=== PATIENT | male | born 1955 | race Caucasian/White ===

== ENCOUNTER → 2022-10-02 | Outpatient (CLI) | payer MEDICARE, OTHER, SELFPAY ==
--- NOTE | 2022-10-02 08:17 | PCM.CR.HP2 ---
CR - History & Physical - General Arrival date:: 10/02/22 Arrival time:: 08:16 Date of Referral:: 09/25/22 Date of CR Evaluation:: 10/02/22 Referring Physician: Dr. Oleksandr Gipson Primary Diagnosis: S/P PCI w/coronary stenting - History of Present Cardiac Event Onset Date: Enter Onset Date of cardiac illnesses in Comment field below PTCA or coronary stenting:: Yes - Z95.5 Type of Symptoms:: Shortness of breath, stress test, EKG and then after the diagnostic tests sent to clinical lab technologist and had stent. Interventions with present event:: Daignostic testing and determined cath was needed, placed stent - Sleep Disorder Evaluation Hx of Sleep Apnea: No Do you snore loudly (louder than talking or can be heard through closed doors)?: No Do you often feel tired/ fatigued/ sleepy during daytime?: No Has anyone observed you stop breathing during sleep?: No History of Hypertension (for STOP score): Yes STOP Results: Negative - Medications Home Medications: Ambulatory Orders Medication Instructions Recorded amlodipine 10 mg tablet (Norvasc) 10 mg PO DAILY 10/02/22 aspirin 81 mg tablet 81 mg PO DAILY 10/02/22 chlorthalidone 25 mg tablet 25 mg PO DAILY 10/02/22 empagliflozin 10 mg tablet 10 mg PO DAILY 10/02/22 (Jardiance) fenofibrate nanocrystallized 145 145 mg PO DAILY 10/02/22 mg tablet (Tricor) insulin glargine 100 unit/mL 44 unit subcut DAILY 10/02/22 subcutaneous solution lisinopril 40 mg tablet 40 mg PO DAILY 10/02/22 metformin 1,000 mg tablet 1,000 mg PO BID 10/02/22 metoprolol tartrate 25 mg tablet 25 mg PO BID 10/02/22 rosuvastatin 10 mg tablet (Crestor) 10 mg PO DAILY 10/02/22 semaglutide 1 mg/dose (2 mg/1.5 1 mg subcut QWEEK 10/02/22 mL) subcutaneous pen injector (Ozempic) sildenafil 100 mg tablet (Viagra) 100 mg PO DAILY PRN Erectile 10/02/22 Dysfunction ticagrelor 90 mg tablet (Brilinta) 90 mg PO Q12H 10/02/22 - Allergies Allergies/Adverse Reactions: Allergies No Known Drug Allergies Allergy (Verified 10/02/22 08:30) Other Advanced Directives - Advanced Directives Power of Commercial Account Manager: Yes Living Will: Yes Advance Directives Information Provided: No Advance Directives on File: No DNR Order?:: No - MOLST See MOLST form: No Past Medical History - Covid-19 Screening Fever: No Unexplained muscle aches: No Current respiratory symptoms: No Upper respiratory infections symptoms: No Gastro-intestinal symptoms: No Prq-Ziix-Vnftnd symptoms: No Has tested positive for COVID-19 in last 30 days: No Date of testin10/02/22 - Fuly vaccinated Had contact w/person w/symptoms or Covid-19 (+) last 14 days: No Has High Risk Exposures ID'd by Health dept/Inf Control team: No 65 years or older:: Yes Lives in Assisted Living facility:: No Has a serious heart condition:: No Immunocompromised:: No Severely obese (Body Mass Index of 40 or higher):: No Diabetic:: Yes Has chronic kidney disease undergoing dialysis:: No Has liver disease:: No - Past Medical Illness Medical History: Past Medical History (Last Updated 10/02/22 @ 08:40 by Samson Colon CRT, BOILER ASSISTANT OPERATOR, BS) Atherosclerotic heart disease of [place] coronary artery without angina pectoris I25.10 Benign prostatic hyperplasia N40.0 Bradycardia R00.1 Erectile dysfunction N52.9 Essential (primary) hypertension I10 History of left heart catheterization Z98.890 Hyperlipidemia, unspecified E78.5 Obesity (BMI 30.0-34.9) E66.9 Type 2 diabetes mellitus without complications E11.9 - Past Surgical History Surgical History: Past Surgical History (Last Updated 10/02/22 @ 08:46 by Samson Colon CRT, BOILER ASSISTANT OPERATOR, BS) History of back surgery Z98.890 Social History - Smoking History Smoking Status: Former smoker - 1997 Hx Tobacco Use: Yes Hx Smoking Exposure: Yes - Alcohol Use Alcohol Usage: No - Substance Abuse Hx Substance Use: No - Occupation 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 Left click = Reports ([place]) Review of Present Symptoms: Reports: Shortness of Breath with Exertion, Fatigue, Appetite - Normal. Denies: Shortness of Breath at Rest, Angina, Dizziness/Lightheadedness, Heart Arrhythmia/Irregularities, Appetite - Special Diet - Low sodium, Low Fat, No added sugar (Diabetic), Sleep - Normal - wake up alot, about half of what it was prior, Sexual Changes - Pain Is Patient Pain Free?: Yes Pain Location: none Pain Level: 0/10 Risk Factor Assessment - Vital Signs Temperature: 97 F - 8 Respiratory Rate: 14 Pulse Ox: 99 Blood Pressure: 136/74 - Pulse Pulse Rate: 72 Pulse Rhythm: Regular - Hypertension Blood Pressure Sitting - Left Arm: 136/74 - Diabetes Diabetic History: Type II, Medication Dependent, Insulin Dependent - Obesity Height: 5 ft 8 in Weight:: 200 lb Weight in Pounds: 200.0 lbs Weight Source: Stated by Patient Body Mass Index (BMI): 30.4 Nutritional Referral for Obesity: Yes - Physical Inactivity Physical Inactivity: Reg Exercise 30 min/day, Physically demanding job, Recreational activity - Risk Stratification Risk Guidelines: Lowest Risk: Risk Factor for Dyslipidemia, Risk Factor for Diabetes, Risk Factor for Obesity, Risk Factor for Hypertension Motivation - Motivation to Participate On a scale of 1 to 10, how prepared are you to commit to attending program?: 9 What do you see as barriers to successfully being able to complete the program?: no What do you see as the benefits of succesfully completing the program? In other words, what do you hope to get out of participating in the program?: More engergy, healthier Are there issues you are dealing with that will interfere with completing the program?: no Do you have a spouse or signficant other, family or friends who will help support you to complete the program?: Yes
--- NOTE | 2022-10-02 08:18 | CR.ITP_ITS ---
Diagnosis - General Information Admitting Diagnosis: S/P PCI w/coronary stenting Secondary Diagnosis: I25.10, DM Type II, HLD, HTN, Obesity Personal Learning Style:: Audio/Visual, Written Barriers to Learning: Vision Impairment Stage of change r/t lifestyle modifications:: Action Gave educational material for:: Treating Heart Disease, Emotions & Heart Disease, Stress Management & Relaxation, Sleep Disorders & Heart Disease, How The Heart Works, What it means to have Heart Disease, How Coronary Artery Disease is Diagnosed, Heart Procedures, What Heart Medications Do, Risk Factors & Modifications, Living an Active Life, Nutrition - Education/Goals Individual Counseling: Initial Assessment: Abnormal Cholesterol Levels, High Blood Pressure, Overweight/Obesity, Diabetes Cardiac Rehabilitation Goals: 1. Maintain the individual as the primary focus of care. 2. To improve the patient's quality of life. 3. Identification of c ardiac risk factors and provide cardiac risk factor management. 4. Enhance the psychosocial status of the patient. 5. Reconditioning enough to allow the patient to resume customary activities. 6. Control symptoms of cardiac disease Personal Goals: Initial Assessment: Quit smoking (participate in smoking cessation, Improve management of stress and emotions, Improve energy level, Improve knowledge of cardiac disease, Improve muscle strength and endurance, Improve diet and eating habits (eat healthier), Control risk factors (learn risk factor modification) Scale for measuring improvement of personal goals: Enter appropriate number in Comments. 2 = Unchanged. 3 = Slightly Better. 4 = Moderate Improvement. 5 = Met my Goal - Diagnosis & Disease Process Outcomes/Goals: Pt IDs own risk factors & lifestyle modifications by Session 10, Verbalizes symptoms of angina & response by session 3., Pt independently manages Plan/Interventions: Assist Pt to ID & engage in lifestyle modification to reduce CVD risk, Instruct on individual risk factors, Review symptoms of angina & laurie gency actions, Review secondary diagnosis & identify educational needs. - Safety Referral to Physical Therapy: No Referral to [facility] Case Management: No Fall Risk Assessed:: Yes Assistive Devices:: None Exercise - Initial Assessment - Visit Date of Eval: 10/02/22 Session #:: 0 - pre-cardiac rehab evaluation Mets: Pre-: >7 METS for 30 minutes by discharge - Physician Prescribed Exercise Modalities: Treadmill, Rower, Airdyne Frequency: 3x/week for 12 weeks [36 sessions] Intensity: 60-80% of age predicted maximum heart rate reserve Duration: 30 - 45 minutes Current METSs:: 3.0 Target Heart Rate:: 100-115 Resting Blood Pressure: 136/74 EKG Type: Sinus Rhythm Current Physical Activity or Exercising minutes: Physically Active Daily - Outcomes & Goals Goals:: Verbalizes understanding of THR, RPE & goal METS by session 6, Documents in home exercise log/reports 30 min aerobic 5 day/wk by DC, Demonstrates accurate pulse taking by DC - Intervention & Plan Exercise Program Goals: Instruct on personal THR & RPE, Instruct on MET level & personal MET goal, Show patient to take own pulse /validate performance until accurate, Instruct on home exercise - Physical Activity Home Exercise Physical Activity - Home Exercise: Safe Exercise, Warm-up, Self-monitoring, Cool-Down, Home Exercise > 30 min Daily, Sitting Time <3 hours/daily - Outcomes & Goals Outcomes/Goals: Demonstrates correct Warm-up/exercise Cool-Down (S3) if = 2.5 METs, Verbalizes symptoms of exercise intolerance by Session 3 (S3), Demonstrate safe equipment use (S3) & follows exercise prescrition (6) - Intervention & Plan Plan/Intervention: Instruct warm-up & cool-down if exercising at > 2 METs, Instruct on symptoms of exercise intolerance & actions to take, Instruct & monitor on saf, Assess intial functional capacity & safety risk Nutrition - Initial Assessment - Program Goals Nutrition Program Goals: LDL <100 optimal. 100 - 129 Near optimal. 130 - 159 Borderline High. 160 - 189 High. Total Cholesterol <200 desirable. 200 - 239 Borderline High. >/= 240 High. HDL < 40 Low >/=60 High. Triglycerides <150 desirable. <199 optimal. VlDL 5 - 40. HgbA1C <7%. BMI <25 Patient has diagnosis of Hyperlipidemia (ICD E78)?: Yes - Visit Date of Assessment:: 10/02/22 Session #:: 0 [facility] - Cholesterol/Lipids (Other Core Measures) Triglycerides (mg/dL): 0 - Current labs unavailable Determine presence & major risk factors that modify LDL goal: Hypertension or hypertensive medication, Family history of premature CHD in Male < 55 years: female <65 yearsFa, Age men > 45 years; women >/= 55 years Outcomes/Goals: Pt IDs own risk factors & lifestyle modifications by Session 10, Verbalizes symptoms of angina & response by session 3., Pt independently manages Intervention/Plan: Instruct on personal lipid levels & lipid goals/NCEP guidelines, Instruct on cholesterol - Diabetes (Other Core Measures) Diabetes Type: Diagnosis Type II ICD-10 E11 Fasting blood glucose:: 0 - Current labs unavailable Outcomes/Goals:: Able to state symptoms of, Able to state, Able to state Intervention/Plan:: Instruct on, Refer to, Instruct on - Weight Mgt (Other Care) Not Applicable: No Height: 5 ft 8 in Weight:: 200 lb BMI: 30.4 Diagnosis Overweight/Obesity BMI> 30% ICD-10 E66: Yes Diagnosis High BMI/Morbid Obesity BMI> 35% ICD-10 Z68: No Outcomes/Goals: Pt sets, maintains & shows weight loss goal & trend during rehab Intervention/Plan: Instruct on ideal BMI & set weight loss goal w/patient, Assist pt to ID & incorporate diet changes for weight loss by S9, Refer to Structured Weight Loss program as appropriate, Encourage goal of using 250- 300dcal per session for weight loss - Healthy Eating Habits Will attend diet classes:: Yes Outcomes/Goals:: Consume diet rich in vegs,fruits,whole grain/high fiber,fish,lean meat, Limit sat/trans fats,cholesterol & added salts & sugars Intervention/Plan:: Assess current eating habits - Education Gave educational materials for:: Signs & symptoms of hypoglycemia, Signs & sympt oms of hyperglycemia, Relate diabetes to coronary artery disease, Healthy eating Nutrition - 30-Day Assessment Nutrition - 60-Day Assessment Nutrition - 90-Day Assessment Nutrition - Final Assessment Core - Initial Assessment - Visit Date of Eval: 10/02/22 Session #:: 0 - Pre-cardaic rehab evaluation - Medication Compliance Preventative Medication(s):: Aspirin, Clopidogrel/P2Y12 inhibit, Statin/lipid, Beta prabha H/O mental health issues: depression, anxiety, or addiction?: No Doesn?t believe in the benefits of treatment?: No Believes medications are unnecessary or harmful?: No Has a concern about medication side effects?: No Expresses concern over the cost of medications?: No Outcomes/Goals: Verbalizes medications,desired effect & common side effects @ DC, Pt self-reports following medication regimen, Keeps card in wallet w/medications listed by DC Interventions/plans: Instruct on medication effects & side effects, Review medication list w/patient every two weeks, Instruct importance of taking meds as ordered & assist problem solving - Tobacco Use Tobacco Use: Non-smoker - Hypertension Hypertension Diagnosis:: Hypertension ICD-10 I10 Resting Blood Pressure:: 136/74 - Stage 1 HTN [place] [employer] Hypertension Guidelines: [place] [employer] Hypertension Guidelines. Normal BP Less than 120/80. Elevated BP 120/80. Hypertension Stage 1: BP 130-139/80-89. Hypertesnion Stage 2: BP 140 or higher/90 or higher. Hypertension Crisis: BP higher than 180/120 Outcomes/Goals: Able to verbalize/achieve optimal blood pressure <130/80, Incorporates diet changes & exercise for blood pressure control by DC Interventions/plan: Instruct on optimal blood pressure, hypertension & medications, Instruct on effects of sodium, alcohol, stress, exercise &hypertension - Tobacco Cessation Referral Smoking Cessation Referral:: No Individual Education/Counseling:: No Education Schedule Given:: Yes Core - 30-Day Assessment Core - 60-Day Assessment Core - 90 Day Assessment Core - Final Assessment Psychosocial - Initial Assess - VIsit Date of Eval: 10/02/22 Session #:: 0 - Pre-cardiac Rehab evaluation Not Applicable: Yes History of previous Mental disease:: No - Psychosocial Test Tool Used:: [employer] QOL Cardiac, PHQ-9 Questionnaire phq-9 Severity: Severity. 1-4 Minimal Depression. 5-9 Mild Depression. 10-14 Moderate Depression. 15-19 Moderately Sever Depression. 20-27 Severe Depression. Rule: - Referral to Behavioral Health PS - Interventions: Yes Attend Stress Management Classes, No Referral to Behavioral Health if PHQ-9 score >9:, No Referral to [facility], No Referral to Physician if PHQ-9 if score is 5-9: - Outcomes/Goals: See list Psychosocial Outcomes/Goals:: ID's personal stressors & 2 strategies to manage stress by discharge - Intervention/Plan: See List Interventions/Plan:: Assess stressors,coping strategies & signs of derpression on admission, Instruct/assist pt to develop coping & personal stress Mgt strategies, Instruct patient to recognize signs & symptoms of depression, Instruct patient to recog Psychosocial - 30-Day Assess Psychosocial - 60-Day Assess Psychosocial - 90-Day Assess Psychosocial - Final Assessmen Patient Health Questionnaire Initial Assessment 1. Little interest or pleasure in doing things: Not at all 2. Feeling down, depressed, or hopeless: Not at all 3. Trouble falling or staying asleep, or sleeping too much: Not at all 4. Feeling tired or having little energy: More than half the days 5. Poor appetite or overeating: Not at all 6. Feeling bad about yourself -- or that you are a failure or have let yourself or your family down: Not at all 7. Trouble concentrating on things, such as reading the newspaper or watching television: Not at all 8. Moving or speaking so slowly that other people could have noticed. Or the opposite - being so fidgety or restless that you have been moving around a lot more than usual: Not at all 9. Thoughts that you would be better off , or of hurting yourself in some way: Not at all How difficult have these problems made it for you to do your work, take care of things at home, or get along with other people?: Not difficult at all Total Score: 2 DANNY-Q SV Test - Statements CAD is a disease of the arteries in the heart: False Examples of risk factors for heart disease: True Angina is chest pain or discomfort: True The benefits of resistance training include: True Eating more meat and dairy products: False Anti-platelet medications such as aspirin are important: True The only effective way to manage stress: False An exercise warm-up slowly increases heart rate: True Prepared, processed foods usually have high sodium: I Don't Know Depression is common after a heart attack: True The statin medications lower cholesterol: True To control blood pressure, lower the amount of sodium: True If someone gets chest discomfort during walking: False Transfats are partially hydrogenated vegetable oils: True Sleep apnea that is not treated increases the risk: False To control cholesterol, one should become a vegetarian: I Don't Know Someone knows if he/she is exercising at the right level: True Diabetes cannot be prevented with exercise & health eating: False Stress is a large risk for heart attack: True A diet that can help lower blood pressure is rich in: True - Total Score Total Correct Responses: 18 Self-Efficacy 30-Day Re-eval Assessment We would like to know how confident you are in doing certain activities. Please select your confidence level for:: Select your confidence level for the following using the scale 1-10 where 1 is not at all confident and 10 is totally confident. Your score is the average of all 6 responses. Fatigue: How confident are you that you can keep the fatigue caused by your disease from interfering with the things you want to do? Select Number: 5 Physical Discomfort or Pain: How confident are you that you can keep the physical discomfort or pain of your disease from interfering with the things you want to do? Select Number: 5 Emotional Distress: How confident are you that you can keep the emotional distress caused by your disease from interfering with the things you want to do? Select Number: 9 Other Symptoms or Health Problems: How confident are you that you can keep other symptoms or health problems from interfering with the things you want to do? Select Number: 5 Different Tasks and Activities: How confident are you that you can do the different tasks and activities needed to manage your health condition so as to reduce your need to see a doctor? Select Number: 9 Medication: How confident are you that you can do things other than just taking medication to reduce how much your illness affects your everyday life? Select Number: 6 Total Score:: 6 We would like to know how confident you are in doing certain activities. Please select your confidence level for:: Select your confidence level for the following using the scale 1-10 where 1 is not at all confident and 10 is totally confident. Your score is the average of all 6 responses. Fatigue: How confident are you that you can keep the fatigue caused by your disease from interfering with the things you want to do? Physical Discomfort or Pain: How confident are you that you can keep the physical discomfort or pain of your disease from interfering with the things you want to do? Emotional Distress: How confident are you that you can keep the emotional distress caused by your disease from interfering with the things you want to do? Other Symptoms or Health Problems: How confident are you that you can keep other symptoms or health problems from interfering with the things you want to do? Different Tasks and Activities: How confident are you that you can do the different tasks and activities needed to manage your health condition so as to reduce your need to see a doctor? Medication: How confident are you that you can do things other than just taking medication to reduce how much your illness affects your everyday life? Nutrition Survey - Nutrition Survey Initial Have you lost >10 lbs over the past 2 months without trying?: No Are you following a special diet at home for diabetes, low fat, or low salt?: Yes Are you interested in meeting with a dietitian for help understanding your diet?: Yes Do you eat less than 3 meals a day?: No Do you eat fatty meats (currie, sausage, ribs, etc), fried foods, desserts, large amounts of salad dressings, margarine, butter, or cheese most days?: Yes Do you have food allergies? [Enter types in comment field]: No Do you eat in restaurants more than 3 times a week?: No Do you season food with salt, seasoning salt, or garlic salt?: Yes Do you used canned, boxed, frozen meals, or soups, seasoning packets?: No Total Score:: 4
[2022-10-02 08:50] VITALS: BP 136/74; PULSE 72; RESP 14; TEMP 36.1; O2SAT 99; BMI 30.4
[2022-10-02 09:19] VITALS: BP 136/74; BMI 30.4
== END | disposition home or self-care (01) ==
DX: Z95.5 Presence of coronary angioplasty implant and graft (principal)

== ENCOUNTER 2022-10-09 09:15 | Outpatient (RCR) | payer MEDICARE, OTHER, SELFPAY ==
[2022-10-02 09:08] VITALS: BMI 30.4
== END 2022-10-20 23:59 ==
LOC: CR 09:15
DX: Z95.5 Presence of coronary angioplasty implant and graft (principal)
CPT/HCPCS: 93798

== ENCOUNTER 2022-11-20 09:15 | Outpatient (RCR) | payer MEDICARE, OTHER, SELFPAY ==
[2022-10-02 09:19] VITALS: BMI 30.4
--- NOTE | 2022-11-01 07:32 | PCM.CR.ITP ---
Exercise - Initial Assessment Visit Session #:: 3 Comments:: Patient has only attnded 3 sessions to date. His last session was on 10/09/2022 and the patient has not returned to CR. Psychosocial - Initial Assess Target Goals Target Goals Nutrition Survey Nutrition Survey Instructions Scoring Instructions Exercise - 30-day Assessment Visit Date of Eval: 11/01/22 Session #:: 3 Comments:: Patient has only attnded 3 sessions to date. His last session was on 10/09/2022 and the patient has not returned to CR. Nutrition - 30-Day Assessment Program Goals Nutrition Program Goals Patient has diagnosis of Hyperlipidemia (ICD E78)?: Yes Visit Date of Eval: 11/01/22 Session #:: 3 Core - 30-Day Assessment Visit Date of Eval: 11/01/22 Session #:: 3 Psychosocial - 30-Day Assess VIsit Date of Eval: 11/01/22 Session #:: 3 Not Applicable: Yes History of previous Mental disease:: No Target Goals Target Goals Psychosocial - 60-Day Assess Target Goals Target Goals Psychosocial - 90-Day Assess Target Goals Target Goals Psychosocial - Final Assessmen Target Goals Target Goals
== END 2022-11-20 23:59 ==
LOC: CR 09:15
DX: I25.10 Atherosclerotic heart disease of native coronary artery without angina pectoris (principal); Z95.5 Presence of coronary angioplasty implant and graft
CPT/HCPCS: 93798

== ENCOUNTER 2022-12-20 08:00 | Outpatient (RCR) | payer MEDICARE, OTHER, SELFPAY ==
[2022-10-02 09:19] VITALS: BMI 30.4
--- NOTE | 2022-11-29 11:33 | CR.ITP_ITS ---
Nutrition - Initial Assessment Weight Mgt (Other Care) Height: 5 ft 8 in Weight:: 200 lb BMI: 30.4 Psychosocial - Initial Assess Target Goals Target Goals Patient Health Questionnaire PHQ-9 Screening 60-Day Re-eval Assessment: 1. Little interest or pleasure in doing things: Not at all 2. Feeling down, depressed, or hopeless: Not at all 3. Trouble falling or staying asleep, or sleeping too much: Not at all 4. Feeling tired or having little energy: More than half the days 5. Poor appetite or overeating: Not at all 6. Feeling bad about yourself -- or that you are a failure or have let yourself or your family down: Not at all 7. Trouble concentrating on things, such as reading the newspaper or watching television: Not at all 8. Moving or speaking so slowly that other people could have noticed. Or the opposite - being so fidgety or restless that you have been moving around a lot more than usual: Not at all How difficult have these problems made it for you to do your work, take care of things at home, or get along with other people?: Not difficult at all Total Score: 2 Self-Efficacy 6-Item Scale 60-Day Re-eval Assessment: We would like to know how confident you are in doing certain activities. Please select your confidence level for: Fatigue Select Number: 5 Physical Discomfort or Pain Select Number: 5 Emotional Distress Select Number: 9 Other Symptoms or Health Problems Select Number: 5 Different Tasks and Activities Select Number: 9 Medication Select Number: 6 Total Score:: 6 Nutrition Survey Nutrition Survey Instructions Scoring Instructions Exercise - 60-day Assessment Visit Date of Eval: 11/29/22 Session #:: 11 Physician Prescribed Exercise Modalities: Treadmill, Airdyne and NuStep Frequency: 3x/week for 12 weeks [36 sessions] Intensity: 60-80% of age predicted maximum heart rate reserve Duration: 30 - 45 minutes Current METSs:: 4 Target Heart Rate:: 100-115 Current RPE:: 12-13 Maximum Excercise HR:: 101 Resting Blood Pressure: 112/60 Maximum Exercise Blood Pressure: 140/70 EKG Type: NSR to ST with rare PAC and PVC Outcomes & Goals Goals:: Verbalizes understanding of THR, RPE & goal METS by session 6, Documents in home exercise log/reports 30 min aerobic 5 day/wk by DC, Demonstrates accurate pulse taking by DC and Other additional outcome/goals: see below Intervention & Plan Exercise Program Goals: Instruct on personal THR & RPE, Instruct on MET level & personal MET goal, Show patient to take own pulse /validate performance until accurate, Instruct on home exercise and Other additional plan/int 30-day Reassessments 30 day Reassessments:: Progressing Reassessment Notes & Comments:: pulse taking demonstrated Physical Activity Home Exercise Physical Activity - Home Exercise: Safe Exercise, Warm-up, Self-monitoring, Cool-Down, Home Exercise > 30 min Daily and Sitting Time <3 hours/daily Outcomes & Goals Outcomes/Goals: Demonstrates correct Warm-up/exercise Cool-Down (S3) if = 2.5 METs, Verbalizes symptoms of exercise intolerance by Session 3 (S3), Demonstrate safe equipment use (S3) & follows exercise prescrition (6) and Other: See below Intervention & Plan Plan/Intervention: Instruct warm-up & cool-down if exercising at > 2 METs, Instruct on symptoms of exercise intolerance & actions to take, Instruct & monitor on saf, Assess intial functional capacity & safety risk and Other See below 30-day Reassessments 30 day Reassessments:: Progressing Reassessment Notes & Comments:: cool down encouraged Nutrition - 30-Day Assessment Weight Mgt (Other Care) Height: 5 ft 8 in Weight:: 200 lb BMI: 30.4 Nutrition - 60-Day Assessment Program Goals Nutrition Program Goals Patient has diagnosis of Hyperlipidemia (ICD E78)?: Yes Visit Date of Eval: 11/29/22 Session #:: 11 Cholesterol/Lipids (Other Core Measures) Determine presence & major risk factors that modify LDL goal: Hypertension or hypertensive medication, Low HDL cholesterol <40 mg/dL*, Family history of premature CHD in Male < 55 years: female <65 yearsFa and Age men > 45 years; women >/= 55 years Outcomes/Goals: Pt IDs own risk factors & lifestyle modifications by Session 10, Verbalizes symptoms of angina & response by session 3., Pt independently manages and Other Additional Outcomes/Goals: Intervention/Plan: Advocate for lipid panel cholesterol medication if applicable, Instruct on personal lipid levels & lipid goals/NCEP guidelines, Instruct on cholesterol and Other additional plan/int 30-day Reassessments:: Progressing Reassessment Notes & Comments:: encouraged to do blood draws Diabetes (Other Core Measures) Diabetes Type: Diagnosis Type II ICD-10 E11 Outcomes/Goals:: Able to state symptoms of, Able to state, Able to state and Other additional Intervention/Plan:: Instruct on, Refer to, Instruct on and Other Weight Mgt (Other Care) Height: 5 ft 8 in Weight:: 200 lb BMI: 30.4 Diagnosis Overweight/Obesity BMI> 30% ICD-10 E66: Yes Diagnosis High BMI/Morbid Obesity BMI> 35% ICD-10 Z68: No Outcomes/Goals: Pt sets, maintains & shows weight loss goal & trend during rehab and Other additional outcomes/goals Intervention/Plan: Instruct on ideal BMI & set weight loss goal w/patient, Assist pt to ID & incorporate diet changes for weight loss by S9, Refer to Structured Weight Loss program as appropriate, Encourage goal of using 250- 300dcal per session for weight loss and Other additional plan/interventions 30 day Reassessments:: Progressing Healthy Eating Habits Reassessment Notes & Comments:: pt to attend nutrition class Education Gave educational materials for:: Signs & symptoms of hypoglycemia, Signs & symptoms of hyperglycemia, Relate diabetes to coronary artery disease and Healthy eating Core - 60-Day Assessment Visit Date of Eval: 11/29/22 Session #:: 11 Medication Compliance Preventative Medication(s):: Aspirin, Clopidogrel/P2Y12 inhibit, Statin/lipid and Beta prabha H/O mental health issues: depression, anxiety, or addiction?: No Doesn?t believe in the benefits of treatment?: No Believes medications are unnecessary or harmful?: No Has a concern about medication side effects?: No Expresses concern over the cost of medications?: No Outcomes/Goals: Verbalizes medications,desired effect & common side effects @ DC, Pt self-reports following medication regimen, Keeps card in wallet w/medications listed by DC and Other additional outcome/goals: Interventions/plans: Instruct on medication effects & side effects, Review medication list w/patient every two weeks, Instruct importance of taking meds as ordered & assist problem solving and Other additional Tobacco Use Tobacco Use: Non-smoker Hypertension Hypertension Diagnosis:: Hypertension ICD-10 I10 Resting Blood Pressure:: 112/60 [place] [employer] Hypertension Guidelines Peak Exercise Blood Pressure:: 140/70 Outcomes/Goals: Able to verbalize/achieve optimal blood pressure <130/80, Incorporates diet changes & exercise for blood pressure control by DC and Other additional outcomes/goals Interventions/plan: Instruct on optimal blood pressure, hypertension & medications, Instruct on effects of sodium, alcohol, stress, exercise &hypertension and Other additional plan/interventions 30 day Reassessments:: Progressing Reassessment Notes & Comments:: bp's are doing well Tobacco Cessation Referral Smoking Cessation Referral:: No Individual Education/Counseling:: No Education Schedule Given:: Yes Psychosocial - 30-Day Assess Target Goals Target Goals Psychosocial - 60-Day Assess VIsit Date of Eval: 11/29/22 Session #:: 11 History of previous Mental disease:: No Target Goals Target Goals Psychosocial - 90-Day Assess Target Goals Target Goals Psychosocial - Final Assessmen Target Goals Target Goals Nutrition - 90-Day Assessment Weight Mgt (Other Care) Height: 5 ft 8 in Weight:: 200 lb BMI: 30.4 Nutrition - Final Assessment Weight Mgt (Other Care) Height: 5 ft 8 in Weight:: 200 lb BMI: 30.4
[2022-11-29 11:42] VITALS: BP 112/60; BMI 30.4
== END 2022-12-21 23:59 ==
LOC: CR 08:00
DX: I25.10 Atherosclerotic heart disease of native coronary artery without angina pectoris (principal); Z95.5 Presence of coronary angioplasty implant and graft
CPT/HCPCS: 93798

== ENCOUNTER 2023-01-19 08:00 | Outpatient (RCR) | payer MEDICARE, OTHER, SELFPAY ==
[2022-11-29 11:42] VITALS: BMI 30.4
[2022-12-22 00:12] VITALS: BP 112/60
--- NOTE | 2022-12-29 08:01 | CR.ITP_ITS ---
Nutrition - Initial Assessment Weight Mgt (Other Care) Height: 5 ft 8 in Weight:: 200 lb BMI: 30.4 Psychosocial - Initial Assess Target Goals Target Goals Patient Health Questionnaire PHQ-9 Screening 90-Day Re-eval Assessment: 1. Little interest or pleasure in doing things: Not at all 2. Feeling down, depressed, or hopeless: Not at all 3. Trouble falling or staying asleep, or sleeping too much: Not at all 4. Feeling tired or having little energy: More than half the days 5. Poor appetite or overeating: Not at all 6. Feeling bad about yourself -- or that you are a failure or have let yourself or your family down: Not at all 7. Trouble concentrating on things, such as reading the newspaper or watching television: Not at all 8. Moving or speaking so slowly that other people could have noticed. Or the opposite - being so fidgety or restless that you have been moving around a lot more than usual: Not at all 9. Thoughts that you would be better off , or of hurting yourself in some way: Not at all How difficult have these problems made it for you to do your work, take care of things at home, or get along with other people?: Not difficult at all Total Score: 2 Self-Efficacy 6-Item Scale 90-Day Re-eval Assessment: We would like to know how confident you are in doing certain activities. Please select your confidence level for: Fatigue Select Number: 5 Physical Discomfort or Pain Select Number: 5 Emotional Distress Select Number: 9 Other Symptoms or Health Problems Select Number: 5 Different Tasks and Activities Select Number: 9 Medication Select Number: 6 Total Score:: 6 Nutrition Survey Nutrition Survey Instructions Scoring Instructions Exercise - 90-day Assessment Visit Date of Eval: 12/29/22 Session #:: 22 Physician Prescribed Exercise Modalities: Treadmill, Airdyne and NuStep Frequency: 3x/week for 12 weeks [36 sessions] Intensity: 60-80% of age predicted maximum heart rate reserve Duration: 30 - 45 minutes Current METSs:: 5 Target Heart Rate:: 100-115 Current RPE:: 12-13 Maximum Excercise HR:: 111 Resting Blood Pressure: 130/70 Maximum Exercise Blood Pressure: 130/70 EKG Type: NSR to ST with rare PVC Outcomes & Goals Goals:: Verbalizes understanding of THR, RPE & goal METS by session 6, Documents in home exercise log/reports 30 min aerobic 5 day/wk by DC, Demonstrates accurate pulse taking by DC and Other additional outcome/goals: see below Intervention & Plan Exercise Program Goals: Instruct on personal THR & RPE, Instruct on MET level & personal MET goal, Show patient to take own pulse /validate performance until accurate, Instruct on home exercise and Other additional plan/int 30-day Reassessments 30 day Reassessments:: Met Physical Activity Home Exercise Physical Activity - Home Exercise: Safe Exercise, Warm-up, Self-monitoring, Cool-Down, Home Exercise > 30 min Daily and Sitting Time <3 hours/daily Outcomes & Goals Outcomes/Goals: Demonstrates correct Warm-up/exercise Cool-Down (S3) if = 2.5 METs, Verbalizes symptoms of exercise intolerance by Session 3 (S3), Demonstrate safe equipment use (S3) & follows exercise prescrition (6) and Other: See below Intervention & Plan Plan/Intervention: Instruct warm-up & cool-down if exercising at > 2 METs, Instruct on symptoms of exercise intolerance & actions to take, Instruct & mon itor on saf, Assess intial functional capacity & safety risk and Other See below 30-day Reassessments 30 day Reassessments:: Met Nutrition - 30-Day Assessment Weight Mgt (Other Care) Height: 5 ft 8 in Weight:: 200 lb BMI: 30.4 Nutrition - 60-Day Assessment Weight Mgt (Other Care) Height: 5 ft 8 in Weight:: 200 lb BMI: 30.4 Core - 90 Day Assessment Visit Date of Eval: 12/29/22 Session #:: 22 Medication Compliance Preventative Medication(s):: Aspirin, Clopidogrel/P2Y12 inhibit, Statin/lipid and Beta prabha H/O mental health issues: depression, anxiety, or addiction?: No Doesn?t believe in the benefits of treatment?: No Believes medications are unnecessary or harmful?: No Has a concern about medication side effects?: No Expresses concern over the cost of medications?: No Outcomes/Goals: Verbalizes medications,desired effect & common side effects @ DC, Pt self-reports following medication regimen, Keeps card in wallet w/medications listed by DC and Other additional outcome/goals: Interventions/plans: Instruct on medication effects & side effects, Review medication list w/patient every two weeks, Instruct importance of taking meds as ordered & assist problem solving and Other additional 30-day Reassessments:: Met Hypertension Hypertension Diagnosis:: Hypertension ICD-10 I10 Resting Blood Pressure:: 130/70 [place] [employer] Hypertension Guidelines Peak Exercise Blood Pressure:: 130/70 Outcomes/Goals: Able to verbalize/achieve optimal blood pressure <130/80, Incorporates diet changes & exercise for blood pressure control by DC and Other additional outcomes/goals Interventions/plan: Instruct on optimal blood pressure, hypertension & medications, Instruct on effects of sodium, alcohol, stress, exercise &hypertension and Other additional plan/interventions 30 day Reassessments:: Met Tobacco Cessation Referral Smoking Cessation Referral:: No Individual Education/Counseling:: No Education Schedule Given:: Yes Psychosocial - 30-Day Assess Target Goals Target Goals Psychosocial - 60-Day Assess Target Goals Target Goals Psychosocial - 90-Day Assess VIsit Date of Eval: 12/29/22 Session #:: 22 Not Applicable: No Target Goals Target Goals Psychosocial - Final Assessmen Target Goals Target Goals Nutrition - 90-Day Assessment Program Goals Nutrition Program Goals Patient has diagnosis of Hyperlipidemia (ICD E78)?: Yes Visit Date of Eval: 12/29/22 Session #:: 22 Cholesterol/Lipids (Other Core Measures) Determine presence & major risk factors that modify LDL goal: Cigarette smoking, Hypertension or hypertensive medication, Low HDL cholesterol <40 mg/dL*, Family history of premature CHD in Male < 55 years: female <65 yearsFa and Age men > 45 years; women >/= 55 years Outcomes/Goals: Pt IDs own risk factors & lifestyle modifications by Session 10, Verbalizes symptoms of angina & response by session 3., Pt independently manages and Other Additional Outcomes/Goals: Intervention/Plan: Advocate for lipid panel cholesterol medication if applicable, Instruct on personal lipid levels & lipid goals/NCEP guidelines, Instruct on cholesterol and Other additional plan/int 30-day Reassessments:: Met Diabetes (Other Core Measures) Diabetes Type: Diagnosis Type II ICD-10 E11 Outcomes/Goals:: Able to state symptoms of, Able to state, Able to state and Other additional Intervention/Plan:: Instruct on, Refer to, Instruct on and Other 30-day Reassessments:: Met Weight Mgt (Other Care) Height: 5 ft 8 in Weight:: 200 lb BMI: 30.4 Diagnosis Overweight/Obesity BMI> 30% ICD-10 E66: Yes Diagnosis High BMI/Morbid Obesity BMI> 35% ICD-10 Z68: No Outcomes/Goals: Pt sets, maintains & shows weight loss goal & trend during rehab and Other additional outcomes/goals Intervention/Plan: Instruct on ideal BMI & set weight loss goal w/patient, Assist pt to ID & incorporate diet changes for weight loss by S9, Refer to Structured Weight Loss program as appropriate, Encourage goal of using 250- 300dcal per session for weight loss and Other additional plan/interventions 30 day Reassessments:: Met Healthy Eating Habits Will attend diet classes:: Yes Outcomes/Goals:: Consume diet rich in vegs,fruits,whole grain/high fiber,fish,lean meat, Limit sat/trans fats,cholesterol & added salts & sugars and Other additional outcome/goals: Intervention/Plan:: Assess current eating habits and Other Additional plan/interventions 30-day Reassessments:: Met Education Gave educational materials for:: Signs & symptoms of hypoglycemia, Signs & symptoms of hyperglycemia, Relate diabetes to coronary artery disease and Healthy eating Nutrition - Final Assessment Weight Mgt (Other Care) Height: 5 ft 8 in Weight:: 200 lb BMI: 30.4
[2022-12-29 08:09] VITALS: BP 130/70; BMI 30.4
== END 2023-01-20 23:59 ==
LOC: CR 08:00
DX: I25.10 Atherosclerotic heart disease of native coronary artery without angina pectoris (principal); Z95.5 Presence of coronary angioplasty implant and graft
CPT/HCPCS: 93798

== ENCOUNTER 2023-02-07 08:00 | Outpatient (RCR) | payer MEDICARE, OTHER, SELFPAY ==
[2022-12-29 08:09] VITALS: BMI 30.4
[2023-01-21 00:13] VITALS: BP 112/60; BP 130/70
--- NOTE | 2023-01-31 10:50 | CR.ITP_ITS ---
Exercise - Initial Assessment Physician Prescribed Exercise Modalities: Treadmill, Airdyne and NuStep Nutrition - Initial Assessment Program Goals Nutrition Program Goals Patient has diagnosis of Hyperlipidemia (ICD E78)?: Yes Weight Mgt (Other Care) Height: 5 ft 8 in Weight:: 199 lb BMI: 30.2 Core - Initial Assessment Hypertension Resting Blood Pressure:: 110/68 [place] [employer] Hypertension Guidelines Psychosocial - Initial Assess Target Goals Target Goals Patient Health Questionnaire PHQ-9 Screening Discharge Assessment: 1. Little interest or pleasure in doing things: Not at all 2. Feeling down, depressed, or hopeless: Not at all 3. Trouble falling or staying asleep, or sleeping too much: Not at all 4. Feeling tired or having little energy: More than half the days 5. Poor appetite or overeating: Not at all 6. Feeling bad about yourself -- or that you are a failure or have let yourself or your family down: Not at all 7. Trouble concentrating on things, such as reading the newspaper or watching television: Not at all 8. Moving or speaking so slowly that other people could have noticed. Or the opposite - being so fidgety or restless that you have been moving around a lot more than usual: Not at all 9. Thoughts that you would be better off , or of hurting yourself in some way: Not at all How difficult have these problems made it for you to do your work, take care of things at home, or get along with other people?: Not difficult at all Total Score: 2 Self-Efficacy 6-Item Scale Discharge Assessment: We would like to know how confident you are in doing certain activities. Please select your confidence level for: Fatigue Select Number: 5 Physical Discomfort or Pain Select Number: 5 Emotional Distress Select Number: 9 Other Symptoms or Health Problems Select Number: 5 Different Tasks and Activities Select Number: 9 Medication Select Number: 6 Total Score:: 6 Nutrition Survey Nutrition Survey Instructions Scoring Instructions Exercise - Final/Discharge Visit Date of Eval: 01/31/23 Session #:: 33 Physician Prescribed Exercise Modalities: Treadmill, Airdyne and NuStep Modalities: Treadmill, Airdyne and NuStep Frequency: 2x/week for 18 weeks [36 sessions] and 3x/week for 12 weeks [36 sessions] Intensity: 60-80% of age predicted maximum heart rate reserve Duration: 30 - 45 minutes Current METSs:: 7 Target Heart Rate:: 115-130 Current RPE:: 12-13 Maximum Heart Rate:: 112 Resting Blood Pressure: 110/68 Maximum Exercise Blood Pressure: 146/82 EKG Type: NSR to ST with rare PAC, PVC, Vent couplet Outcomes & Goals Goals:: Verbalizes understanding of THR, RPE & goal METS by session 6, Documents in home exercise log/reports 30 min aerobic 5 day/wk by DC, Demonstrates accurate pulse taking by DC and Other additional outcome/goals: see below Intervention & Plan Exercise Program Goals: Instruct on personal THR & RPE, Instruct on MET level & personal MET goal, Show patient to take own pulse /validate performance until accurate, Instruct on home exercise and Other additional plan/int 30-day Reassessments 30 day Reassessments:: Met Physical Activity Home Exercise Physical Activity - Home Exercise: Safe Exercise, Warm-up, Self-monitoring, Cool-Down, Home Exercise > 30 min Daily and Sitting Time <3 hours/daily Outcomes & Goals Outcomes/Goals: Demonstrates correct Warm-up/exercise Cool-Down (S3) if = 2.5 METs, Verbalizes symptoms of exercise intolerance by Session 3 (S3), Demonstrate safe equipment use (S3) & follows exercise prescrition (6) and Other: See below Intervention & Plan Plan/Intervention: Instruct warm-up & cool-down if exercising at > 2 METs, I nstruct on symptoms of exercise intolerance & actions to take, Instruct & monitor on saf, Assess intial functional capacity & safety risk and Other See below 30-day Reassessments 30 day Reassessments:: Met Nutrition - 30-Day Assessment Weight Mgt (Other Care) Height: 5 ft 8 in Weight:: 199 lb BMI: 30.2 Nutrition - 60-Day Assessment Weight Mgt (Other Care) Height: 5 ft 8 in Weight:: 199 lb BMI: 30.2 Core - Final Assessment Visit Date of Eval: 01/31/23 Session #:: 9 Medication Compliance Preventative Medication(s):: Aspirin, Clopidogrel/P2Y12 inhibit, Statin/lipid and Beta prabha H/O mental health issues: depression, anxiety, or addiction?: No Doesn?t believe in the benefits of treatment?: No Believes medications are unnecessary or harmful?: No Has a concern about medication side effects?: No Expresses concern over the cost of medications?: No Outcomes/Goals: Verbalizes medications,desired effect & common side effects @ DC, Pt self-reports following medication regimen, Keeps card in wallet w/medicat ions listed by DC and Other additional outcome/goals: Interventions/plans: Instruct on medication effects & side effects, Review medication list w/patient every two weeks, Instruct importance of taking meds as ordered & assist problem solving and Other additional 30-day Reassessments:: Met Tobacco Use Tobacco Use: Non-smoker Hypertension Hypertension Diagnosis:: Hypertension ICD-10 I10 Resting Blood Pressure:: 110/68 [place] [employer] Hypertension Guidelines Peak Exercise Blood Pressure:: 146/82 Outcomes/Goals: Able to verbalize/achieve optimal blood pressure <130/80, Incorporates diet changes & exercise for blood pressure control by DC and Other additional outcomes/goals Interventions/plan: Instruct on optimal blood pressure, hypertension & medications, Instruct on effects of sodium, alcohol, stress, exercise &hypertension and Other additional plan/interventions 30 day Reassessments:: Met Tobacco Cessation Referral Smoking Cessation Referral:: No Individual Education/Counseling:: No Education Schedule Given:: Yes Core - 60-Day Assessment Hypertension Resting Blood Pressure:: 110/68 [place] [employer] Hypertension Guidelines Psychosocial - 30-Day Assess Target Goals Target Goals Psychosocial - 60-Day Assess Target Goals Target Goals Psychosocial - 90-Day Assess Target Goals Target Goals Psychosocial - Final Assessmen VIsit Date of Eval: 01/31/23 Session #:: 33 Target Goals Target Goals Nutrition - 90-Day Assessment Weight Mgt (Other Care) Height: 5 ft 8 in Weight:: 199 lb BMI: 30.2 Nutrition - Final Assessment Program Goals Patient has diagnosis of Hyperlipidemia (ICD E78)?: Yes Visit Date of Assessment:: 01/31/23 Session #:: 33 Cholesterol/Lipids (Other Core Measures) Determine presence & major risk factors that modify LDL goal: Hypertension or hypertensive medication, Low HDL cholesterol <40 mg/dL*, Family history of premature CHD in Male < 55 years: female <65 yearsFa and Age men > 45 years; women >/= 55 years Outcomes/Goals: Pt IDs own risk factors & lifestyle modifications by Session 10, Verbalizes symptoms of angina & response by session 3., Pt independently manages and Other Additional Outcomes/Goals: Intervention/Plan: Advocate for lipid panel cholesterol medication if applicable, Instruct on personal lipid levels & lipid goals/NCEP guidelines, Instruct on cholesterol and Other additional plan/int 30-day Reassessments:: Met Diabetes (Other Core Measures) Diabetes Type: Diagnosis Type II ICD-10 E11 Outcomes/Goals:: Able to state symptoms of, Able to state, Able to state and Other additional Intervention/Plan:: Instruct on, Refer to, Instruct on and Other 30-day Reassessments:: Met Weight Mgt (Other Care) Height: 5 ft 8 in Weight:: 199 lb BMI: 30.2 Outcomes/Goals: Pt sets, maintains & shows weight loss goal & trend during rehab and Other additional outcomes/goals Intervention/Plan: Instruct on ideal BMI & set weight loss goal w/patient, Assist pt to ID & incorporate diet changes for weight loss by S9, Refer to Structured Weight Loss program as appropriate, Encourage goal of using 250- 300dcal per session for weight loss and Other additional plan/interventions 30 day Reassessments:: Met Healthy Eating Habits Will attend diet classes:: Yes Outcomes/Goals:: Consume diet rich in vegs,fruits,whole grain/high fiber,fish,lean meat, Limit sat/trans fats,cholesterol & added salts & sugars and Other additional outcome/goals: Intervention/Plan:: Assess current eating habits and Other Additional plan/interventions 30-day Reassessments:: Met Education Gave educational materials for:: Signs & symptoms of hypoglycemia, Signs & symptoms of hyperglycemia, Relate diabetes to coronary artery disease and Healthy eating
[2023-01-31 10:58] VITALS: BP 110/68; BMI 30.2
== END 2023-02-20 23:59 ==
LOC: CR 08:00
DX: I25.10 Atherosclerotic heart disease of native coronary artery without angina pectoris (principal); Z95.5 Presence of coronary angioplasty implant and graft
CPT/HCPCS: 93798

== ENCOUNTER → 2023-10-12 | Outpatient (CLI) | payer MEDICARE, OTHER, SELFPAY ==
[2023-01-31 10:58] VITALS: BMI 30.2
--- NOTE | 2023-10-12 08:03 | PCM.CR.HP2 ---
CR - History & Physical General Arrival date:: 10/12/23 Arrival time:: 08:03 Date of Referral:: 09/18/23 Date of CR Evaluation:: 10/12/23 Referring Physician: Dr. Robert Ferrer; Dr. Gee Don Primary Diagnosis: S/P AVR History of Present Cardiac Event Onset Date Heart valve replacement or repair:: Yes PTCA or coronary stenting:: Yes (2022 x 1 stent) Heart Failure EF <35%:: No (LVEF 58%) Type of Symptoms:: Shortness of breath; getting worse Interventions with present event:: Transplant of aortic valve Were there any complications?: no Medications Ambulatory Orders ?Medication ?Instructions ?Recorded amlodipine 10 mg tablet (Norvasc) 10 mg PO DAILY 10/02/22 aspirin 81 mg tablet 81 mg PO DAILY 10/02/22 chlorthalidone 25 mg tablet 25 mg PO DAILY 10/02/22 empagliflozin 10 mg tablet 10 mg PO DAILY 10/02/22 (Jardiance) fenofibrate nanocrystallized 145 145 mg PO DAILY 10/02/22 mg tablet (Tricor) insulin glargine 100 unit/mL 44 unit subcut DAILY 10/02/22 subcutaneous solution lisinopril 40 mg tablet 40 mg PO DAILY 10/02/22 metformin 1,000 mg tablet 1,000 mg PO BID 10/02/22 metoprolol tartrate 25 mg tablet 25 mg PO BID 10/02/22 rosuvastatin 10 mg tablet (Crestor) 10 mg PO DAILY 10/02/22 semaglutide 1 mg/dose (2 mg/1.5 1 mg subcut QWEEK 10/02/22 mL) subcutaneous pen injector (Ozempic) sildenafil 100 mg tablet (Viagra) 100 mg PO DAILY PRN Erectile 10/02/22 Dysfunction ticagrelor 90 mg tablet (Brilinta) 90 mg PO Q12H 10/02/22 Allergies Allergies No Known Drug Allergies Allergy (Verified 10/02/22 08:30) Other Sleep Disorder Evaluation Hx of Sleep Apnea: No Do you snore loudly (louder than talking or can be heard through closed doors)?: Yes Do you often feel tired/ fatigued/ sleepy during daytime?: No Has anyone observed you stop breathing during sleep?: No History of Hypertension (for STOP score): Yes STOP Results: Positive Advanced Directives Advanced Directives Power of Shackler: No Living Will: No Advance Directives Information Provided: Yes Advance Directives on File: No DNR Order?:: No Additional Comments:: Patient unclear of advanced Directives, knows if he has them they are not on file here at [facility]. MOLST See MOLST form: No Past Medical History Covid-19 Screening Physicial Symptoms Fever: No Unexplained muscle aches: No Current respiratory symptoms: No Upper respiratory infections symptoms: No Gastro-intestinal symptoms: No Wck-Zhba-Acigzh symptoms: No Other Clinical Concerns Has tested positive for COVID-19 in last 30 days: No Exposure Risk Had contact w/person w/symptoms or Covid-19 (+) last 14 days: No Has High Risk Exposures ID'd by Health dept/Inf Control team: No Pertinent Comorbidities 65 years or older:: Yes Lives in Assisted Living facility:: No Has a chronic lung disease or moderate to severe asthma:: No Has a serious heart condition:: No Immunocompromised:: No Severely obese (Body Mass Index of 40 or higher):: No Diabetic:: Yes Has chronic kidney disease undergoing dialysis:: No Has liver disease:: No Past Medical Illness Past Medical History (Updated 10/02/22 @ 08:40 by Samson Colon CRT, PRE PLANNING ADVISOR, BS) History of left heart catheterization Z98.890 Obesity (BMI 30.0-34.9) E66.9 Erectile dysfunction N52.9 Bradycardia R00.1 Benign prostatic hyperplasia N40.0 Type 2 diabetes mellitus without complications E11.9 Hyperlipidemia, unspecified E78.5 Essential (primary) hypertension I10 Atherosclerotic heart disease of [place] coronary artery without angina pectoris I25.10 Past Surgical History Past Surgical History (Updated 10/12/23 @ 08:14 by Samson Colon CRT, PRE PLANNING ADVISOR, BS) S/P AVR (aortic valve replacement) and aortoplasty (~09/18/23) Z95.2 History of back surgery Z98.890 Social History Smoking History Smoking Status: Former smoker Alcohol Use Alcohol Usage: Yes (Beer once in a great while) Substance Abuse Hx Substance Use: No Occupation 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 I stay active) Recreational Activities: I am able to engage in all my recreational activities Social Environment Status Marital Status: Current Living Arrangements Living Environment:: Spouse Children How many children do you have?: 4 Do any of your children live nearby?: Yes Safety Do you feel safe in your surroundings?: Yes Assistance Do you need any assistance at home?: No Review of Systems Review of Systems Hints Review of Present Symptoms: Reports Shortness of Breath with Exertion, Operative Discomfort (at the site of the incision), Wound Healing, Appetite - Normal and Sleep - Normal; Denies Shortness of Breath at Rest, Angina, Dizziness/Lightheadedness, Fatigue, Heart Arrhythmia/Irregularities, Appetite - Special Diet (Trying to follow a diet for Diabetes and heart healthy, but not doing well.) or Sexual Changes Pain Is Patient Pain Free?: No Pain Location: back (not allowed to lift anything heavy due to degenerative disc disease and lower back injury) Risk Factor Assessment Chief Complaint Chief Complaint: Pt is a 67 yr old male referred from the [facility] with S/P AVR Vital Signs Temperature: 97.7 F Respiratory Rate: 14 Pulse Ox: 96 Blood Pressure: 152/78 Pulse Pulse Rate: 58 Pulse Rhythm: Regular Hypertension How long have you been treated?: Years, can't remember when started taking BP medication. On medication(s)?: Yes Blood Pressure Sitting - Left Arm: 152/78 Stress Stress: - (None) Blood Cholesterol/Lipids Total Cholesterol (mg/dL) Goal = less than 200 mg/dL: 0 (No Lipid profile available from the [facility]) Diabetes Diabetic History: Type II Nutrition Referral for Diabetes: Yes Obesity Height: 5 ft 8 in Weight:: 198 lb Weight in Pounds: 198.0 lbs Weight Source: Stated by Patient Body Mass Index (BMI): 30.1 Nutritional Referral for Obesity: Yes Physical Inactivity Physical Inactivity: Reg Exercise 30 min/day (Walking daily about 30 minutes since his surgery.) and Recreational activity Risk Stratification Risk Guidelines: Lowest Risk: Risk Factor for Smoking, Risk Factor for Dyslipidemia, Risk Factor for Diabetes, Risk Factor for Sedentary Lifestyle and Risk Factor for Depression and Moderate Risk: Risk Factor for Obesity (BMI 30+) and Risk Factor for Hypertension (BP 152/78) For Smoking Smoking Risk Guidelines For Dyslipidemia Dyslipidemia Risk Guidelines For Diabetes Mellitus Diabetes Risk Guidelines For Obesity/Overweight Obesity/Overweight Risk Guidelines For Hypertension Hypertension Risk Guidelines For Sedentary Lifestyle Sedentary Lifestyle Risk Guidelines For Depression Depression Risk Guidelines Motivation Motivation to Participate On a scale of 1 to 10, how prepared are you to commit to attending program?: 10 What do you see as barriers to successfully being able to complete the program?: nope What do you see as the benefits of succesfully completing the program? In other words, what do you hope to get out of participating in the program?: Healthier, stronger, ragina stamina Are there issues you are dealing with that will interfere with completing the program?: Back pain Do you have a spouse or signficant other, family or friends who will help support you to complete the program?: Yes
--- NOTE | 2023-10-12 08:03 | PCM.CR.ITP ---
Diagnosis General Information Admitting Diagnosis: S/P AVR Secondary Diagnosis: DM Type II, HTN, HLD, CAD, Personal Learning Style:: Audio/Visual and Individual Preference Barriers to Learning: Vision Impairment Stage of change r/t lifestyle modifications:: Action Gave educational material for:: Treating Heart Disease, How The Heart Works, What it means to have Heart Disease, How Coronary Artery Disease is Diagnosed, Heart Procedures, What Heart Medications Do, Risk Factors & Modifications, Living an Active Life, Nutrition, Emotions & Heart Disease, Stress Management & Relaxation and Sleep Disorders & Heart Disease Education/Goals Individual Counseling: Initial Assessment: Abnormal Cholesterol Levels, High Blood Pressure, Overweight/Obesity (BMI 30.14) and Diabetes (DM Type II) Cardiac Rehabilitation Goals Scale for measuring improvement of personal goals Diagnosis & Disease Process Outcomes/Goals: Pt IDs own risk factors & lifestyle modifications by Session 10, Verbalizes symptoms of angina & response by session 3. and Pt independently manages Plan/Interventions: Assist Pt to ID & engage in lifestyle modification to reduce CVD risk, Instruct on individual risk factors, Review symptoms of angina & emergency actions and Review secondary diagnosis & identify educational needs. Safety Referral to Physical Therapy: No Referral to [facility] Case Management: No Fall Risk Assessed:: Yes Assistive Devices:: None Exercise - Initial Assessment Visit Date of Eval: 10/12/23 Session #:: 0 (PRE-PROGRAM EVALUATION) Mets: Pre-: >7 METS for 30 minutes by discharge Physician Prescribed Exercise Modalities: Treadmill, Schwinn Airdyne AD-7 and SciFit Stepper Frequency: 3x/week for 12 weeks [36 sessions] Intensity: 60-80% of age predicted maximum heart rate reserve Duration: 30 - 45 minutes Current METSs:: 3.0 Target Heart Rate:: 99-129 Resting Blood Pressure: 152/78 EKG Type: Normal Sinus Rhythm Current Physical Activity or Exercising minutes: Walking daily 30+ minutes Outcomes & Goals Goals:: Verbalizes understanding of THR, RPE & goal METS by session 6, Documents in home exercise log/reports 30 min aerobic 5 day/wk by DC and Demonstrates accurate pulse taking by DC Intervention & Plan Exercise Program Goals: Instruct on personal THR & RPE, Instruct on MET level & personal MET goal, Show patient to take own pulse /validate performance until accurate and Instruct on home exercise Physical Activity Home Exercise Physical Activity - Home Exercise: Safe Exercise, Warm-up, Self-monitoring, Cool-Down, Home Exercise > 30 min Daily and Sitting Time <3 hours/daily Outcomes & Goals Outcomes/Goals: Demonstrates correct Warm-up/exercise Cool-Down (S3) if = 2.5 METs, Verbalizes symptoms of exercise intolerance by Session 3 (S3) and Demonstrate safe equipment use (S3) & follows exercise prescrition (6) Intervention & Plan Plan/Intervention: Instruct warm-up & cool-down if exercising at > 2 METs, Instruct on symptoms of exercise intolerance & actions to take, Instruct & monitor on saf and Assess intial functional capacity & safety risk Nutrition - Initial Assessment Program Goals Nutrition Program Goals Patient has diagnosis of Hyperlipidemia (ICD E78)?: Yes Visit Date of Eval: 10/12/23 Session #:: 0 (Pre-Program Evaluation) Cholesterol/Lipids (Other Core Measures) Triglycerides (mg/dL): 0 (NO lipid profile available for patient) Determine presence & major risk factors that modify LDL goal: Hypertension or hypertensive medication and Age men > 45 years; women >/= 55 years Outcomes/Goals: Pt IDs own risk factors & lifestyle modifications by Session 10, Verbalizes symptoms of angina & response by session 3. and Pt independently manages Intervention/Plan: Instruct on personal lipid levels & lipid goals/NCEP guidelines and Instruct on cholesterol Referral to dietitian:: Yes Diabetes (Other Core Measures) Diabetes Type: Diagnosis Type II ICD-10 E11 Insulin dependent injection/pump?: Yes (Insulin Glargine 38 units, Tirzepatide 7.5mg weekly.) Non-Insulin Dependent?: Yes (Metformin 1,000mg BID, Jardiance 10mg.) Do you monitor your blood sugar at home?: Yes Referral to Diabetic Clinic:: Yes Outcomes/Goals:: Able to state symptoms of, Able to state and Able to state Intervention/Plan:: Instruct on, Refer to and Instruct on Weight Mgt (Other Care) Not Applicable: Yes Height: 5 ft 8 in Weight:: 198 lb BMI: 30.1 Diagnosis Overweight/Obesity BMI> 30% ICD-10 E66: Yes Diagnosis High BMI/Morbid Obesity BMI> 35% ICD-10 Z68: No Outcomes/Goals: Pt sets, maintains & shows weight loss goal & trend during rehab Intervention/Plan: Instruct on ideal BMI & set weight loss goal w/patient, Assist pt to ID & incorporate diet changes for weight loss by S9, Refer to Structured Weight Loss program as appropriate and Encourage goal of using 250-300dcal per session for weight loss Healthy Eating Habits Will attend diet classes:: Yes Outcomes/Goals:: Consume diet rich in vegs,fruits,whole grain/high fiber,fish,lean meat and Limit sat/trans fats,cholesterol & added salts & sugars Intervention/Plan:: Assess current eating habits Education Gave educational materials for:: Signs & symptoms of hypoglycemia, Signs & symptoms of hyperglycemia, Relate diabetes to coronary artery disease and Healthy eating Core - Initial Assessment Visit Date of Eval: 10/12/23 Session #:: 0 (Pre-program evaluation) Medication Compliance Preventative Medication(s):: Aspirin, Ticagrelor/P2Y12 inhibitor, Statin/lipid and Beta prabha H/O mental health issues: depression, anxiety, or addiction?: No Doesn?t believe in the benefits of treatment?: No Believes medications are unnecessary or harmful?: No Has a concern about medication side effects?: No Expresses concern over the cost of medications?: No Outcomes/Goals: Verbalizes medications,desired effect & common side effects @ DC, Pt self-reports following medication regimen and Keeps card in wallet w/medications listed by DC Interventions/plans: Instruct on medication effects & side effects, Review medication list w/patient every two weeks and Instruct importance of taking meds as ordered & assist problem solving Tobacco Use Tobacco Use: Non-smoker Hypertension Hypertension Diagnosis:: Hypertension ICD-10 I10 Resting Blood Pressure:: 152/78 [place] [employer] Hypertension Guidelines Outcomes/Goals: Able to verbalize/achieve optimal blood pressure <130/80 and Incorporates diet changes & exercise for blood pressure control by DC Interventions/plan: Instruct on optimal blood pressure, hypertension & medications and Instruct on effects of sodium, alcohol, stress, exercise &hypertension Tobacco Cessation Referral Smoking Cessation Referral:: No Individual Education/Counseling:: No Education Schedule Given:: Yes Psychosocial - Initial Assess VIsit Date of Eval: 10/12/23 Session #:: 0 (Pre-program evaluation) Not Applicable: Yes History of previous Mental disease:: No Target Goals Target Goals Psychosocial Test Tool Used:: PHQ-9 Questionnaire phq-9 Severity Referral to Behavioral Health PS - Interventions: Yes: Attend Stress Management Classes and No: Referral to Behavioral Health if PHQ-9 score >9:, No: Referral to [facility] and No: Referral to Physician if PHQ-9 if score is 5-9: Outcomes/Goals: See list Psychosocial Outcomes/Goals:: ID's personal stressors & 2 strategies to manage stress by discharge Intervention/Plan: See List Interventions/Plan:: Assess stressors,coping strategies & signs of derpression on admission, Instruct/assist pt to develop coping & personal stress Mgt strategies, Instruct patient to recognize signs & symptoms of depression and Instruct patient to recog Patient Health Questionnaire PHQ-9 Screening Initial Assessment: 1. Little interest or pleasure in doing things: Not at all 2. Feeling down, depressed, or hopeless: Not at all 3. Trouble falling or staying asleep, or sleeping too much: Not at all 4. Feeling tired or having little energy: Not at all 5. Poor appetite or overeating: Not at all 6. Feeling bad about yourself -- or that you are a failure or have let yourself or your family down: Not at all 7. Trouble concentrating on things, such as reading the newspaper or watching television: Not at all 8. Moving or speaking so slowly that other people could have noticed. Or the opposite - being so fidgety or restless that you have been moving around a lot more than usual: Not at all 9. Thoughts that you would be better off , or of hurting yourself in some way: Not at all How difficult have these problems made it for you to do your work, take care of things at home, or get along with other people?: Not difficult at all Total Score: 0 DANNY-Q SV Test Statements CAD is a disease of the arteries in the heart: False Examples of risk factors for heart disease: True Angina is chest pain or discomfort: True The benefits of resistance training include: True Eating more meat and dairy products: False Anti-platelet medications such as aspirin are important: True The only effective way to manage stress: False An exercise warm-up slowly increases heart rate: True Prepared, processed foods usually have high sodium: True Depression is common after a heart attack: True The statin medications lower cholesterol: True To control blood pressure, lower the amount of sodium: True If someone gets chest discomfort during walking: False Transfats are partially hydrogenated vegetable oils: True Sleep apnea that is not treated increases the risk: False To control cholesterol, one should become a vegetarian: False Someone knows if he/she is exercising at the right level: True Diabetes cannot be prevented with exercise & health eating: True Stress is a large risk for heart attack: True A diet that can help lower blood pressure is rich in: True Total Score Total Correct Responses: 19 Self-Efficacy 6-Item Scale Initial Assessment: We would like to know how confident you are in doing certain activities. Please select your confidence level for: Fatigue Select Number: 9 Physical Discomfort or Pain Select Number: 9 Emotional Distress Select Number: 10 Other Symptoms or Health Problems Select Number: 9 Different Tasks and Activities Select Number: 10 Medication Select Number: 10 Total Score:: 9 Nutrition Survey Nutrition Survey Instructions Scoring Instructions Nutrition Survey Initial: Have you lost >10 lbs over the past 2 months without trying?: No Are you following a special diet at home for diabetes, low fat, or low salt?: Yes Are you interested in meeting with a dietitian for help understanding your diet?: Yes Do you eat less than 3 meals a day?: No Do you eat fatty meats (currie, sausage, ribs, etc), fried foods, desserts, large amounts of salad dressings, margarine, butter, or cheese most days?: No Do you have food allergies? [Enter types in comment field]: No Do you eat in restaurants more than 3 times a week?: No Do you season food with salt, seasoning salt, or garlic salt?: Yes Do you used canned, boxed, frozen meals, or soups, seasoning packets?: No Total Score:: 3 Exercise - 30-day Assessment Physician Prescribed Exercise Modalities: Treadmill, Schwinn Airdyne AD-7 and SciFit Stepper Exercise - 60-day Assessment Physician Prescribed Exercise Modalities: Treadmill, Schwinn Airdyne AD-7 and SciFit Stepper Exercise - 90-day Assessment Physician Prescribed Exercise Modalities: Treadmill, Schwinn Airdyne AD-7 and SciFit Stepper Exercise - Final/Discharge Physician Prescribed Exercise Modalities: Treadmill, Schwinn Airdyne AD-7 and SciFit Stepper Frequency: 3x/week for 12 weeks [36 sessions] Intensity: 60-80% of age predicted maximum heart rate reserve Current METSs:: 3.0 Target Heart Rate:: 99-129 Nutrition - 30-Day Assessment Weight Mgt (Other Care) Height: 5 ft 8 in Weight:: 198 lb BMI: 30.1 Nutrition - 60-Day Assessment Weight Mgt (Other Care) Height: 5 ft 8 in Weight:: 198 lb BMI: 30.1 Core - 30-Day Assessment Visit Session #:: 0 (PRE-PROGRAM EVALUATION) Core - Final Assessment Hypertension Resting Blood Pressure:: 152/78 [place] [employer] Hypertension Guidelines Core - 60-Day Assessment Hypertension Resting Blood Pressure:: 152/78 [place] [employer] Hypertension Guidelines Psychosocial - 30-Day Assess Target Goals Target Goals Referral to Behavioral Health PS - Interventions: Yes: Attend Stress Management Classes and No: Referral to Behavioral Health if PHQ-9 score >9:, No: Referral to [facility] and No: Referral to Physician if PHQ-9 if score is 5-9: Psychosocial - 60-Day Assess Target Goals Target Goals Referral to Behavioral Health PS - Interventions: Yes: Attend Stress Management Classes and No: Referral to Behavioral Health if PHQ-9 score >9:, No: Referral to [facility] and No: Referral to Physician if PHQ-9 if score is 5-9: Psychosocial - 90-Day Assess Target Goals Target Goals Referral to Behavioral Health PS - Interventions: Yes: Attend Stress Management Classes and No: Referral to Behavioral Health if PHQ-9 score >9:, No: Referral to [facility] and No: Referral to Physician if PHQ-9 if score is 5-9: Psychosocial - Final Assessmen Target Goals Target Goals Referral to Behavioral Health PS - Interventions: Yes: Attend Stress Management Classes and No: Referral to Behavioral Health if PHQ-9 score >9:, No: Referral to [facility] and No: Referral to Physician if PHQ-9 if score is 5-9: Nutrition - 90-Day Assessment Weight Mgt (Other Care) Height: 5 ft 8 in Weight:: 198 lb BMI: 30.1 Nutrition - Final Assessment Program Goals Patient has diagnosis of Hyperlipidemia (ICD E78)?: Yes Weight Mgt (Other Care) Height: 5 ft 8 in Weight:: 198 lb BMI: 30.1
[2023-10-12 08:24] VITALS: BP 152/78; BMI 30.1
[2023-10-12 08:32] VITALS: BP 152/78; PULSE 58; RESP 14; TEMP 36.5; O2SAT 96; BMI 30.1
== END | disposition home or self-care (01) ==
DX: I10 Essential (primary) hypertension (principal)

== ENCOUNTER 2023-10-19 06:30 | Outpatient (RCR) | payer MEDICARE, OTHER, SELFPAY ==
[2023-10-12 08:24] VITALS: BMI 30.1
== END 2023-10-21 23:59 ==
LOC: CR 06:30
DX: Z95.4 Presence of other heart-valve replacement (principal)
CPT/HCPCS: 93798

== ENCOUNTER 2023-11-21 06:30 | Outpatient (RCR) | payer MEDICARE, OTHER, SELFPAY ==
[2023-10-12 08:24] VITALS: BMI 30.1
--- NOTE | 2023-11-09 09:34 | PCM.CR.ITP ---
Exercise - Initial Assessment Visit Session #:: 12 Physician Prescribed Exercise Modalities: Treadmill, Schwinn Airdyne AD-7 and SciFit Stepper Nutrition - Initial Assessment Weight Mgt (Other Care) Height: 5 ft 8 in Weight:: 198 lb BMI: 30.1 Psychosocial - Initial Assess Target Goals Target Goals Patient Health Questionnaire PHQ-9 Screening 30-Day Re-eval Assessment: 1. Little interest or pleasure in doing things: Not at all 2. Feeling down, depressed, or hopeless: Not at all 3. Trouble falling or staying asleep, or sleeping too much: Not at all 4. Feeling tired or having little energy: Not at all 5. Poor appetite or overeating: Not at all 6. Feeling bad about yourself -- or that you are a failure or have let yourself or your family down: Not at all 7. Trouble concentrating on things, such as reading the newspaper or watching television: Not at all 8. Moving or speaking so slowly that other people could have noticed. Or the opposite - being so fidgety or restless that you have been moving around a lot more than usual: Not at all 9. Thoughts that you would be better off , or of hurting yourself in some way: Not at all How difficult have these problems made it for you to do your work, take care of things at home, or get along with other people?: Not difficult at all Total Score: 0 Self-Efficacy 6-Item Scale 30-Day Re-eval Assessment: We would like to know how confident you are in doing certain activities. Please select your confidence level for: Fatigue Select Number: 9 Physical Discomfort or Pain Select Number: 9 Emotional Distress Select Number: 10 Other Symptoms or Health Problems Select Number: 9 Different Tasks and Activities Select Number: 10 Medication Select Number: 10 Total Score:: 9 Nutrition Survey Nutrition Survey Instructions Scoring Instructions Exercise - 30-day Assessment Visit Date of Eval: 11/09/23 Session #:: 12 Physician Prescribed Exercise Modalities: Treadmill, Schwinn Airdyne AD-7 and SciFit Stepper Frequency: 3x/week for 12 weeks [36 sessions] Intensity: 60-80% of age predicted maximum heart rate reserve Duration: 30 - 45 minutes Current METSs:: 5.5 Target Heart Rate:: 99-129 Current RPE:: 12 Maximum Excercise HR:: 103 Resting Blood Pressure: 150/90 Maximum Exercise Blood Pressure: 168/86 EKG Type: NSR to ST w/BBB, inverted Twave and rare PAC Outcomes & Goals Goals:: Verbalizes understanding of THR, RPE & goal METS by session 6, Documents in home exercise log/reports 30 min aerobic 5 day/wk by DC, Demonstrates accurate pulse taking by DC and Other additional outcome/goals: see below Intervention & Plan Exercise Program Goals: Instruct on personal THR & RPE, Instruct on MET level & personal MET goal, Show patient to take own pulse /validate performance until accurate, Instruct on home exercise and Other additional plan/int 30-day Reassessments 30 day Reassessments:: Progressing Reassessment Notes & Comments:: RPE explained Physical Activity Home Exercise Physical Activity - Home Exercise: Safe Exercise, Warm-up, Self-monitoring, Cool-Down, Home Exercise > 30 min Daily and Sitting Time <3 hours/daily Outcomes & Goals Outcomes/Goals: Demonstrates correct Warm-up/exercise Cool-Down (S3) if = 2.5 METs, Verbalizes symptoms of exercise intolerance by Session 3 (S3), Demonstrate safe equipment use (S3) & follows exercise prescrition (6) and Other: See below Intervention & Plan Plan/Intervention: Instruct warm-up & cool-down if exercising at > 2 METs, Instruct on symptoms of exercise intolerance & actions to take, Instruct & monitor on saf, Assess intial functional capacity & safety risk and Other See below 30-day Reassessments 30 day Reassessments:: Progressing Reassessment Notes & Comments:: warm up encouraged Exercise - 60-day Assessment Physician Prescribed Exercise Modalities: Treadmill, Schwinn Airdyne AD-7 and SciFit Stepper Exercise - 90-day Assessment Physician Prescribed Exercise Modalities: Treadmill, Schwinn Airdyne AD-7 and SciFit Stepper Exercise - Final/Discharge Physician Prescribed Exercise Modalities: Treadmill, Schwinn Airdyne AD-7 and SciFit Stepper Nutrition - 30-Day Assessment Program Goals Nutrition Program Goals Patient has diagnosis of Hyperlipidemia (ICD E78)?: Yes Visit Date of Eval: 11/09/23 Session #:: 12 Cholesterol/Lipids (Other Core Measures) Determine presence & major risk factors that modify LDL goal: Hypertension or hypertensive medication, Low HDL cholesterol <40 mg/dL*, Family history of premature CHD in Male < 55 years: female <65 yearsFa and Age men > 45 years; women >/= 55 years Outcomes/Goals: Pt IDs own risk factors & lifestyle modifications by Session 10, Verbalizes symptoms of angina & response by session 3., Pt independently manages and Other Additional Outcomes/Goals: Intervention/Plan: Advocate for lipid panel cholesterol medication if applicable, Instruct on personal lipid levels & lipid goals/NCEP guidelines, Instruct on cholesterol and Other additional plan/int 30-day Reassessments:: Progressing Reassessment Notes & Comments:: pt to attend nutrition class Diabetes (Other Core Measures) Diabetes Type: Not Applicable Insulin dependent injection/pump?: Yes Non-Insulin Dependent?: Yes Do you monitor your blood sugar at home?: Yes Referral to Diabetic Clinic:: Yes Outcomes/Goals:: Able to state symptoms of, Able to state, Able to state and Other additional Intervention/Plan:: Instruct on, Refer to, Instruct on and Other 30-day Reassessments:: Progressing Reassessment Notes & Comments:: pt is doing well Weight Mgt (Other Care) Height: 5 ft 8 in Weight:: 198 lb BMI: 30.1 Diagnosis Overweight/Obesity BMI> 30% ICD-10 E66: Yes Diagnosis High BMI/Morbid Obesity BMI> 35% ICD-10 Z68: No Outcomes/Goals: Pt sets, maintains & shows weight loss goal & trend during rehab and Other additional outcomes/goals Intervention/Plan: Instruct on ideal BMI & set weight loss goal w/patient, Assist pt to ID & incorporate diet changes for weight loss by S9, Refer to Structured Weight Loss program as appropriate, Encourage goal of using 250-300dcal per session for weight loss and Other additional plan/interventions 30 day Reassessments:: Progressing Reassessment Notes & Comments:: pt to attend nutrition class Healthy Eating Habits Will attend diet classes:: Yes Outcomes/Goals:: Consume diet rich in vegs,fruits,whole grain/high fiber,fish,lean meat, Limit sat/trans fats,cholesterol & added salts & sugars and Other additional outcome/goals: Intervention/Plan:: Assess current eating habits and Other Additional plan/interventions 30-day Reassessments:: Progressing Reassessment Notes & Comments:: pt to attend nutrition class Nutrition - 60-Day Assessment Weight Mgt (Other Care) Height: 5 ft 8 in Weight:: 198 lb BMI: 30.1 Core - 30-Day Assessment Visit Date of Eval: 11/09/23 Session #:: 12 Medication Compliance Preventative Medication(s):: Aspirin, Ticagrelor/P2Y12 inhibitor, Statin/lipid and Beta prabha H/O mental health issues: depression, anxiety, or addiction?: No Doesn?t believe in the benefits of treatment?: No Believes medications are unnecessary or harmful?: No Has a concern about medication side effects?: No Expresses concern over the cost of medications?: No Outcomes/Goals: Verbalizes medications,desired effect & common side effects @ DC, Pt self-reports following medication regimen, Keeps card in wallet w/medications listed by DC and Other additional outcome/goals: Interventions/plans: Instruct on medication effects & side effects, Review medication list w/patient every two weeks, Instruct importance of taking meds as ordered & assist problem solving and Other additional 30-day Reassessments:: Progressing Reassessment Notes & Comments:: 10/30/23 5 mg lisinopril added Tobacco Use Tobacco Use: Non-smoker Hypertension Hypertension Diagnosis:: Hypertension ICD-10 I10 Resting Blood Pressure:: 150/90 [place] [employer] Hypertension Guidelines Peak Exercise Blood Pressure:: 168/86 Outcomes/Goals: Able to verbalize/achieve optimal blood pressure <130/80, Incorporates diet changes & exercise for blood pressure control by DC and Other additional outcomes/goals Interventions/plan: Instruct on optimal blood pressure, hypertension & medications, Instruct on effects of sodium, alcohol, stress, exercise &hypertension and Other additional plan/interventions 30 day Reassessments:: Progressing Reassessment Notes & Comments:: 10/30/23 5 mg lisinopril added Tobacco Cessation Referral Smoking Cessation Referral:: No Individual Education/Counseling:: No Education Schedule Given:: Yes Psychosocial - 30-Day Assess VIsit Date of Eval: 11/09/23 Session #:: 12 History of previous Mental disease:: No Target Goals Target Goals Outcomes/Goals: See list Psychosocial Outcomes/Goals:: ID's personal stressors & 2 strategies to manage stress by discharge and Other Additional outcome/goals: Intervention/Plan: See List Interventions/Plan:: Assess stressors,coping strategies & signs of derpression on admission, Instruct/assist pt to develop coping & personal stress Mgt strategies, Refer to Behavioral Health if appropriate, Refer to Physician if appropriate, Instruct patient to recognize signs & symptoms of depression, Instruct patient to recog and Other additional plan/intervention 30-day Reassessments: 30 day Reassessments:: Met Psychosocial - 60-Day Assess Target Goals Target Goals Outcomes/Goals: See list Psychosocial Outcomes/Goals:: ID's personal stressors & 2 strategies to manage stress by discharge and Other Additional outcome/goals: Psychosocial - 90-Day Assess Target Goals Target Goals Psychosocial - Final Assessmen Target Goals Target Goals Nutrition - 90-Day Assessment Weight Mgt (Other Care) Height: 5 ft 8 in Weight:: 198 lb BMI: 30.1 Nutrition - Final Assessment Weight Mgt (Other Care) Height: 5 ft 8 in Weight:: 198 lb BMI: 30.1
[2023-11-09 09:39] VITALS: BP 150/90
[2023-11-09 09:46] VITALS: BP 150/90; BMI 30.1
--- NOTE | 2023-12-12 08:04 | EKG12_ITS ---
Test Reason : ARRHYTHMIA Blood Pressure : / mmHG Vent. Rate : 069 BPM Atrial Rate : 069 BPM P-R Int : 212 ms QRS Dur : 170 ms QT Int : 462 ms P-R-T Axes : 074 -34 105 degrees QTc Int : 495 ms Sinus rhythm with marked sinus arrhythmia with 1st degree A-V block Left axis deviation Left bundle branch block Abnormal ECG No previous ECGs available Confirmed by RANDY JARRELL, SANA ([id number]), department editor REY LEDESMA ([id number]) on 01/29/2024 2:32:32 PM Referred By: GAYLA VELAZQUEZ Confirmed By:SANA PADILLA MD
--- NOTE | 2023-12-12 08:08 | EKG12_ITS ---
Test Reason : ARRHYTHMIA Blood Pressure : / mmHG Vent. Rate : 063 BPM Atrial Rate : 063 BPM P-R Int : 206 ms QRS Dur : 168 ms QT Int : 452 ms P-R-T Axes : 068 -42 107 degrees QTc Int : 462 ms Sinus rhythm with marked sinus arrhythmia Left axis deviation Left bundle branch block Abnormal ECG When compared with ECG of 12-DEC-2023 08:04, MANUAL COMPARISON REQUIRED, DATA IS UNCONFIRMED Confirmed by RANDY JARRELL, SANA ([id number]), industrial editor REY LEDESMA ([id number]) on 01/29/2024 2:33:01 PM Referred By: GAYLA VELAZQUEZ Confirmed By:SANA PADILLA MD
== END 2023-11-21 23:59 ==
LOC: CR 06:30
DX: Z95.4 Presence of other heart-valve replacement (principal)
CPT/HCPCS: 93798; 97802

== ENCOUNTER 2023-12-21 06:30 | Outpatient (RCR) | payer MEDICARE, OTHER, SELFPAY ==
[2023-11-09 09:46] VITALS: BMI 30.1
[2023-11-22 00:25] VITALS: BP 150/90
--- NOTE | 2023-12-10 11:15 | PCM.CR.ITP ---
Exercise - Initial Assessment Physician Prescribed Exercise Modalities: Treadmill, Schwinn Airdyne AD-7 and SciFit Stepper Nutrition - Initial Assessment Weight Mgt (Other Care) Height: 5 ft 8 in Weight:: 193 lb 8 oz BMI: 29.4 Psychosocial - Initial Assess Target Goals Target Goals Patient Health Questionnaire PHQ-9 Screening 60-Day Re-eval Assessment: 1. Little interest or pleasure in doing things: Not at all 2. Feeling down, depressed, or hopeless: Not at all 3. Trouble falling or staying asleep, or sleeping too much: Not at all 4. Feeling tired or having little energy: Not at all 5. Poor appetite or overeating: Not at all 6. Feeling bad about yourself -- or that you are a failure or have let yourself or your family down: Not at all 7. Trouble concentrating on things, such as reading the newspaper or watching television: Not at all 8. Moving or speaking so slowly that other people could have noticed. Or the opposite - being so fidgety or restless that you have been moving around a lot more than usual: Not at all 9. Thoughts that you would be better off , or of hurting yourself in some way: Not at all How difficult have these problems made it for you to do your work, take care of things at home, or get along with other people?: Not difficult at all Total Score: 0 Self-Efficacy 6-Item Scale 60-Day Re-eval Assessment: We would like to know how confident you are in doing certain activities. Please select your confidence level for: Fatigue Select Number: 9 Physical Discomfort or Pain Select Number: 9 Emotional Distress Select Number: 10 Other Symptoms or Health Problems Select Number: 9 Different Tasks and Activities Select Number: 10 Medication Select Number: 10 Total Score:: 9 Nutrition Survey Nutrition Survey Instructions Scoring Instructions Exercise - 30-day Assessment Physician Prescribed Exercise Modalities: Treadmill, Schwinn Airdyne AD-7 and SciFit Stepper Exercise - 60-day Assessment Visit Date of Eval: 12/10/23 Session #:: 24 Physician Prescribed Exercise Modalities: Treadmill, Schwinn Airdyne AD-7 and SciFit Stepper Frequency: 3x/week for 12 weeks [36 sessions] Intensity: 60-80% of age predicted maximum heart rate reserve Duration: 30 - 45 minutes Current METSs:: 6 Target Heart Rate:: 99-129 Current RPE:: 12 Maximum Excercise HR:: 107 Resting Blood Pressure: 148/78 Maximum Exercise Blood Pressure: 132/80 EKG Type: NSR to ST with BBB, inverted T wave and rare PAC and PVC Outcomes & Goals Goals:: Verbalizes understanding of THR, RPE & goal METS by session 6, Documents in home exercise log/reports 30 min aerobic 5 day/wk by DC, Demonstrates accurate pulse taking by DC and Other additional outcome/goals: see below Intervention & Plan Exercise Program Goals: Instruct on personal THR & RPE, Instruct on MET level & personal MET goal, Show patient to take own pulse /validate performance until accurate, Instruct on home exercise and Other additional plan/int 30-day Reassessments 30 day Reassessments:: Progressing Reassessment Notes & Comments:: THR explained Physical Activity Home Exercise Physical Activity - Home Exercise: Safe Exercise, Warm-up, Self-monitoring, Cool-Down, Home Exercise > 30 min Daily and Sitting Time <3 hours/daily Outcomes & Goals Outcomes/Goals: Demonstrates correct Warm-up/exercise Cool-Down (S3) if = 2.5 METs, Verbalizes symptoms of exercise intolerance by Session 3 (S3), Demonstrate safe equipment use (S3) & follows exercise prescrition (6) and Other: See below Intervention & Plan Plan/Intervention: Instruct warm-up & cool-down if exercising at > 2 METs, Instruct on symptoms of exercise intolerance & actions to take, Instruct & monitor on saf, Assess intial functional capacity & safety risk and Other See below 30-day Reassessments 30 day Reassessments:: Progressing Reassessment Notes & Comments:: cool down explained Exercise - 90-day Assessment Physician Prescribed Exercise Modalities: Treadmill, Schwinn Airdyne AD-7 and SciFit Stepper Exercise - Final/Discharge Physician Prescribed Exercise Modalities: Treadmill, Schwinn Airdyne AD-7 and SciFit Stepper Nutrition - 30-Day Assessment Weight Mgt (Other Care) Height: 5 ft 8 in Weight:: 193 lb 8 oz BMI: 29.4 Nutrition - 60-Day Assessment Program Goals Nutrition Program Goals Patient has diagnosis of Hyperlipidemia (ICD E78)?: Yes Visit Date of Eval: 12/10/23 Session #:: 24 Cholesterol/Lipids (Other Core Measures) Determine presence & major risk factors that modify LDL goal: Hypertension or hypertensive medication, Low HDL cholesterol <40 mg/dL*, Family history of premature CHD in Male < 55 years: female <65 yearsFa and Age men > 45 years; women >/= 55 years Outcomes/Goals: Pt IDs own risk factors & lifestyle modifications by Session 10, Verbalizes symptoms of angina & response by session 3., Pt independently manages and Other Additional Outcomes/Goals: Intervention/Plan: Advocate for lipid panel cholesterol medication if applicable, Instruct on personal lipid levels & lipid goals/NCEP guidelines, Instruct on cholesterol and Other additional plan/int 30-day Reassessments:: Progressing Reassessment Notes & Comments:: pt met with dietitian 11/13 Diabetes (Other Core Measures) Diabetes Type: Diagnosis Type II ICD-10 E11 Insulin dependent injection/pump?: Yes Non-Insulin Dependent?: Yes Do you monitor your blood sugar at home?: Yes Outcomes/Goals:: Able to state symptoms of, Able to state, Able to state and Other additional Intervention/Plan:: Instruct on, Refer to, Instruct on and Other 30-day Reassessments:: Progressing Reassessment Notes & Comments:: pt met with dietitian Weight Mgt (Other Care) Height: 5 ft 8 in Weight:: 193 lb 8 oz BMI: 29.4 Diagnosis Overweight/Obesity BMI> 30% ICD-10 E66: No Diagnosis High BMI/Morbid Obesity BMI> 35% ICD-10 Z68: No Outcomes/Goals: Pt sets, maintains & shows weight loss goal & trend during rehab and Other additional outcomes/goals Intervention/Plan: Instruct on ideal BMI & set weight loss goal w/patient, Assist pt to ID & incorporate diet changes for weight loss by S9, Refer to Structured Weight Loss program as appropriate, Encourage goal of using 250-300dcal per session for weight loss and Other additional plan/interventions 30 day Reassessments:: Progressing Reassessment Notes & Comments:: pt met with dietitian Healthy Eating Habits Will attend diet classes:: Yes Outcomes/Goals:: Consume diet rich in vegs,fruits,whole grain/high fiber,fish,lean meat, Limit sat/trans fats,cholesterol & added salts & sugars and Other additional outcome/goals: Intervention/Plan:: Assess current eating habits and Other Additional plan/interventions 30-day Reassessments:: Progressing Reassessment Notes & Comments:: pt met with dietitian Education Gave educational materials for:: Signs & symptoms of hypoglycemia, Signs & symptoms of hyperglycemia, Relate diabetes to coronary artery disease and Healthy eating Core - 60-Day Assessment Visit Date of Eval: 12/10/23 Session #:: 24 Medication Compliance Preventative Medication(s):: Aspirin, Ticagrelor/P2Y12 inhibitor, Statin/lipid and Beta prabha H/O mental health issues: depression, anxiety, or addiction?: No Doesn?t believe in the benefits of treatment?: No Believes medications are unnecessary or harmful?: No Has a concern about medication side effects?: No Expresses concern over the cost of medications?: No Outcomes/Goals: Verbalizes medications,desired effect & common side effects @ DC, Pt self-reports following medication regimen, Keeps card in wallet w/medications listed by DC and Other additional outcome/goals: Interventions/plans: Instruct on medication effects & side effects, Review medication list w/patient every two weeks, Instruct importance of taking meds as ordered & assist problem solving and Other additional 30-day Reassessments:: Progressing Reassessment Notes & Comments:: 11/14/23 lisinopril increased to 40 mg daily Tobacco Use Tobacco Use: Non-smoker Hypertension Hypertension Diagnosis:: Hypertension ICD-10 I10 Resting Blood Pressure:: 148/78 [place] [employer] Hypertension Guidelines Peak Exercise Blood Pressure:: 132/80 Outcomes/Goals: Able to verbalize/achieve optimal blood pressure <130/80, Incorporates diet changes & exercise for blood pressure control by DC and Other additional outcomes/goals Interventions/plan: Instruct on optimal blood pressure, hypertension & medications, Instruct on effects of sodium, alcohol, stress, exercise &hypertension and Other additional plan/interventions 30 day Reassessments:: Progressing Reassessment Notes & Comments:: 11/14/23 lisinopril increased to 40 mg daily Tobacco Cessation Referral Smoking Cessation Referral:: No Individual Education/Counseling:: No Education Schedule Given:: Yes Psychosocial - 30-Day Assess Target Goals Target Goals Outcomes/Goals: See list Psychosocial Outcomes/Goals:: ID's personal stressors & 2 strategies to manage stress by discharge and Other Additional outcome/goals: Psychosocial - 60-Day Assess VIsit Date of Eval: 12/10/23 Session #:: 24 History of previous Mental disease:: No Target Goals Target Goals Outcomes/Goals: See list Psychosocial Outcomes/Goals:: ID's personal stressors & 2 strategies to manage stress by discharge and Other Additional outcome/goals: Intervention/Plan: See List Interventions/Plan:: Assess stressors,coping strategies & signs of derpression on admission, Instruct/assist pt to develop coping & personal stress Mgt strategies, Refer to Behavioral Health if appropriate, Refer to Physician if appropriate, Instruct patient to recognize signs & symptoms of depression, Instruct patient to recog and Other additional plan/intervention 30-day Reassessments: 30 day Reassessments:: Met Psychosocial - 90-Day Assess Target Goals Target Goals Psychosocial - Final Assessmen Target Goals Target Goals Nutrition - 90-Day Assessment Weight Mgt (Other Care) Height: 5 ft 8 in Weight:: 193 lb 8 oz BMI: 29.4 Nutrition - Final Assessment Weight Mgt (Other Care) Height: 5 ft 8 in Weight:: 193 lb 8 oz BMI: 29.4
[2023-12-10 11:19] VITALS: BP 148/78
[2023-12-10 11:29] VITALS: BP 148/78; BMI 29.4
== END 2023-12-22 23:59 ==
LOC: CR 06:30
DX: Z95.4 Presence of other heart-valve replacement (principal)
CPT/HCPCS: 93798

== ENCOUNTER 2024-01-11 08:00 | Outpatient (RCR) | payer MEDICARE, OTHER, SELFPAY ==
[2023-12-10 11:29] VITALS: BMI 29.4
[2023-12-23 00:43] VITALS: BP 148/78; BP 150/90
--- NOTE | 2024-01-10 07:04 | PCM.CR.ITP ---
Exercise - Initial Assessment Physician Prescribed Exercise Modalities: Treadmill, Schwinn Airdyne AD-7 and SciFit Pro-II Ergometer Nutrition - Initial Assessment Weight Mgt (Other Care) Height: 5 ft 8 in Weight:: 194 lb 8 oz BMI: 29.5 Psychosocial - Initial Assess Target Goals Target Goals Referral to Behavioral Health PS - Interventions: Yes: Referral to Behavioral Health if PHQ-9 score >9:, Yes: Referral to [facility], Yes: Referral to Physician if PHQ-9 if score is 5-9: and Yes: Attend Stress Management Classes Patient Health Questionnaire PHQ-9 Screening 90-Day Re-eval Assessment: 1. Little interest or pleasure in doing things: Not at all 2. Feeling down, depressed, or hopeless: Not at all 3. Trouble falling or staying asleep, or sleeping too much: Not at all 4. Feeling tired or having little energy: Not at all 5. Poor appetite or overeating: Not at all 6. Feeling bad about yourself -- or that you are a failure or have let yourself or your family down: Not at all 7. Trouble concentrating on things, such as reading the newspaper or watching television: Not at all 8. Moving or speaking so slowly that other people could have noticed. Or the opposite - being so fidgety or restless that you have been moving around a lot more than usual: Not at all 9. Thoughts that you would be better off , or of hurting yourself in some way: Not at all How difficult have these problems made it for you to do your work, take care of things at home, or get along with other people?: Not difficult at all Total Score: 0 Self-Efficacy 6-Item Scale 90-Day Re-eval Assessment: We would like to know how confident you are in doing certain activities. Please select your confidence level for: Fatigue Select Number: 9 Physical Discomfort or Pain Select Number: 9 Emotional Distress Select Number: 10 Other Symptoms or Health Problems Select Number: 9 Different Tasks and Activities Select Number: 10 Medication Select Number: 10 Total Score:: 9 Nutrition Survey Nutrition Survey Instructions Scoring Instructions Exercise - 30-day Assessment Physician Prescribed Exercise Modalities: Treadmill, Schwinn Airdyne AD-7 and SciFit Pro-II Ergometer Exercise - 60-day Assessment Physician Prescribed Exercise Modalities: Treadmill, Schwinn Airdyne AD-7 and SciFit Pro-II Ergometer Exercise - 90-day Assessment Visit Date of Eval: 01/10/24 Session #:: 35 Physician Prescribed Exercise Modalities: Treadmill, [employer] Yogiyodyne AD-7 and SciFit Pro-II Ergometer Frequency: 3x/week for 12 weeks [36 sessions] Intensity: 60-80% of age predicted maximum heart rate reserve Duration: 30 - 45 minutes Current METSs:: 7.1 Target Heart Rate:: 99-129 Current RPE:: 12-13 Maximum Excercise HR:: 107 Resting Blood Pressure: 142/80 Maximum Exercise Blood Pressure: 160/82 EKG Type: NSR to ST with BBB, inverted Twave, no ectopy Outcomes & Goals Goals:: Verbalizes understanding of THR, RPE & goal METS by session 6, Documents in home exercise log/reports 30 min aerobic 5 day/wk by DC, Demonstrates accurate pulse taking by DC and Other additional outcome/goals: see below Intervention & Plan Exercise Program Goals: Instruct on personal THR & RPE, Instruct on MET level & personal MET goal, Show patient to take own pulse /validate performance until accurate, Instruct on home exercise and Other additional plan/int 30-day Reassessments 30 day Reassessments:: Met Reassessment Notes & Comments:: Jack has met his exercise goals Physical Activity Home Exercise Physical Activity - Home Exercise: Safe Exercise, Warm-up, Self-monitoring, Cool-Down, Home Exercise > 30 min Daily and Sitting Time <3 hours/daily Outcomes & Goals Outcomes/Goals: Demonstrates correct Warm-up/exercise Cool-Down (S3) if = 2.5 METs, Verbalizes symptoms of exercise intolerance by Session 3 (S3), Demonstrate safe equipment use (S3) & follows exercise prescrition (6) and Other: See below Intervention & Plan Plan/Intervention: Instruct warm-up & cool-down if exercising at > 2 METs, Instruct on symptoms of exercise intolerance & actions to take, Instruct & monitor on saf, Assess intial functional capacity & safety risk and Other See below 30-day Reassessments 30 day Reassessments:: Met Reassessment Notes & Comments:: Jack demonstrates understanding of warm up, cool down, and exercising safely Exercise - Final/Discharge Physician Prescribed Exercise Modalities: Treadmill, Schwinn Yogiyodyne AD-7 and SciFit Pro-II Ergometer Nutrition - 30-Day Assessment Weight Mgt (Other Care) Height: 5 ft 8 in Weight:: 194 lb 8 oz BMI: 29.5 Nutrition - 60-Day Assessment Weight Mgt (Other Care) Height: 5 ft 8 in Weight:: 194 lb 8 oz BMI: 29.5 Core - 30-Day Assessment Hypertension [place] [employer] Hypertension Guidelines Reassessment Notes & Comments:: Jack's resting BP's have greatly decreased while in [place] Core - Final Assessment Hypertension [place] [employer] Hypertension Guidelines Reassessment Notes & Comments:: Yareds resting BP's have greatly decreased while in [place] Core - 90 Day Assessment Visit Date of Eval: 01/10/24 Session #:: 35 Medication Compliance Preventative Medication(s):: Aspirin, Ticagrelor/P2Y12 inhibitor, Statin/lipid and Beta prabha H/O mental health issues: depression, anxiety, or addiction?: No Doesn?t believe in the benefits of treatment?: No Believes medications are unnecessary or harmful?: No Has a concern about medication side effects?: No Expresses concern over the cost of medications?: No Outcomes/Goals: Verbalizes medications,desired effect & common side effects @ DC, Pt self-reports following medication regimen, Keeps card in wallet w/medications listed by DC and Other additional outcome/goals: Interventions/plans: Instruct on medication effects & side effects, Review medication list w/patient every two weeks, Instruct importance of taking meds as ordered & assist problem solving and Other additional 30-day Reassessments:: Met Reassessment Notes & Comments:: 12/13 verapamil d/c due to sinus arrhythmia. Tobacco Use Tobacco Use: Non-smoker 30-day Reassessments:: Met Hypertension Hypertension Diagnosis:: Hypertension ICD-10 I10 Resting Blood Pressure:: 142/80 [place] [employer] Hypertension Guidelines Peak Exercise Blood Pressure:: 160/82 Outcomes/Goals: Able to verbalize/achieve optimal blood pressure <130/80, Incorporates diet changes & exercise for blood pressure control by DC and Other additional outcomes/goals Interventions/plan: Instruct on optimal blood pressure, hypertension & medications, Instruct on effects of sodium, alcohol, stress, exercise &hypertension and Other additional plan/interventions 30 day Reassessments:: Met Reassessment Notes & Comments:: Alanis resting BP's have greatly decreased while in [place] Tobacco Cessation Referral Smoking Cessation Referral:: No Education Schedule Given:: Yes Psychosocial - 30-Day Assess Target Goals Target Goals Referral to Behavioral Health PS - Interventions: Yes: Referral to Behavioral Health if PHQ-9 score >9:, Yes: Referral to [facility], Yes: Referral to Physician if PHQ-9 if score is 5-9: and Yes: Attend Stress Management Classes Psychosocial - 60-Day Assess Target Goals Target Goals Referral to Behavioral Health PS - Interventions: Yes: Referral to Behavioral Health if PHQ-9 score >9:, Yes: Referral to [facility], Yes: Referral to Physician if PHQ-9 if score is 5-9: and Yes: Attend Stress Management Classes Psychosocial - 90-Day Assess VIsit Date of Eval: 01/10/24 Session #:: 35 History of previous Mental disease:: No Target Goals Target Goals Psychosocial Test Tool Used:: [employer] QOL Cardiac and PHQ-9 Questionnaire phq-9 Severity Referral to Behavioral Health PS - Interventions: Yes: Referral to Behavioral Health if PHQ-9 score >9:, Yes: Referral to [facility], Yes: Referral to Physician if PHQ-9 if score is 5-9: and Yes: Attend Stress Management Classes Outcomes/Goals: See list Psychosocial Outcomes/Goals:: ID's personal stressors & 2 strategies to manage stress by discharge and Other Additional outcome/goals: Intervention/Plan: See List Interventions/Plan:: Assess stressors,coping strategies & signs of derpression on admission, Instruct/assist pt to develop coping & personal stress Mgt strategies, Refer to Behavioral Health if appropriate, Refer to Physician if appropriate, Instruct patient to recognize signs & symptoms of depression, Instruct patient to recog and Other additional plan/intervention 30-day Reassessments: 30 day Reassessments:: Met Reassessment Notes & Comments:: Jack denies any psychosocial issues Psychosocial - Final Assessmen Target Goals Target Goals Referral to Behavioral Health PS - Interventions: Yes: Referral to Behavioral Health if PHQ-9 score >9:, Yes: Referral to [facility], Yes: Referral to Physician if PHQ-9 if score is 5-9: and Yes: Attend Stress Management Classes Nutrition - 90-Day Assessment Program Goals Nutrition Program Goals Patient has diagnosis of Hyperlipidemia (ICD E78)?: Yes Visit Date of Eval: 01/10/24 Session #:: 35 Cholesterol/Lipids (Other Core Measures) Determine presence & major risk factors that modify LDL goal: Hypertension or hypertensive medication, Low HDL cholesterol <40 mg/dL*, Family history of premature CHD in Male < 55 years: female <65 yearsFa and Age men > 45 years; women >/= 55 years Outcomes/Goals: Pt IDs own risk factors & lifestyle modifications by Session 10, Verbalizes symptoms of angina & response by session 3., Pt independently manages and Other Additional Outcomes/Goals: Intervention/Plan: Advocate for lipid panel cholesterol medication if applicable, Instruct on personal lipid levels & lipid goals/NCEP guidelines, Instruct on cholesterol and Other additional plan/int 30-day Reassessments:: Met Reassessment Notes & Comments:: Jack has met with a dietitian for counseling and is following guidelines for heart healthy eating Diabetes (Other Core Measures) Diabetes Type: Diagnosis Type II ICD-10 E11 Insulin dependent injection/pump?: Yes Non-Insulin Dependent?: Yes Do you monitor your blood sugar at home?: Yes Outcomes/Goals:: Able to state symptoms of, Able to state, Able to state and Other additional Intervention/Plan:: Instruct on, Refer to, Instruct on and Other 30-day Reassessments:: Met Reassessment Notes & Comments:: Jack has met with a dietitian for counseling and is following guidelines for heart healthy eating Weight Mgt (Other Care) Height: 5 ft 8 in Weight:: 194 lb 8 oz BMI: 29.5 Diagnosis Overweight/Obesity BMI> 30% ICD-10 E66: No Diagnosis High BMI/Morbid Obesity BMI> 35% ICD-10 Z68: No Outcomes/Goals: Pt sets, maintains & shows weight loss goal & trend during rehab and Other additional outcomes/goals Intervention/Plan: Instruct on ideal BMI & set weight loss goal w/patient, Assist pt to ID & incorporate diet changes for weight loss by S9, Refer to Structured Weight Loss program as appropriate, Encourage goal of using 250-300dcal per session for weight loss and Other additional plan/interventions 30 day Reassessments:: Met Reassessment Notes & Comments:: Jack has met with a dietitian for counseling and is following guidelines for heart healthy eating. Jack has lost several lbs while in [place] Healthy Eating Habits Will attend diet classes:: Yes Outcomes/Goals:: Consume diet rich in vegs,fruits,whole grain/high fiber,fish,lean meat, Limit sat/trans fats,cholesterol & added salts & sugars and Other additional outcome/goals: Intervention/Plan:: Assess current eating habits and Other Additional plan/interventions 30-day Reassessments:: Not Met Reassessment Notes & Comments:: Jack has met with a dietitian for counseling and is following guidelines for heart healthy eating Education Gave educational materials for:: Signs & symptoms of hypoglycemia, Signs & symptoms of hyperglycemia, Relate diabetes to coronary artery disease and Healthy eating Nutrition - Final Assessment Weight Mgt (Other Care) Height: 5 ft 8 in Weight:: 194 lb 8 oz BMI: 29.5
[2024-01-10 07:18] VITALS: BP 142/80; BMI 29.5
== END 2024-01-21 23:59 ==
LOC: CR 08:00
DX: Z95.4 Presence of other heart-valve replacement (principal)
CPT/HCPCS: 93798

== ENCOUNTER → 2025-03-27 | Outpatient (CLI) | payer MEDICARE, OTHER, SELFPAY ==
[2024-02-06 06:50] VITALS: BMI 29.5
--- NOTE | 2025-03-27 07:00 | EKG12_ITS ---
Test Reason : PALP Blood Pressure : */* mmHG Vent. Rate : 90 BPM Atrial Rate : 90 BPM P-R Int : 206 ms QRS Dur : 162 ms QT Int : 412 ms P-R-T Axes : 79 29 97 degrees QTcB Int : 504 ms Normal sinus rhythm Left bundle branch block Abnormal ECG Confirmed by RANDY JARRELL, SANA ([id number]), loan expeditor REY LEDESMA ([id number]) on 03/27/2025 10:58:32 AM Referred By: Candis Valdez Confirmed By: SANA PADILLA MD
--- OUTSIDE RECORDS SUMMARY | 2025-03-27 07:00 | XMS RPT_ITS | CCD ---
Author Organization [facility] Team Providers Care Russet Repairer Name Role Phone Vel, Qarab Wali Unavailable Unavailable Vel, Qarab Awli Unavailable Unavailable UNKNOWN, PCP Unavailable Unavailable UNKNOWN, PCP Unavailable Unavailable Nancy Saavedra Unavailable Unavailable UNKNOWN, PCP Unavailable Unavailable UNKNOWN, PCP Unavailable Unavailable Vel, Qarab Wali Unavailable Unavailable UNKNOWN, PCP Unavailable Unavailable eDnis Rivero MD Primary Care Provider Paramjit Peterson MD Unavailable Wero Geller Unavailable Burke Barron DO Unavailable [facility], [place] Unavailable Denis Rivero MD Primary Care Provider Paramjit Peterson MD Unavailable Wero Geller Unavailable Burke Barron DO Unavailable [facility], [place] Unavailable Noe Devlin Unavailable Denis Rivero MD Primary Care Provider Wero Geller Unavailable [facility], [place] Unavailable Noe Devlin Unavailable Denis Rivero MD Primary Care Provider Paramjit Peterson MD Unavailable Wero Geller Unavailable [phone] Burke Barron DO Unavailable [facility], [place] Unavailable ClausNoe Denis Unavailable Burke Barron DO Unavailable [facility], [place] Unavailable [phone] [facility], [place] Unavailable Arian Burke Unavailable Robert Ferrer MD Unavailable [phone] [place] [employer].ROUGHENER, Gisel Quinones Unavailable Mat JARRELL, Denis Primary Care Provider [phone] PROVIDER, UNKNOWN Attending Unavailable KRUPDAVID, DENIS Primary Care Unavailable PROVIDER, UNKNOWN Attending Unavailable KRFABIAN, DENIS Primary Care Unavailable PROVIDER, UNKNOWN Referring Unavailable KRUPITZER, DENIS Primary Care Unavailable PROVIDER, UNKNOWN Referring Unavailable KRUPDAVID, DENIS Primary Care Unavailable KRUPITZER, DENIS Primary Care Unavailable TRANG FRANCO Attending Unavailable MICHAEL, NAREN GIBBS Attending Unavailable MICHAEL, NAREN GIBBS Referring Unavailable MICHAEL, NAREN GIBBS Primary Care Unavailable MICHAEL, NAREN GIBBS Primary Care Unavailable MICHAEL, NAREN GIBBS Attending Unavailable MICHAEL, NAREN GIBBS Referring Unavailable MICHAEL, NAREN GIBBS Attending Unavailable MICHAEL, NAREN GIBBS Referring Unavailable MICHAEL, NAREN GIBBS Primary Care Unavailable Ervin, David Attending Unavailable Ervin, David Referring Unavailable MICHAEL, NAREN GIBBS Primary Care Unavailable MICHAEL, NAREN GIBBS Attending Unavailable MICHAEL, NAREN GIBBS Referring Unavailable MICHAEL, NAREN GIBBS Referring Unavailable MICHAEL, NAREN GIBBS Attending Unavailable MICHAEL, RACHEAL Primary Care Unavailable MICHAEL, NAREN GIBBS Referring Unavailable MICHAEL, NAREN GIBBS Primary Care Unavailable MICHAEL, NAREN GIBBS Attending Unavailable MICHAEL, NAREN GIBBS Referring Unavailable MICHAEL, RACHEAL Primary Care Unavailable MICHAEL, RACHEAL Attending Unavailable Denis HOME PERFORMANCE LABORER.ROUGHENER, Rimma Unavailable Mat JARRELL, Denis Primary Care Provider [phone] Mat JARRELL, Denis Primary Care Provider RYANN MONTIEL Referring Unavailable KRCARLOSITZER, DENIS Primary Care Unavailable KRUPITZER, DENIS Referring Unavailable KRUPITZER, DENIS Primary Care Unavailable KRUPITZER, DENIS Referring Unavailable KRUPITZER, DENIS Primary Care Unavailable ANTOINETTE ALICEA Referring Unavailable KRUPITZER, DENIS Primary Care Unavailable KRUPITZER, DENIS Referring Unavailable KRUPITZER, DENIS Primary Care Unavailable ANTOINETTE ALICEA Referring Unavailable ANTOINETTE ALICEA Attending Unavailable KRUPITZER, DENIS Primary Care Unavailable JUN GONCALVES Attending Unavailabl e KRUPITZER, DENIS Primary Care Unavailable KRUPITZER, DENIS Primary Care Unavailable KRUPITZER, DENIS Referring Unavailable KRUPITZER, DENIS Primary Care Unavailable KRUPITZER, DENIS Attending Unavailable KRUPITZER, DENIS Referring Unavailable KRUPITZER, DENIS Primary Care Unavailable KRUPITZER, DENIS Referring Unavailable KRUPITZER, DENIS Primary Care Unavailable KRUPITZER, DENIS Referring Unavailable KRUPITZER, DENIS Primary Care Unavailable ANTOINETTE ALICEA Attending Unavailable KRUPITZER, DENIS Primary Care Unavailable KRUPITZER, DENIS Referring Unavailable KRUPITZER, DENIS Primary Care Unavailable KRUPITZER, DENIS Referring Unavailable KRUPITZER, DENIS Primary Care Unavailable RYANN MONTIEL Attending Unavailable MARJORIE LEE Attending Unavailable KRUPITZER, DENIS Primary Care Unavailable KRUPITZER, DENIS Referring Unavailable KRUPITZER, DENIS Referring Unavailable KRUPITZER, DENIS Primary Care Unavailable KRUPITZER, DENIS Attending Unavailable KRUPITZER, DENIS Primary Care Unavailable KRUPITZER, DENIS Referring Unavailable KRUPITZER, DENIS Primary Care Unavailable Allergies Allergy Classification Reported Allergen(s) Allergy Type Date of Onset Reaction(s) Facility (20 sources) Verapamil; Translations: [VERAPAMIL] Drug Allergy 02-28-2024 Other: See Comments [facility] Medications Current Medications Medication Drug Class(es) Dates Sig (Normalized) Sig (Original) acetaminophen 325 mg / oxyCODONE hydrochloride 5 mg oral tablet (1 source) Opioid Agonist Start: 09-04-2023 End: 09-07-2023 take 1 tablet by mouth every six hours as needed for pain oxyCODONE-acetami nophen (PERCOCET) 5-325 mg tablet Indications: S/P aortic valve replacement Take 1 tablet by mouth every 6 hours as needed for pain for up to 3 days. 12 tablet 0 09/04/2023 09/07/2023 Active aspirin 81 mg oral tablet (20 sources) Platelet Aggregation Inhibitor, Nonsteroidal Anti-inflammatory Drug Start: 10-02-2022 take 81 mg by mouth once daily Aspirin Active 81 MG PO DAILY October 02, 2022 12:00am Start: 08-27-2018 take 1 tablet by magalie th once daily aspirin, enteric coated (ECOTRIN LOW STRENGTH) 81 mg EC tablet Take 1 tablet by mouth once daily. 08/27/2018 Active Comment on above: Take 1 tablet by magalie th once daily. Blood Pressure Monitor (20 sources) Start: 02-14-2023 Blood Pressure Monitor Indications: Coronary artery disease involving [place] coronary artery of [place] heart without angina pectoris , Primary hypertension Use to monitor blood pressure 1 Each 02/14/2023 Active Start: 02-14-2023 Blood Pressure Monitor Indications: Coronary artery disease involving [place] coronary artery of [place] heart without angina pectoris , Primary hypertension Use to monitor blood pressure 1 Each 0 02/14/2023 Active Start: 01-29-2023 End: 02-14-2023 Blood Pressure Monitor Use t o monitor blood pressure 1 Each 0 01/29/2023 02/14/2023 Discontinued Start: 01-29-2023 Blood Pressure Monitor Use to monitor blood pressure 1 Each 0 01/29/2023 Active Start: 11-21-2019 End: 01-29-2023 Blood Pressure Monitor 1 Eac h one time a week. 1 Kit 0 11/21/2019 01/29/2023 Discontinued Start: 11-21-2019 Blood Pressure Monitor 1 Each one time a week. 1 Kit 0 11/21/2019 Active Comment on above: 1 Each one time a we ek. Use to monitor blood pressure Blood-Glucose Meter (20 sources) Start: 07-22-2024 Blood-Glucose Meter Use to check blood sugar 2 times per day 1 Each 07/22/2024 Active Start: 10-30-2023 End: 07-22-2024 Blood-Glucose Meter Use to c heck blood sugar 2 times per day 1 Each 10/30/2023 07/22/2024 Discontinued Start: 10-30-2023 Blood-Glucose Meter Use to check blood sugar 2 times per day 1 Each 10/30/2023 Active Start: 10-30-2023 Blood-Glucose Meter Use to check blood sugar 2 times per day 1 Each 0 10/30/2023 Active Start: 10-30-2023 End: 10-30-2023 Blood-Glucose Meter Use to c heck blood sugar daily 1 Each 0 10/30/2023 10/30/2023 Discontinued Start: 10-30-2023 Blood-Glucose Meter Use to check blood sugar daily 1 Each 0 10/30/2023 Active Blood-Glucose Meter,Continuo us (DEXCOM G6 GENERATOR ASSEMBLER) misc (8 sources) Start: 08-07-2022 End: 01-04-2023 Blood-Glucose Meter,Continuo us (DEXCOM G6 GENERATOR ASSEMBLER) misc Use to check blood sugar at least four (4) times daily. 1 Each 0 08/07/2022 01/04/2023 Discontinued Start: 08-07-2022 Blood-Glucose Meter,Continuous (DEXCOM G6 GENERATOR ASSEMBLER) misc Use to check blood sugar at least four (4) times daily. 1 Each 0 08/07/2022 Active Comment on above: Use to check blood s ugar at least four (4) times daily. Blood-Glucose Meter,Continuous (DEXCOM G7 GENERATOR ASSEMBLER) misc (20 sources) Start: 01-04-2023 Blood-Glucose Meter,Continuous (DEXCOM G7 GENERATOR ASSEMBLER) misc Indications: Type 2 diabetes mellitus with both eyes affected 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, with long-term current use of insulin (HCC) Use continuously to monitor glucose, IDDM, E 11.3293 01/04/2023 Active Start: 01-04-2023 Blood-Glucose Meter,Continuous (DEXCOM G7 GENERATOR ASSEMBLER) misc Indications: Type 2 diabetes mellitus with both eyes affected 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, with long-term current use of insulin (HCC) Use continuously to monitor glucose, IDDM, E 11.3293 0 01/04/2023 Active Start: 07-21-2022 Blood-Glucose Meter,Continuous (DEXCOM G7 GENERATOR ASSEMBLER) misc Use to check blood sugar at least four (4) times daily. 1 Each 0 07/21/2022 Active Comment on above: Use to check blood s ugar at least four (4) times daily. Use continuously to monitor glucose, IDDM, E 11.3293 Blood-Glucose Sensor (DEXCOM G6 SENSOR) yesenia (8 sources) Start: 08-07-2022 End: 01-04-2023 Blood-Glucose Sensor (DEXCOM G6 SENSOR) yesenia Apply new sensor every ten (10) days to abdomen. 9 Each 3 08/07/2022 01/04/2023 Discontinued Start: 08-07-2022 Blood-Glucose Sensor (DEXCOM G6 SENSOR) yesenia Apply new sensor every ten (10) days to abdomen. 9 Each 3 08/07/2022 Active Comment on above: Apply new sensor quinten ry ten (10) days to abdomen. Blood-Glucose Sensor (DEXCOM G7 SENSOR) yesenia (20 sources) Start: 06-27-2024 Blood-Glucose Sensor (DEXCOM G7 SENSOR) yesenia Indications: Type 2 diabetes mellitus with both eyes affected 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, with long-term current use of insulin (HCC) APPLY NEW SENSOR EVERY 10 DAYS 9 Each 4 06/27/2024 Active Start: 06-17-2024 End: 06-27-2024 Blood-Glucose Sensor (DEXCOM G7 SENSOR) yesenia Indications: Type 2 diabetes mellitus with both eyes affected 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, with long-term current use of insulin (HCC) APPLY NEW SENSOR EVERY 10 DAYS 9 Each 4 06/17/2024 06/27/2024 Discontinued Start: 06-17-2024 Blood-Glucose Sensor (DEXCOM G7 SENSOR) yesenia Indications: Type 2 diabetes mellitus with both eyes affected 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, with long-term current use of insulin (HCC) APPLY NEW SENSOR EVERY 10 DAYS 9 Each 06/17/2024 Active Start: 05-28-2024 End: 06-17-2024 Blood-Glucose Sensor (DEXCOM G7 SENSOR) yesenia Indications: Type 2 diabetes mellitus with both eyes affected 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, with long-term current use of insulin (HCC) APPLY NEW SENSOR EVERY 10 DAYS 9 Each 3 05/28/2024 06/17/2024 Discontinued Start: 05-28-2024 Blood-Glucose Sensor (DEXCOM G7 SENSOR) yesenia Indications: Type 2 diabetes mellitus with both eyes affected 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, with long-term current use of insulin (HCC) APPLY NEW SENSOR EVERY 10 DAYS 9 Each 3 05/28/2024 Active Start: 05-26-2024 End: 05-28-2024 Blood-Glucose Sensor (DEXCOM G7 SENSOR) yesenia Indications: Type 2 diabetes mellitus with both eyes affected 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, with long-term current use of insulin (HCC) APPLY NEW SENSOR EVERY 10 DAYS 9 Each 3 05/26/2024 05/28/2024 Discontinued Start: 05-26-2024 Blood-Glucose Sensor (DEXCOM G7 SENSOR) yesenia Indications: Type 2 diabetes mellitus with both eyes affected 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, with long-term current use of insulin (HCC) APPLY NEW SENSOR EVERY 10 DAYS 9 Each 3 05/26/2024 Active Start: 09-20-2023 End: 05-26-2024 Blood-Glucose Sensor (DEXCOM G7 SENSOR) yesenia Indications: Type 2 diabetes mellitus with both eyes affected 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, with long-term current use of insulin (HCC) APPLY NEW SENSOR EVERY 10 DAYS 9 Each 3 09/20/2023 05/26/2024 Discontinued Start: 09-20-2023 Blood-Glucose Sensor (DEXCOM G7 SENSOR) yesenia Indications: Type 2 diabetes mellitus with both eyes affected 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, with long-term current use of insulin (HCC) APPLY NEW SENSOR EVERY 10 DAYS 9 Each 09/20/2023 Active Start: 09-04-2023 End: 09-20-2023 Blood-Glucose Sensor (DEXCOM G7 SENSOR) yesenia Indications: Type 2 diabetes mellitus with both eyes affected 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, with long-term current use of insulin (HCC) Use one sensor every 10 days, IDDM, E 11.3293 9 Each 3 09/04/2023 09/20/2023 Discontinued Start: 09-04-2023 Blood-Glucose Sensor (DEXCOM G7 SENSOR) yesenia Indications: Type 2 diabetes mellitus with both eyes affected 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, with long-term current use of insulin (HCC) Use one sensor every 10 days, IDDM, E 11.3293 9 Each 09/04/2023 Active Start: 01-04-2023 End: 09-04-2023 Blood-Glucose Sensor (DEXCOM G7 SENSOR) yesenia Indications: Type 2 diabetes mellitus with both eyes affected 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, with long-term current use of insulin (HCC) Use one sensor every 10 days, IDDM, E 11.3293 0 01/04/2023 09/04/2023 Discontinued Start: 01-04-2023 Blood-Glucose Sensor (DEXCOM G7 SENSOR) yesenia Indications: Type 2 diabetes mellitus with both eyes affected 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, with long-term current use of insulin (HCC) Use one sensor every 10 days, IDDM, E 11.3293 0 01/04/2023 Active Start: 07-21-2022 Blood-Glucose Sensor (DEXCOM G7 SENSOR) yesenia Apply new sensor every ten (10) days. 9 Each 3 07/21/2022 Active Comment on above: Apply new sensor quinten ry ten (10) days. Use one sensor every 10 days, IDDM, E 11.3293 Blood-Glucose Transmitter (DEXCOM G6 TRANSMITTER) yesenia (8 sources) Start: 08-07-2022 End: 01-04-2023 Blood-Glucose Transmitter (DEXCOM G6 TRANSMITTER) yesenia Apply new transmitter every 90 days. Clean transmitter with an alcohol swab with each sensor change. 1 Each 3 08/07/2022 01/04/2023 Discontinued Start: 08-07-2022 Blood-Glucose Transmitter (DEXCOM G6 TRANSMITTER) yesenia Apply new transmitter every 90 days. Clean transmitter with an alcohol swab with each sensor change. 1 Each 3 08/07/2022 Active Comment on above: Apply new transmitte r every 90 days. Clean transmitter with an alcohol swab with each sensor change. carvedilol 25 mg oral tablet (20 sources) alpha-Adrenergic Eduardo, beta-Adrenergic Eduardo Start: 05-21-19 End: 05-28-19 25 take 1 tablet by mouth twice daily carvedilol (COREG) 25 mg tablet Indications: Primary hypertension , Nonrheumatic aortic (valve) stenosis , HOCM (hypertrophic obstructive cardiomyopathy) ([facility]) Take 1 tablet by mouth two times a day. 180 tablet 3 05/28/2024 Active Comment on above: Take 1 tablet by magalie th two times a day. chlorthalidone 25 mg oral tablet (20 sources) Thiazide-like Diuretic Start: 10-22-19 25 take 1 tablet by mouth once daily chlorthalidone (HYGROTON) 25 mg tablet Take 1 tablet by mouth once daily. 90 tablet 3 10/21/2024 Active Start: 11-20-2023 End: 10-21-2024 take 0.5 tablet by mouth once daily chlorthalidone (HYGROTON) 25 mg tablet Take 0.5 tablets by mouth once daily. 45 tablet 2 05/28/2024 10/21/2024 Discontinued Start: 06-24-2021 End: 07-05-2023 take 1 tablet by mouth once daily chlorthalidone (HYGROTON) 25 mg tablet Take 1 tablet by mouth once daily. 90 tablet 3 07/05/2023 Active Comment on above: TAKE 1 TABLET BY MAGALIE TH EVERY DAY Take 1 tablet by magalie th once daily. empagliflozin 10 mg oral tablet (20 sources) Sodium-Glucose Cotransporter 2 Inhibitor Start: 021 End: 025 take 1 tablet by mouth once daily at breakfast empagliflozin (JARDIANCE) 10 mg tablet Indications: Type 2 diabetes mellitus with both eyes affected 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, with long-term current use of insulin (HCC) Take 1 tablet by mouth daily with breakfast. 90 tablet 3 05/28/2024 Active Comment on above: Take 1 tablet by magalie th daily with breakfast. TAKE 1 TABLET DAILY WITH BREAKFAST fenofibrate 145 mg oral tablet (20 sources) Peroxisome Proliferator Receptor alpha Agonist Start: 023 take 1 tablet by mouth once daily Fenofibrate Nanocrystallized (Tricor) 145 mg Tablet Active 145 MG PO DAILY October 02, 2022 12:00am Start: 05-11-2021 take 1 tablet by magalie th once daily fenofibrate nanocrystallized (TRICOR) 145 mg tablet Indications: Mixed hyperlipidemia TAKE 1 TABLET BY MOUTH EVERY DAY 90 tablet 3 05/11/2021 Active Comment on above: TAKE 1 TABLET BY MAGALIE TH EVERY DAY finasteride 5 mg oral tablet (7 sources) 5-alpha Reductase Inhibitor Start: 5 End: 6 take 1 tablet by mouth once daily finasteride (PROSCAR) 5 mg tablet Take 1 tablet by mouth once daily. 90 tablet 3 10/08/2024 10/03/2025 Active flash glucose scanning reader (FREESTYLE ANA 2 READER) (20 sources) Start: 1 End: 3 flash glucose scanning reader (FREESTYLE ANA 2 READER) Use to test blood sugar using CGM scanners as directed. 1 Each 0 06/29/2020 07/07/2022 Discontinued Start: 06-29-2020 flash glucose scanning reader (FREESTYLE ANA 2 READER) Use to test blood sugar using CGM scanners as directed. 1 Each 0 06/29/2020 Active Comment on above: Use to test blood [place] [facility] using CGM scanners as directed. flash glucose sensor (FREESTYLE ANA 2 SENSOR) kit (20 sources) Start: 02-17-2021 End: 07-07-2022 flash glucose sensor (FREESTYLE ANA 2 SENSOR) kit Use one sensor every 14 days, IDDM, E11.9 2 Kit 11 02/17/2021 07/07/2022 Discontinued Start: 02-17-2021 flash glucose sensor (FREESTYLE ANA 2 SENSOR) kit Use one sensor every 14 days, IDDM, E11.9 2 Kit 11 02/17/2021 Active Comment on above: Use one sensor every 14 days, IDDM, E11.9 1 ml galcanezumab-gnlm 100 mg/ml prefilled syringe (20 sources) Start: 12-13-2023 End: 06-05-2024 galcanezumab-gnlm (EMGALITY SYRINGE) 300 mg/3 mL (100 mg/mL x 3) syringe Indications: Intractable episodic cluster headache Do not shake. Inject three 100 ml doses for every month as long as headaches persist. 3 mL 5 12/13/2023 06/05/2024 Discontinued 1.5 ml insulin glargine 300 unt/ml pen injector (20 sources) Insulin Analog Start: 07-22-2024 insulin glargine U-300 conc (TOUJEO SOLOSTAR U-300 INSULIN) 300 unit/mL (1.5 mL) Inject 40 Units subcutaneously once daily. 15 mL 3 07/22/2024 Active Start: 01-01-2024 End: 07-22-2024 insulin glargine U-300 conc (TOUJEO SOLOSTAR U-300 INSULIN) 300 unit/mL (1.5 mL) Inject 38 Units subcutaneously once daily. 15 mL 3 05/28/2024 07/22/2024 Discontinued Start: 10-30-2023 End: 01-01-2024 insulin glargine U-300 conc (TOUJEO SOLOSTAR U-300 INSULIN) 300 unit/mL (1.5 mL) Inject 35 Units subcutaneously once daily. 10/30/2023 01/01/2024 Discontinued (Adjust Sig - Block E-Cancel) Start: 09-04-2023 End: 10-30-2023 insulin glargine U-300 conc (TOUJEO SOLOSTAR U-300 INSULIN) 300 unit/mL (1.5 mL) Inject 38 Units subcutaneously once daily. 0 09/04/2023 10/30/2023 Discontinued (Adjust Sig - Block E-Cancel) Start: 08-21-2023 End: 09-04-2023 inject 18 [IU] by subcutaneous injection once daily insulin glargine U-300 conc (TOUJEO SOLOSTAR U-300 INSULIN) 300 unit/mL (1.5 mL) Inject 18 Units subcutaneously once daily. 13.5 mL 4 08/21/2023 09/04/2023 Discontinued (Adjust Sig - Block E-Cancel) Start: 04-30-2023 insulin glargi ne U-300 conc (TOUJEO SOLOSTAR U-300 INSULIN) 300 unit/mL (1.5 mL) Inject 48 Units subcutaneously once daily. 13.5 mL 4 04/30/2023 Active Start: 03-05-2023 insulin glargi ne (BASAGLAR KWIKPEN U-100 INSULIN) 100 unit/mL (3 mL) Indications: Type 2 diabetes mellitus with both eyes affected 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, with long-term current use of insulin (HCC) Inject 48 Units subcutaneously once daily. 0 03/05/2023 Active Start: 03-05-2023 insulin glargi ne (BASAGLAR KWIKPEN U-100 INSULIN) 100 unit/mL (3 mL) Indications: Type 2 diabetes mellitus with both eyes affected 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, with long-term current use of insulin (HCC) Inject 48 Units subcutaneously once daily. 0 03/05/2023 Active Start: 01-29-2023 End: 03-05-2023 insulin glargine (BASAGLAR K ADRIAKPEN U-100 INSULIN) 100 unit/mL (3 mL) Indications: Type 2 diabetes mellitus with both eyes affected 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, with long-term current use of insulin (HCC) Inject 45 Units subcutaneously once daily. 45 mL 3 01/29/2023 03/05/2023 Discontinued (Adjust Sig - Block E-Cancel) Start: 01-04-2023 End: 01-29-2023 insulin glargine (BASAGLAR K WIKPEN U-100 INSULIN) 100 unit/mL (3 mL) Indications: Type 2 diabetes mellitus with both eyes affected 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, with long-term current use of insulin (HCC) Inject 50 Units subcutaneously once daily. 45 mL 3 01/04/2023 01/29/2023 Discontinued Start: 10-02-2022 Insulin Glargi ne Active 44 UNIT SC DAILY October 02, 2022 12:00am Start: 10-28-2021 End: 01-04-2023 insulin glargine (BASAGLAR K WIKPEN U-100 INSULIN) 100 unit/mL (3 mL) Inject 44 Units subcutaneously once daily. 45 mL 3 05/17/2022 01/04/2023 Discontinued Start: 10-28-2021 End: 10-28-2021 insulin glargine (LANTUS MICHAELA OSTAR, BASAGLAR KWIKPEN) 100 unit/mL (3 mL) Inject 44 Units subcutaneously daily at bedtime. 14 Pen 3 10/28/2021 Active Start: 07-26-2021 End: 10-28-2021 insulin glargine (LANTUS MICHAELA OSTAR, BASAGLAR KWIKPEN) 100 unit/mL (3 mL) Inject 36 Units subcutaneously daily at bedtime. 5 Pen 5 07/26/2021 10/28/2021 Discontinued Start: 06-27-2021 End: 07-26-2021 insulin glargine (LANTUS MICHAELA OSTAR, BASAGLAR KWIKPEN) 100 unit/mL (3 mL) Inject 32 Units subcutaneously daily at bedtime. 5 Pen 5 06/27/2021 07/26/2021 Discontinued (Adjust Sig - Block E-Cancel) Comment on above: Inject 32 Units subc utaneously daily at bedtime. Inject 36 Units subc utaneously daily at bedtime. Inject 44 Units subc utaneously daily at bedtime. Inject 44 Units subc utaneously once daily. Inject 44 Units subc utaneously once daily Inject 50 Units subc utaneously once daily. Inject 45 Units subc utaneously once daily. Inject 48 Units subc utaneously once daily. iv contrast (will be provided with radiology test) (20 sources) Start: 11-30-2023 End: 05-28-2024 iv contrast (will be provided with radiology test) MRA Carotid WO/W Inject, intravenously, once for 1 dose. No IV access, insert saline lock prior to the beginning of sedation, infusion, injection of imaging exam. Discontinue saline lock post exam. If Pt. has a central line or IVAD, may access for administration according to line specific nursing protocol. Once exam is complete flush line and de-access according to line specific nursing protocol in the MR contrast administration guidelines link. 1 Each 11/30/2023 05/28/2024 Discontinued Start: 11-30-2023 iv contrast (w ill be provided with radiology test) MRA Carotid WO/W Inject, intravenously, once for 1 dose. No IV access, insert saline lock prior to the beginning of sedation, infusion, injection of imaging exam. Discontinue saline lock post exam. If Pt. has a central line or IVAD, may access for administration according to line specific nursing protocol. Once exam is complete flush line and de-access according to line specific nursing protocol in the MR contrast administration guidelines link. 1 Each 11/30/2023 Active Start: 11-30-2023 iv contrast (w ill be provided with radiology test) MRA Carotid WO/W Inject, intravenously, once for 1 dose. No IV access, insert saline lock prior to the beginning of sedation, infusion, injection of imaging exam. Discontinue saline lock post exam. If Pt. has a central line or IVAD, may access for administration according to line specific nursing protocol. Once exam is complete flush line and de-access according to line specific nursing protocol in the MR contrast administration guidelines link. 1 Each 0 11/30/2023 Active Start: 03-21-2023 inject 1 dose intravenously on ce iv contrast (will be provided with radiology test) CTA ABD/PEL - No IV access, insert saline lock prior to the sedation, infusion, injection for imaging exam. Discontinue saline lock post exam. If Pt. has a central line or IVAD, may access for administration according to line specific nursing protocol. Once exam is complete flush line and de-access according to line specific nursing protocol in the CT contrast administration guidelines link. 1 Each 0 03/21/2023 Active Comment on above: CTA ABD/PEL - No IV access, insert saline lock prior to the sedation, infusion, injection for imaging exam. Discontinue saline lock post exam. If Pt. has a central line or IVAD, may access for administration according to line specific nursing protocol. Once exam is complete flush line and de-access according to line specific nursing protocol in the CT contrast administration guidelines link. lisinopril 40 mg oral tablet (20 sources) Angiotensin Converting Enzyme Inhibitor Start: End: take 1 tablet by mouth once daily lisinopril (ZESTRIL) 40 mg tablet Take 1 tablet by mouth once daily. 90 tablet 3 05/28/2024 Active Start: 2023 End: 11-20-2023 take 1 tablet by mouth twice daily lisinopril (ZESTRIL) 10 mg tablet Take 1 tablet by mouth two times a day. 60 tablet 2 2023 11/20/2023 Discontinued Start: 10-30-2023 End: 2023 take 1 tablet by mouth once daily lisinopril (ZESTRIL) 5 mg tablet Take 1 tablet by mouth once daily. 30 tablet 2 10/30/2023 2023 Discontinued Start: 05-15-2023 take 1 tablet by magalie th once daily lisinopril (ZESTRIL) 5 mg tablet Indications: Nonrheumatic aortic (valve) stenosis , HOCM (hypertrophic obstructive cardiomyopathy) (HCC) , Primary hypertension Take 1 tablet by mouth once daily. 30 tablet 11 05/15/2023 Active Start: 08-28-2022 End: 08-28-2023 take 1 tablet by mouth once daily lisinopril (ZESTRIL) 40 mg tablet Indications: Essential hypertension Take 1 tablet by mouth once daily. 90 tablet 3 08/28/2022 08/28/2023 Active Start: 08-20-2020 End: 08-28-2022 take 1 tablet by mouth twice daily lisinopril (ZESTRIL, PRINIVIL) 40 mg tablet Indications: Essential hypertension TAKE 1 TABLET BY MOUTH TWICE A DAY 180 tablet 3 07/25/2021 08/28/2022 Discontinued Comment on above: TAKE 1 TABLET BY MAGALIE TH TWICE A DAY Take 1 tablet by magalie th once daily. 24 hr metFORMIN hydrochloride 500 mg extended release oral tablet (20 sources) Biguanide Start: 10-02-2022 take 1000 mg by mouth twice daily Metformin Active 1000 MG PO TWICE A DAY October 02, 2022 12:00am Start: 06-23-2021 End: 05-28-2024 take 2 tablets by mouth twice daily at mealtime metFORMIN ER (GLUCOPHAGE XR) 500 mg 24 hr tablet Take 2 tablets by mouth two times a day with meals. 360 tablet 3 05/28/2024 Active Comment on above: TAKE 2 TABLETS 2 DELL ES DAILY WITH MEALS Take 2 tablets by mo uth twice daily with meals. metoprolol tartrate 25 mg oral tablet (20 sources) beta-Adrenergic Eduardo Start: 10-02-2022 take 25 mg by mouth twice daily Metoprolol Tartrate Active 25 MG PO TWICE A DAY October 02, 2022 12:00am Start: 02-08-2022 End: 05-05-2023 take 1 tablet by mouth twice daily metoprolol tartrate 75 mg tab Take 1 tablet by mouth twice daily. 180 tablet 3 05/05/2022 05/05/2023 Active Start: 01-16-2022 End: 02-08-2022 take 1 tablet by mouth twice daily metoprolol tartrate, short acting, (LOPRESSOR) 50 mg tablet Indications: Coronary artery disease involving [place] coronary artery of [place] heart without angina pectoris Take 1 tablet by mouth twice daily. 180 tablet 3 01/16/2022 02/08/2022 Discontinued (Changing Therapy/Dosage Form) Start: 08-01-2021 End: 10-28-2021 take 1 tablet by mouth twice daily metoprolol tartrate, short acting, (LOPRESSOR) 50 mg tablet Take 1 tablet by mouth twice daily. 180 tablet 1 10/28/2021 Active Start: 02-03-2021 take 1 tablet by magalie th twice daily metoprolol tartrate, short acting, (LOPRESSOR) 50 mg tablet Take 1 tablet by mouth twice daily. 180 tablet 1 02/03/2021 Active Comment on above: Take 1 tablet by magalie th twice daily. mupirocin 0.02 mg/mg topical ointment (3 sources) RNA Synthetase Inhibitor Antibacterial Start: 08-15-19 mupirocin (BACTROBAN) 2 % ointment Apply a small amount in each nostril using a cotton swab twice the day before surgery and once the morning of surgery. 22 g 0 08/15/2023 Active oxyCODONE hydrochloride 5 mg oral tablet (3 sources) Opioid Agonist Start: 08-21-19 End: 08-28-19 take 1 tablet by mouth every six hours as needed for pain oxyCODONE IR (ROXICODONE) 5 mg immediate release tablet Indications: Post-op pain Take 1 tablet by mouth every 6 hours as needed for pain for up to 7 days. 28 tablet 0 08/21/2023 08/28/2023 Active perflutren lipid microspheres 1.3 mL in NaCl (PF) 0.9% 10 mL injection (DEFINITY) (20 sources) Start: 01-16-20 End: 01-23-20 perflutren lipid microspheres 1.3 mL in NaCl (PF) 0.9% 10 mL injection (DEFINITY) Start: 06-29-2022 End: 09-28-2023 perflutren lipid microsphere s 1.3 mL in NaCl (PF) 0.9% 10 mL injection (DEFINITY) Start: 06-22-2021 End: 09-21-2022 perflutren lipid microsphere s 1.3 mL in NaCl (PF) 0.9% 10 mL injection (DEFINITY) microencapsulated potassium chloride 20 meq extended release oral tablet (20 sources) Start: 11-15-2023 End: 08-29-2024 take 1 tablet by mouth once daily potassium chloride ER (KLOR-CON) 20 mEq tablet Take 1 tablet by mouth once daily. 5 tablet 11/15/2023 08/29/2024 Discontinued Start: 08-21-2023 End: 09-04-2023 take 1 tablet by mouth once daily potassium chloride ER (KLOR-CON M10) 10 mEq tablet Take 1 tablet by mouth once daily. 5 tablet 0 08/21/2023 09/04/2023 Discontinued (Course of therapy completed) rosuvastatin calcium 10 mg oral tablet (20 sources) HMG-CoA Reductase Inhibitor Start: 01-10-2021 End: 05-28-2024 take 1 tablet by mouth once rosuvastatin (CRESTOR) 10 mg tablet Indications: Mixed hyperlipidemia Take 1 tablet by mouth every afternoon. 90 tablet 3 05/28/2024 Active Comment on above: TAKE 1 TABLET ONCE D AILY 1 mg dose 1.5 ml semaglutide 1.34 mg/ml pen injector (5 sources) Start: 10-02-2022 Semaglutide (Ozempic) 1 mg/dose (2 mg/1.5 mL) Pen Injector Active 1 MG SC EVERY WEEK October 02, 2022 12:00am semaglutide (OZEMPIC) 1 mg/dose (4 mg/3 mL) pen injector (7 sources) Start: 06-23-2021 End: 12-12-2021 inject 1 mg by subcutaneous injection every week semaglutide (OZEMPIC) 1 mg/dose (4 mg/3 mL) pen injector Inject 1 mg subcutaneously one time a week. 3 mL 5 06/23/2021 12/12/2021 Discontinued Start: 06-23-2021 inject 1 mg by subcu taneous injection every week semaglutide (OZEMPIC) 1 mg/dose (4 mg/3 mL) pen injector Inject 1 mg subcutaneously one time a week. 3 mL 5 06/23/2021 Active Comment on above: Inject 1 mg subcutan eously one time a week. semaglutide (OZEMPIC) 2 mg/dose (8 mg/3 mL) pen injector (20 sources) Start: 023 End: 023 inject 2 mg by subcutaneous injection every week semaglutide (OZEMPIC) 2 mg/dose (8 mg/3 mL) pen injector Inject 2 mg subcutaneously one time a week. 9 mL 3 07/03/2022 01/04/2023 Discontinued Start: 07-03-2022 inject 2 mg by subcu taneous injection every week semaglutide (OZEMPIC) 2 mg/dose (8 mg/3 mL) pen injector Inject 2 mg subcutaneously one time a week. 9 mL 3 07/03/2022 Active Start: 12-12-2021 End: 12-19-2021 inject 2 mg by subcutaneous injection every week semaglutide (OZEMPIC) 2 mg/dose (8 mg/3 mL) pen injector Inject 2 mg subcutaneously one time a week. 9.64 mL 5 12/12/2021 12/19/2021 Discontinued Start: 12-12-2021 inject 2 mg by subcu taneous injection every week semaglutide (OZEMPIC) 2 mg/dose (8 mg/3 mL) pen injector Inject 2 mg subcutaneously one time a week. 9.64 mL 5 12/12/2021 Active Comment on above: Inject 2 mg subcutan eously one time a week. sildenafil 100 mg oral tablet (20 sources) Phosphodiesterase 5 Inhibitor Start: 10-02-2022 sildenafil (VIAGRA) 100 mg tablet Indications: Erectile dysfunction, unspecified erectile dysfunction type Take 1 tablet by mouth as needed. 30-60 minutes before sexual intercourse. 10 tablet 1 11/14/2022 Active Start: 10-12-2020 sildenafil ( AGRA) 100 mg tablet Indications: Erectile dysfunction, unspecified erectile dysfunction type Take 1 tablet by mouth as needed. 30-60 minutes before sexual intercourse. 5 tablet 1 10/12/2020 Active Comment on above: Take 1 tablet by magalie th as needed. 30-60 minutes before sexual intercourse. 125 ml sodium chloride 9 mg/ml prefilled syringe (20 sources) Start: 06-23-19 End: 09-28-19 sodium chloride 0.9 % (flush) 10 mL (BD POSIFLUSH) tamsulosin hydrochloride 0.4 mg oral capsule (20 sources) alpha-Adrenergic Eduardo Start: 07-22-19 End: 07-22-19 take 1 capsule by mouth twice daily tamsulosin (FLOMAX) 0.4 mg Indications: Elevated PSA , Benign prostatic hyperplasia with incomplete bladder emptying Take 1 capsule by mouth two times a day. 180 capsule 3 07/21/2024 07/21/2025 Active Start: 08-22-2023 End: 07-21-2024 take 1 capsule by mouth once daily tamsulosin (FLOMAX) 0.4 mg Take 1 capsule by mouth once daily. 90 capsule 3 05/28/2024 07/21/2024 Discontinued ticagrelor 90 mg oral tablet (20 sources) Start: 10-02-2022 take 1 tablet by mouth every twelve hours Ticagrelor (Brilinta) 90 mg Tablet Active 90 MG PO Q12H October 02, 2022 12:00am Start: 07-11-2022 End: 12-10-2024 take 1 tablet by mouth twice daily ticagrelor (BRILINTA) 90 mg tablet Indications: Coronary artery disease involving [place] coronary artery of [place] heart without angina pectoris Take 1 tablet by mouth two times a day. 180 tablet 3 05/28/2024 12/10/2024 Discontinued Comment on above: Take 1 tablet by magalie th twice daily. take 1 tablet twice a day tirzepatide (MOUNJARO) 15 mg/0.5 mL pen injector (6 sources) Start: 10-22-19 inject 15 mg by subcutaneous injection every week tirzepatide (MOUNJARO) 15 mg/0.5 mL pen injector Inject 15 mg subcutaneously one time a week. 6 mL 4 10/21/2024 Active Completed/Discontinued Medications Medication Drug Class(es) Dates Sig (Normalized) Sig (Original) acetaminophen 325 mg / HYDROcodone bitartrate 5 mg oral tablet (5 sources) Opioid Agonist Start: 08-20-2020 End: 11-14-2021 take 1 tablet by mouth once daily as needed for pain HYDROcodone-acetami nophen (NORCO) 5-325 mg per tablet Indications: Lumbar radiculopathy , Degeneration of lumbar or lumbosacral intervertebral disc , Displacement of lumbar intervertebral disc without myelopathy , Lumbar spondylosis , Other chronic pain Take one po qd prn pain 30 tablet 0 08/20/2020 11/14/2021 Discontinued Comment on above: Take one po qd prn p ain amLODIPine 10 mg oral tablet (20 sources) Dihydropyridine Calcium Channel Eduardo Start: 04-25-2021 End: 04-07-2022 amLODIPine (NORVASC) 10 mg tablet TAKE 1 TABLET ONCE DAILY 90 tablet 3 04/07/2022 Active Comment on above: Take 1 tablet by magalie th once daily. TAKE 1 TABLET ONCE D AILY Blood-Glucose Sensor (FREESTYLE ANA 3 SENSOR) yesenia (19 sources) Start: 07-06-2022 End: 07-21-2022 Blood-Glucose Sensor (FREESTYLE ANA 3 SENSOR) yesenia Apply sensor to back of arm to check blood sugars as directed. Change sensor every 2 weeks and rotate arms. 6 Each 3 07/06/2022 07/21/2022 Discontinued Start: 07-06-2022 Blood-Glucose Sensor (FREESTYLE NAA 3 SENSOR) yesenia Apply sensor to back of arm to check blood sugars as directed. Change sensor every 2 weeks and rotate arms. 6 Each 3 07/06/2022 Active Start: 03-13-2022 End: 07-06-2022 Blood-Glucose Sensor (FREEST YLE ANA 3 SENSOR) yesenia Apply sensor to back of arm to check blood sugars as directed. Change sensor every 2 weeks and rotate arms. 6 Each 3 03/13/2022 07/06/2022 Discontinued Start: 03-13-2022 Blood-Glucose Sensor (FREESTYLE ANA 3 SENSOR) yesenia Apply sensor to back of arm to check blood sugars as directed. Change sensor every 2 weeks and rotate arms. 6 Each 3 03/13/2022 Active Comment on above: Apply sensor to back of arm to check blood sugars as directed. Change sensor every 2 weeks and rotate arms. calcium chloride 0.0014 meq/ml / potassium chloride 0.004 meq/ml / sodium chloride 0.103 meq/ml / sodium lactate 0.028 meq/ml injectable solution (1 source) Start: 2024 End: 2024 take 30 mL intravenously every hour 30 mL/hr, INTRAVENOUS, CONTINUOUS, Starting on Sun06/24/24 at 0900, Until Sun06/24/24 at 0936, Preprocedure diphenhydrAMINE (1 source) Histamine-1 Receptor Antagonist Start: 2024 End: 2024 12.5-50 mg, INTRAVENOUS, DIRECTED, Starting on Sun06/24/24 at 0930, Until Sun06/24/24 at 1329, DOSING DIRECTED BY PHYSICIAN FOR PROCEDURAL SEDATION ONLY, Intraprocedure 1 ml fentaNYL 0.05 mg/ml injection (1 source) Opioid Agonist Start: 2024 End: 2024 25-100 mcg, INTRAVENOUS, DIRECTED, Starting on Sun06/24/24 at 0930, Until Sun06/24/24 at 1329, DOSING DIRECTED BY PHYSICIAN FOR PROCEDURAL SEDATION ONLY, Intraprocedure furosemide 20 mg oral tablet (5 sources) Loop Diuretic Start: 2023 End: 2023 take 1 tablet by mouth once daily furosemide (LASIX) 20 mg tablet Take 1 tablet by mouth once daily for 5 days. 5 tablet 0 08/21/2023 09/04/2023 Discontinued (Course of therapy completed) 5 ml midazolam 1 mg/ml injection (1 source) Benzodiazepine Start: 2024 End: 2024 1-5 mg, INTRAVENOUS, DIRECTED, Starting on Sun06/24/24 at 0930, Until Sun06/24/24 at 1329, DOSING DIRECTED BY PHYSICIAN FOR PROCEDURAL SEDATION ONLY, Intraprocedure regadenoson 0.4 mg injection (LEXISCAN) (1 source) Start: 2021 End: 2021 regadenoson 0.4 mg injection (LEXISCAN) semaglutide (OZEMPIC) 1 mg/dose (4 mg/3 mL) pen (19 sources) Start: 2021 End: 2022 semaglutide (OZEMPIC) 1 mg/dose (4 mg/3 mL) pen Inject 2 mg subcutaneously one time a week. Do 2 injections of 1mg at separate injection sites as discussed. 18 mL 3 12/19/2021 07/03/2022 Discontinued Start: 12-19-2021 semaglutide (O ZEMPIC) 1 mg/dose (4 mg/3 mL) pen Inject 2 mg subcutaneously one time a week. Do 2 injections of 1mg at separate injection sites as discussed. 18 mL 3 12/19/2021 Active Comment on above: Inject 2 mg subcutan eously one time a week. Do 2 injections of 1mg at separate injection sites as discussed. tirzepatide (MOUNJARO) 10 mg/0.5 mL pen injector (20 sources) Start: 025 End: 025 inject 10 mg by subcutaneous injection every week tirzepatide (MOUNJARO) 10 mg/0.5 mL pen injector Inject 10 mg subcutaneously one time a week. 6 mL 4 06/09/2024 07/22/2024 Discontinued Start: 06-09-2024 inject 10 mg by subc utaneous injection every week tirzepatide (MOUNJARO) 10 mg/0.5 mL pen injector Inject 10 mg subcutaneously one time a week. 6 mL 4 06/09/2024 Active Start: 05-28-2024 End: 06-09-2024 inject 10 mg by subcutaneous injection every week tirzepatide (MOUNJARO) 10 mg/0.5 mL pen injector Inject 10 mg subcutaneously one time a week. 6 mL 1 05/28/2024 06/09/2024 Discontinued Start: 05-28-2024 inject 10 mg by subc utaneous injection every week tirzepatide (MOUNJARO) 10 mg/0.5 mL pen injector Inject 10 mg subcutaneously one time a week. 6 mL 1 05/28/2024 Active Start: 04-04-2024 End: 05-28-2024 inject 10 mg by subcutaneous injection every week tirzepatide (MOUNJARO) 10 mg/0.5 mL pen injector Inject 10 mg subcutaneously one time a week. 6 mL 1 04/04/2024 05/28/2024 Discontinued Start: 04-04-2024 inject 10 mg by subc utaneous injection every week tirzepatide (MOUNJARO) 10 mg/0.5 mL pen injector Inject 10 mg subcutaneously one time a week. 6 mL 1 04/04/2024 Active Start: 03-04-2024 End: 04-04-2024 inject 10 mg by subcutaneous injection every week tirzepatide (MOUNJARO) 10 mg/0.5 mL pen injector Inject 10 mg subcutaneously one time a week. 6 mL 2 03/04/2024 04/04/2024 Discontinued Start: 03-04-2024 inject 10 mg by subc utaneous injection every week tirzepatide (MOUNJARO) 10 mg/0.5 mL pen injector Inject 10 mg subcutaneously one time a week. 6 mL 2 03/04/2024 Active tirzepatide (MOUNJARO) 12.5 mg/0.5 mL pen injector (11 sources) Start: 07-22-2024 End: 10-21-2024 inject 12.5 mg by subcutaneous injection every week tirzepatide (MOUNJARO) 12.5 mg/0.5 mL pen injector Inject 12.5 mg subcutaneously one time a week. 6 mL 1 07/22/2024 10/21/2024 Discontinued Start: 07-22-2024 inject 12.5 mg by blanchard bcutaneous injection every week tirzepatide (MOUNJARO) 12.5 mg/0.5 mL pen injector Inject 12.5 mg subcutaneously one time a week. 6 mL 1 07/22/2024 Active tirzepatide (MOUNJARO) 5 mg/0.5 mL pen injector (10 sources) Start: 01-04-2023 inject 5 mg by subcutaneous injection every week tirzepatide (MOUNJARO) 5 mg/0.5 mL pen injector Indications: Type 2 diabetes mellitus with both eyes affected 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, with long-term current use of insulin (HCC) Inject 5 mg subcutaneously one time a week. 6 mL 3 01/04/2023 Active Comment on above: Inject 5 mg subcutaneously one time a we ek. tirzepatide (MOUNJARO) 7.5 mg/0.5 mL pen injector (20 sources) Start: 10-08-2023 End: 03-04-2024 inject 7.5 mg by subcutaneous injection every week tirzepatide (MOUNJARO) 7.5 mg/0.5 mL pen injector Inject 7.5 mg subcutaneously one time a week. 6 mL 1 10/08/2023 03/04/2024 Discontinued (Changing Therapy/Dosage Form) Start: 10-08-2023 inject 7.5 mg by sub cutaneous injection every week tirzepatide (MOUNJARO) 7.5 mg/0.5 mL pen injector Inject 7.5 mg subcutaneously one time a week. 6 mL 1 10/08/2023 Active Start: 05-21-2023 End: 10-08-2023 inject 7.5 mg by subcutaneous injection every week tirzepatide (MOUNJARO) 7.5 mg/0.5 mL pen injector Inject 7.5 mg subcutaneously one time a week. 6 mL 1 05/21/2023 10/08/2023 Discontinued Start: 05-21-2023 inject 7.5 mg by sub cutaneous injection every week tirzepatide (MOUNJARO) 7.5 mg/0.5 mL pen injector Inject 7.5 mg subcutaneously one time a week. 6 mL 1 05/21/2023 Active Comment on above: Inject 7.5 mg subcut aneously one time a week. verapamil hydrochloride 80 mg oral tablet (9 sources) Calcium Channel Eduardo Start: 12-05-19 End: 12-27-19 24 take 1 tablet by mouth three times daily verapamil 80 mg tablet Take 1 tablet by mouth three times a day. 90 tablet 2 12/06/2023 12/27/2023 Discontinued vitamin b12 0.5 mg oral tablet (11 sources) Vitamin B12 Start: 03-06-20 End: 06-30-19 take 1 tablet by mouth once daily cyanocobalamin (VITAMIN B-12) 500 mcg tablet Take 1 tablet by mouth once daily. 0 03/06/2022 06/29/2022 Discontinued Comment on above: Take 1 tablet by magalie once daily. Problems Active Problems Problem Classification Problem Date Documented Da te Episodic/Chronic Cardiac dysrhythmias (1 source) Cardiac arrhythmia; Translations: [Cardiac arrhythmia, unspecified] 12-13-2023 Chronic Conduction disorders (2 sources) First degree atrioventricular block; Translations: [Atrioventricular block, first degree] Chronic Coronary atherosclerosis and other heart disease (20 sources) Coronary atherosclerosis; Translations: [Atherosclerotic heart disease of [place] coronary artery without angina pectoris] Onset: 5 Resolved: 1 05-30-2019 Chronic Diabetes mellitus with complications (20 sources) Type II diabetes mellitus uncontrolled; Translations: [Type 2 diabetes mellitus with hyperglycemia] Onset: 2 Chronic Diabetes mellitus without complication (20 sources) Type 2 diabetes mellitus without complication; Translations: [Type 2 diabetes mellitus without complications] Onset: 2 03-08-2016 Chronic Disorders of lipid metabolism (20 sources) Hyperlipidemia; Translations: [Hyperlipidemia, unspecified] Onset: 2 03-05-2015 Chronic E Codes: Natural/environment (1 source) Dog bite - wound; Translations: [Bitten by dog, initial encounter] Episodic Essential hypertension (20 sources) Essential (primary) hypertension; Translations: [Essential hypertension] Onset: 2 Resolved: 5 Chronic Headache; including migraine (4 sources) Intractable episodic cluster headache; Translations: [Episodic cluster headache, intractable] 11-30-2023 Chronic Headache; including migraine (5 sources) Thunderclap headache; Translations: [Primary thunderclap headache] Onset: 4 11-30-2023 Episodic Headache; including migraine (1 source) Headache; including migraine; Translations: [Acute nonintractable headache, unspecified headache type] Onset: 4 Heart valve disorders (20 sources) Aortic stenosis, non-rheumatic ; Translations: [Nonrheumatic aortic (valve) stenosis] Onset: 0 05-30-2019 Chronic Hyperplasia of prostate (20 sources) Benign prostatic hyperplasia; Translations: [Benign prostatic hyperplasia with lower urinary tract symptoms] Onset: 2 08-23-2017 Chronic Nonspecific chest pain (3 sources) Chest pain; Translations: [Chest pain, unspecified] 07-13-2023 Episodic Other aftercare (1 source) Drug therapy finding; 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] 02-07-2023 Episodic Other and ill-defined heart disease (2 sources) Diastolic dysfunction; Translations: [Other ill-defined heart diseases] Chronic Other gastrointestinal disorders (3 sources) Stool DNA-based colorectal cancer screening positive; Translations: [Other fecal abnormalities] 02-07-2023 Episodic Other lower respiratory disease (5 sources) Dyspnea on exertion; Translations: [Other forms of dyspnea] Episodic Other lower respiratory disease (5 sources) Dyspnea; Translations: [Shortness of breath] 07-13-2023 Episodic Other male genital disorders (20 sources) Male erectile dysfunction, unspecified; Translations: [Impotence of organic origin] Onset: 5 08-26-2014 Chronic Other nervous system disorders (20 sources) Chronic pain; Translations: [Other chronic pain] Onset: 8 11-13-2017 Chronic Other nervous system disorders (1 source) H/O: respiratory disease; Translations: [Personal history of other diseases of the nervous system and sense organs] Episodic Other nutritional; endocrine; and metabolic disorders (20 sources) Obese class I; Translations: [Obesity, unspecified] Onset: 1 Chronic Other nutritional; endocrine; and metabolic disorders (17 sources) Obesity; Translations: [Obesity, unspecified] Onset: 1 Chronic Alvina-; endo-; and myocarditis; cardiomyopathy (except that caused by tuberculosis or sexually transmitted disease) (20 sources) Hypertrophic obstructive cardiomyopathy; Translations: [Obstructive hypertrophic cardiomyopathy] Onset: 4 05-15-2023 Chronic Residual codes; unclassified (1 source) Sleep apnea; Translations: [Sleep apnea, unspecified] 01-15-2023 Chronic Residual codes; unclassified (1 source) History of bradycardia; Translations: [Personal history of other specified conditions] Episodic Screening and history of mental health and substance abuse codes (8 sources) Tobacco use and exposure - finding; Translations: [Personal history of nicotine dependence] Onset: 5 Episodic Spondylosis; intervertebral disc disorders; other back problems (20 sources) Prolapsed lumbar intervertebral disc; Translations: [Other intervertebral disc displacement, lumbar region] Onset: 7 01-19-2017 Chronic Substance-related disorders (20 sources) Nicotine dependence; Translations: [Nicotine dependence, chewing tobacco, uncomplicated] Onset: 9 08-27-2018 Chronic Unclassified (20 sources) Interactive Heart Surgery Education Onset: 4 07-13-2023 Past or Other Problems Problem Classification Problem Date Documented Da te Episodic/Chronic Administrative/social admission (20 sources) Discharge status; Translations: [Other problems related to medical facilities and other health care] Onset: 4 Resolved: 5 08-14-2023 Episodic Cardiac dysrhythmias (20 sources) Bradycardia; Translations: [Bradycardia, unspecified] Onset: 9 Resolved: 4 05-01-2019 Episodic Coronary atherosclerosis and other heart disease (2 sources) Presence of coronary angioplasty implant and graft; Translations: [Status post insertion of drug eluting coronary artery stent] Onset: 3 Episodic Coronary atherosclerosis and other heart disease (1 source) Coronary atherosclerosis and other heart disease Onset: 7 Essential hypertension (2 sources) Essential hypertension Onset: 7 Fluid and electrolyte disorders (20 sources) Hypokalemia; Translations: [Hypokalemia] Onset: 4 Resolved: 5 Episodic Genitourinary symptoms and ill-defined conditions (2 sources) Feeling of incomplete bladder emptying; Translations: [Benign prostatic hyperplasia with incomplete bladder emptying] Onset: 4 Episodic Heart valve disorders (20 sources) Heart murmur; Translations: [Cardiac murmur, unspecified] Onset: 9 Resolved: 0 05-30-2019 Episodic Other aftercare (20 sources) Patient encounter status; Translations: [Other half-way (current) drug therapy] Onset: 4 Resolved: 5 01-29-2023 Episodic Other aftercare (4 sources) 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; Translations: [Type 2 diabetes mellitus without complication, with long-term current use of insulin (HCC)] Onset: 4 Episodic Other and unspecified benign neoplasm (20 sources) Polyp of colon; Translations: [Polyp of colon] Onset: 5 07-15-2014 Episodic Other connective tissue disease (20 sources) Left rotator cuff syndrome; Translations: [Unspecified rotator cuff tear or rupture of left shoulder, not specified as traumatic] Onset: 0 01-28-2020 Episodic Other gastrointestinal disorders (1 source) Other fecal abnormalities; Translations: [Positive colorectal cancer screening using Cologuard test] Onset: 5 Episodic Other lower respiratory disease (1 source) Shortness of breath; Translations: [SOB (shortness of breath)] Onset: 4 Episodic Other nervous system disorders (20 sources) Postoperative pain ; Translations: [Other acute postprocedural pain] Onset: 4 Resolved: 5 08-16-2023 Episodic Pleurisy; pneumothorax; pulmonary collapse (20 sources) Atelectasis; Translations: [Atelectasis] Onset: 4 Resolved: 5 08-17-2023 Episodic Residual codes; unclassified (20 sources) Delirium; Translations: [Disorientation, unspecified] Onset: 4 Resolved: 5 08-17-2023 Episodic Residual codes; unclassified (20 sources) H/O: myomectomy; Translations: [Other specified postprocedural states] Onset: 4 09-18-2023 Episodic Residual codes; unclassified (2 sources) Other specified postprocedural states; Translations: [S/P myomectomy] Onset: 4 Episodic Spondylosis; intervertebral disc disorders; other back problems (20 sources) Lumbar radiculopathy; Translations: [Radiculopathy, lumbar region] Onset: 9 08-27-2018 Episodic Unclassified (20 sources) Abnormal electrocardiogram [ECG] [EKG]; Translations: [Patient encounter status] Onset: 7 Resolved: 1 Episodic Unclassified (2 sources) Abnormal electrocardiogram [ECG] [EKG] / R94.31(ICD-10) Onset: 7 Unclassified (1 source) Encounter for other preprocedural examination / Z01.818(ICD-10) Onset: 7 Unclassified (1 source) Tobacco use / Z72.0(ICD-10) Onset: 7 Unclassified (2 sources) Patient encounter status 06-05-2024 Results Test Name Value Interpretation Reference Range Facility [facility] 01-27-2025 [facility] ERIK CLARKE ([id number]) 1955 M Date Time Provider Department 01/27/25 OPHELIA NULL [facility] During your visit today, we recorded the following information about you: Ophelia Null RPh 01/27/2025 11:26 AM Signed Patient called and LMOM for PharmD requestin refill for Mounjaro 15 mg. Sent updated Rx to pharmacy Patient's request for medication is as follows: Requested Prescriptions Signed Prescriptions Disp Refills tirzepatide (MOUNJARO) 15 mg/0.5 mL pen injector 6 mL 4 Sig: Inject 15 mg subcutaneously one time a week. Authorizing Provider: DENIS RIVERO Ordering User: OPHELIA NULL, ChasidyD, BCACP Primary Care Clinical Industrial Hygiene Manager Allergies As of Date: 01/27/2025 Noted Allergy Reaction VERAPAMIL 02/28/2024 14 - Other: See Comments Comments: Severe debilitating cluster headaches Date Reviewed: 12/10/2024 Reviewed by: Abril Child MA - Fully Assessed Reason for Visit: Refill Request [94] Order(s):tirzepatide (MOUNJARO) 15 mg/0.5 mL pen injectorInject 15 mg subcutaneously one time a week.Disp: 6 mLRfl: 4 Prescriptions as of 01/27/2025 - tirzepatide (MOUNJARO) 15 mg/0.5 mL pen injector Inject 15 mg subcutaneously one time a week. - Insulin [place], Disposable, (BD ULTRAFINE III MINI PEN) 31 gauge x 3/16 Use to inject insulin once daily - chlorthalidone (HYGROTON) 25 mg tablet Take 1 tablet by mouth once daily. - finasteride (PROSCAR) 5 mg tablet Take 1 tablet by mouth once daily. - Lancets Use as instructed to check blood sugar twice daily (E11.9, Z79.4) - blood sugar diagnostic (BLOOD GLUCOSE TEST) test strip Use as instructed to check blood sugar twice daily (E11.9, Z79.4) - Blood-Glucose Meter Use to check blood sugar 2 times per day - insulin glargine U-300 conc (TOUJEO SOLOSTAR U-300 INSULIN) 300 unit/mL (1.5 mL) Inject 40 Units subcutaneously once daily. - tamsulosin (FLOMAX) 0.4 mg Take 1 capsule by mouth two times a day. - Blood-Glucose Sensor (DEXCOM G7 SENSOR) yesenia APPLY NEW SENSOR EVERY 10 DAYS - empagliflozin (JARDIANCE) 10 mg tablet Take 1 tablet by mouth daily with breakfast. - metFORMIN ER (GLUCOPHAGE XR) 500 mg 24 hr tablet Take 2 tablets by mouth two times a day with meals. - rosuvastatin (CRESTOR) 10 mg tablet Take 1 tablet by mouth every afternoon. - carvedilol (COREG) 25 mg tablet Take 1 tablet by mouth two times a day. - lisinopril (ZESTRIL) 40 mg tablet Take 1 tablet by mouth once daily. - Blood Pressure Monitor Use to monitor blood pressure - Blood-Glucose Meter,Continuous (DEXCOM G7 GENERATOR ASSEMBLER) [facility] [place] continuously to monitor glucose, IDDM, E 11.3293 - aspirin, enteric coated (ECOTRIN LOW STRENGTH) 81 mg EC tablet Take 1 tablet by mouth once daily. 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*01/22/2012 Essential hypertension [I10] 01/22/2012 Hyperlipidemia [E78.5] 01/22/2012 Benign prostatic hyperplasia with lower urinary*01/22/2012 Colon polyps [K63.5] 07/15/2014 Other and unspecified angina pectoris [I20.9] 07/15/2014 10/12/2020 Erectile dysfunction [N52.9] 08/26/2014 Prolapsed lumbar disc [M51.26] 01/19/2017 Stable angina (HCC) [I20.89] 11/13/2017 Chewing tobacco nicotine dependence without com*08/27/2018 Lumbar spondylosis [M47.816] 08/27/2018 DDD (degenerative disc disease), lumbar [M51.36*08/27/2018 Lumbar radiculopathy [M54.16] 08/27/2018 Abnormal finding on echocardiogram [R93.1] 08/27/2018 10/12/2020 Heart murmur [R01.1] 08/27/2018 05/30/2019 Bradycardia [R00.1] 04/22/2019 08/17/2023 Nicotine use disorder, F17.2 [F17.200] 04/23/2019 Nonrheumatic aortic (valve) stenosis [I35.0] 05/30/2019 Coronary artery disease involving [place]*05/30/2019 Rotator cuff syndrome of left shoulder [M75.102]01/28/2020 Status post insertion of drug eluting coronary *08/28/2022 HOCM (hypertrophic obstructive cardiomyopathy) *05/15/2023 Discharge planning issues [Z75.8] 08/14/2023 12/10/2024 Encounter for support and coordination of trans*08/14/2023 12/10/2024 Post-op pain [G89.18] 08/16/2023 12/10/2024 Hypovolemia [E86.1] 08/16/2023 12/10/2024 Atelectasis [J98.11] 08/17/2023 12/10/2024 Delirium [R41.0] 08/17/2023 12/10/2024 Diabetes mellitus type 1, controlled, without c*08/18/2023 Hypervolemia [E87.70] 08/18/2023 12/10/2024 S/P myomectomy [Z98.890] 09/18/2023 S/P AVR [Z95.2] 09/18/2023 Primary hypertension [I10] 09/18/2023 12/10/2024 Elevated PSA [R97.20] 07/21/2024 Prescriptions ordered this encounter Disp Refills Start End TIRZEPATIDE 15 MG/0.5 ML SUBCUTANEOU* 6 mL 4 01/27/2025 Cmt: Please contact Ophelia Null PharmD at [phone] with any questions regarding this script. Route: SQ Sig: Inject 15 mg subcutaneously one time a week. Medications Discontinued D (more content not included)... Normal [facility] CNOVon 01-06-2025 CNOV Office Visit ([facility] ) ERIK CLARKE ([id number]) 1955 M Date Time Provider Department 01/06/25 9:00 AM OPHELIA NULL [facility] During your visit today, we recorded the following information about you: Ophelia Null margaret 01/06/2025 9:23 AM Signed Primary Care Pharmacy Visit CC (Reason for Consult): (E11.9, Z79.4) Type 2 diabetes mellitus without complication, with long-term current use of insulin (HCC) (primary encounter diagnosis) Goal(s): A1c <7% Last Collaborating Provider Visit: 12/10/[address] Mat Sepulveda Vince is a 69 year old male presenting for follow up visit in person. Patient consents to pharmacy collaborative practice agreement. Last Pharmacy Visit: 10/21/24 - Mounjaro increased to 15 mg weekly Interim Events: - 01/05/25 lab results - A1c 7.7%, BMP and UACR WNL HPI: Reports doing well Confirmed increasing Mounjaro to 15 mg, tolerating well States BGs have been stable lately Admits to late night snacking some nights Current DM Medications: Metformin ER 500 mg #2 twice daily Jardiance 10 mg once daily Mounjaro 15 mg once weekly on Fridays Toujeo 40 units once daily in evening Previously Trialed DM Meds: Glimepiride - changed to insulin Ilalevar Moser - can't remember why he stopped it Jardiance 25 mg - balanitis Diet Denies any recent changes GLYCEMIC CONTROL: Glucometer present at visit: Yes Hypoglycemia: No CGM Data Past medical history reviewed. ALLERGIES Allergen Reactions Verapamil Other: See Comments Severe debilitating cluster headaches Current Outpatient Medications Medication Sig Dispense Refill Insulin [place], Disposable, (BD ULTRAFINE III MINI PEN) 31 gauge x 3/16 Use to inject insulin once daily 100 each 3 chlorthalidone (HYGROTON) 25 mg tablet Take 1 tablet by mouth once daily. 90 tablet 3 tirzepatide (MOUNJARO) 15 mg/0.5 mL pen injector Inject 15 mg subcutaneously one time a week. 6 mL 4 finasteride (PROSCAR) 5 mg tablet Take 1 tablet by mouth once daily. 90 tablet 3 Lancets Use as instructed to check blood sugar twice daily (E11.9, Z79.4) 200 each 3 blood sugar diagnostic (BLOOD GLUCOSE TEST) test strip Use as instructed to check blood sugar twice daily (E11.9, Z79.4) 200 each 3 Blood-Glucose Meter Use to check blood sugar 2 times per day 1 Each 0 insulin glargine U-300 conc (TOUJEO SOLOSTAR U-300 INSULIN) 300 unit/mL (1.5 mL) Inject 40 Units subcutaneously once daily. 15 mL 3 tamsulosin (FLOMAX) 0.4 mg Take 1 capsule by mouth two times a day. 180 capsule 3 Blood-Glucose Sensor (Anne Fogarty G7 SENSOR) yesenia APPLY NEW SENSOR EVERY 10 DAYS 9 Each 4 empagliflozin (JARDIANCE) 10 mg tablet Take 1 tablet by mouth daily with breakfast. 90 tablet 3 metFORMIN ER (GLUCOPHAGE XR) 500 mg 24 hr tablet Take 2 tablets by mouth two times a day with meals. 360 tablet 3 rosuvastatin (CRESTOR) 10 mg tablet Take 1 tablet by mouth every afternoon. 90 tablet 3 carvedilol (COREG) 25 mg tablet Take 1 tablet by mouth two times a day. 180 tablet 3 lisinopril (ZESTRIL) 40 mg tablet Take 1 tablet by mouth once daily. 90 tablet 3 Blood Pressure Monitor Use to monitor blood pressure 1 Each 0 Blood-Glucose Meter,Continuous (DEXCOM G7 GENERATOR ASSEMBLER) misc Use continuously to monitor glucose, IDDM, E 11.4623 aspirin, enteric coated (ECOTRIN LOW STRENGTH) 81 mg EC tablet Take 1 tablet by mouth once daily. No current facility-administered medications for this visit. Pill bottles are not present. Adherence: denies missed doses. Rx coverage: Payor: MEDICARE / Plan: MEDICARE A AND B / Product Type: Medicare / Medications affordable? Yes PHARMACOTHERAPY PREVENTATIVE MEDS: On MARY BETH/ARB: Yes On Statin: Yes On ASA: Yes EXAM: There were no vitals taken for this visit. Last 3 Encounter BP Readings: Date: BP: 12/10/2024 119/69 08/28/2024 126/78 07/21/2024 138/83 Wt: 85 kg (187 lb 6.3 oz) BMI: 28.49 kg/(m2) LABS: Lab Results Component Value Date HBA1C 7.7 01/05/2025 HBA1C 7.2 10/07/2024 HBA1C 7.5 06/16/2024 HBA1C 7.9 12/13/2021 HBA1C 9.1 04/05/2020 HBA1C 9.0 11/03/2019 HBA1C 8.4 03/14/2019 HBA1C 8.0 08/24/2018 Glucose 158 01/05/2025 BUN 14 01/05/2025 Creatinine 0.72 01/05/2025 Sodium 139 01/05/2025 Potassium 3.8 01/05/2025 Chloride 101 01/05/2025 CO2 23 01/05/2025 Protein, Total 7.4 06/16/2024 Albumin 4.5 06/16/2024 Calcium 9.5 01/05/2025 Alkaline Phosphatase 47 06/16/2024 Bilirubin, Total 1.4 06/16/2024 AST 19 06/16/2024 ALT 20 06/16/2024 Lab Results Component Value Date CHOL 109 01/05/2025 CHOL 146 04/05/2020 LDL 51 01/05/2025 LDL 53 04/05/2020 HDL 33 01/05/2025 HDL 31 04/05/2020 TG 144 01/05/2025 TG 310 04/05/2020 Albumin/Creat Ratio (mg/g) Date Value 01/05/2025 23 eGFR-All Other Races Date Value 06/09/2021 >60 04/05/2020 >60 . Estimated Glomerular Filtration Rate (mL/min (more content not included)... Normal [facility] ALBUMIN/CREATININE RATIO, UR INEon 01-05-2025 Albumin Unsp time DL <= 20 mg/L (U) [Mass/Time] 19.6 mg/L Normal [facility] Comment on above: Order Comment: Speci men Type: URINE SPECIMEN Ordering Facility: [facility] Address: [address] [place] [address] Performed By: #### U ACR #### [facility] CLIA [id number] [address] [place] [facility] Albumin/Creatinine (U) [Mass ratio] 23 mg/g Normal <30 [facility] Comment on above: Order Comment: Speci men Type: URINE SPECIMEN Ordering Facility: [facility] Address: [address] [place] [address] Result Comment: Adul t Male and Female Nephrotic Criteria: <30 mg/g is considered normal to mildly increased 30-300 mg/g is considered moderately increased >300 mg/g is considered severely increased KDIGO. (2013). KDIGO 2012 Clinical Practice Guideline for the Evaluation and Management of Chronic Kidney Disease. Official Journal of the International Society of Nephrology, 3(1), 1-150. Performed By: #### U ACR #### [facility] CLIA [id number] [address] [place] [facility] Creatinine (U) [Mass/Vol] 86.2 mg/dL Normal 46.8-314.5 [facility] Comment on above: Order Comment: Speci men Type: URINE SPECIMEN Ordering Facility: [facility] Address: [address] [id number] Performed By: #### U ACR #### [facility] CLIA [id number] [address] [place] [address] [place] Basic metabolic 2000 panelon 01-05-2025 Anion gap [Moles/Vol] 15 mmol/L Normal 8-15 [facility] Comment on above: Order Comment: Speci men Type: BLOOD SPECIMEN Ordering Facility: [facility] Address: [address] [place] [address] Performed By: #### 5 5454-3 #### [facility] CLIA [id number] [address] [place] [address] [place] Calcium [Mass/Vol] 9.5 mg/dL Normal 8.5-10.2 [facility] Comment on above: Order Comment: Speci men Type: BLOOD SPECIMEN Ordering Facility: [facility] Address: [address] [place] [address] Performed By: #### 5 5454-3 #### [facility] CLIA [id number] [address] [place] [address] [place] Chloride [Moles/Vol] 101 mmol/L Normal 98-107 [facility] Comment on above: Order Comment: Speci men Type: BLOOD SPECIMEN Ordering Facility: [facility] Address: [address] [place] [address] Performed By: #### 5 5454-3 #### [facility] CLIA [id number] [address] [place] [address] [place] CO2 [Moles/Vol] 23 mmol/L Normal 22-30 [facility] Comment on above: Order Comment: Speci men Type: BLOOD SPECIMEN Ordering Facility: [facility] Address: [address] [place] [address] Performed By: #### 5 5454-3 #### [facility] CLIA [id number] [address] [place] [address] [place] Creatinine [Mass/Vol] 0.72 mg/dL Low 0.73-1.22 [facility] Comment on above: Order Comment: Speci men Type: BLOOD SPECIMEN Ordering Facility: [facility] Address: [address] [place] [address] Performed By: #### 5 5454-3 #### [facility] CLIA [id number] [address] [place] [address] [place] eGFRcr SerPlBld CKD-EPI 2020 98 mL/min/1.73m??? Normal >=60 [facility] Comment on above: Order Comment: Luda neilsen Type: BLOOD SPECIMEN Ordering Facility: [facility] Address: [address] [place] [address] Result Comment: Yohannes mated Glomerular Filtration Rate (eGFR) is calculated using the 2020 CKD-EPI creatinine equation. This equation utilizes serum creatinine, sex, and age as parameters. The creatinine assay has traceable calibration to isotope dilution-mass spectrometry. Refer to KDIGO guidelines for clinical interpretation. In patients with unstable renal function, e.g. those with acute kidney injury, the eGFR may not accurately reflect actual GFR. Performed By: #### 5 5454-3 #### [facility] CLIA [id number] [address] [place] [address] [place] Glucose [Mass/Vol] 158 mg/dL High 74-99 [facility] Comment on above: Order Comment: Luda nielsen Type: BLOOD SPECIMEN Ordering Facility: [facility] Address: [address] [place] [address] Result Comment: The [place] Diabetes Association (ADA) provides guidance for cutoff values for fasting glucose and random glucose. The ADA defines fasting as no caloric intake for at least 8 hours. Fasting plasma glucose results between 100 to 125 mg/dL indicate increased risk for diabetes (prediabetes). Fasting plasma glucose results greater than or equal to 126 mg/dL meet the criteria for diagnosis of diabetes. In the absence of unequivocal hyperglycemia, results should be confirmed by repeat testing. In a patient with classic symptoms of hyperglycemia or hyperglycemic crisis, random plasma glucose results greater than or equal to 200 mg/dL meet the criteria for diagnosis of diabetes. Reference: Standards of Medical Care in Diabetes 2016, [place] [employer]. Diabetes Care. 2016.39(Suppl 1). Performed By: #### 5 5454-3 #### [facility] CLIA [id number] [address] [place] [address] [place] Potassium [Moles/Vol] 3.8 mmol/L Normal 3.7-5.1 [facility] Comment on above: Order Comment: Speci men Type: BLOOD SPECIMEN Ordering Facility: [facility] Address: [address] [place] [address] Performed By: #### 5 5454-3 #### [facility] CLIA [id number] [address] [place] [address] [place] Sodium [Moles/Vol] 139 mmol/L Normal 136-144 [facility] Comment on above: Order Comment: Speci men Type: BLOOD SPECIMEN Ordering Facility: [facility] Address: [address] [place] [address] Performed By: #### 5 5454-3 #### [facility] CLIA [id number] [address] [place] [address] [place] Urea nitrogen [Mass/Vol] 14 mg/dL Normal 9-24 [facility] Comment on above: Order Comment: Speci men Type: BLOOD SPECIMEN Ordering Facility: [facility] Address: [address] [place] [address] Performed By: #### 5 5454-3 #### [facility] CLIA [id number] [address] [place] [address] [place] CBC panel Auto (Bld)on 01-05 Erythrocyte distribution width (RBC) [Ratio] 12.4 % Normal 11.5-15.0 [facility] Comment on above: Order Comment: Speci men Type: BLOOD SPECIMEN Ordering Facility: [facility] Address: [address] [place] [address] Performed By: #### 5 5454-3 #### [facility] CLIA [id number] [address] [place] [address] [place] Hematocrit (Bld) [Volume fraction] 48.5 % Normal 39.0-51.0 [facility] Comment on above: Order Comment: Speci men Type: BLOOD SPECIMEN Ordering Facility: [facility] Address: [address] [place] [address] Performed By: #### 5 5454-3 #### [facility] CLIA [id number] [address] [place] [address] [place] Hemoglobin (Bld) [Mass/Vol] 16.0 g/dL Normal 13.0-17.0 [facility] Comment on above: Order Comment: Speci men Type: BLOOD SPECIMEN Ordering Facility: [facility] Address: [address] [place] [address] Performed By: #### 5 5454-3 #### [facility] CLIA [id number] [address] [place] [address] [place] MCH (RBC) [Entitic mass] 30.0 pg Normal 26.0-34.0 [facility] Comment on above: Order Comment: Speci men Type: BLOOD SPECIMEN Ordering Facility: [facility] Address: [address] [place] [address] Performed By: #### 5 5454-3 #### [facility] CLIA [id number] [address] [place] [address] [place] MCHC (RBC) [Mass/Vol] 33.0 g/dL Normal 30.5-36.0 [facility] Comment on above: Order Comment: Speci men Type: BLOOD SPECIMEN Ordering Facility: [facility] Address: [address] [place] [address] Performed By: #### 5 5454-3 #### [facility] CLIA [id number] [address] [place] [address] [place] MCV (RBC) [Entitic vol] 91.0 fL Normal 80.0-100.0 [facility] Comment on above: Order Comment: Speci men Type: BLOOD SPECIMEN Ordering Facility: [facility] Address: [address] [place] [address] Performed By: #### 5 5454-3 #### [facility] CLIA [id number] [address] [place] [address] [place] Platelet mean volume (Bld) [Entitic vol] 9.5 fL Normal 9.0-12.7 [facility] Comment on above: Order Comment: Speci men Type: BLOOD SPECIMEN Ordering Facility: [facility] Address: [address] [place] [address] Performed By: #### 5 5454-3 #### [facility] CLIA [id number] [address] [place] [address] [place] Platelets (Bld) [#/Vol] 236 10*3/uL Normal 150-400 [facility] Comment on above: Order Comment: Speci men Type: BLOOD SPECIMEN Ordering Facility: [facility] Address: [address] [place] [address] Performed By: #### 5 5454-3 #### [facility] CLIA [id number] [address] [place] [address] [place] RBC (Bld) [#/Vol] 5.33 10*6/uL Normal 4.20-6.00 [facility] Comment on above: Order Comment: Speci men Type: BLOOD SPECIMEN Ordering Facility: [facility] Address: [address] [place] [address] Performed By: #### 5 5454-3 #### [facility] CLIA [id number] [address] [place] [address] [place] WBC (Bld) [#/Vol] 8.15 10*3/uL Normal 3.70-11.00 [facility] Comment on above: Order Comment: Speci men Type: BLOOD SPECIMEN Ordering Facility: [facility] Address: [address] [place] [address] Performed By: #### 5 5454-3 #### [facility] CLIA [id number] [address] [place] [address] [place] Free PSA [Mass/Vol]on 2024 Free PSA/Total PSA [Mass fraction] 44 % Normal [facility] Comment on above: Order Comment: Speci men Type: BLOOD SPECIMEN Ordering Facility: [facility] Address: [address] [place] [address] Result Comment: Tota l and free PSA test methodology used is the Electrochemiluminescence Immunoassay by [employer]. Total or free PSA values by differing methodologies cannot be interchanged. The below table lists the probability of finding prostate cancer upon needle biopsy, for men 50 years or older and total PSA concentrations from 4.0-10.0 ng/mL. Results should be interpreted within the broader clinical context. Free PSA(%) 50-59 years 60-69 years >69 years <11 49.2% 57.5% 64.5% 11-18 26.9% 33.9% 40.8% 19-25 18.3% 23.9% 29.7% >25 9.1% 12.2% 15.8% Performed By: #### 1 0886-0 #### [facility] CLIA [id number] [address] [place] [address] [place] Prostate specific Ag [Mass/Vol] 2.37 ng/mL Normal <2.60 [facility] Comment on above: Order Comment: Speci men Type: BLOOD SPECIMEN Ordering Facility: [facility] Address: [address] [place] [address] Result Comment: Tota l PSA test methodology used is the Electrochemiluminescence Immunoassay by [employer]. Total PSA values by differing methodologies cannot be interchanged. Performed By: #### 1 0886-0 #### [facility] CLIA [id number] [address] [place] [address] [place] HbA1c (Bld)on 01-05-2025 Average glucose Estimated from glycated hemoglobin (Bld) [Mass/Vol] 174 mg/dL Normal [facility] Comment on above: Order Comment: Speci men Type: BLOOD SPECIMEN Ordering Facility: [facility] Address: [address] [place] [address] Result Comment: eAG: (Estimated average glucose) is a calculated value from HgbA1c and is surgical device sales representative of the average blood glucose level in the last 2-3 month period. Performed By: #### 5 5454-3 #### [facility] CLIA [id number] [address] [place] [address] [place] HbA1c (Bld) [Mass fraction] 7.7 % High 4.3-5.6 [facility] Comment on above: Order Comment: Luda nielsen Type: BLOOD SPECIMEN Ordering Facility: [facility] Address: [address] [place] [address] Result Comment: Amer ican Diabetes Association guidelines indicate that patients with HgbA1c in the range 5.7-6.4% are at increased risk for development of diabetes, and intervention by lifestyle modification may be beneficial. HgbA1c greater or equal to 6.5% is considered diagnostic of diabetes. Performed By: #### 5 5454-3 #### [facility] CLIA [id number] [address] [place] [address] [place] Lipid 1996 panelon 5 Cholesterol [Mass/Vol] 109 mg/dL Normal <200 [facility] Comment on above: Order Comment: Luda nielsen Type: BLOOD SPECIMEN Ordering Facility: [facility] Address: [address] [place] [address] Result Comment: <200 mg/dL, Desirable 200-239 mg/dL, Borderline high >239 mg/dL, High Performed By: #### 5 5454-3 #### [facility] CLIA [id number] [address] [place] [address] [place] Cholesterol in HDL [Mass/Vol] 33 mg/dL Low >39 [facility] Comment on above: Order Comment: Luda gia Type: BLOOD SPECIMEN Ordering Facility: [facility] Address: [address] [place] [address] Result Comment: 40-5 9 mg/dL, Acceptable >59 mg/dL, High: Negative risk factor for coronary heart disease <40 mg/dL, Low: Positive risk factor for coronary heart disease Performed By: #### 5 5454-3 #### [facility] CLIA [id number] [address] [place] [address] [place] Cholesterol in LDL [Mass/Vol] 51 mg/dL Normal <100 [facility] Comment on above: Order Comment: Luda nielsen Type: BLOOD SPECIMEN Ordering Facility: [facility] Address: [address] [place] [address] Result Comment: <100 mg/dL, Optimal 100-129 mg/dL, Near optimal/above optimal 130-159 mg/dL, Borderline high 160-189 mg/dL, High >189 mg/dL, Very high Secondary prevention optimal LDL Cholesterol levels are recommended to be <70 mg/dL LDL cholesterol is calculated using the Shirley-NIH equation. Performed By: #### 5 5454-3 #### [facility] CLIA [id number] [address] [place] [address] [place] Cholesterol in LDL/Cholesterol in HDL [Mass ratio] 1.55 {ratio} Normal <2.54 [facility] Comment on above: Order Comment: Luda nielsen Type: BLOOD SPECIMEN Ordering Facility: [facility] Address: [address] [place] [address] Result Comment: Crissy bill: 1. National Cholesterol Education Program ATP III Guideline At-A-Glance Quick Desk Reference: National Heart, Lung, and Blood [place]. National Institutes of Health. 2001: NIH Publication No. 01-3305. 2. An International Atherosclerosis Society position paper: global recommendations for the management of dyslipidemia: executive summary, Atherosclerosis. 2014: 232(2):410-413. Performed By: #### 5 5454-3 #### [facility] CLIA [id number] [address] [place] [address] [place] Cholesterol in VLDL [Mass/Vol] 20 mg/dL Normal <30 [facility] Comment on above: Order Comment: Luda nielsen Type: BLOOD SPECIMEN Ordering Facility: [facility] Address: [address] [place] [address] Performed By: #### 5 5454-3 #### [facility] CLIA [id number] [address] [place] [address] [place] Cholesterol non HDL [Mass/Vol] 76 mg/dL Normal <130 [facility] Comment on above: Order Comment: Speci men Type: BLOOD SPECIMEN Ordering Facility: [facility] Address: [address] [place] [address] Result Comment: <130 mg/dL, Optimal 130-159 mg/dL, Near optimal/above optimal 160-189 mg/dL, Borderline high 190-219 mg/dL, High >219 mg/dL, Very high Secondary prevention optimal non HDL Cholesterol levels are recommended to be <100 mg/dL Performed By: #### 5 5454-3 #### [facility] CLIA [id number] [address] [place] [address] [place] Cholesterol.total/Cho lesterol in HDL [Mass ratio] 3.30 {ratio} Normal <5.10 [facility] Comment on above: Order Comment: Rukhsanai men Type: BLOOD SPECIMEN Ordering Facility: [facility] Address: [address] [place] [address] Performed By: #### 5 5454-3 #### [facility] CLIA [id number] [address] [place] [address] [place] FASTING TIME 12 hrs Normal [facility] Comment on above: Order Comment: Rukhsanai men Type: BLOOD SPECIMEN Ordering Facility: [facility] Address: [address] [place] [address] Performed By: #### 5 5454-3 #### [facility] CLIA [id number] [address] [place] [address] [place] Triglyceride [Mass/Vol] 144 mg/dL Normal <150 [facility] Comment on above: Order Comment: Rukhsanai men Type: BLOOD SPECIMEN Ordering Facility: [facility] Address: [address] [place] [address] Result Comment: <150 mg/dL, Normal 150-199 mg/dL, Borderline high 200-499 mg/dL, High >499 mg/dL, Very high Performed By: #### 5 5454-3 #### [facility] CLIA [id number] [address] [place] [id number] [place] CNOVon 12-10-2024 CNOV Office Visit ([facility] ) ERIK CLARKE ([id number]) 1955 M Date Time Provider Department 12/10/24 7:00 AM DENIS RIVERO During your visit today, we recorded the following information about you: Temperature Pulse Respiration Blood pressure 97.3 degrees 83/minute 16/minute 119/69 Weight Height 85 kg 1.727 m Abril Child MA 12/10/2024 7:32 AM Signed Shingrix Vaccine(1 of 2) Never done RSV Vaccine(1 - Risk 60-74 years 1-dose series) Never done Medicare Annual Wellness Visit due on 11/15/2023 Urine Albumin:Creatinine Ratio due on 12/03/2024 LDL Cholesterol due on 12/03/2024 Depression Screening due on 12/05/2024 Anxiety Screening due on 12/05/2024 Denis Rivero MD 12/10/2024 7:32 AM Signed Erik Sepulveda Vince is a 69 year old male presenting for Medicare Wellness Exam Annual Wellness Exam: - No recent surgeries. - No known medical problems among siblings. - Denies smoking or alcohol use; uses chewing tobacco. - Denies drug use. - Has one daughter and one grandson. - Recent eye exam approximately six weeks ago; reports occasional blurry vision. - Hearing is reportedly good. - Denies neck pain, back pain, or joint pain. - Denies wheezing, coughing, or dyspnea. - Denies heartburn, belching, or bloating. - Regular bowel movements; occasional diarrhea or constipation. - Denies easy bleeding or bruising since discontinuing Brilinta in July. - Has dentures; reports issues with bottom dentures not fitting properly. Diabetes Mellitus: - Blood glucose levels average around 130 mg/dL postprandially. - Managed with TJO 40 units, Jardiance, metformin, and Mounjaro. - Follows up with [facility] for diabetes management. - Adheres to a healthy diet, monitoring sweets and carbohydrates. - Engages in regular exercise, walking approximately one mile daily. Benign Prostatic Hyperplasia: - Taking finasteride and tamsulosin; reports significant improvement in urinary symptoms. - Reduced nocturia and improved bladder emptying. Coronary Artery Disease: - Reports occasional dizziness; denies chest pain or palpitations. - Discontinued Brilinta in July; currently taking low-dose aspirin. - No recent home blood pressure monitoring. HISTORIES: PAST MEDICAL HISTORY Diagnosis Date BPH (benign prostatic hypertrophy) with urinary retention 01/22/2012 Bradycardia Coronary artery disease involving [place] coronary artery of [place] heart without angina pectoris 05/30/2019 History: s/p CATRACHITA. On Brilinta ED (erectile dysfunction) HOCM (hypertrophic obstructive cardiomyopathy) ([facility]) 05/15/2023 History: HOCM Hyperlipidemia LDL goal < 100 01/22/2012 Hypertension 01/22/2012 Nonrheumatic aortic (valve) stenosis 05/30/2019 History: Severe Obesity S/P AVR 09/18/2023 S/P myomectomy 09/18/2023 Status post insertion of drug eluting coronary artery stent 08/28/2022 Type 2 diabetes mellitus not at goal 01/22/2012 PAST SURGICAL HISTORY Procedure Laterality Date CARDIAC CATHETERIZATION HX 1999, 2004 no blockages, mildly leaky valve LEFT HEART CATH,PERCUTANEOUS 06/2022 stent placed PAST SURGICAL HISTORY OF 12/2015 L3-S1 laminectomy, decompression PAST SURGICAL HISTORY OF 01/16/2017 Lumbar reexploration L3-S1 with laminectomy and decompression FAMILY HISTORY Problem Relation Age of Onset Diabetes Mother Heart Father Diabetes Father Social History: SOCIAL HISTORY[1] Allergies: ALLERGIES Allergen Reactions Verapamil Other: See Comments Severe debilitating cluster headaches Medications: Insulin Verona, Disposable, (BD ULTRAFINE III MINI PEN) 31 gauge x 3/16 Use to inject insulin once daily chlorthalidone (HYGROTON) 25 mg tablet Take 1 tablet by mouth once daily. tirzepatide (MOUNJARO) 15 mg/0.5 mL pen injector Inject 15 mg subcutaneously one time a week. finasteride (PROSCAR) 5 mg tablet Take 1 tablet by mouth once daily. Lancets Use as instructed to check blood sugar twice daily (E11.9, Z79.4) blood sugar diagnostic (BLOOD GLUCOSE TEST) test strip Use as instructed to check blood sugar twice daily (E11.9, Z79.4) Blood-Glucose Meter Use to check blood sugar 2 times per day insulin glargine U-300 conc (TOUJEO SOLOSTAR U-300 INSULIN) 300 unit/mL (1.5 mL) Inject 40 Units subcutaneously once daily. tamsulosin (FLOMAX) 0.4 mg Take 1 capsule by mouth two times a day. Blood-Glucose Sensor (Anne Fogarty G7 SENSOR) yesenia APPLY NEW SENSOR EVERY 10 DAYS empagliflozin (JARDIANCE) 10 mg tablet Take 1 tablet by mouth daily with breakfast. metFORMIN ER (GLUCOPHAGE XR) 500 mg 24 hr tablet Take 2 tablets by mouth two times a day with meals. rosuvastatin (CRESTOR) 10 mg tablet Take 1 tablet by mouth every afternoon. carvedilol (COREG) 25 mg tablet Take 1 tablet by mouth two times a day. lisinopril (ZESTRIL) 40 mg tablet Take 1 tablet by mouth once daily. Blood Pressure Monitor U (more content not included)... [facility] ([id number]) 1955 M Date Time Provider Department 10/29/24 DENIS RIVERO During your visit today, we recorded the following information about you: Moira Okeefe MA 10/29/2024 12:08 PM Signed Received 10-29-24 from ness vail. Placed in provider's inbox for review. 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 - tirzepatide (MOUNJARO) 15 mg/0.5 mL pen injector Inject 15 mg subcutaneously one time a week. - finasteride (PROSCAR) 5 mg tablet Take 1 tablet by mouth once daily. - Lancets Use as instructed to check blood sugar twice daily (E11.9, Z79.4) - blood sugar diagnostic (BLOOD GLUCOSE TEST) test strip Use as instructed to check blood sugar twice daily (E11.9, Z79.4) - Blood-Glucose Meter Use to check blood sugar 2 times per day - insulin glargine U-300 conc (TOUJEO SOLOSTAR U-300 INSULIN) 300 unit/mL (1.5 mL) Inject 40 Units subcutaneously once daily. - tamsulosin (FLOMAX) 0.4 mg Take 1 capsule by mouth two times a day. - Blood-Glucose Sensor (DEXCOM G7 SENSOR) yesenia APPLY NEW SENSOR EVERY 10 DAYS - empagliflozin (JARDIANCE) 10 mg tablet Take 1 tablet by mouth daily with breakfast. - metFORMIN ER (GLUCOPHAGE XR) 500 mg 24 hr tablet Take 2 tablets by mouth two times a day with meals. - rosuvastatin (CRESTOR) 10 mg tablet Take 1 tablet by mouth every afternoon. - carvedilol (COREG) 25 mg tablet Take 1 tablet by mouth two times a day. - lisinopril (ZESTRIL) 40 mg tablet Take 1 tablet by mouth once daily. - ticagrelor (BRILINTA) 90 mg tablet Take 1 tablet by mouth two times a day. - Blood Pressure Monitor Use to monitor blood pressure - Blood-Glucose Meter,Continuous (DEXCOM G7 GENERATOR ASSEMBLER) [facility] Use continuously to monitor glucose, IDDM, E 11.7655 - aspirin, enteric coated (ECOTRIN LOW STRENGTH) 81 mg EC tablet Take 1 tablet by mouth once daily. 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 affecte*01/22/2012 Essential hypertension [I10] 01/22/2012 Hyperlipidemia [E78.5] 01/22/2012 Benign prostatic hyperplasia with lower urinary*01/22/2012 Colon polyps [K63.5] 07/15/2014 Other and unspecified angina pectoris [I20.9] 07/15/2014 10/12/2020 Erectile dysfunction [N52.9] 08/26/2014 Prolapsed lumbar disc [M51.26] 01/19/2017 Stable angina (HCC) [I20.89] 11/13/2017 Chewing tobacco nicotine dependence without com*08/27/2018 Lumbar spondylosis [M47.816] 08/27/2018 DDD (degenerative disc disease), lumbar [M51.36*08/27/2018 Lumbar radiculopathy [M54.16] 08/27/2018 Abnormal finding on echocardiogram [R93.1] 08/27/2018 10/12/2020 Heart murmur [R01.1] 08/27/2018 05/30/2019 Bradycardia [R00.1] 04/22/2019 08/17/2023 Nicotine use disorder, F17.2 [F17.200] 04/23/2019 Nonrheumatic aortic (valve) stenosis [I35.0] 05/30/2019 Coronary artery disease involving [place] martino*05/30/2019 Rotator cuff syndrome of left shoulder [M75.102]01/28/2020 Status post insertion of drug eluting coronary *08/28/2022 HOCM (hypertrophic obstructive cardiomyopathy) *05/15/2023 Discharge planning issues [Z75.8] 08/14/2023 Encounter for support and coordination of trans*08/14/2023 Post-op pain [G89.18] 08/16/2023 Hypovolemia [E86.1] 08/16/2023 Atelectasis [J98.11] 08/17/2023 Delirium [R41.0] 08/17/2023 Diabetes mellitus type 1, controlled, without c*08/18/2023 Hypervolemia [E87.70] 08/18/2023 S/P myomectomy [Z98.890] 09/18/2023 S/P AVR [Z95.2] 09/18/2023 Primary hypertension [I10] 09/18/2023 Elevated PSA [R97.20] 07/21/2024 Encounter Status:Closed by MOIRA OKEEFE on 10/29/[address] ([facility]) VINCEERIK ([id number]) 1955 M Date Time Provider Department 10/23/24 OPHELIA NULL During your visit today, we recorded the following information about you: Ophelia Null RPh 10/23/2024 2:17 PM Signed Patient called and LMOM for PharmD requesting refill for pen needles Patient's request for medication is as follows: Requested Prescriptions Signed Prescriptions Disp Refills Insulin [place], Disposable, (BD ULTRAFINE III MINI PEN) 31 gauge x 3/16 100 each 3 Sig: Use to inject insulin once daily Authorizing Provider: DENIS RIVERO Ordering User: OPHELIA NULL, ChasidyD, [facility] Primary [facility] Clinical Industrial Hygiene Manager Allergies As of Date: 10/23/2024 Noted Allergy Reaction VERAPAMIL 02/28/2024 14 - Other: See Comments Comments: Severe debilitating cluster headaches Date Reviewed: 10/21/2024 Reviewed by: Ophelia Null margaret - Fully Assessed Reason for Visit: Refill Request [94] Order(s):Order #: [id number] Prescriptions as of 10/23/2024 - Insulin [place], Disposable, (BD ULTRAFINE III MINI PEN) 31 gauge x 3/16 Use to inject insulin once daily - chlorthalidone (HYGROTON) 25 mg tablet Take 1 tablet by mouth once daily. - tirzepatide (MOUNJARO) 15 mg/0.5 mL pen injector Inject 15 mg subcutaneously one time a week. - finasteride (PROSCAR) 5 mg tablet Take 1 tablet by mouth once daily. - Lancets Use as instructed to check blood sugar twice daily (E11.9, Z79.4) - blood sugar diagnostic (BLOOD GLUCOSE TEST) test strip Use as instructed to check blood sugar twice daily (E11.9, Z79.4) - Blood-Glucose Meter Use to check blood sugar 2 times per day - insulin glargine U-300 conc (TOUJEO SOLOSTAR U-300 INSULIN) 300 unit/mL (1.5 mL) Inject 40 Units subcutaneously once daily. - tamsulosin (FLOMAX) 0.4 mg Take 1 capsule by mouth two times a day. - Blood-Glucose Sensor (DEXCOM G7 SENSOR) yesenia APPLY NEW SENSOR EVERY 10 DAYS - empagliflozin (JARDIANCE) 10 mg tablet Take 1 tablet by mouth daily with breakfast. - metFORMIN ER (GLUCOPHAGE XR) 500 mg 24 hr tablet Take 2 tablets by mouth two times a day with meals. - rosuvastatin (CRESTOR) 10 mg tablet Take 1 tablet by mouth every afternoon. - carvedilol (COREG) 25 mg tablet Take 1 tablet by mouth two times a day. - lisinopril (ZESTRIL) 40 mg tablet Take 1 tablet by mouth once daily. - ticagrelor (BRILINTA) 90 mg tablet Take 1 tablet by mouth two times a day. - Blood Pressure Monitor Use to monitor blood pressure - Blood-Glucose Meter,Continuous (DEXCOM G7 GENERATOR ASSEMBLER) [facility] [place] continuously to monitor glucose, IDDM, E 11.2551 - aspirin, enteric coated (ECOTRIN LOW STRENGTH) 81 mg EC tablet Take 1 tablet by mouth once daily. 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 affecte*01/22/2012 Essential hypertension [I10] 01/22/2012 Hyperlipidemia [E78.5] 01/22/2012 Benign prostatic hyperplasia with lower urinary*01/22/2012 Colon polyps [K63.5] 07/15/2014 Other and unspecified angina pectoris [I20.9] 07/15/2014 10/12/2020 Erectile dysfunction [N52.9] 08/26/2014 Prolapsed lumbar disc [M51.26] 01/19/2017 Stable angina (HCC) [I20.89] 11/13/2017 Chewing tobacco nicotine dependence without com*08/27/2018 Lumbar spondylosis [M47.816] 08/27/2018 DDD (degenerative disc disease), lumbar [M51.36*08/27/2018 Lumbar radiculopathy [M54.16] 08/27/2018 Abnormal finding on echocardiogram [R93.1] 08/27/2018 10/12/2020 Heart murmur [R01.1] 08/27/2018 05/30/2019 Bradycardia [R00.1] 04/22/2019 08/17/2023 Nicotine use disorder, F17.2 [F17.200] 04/23/2019 Nonrheumatic aortic (valve) stenosis [I35.0] 05/30/2019 Coronary artery disease involving [place] martino*05/30/2019 Rotator cuff syndrome of left shoulder [M75.102]01/28/2020 Status post insertion of drug eluting coronary *08/28/2022 HOCM (hypertrophic obstructive cardiomyopathy) *05/15/2023 Discharge planning issues [Z75.8] 08/14/2023 Encounter for support and coordination of trans*08/14/2023 Post-op pain [G89.18] 08/16/2023 Hypovolemia [E86.1] 08/16/2023 Atelectasis [J98.11] 08/17/2023 Delirium [R41.0] 08/17/2023 Diabetes mellitus type 1, controlled, without c*08/18/2023 Hypervolemia [E87.70] 08/18/2023 S/P myomectomy [Z98.890] 09/18/2023 S/P AVR [Z95.2] 09/18/2023 Primary hypertension [I10] 09/18/2023 Elevated PSA [R97.20] 07/21/2024 Prescriptions ordered this encounter Disp Refills Start End PEN NEEDLE, DIABETIC 31 GAUGE X 3/16 100 * 3 10/23/2024 Cmt: Please contact Ophelia Null PharmD at [phone] with any questions regarding this script. Sig: Use to inject insulin once daily Medications Discontinued During This Encounter Prescriptions - Insulin Verona, Disposable, (BD ULTRAFINE III MINI PEN) 31 gauge x 3/16 (Discontin (more content not included)... Normal [facility] CNOVon 10-21-2024 CNOV [facility] ) ERIK CLARKE ([id number]) 1955 M Date Time Provider Department 10/21/24 9:00 AM OPHELIA NLUL [facility] During your visit today, we recorded the following information about you: Ophelia Null RPh 10/21/2024 9:33 AM Signed Primary Care Pharmacy Visit CC (Reason for Consult): (E11.9, Z79.4) Type 2 diabetes mellitus without complication, with long-term current use of insulin (HCC) (primary encounter diagnosis) Goal(s): A1c <7% Last Collaborating Provider Visit: 06/05/[address] Mat Sepulveda Vince is a 68 year old male presenting for follow up visit in person. Patient consents to pharmacy collaborative practice agreement. Last Pharmacy Visit: 09/16/24 Interim Events: - 10/08/24 A1c results: 7.2% HPI: Reports doing well Tolerating Mounjaro well overall Noticed a change in BGs when he had started the 12.5 mg dose, notices a little higher readings by following Sunday/ when he's about due for the next week's dose Has been snacking in the middle of the night, had eric lagos last night States he has been taking a full tablet of chlorthalidone instead of a half tablet. Reports BP has been good at home. States he thinks he's been doing this for at least 3 months now Current DM Medications: Metformin ER 500 mg #2 twice daily Jardiance 10 mg once daily Mounjaro 12.5 mg once weekly on Fridays Toujeo 40 units once daily in evening Previously Trialed DM Meds: Glimepiride - changed to insulin Ariella Moser - can't remember why he stopped it Jardiance 25 mg - balanitis Diet Denies any recent changes BLOOD PRESSURE CONTROL: Home BPs in 120s/75 GLYCEMIC CONTROL: Glucometer present at visit: Yes Hypoglycemia: No CGM Data Past medical history reviewed. ALLERGIES Allergen Reactions Verapamil Other: See Comments Severe debilitating cluster headaches Current Outpatient Medications Medication Sig Dispense Refill finasteride (PROSCAR) 5 mg tablet Take 1 tablet by mouth once daily. 90 tablet 3 Lancets Use as instructed to check blood sugar twice daily (E11.9, Z79.4) 200 each 3 blood sugar diagnostic (BLOOD GLUCOSE TEST) test strip Use as instructed to check blood sugar twice daily (E11.9, Z79.4) 200 each 3 Blood-Glucose Meter Use to check blood sugar 2 times per day 1 Each 0 tirzepatide (MOUNJARO) 12.5 mg/0.5 mL pen injector Inject 12.5 mg subcutaneously one time a week. 6 mL 1 insulin glargine U-300 conc (TOUJEO SOLOSTAR U-300 INSULIN) 300 unit/mL (1.5 mL) Inject 40 Units subcutaneously once daily. 15 mL 3 tamsulosin (FLOMAX) 0.4 mg Take 1 capsule by mouth two times a day. 180 capsule 3 Blood-Glucose Sensor (DEXCOM G7 SENSOR) yesenia APPLY NEW SENSOR EVERY 10 DAYS 9 Each 4 empagliflozin (JARDIANCE) 10 mg tablet Take 1 tablet by mouth daily with breakfast. 90 tablet 3 Insulin Verona, Disposable, (BD ULTRAFINE III MINI PEN) 31 gauge x 3/16 Use to inject insulin once daily 100 Each 3 metFORMIN ER (GLUCOPHAGE XR) 500 mg 24 hr tablet Take 2 tablets by mouth two times a day with meals. 360 tablet 3 rosuvastatin (CRESTOR) 10 mg tablet Take 1 tablet by mouth every afternoon. 90 tablet 3 carvedilol (COREG) 25 mg tablet Take 1 tablet by mouth two times a day. 180 tablet 3 chlorthalidone (HYGROTON) 25 mg tablet Take 0.5 tablets by mouth once daily. 45 tablet 2 lisinopril (ZESTRIL) 40 mg tablet Take 1 tablet by mouth once daily. 90 tablet 3 ticagrelor (BRILINTA) 90 mg tablet Take 1 tablet by mouth two times a day. (Patient not taking: Reported on 10/08/2024) 180 tablet 3 Blood Pressure Monitor Use to monitor blood pressure 1 Each 0 Blood-Glucose Meter,Continuous (DEXCOM G7 GENERATOR ASSEMBLER) misc Use continuously to monitor glucose, IDDM, E 11.4246 aspirin, enteric coated (ECOTRIN LOW STRENGTH) 81 mg EC tablet Take 1 tablet by mouth once daily. No current facility-administered medications for this visit. Pill bottles are not present. Adherence: denies missed doses. Rx coverage: Payor: MEDICARE / Plan: MEDICARE A AND B / Product Type: Medicare / Medications affordable? Yes PHARMACOTHERAPY PREVENTATIVE MEDS: On MARY BETH/ARB: Yes On Statin: Yes On ASA: Yes EXAM: There were no vitals taken for this visit. Last 3 Encounter BP Readings: Date: BP: 08/28/2024 126/78 07/21/2024 138/83 06/24/2024 91/53 Wt: 86.2 kg (190 lb) BMI: 28.89 kg/(m2) LABS: Lab Results Component Value Date HBA1C 7.2 10/07/2024 HBA1C 7.5 06/16/2024 HBA1C 7.3 01/23/2024 HBA1C 7.9 12/13/2021 HBA1C 9.1 04/05/2020 HBA1C 9.0 11/03/2019 HBA1C 8.4 03/14/2019 HBA1C 8.0 08/24/2018 Glucose 157 06/16/2024 BUN 17 06/16/2024 Creatinine 0.81 06/16/2024 Sodium 143 06/16/2024 Potassium 4.1 06/16/2024 Chloride 104 06/16/2024 CO2 28 06/16/2024 Protein, Total 7.4 06/16/2024 Albumin 4.5 06/16/2024 Calcium 10.2 06/16/2024 Alkaline Phospha (more content not included)... Normal [facility] CNOVon 10-08-2024 CNOV Office Visit (UROLMD ) ERIK CLARKE ([id number]) 1955 M Date Time Provider Department 10/08/24 3:15 PM JUN GONCALVES During your visit today, we recorded the following information about you: Weight Height 86.2 kg 1.727 m Judi Gaffney LPN 11/16/2024 5:53 PM Signed Bladder scan obtained 290 ml of urine Jun Goncalves MD 11/16/2024 5:53 PM Signed going space this past 98 holding someone's face and so after that I last people have reached out to me asking for much of what still you know a lot of times you shinjose luislukasz [facility] UROLOGY ESTABLISHED PATIENT CLINIC NOTE UROL [facility] PATIENT INFO: Erik Clarke AGE: [age] year old PCP: Denis Rivero MD Referring provider: Stevie Montiel APRN.ANNIE.DNP IMPRESSION/PLAN: 1. Elevated PSA - ICD9: 790.93, ICD10: R97.20 (primary diagnosis) -Moderate elevation however patient has not had annual testing over the past 6 years until just recently. Recommend repeating tests in 4 months 2. Benign prostatic hyperplasia with incomplete bladder emptying - ICD9: 600.01, 788.21, ICD10: N40.1, R39.14 - Patient continues to be symptomatic despite being on tamsulosin. Mild degree of urinary retention. Will add finasteride 5 mg daily due to overall enlargement prostate and known symptoms. Hoping size reduction will reduce retention. 3. Screening for genitourinary condition - ICD9: V81.6, ICD10: Z13.89 REASON FOR VISIT: Follow up HPI: Erik Clarke returns for continuing evaluation and management. Previously under the care of urology ROUGHENER was recommended transfer of care to [place]. Elevated PSA: - Recent PSA levels: 4.66 (3 months ago), 4.68 (yesterday). - Previous PSA level 6 years ago was 2.32. - Under the care of urology; previously had hematuria, which resolved without a known cause. - History of a kidney stone in the left ureter, a thickened bladder, and an enlarged prostate. Underwent cystoscopy in April 2020. -Cysto in 2020, Trilobar hypertrophy - Currently taking tamsulosin BID since June, with slight improvement in urinary symptoms. - Denies any previous surgeries, including hernia repairs. INTERNATIONAL PROSTATE SYMPTOM SCORE (I-PSS) 1)INCOMPLETE EMPTYING Over the past month, how often have you had a sensation of not emptying your bladder completely after you finished urinating? SCORE: 3- About half the time 2)FREQUENCY Over the past month, how often have you had to urinate again less than two hours after you finished urinating? SCORE: 2- less than half the time 3)INTERMITTENCY Over the past month, how often have you found you stopped and started again several times when you urinated? SCORE: 2- less than half the time 4)URGENCY Over the past month, how often have you found it difficult to postpone urination? SCORE: 1- Less than 1 time in 5 5)WEAK STREAM Over the past month, how often have you had a weak stream? SCORE: 2- less than half the time 6)STRAINING Over the past month, how often have you had to push or strain to begin urination SCORE: 0- Not at all 7)NOCTURIA Over the past month, how many times did you most typically get up to urinate from the time you went to bed at night until the time you get up in the morning? SCORE:1 TOTAL I-PSS SCORE: 11 QUALITY OF LIFE DUE TO URINARY SYMPTOMS If you were to spend the rest of yur life with your urinary condition just the way it is now, how would you feel about that? 2- Mostly Satisfied UROLOGICAL DATA: Urinalysis: GLUCOSE UA (POCT) 500 10/08/2024 BILIRUBIN UA (POCT) Negative 10/08/2024 KETONE UA (POCT) Negative 10/08/2024 SPECIFIC GRAVITY UA (POCT) 1.015 10/08/2024 HEMOGLOBIN/BLOOD UA (POCT) Negative 10/08/2024 PH UA (POCT) 6.0 10/08/2024 PROTEIN UA (POCT) Negative 10/08/2024 UROBILINOGEN UA (POCT) 0.2 10/08/2024 NITRITE UA (POCT) Negative 10/08/2024 LEUKOCYTES UA (POCT) Negative 10/08/2024 COLOR UA (POCT) Yellow 10/08/2024 CLARITY UA (POCT) Clear 10/08/2024 Post Void Residual, Ultrasound: 290 cc, emptied well, emptying inadequetly OTHER DATA: PSA (ng/mL) Date Value 10/07/2024 4.68 04/21/2020 3.88 PSA Screening Date Value 06/16/2024 4.66 ng/mL 08/24/2017 2.32 ng/mL 01/22/2012 1.50 ng/mL 02/17/2009 1.3 NG/ML PSA, Percent Free (%) Date Value 10/07/2024 46 No results found for: ISOPSA Creatinine Date Value Ref Range Status 06/16/2024 0.81 0.73 - 1.22 mg/dL Final 01/23/2024 0.74 0.73 - 1.22 mg/dL Final 12/04/2023 0.69 (L) 0.73 - 1.22 mg/dL Final 11/18/2023 0.53 (L) 0.73 - 1.22 mg/dL Final Testosterone (ng/dL) Date Value 03/04/2022 277 SH: Current [place], [place] PMHx/PSHx: see above, otherwise unchanged Rx: reviewed and unchanged ROS: see above, otherwise unchanged Labs: None Imaging: None MEDICATIONS: Current Outpatient Medications Medication (more content not included)... Normal [facility] UA DIP, URINE (POC)on 2024 BILIRUBIN UA (POCT) Negative Negative [facility] CLARITY UA (POCT) Clear [facility] COLOR UA (POCT) Yellow [facility] GLUCOSE UA (POCT) 500 mg/dL Abnormal Negative [facility] Hemoglobin Ql (U) Negative Negative [facility] Interpretation and review of laboratory results Abnormal [facility] KETONE UA (POCT) Negative Negative mg/dL [facility] LEUKOCYTES UA (POCT) Negative Negative [facility] NITRITE UA (POCT) Negative [facility] PH UA (POCT) 6 4.5 - 8.0 [facility] Protein Ql (U) Negative Negative mg/dL [facility] SPECIFIC GRAVITY UA (POCT) 1.015 1.005 - 1.030 [facility] UROBILINOGEN UA (POCT) 0.2 Normal E.U./dL [facility] Location:[facility], [address] [place], [address] [facility] POINT OF CARE [facility] Free PSA [Mass/Vol]on 2024 Free PSA/Total PSA [Mass fraction] 46 % Normal [facility] Comment on above: Order Comment: Speci men Type: BLOOD SPECIMEN Ordering Facility: [facility] Address: [address] [place] [address] Result Comment: Tota l and free PSA test methodology used is the Electrochemiluminescence Immunoassay by [employer]. Total or free PSA values by differing methodologies cannot be interchanged. The below table lists the probability of finding prostate cancer upon needle biopsy, for men 50 years or older and total PSA concentrations from 4.0-10.0 ng/mL. Results should be interpreted within the broader clinical context. Free PSA(%) 50-59 years 60-69 years >69 years <11 49.2% 57.5% 64.5% 11-18 26.9% 33.9% 40.8% 19-25 18.3% 23.9% 29.7% >25 9.1% 12.2% 15.8% Performed By: #### 1 0886-0 #### [facility] CLIA [id number] [address] [place] [address] [place] Prostate specific Ag [Mass/Vol] 4.68 ng/mL High <2.60 [facility] Comment on above: Order Comment: Speci men Type: BLOOD SPECIMEN Ordering Facility: [facility] Address: [address] [place] [address] Result Comment: Tota l PSA test methodology used is the Electrochemiluminescence Immunoassay by [employer]. Total PSA values by differing methodologies cannot be interchanged. For an individual patient, the significance of a PSA level should be interpreted in a broad clinical context, including age, race, family history, digital rectal exam, prostate size, results of prior testing (prostate biopsy, free PSA, PCA3), and use of 5-alpha reductase inhibitors. Considering the high incidence of asymptomatic cancer in the general population that may not pose an ultimate risk to a patient, the decision to recommend urological evaluation or prostate biopsy should be individualized after consideration of all these factors. REFERENCE: Erin Sun M.D., M.P.H., Malick Elaine M.D., Ph.D., Pavan Hernández M.D., Miley Courtney M.P.H., Luz Sandoval Sc.D. Effect of Verification Bias on Screening for Prostate Cancer by Measurement of Prostatic Specific Antigen. N Engl J Med 2003,349:335-42. Performed By: #### 1 0886-0 #### [facility] [place] [id number] [address] [place] [address] [facility] HbA1c (Bld)on 10-07-2024 Average glucose Estimated from glycated hemoglobin (Bld) [Mass/Vol] 160 mg/dL Normal [facility] Comment on above: Order Comment: Speci men Type: BLOOD SPECIMEN Ordering Facility: [facility] Address: [address] [place] [address] Result Comment: eAG: (Estimated average glucose) is a calculated value from HgbA1c and is surgical device sales representative of the average blood glucose level in the last 2-3 month period. Performed By: #### 5 5454-3 #### [facility] IA [id number] [address] [place] [address] HbA1c (Bld) [Mass fraction] 7.2 % High 4.3-5.6 [facility] Comment on above: Order Comment: Speci men Type: BLOOD SPECIMEN Ordering Facility: [facility] Address: [address] [place] [address] Result Comment: Amer [place] Diabetes Association guidelines indicate that patients with HgbA1c in the range 5.7-6.4% are at increased risk for development of diabetes, and intervention by lifestyle modification may be beneficial. HgbA1c greater or equal to 6.5% is considered diagnostic of diabetes. Performed By: #### 5 5454-3 #### [facility] IA [id number] [address] [place], [place] [id number] [facility] CNOVon 09-16-2024 CNOV [facility] ERIK CLARKE ([id number]) 1955 M Date Time Provider Department 09/16/24 9:00 AM [facility] During your visit today, we recorded the following information about you: fErain Chun, formerly [facility] 09/16/2024 9:55 AM Signed Primary Care Pharmacy Visit CC (Reason for Consult): (E11.9, Z79.4) Type 2 diabetes mellitus without complication, with long-term current use of insulin ([facility]) (primary encounter diagnosis) Goal(s): A1c <7% Last Collaborating Provider Visit: 06/05/[address] Mat Valencia Coco Clarke is a 68 year old male presenting for follow up visit in person. Patient consents to pharmacy collaborative practice agreement. . Last Pharmacy Visit: 07/22/24 - Increased Mounjaro to 12.5 mg once weekly HPI: -Patient reports that he has received all supplies from [facility] -Patient reports that the increase in Mounjaro has been great and he feels his numbers have improved -Patient reports that things have been going great -Discussed increasing mounjaro at next visit and patient was agreeable but was hesitant this time because he just received all new supplies Current DM Medications: -Metformin ER 500 mg #2 twice daily -Jardiance 10 mg once daily -Mounjaro 12.5 mg once weekly on Fridays -Toujeo 40 units once daily Previously Trialed DM Meds: Glimepiride - changed to insulin Bylevar Moser - can't remember why he stopped it Jardiance 25mg - balanitis Diet -Diet has been good and consistent -Reports some weight loss GLYCEMIC CONTROL: Glucometer present at visit: No Hypoglycemia: No CGM Data Past medical history reviewed. ALLERGIES Allergen Reactions Verapamil Other: See Comments Severe debilitating cluster headaches Current Outpatient Medications Medication Sig Dispense Refill Lancets Use as instructed to check blood sugar twice daily (E11.9, Z79.4) 200 each 3 blood sugar diagnostic (BLOOD GLUCOSE TEST) test strip Use as instructed to check blood sugar twice daily (E11.9, Z79.4) 200 each 3 Blood-Glucose Meter Use to check blood sugar 2 times per day 1 Each 0 tirzepatide (MOUNJARO) 12.5 mg/0.5 mL pen injector Inject 12.5 mg subcutaneously one time a week. 6 mL 1 insulin glargine U-300 conc (TOUJEO SOLOSTAR U-300 INSULIN) 300 unit/mL (1.5 mL) Inject 40 Units subcutaneously once daily. 15 mL 3 tamsulosin (FLOMAX) 0.4 mg Take 1 capsule by mouth two times a day. 180 capsule 3 Blood-Glucose Sensor (DEXCOM G7 SENSOR) yesenia APPLY NEW SENSOR EVERY 10 DAYS 9 Each 4 empagliflozin (JARDIANCE) 10 mg tablet Take 1 tablet by mouth daily with breakfast. 90 tablet 3 Insulin [place], Disposable, (BD ULTRAFINE III MINI PEN) 31 gauge x 3/16 Use to inject insulin once daily 100 Each 3 metFORMIN ER (GLUCOPHAGE XR) 500 mg 24 hr tablet Take 2 tablets by mouth two times a day with meals. 360 tablet 3 rosuvastatin (CRESTOR) 10 mg tablet Take 1 tablet by mouth every afternoon. 90 tablet 3 carvedilol (COREG) 25 mg tablet Take 1 tablet by mouth two times a day. 180 tablet 3 chlorthalidone (HYGROTON) 25 mg tablet Take 0.5 tablets by mouth once daily. 45 tablet 2 lisinopril (ZESTRIL) 40 mg tablet Take 1 tablet by mouth once daily. 90 tablet 3 ticagrelor (BRILINTA) 90 mg tablet Take 1 tablet by mouth two times a day. 180 tablet 3 Blood Pressure Monitor Use to monitor blood pressure 1 Each 0 Blood-Glucose Meter,Continuous (DEXCOM G7 GENERATOR ASSEMBLER) [facility] Use continuously to monitor glucose, IDDM, E 11.3293 aspirin, enteric coated (ECOTRIN LOW STRENGTH) 81 mg EC tablet Take 1 tablet by mouth once daily. No current facility-administered medications for this visit. Pill bottles are not present. Adherence: denies missed doses. Rx coverage: Payor: MEDICARE / Plan: MEDICARE A AND B / Product Type: Medicare / Medications affordable? Yes PHARMACOTHERAPY PREVENTATIVE MEDS: On MARY BETH/ARB: Yes On Statin: Yes On ASA: Yes EXAM: There were no vitals taken for this visit. Last 3 Encounter BP Readings: Date: BP: 08/28/2024 126/78 07/21/2024 138/83 06/24/2024 91/53 Wt: 86 kg (189 lb 9.5 oz) BMI: 29.69 kg/(m2) LABS: Lab Results Component Value Date HBA1C 7.5 06/16/2024 HBA1C 7.3 01/23/2024 HBA1C 7.5 08/15/2023 HBA1C 7.9 12/13/2021 HBA1C 9.1 04/05/2020 HBA1C 9.0 11/03/2019 HBA1C 8.4 03/14/2019 HBA1C 8.0 08/24/2018 Glucose 157 06/16/2024 BUN 17 06/16/2024 Creatinine 0.81 06/16/2024 Sodium 143 06/16/2024 Potassium 4.1 06/16/2024 Chloride 104 06/16/2024 CO2 28 06/16/2024 Protein, Total 7.4 06/16/2024 Albumin 4.5 06/16/2024 Calcium 10.2 06/16/2024 Alkaline Phosphatase 47 06/16/2024 Bilirubin, Total 1.4 06/16/2024 AST 19 06/16/2024 ALT 20 06/16/2024 Lab Results Component Value Date CHOL 92 12/04/2023 CHOL 146 04/05/2020 LDL 8 12/04/2023 LDL 53 04/05/2020 HDL 33 12/04/2023 HDL 31 04/05/2020 TG 256 12/04/2023 TG 310 04/05 (more content not included)... Normal [facility] CNPKimberlyn 09-10-2024 CNPN Telephone (KAYLA) ERIK CLARKE ([id number]) 1955 M Date Time Provider Department 09/10/24 DENIS RIVERO During your visit today, we recorded the following information about you: Moira Okeefe MA 09/10/2024 4:35 PM Signed Type of letter/form/fax request - orders Form received from [facility] Placed on MD desk () for completion. Completed form needs to be faxed to [phone]. Route to [place] when form completed for processing Denis Rivero MD 09/11/2024 12:24 PM Signed Forms were signed and completed and placed in outbox I also included my most recent office note Placed in outbox Please fax back Moira Okeefe MA 09/11/2024 2:21 PM Signed Request completed and -[phone]. . Allergies As of Date: 09/10/2024 Noted Allergy Reaction VERAPAMIL 02/28/2024 14 - Other: See Comments Comments: Severe debilitating cluster headaches Date Reviewed: 08/28/2024 Reviewed by: Morgan Orozco LPN - Fully Assessed Reason for Visit: Orders [681] Prescriptions as of 09/11/2024 - Lancets Use as instructed to check blood sugar twice daily (E11.9, Z79.4) - blood sugar diagnostic (BLOOD GLUCOSE TEST) test strip Use as instructed to check blood sugar twice daily (E11.9, Z79.4) - Blood-Glucose Meter Use to check blood sugar 2 times per day - tirzepatide (MOUNJARO) 12.5 mg/0.5 mL pen injector Inject 12.5 mg subcutaneously one time a week. - insulin glargine U-300 conc (TOUJEO SOLOSTAR U-300 INSULIN) 300 unit/mL (1.5 mL) Inject 40 Units subcutaneously once daily. - tamsulosin (FLOMAX) 0.4 mg Take 1 capsule by mouth two times a day. - Blood-Glucose Sensor ([employer] G7 SENSOR) yesenia APPLY NEW SENSOR EVERY 10 DAYS - empagliflozin (JARDIANCE) 10 mg tablet Take 1 tablet by mouth daily with breakfast. - Insulin [place], Disposable, (BD ULTRAFINE III MINI PEN) 31 gauge x 3/16 Use to inject insulin once daily - metFORMIN ER (GLUCOPHAGE XR) 500 mg 24 hr tablet Take 2 tablets by mouth two times a day with meals. - rosuvastatin (CRESTOR) 10 mg tablet Take 1 tablet by mouth every afternoon. - carvedilol (COREG) 25 mg tablet Take 1 tablet by mouth two times a day. - chlorthalidone (HYGROTON) 25 mg tablet Take 0.5 tablets by mouth once daily. - lisinopril (ZESTRIL) 40 mg tablet Take 1 tablet by mouth once daily. - ticagrelor (BRILINTA) 90 mg tablet Take 1 tablet by mouth two times a day. - Blood Pressure Monitor Use to monitor blood pressure - Blood-Glucose Meter,Continuous (DEXCOM G7 GENERATOR ASSEMBLER) misc Use continuously to monitor glucose, IDDM, E 11.3293 - aspirin, enteric coated (ECOTRIN LOW STRENGTH) 81 mg EC tablet Take 1 tablet by mouth once daily. 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*01/22/2012 Essential hypertension [I10] 01/22/2012 Hyperlipidemia [E78.5] 01/22/2012 Benign prostatic hyperplasia with lower urinary*01/22/2012 Colon polyps [K63.5] 07/15/2014 Other and unspecified angina pectoris [I20.9] 07/15/2014 10/12/2020 Erectile dysfunction [N52.9] 08/26/2014 Prolapsed lumbar disc [M51.26] 01/19/2017 Stable angina (HCC) [I20.89] 11/13/2017 Chewing tobacco nicotine dependence without com*08/27/2018 Lumbar spondylosis [M47.816] 08/27/2018 DDD (degenerative disc disease), lumbar [M51.36*08/27/2018 Lumbar radiculopathy [M54.16] 08/27/2018 Abnormal finding on echocardiogram [R93.1] 08/27/2018 10/12/2020 Heart murmur [R01.1] 08/27/2018 05/30/2019 Bradycardia [R00.1] 04/22/2019 08/17/2023 Nicotine use disorder, F17.2 [F17.200] 04/23/2019 Nonrheumatic aortic (valve) stenosis [I35.0] 05/30/2019 Coronary artery disease involving [place]ino*05/30/2019 Rotator cuff syndrome of left shoulder [M75.102]01/28/2020 Status post insertion of drug eluting coronary *08/28/2022 HOCM (hypertrophic obstructive cardiomyopathy) *05/15/2023 Discharge planning issues [Z75.8] 08/14/2023 Encounter for support and coordination of trans*08/14/2023 Post-op pain [G89.18] 08/16/2023 Hypovolemia [E86.1] 08/16/2023 Atelectasis [J98.11] 08/17/2023 Delirium [R41.0] 08/17/2023 Diabetes mellitus type 1, controlled, without c*08/18/2023 Hypervolemia [E87.70] 08/18/2023 S/P myomectomy [Z98.890] 09/18/2023 S/P AVR [Z95.2] 09/18/2023 Primary hypertension [I10] 09/18/2023 Elevated PSA [R97.20] 07/21/2024 Encounter Status:Closed by MOIRA OKEEFE on 09/10/24 [facility] CNOVon 08-28-2024 CNOV Office Visit (CARDMM ) ERIK CLARKE ([id number]) 1955 M Date Time Provider Department 08/28/24 8:00 AM ANTOINETTE ALICEA During your visit today, we recorded the following information about you: Pulse Blood pressure Weight Height 79/minute 126/78 86 kg 1.702 m Antoinette Alicea APRN.ROUGHENER 08/29/2024 8:03 AM [facility] [place] John Espinoza Department of Cardiovascular Medicine SECTION OF CLINICAL CARDIOLOGY OUTPATIENT VISIT DATE August 28, 2024 OUTPATIENT VISIT TYPE ESTABLISHED PRIMARY CARE PHYSICIAN: Denis Rivero [address] [address] REFERRING PHYSICIAN: No referring provider defined for this encounter. CHIEF COMPLAINT: Follow Up (Follow up/GEORGES 02/28/24 William /ECHO 01/23/24/ZIO 01/08/24 /EKG 11/18/23 /Surgery 08/16/23 Myectomy / Valve Replacement) HISTORY OF PRESENT ILLNESS: Mr. Clarke is a 68 year old male with PMH of DM2, hypertension, hyperlipidemia, BPH, nonrheumatic aortic valve stenosis/status post AVR, CAD, HOCM/status post myomectomy, who presents today for a cardiovascular medicine follow-up visit after I saw him in January. At that time we ordered an echo to be updated. We will review that today.. Bp at home is good. He denies shortness of breath, chest pain, palpitations, dizziness, lightheadedness, lower extremity edema, PND, orthopnea, presyncope, syncope, or claudication symptoms Subjective PAST MEDICAL HISTORY Diagnosis Date BPH (benign prostatic hypertrophy) with urinary retention 01/22/2012 Bradycardia Coronary artery disease involving [place] coronary artery of [place] heart without angina pectoris 05/30/2019 History: s/p CATRACHITA. On Brilinta ED (erectile dysfunction) HOCM (hypertrophic obstructive cardiomyopathy) ([facility]) 05/15/2023 History: HOCM Hyperlipidemia LDL goal < 100 01/22/2012 Hypertension 01/22/2012 Nonrheumatic aortic (valve) stenosis 05/30/2019 History: Severe Obesity S/P AVR 09/18/2023 S/P myomectomy 09/18/2023 Status post insertion of drug eluting coronary artery stent 08/28/2022 Type 2 diabetes mellitus not at goal 01/22/2012 PAST SURGICAL HISTORY Procedure Laterality Date CARDIAC CATHETERIZATION HX 1999, 2004 no blockages, mildly leaky valve LEFT HEART CATH,PERCUTANEOUS 06/2022 stent placed PAST SURGICAL HISTORY OF 12/2015 L3-S1 laminectomy, decompression PAST SURGICAL HISTORY OF 01/16/2017 Lumbar reexploration L3-S1 with laminectomy and decompression Social History Tobacco Use Smoking status: Former Current packs/day: 0.00 Types: Cigarettes Quit date: 01/21/2010 Years since quittin.6 Passive exposure: Never Smokeless tobacco: Current Types: Chew Tobacco comments: Patient states he has been chewing since he was younger - about a half can. Patient states it is the pouch type. Vaping Use Vaping status: Never Used Substance Use Topics Alcohol use: No Drug use: No FAMILY HISTORY Problem Relation Age of Onset Diabetes Mother Heart Father Diabetes Father ALLERGIES: ALLERGIES Allergen Reactions Verapamil Other: See Comments Severe debilitating cluster headaches MEDICATIONS: Lancets Use as instructed to check blood sugar twice daily (E11.9, Z79.4) blood sugar diagnostic (BLOOD GLUCOSE TEST) test strip Use as instructed to check blood sugar twice daily (E11.9, Z79.4) Blood-Glucose Meter Use to check blood sugar 2 times per day tirzepatide (MOUNJARO) 12.5 mg/0.5 mL pen injector Inject 12.5 mg subcutaneously one time a week. insulin glargine U-300 conc (TOUJEO SOLOSTAR U-300 INSULIN) 300 unit/mL (1.5 mL) Inject 40 Units subcutaneously once daily. tamsulosin (FLOMAX) 0.4 mg Take 1 capsule by mouth two times a day. Blood-Glucose Sensor (DEXCOM G7 SENSOR) yesenia APPLY NEW SENSOR EVERY 10 DAYS empagliflozin (JARDIANCE) 10 mg tablet Take 1 tablet by mouth daily with breakfast. Insulin [place], Disposable, (BD ULTRAFINE III MINI PEN) 31 gauge x 3/16 Use to inject insulin once daily metFORMIN ER (GLUCOPHAGE XR) 500 mg 24 hr tablet Take 2 tablets by mouth two times a day with meals. rosuvastatin (CRESTOR) 10 mg tablet Take 1 tablet by mouth every afternoon. carvedilol (COREG) 25 mg tablet Take 1 tablet by mouth two times a day. chlorthalidone (HYGROTON) 25 mg tablet Take 0.5 tablets by mouth once daily. lisinopril (ZESTRIL) 40 mg tablet Take 1 tablet by mouth once daily. ticagrelor (BRILINTA) 90 mg tablet Take 1 tablet by mouth two times a day. potassium chloride ER (KLOR-CON) 20 mEq tablet Take 1 tablet by mouth once daily. Blood Pressure Monitor Use to monitor blood pressure Blood-Glucose Meter,Continuous (DEXCOM G7 GENERATOR ASSEMBLER) [facility] continuously to monitor glucose, IDDM, E 11.3293 aspirin, enteric coated (ECOTRIN LOW STRENGTH) 81 mg EC tablet Take 1 tablet by mouth once daily. (more content not included)... Normal [facility] Jose Miguel 07-24-2024 SHAKILA Telephone ([facility]) VINCEVERONICAS Coco ([id number]) 1955 Date Time Provider Department 07/24/24 OPHELIA NULL During your visit today, we recorded the following information about you: Antoinette Sanchez 07/24/2024 9:42 AM Signed [facility] Pharmacy is calling regarding the scripts for the test strips and lancets. Patient has Medicare B insurance and they require an ICD-10 code on the actual scripts. Please update and resend. Ophelia Null RPh 07/24/2024 12:40 PM Signed Rx resent with diagnosis code attached. Patient's request for medication is as follows: Requested Prescriptions Signed Prescriptions Disp Refills Lancets 200 each 3 Sig: Use as instructed to check blood sugar twice daily (E11.9, Z79.4) Authorizing Provider: DENIS RIVERO Ordering User: OPHELIA NULL blood sugar diagnostic (BLOOD GLUCOSE TEST) test strip 200 each 3 Sig: Use as instructed to check blood sugar twice daily (E11.9, Z79.4) Authorizing Provider: DENIS RIVERO Ordering User: OPHELIA NULL, PharmD, BCACP Primary Care Clinical Industrial Hygiene Manager Allergies As of Date: 07/24/2024 Noted Allergy Reaction VERAPAMIL 02/28/2024 14 - Other: See Comments Comments: Severe debilitating cluster headaches Date Reviewed: 07/22/2024 Reviewed by: Ophelia Null RPh - Fully Assessed Reason for Visit: ICD-10 codes for Rx [Other] Cmt: Test strips/ lancets Order(s):Order #: [id number] Order #: [id number] Prescriptions as of 07/24/2024 - Lancets Use as instructed to check blood sugar twice daily (E11.9, Z79.4) - blood sugar diagnostic (BLOOD GLUCOSE TEST) test strip Use as instructed to check blood sugar twice daily (E11.9, Z79.4) - Blood-Glucose Meter Use to check blood sugar 2 times per day - tirzepatide (MOUNJARO) 12.5 mg/0.5 mL pen injector Inject 12.5 mg subcutaneously one time a week. - insulin glargine U-300 conc (TOUJEO SOLOSTAR U-300 INSULIN) 300 unit/mL (1.5 mL) Inject 40 Units subcutaneously once daily. - tamsulosin (FLOMAX) 0.4 mg Take 1 capsule by mouth two times a day. - Blood-Glucose Sensor (DEXCOM G7 SENSOR) yesenia APPLY NEW SENSOR EVERY 10 DAYS - empagliflozin (JARDIANCE) 10 mg tablet Take 1 tablet by mouth daily with breakfast. - Insulin [place], Disposable, (BD ULTRAFINE III MINI PEN) 31 gauge x 3/16 Use to inject insulin once daily - metFORMIN ER (GLUCOPHAGE XR) 500 mg 24 hr tablet Take 2 tablets by mouth two times a day with meals. - rosuvastatin (CRESTOR) 10 mg tablet Take 1 tablet by mouth every afternoon. - carvedilol (COREG) 25 mg tablet Take 1 tablet by mouth two times a day. - chlorthalidone (HYGROTON) 25 mg tablet Take 0.5 tablets by mouth once daily. - lisinopril (ZESTRIL) 40 mg tablet Take 1 tablet by mouth once daily. - ticagrelor (BRILINTA) 90 mg tablet Take 1 tablet by mouth two times a day. - potassium chloride ER (KLOR-CON) 20 mEq tablet Take 1 tablet by mouth once daily. - Blood Pressure Monitor Use to monitor blood pressure - Blood-Glucose Meter,Continuous (DEXCOM G7 GENERATOR ASSEMBLER) misc Use continuously to monitor glucose, IDDM, E 11.3293 - aspirin, enteric coated (ECOTRIN LOW STRENGTH) 81 mg EC tablet Take 1 tablet by mouth once daily. 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*01/22/2012 Essential hypertension [I10] 01/22/2012 Hyperlipidemia [E78.5] 01/22/2012 Benign prostatic hyperplasia with lower urinary*01/22/2012 Colon polyps [K63.5] 07/15/2014 Other and unspecified angina pectoris [I20.9] 07/15/2014 10/12/2020 Erectile dysfunction [N52.9] 08/26/2014 Prolapsed lumbar disc [M51.26] 01/19/2017 Stable angina (HCC) [I20.89] 11/13/2017 Chewing tobacco nicotine dependence without com*08/27/2018 Lumbar spondylosis [M47.816] 08/27/2018 DDD (degenerative disc disease), lumbar [M51.36*08/27/2018 Lumbar radiculopathy [M54.16] 08/27/2018 Abnormal finding on echocardiogram [R93.1] 08/27/2018 10/12/2020 Heart murmur [R01.1] 08/27/2018 05/30/2019 Bradycardia [R00.1] 04/22/2019 08/17/2023 Nicotine use disorder, F17.2 [F17.200] 04/23/2019 Nonrheumatic aortic (valve) stenosis [I35.0] 05/30/2019 Coronary artery disease involving [place]*05/30/2019 Rotator cuff syndrome of left shoulder [M75.102]01/28/2020 Status post insertion of drug eluting coronary *08/28/2022 HOCM (hypertrophic obstructive cardiomyopathy) *05/15/2023 Discharge planning issues [Z75.8] 08/14/2023 Encounter for support and coordination of trans*08/14/2023 Post-op pain [G89.18] 08/16/2023 Hypovolemia [E86.1] 08/16/2023 Atelectasis [J98.11] 08/17/2023 Delirium [R41.0] 08/17/2023 Diabetes mellitus type 1, controlled, without c*08/18/2023 Hypervolemia [E87.70] 08/18/2023 S/P myomectomy [Z98.890] 09/18/2023 S/P AVR [Z95.2] 09/18/2023 Primary hypertension [ (more content not included)... Normal [facility] CNPN Telephone ([facility]) ERIK CLARKE ([id number]) 1955 M Date Time Provider Department 4/3/25 DENIS RIVERO During your visit today, we recorded the following information about you: Allergies As of Date: 07/24/2024 Noted Allergy Reaction VERAPAMIL 02/28/2024 14 - Other: See Comments Comments: Severe debilitating cluster headaches Date Reviewed: 07/22/2024 Reviewed by: Ophelia Null formerly [facility] - Fully Assessed Prescriptions as of 07/24/2024 - blood sugar diagnostic (BLOOD GLUCOSE TEST) test strip Use as instructed to check blood sugar twice daily - Blood-Glucose Meter Use to check blood sugar 2 times per day - Lancets Use as instructed to check blood sugar twice daily - tirzepatide (MOUNJARO) 12.5 mg/0.5 mL pen injector Inject 12.5 mg subcutaneously one time a week. - insulin glargine U-300 conc (TOUJEO SOLOSTAR U-300 INSULIN) 300 unit/mL (1.5 mL) Inject 40 Units subcutaneously once daily. - tamsulosin (FLOMAX) 0.4 mg Take 1 capsule by mouth two times a day. - Blood-Glucose Sensor (DEXCOM G7 SENSOR) yes[place] APPLY NEW SENSOR EVERY 10 DAYS - empagliflozin (JARDIANCE) 10 mg tablet Take 1 tablet by mouth daily with breakfast. - Insulin [place], Disposable, (BD ULTRAFINE III MINI PEN) 31 gauge x 3/16 Use to inject insulin once daily - metFORMIN ER (GLUCOPHAGE XR) 500 mg 24 hr tablet Take 2 tablets by mouth two times a day with meals. - rosuvastatin (CRESTOR) 10 mg tablet Take 1 tablet by mouth every afternoon. - carvedilol (COREG) 25 mg tablet Take 1 tablet by mouth two times a day. - chlorthalidone (HYGROTON) 25 mg tablet Take 0.5 tablets by mouth once daily. - lisinopril (ZESTRIL) 40 mg tablet Take 1 tablet by mouth once daily. - ticagrelor (BRILINTA) 90 mg tablet Take 1 tablet by mouth two times a day. - potassium chloride ER (KLOR-CON) 20 mEq tablet Take 1 tablet by mouth once daily. - Blood Pressure Monitor Use to monitor blood pressure - Blood-Glucose Meter,Continuous (DEXCOM G7 GENERATOR ASSEMBLER) [facility] [place] to monitor glucose, IDDM, E 11.3293 - aspirin, enteric coated (ECOTRIN LOW STRENGTH) 81 mg EC tablet Take 1 tablet by mouth once daily. 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*01/22/2012 Essential hypertension [I10] 01/22/2012 Hyperlipidemia [E78.5] 01/22/2012 Benign prostatic hyperplasia with lower urinary*01/22/2012 Colon polyps [K63.5] 07/15/2014 Other and unspecified angina pectoris [I20.9] 07/15/2014 10/12/2020 Erectile dysfunction [N52.9] 08/26/2014 Prolapsed lumbar disc [M51.26] 01/19/2017 Stable angina (HCC) [I20.89] 11/13/2017 Chewing tobacco nicotine dependence without com*08/27/2018 Lumbar spondylosis [M47.816] 08/27/2018 DDD (degenerative disc disease), lumbar [M51.36*08/27/2018 Lumbar radiculopathy [M54.16] 08/27/2018 Abnormal finding on echocardiogram [R93.1] 08/27/2018 10/12/2020 Heart murmur [R01.1] 08/27/2018 05/30/2019 Bradycardia [R00.1] 04/22/2019 08/17/2023 Nicotine use disorder, F17.2 [F17.200] 04/23/2019 Nonrheumatic aortic (valve) stenosis [I35.0] 05/30/2019 Coronary artery disease involving [place]*05/30/2019 Rotator cuff syndrome of left shoulder [M75.102]01/28/2020 Status post insertion of drug eluting coronary *08/28/2022 HOCM (hypertrophic obstructive cardiomyopathy) *05/15/2023 Discharge planning issues [Z75.8] 08/14/2023 Encounter for support and coordination of trans*08/14/2023 Post-op pain [G89.18] 08/16/2023 Hypovolemia [E86.1] 08/16/2023 Atelectasis [J98.11] 08/17/2023 Delirium [R41.0] 08/17/2023 Diabetes mellitus type 1, controlled, without c*08/18/2023 Hypervolemia [E87.70] 08/18/2023 S/P myomectomy [Z98.890] 09/18/2023 S/P AVR [Z95.2] 09/18/2023 Primary hypertension [I10] 09/18/2023 Elevated PSA [R97.20] 07/21/2024 Encounter Status:Closed by ANTOINETTE SANCHEZ on 07/24/24 [facility] CNPNon 07-23-2024 CNPN Telephone [facility] ERIK CLARKE ([id number]) 1955 M Date Time Provider Department 07/23/24 OPHELIA NULL [facility] During your visit today, we recorded the following information about you: Ophelia Null RPh 07/23/2024 9:24 AM Signed Contacted rep at [facility] to check status of CGM order given patient reported still not received/needs additional information. Per [facility], order is in final approval step and should be shipped out in the next 24 hours; no additional information needed from office for order. Ophelia Null PharmD, VESTA Primary Care Clinical Industrial Hygiene Manager Ophelia Null RPh 07/25/2024 3:28 PM Signed Update from [facility] Medical rep regarding Dexcom order: Dexcom G7 Sensors shipped and are expected to be delivered on Sunday, 07/28, via [facility] TRACKING #: [id number] Ophelia Null PharmD, [place]STA Primary Care Clinical Industrial Hygiene Manager Allergies As of Date: 07/23/2024 Noted Allergy Reaction VERAPAMIL 02/28/2024 14 - Other: See Comments Comments: Severe debilitating cluster headaches Date Reviewed: 07/22/2024 Reviewed by: Ophelia Null RPh - Fully Assessed Reason for Visit: Medication Update [1676] Cmt: Dexcom G7 - [facility] Medical Prescriptions as of 07/25/2024 - Lancets Use as instructed to check blood sugar twice daily (E11.9, Z79.4) - blood sugar diagnostic (BLOOD GLUCOSE TEST) test strip Use as instructed to check blood sugar twice daily (E11.9, Z79.4) - Blood-Glucose Meter Use to check blood sugar 2 times per day - tirzepatide (MOUNJARO) 12.5 mg/0.5 mL pen injector Inject 12.5 mg subcutaneously one time a week. - insulin glargine U-300 conc (TOUJEO SOLOSTAR U-300 INSULIN) 300 unit/mL (1.5 mL) Inject 40 Units subcutaneously once daily. - tamsulosin (FLOMAX) 0.4 mg Take 1 capsule by mouth two times a day. - Blood-Glucose Sensor (DEXCOM G7 SENSOR) yesenia APPLY NEW SENSOR EVERY 10 DAYS - empagliflozin (JARDIANCE) 10 mg tablet Take 1 tablet by mouth daily with breakfast. - Insulin [place], Disposable, (BD ULTRAFINE III MINI PEN) 31 gauge x 3/16 Use to inject insulin once daily - metFORMIN ER (GLUCOPHAGE XR) 500 mg 24 hr tablet Take 2 tablets by mouth two times a day with meals. - rosuvastatin (CRESTOR) 10 mg tablet Take 1 tablet by mouth every afternoon. - carvedilol (COREG) 25 mg tablet Take 1 tablet by mouth two times a day. - chlorthalidone (HYGROTON) 25 mg tablet Take 0.5 tablets by mouth once daily. - lisinopril (ZESTRIL) 40 mg tablet Take 1 tablet by mouth once daily. - ticagrelor (BRILINTA) 90 mg tablet Take 1 tablet by mouth two times a day. - potassium chloride ER (KLOR-CON) 20 mEq tablet Take 1 tablet by mouth once daily. - Blood Pressure Monitor Use to monitor blood pressure - Blood-Glucose Meter,Continuous (DEXCOM G7 GENERATOR ASSEMBLER) [facility] [place] continuously to monitor glucose, IDDM, E 11.3293 - aspirin, enteric coated (ECOTRIN LOW STRENGTH) 81 mg EC tablet Take 1 tablet by mouth once daily. 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*01/22/2012 Essential hypertension [I10] 01/22/2012 Hyperlipidemia [E78.5] 01/22/2012 Benign prostatic hyperplasia with lower urinary*01/22/2012 Colon polyps [K63.5] 07/15/2014 Other and unspecified angina pectoris [I20.9] 07/15/2014 10/12/2020 Erectile dysfunction [N52.9] 08/26/2014 Prolapsed lumbar disc [M51.26] 01/19/2017 Stable angina (HCC) [I20.89] 11/13/2017 Chewing tobacco nicotine dependence without com*08/27/2018 Lumbar spondylosis [M47.816] 08/27/2018 DDD (degenerative disc disease), lumbar [M51.36*08/27/2018 Lumbar radiculopathy [M54.16] 08/27/2018 Abnormal finding on echocardiogram [R93.1] 08/27/2018 10/12/2020 Heart murmur [R01.1] 08/27/2018 05/30/2019 Bradycardia [R00.1] 04/22/2019 08/17/2023 Nicotine use disorder, F17.2 [F17.200] 04/23/2019 Nonrheumatic aortic (valve) stenosis [I35.0] 05/30/2019 Coronary artery disease involving [place]*05/30/2019 Rotator cuff syndrome of left shoulder [M75.102]01/28/2020 Status post insertion of drug eluting coronary *08/28/2022 HOCM (hypertrophic obstructive cardiomyopathy) *05/15/2023 Discharge planning issues [Z75.8] 08/14/2023 Encounter for support and coordination of trans*08/14/2023 Post-op pain [G89.18] 08/16/2023 Hypovolemia [E86.1] 08/16/2023 Atelectasis [J98.11] 08/17/2023 Delirium [R41.0] 08/17/2023 Diabetes mellitus type 1, controlled, without c*08/18/2023 Hypervolemia [E87.70] 08/18/2023 S/P myomectomy [Z98.890] 09/18/2023 S/P AVR [Z95.2] 09/18/2023 Primary hypertension [I10] 09/18/2023 Elevated PSA [R97.20] 07/21/2024 Encounter Status:Closed by OPHELIA NULL on 07/23/24 [facility] CNOVon 07-22-2024 CNOV Office Visit ([facility] ) SHARMILAWenERIK Sepulveda ([id number]) 1955 M Date Time Provider Department 07/22/24 9:00 AM OPHELIA NULL [facility] During your visit today, we recorded the following information about you: Ophelia Null formerly [facility] 07/22/2024 4:37 PM Signed Primary Care Pharmacy Visit CC (Reason for Consult): (E11.9, Z79.4) Type 2 diabetes mellitus without complication, with long-term current use of insulin ([facility]) (primary encounter diagnosis) Goal(s): A1c <7% Last Collaborating Provider Visit: 06/05/[address] aMt Sepulveda Vince is a 68 year old male presenting for follow up visit in person. Patient consents to pharmacy collaborative practice agreement. Last Pharmacy Visit: 06/17/24 HPI: Reports doing well States BGs have been going up and down Spoke with [facility] Medical yesterday, and was told they needed something completed from the office Still has not gotten new Dexcom sensors yet, will need test strips Has 3 pens of Mounjaro 10 mg left Has not been exercising like before Current DM Medications: Metformin ER 500 mg #2 twice daily Jardiance 10 mg once daily Mounjaro 10 mg once weekly on Fridays Toujeo 38 units once daily - taking 40 units once daily Previously Trialed DM Meds: Glimepiride - changed to insulin Ariella Moser - can't remember why he stopped it Jardiance 25mg - balanitis Diet Denies any recent changes GLYCEMIC CONTROL: Glucometer present at visit: Yes Hypoglycemia: No CGM Data Past medical history reviewed. ALLERGIES Allergen Reactions Verapamil Other: See Comments Severe debilitating cluster headaches Current Outpatient Medications Medication Sig Dispense Refill tamsulosin (FLOMAX) 0.4 mg Take 1 capsule by mouth two times a day. 180 capsule 3 Blood-Glucose Sensor (DEXCOM G7 SENSOR) yesenia APPLY NEW SENSOR EVERY 10 DAYS 9 Each 4 tirzepatide (MOUNJARO) 10 mg/0.5 mL pen injector Inject 10 mg subcutaneously one time a week. 6 mL 4 empagliflozin (JARDIANCE) 10 mg tablet Take 1 tablet by mouth daily with breakfast. 90 tablet 3 insulin glargine U-300 conc (TOUJEO SOLOSTAR U-300 INSULIN) 300 unit/mL (1.5 mL) Inject 38 Units subcutaneously once daily. 15 mL 3 Insulin [place], Disposable, (BD ULTRAFINE III MINI PEN) 31 gauge x 3/16 Use to inject insulin once daily 100 Each 3 metFORMIN ER (GLUCOPHAGE XR) 500 mg 24 hr tablet Take 2 tablets by mouth two times a day with meals. 360 tablet 3 rosuvastatin (CRESTOR) 10 mg tablet Take 1 tablet by mouth every afternoon. 90 tablet 3 carvedilol (COREG) 25 mg tablet Take 1 tablet by mouth two times a day. 180 tablet 3 chlorthalidone (HYGROTON) 25 mg tablet Take 0.5 tablets by mouth once daily. 45 tablet 2 lisinopril (ZESTRIL) 40 mg tablet Take 1 tablet by mouth once daily. 90 tablet 3 ticagrelor (BRILINTA) 90 mg tablet Take 1 tablet by mouth two times a day. 180 tablet 3 potassium chloride ER (KLOR-CON) 20 mEq tablet Take 1 tablet by mouth once daily. 5 tablet 0 Lancets Use as instructed to check blood sugar twice daily 200 Each 3 blood sugar diagnostic (BLOOD GLUCOSE TEST) test strip Use as instructed to check blood sugar twice daily 200 Each 3 Blood-Glucose Meter Use to check blood sugar 2 times per day 1 Each 0 Blood Pressure Monitor Use to monitor blood pressure 1 Each 0 Blood-Glucose Meter,Continuous (DEXCOM G7 GENERATOR ASSEMBLER) [facility] continuously to monitor glucose, IDDM, E 11.3293 aspirin, enteric coated (ECOTRIN LOW STRENGTH) 81 mg EC tablet Take 1 tablet by mouth once daily. No current facility-administered medications for this visit. Pill bottles are not present. Adherence: denies missed doses. Rx coverage: Payor: MEDICARE / Plan: MEDICARE A AND B / Product Type: Medicare / Medications affordable? Yes PHARMACOTHERAPY PREVENTATIVE MEDS: On MARY BETH/ARB: Yes On Statin: Yes On ASA: Yes EXAM: There were no vitals taken for this visit. Last 3 Encounter BP Readings: Date: BP: 07/21/2024 138/83 06/24/2024 91/53 06/05/2024 137/73 Wt: 88 kg (194 lb) BMI: 30.38 kg/(m2) LABS: Lab Results Component Value Date HBA1C 7.5 06/16/2024 HBA1C 7.3 01/23/2024 HBA1C 7.5 08/15/2023 HBA1C 7.9 12/13/2021 HBA1C 9.1 04/05/2020 HBA1C 9.0 11/03/2019 HBA1C 8.4 03/14/2019 HBA1C 8.0 08/24/2018 Glucose 157 06/16/2024 BUN 17 06/16/2024 Creatinine 0.81 06/16/2024 Sodium 143 06/16/2024 Potassium 4.1 06/16/2024 Chloride 104 06/16/2024 CO2 28 06/16/2024 Protein, Total 7.4 06/16/2024 Albumin 4.5 06/16/2024 Calcium 10.2 06/16/2024 Alkaline Phosphatase 47 06/16/2024 Bilirubin, Total 1.4 06/16/2024 AST 19 06/16/2024 ALT 20 06/16/2024 Lab Results Component Value Date CHOL 92 12/04/2023 CHOL 146 04/05/2020 LDL 8 12/04/2023 LDL 53 04/05/2020 HDL 33 12/04/2023 HDL 31 04/05/2020 TG 256 12/04/2023 TG 310 04/05/2020 Albumin/Creat Ratio (mg/g) Date Value 12/04/2023 134 (more content not included)... Normal [facility] CNOVon 07-21-2024 CNOV Office Visit ([facility] ) ERIK CLARKE ([id number]) 1955 M Date Time Provider Department 07/21/24 9:00 AM RYANN MONTIEL During your visit today, we recorded the following information about you: Pulse Respiration Blood pressure Weight 84/minute 16/minute 138/83 88 kg Height 1.702 m Ryann Montiel APRN.CNP, DNP 07/21/2024 9:45 AM Signed [facility] PSA/PROSTATE EVALUATION HISTORY AND PHYSICAL EXAM PATIENT: Erik Clarke (68 year old) PCP: Denis Rivero MD REFERRING Provider: Denis Rivero MD ===== Consultation requested by Dr. Denis Rivero [address] [facility] [id number] for an opinion regarding Elevated PSA and my final recommendations will be communicated back to the requesting physician by way of shared Medical record or letter via US mail. CC: Elevated PSA HPI: The patient is 68 year old and is referred for evaluation of elevated PSA. Past Med Hx: BPH, DM2, HTN, HLD Recent PSA elevation was noted to be 4.66ng/mL. Prior studies include PSA of 2.32 in 2019 No prior Bx or MRI of prostate The patient has a history of BPH and was started on tamsulosin (Flomax) by urology in 2020, which has provided significant symptomatic relief. He was evaluated by urology in 2020 for hematuria, at which time a cystoscopy revealed trilobular occlusive disease and moderate trabeculations consistent with bladder outlet obstruction secondary to an enlarged prostate. He denies current hematuria. Recent lab results indicate an elevated PSA level. He denies a known family history of prostate, bladder, or kidney cancer. He has not undergone any recent urological instrumentation, such as cystoscopy or catheterization. He denies nocturia. PRESENTING HISTORY: Hematuria: none Obstructive voiding symptoms: none. Irritative voiding symptoms: frequency Urinary retention: (HIGHER PVRs) Urinary incontinence: no Urinary tract infection: no Patient Entered Questionnaires: INTERNATIONAL PROSTATE SYMPTOM SCORE (I-PSS) 1)INCOMPLETE EMPTYING Over the past month, how often have you had a sensation of not emptying your bladder completely after you finished urinating? SCORE: 1- Less than 1 time in 5 2)FREQUENCY Over the past month, how often have you had to urinate again less than two hours after you finished urinating? SCORE: 2- less than half the time 3)INTERMITTENCY Over the past month, how often have you found you stopped and started again several times when you urinated? SCORE: 2- less than half the time 4)URGENCY Over the past month, how often have you found it difficult to postpone urination? SCORE: 1- Less than 1 time in 5 5)WEAK STREAM Over the past month, how often have you had a weak stream? SCORE: 1- Less than 1 time in 5 6)STRAINING Over the past month, how often have you had to push or strain to begin urination SCORE: 0- Not at all 7)NOCTURIA Over the past month, how many times did you most typically get up to urinate from the time you went to bed at night until the time you get up in the morning? SCORE:1 TOTAL I-PSS SCORE: 10 QUALITY OF LIFE DUE TO URINARY SYMPTOMS If you were to spend the rest of yur life with your urinary condition just the way it is now, how would you feel about that? 2- Mostly Satisfied PROMIS Global Health 01/05/2020 11/15/2023 02/21/2024 PROMIS Global Health Scale Physical Health Percentile 31 53 31 Mental Health Percentile 26 34 53 Patient-reported Percentiles provide an indication of how the patient's score ranks in relation to the general population. Higher percentile rankings indicate better function/quality of life. 50th percentile is the average of the general population and indicates half of respondents had a worse score. MEDICATIONS: Current Outpatient Medications Medication Sig Blood-Glucose Sensor ([employer] G7 SENSOR) yesenia APPLY NEW SENSOR EVERY 10 DAYS tirzepatide (MOUNJARO) 10 mg/0.5 mL pen injector Inject 10 mg subcutaneously one time a week. empagliflozin (JARDIANCE) 10 mg tablet Take 1 tablet by mouth daily with breakfast. insulin glargine U-300 conc (TOUJEO SOLOSTAR U-300 INSULIN) 300 unit/mL (1.5 mL) Inject 38 Units subcutaneously once daily. Insulin [place], Disposable, (BD ULTRAFINE III MINI PEN) 31 gauge x 3/16 Use to inject insulin once daily metFORMIN ER (GLUCOPHAGE XR) 500 mg 24 hr tablet Take 2 tablets by mouth two times a day with meals. rosuvastatin (CRESTOR) 10 mg tablet Take 1 tablet by mouth every afternoon. carvedilol (COREG) 25 mg tablet Take 1 tablet by mouth two times a day. chlorthalidone (HYGROTON) 25 mg tablet Take 0.5 tablets by mouth once daily. lisinopril (ZESTRIL) 40 mg tablet Take 1 tablet by mouth once daily. ticagrelor (BRILINTA) 90 mg tablet Take 1 tablet by mouth two times a day. Lancets Use as instructed to check (more content not included)... Normal [facility] UA DIP, URINE (POC)on 2024 BILIRUBIN UA (POCT) Negative Negative [facility] CLARITY UA (POCT) Clear [facility] COLOR UA (POCT) Yellow [facility] GLUCOSE UA (POCT) >=1000 Abnormal Negative mg/dL [facility] Hemoglobin Ql (U) Negative Negative [facility] Interpretation and review of laboratory results Abnormal [facility] KETONE UA (POCT) Negative Negative mg/dL [facility] LEUKOCYTES UA (POCT) Negative Negative [facility] NITRITE UA (POCT) Negative Negative [facility] PH UA (POCT) 7 4.5 - 8.0 [facility] Protein Ql (U) Negative Negative mg/dL [facility] SPECIFIC GRAVITY UA (POCT) 1.015 1.005 - 1.030 [facility] UROBILINOGEN UA (POCT) 0.2 Normal E.U./dL [facility] Location:[facility], [address], [place], [id number] [place] [address] POINT OF CARE [facility] Jose Miguel 06-27-2024 CNPN Telephone ([facility] ERIK CLARKE ([id number]) 1955 M Date Time Provider Department 06/27/24 OPHELIA NULL [facility] During your visit today, we recorded the following information about you: Ophelia Null, formerly [facility] 06/27/2024 2:45 PM Signed Called [facility] pharmacy to check on status of Dexcom G7 sensors. certified emergency vehicle technician states Dexcom G7 sensors are backordered at [facility] and unknown when will be able to fill. Of note, also states unsure if covered by insurance at [facility] given do not have insurance on file. To avoid further delays, will send Dexcom G7 order to [facility] to process through DME under Medicare. Sent Rx electronically to [facility]. Will follow up with [facility] rep and send insurance information for processing. Ophelia Null, PharmD, BCACP Primary Care Clinical Industrial Hygiene Manager Allergies As of Date: 06/27/2024 Noted Allergy Reaction VERAPAMIL 02/28/2024 14 - Other: See Comments Comments: Severe debilitating cluster headaches Date Reviewed: 06/24/2024 Reviewed by: Sherrie Reid, RN - Fully Assessed Reason for Visit: Medication Problem [65] Cmt: Dexcom G7 Visit Diagnosis:Type 2 diabetes mellitus with both eyes affected 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, with long-term current use of insulin ([facility]) [E11.3293, Z79.4] Order(s):Order #: [id number] Prescriptions as of 06/27/2024 - Blood-Glucose Sensor (DEXCOM G7 SENSOR) yesenia APPLY NEW SENSOR EVERY 10 DAYS - tirzepatide (MOUNJARO) 10 mg/0.5 mL pen injector Inject 10 mg subcutaneously one time a week. - empagliflozin (JARDIANCE) 10 mg tablet Take 1 tablet by mouth daily with breakfast. - insulin glargine U-300 conc (TOUJEO SOLOSTAR U-300 INSULIN) 300 unit/mL (1.5 mL) Inject 38 Units subcutaneously once daily. - Insulin [place], Disposable, (BD ULTRAFINE III MINI PEN) 31 gauge x 3/16 Use to inject insulin once daily - metFORMIN ER (GLUCOPHAGE XR) 500 mg 24 hr tablet Take 2 tablets by mouth two times a day with meals. - rosuvastatin (CRESTOR) 10 mg tablet Take 1 tablet by mouth every afternoon. - carvedilol (COREG) 25 mg tablet Take 1 tablet by mouth two times a day. - chlorthalidone (HYGROTON) 25 mg tablet Take 0.5 tablets by mouth once daily. - lisinopril (ZESTRIL) 40 mg tablet Take 1 tablet by mouth once daily. - tamsulosin (FLOMAX) 0.4 mg Take 1 capsule by mouth once daily. - ticagrelor (BRILINTA) 90 mg tablet Take 1 tablet by mouth two times a day. - potassium chloride ER (KLOR-CON) 20 mEq tablet Take 1 tablet by mouth once daily. - Lancets Use as instructed to check blood sugar twice daily - blood sugar diagnostic (BLOOD GLUCOSE TEST) test strip Use as instructed to check blood sugar twice daily - Blood-Glucose Meter Use to check blood sugar 2 times per day - Blood Pressure Monitor Use to monitor blood pressure - Blood-Glucose Meter,Continuous (DEXUdorse G7 GENERATOR ASSEMBLER) misc Use continuously to monitor glucose, IDDM, E 11.3293 - aspirin, enteric coated (ECOTRIN LOW STRENGTH) 81 mg EC tablet Take 1 tablet by mouth once daily. 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*01/22/2012 Essential hypertension [I10] 01/22/2012 Hyperlipidemia [E78.5] 01/22/2012 Benign prostatic hyperplasia with lower urinary*01/22/2012 Colon polyps [K63.5] 07/15/2014 Other and unspecified angina pectoris [I20.9] 07/15/2014 10/12/2020 Erectile dysfunction [N52.9] 08/26/2014 Prolapsed lumbar disc [M51.26] 01/19/2017 Stable angina (HCC) [I20.89] 11/13/2017 Chewing tobacco nicotine dependence without com*08/27/2018 Lumbar spondylosis [M47.816] 08/27/2018 DDD (degenerative disc disease), lumbar [M51.36*08/27/2018 Lumbar radiculopathy [M54.16] 08/27/2018 Abnormal finding on echocardiogram [R93.1] 08/27/2018 10/12/2020 Heart murmur [R01.1] 08/27/2018 05/30/2019 Bradycardia [R00.1] 04/22/2019 08/17/2023 Nicotine use disorder, F17.2 [F17.200] 04/23/2019 Nonrheumatic aortic (valve) stenosis [I35.0] 05/30/2019 Coronary artery disease involving [place] martino*05/30/2019 Rotator cuff syndrome of left shoulder [M75.102]01/28/2020 Status post insertion of drug eluting coronary *08/28/2022 HOCM (hypertrophic obstructive cardiomyopathy) *05/15/2023 Discharge planning issues [Z75.8] 08/14/2023 Encounter for support and coordination of trans*08/14/2023 Post-op pain [G89.18] 08/16/2023 Hypovolemia [E86.1] 08/16/2023 Atelectasis [J98.11] 08/17/2023 Delirium [R41.0] 08/17/2023 Diabetes mellitus type 1, controlled, without c*08/18/2023 Hypervolemia [E87.70] 08/18/2023 S/P myomectomy [Z98.890] 09/18/2023 S/P AVR [Z95.2] 09/18/2023 Primary hypertension [I10] 09/18/2023 Prescriptions ordered this encounter Disp Refills Start End DEXCOM G7 SENSOR DEVICE 9 Ea* 4 06/27/2024 Cmt: E11.9 insulin dependent; Please contact Ant (more content not included)... Normal [facility] [id number] 06-24-2024 [id number] HNO ID: [id number] Author: SHERRIE REID RN Service: ? Author Type: Registered Nurse Type: [id number] Filed: 06/24/2024 09:39 Note Text: The patient received a copy of Colonoscopy discharge instructions that contain information for how to contact the physician who performed the procedure and when to seek medical care. Normal [facility] Colonoscopyon 06-24-2024 Colonoscopy [facility] Gastrointestinal Endoscopy Patient Name: Erik Clarke Procedure Date: 06/24/2024 8:47 AM Date of : 1955 Admit Type: Outpatient Age: 68 Gender: Male Note Status: Finalized Procedure: Colonoscopy Indications: Screening for colorectal malignant neoplasm Providers: Marjorie Lee MD Patient Profile: Refer to note in patient chart for documentation of history and physical. Last Colonoscopy: 10 years ago. Referring Physician: Denis Rivero MD (Referring MD) Medicines: Midazolam 3 mg IV, Fentanyl 50 micrograms IV, Diphenhydramine 50 mg IV Complications: No immediate complications. Requesting Provider: Procedure: Pre-Anesthesia Assessment: - Prior to the procedure, a History and Physical was performed, and patient medications and allergies were reviewed. The patient is competent. The risks and benefits of the procedure and the sedation options and risks were discussed with the patient. All questions were answered and informed consent was obtained. Patient identification and proposed procedure were verified by the physician in the pre-procedure area. Mental Status Examination: alert and oriented. Airway Examination: normal oropharyngeal airway and neck mobility. Respiratory Examination: clear to auscultation. CV Examination: normal. Prophylactic Antibiotics: The patient does not require prophylactic antibiotics. Prior Anticoagulants: The patient has taken no anticoagulant or antiplatelet agents. ASA Grade Assessment: III - A patient with severe systemic disease. After reviewing the risks and benefits, the patient was deemed in satisfactory condition to undergo the procedure. The anesthesia plan was to use moderate sedation / analgesia (conscious sedation). Immediately prior to administration of medications, the patient was re-assessed for adequacy to receive sedatives. The heart rate, respiratory rate, oxygen saturations, blood pressure, adequacy of pulmonary ventilation, and response to care were monitored throughout the procedure. The physical status of the patient was re-assessed after the procedure. After I obtained informed consent, the scope was passed under direct vision. Throughout the procedure, the patient's blood pressure, pulse, and oxygen saturations were monitored continuously. The Colonoscope was introduced through the anus and advanced to the cecum, identified by the appendiceal orifice, IC valve and transillumination. The colonoscopy was performed without difficulty. The patient tolerated the procedure well. The quality of the bowel preparation was adequate to identify polyps greater than 5 mm in size. The appendiceal orifice and the rectum were photographed. Moderate Sedation: The administration of moderate sedation was initiated at 08:59. Moderate (conscious) sedation was personally administered by the endoscopist. The following parameters were monitored: oxygen saturation, heart rate, blood pressure, respiratory rate, EKG, adequacy of pulmonary ventilation, and response to care. Total physician intraservice time was 21 minutes. Findings: The perianal and digital rectal examinations were normal. Non-bleeding internal hemorrhoids were found. A 2 to 4 mm polyp was found in the sigmoid colon. The polyp was sessile. The polyp was removed with a cold snare. Resection and retrieval were complete. Verification of patient identification for the specimen was done by the nurse. Estimated blood loss was minimal. Impression: - Non-bleeding internal hemorrhoids. - One 2 to 4 mm polyp in the sigmoid colon, removed with a cold snare. Resected and retrieved. Recommendation: - Repeat colonoscopy date to be determined after pending pathology results are reviewed for surveillance based on pathology results. - - Follow up with referring provider or Miley Fraga NP, may be via televisit for discussion of pathology results and determination of timing of future endoscopies - Patient has a contact number available for emergencies. The signs and symptoms of potential delayed complications were discussed with the patient. Return to normal activities tomorrow. Written discharge instructions were provided to the patient. - Continue present medications. - Resume previous diet. Procedure Code(s): --- Professional --- 53740, Colonoscopy, flexible; with removal of tumor(s), polyp(s), or other lesion(s) by snare technique 28981, 59, Moderate sedation services provided by the same physician or other qualified health manager medicare performing the diagnostic or therapeutic service that the sedation supports, requiring the presence of an independent trained observer to assist in the monitoring of the patient's level of consciousness and physiological status; initial 15 minutes of intraservice time, patient age 5 years or older Diagnosis Code(s): --- Professional --- D12.5, B (more content not included)... Normal [facility] Colonoscopy Study observatio non 06-24-2024 [facility] Gastrointestinal Endoscopy Patient Name: Erik Clarke Procedure Date: 06/24/2024 8:47 AM Date of : 1955 Admit Type: Outpatient Age: 68 Gender: Male Note Status: Finalized Procedure: Colonoscopy Indications: Screening for colorectal malignant neoplasm Providers: Marjorie Lee MD Patient Profile: Refer to note in patient chart for documentation of history and physical. Last Colonoscopy: 10 years ago. Referring Physician: Denis Rivero MD (Referring MD) Medicines: Midazolam 3 mg IV, Fentanyl 50 micrograms IV, Diphenhydramine 50 mg IV Complications: No immediate complications. Requesting Provider: Procedure: Pre-Anesthesia Assessment: - Prior to the procedure, a History and Physical was performed, and patient medications and allergies were reviewed. The patient is competent. The risks and benefits of the procedure and the sedation options and risks were discussed with the patient. All questions were answered and informed consent was obtained. Patient identification and proposed procedure were verified by the physician in the pre-procedure area. Mental Status Examination: alert and oriented. Airway Examination: normal oropharyngeal airway and neck mobility. Respiratory Examination: clear to auscultation. CV Examination: normal. Prophylactic Antibiotics: The patient does not require prophylactic antibiotics. Prior Anticoagulants: The patient has taken no anticoagulant or antiplatelet agents. ASA Grade Assessment: III - A patient with severe systemic disease. After reviewing the risks and benefits, the patient was deemed in satisfactory condition to undergo the procedure. The anesthesia plan was to use moderate sedation / analgesia (conscious sedation). Immediately prior to administration of medications, the patient was re-assessed for adequacy to receive sedatives. The heart rate, respiratory rate, oxygen saturations, blood pressure, adequacy of pulmonary ventilation, and response to care were monitored throughout the procedure. The physical status of the patient was re-assessed after the procedure. After I obtained informed consent, the scope was passed under direct vision. Throughout the procedure, the patient's blood pressure, pulse, and oxygen saturations were monitored continuously. The Colonoscope was introduced through the anus and advanced to the cecum, identified by the appendiceal orifice, IC valve and transillumination. The colonoscopy was performed without difficulty. The patient tolerated the procedure well. The quality of the bowel preparation was adequate to identify polyps greater than 5 mm in size. The appendiceal orifice and the rectum were photographed. Moderate Sedation: The administration of moderate sedation was initiated at 08:59. Moderate (conscious) sedation was personally administered by the endoscopist. The following parameters were monitored: oxygen saturation, heart rate, blood pressure, respiratory rate, EKG, adequacy of pulmonary ventilation, and response to care. Total physician intraservice time was 21 minutes. Findings: The perianal and digital rectal examinations were normal. Non-bleeding internal hemorrhoids were found. A 2 to 4 mm polyp was found in the sigmoid colon. The polyp was sessile. The polyp was removed with a cold snare. Resection and retrieval were complete. Verification of patient identification for the specimen was done by the nurse. Estimated blood loss was minimal. Impression: - Non-bleeding internal hemorrhoids. - One 2 to 4 mm polyp in the sigmoid colon, removed with a cold snare. Resected and retrieved. Recommendation: - Repeat colonoscopy date to be determined after pending pathology (more content not included)... PROVATION [facility] Radiology Study observation (narrative) [facility] HISTORY PHYSICALon HISTORY PHYSICAL HNO ID: [id number] Author: MARJORIE LEE MD Service: General Surgery Author Type: Physician Type: H&P Filed: 06/24/2024 08:51 Note Text: HISTORY AND PHYSICAL Erik Sepulveda Crebwen 1955 REFERRING PHYSICIAN: Denis Rivero MD CHIEF COMPLAINT: No chief complaint on file. HPI: The patient is a 68 year old male here for colonoscopy for screening for colon cancer. Last colonoscopy about 10 years ago PAST MEDICAL HISTORY Diagnosis Date BPH (benign prostatic hypertrophy) with urinary retention 01/22/2012 Bradycardia Coronary artery disease involving [place] coronary artery of [place] heart without angina pectoris 05/30/2019 History: s/p CATRACHITA. On Brilinta ED (erectile dysfunction) HOCM (hypertrophic obstructive cardiomyopathy) (HCC) 05/15/2023 History: HOCM Hyperlipidemia LDL goal < 100 01/22/2012 Hypertension 01/22/2012 Nonrheumatic aortic (valve) stenosis 05/30/2019 History: Severe Obesity S/P AVR 09/18/2023 S/P myomectomy 09/18/2023 Status post insertion of drug eluting coronary artery stent 08/28/2022 Type 2 diabetes mellitus not at goal 01/22/2012 PAST SURGICAL HISTORY Procedure Laterality Date CARDIAC CATHETERIZATION HX 1999, 2004 no blockages, mildly leaky valve LEFT HEART CATH,PERCUTANEOUS 06/2022 stent placed PAST SURGICAL HISTORY OF 12/2015 L3-S1 laminectomy, decompression PAST SURGICAL HISTORY OF 01/16/2017 Lumbar reexploration L3-S1 with laminectomy and decompression Current Outpatient Medications Medication Sig carvedilol (COREG) 25 mg tablet Take 1 tablet by mouth two times a day. chlorthalidone (HYGROTON) 25 mg tablet Take 0.5 tablets by mouth once daily. lisinopril (ZESTRIL) 40 mg tablet Take 1 tablet by mouth once daily. tamsulosin (FLOMAX) 0.4 mg Take 1 capsule by mouth once daily. Blood-Glucose Sensor (Anne Fogarty G7 SENSOR) yesenia APPLY NEW SENSOR EVERY 10 DAYS tirzepatide (MOUNJARO) 10 mg/0.5 mL pen injector Inject 10 mg subcutaneously one time a week. empagliflozin (JARDIANCE) 10 mg tablet Take 1 tablet by mouth daily with breakfast. insulin glargine U-300 conc (TOUJEO SOLOSTAR U-300 INSULIN) 300 unit/mL (1.5 mL) Inject 38 Units subcutaneously once daily. Insulin [place], Disposable, (BD ULTRAFINE III MINI PEN) 31 gauge x 3/16 Use to inject insulin once daily metFORMIN ER (GLUCOPHAGE XR) 500 mg 24 hr tablet Take 2 tablets by mouth two times a day with meals. rosuvastatin (CRESTOR) 10 mg tablet Take 1 tablet by mouth every afternoon. ticagrelor (BRILINTA) 90 mg tablet Take 1 tablet by mouth two times a day. potassium chloride ER (KLOR-CON) 20 mEq tablet Take 1 tablet by mouth once daily. Lancets Use as instructed to check blood sugar twice daily blood sugar diagnostic (BLOOD GLUCOSE TEST) test strip Use as instructed to check blood sugar twice daily Blood-Glucose Meter Use to check blood sugar 2 times per day Blood Pressure Monitor Use to monitor blood pressure Blood-Glucose Meter,Continuous (DEXCOM G7 GENERATOR ASSEMBLER) misc Use continuously to monitor glucose, IDDM, E 11.3293 aspirin, enteric coated (ECOTRIN LOW STRENGTH) 81 mg EC tablet Take 1 tablet by mouth once daily. Current Facility-Administered Medications Medication Dose Route Frequency lactated ringers iv infusion 30 mL/hr INTRAVENOUS CONTINUOUS ALLERGIES: Verapamil PERSONAL HISTORY: Social History Tobacco Use Smoking status: Former Current packs/day: 0.00 Types: Cigarettes Quit date: 01/21/2010 Years since quittin.4 Smokeless tobacco: Current Types: Chew Tobacco comments: Patient states he has been chewing since he was younger - about a half can. Patient states it is the pouch type. Vaping Use Vaping status: Never Used Substance Use Topics Alcohol use: No Drug use: No FAMILY HISTORY Problem Relation Age of Onset Diabetes Mother Heart Father Diabetes Father REVIEW OF SYMPTOMS: Denies chest pain Denies shortness of breath PHYSICAL EXAMINATION: General: The patient is 68 year old male, well nourished, well hydrated in no acute distress. The patient is oriented to time, place, and person. VITALS: Blood pressure 128/65, pulse 86, temperature 36.3 ?C (97.3 ?F), temperature source Temporal Artery, resp. rate 16, SpO2 98%. There is no height or weight on file to calculate BMI. Head - Normocephalic. EOM intact with sclera clear. Mouth with mucus membranes moist. Neck - supple with no jugular venous distention noted. Trachea is midline. Lungs - normal breath sounds, normal respiratory motion, no adventitial sounds noted. Heart - normal heart sounds. Regular rate. Abdomen - soft and benign. Extremities - no pitting edema noted. Skin - Normal skin integrity. Neurological - non focal Psych - calm and appropriate Impression: screening for colon cancer, Discussion/Plan/Recommendat ions: I have discussed the above with the patient. I have offered colonoscopy , possible biopsies I have explained the procedure to (more content not included)... Normal [facility] Pathology biopsy report Felipe (Tiss)on 06-24-2024 AP DISCLAIMER Normal [facility] Comment on above: Order Comment: Speci men Type: TISSUE SPECIMENOrdering Facility: [facility] Address: [address] [place] [address] Result Comment: Norman meneses Developed Test (LDT) Disclaimer: Performance characteristics of immunohistochemical, immunofluorescent, and chromogenic in-situ hybridization tests have been determined by the performing laboratory within [facility] Laboratory Medicine Department ([facility], [facility], [facility], [facility], [facility], [facility], or [facility]) in a manner consistent with CLIA requirements. One or more of these tests may not have been cleared or approved by the FDA. [facility] is regulated under CLIA as qualified to perform high-complexity testing. These tests are used for clinical purposes. These should not be regarded as investigational or for research. Positive and negative controls stain appropriately. Performed By: #### 6 6121-5 ####[facility] LABORATORYCLIA [id number] [address] [facility] LABCLIA [id number] [address] [place] CASE REPORT Normal [facility] Comment on above: Order Comment: Speci men Type: TISSUE SPECIMENOrdering Facility: [facility] Address: [address] [place] [address] Result Comment: [facility] Pathology Report Case: [id number] Authorizing Provider: Marjorie Lee MD Collected: 06/24/2024 09:18 AM Ordering Location: Ambulatory Surgery Received: 06/24/2024 11:39 AM Pathologist: Blaise Finn MD Specimen: Colon, Sigmoid, Polyp Performed By: #### 6 6121-5 ####[facility] LABORATORYCLIA [id number] [address] LABCLIA [id number] [place] [address] [place] FINAL DIAGNOSIS Normal [facility] Comment on above: Order Comment: Speci men Type: TISSUE SPECIMENOrdering Facility: [facility] Address: [address] [place] [address] Result Comment: Sigm oid colon polyp, biopsy: - Hyperplastic polyp. JEL 06/25/2024 at 1353 EST Performed By: #### 6 6121-5 ####[facility] LABORATORYCLIA [id number] [address] LABCLIA [id number] [address] [place] FINAL PERFORMING LAB Normal [facility] Comment on above: Order Comment: Speci men Type: TISSUE SPECIMENOrdering Facility: [facility] Address: [address] [place] [address] Result Comment: Diag nostic interpretation performed at: [facility], [address] [id number] CLIA# [id number] [employer]: Ev Hebert MD Performed By: #### 6 6121-5 ####[facility] LABORATORYCLIA [id number] [address] LABCLIA [id number] [address] [address] [place] GROSS DESCRIPTION Normal [facility] Comment on above: Order Comment: Speci men Type: TISSUE SPECIMENOrdering Facility: [facility] Address: [address] [place] [address] Result Comment: A. Sarah castellanosoksana, Sigmoid, Polyp Received in formalin is one piece of echevarria, soft tissue measuring 0.7 x 0.3 x 0.2 cm. Totally submitted in one cassette. KDK June 24, 2024 6:24 PM Gross examination performed at [facility], [address] [place] [address] Performed By: #### 6 6121-5 ####MARI LABORATORYCLIA [id number] [address] LABCLIA [id number] [address] [facility] CNOVon 06-17-2024 CNOV [facility] Visit [facility] ) ERIK CLARKE ([id number]) 1955 M Date Time Provider Department 06/17/24 9:00 AM OPHELIA NULL [facility] During your visit today, we recorded the following information about you: Ophelia Null margaret 06/18/2024 12:46 PM Signed Primary Care Pharmacy Visit CC (Reason for Consult): (E11.9, Z79.4) Type 2 diabetes mellitus without complication, with long-term current use of insulin (HCC) (primary encounter diagnosis) Goal(s): A1c <7% Last Collaborating Provider Visit: 06/05/[address] Mat Sepulveda Vince is a 68 year old male presenting for follow up visit in person. Patient consents to pharmacy collaborative practice agreement. Last Pharmacy Visit: 04/29/24 HPI: Paid $500 for 3 months supply for CGM Just thuan Rodarte. Paid $141 for 3 months Used to get the CGM through mail Called Medicare yesterday and they told him to call [facility] in [place] to have CGM order sent there Feels like the CGM helps him and would like to use it Eats sweets lately Current DM Medications: Metformin ER 500 mg #2 twice daily Jardiance 10 mg once daily Mounjaro 10 mg once weekly on Fridays Toujeo 38 units once daily Previously Trialed DM Meds: Glimepiride - changed to insulin Ariella Moser - can't remember why he stopped it Jardiance 25mg - balanitis Diet No major changes in diet. Just been eating sweets. GLYCEMIC CONTROL: Glucometer present at visit: Yes Hypoglycemia: No Past medical history reviewed. ALLERGIES Allergen Reactions Verapamil Other: See Comments Severe debilitating cluster headaches Current Outpatient Medications Medication Sig Dispense Refill tirzepatide (MOUNJARO) 10 mg/0.5 mL pen injector Inject 10 mg subcutaneously one time a week. 6 mL 4 Blood-Glucose Sensor (Anne Fogarty G7 SENSOR) yesenia APPLY NEW SENSOR EVERY 10 DAYS 9 Each 3 empagliflozin (JARDIANCE) 10 mg tablet Take 1 tablet by mouth daily with breakfast. 90 tablet 3 insulin glargine U-300 conc (TOUJEO SOLOSTAR U-300 INSULIN) 300 unit/mL (1.5 mL) Inject 38 Units subcutaneously once daily. 15 mL 3 Insulin [place], Disposable, (BD ULTRAFINE III MINI PEN) 31 gauge x 3/16 Use to inject insulin once daily 100 Each 3 metFORMIN ER (GLUCOPHAGE XR) 500 mg 24 hr tablet Take 2 tablets by mouth two times a day with meals. 360 tablet 3 rosuvastatin (CRESTOR) 10 mg tablet Take 1 tablet by mouth every afternoon. 90 tablet 3 carvedilol (COREG) 25 mg tablet Take 1 tablet by mouth two times a day. 180 tablet 3 chlorthalidone (HYGROTON) 25 mg tablet Take 0.5 tablets by mouth once daily. 45 tablet 2 lisinopril (ZESTRIL) 40 mg tablet Take 1 tablet by mouth once daily. 90 tablet 3 tamsulosin (FLOMAX) 0.4 mg Take 1 capsule by mouth once daily. 90 capsule 3 ticagrelor (BRILINTA) 90 mg tablet Take 1 tablet by mouth two times a day. 180 tablet 3 potassium chloride ER (KLOR-CON) 20 mEq tablet Take 1 tablet by mouth once daily. 5 tablet 0 Lancets Use as instructed to check blood sugar twice daily 200 Each 3 blood sugar diagnostic (BLOOD GLUCOSE TEST) test strip Use as instructed to check blood sugar twice daily 200 Each 3 Blood-Glucose Meter Use to check blood sugar 2 times per day 1 Each 0 Blood Pressure Monitor Use to monitor blood pressure 1 Each 0 Blood-Glucose Meter,Continuous (DEXCOM G7 GENERATOR ASSEMBLER) misc Use continuously to monitor glucose, IDDM, E 11.3293 aspirin, enteric coated (ECOTRIN LOW STRENGTH) 81 mg EC tablet Take 1 tablet by mouth once daily. No current facility-administered medications for this visit. Pill bottles are not present. Adherence: denies missed doses. Rx coverage: Payor: MEDICARE / Plan: MEDICARE A AND B / Product Type: Medicare / Medications affordable? Yes PHARMACOTHERAPY PREVENTATIVE MEDS: On MARY BETH/ARB: Yes On Statin: Yes On ASA: Yes EXAM: There were no vitals taken for this visit. Last 3 Encounter BP Readings: Date: BP: 06/05/2024 137/73 02/28/2024 134/80 01/01/2024 153/89 Wt: 88 kg (194 lb 0.1 oz) BMI: 29.51 kg/(m2) LABS: Lab Results Component Value Date HBA1C 7.3 01/23/2024 HBA1C 7.5 08/15/2023 HBA1C 7.7 11/14/2022 HBA1C 7.9 12/13/2021 HBA1C 9.1 04/05/2020 HBA1C 9.0 11/03/2019 HBA1C 8.4 03/14/2019 HBA1C 8.0 08/24/2018 Glucose 157 06/16/2024 BUN 17 06/16/2024 Creatinine 0.81 06/16/2024 Sodium 143 06/16/2024 Potassium 4.1 06/16/2024 Chloride 104 06/16/2024 CO2 28 06/16/2024 Protein, Total 7.4 06/16/2024 Albumin 4.5 06/16/2024 Calcium 10.2 06/16/2024 Alkaline Phosphatase 47 06/16/2024 Bilirubin, Total 1.4 06/16/2024 AST 19 06/16/2024 ALT 20 06/16/2024 Lab Results Component Value Date CHOL 92 12/04/2023 CHOL 146 04/05/2020 LDL 8 12/04/2023 LDL 53 04/05/2020 HDL 33 12/04/2023 HDL 31 04/05/2020 TG 256 12/04/2023 TG 310 04/05/2020 Albumin/Creat Ratio (mg/g) Date Value 12/04/2023 134 (H) eGFR-All (more content not included)... Normal [facility] CNPNon 06-17-2024 CNPN Telephone [facility] ERIK CLARKE ([id number]) 1955 M Date Time Provider Department 06/17/24 OPHELIA NULL [facility] During your visit today, we recorded the following information about you: Ophelia Null RPh 06/17/2024 1:53 PM Signed Patient reports increased cost of Dexcom G7 with new insurance. States he called his insurance the other day and was recommended to have Rx sent to [facility] for potentially lower cost. Sent Rx to [facility] pharmacy per patient request. If still unaffordable, may consider switching to Freestyle Ana to see if lower cost. Ophelia Null, PharmD, BCACP Primary Care Clinical Industrial Hygiene Manager Allergies As of Date: 06/17/2024 Noted Allergy Reaction VERAPAMIL 02/28/2024 14 - Other: See Comments Comments: Severe debilitating cluster headaches Date Reviewed: 06/05/2024 Reviewed by: Karishma Walsh LPN - Fully Assessed Reason for Visit: Medication Update [3206] Cmt: Dexcom G7 Visit Diagnosis:Type 2 diabetes mellitus with both eyes affected 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, with long-term current use of insulin ([facility]) [E11.3293, Z79.4] Order(s):Order #: [id number] Prescriptions as of 06/17/2024 - Blood-Glucose Sensor (DEXCOM G7 SENSOR) yesenia APPLY NEW SENSOR EVERY 10 DAYS - tirzepatide (MOUNJARO) 10 mg/0.5 mL pen injector Inject 10 mg subcutaneously one time a week. - empagliflozin (JARDIANCE) 10 mg tablet Take 1 tablet by mouth daily with breakfast. - insulin glargine U-300 conc (TOUJEO SOLOSTAR U-300 INSULIN) 300 unit/mL (1.5 mL) Inject 38 Units subcutaneously once daily. - Insulin [place], Disposable, (BD ULTRAFINE III MINI PEN) 31 gauge x 3/16 Use to inject insulin once daily - metFORMIN ER (GLUCOPHAGE XR) 500 mg 24 hr tablet Take 2 tablets by mouth two times a day with meals. - rosuvastatin (CRESTOR) 10 mg tablet Take 1 tablet by mouth every afternoon. - carvedilol (COREG) 25 mg tablet Take 1 tablet by mouth two times a day. - chlorthalidone (HYGROTON) 25 mg tablet Take 0.5 tablets by mouth once daily. - lisinopril (ZESTRIL) 40 mg tablet Take 1 tablet by mouth once daily. - tamsulosin (FLOMAX) 0.4 mg Take 1 capsule by mouth once daily. - ticagrelor (BRILINTA) 90 mg tablet Take 1 tablet by mouth two times a day. - potassium chloride ER (KLOR-CON) 20 mEq tablet Take 1 tablet by mouth once daily. - Lancets Use as instructed to check blood sugar twice daily - blood sugar diagnostic (BLOOD GLUCOSE TEST) test strip Use as instructed to check blood sugar twice daily - Blood-Glucose Meter Use to check blood sugar 2 times per day - Blood Pressure Monitor Use to monitor blood pressure - Blood-Glucose Meter,Continuous (DEXCOM G7 GENERATOR ASSEMBLER) [facility] Use continuously to monitor glucose, IDDM, E 11.329 - aspirin, enteric coated (ECOTRIN LOW STRENGTH) 81 mg EC tablet Take 1 tablet by mouth once daily. 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*01/22/2012 Essential hypertension [I10] 01/22/2012 Hyperlipidemia [E78.5] 01/22/2012 Benign prostatic hyperplasia with lower urinary*01/22/2012 Colon polyps [K63.5] 07/15/2014 Other and unspecified angina pectoris [I20.9] 07/15/2014 10/12/2020 Erectile dysfunction [N52.9] 08/26/2014 Prolapsed lumbar disc [M51.26] 01/19/2017 Stable angina (HCC) [I20.89] 11/13/2017 Chewing tobacco nicotine dependence without com*08/27/2018 Lumbar spondylosis [M47.816] 08/27/2018 DDD (degenerative disc disease), lumbar [M51.36*08/27/2018 Lumbar radiculopathy [M54.16] 08/27/2018 Abnormal finding on echocardiogram [R93.1] 08/27/2018 10/12/2020 Heart murmur [R01.1] 08/27/2018 05/30/2019 Bradycardia [R00.1] 04/22/2019 08/17/2023 Nicotine use disorder, F17.2 [F17.200] 04/23/2019 Nonrheumatic aortic (valve) stenosis [I35.0] 05/30/2019 Coronary artery disease involving [place]*05/30/2019 Rotator cuff syndrome of left shoulder [M75.102]01/28/2020 Status post insertion of drug eluting coronary *08/28/2022 HOCM (hypertrophic obstructive cardiomyopathy) *05/15/2023 Discharge planning issues [Z75.8] 08/14/2023 Encounter for support and coordination of trans*08/14/2023 Post-op pain [G89.18] 08/16/2023 Hypovolemia [E86.1] 08/16/2023 Atelectasis [J98.11] 08/17/2023 Delirium [R41.0] 08/17/2023 Diabetes mellitus type 1, controlled, without c*08/18/2023 Hypervolemia [E87.70] 08/18/2023 S/P myomectomy [Z98.890] 09/18/2023 S/P AVR [Z95.2] 09/18/2023 Primary hypertension [I10] 09/18/2023 Prescriptions ordered this encounter Disp Refills Start End DEXCOM G7 SENSOR DEVICE 9 Ea* 4 06/17/2024 Cmt: E11.9 insulin dependent; Please contact Ophelia Null PharmD at [phone] with any questions regarding this script. Sig: APPLY NEW SENSOR EVERY 10 DAYS Medications Discontinued During This Encounter (more content not included)... Normal [facility] CNPN Telephone ([facility]) ERIK CLARKE ([id number]) 1955 M Date Time Provider Department 06/17/24 DENIS RIVERO [facility] During your visit today, we recorded the following information about you: Denis Rivero MD 06/17/2024 11:47 AM Signed Please call and inform patient that I did get the results of his recent blood work Demonstrates elevated blood sugar as well as higher hemoglobin A1c Recommend he keep appointment with Ophelia further recommendations for blood sugar control with his diabetes 2. His PSA is much higher than what it was previous Given this elevation, would like for him to see urology Order for this has been placed Thanks Luisa Donnelly, ABDIAS 06/17/2024 11:58 AM Signed Spoke with pt, reviewed below message. Verbalized understanding, no further questions. Pt not able to schedule right now, will call back to schedule when he can Allergies As of Date: 06/17/2024 Noted Allergy Reaction VERAPAMIL 02/28/2024 14 - Other: See Comments Comments: Severe debilitating cluster headaches Date Reviewed: 06/05/2024 Reviewed by: Karishma Walsh LPN - Fully Assessed Reason for Visit: Results [95] Cmt: Blood work Primary Visit Diagnosis:Benign prostatic hyperplasia with lower urinary tract symptoms, symptom details unspecified [N40.1] Other Visit Diagnosis:Elevated PSA [R97.20] Order(s):CONSULT TO UROLOGY [9085] Order #: [id number]: 1 FUTURE Prescriptions as of 06/17/2024 - tirzepatide (MOUNJARO) 10 mg/0.5 mL pen injector Inject 10 mg subcutaneously one time a week. - Blood-Glucose Sensor (DEXCOM G7 SENSOR) yesenia APPLY NEW SENSOR EVERY 10 DAYS - empagliflozin (JARDIANCE) 10 mg tablet Take 1 tablet by mouth daily with breakfast. - insulin glargine U-300 conc (TOUJEO SOLOSTAR U-300 INSULIN) 300 unit/mL (1.5 mL) Inject 38 Units subcutaneously once daily. - Insulin [place], Disposable, (BD ULTRAFINE III MINI PEN) 31 gauge x 3/16 Use to inject insulin once daily - metFORMIN ER (GLUCOPHAGE XR) 500 mg 24 hr tablet Take 2 tablets by mouth two times a day with meals. - rosuvastatin (CRESTOR) 10 mg tablet Take 1 tablet by mouth every afternoon. - carvedilol (COREG) 25 mg tablet Take 1 tablet by mouth two times a day. - chlorthalidone (HYGROTON) 25 mg tablet Take 0.5 tablets by mouth once daily. - lisinopril (ZESTRIL) 40 mg tablet Take 1 tablet by mouth once daily. - tamsulosin (FLOMAX) 0.4 mg Take 1 capsule by mouth once daily. - ticagrelor (BRILINTA) 90 mg tablet Take 1 tablet by mouth two times a day. - potassium chloride ER (KLOR-CON) 20 mEq tablet Take 1 tablet by mouth once daily. - Lancets Use as instructed to check blood sugar twice daily - blood sugar diagnostic (BLOOD GLUCOSE TEST) test strip Use as instructed to check blood sugar twice daily - Blood-Glucose Meter Use to check blood sugar 2 times per day - Blood Pressure Monitor Use to monitor blood pressure - Blood-Glucose Meter,Continuous (DEXCOM G7 GENERATOR ASSEMBLER) misc Use continuously to monitor glucose, IDDM, E 11.6050 - aspirin, enteric coated (ECOTRIN LOW STRENGTH) 81 mg EC tablet Take 1 tablet by mouth once daily. 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*01/22/2012 Essential hypertension [I10] 01/22/2012 Hyperlipidemia [E78.5] 01/22/2012 Benign prostatic hyperplasia with lower urinary*01/22/2012 Colon polyps [K63.5] 07/15/2014 Other and unspecified angina pectoris [I20.9] 07/15/2014 10/12/2020 Erectile dysfunction [N52.9] 08/26/2014 Prolapsed lumbar disc [M51.26] 01/19/2017 Stable angina (HCC) [I20.89] 11/13/2017 Chewing tobacco nicotine dependence without com*08/27/2018 Lumbar spondylosis [M47.816] 08/27/2018 DDD (degenerative disc disease), lumbar [M51.36*08/27/2018 Lumbar radiculopathy [M54.16] 08/27/2018 Abnormal finding on echocardiogram [R93.1] 08/27/2018 10/12/2020 Heart murmur [R01.1] 08/27/2018 05/30/2019 Bradycardia [R00.1] 04/22/2019 08/17/2023 Nicotine use disorder, F17.2 [F17.200] 04/23/2019 Nonrheumatic aortic (valve) stenosis [I35.0] 05/30/2019 Coronary artery disease involving [place]*05/30/2019 Rotator cuff syndrome of left shoulder [M75.102]01/28/2020 Status post insertion of drug eluting coronary *08/28/2022 HOCM (hypertrophic obstructive cardiomyopathy) *05/15/2023 Discharge planning issues [Z75.8] 08/14/2023 Encounter for support and coordination of trans*08/14/2023 Post-op pain [G89.18] 08/16/2023 Hypovolemia [E86.1] 08/16/2023 Atelectasis [J98.11] 08/17/2023 Delirium [R41.0] 08/17/2023 Diabetes mellitus type 1, controlled, without c*08/18/2023 Hypervolemia [E87.70] 08/18/2023 S/P myomectomy [Z98.890] 09/18/2023 S/P AVR [Z95.2] 09/18/2023 Primary hypertension [I10] 09/18/2023 Encounter Status:Closed by LUISA DONNELLY on 06/17/24 [facility] 06-16-2024 SHAKILA Telephone ([facility]) ERIK CLARKE ([id number]) 1955 M Date Time Provider Department 06/16/24 DENIS RIVERO During your visit today, we recorded the following information about you: Nika Roblero LPN 06/16/2024 12:43 PM Signed Patient calling he has Colonoscopy scheduled for 06/24/2024, asking about his blood thinner Brilinta 90 mg he takes one tablet twice daily. He has gotten instruction about his diabetic medications but not sure what to do with the blood thinner? Please advise Denis Rivero MD 06/16/2024 1:05 PM Signed Recommend holding the Brilinta 3 days prior to procedure. Would be okay to restart 2 to 3 days after the procedure depending on recommendations from the box stapler Nika Roblero LPN 06/16/2024 1:48 PM Signed Phoned patient and went over notes below from PCP, patient wrote down information and read back to nurse with understanding. Allergies As of Date: 06/16/2024 Noted Allergy Reaction VERAPAMIL 02/28/2024 14 - Other: See Comments Comments: Severe debilitating cluster headaches Date Reviewed: 06/05/2024 Reviewed by: Karishma Walsh LPN - Fully Assessed Reason for Visit: Patient Question [0901] Prescriptions as of 06/16/2024 - tirzepatide (MOUNJARO) 10 mg/0.5 mL pen injector Inject 10 mg subcutaneously one time a week. - Blood-Glucose Sensor (Anne Fogarty G7 SENSOR) yesenia APPLY NEW SENSOR EVERY 10 DAYS - empagliflozin (JARDIANCE) 10 mg tablet Take 1 tablet by mouth daily with breakfast. - insulin glargine U-300 conc (TOUJEO SOLOSTAR U-300 INSULIN) 300 unit/mL (1.5 mL) Inject 38 Units subcutaneously once daily. - Insulin [place]ona, Disposable, (BD ULTRAFINE III MINI PEN) 31 gauge x 3/16 Use to inject insulin once daily - metFORMIN ER (GLUCOPHAGE XR) 500 mg 24 hr tablet Take 2 tablets by mouth two times a day with meals. - rosuvastatin (CRESTOR) 10 mg tablet Take 1 tablet by mouth every afternoon. - carvedilol (COREG) 25 mg tablet Take 1 tablet by mouth two times a day. - chlorthalidone (HYGROTON) 25 mg tablet Take 0.5 tablets by mouth once daily. - lisinopril (ZESTRIL) 40 mg tablet Take 1 tablet by mouth once daily. - tamsulosin (FLOMAX) 0.4 mg Take 1 capsule by mouth once daily. - ticagrelor (BRILINTA) 90 mg tablet Take 1 tablet by mouth two times a day. - potassium chloride ER (KLOR-CON) 20 mEq tablet Take 1 tablet by mouth once daily. - Lancets Use as instructed to check blood sugar twice daily - blood sugar diagnostic (BLOOD GLUCOSE TEST) test strip Use as instructed to check blood sugar twice daily - Blood-Glucose Meter Use to check blood sugar 2 times per day - Blood Pressure Monitor Use to monitor blood pressure - Blood-Glucose Meter,Continuous (DEXCOM G7 GENERATOR ASSEMBLER) misc Use continuously to monitor glucose, IDDM, E 11.3293 - aspirin, enteric coated (ECOTRIN LOW STRENGTH) 81 mg EC tablet Take 1 tablet by mouth once daily. 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*01/22/2012 Essential hypertension [I10] 01/22/2012 Hyperlipidemia [E78.5] 01/22/2012 Benign prostatic hyperplasia with lower urinary*01/22/2012 Colon polyps [K63.5] 07/15/2014 Other and unspecified angina pectoris [I20.9] 07/15/2014 10/12/2020 Erectile dysfunction [N52.9] 08/26/2014 Prolapsed lumbar disc [M51.26] 01/19/2017 Stable angina (HCC) [I20.89] 11/13/2017 Chewing tobacco nicotine dependence without com*08/27/2018 Lumbar spondylosis [M47.816] 08/27/2018 DDD (degenerative disc disease), lumbar [M51.36*08/27/2018 Lumbar radiculopathy [M54.16] 08/27/2018 Abnormal finding on echocardiogram [R93.1] 08/27/2018 10/12/2020 Heart murmur [R01.1] 08/27/2018 05/30/2019 Bradycardia [R00.1] 04/22/2019 08/17/2023 Nicotine use disorder, F17.2 [F17.200] 04/23/2019 Nonrheumatic aortic (valve) stenosis [I35.0] 05/30/2019 Coronary artery disease involving [place]*05/30/2019 Rotator cuff syndrome of left shoulder [M75.102]01/28/2020 Status post insertion of drug eluting coronary *08/28/2022 HOCM (hypertrophic obstructive cardiomyopathy) *05/15/2023 Discharge planning issues [Z75.8] 08/14/2023 Encounter for support and coordination of trans*08/14/2023 Post-op pain [G89.18] 08/16/2023 Hypovolemia [E86.1] 08/16/2023 Atelectasis [J98.11] 08/17/2023 Delirium [R41.0] 08/17/2023 Diabetes mellitus type 1, controlled, without c*08/18/2023 Hypervolemia [E87.70] 08/18/2023 S/P myomectomy [Z98.890] 09/18/2023 S/P AVR [Z95.2] 09/18/2023 Primary hypertension [I10] 09/18/2023 Encounter Status:Closed by NIKA ROBLERO on 06/16/24 Normal [facility] Comprehensive metabolic 2000 panelon 06-16-2024 Albumin [Mass/Vol] 4.5 g/dL Normal 3.9-4.9 [facility] Comment on above: Order Comment: Luda men Type: BLOOD SPECIMEN Ordering Facility: [facility] Address: [address] [place] [address] Performed By: #### 2 4323-8 #### [facility] CLIA [id number] [address] [place] [address] [facility] ALP [Catalytic activity/Vol] 47 U/L Normal 38-113 [facility] Comment on above: Order Comment: Rukhsanai men Type: BLOOD SPECIMEN Ordering Facility: [facility] Address: [address] [place] [address] Performed By: #### 2 4323-8 #### [facility] CLIA [id number] [address] [place] [address] [place] ALT With P-5'-P [Catalytic activity/Vol] 20 U/L Normal 10-54 [facility] Comment on above: Order Comment: Speci men Type: BLOOD SPECIMEN Ordering Facility: [facility] Address: [address] [place], [place] [id number] Performed By: #### 2 4323-8 #### [facility] CLIA [id number] [address] [place] [address] [place] Anion gap [Moles/Vol] 11 mmol/L Normal 8-15 [facility] Comment on above: Order Comment: Speci men Type: BLOOD SPECIMEN Ordering Facility: [facility] Address: [address] [place] [address] Performed By: #### 2 4323-8 #### [facility] CLIA [id number] [address] [place] [address] [place] AST With P-5'-P [Catalytic activity/Vol] 19 U/L Normal 14-40 [facility] Comment on above: Order Comment: Speci men Type: BLOOD SPECIMEN Ordering Facility: [facility] Address: [address] [place] [address] Performed By: #### 2 4323-8 #### [facility] CLIA [id number] [address] [place] [address] [place] Bilirubin [Mass/Vol] 1.4 mg/dL High 0.2-1.3 [facility] Comment on above: Order Comment: Speci men Type: BLOOD SPECIMEN Ordering Facility: [facility] Address: [address] [place] [address] Performed By: #### 2 4323-8 #### [facility] CLIA [id number] [address] [place] [address] [place] Calcium [Mass/Vol] 10.2 mg/dL Normal 8.5-10.2 [facility] Comment on above: Order Comment: Speci men Type: BLOOD SPECIMEN Ordering Facility: [facility] Address: [address] [place] [address] Performed By: #### 2 4323-8 #### [facility] CLIA [id number] [address] [place] [address] [place] Chloride [Moles/Vol] 104 mmol/L Normal 98-107 [facility] Comment on above: Order Comment: Speci gia Type: BLOOD SPECIMEN Ordering Facility: [facility] Address: [address] [place] [address] Performed By: #### 2 4323-8 #### [facility] CLIA [id number] [address] [place] [address] [place] CO2 [Moles/Vol] 28 mmol/L Normal 22-30 [facility] Comment on above: Order Comment: Speci men Type: BLOOD SPECIMEN Ordering Facility: [facility] Address: [address] [place] [address] Performed By: #### 2 4323-8 #### [facility] CLIA [id number] [address] [place] [address] [place] [facility] Creatinine [Mass/Vol] 0.81 mg/dL Normal 0.73-1.22 [facility] Comment on above: Order Comment: Speci men Type: BLOOD SPECIMEN Ordering Facility: [facility] Address: [address] [place] [address] Performed By: #### 2 4323-8 #### [facility] CLIA [id number] [address] [place] [address] [facility] Creatinine and Glomerular filtration rate.predicted panel (S/P/Bld) 95 mL/min/1.73m??? Normal >=60 [facility] Comment on above: Order Comment: Speci men Type: BLOOD SPECIMEN Ordering Facility: [facility] Address: [address] [place] [address] Result Comment: Yohannes mated Glomerular Filtration Rate (eGFR) is calculated using the 2020 CKD-EPI creatinine equation. This equation utilizes serum creatinine, sex, and age as parameters. The creatinine assay has traceable calibration to isotope dilution-mass spectrometry. Refer to KDIGO guidelines for clinical interpretation. In patients with unstable renal function, e.g. those with acute kidney injury, the eGFR may not accurately reflect actual GFR. Performed By: #### 2 4323-8 #### [facility] CLIA [id number] [address] [place] [address] [place] Glucose [Mass/Vol] 157 mg/dL High 74-99 [facility] Comment on above: Order Comment: Luda nielsen Type: BLOOD SPECIMEN Ordering Facility: [facility] Address: [address] [place] [address] Result Comment: The [place] Diabetes [employer] (ADA) provides guidance for cutoff values for fasting glucose and random glucose. The ADA defines fasting as no caloric intake for at least 8 hours. Fasting plasma glucose results between 100 to 125 mg/dL indicate increased risk for diabetes (prediabetes). Fasting plasma glucose results greater than or equal to 126 mg/dL meet the criteria for diagnosis of diabetes. In the absence of unequivocal hyperglycemia, results should be confirmed by repeat testing. In a patient with classic symptoms of hyperglycemia or hyperglycemic crisis, random plasma glucose results greater than or equal to 200 mg/dL meet the criteria for diagnosis of diabetes. Reference: Standards of Medical Care in Diabetes 2016, [place] [employer]. Diabetes Care. 2016.39(Suppl 1). Performed By: #### 2 4323-8 #### [facility] CLIA [id number] [address] [place] [address] [place] Potassium [Moles/Vol] 4.1 mmol/L Normal 3.7-5.1 [facility] Comment on above: Order Comment: Luda nielsen Type: BLOOD SPECIMEN Ordering Facility: [facility] Address: [address] [place] [address] Performed By: #### 2 4323-8 #### [facility] CLIA [id number] [address] [place] [address] [place] Protein [Mass/Vol] 7.4 g/dL Normal 6.3-8.0 [facility] Comment on above: Order Comment: Luda nielsen Type: BLOOD SPECIMEN Ordering Facility: [facility] Address: [address] [place], [place] [address] Performed By: #### 2 4323-8 #### [facility] CLIA [id number] [address] [place] [address] [place] Sodium [Moles/Vol] 143 mmol/L Normal 136-144 [facility] Comment on above: Order Comment: Luda nielsen Type: BLOOD SPECIMEN Ordering Facility: [facility] Address: [address] [place] [address] Performed By: #### 2 4323-8 #### [facility] CLIA [id number] [address] [place] [address] [place] Urea nitrogen [Mass/Vol] 17 mg/dL Normal 9-24 [facility] Comment on above: Order Comment: Luda nielsen Type: BLOOD SPECIMEN Ordering Facility: [facility] Address: [address] [place] [address] Performed By: #### 2 4323-8 #### [facility] CLIA [id number] [address] [place] [address] [place] HbA1c (Bld)on 06-16-2024 Average glucose Estimated from glycated hemoglobin (Bld) [Mass/Vol] 169 mg/dL Normal [facility] Comment on above: Order Comment: Luda nielsen Type: BLOOD SPECIMEN Ordering Facility: [facility] Address: [address] [place] [address] Result Comment: eAG: (Estimated average glucose) is a calculated value from HgbA1c and is surgical device sales representative of the average blood glucose level in the last 2-3 month period. Performed By: #### 5 5454-3 #### [facility] CLIA [id number] [address] [place] [address] [place] HbA1c (Bld) [Mass fraction] 7.5 % High 4.3-5.6 [facility] Comment on above: Order Comment: Luda nielsen Type: BLOOD SPECIMEN Ordering Facility: [facility] Address: [address] [place] [address] Result Comment: [place] Diabetes Association guidelines indicate that patients with HgbA1c in the range 5.7-6.4% are at increased risk for development of diabetes, and intervention by lifestyle modification may be beneficial. HgbA1c greater or equal to 6.5% is considered diagnostic of diabetes. Performed By: #### 5 5454-3 #### [facility] CLIA [id number] [address] [facility] [place] [address] [place] PSA/PROSTATE SPECIFIC ANTIGE N SCREENINGon 06-16-2024 Prostate specific Ag [Mass/Vol] 4.66 ng/mL High <2.60 [facility] Comment on above: Order Comment: Speci men Type: BLOOD SPECIMEN Ordering Facility: [facility] Address: [address] [place] [address] Result Comment: Jorgea calixto PSA test methodology used is the Electrochemiluminescence Immunoassay by [employer]. Total PSA values by differing methodologies cannot be interchanged. For an individual patient, the significance of a PSA level should be interpreted in a broad clinical context, including age, race, family history, digital rectal exam, prostate size, results of prior testing (prostate biopsy, free PSA, PCA3), and use of 5-alpha reductase inhibitors. Considering the high incidence of asymptomatic cancer in the general population that may not pose an ultimate risk to a patient, the decision to recommend urological evaluation or prostate biopsy should be individualized after consideration of all these factors. REFERENCE: Erin Sun M.D., M.P.H., Malick Elaine M.D., Ph.D., Pavan Hernández M.D., Miley Coutrney, M.P.H., Luz Sandoval, Sc.D. Effect of Verification Bias on Screening for Prostate Cancer by Measurement of Prostatic Specific Antigen. N Engl J Med 2003,349:335-42. Performed By: #### P SAS1 #### [facility] CLIA [id number] [address] [place] Jose Miguel 06-09-2024 CNPN Telephone ([facility] ERIK CLARKE ([id number]) 1955 M Date Time Provider Department 06/09/24 OPHELIA NULL [facility] During your visit today, we recorded the following information about you: Ophelia Null formerly [facility] 06/09/2024 3:16 PM Signed Patient called and LMOM for PharmD. States mail order pharmacy will not fill Mounjaro; needs to be filled at local pharmacy. Requested Rx be sent to [facility] in [place]. Patient's request for medication is as follows: Requested Prescriptions Signed Prescriptions Disp Refills tirzepatide (MOUNJARO) 10 mg/0.5 mL pen injector 6 mL 4 Sig: Inject 10 mg subcutaneously one time a week. Authorizing Provider: DENIS RIVERO Ordering User: OPHELIA NULL, PharmD, BCACP Primary Care Clinical Industrial Hygiene Manager Allergies As of Date: 06/09/2024 Noted Allergy Reaction VERAPAMIL 02/28/2024 14 - Other: See Comments Comments: Severe debilitating cluster headaches Date Reviewed: 06/05/2024 Reviewed by: Karismha Walsh LPN - Fully Assessed Reason for Visit: Medication Update [5334] Order(s):Order #: [id number] Prescriptions as of 06/27/2024 - Blood-Glucose Sensor (DEXCOM G7 SENSOR) yesenia APPLY NEW SENSOR EVERY 10 DAYS - tirzepatide (MOUNJARO) 10 mg/0.5 mL pen injector Inject 10 mg subcutaneously one time a week. - empagliflozin (JARDIANCE) 10 mg tablet Take 1 tablet by mouth daily with breakfast. - insulin glargine U-300 conc (TOUJEO SOLOSTAR U-300 INSULIN) 300 unit/mL (1.5 mL) Inject 38 Units subcutaneously once daily. - Insulin [place], Disposable, (BD ULTRAFINE III MINI PEN) 31 gauge x 3/16 Use to inject insulin once daily - metFORMIN ER (GLUCOPHAGE XR) 500 mg 24 hr tablet Take 2 tablets by mouth two times a day with meals. - rosuvastatin (CRESTOR) 10 mg tablet Take 1 tablet by mouth every afternoon. - carvedilol (COREG) 25 mg tablet Take 1 tablet by mouth two times a day. - chlorthalidone (HYGROTON) 25 mg tablet Take 0.5 tablets by mouth once daily. - lisinopril (ZESTRIL) 40 mg tablet Take 1 tablet by mouth once daily. - tamsulosin (FLOMAX) 0.4 mg Take 1 capsule by mouth once daily. - ticagrelor (BRILINTA) 90 mg tablet Take 1 tablet by mouth two times a day. - potassium chloride ER (KLOR-CON) 20 mEq tablet Take 1 tablet by mouth once daily. - Lancets Use as instructed to check blood sugar twice daily - blood sugar diagnostic (BLOOD GLUCOSE TEST) test strip Use as instructed to check blood sugar twice daily - Blood-Glucose Meter Use to check blood sugar 2 times per day - Blood Pressure Monitor Use to monitor blood pressure - Blood-Glucose Meter,Continuous (DEXCOM G7 GENERATOR ASSEMBLER) misc Use continuously to monitor glucose, IDDM, E 11.3293 - aspirin, enteric coated (ECOTRIN LOW STRENGTH) 81 mg EC tablet Take 1 tablet by mouth once daily. 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*01/22/2012 Essential hypertension [I10] 01/22/2012 Hyperlipidemia [E78.5] 01/22/2012 Benign prostatic hyperplasia with lower urinary*01/22/2012 Colon polyps [K63.5] 07/15/2014 Other and unspecified angina pectoris [I20.9] 07/15/2014 10/12/2020 Erectile dysfunction [N52.9] 08/26/2014 Prolapsed lumbar disc [M51.26] 01/19/2017 Stable angina (HCC) [I20.89] 11/13/2017 Chewing tobacco nicotine dependence without com*08/27/2018 Lumbar spondylosis [M47.816] 08/27/2018 DDD (degenerative disc disease), lumbar [M51.36*08/27/2018 Lumbar radiculopathy [M54.16] 08/27/2018 Abnormal finding on echocardiogram [R93.1] 08/27/2018 10/12/2020 Heart murmur [R01.1] 08/27/2018 05/30/2019 Bradycardia [R00.1] 04/22/2019 08/17/2023 Nicotine use disorder, F17.2 [F17.200] 04/23/2019 Nonrheumatic aortic (valve) stenosis [I35.0] 05/30/2019 Coronary artery disease involving [place] martino*05/30/2019 Rotator cuff syndrome of left shoulder [M75.102]01/28/2020 Status post insertion of drug eluting coronary *08/28/2022 HOCM (hypertrophic obstructive cardiomyopathy) *05/15/2023 Discharge planning issues [Z75.8] 08/14/2023 Encounter for support and coordination of trans*08/14/2023 Post-op pain [G89.18] 08/16/2023 Hypovolemia [E86.1] 08/16/2023 Atelectasis [J98.11] 08/17/2023 Delirium [R41.0] 08/17/2023 Diabetes mellitus type 1, controlled, without c*08/18/2023 Hypervolemia [E87.70] 08/18/2023 S/P myomectomy [Z98.890] 09/18/2023 S/P AVR [Z95.2] 09/18/2023 Primary hypertension [I10] 09/18/2023 Prescriptions ordered this encounter Disp Refills Start End TIRZEPATIDE 10 MG/0.5 ML SUBCUTANEOU* 6 mL 4 06/09/2024 Cmt: Please contact Ophelia Null, ChasidyD at [phone] with any questions regarding this script. Route: SUBCUTANEOUS Sig: Inject 10 mg subcutaneously one time a week. Medications Discontinued During This Encounter Prescriptions - tirzepatide (MOUNJARO) 10 mg (more content not included)... Normal [facility] CNOVon 06-05-2024 CNOV Office Visit (FAMDNA ) ERIK CLARKE ([id number]) 1955 M Date Time Provider Department 06/05/24 7:00 AM DENIS RIVERO During your visit today, we recorded the following information about you: Temperature Pulse Blood pressure Weight 97.1 degrees 91/minute 137/73 88 kg Height 1.727 m Denis Rivero MD 06/05/2024 7:45 AM Signed Erik Clarke is a 68 year old male presenting for 6 Month Exam DM: Blood sugars are ranging in the 150's or so Patient continues with the Mounjaro Metformin, Jardiance and Toujeo CAD/HTN/HLD/HOCM: Patient does follow with cardiology regularly Headache: Follows with neurology He has not had a MORGAN in some time He feels good He is not taking anything for this now He has O2 at home but has not needed Would usually work HISTORIES: PAST MEDICAL HISTORY Diagnosis Date BPH (benign prostatic hypertrophy) with urinary retention 01/22/2012 Bradycardia Coronary artery disease involving [place] coronary artery of [place] heart without angina pectoris 05/30/2019 History: s/p CATRACHITA. On Brilinta ED (erectile dysfunction) HOCM (hypertrophic obstructive cardiomyopathy) (HCC) 05/15/2023 History: HOCM Hyperlipidemia LDL goal < 100 01/22/2012 Hypertension 01/22/2012 Nonrheumatic aortic (valve) stenosis 05/30/2019 History: Severe Obesity S/P AVR 09/18/2023 S/P myomectomy 09/18/2023 Status post insertion of drug eluting coronary artery stent 08/28/2022 Type 2 diabetes mellitus not at goal 01/22/2012 PAST SURGICAL HISTORY Procedure Laterality Date CARDIAC CATHETERIZATION HX 1999, 2004 no blockages, mildly leaky valve LEFT HEART CATH,PERCUTANEOUS 06/2022 stent placed PAST SURGICAL HISTORY OF 12/2015 L3-S1 laminectomy, decompression PAST SURGICAL HISTORY OF 01/16/2017 Lumbar reexploration L3-S1 with laminectomy and decompression FAMILY HISTORY Problem Relation Age of Onset Diabetes Mother Heart Father Diabetes Father Social History: Social History Tobacco Use Smoking status: Former Current packs/day: 0.00 Types: Cigarettes Quit date: 01/21/2010 Years since quittin.3 Smokeless tobacco: Current Types: Chew Tobacco comments: Patient states he has been chewing since he was younger - about a half can. Patient states it is the pouch type. Vaping Use Vaping status: Never Used Substance Use Topics Alcohol use: No Drug use: No Allergies: ALLERGIES Allergen Reactions Verapamil Other: See Comments Severe debilitating cluster headaches Medications: Blood-Glucose Sensor (DEXCOM G7 SENSOR) yesenia APPLY NEW SENSOR EVERY 10 DAYS empagliflozin (JARDIANCE) 10 mg tablet Take 1 tablet by mouth daily with breakfast. insulin glargine U-300 conc (TOUJEO SOLOSTAR U-300 INSULIN) 300 unit/mL (1.5 mL) Inject 38 Units subcutaneously once daily. Insulin [place], Disposable, (BD ULTRAFINE III MINI PEN) 31 gauge x 3/16 Use to inject insulin once daily metFORMIN ER (GLUCOPHAGE XR) 500 mg 24 hr tablet Take 2 tablets by mouth two times a day with meals. rosuvastatin (CRESTOR) 10 mg tablet Take 1 tablet by mouth every afternoon. tirzepatide (MOUNJARO) 10 mg/0.5 mL pen injector Inject 10 mg subcutaneously one time a week. carvedilol (COREG) 25 mg tablet Take 1 tablet by mouth two times a day. chlorthalidone (HYGROTON) 25 mg tablet Take 0.5 tablets by mouth once daily. lisinopril (ZESTRIL) 40 mg tablet Take 1 tablet by mouth once daily. tamsulosin (FLOMAX) 0.4 mg Take 1 capsule by mouth once daily. ticagrelor (BRILINTA) 90 mg tablet Take 1 tablet by mouth two times a day. potassium chloride ER (KLOR-CON) 20 mEq tablet Take 1 tablet by mouth once daily. Lancets Use as instructed to check blood sugar twice daily blood sugar diagnostic (BLOOD GLUCOSE TEST) test strip Use as instructed to check blood sugar twice daily Blood-Glucose Meter Use to check blood sugar 2 times per day Blood Pressure Monitor Use to monitor blood pressure Blood-Glucose Meter,Continuous (DEXCOM G7 GENERATOR ASSEMBLER) [facility] continuously to monitor glucose, IDDM, E 11.3893 aspirin, enteric coated (ECOTRIN LOW STRENGTH) 81 mg EC tablet Take 1 tablet by mouth once daily. REVIEW OF SYSTEMS See HPI PHYSICAL EXAMINATION: BP 137/73 Pulse 91 Temp 36.2 ?C (97.1 ?F) (Temporal) Ht 172.7 cm (5' 7.99) Wt 88 kg (194 lb 0.1 oz) SpO2 99% BMI 29.51 kg/m? General Appearance: Well appearing, alert, in no acute distress, well-hydrated, well nourished.. Neck: Supple, no adenopathy; thyroid symmetric, normal size, no bruits. Lungs: Lungs clear to auscultation. No wheezing, rhonchi, rales.. Heart: RRR without murmur, gallop, or rubs. No ectopy. Extremities: No deformities, edema, skin discoloration, clubbing or cyanosis. Good capillary refill. . Peripheral Pulses: Normal . ASSESSMENT/PLAN: 1. 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 Normal [facility] CNPNon 05-28-2024 CNPN Telephone ([facility]) ERIK CLARKE ([id number]) 1955 M Date Time Provider Department 05/28/24 OPHELIA NULL [facility] During your visit today, we recorded the following information about you: Ophelia Null formerly [facility] 05/28/2024 9:50 AM Signed Patient called PharmD requesting refills for all meds be sent to his new pharmacy, [facility]. Patient unable to use [facility] [employer] moving forward Patient's request for medication is as follows: Requested Prescriptions Signed Prescriptions Disp Refills Blood-Glucose Sensor (DEXCOM G7 SENSOR) yesenia 9 Each 3 Sig: APPLY NEW SENSOR EVERY 10 DAYS Authorizing Provider: DENIS RIVERO Ordering User: OPHELIA NULL empagliflozin (JARDIANCE) 10 mg tablet 90 tablet 3 Sig: Take 1 tablet by mouth daily with breakfast. Authorizing Provider: DENIS RIVERO Ordering User: OPHELIA NULL insulin glargine U-300 conc (TOUJEO SOLOSTAR U-300 INSULIN) 300 unit/mL (1.5 mL) 15 mL 3 Sig: Inject 38 Units subcutaneously once daily. Authorizing Provider: DENIS RIVERO Ordering User: OPHELIA NULL Insulin [place], Disposable, (BD ULTRAFINE III MINI PEN) 31 gauge x 3/16 100 Each 3 Sig: Use to inject insulin once daily Authorizing Provider: DENIS RIVERO Ordering User: OPHELIA NULL metFORMIN ER (GLUCOPHAGE XR) 500 mg 24 hr tablet 360 tablet 3 Sig: Take 2 tablets by mouth two times a day with meals. Authorizing Provider: DENIS RIVERO Ordering User: OPHELIA NULL rosuvastatin (CRESTOR) 10 mg tablet 90 tablet 3 Sig: Take 1 tablet by mouth every afternoon. Authorizing Provider: DENIS RIVERO Ordering User: OPHELIA NULL tirzepatide (MOUNJARO) 10 mg/0.5 mL pen injector 6 mL 1 Sig: Inject 10 mg subcutaneously one time a week. Authorizing Provider: DENIS RIVERO Ordering User: OPHELIA NULL, PharmD, BCACP Primary Care Clinical Industrial Hygiene Manager Allergies As of Date: 05/28/2024 Noted Allergy Reaction VERAPAMIL 02/28/2024 14 - Other: See Comments Comments: Severe debilitating cluster headaches Date Reviewed: 04/29/2024 Reviewed by: Ophelia Null formerly [facility] - Fully Assessed Reason for Visit: Refill Request [94] Visit Diagnoses:Type 2 diabetes mellitus with both eyes affected 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, with long-term current use of insulin (HCC) [E11.3293, Z79.4] Mixed hyperlipidemia [E78.2] Order(s):Order #: [id number] Order #: [id number] Order #: [id number] Order #: [id number] Order #: [id number] Order #: [id number] Order #: [id number] Prescriptions as of 05/28/2024 - Blood-Glucose Sensor (DEXCOM G7 SENSOR) yesenia APPLY NEW SENSOR EVERY 10 DAYS - empagliflozin (JARDIANCE) 10 mg tablet Take 1 tablet by mouth daily with breakfast. - insulin glargine U-300 conc (TOUJEO SOLOSTAR U-300 INSULIN) 300 unit/mL (1.5 mL) Inject 38 Units subcutaneously once daily. - Insulin [place], Disposable, (BD ULTRAFINE III MINI PEN) 31 gauge x 3/16 Use to inject insulin once daily - metFORMIN ER (GLUCOPHAGE XR) 500 mg 24 hr tablet Take 2 tablets by mouth two times a day with meals. - rosuvastatin (CRESTOR) 10 mg tablet Take 1 tablet by mouth every afternoon. - tirzepatide (MOUNJARO) 10 mg/0.5 mL pen injector Inject 10 mg subcutaneously one time a week. - ticagrelor (BRILINTA) 90 mg tablet Take 1 tablet by mouth two times a day. - tamsulosin (FLOMAX) 0.4 mg Take 1 capsule by mouth once daily. - carvedilol (COREG) 25 mg tablet Take 1 tablet by mouth two times a day. - lisinopril (ZESTRIL) 40 mg tablet Take 1 tablet by mouth once daily. - chlorthalidone (HYGROTON) 25 mg tablet Take 0.5 tablets by mouth once daily. - galcanezumab-gnlm (EMGALITY SYRINGE) 300 mg/3 mL (100 mg/mL x 3) syringe Do not shake. Inject three 100 ml doses for every month as long as headaches persist. - potassium chloride ER (KLOR-CON) 20 mEq tablet Take 1 tablet by mouth once daily. - Lancets Use as instructed to check blood sugar twice daily - blood sugar diagnostic (BLOOD GLUCOSE TEST) test strip Use as instructed to check blood sugar twice daily - Blood-Glucose Meter Use to check blood sugar 2 times per day - Blood Pressure Monitor Use to monitor blood pressure - Blood-Glucose Meter,Continuous (DEXCOM G7 GENERATOR ASSEMBLER) [facility] [place] continuously to monitor glucose, IDDM, E 11.2283 - aspirin, enteric coated (ECOTRIN LOW STRENGTH) 81 mg EC tablet Take 1 tablet by mouth once daily. Problem List As Of Date 05/28/2024 Noted Resolved Type 2 diabetes mellitus with both eyes affecte*01/22/2012 Essential hypertension [I10] 01/22/2012 Hyperlipidemia [E78.5] 01/22/2012 Benign prostatic hyperplasia with lower urinary*01/22/2012 Colon polyps [K63.5] 07/15/2014 Other and unspecified angina pectoris [I20.9] 07/15/2014 10/13/19 (more content not included)... Normal [facility] Jose Miguel 05-16-2024 ANNIEN Telephone ([facility]) SHARMILAERIK Carver ([id number]) 1955 M Date Time Provider Department 05/16/24 OPHELIA NULL [facility] During your visit today, we recorded the following information about you: Ophelia Null RPh 05/16/2024 3:06 PM Signed Patient called and LMOM for PharmD requesting refills for lisinopril and carvedilol to be sent to [facility] Patient's request for medication is as follows: Requested Prescriptions Signed Prescriptions Disp Refills carvedilol (COREG) 25 mg tablet 180 tablet 3 Sig: Take 1 tablet by mouth two times a day. Authorizing Provider: DENIS RIVERO Ordering User: OPHELIA NULL lisinopril (ZESTRIL) 40 mg tablet 90 tablet 3 Sig: Take 1 tablet by mouth once daily. Authorizing Provider: DENIS RIVERO Ordering User: OPHELIA NULL, PharmD, [facility] Primary Care Clinical Industrial Hygiene Manager Allergies As of Date: 05/16/2024 Noted Allergy Reaction VERAPAMIL 02/28/2024 14 - Other: See Comments Comments: Severe debilitating cluster headaches Date Reviewed: 04/29/2024 Reviewed by: Ophelia Null formerly [facility] - Fully Assessed Reason for Visit: Refill Request [94] Visit Diagnoses:Primary hypertension [I10] Nonrheumatic aortic (valve) stenosis [I35.0] HOCM (hypertrophic obstructive cardiomyopathy) ([facility]) [I42.1] Order(s):Order #: [id number] Order #: [id number] Prescriptions as of 05/16/2024 - carvedilol (COREG) 25 mg tablet Take 1 tablet by mouth two times a day. - lisinopril (ZESTRIL) 40 mg tablet Take 1 tablet by mouth once daily. - chlorthalidone (HYGROTON) 25 mg tablet Take 0.5 tablets by mouth once daily. - Insulin [place], Disposable, (BD ULTRAFINE III MINI PEN) 31 gauge x 3/16 USE AND DISCARD 1 PEN NEEDLE ONCE DAILY WITH INSULIN PEN - empagliflozin (JARDIANCE) 10 mg tablet Take 1 tablet by mouth daily with breakfast. - tirzepatide (MOUNJARO) 10 mg/0.5 mL pen injector Inject 10 mg subcutaneously one time a week. - tamsulosin (FLOMAX) 0.4 mg TAKE 1 CAPSULE ONCE DAILY - insulin glargine U-300 conc (TOUJEO SOLOSTAR U-300 INSULIN) 300 unit/mL (1.5 mL) Inject 38 Units subcutaneously once daily. - galcanezumab-gnlm (EMGALITY SYRINGE) 300 mg/3 mL (100 mg/mL x 3) syringe Do not shake. Inject three 100 ml doses for every month as long as headaches persist. - rosuvastatin (CRESTOR) 10 mg tablet take 1 tablet once daily - iv contrast (will be provided with radiology test) MRA Carotid WO/W Inject, intravenously, once for 1 dose. No IV access, insert saline lock prior to the beginning of sedation, infusion, injection of imaging exam. Discontinue saline lock post exam. If Pt. has a central line or IVAD, may access for administration according to line specific nursing protocol. Once exam is complete flush line and de-access according to line specific nursing protocol in the MR contrast administration guidelines link. - potassium chloride ER (KLOR-CON) 20 mEq tablet Take 1 tablet by mouth once daily. - Lancets Use as instructed to check blood sugar twice daily - blood sugar diagnostic (BLOOD GLUCOSE TEST) test strip Use as instructed to check blood sugar twice daily - Blood-Glucose Meter Use to check blood sugar 2 times per day - Blood-Glucose Sensor (DEXCOM G7 SENSOR) yesenia APPLY NEW SENSOR EVERY 10 DAYS - BRILINTA 90 mg tablet take 1 tablet twice a day - metFORMIN ER (GLUCOPHAGE XR) 500 mg 24 hr tablet TAKE 2 TABLETS 2 TIMES DAILY WITH MEALS - Blood Pressure Monitor Use to monitor blood pressure - Blood-Glucose Meter,Continuous (DEXCOM G7 GENERATOR ASSEMBLER) [facility] [place] continuously to monitor glucose, IDDM, E 11.9504 - aspirin, enteric coated (ECOTRIN LOW STRENGTH) 81 mg EC tablet Take 1 tablet by mouth once daily. Problem List As Of Date 05/16/2024 Noted Resolved Type 2 diabetes mellitus with both eyes affecte*01/22/2012 Essential hypertension [I10] 01/22/2012 Hyperlipidemia [E78.5] 01/22/2012 Benign prostatic hyperplasia with lower urinary*01/22/2012 Colon polyps [K63.5] 07/15/2014 Other and unspecified angina pectoris [I20.9] 07/15/2014 10/12/2020 Erectile dysfunction [N52.9] 08/26/2014 Prolapsed lumbar disc [M51.26] 01/19/2017 Stable angina (HCC) [I20.89] 11/13/2017 Chewing tobacco nicotine dependence without com*08/27/2018 Lumbar spondylosis [M47.816] 08/27/2018 DDD (degenerative disc disease), lumbar [M51.36*08/27/2018 Lumbar radiculopathy [M54.16] 08/27/2018 Abnormal finding on echocardiogram [R93.1] 08/27/2018 10/12/2020 Heart murmur [R01.1] 08/27/2018 05/30/2019 Bradycardia [R00.1] 04/22/2019 08/17/2023 Nicotine use disorder, F17.2 [F17.200] 04/23/2019 Nonrheumatic aortic (valve) stenosis [I35.0] 05/30/2019 Coronary artery disease involving [place] martino*05/30/2019 Rotator cuff syndrome of left shoulder [M75.102]01/28/2020 Status post insertion of drug eluting rachell (more content not included)... Normal [facility] CNOVon 04-29-2024 CNOV [facility] ERIK CLARKE ([id number]) 1955 [place] Date Time Provider Department 04/29/24 9:00 AM OPHELIA NULL [facility] During your visit today, we recorded the following information about you: Ophelia Null formerly [facility] 04/29/2024 9:27 AM Signed Primary Care Pharmacy Visit CC (Reason for Consult): (E11.9, Z79.4) Type 2 diabetes mellitus without complication, with long-term current use of insulin ([facility]) (primary encounter diagnosis) Goal(s): A1c <7% Last Collaborating Provider Visit: 12/06/23 Erik Clarke is a 68 year old male presenting for follow up visit in person. Patient consents to pharmacy collaborative practice agreement. Last Pharmacy Visit: 03/04/24 - Mounjaro increased to 10 mg weekly HPI: Reports doing well Confirmed getting Mounjaro 10 mg, tolerating well; has had 2 doses of 10 mg so far, received a 3 month supply States he thinks the Mounjaro has been working better now on the higher dose Also has been walking every day Requesting chlorthalidone refill to [facility] Current DM Medications: Metformin ER 500 mg #2 twice daily Jardiance 10 mg once daily Mounjaro 10 mg once weekly on Fridays Toujeo 38 units once daily Previously Trialed DM Meds: Glimepiride - changed to insulin Ariella Moser - can't remember why he stopped it Jardiance 25mg - balanitis Diet Denies any recent changes GLYCEMIC CONTROL: Glucometer present at visit: Yes; also connected to YUPIQ via smartphone during visit Hypoglycemia: Yes; however, reports one episode but did not have any symptoms CGM Data Past medical history reviewed. ALLERGIES Allergen Reactions Verapamil Other: See Comments Severe debilitating cluster headaches Current Outpatient Medications Medication Sig Dispense Refill chlorthalidone (HYGROTON) 25 mg tablet Take 0.5 tablets by mouth once daily. 45 tablet 2 carvedilol (COREG) 25 mg tablet Take 1 tablet by mouth two times a day. 90 tablet 3 Insulin [place], Disposable, (BD ULTRAFINE III MINI PEN) 31 gauge x 3/16 USE AND DISCARD 1 PEN NEEDLE ONCE DAILY WITH INSULIN PEN 90 Each 3 empagliflozin (JARDIANCE) 10 mg tablet Take 1 tablet by mouth daily with breakfast. 90 tablet 3 tirzepatide (MOUNJARO) 10 mg/0.5 mL pen injector Inject 10 mg subcutaneously one time a week. 6 mL 1 tamsulosin (FLOMAX) 0.4 mg TAKE 1 CAPSULE ONCE DAILY 90 capsule 1 insulin glargine U-300 conc (TOUJEO SOLOSTAR U-300 INSULIN) 300 unit/mL (1.5 mL) Inject 38 Units subcutaneously once daily. galcanezumab-gnlm (EMGALITY SYRINGE) 300 mg/3 mL (100 mg/mL x 3) syringe Do not shake. Inject three 100 ml doses for every month as long as headaches persist. 3 mL 5 rosuvastatin (CRESTOR) 10 mg tablet take 1 tablet once daily 90 tablet 3 iv contrast (will be provided with radiology test) MRA Carotid WO/W Inject, intravenously, once for 1 dose. No IV access, insert saline lock prior to the beginning of sedation, infusion, injection of imaging exam. Discontinue saline lock post exam. If Pt. has a central line or IVAD, may access for administration according to line specific nursing protocol. Once exam is complete flush line and de-access according to line specific nursing protocol in the MR contrast administration guidelines link. 1 Each 0 lisinopril (ZESTRIL) 40 mg tablet Take 1 tablet by mouth once daily. 90 tablet 3 potassium chloride ER (KLOR-CON) 20 mEq tablet Take 1 tablet by mouth once daily. 5 tablet 0 Lancets Use as instructed to check blood sugar twice daily 200 Each 3 blood sugar diagnostic (BLOOD GLUCOSE TEST) test strip Use as instructed to check blood sugar twice daily 200 Each 3 Blood-Glucose Meter Use to check blood sugar 2 times per day 1 Each 0 Blood-Glucose Sensor (DEXCOM G7 SENSOR) yesenia APPLY NEW SENSOR EVERY 10 DAYS 9 Each 3 BRILINTA 90 mg tablet take 1 tablet twice a day 180 tablet 3 metFORMIN ER (GLUCOPHAGE XR) 500 mg 24 hr tablet TAKE 2 TABLETS 2 TIMES DAILY WITH MEALS 360 tablet 3 Blood Pressure Monitor Use to monitor blood pressure 1 Each 0 Blood-Glucose Meter,Continuous (DEXCOM G7 GENERATOR ASSEMBLER) misc Use continuously to monitor glucose, IDDM, E 11.3293 aspirin, enteric coated (ECOTRIN LOW STRENGTH) 81 mg EC tablet Take 1 tablet by mouth once daily. No current facility-administered medications for this visit. Pill bottles are not present. Adherence: denies missed doses. Rx coverage: Payor: MEDICARE / Plan: MEDICARE A AND B / Product Type: Medicare / Medications affordable? Yes PHARMACOTHERAPY PREVENTATIVE MEDS: On MARY BETH/ARB: Yes On Statin: Yes On ASA: Yes EXAM: There were no vitals taken for this visit. Last 3 Encounter BP Readings: Date: BP: 02/28/2024 134/80 01/01/2024 153/89 12/27/2023 127/85 Wt: 89 kg (196 lb 3.4 oz) BMI: 29.84 kg/(m2) LABS: Lab Results Component Value Date HBA1C 7.3 01/23/2024 HBA1C 7.5 08/14/ (more content not included)... [facility] ERIK CLARKE ([id number]) 1955 M Date Time Provider Department 04/04/24 OPHELIA NULL [facility] During your visit today, we recorded the following information about you: Ophelia Null RPh 04/04/2024 2:11 PM Signed Patient called and LMOM for PharmD regarding Mounjaro and Jardiance. Called and spoke with patient. States he never got higher dose of Mounjaro as prescribed at last visit. Also states received a letter stating Jardiance will not be able to be filled at [facility] moving forward. Called and spoke with Malka at [facility]. States Mounjaro must be filled at local pharmacy; however, Jardiance is able to be filled at mailorder pharmacy. Ran test claims to ensure Rx were covered, Mounjaro at local pharmacy and Jardiance through mailorder. Sent Rx to pharmacies, Mounjaro ([facility] in [place]) and Jardiance ([facility]), per patient request. Ophelia Null, PharmD, BCACP Primary Care Clinical Industrial Hygiene Manager Allergies As of Date: 04/04/2024 Noted Allergy Reaction VERAPAMIL 02/28/2024 14 - Other: See Comments Comments: Severe debilitating cluster headaches Date Reviewed: 03/04/2024 Reviewed by: Ophelia Null RPh - Fully Assessed Reason for Visit: Medication Update [1676] Visit Diagnosis:Type 2 diabetes mellitus with both eyes affected 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, with long-term current use of insulin ([facility]) [E11.3293, Z79.4] Order(s):Order #: [id number] Order #: [id number] Prescriptions as of 04/04/2024 - empagliflozin (JARDIANCE) 10 mg tablet Take 1 tablet by mouth daily with breakfast. - tirzepatide (MOUNJARO) 10 mg/0.5 mL pen injector Inject 10 mg subcutaneously one time a week. - tamsulosin (FLOMAX) 0.4 mg TAKE 1 CAPSULE ONCE DAILY - insulin glargine U-300 conc (TOUJEO SOLOSTAR U-300 INSULIN) 300 unit/mL (1.5 mL) Inject 38 Units subcutaneously once daily. - galcanezumab-gnlm (EMGALITY SYRINGE) 300 mg/3 mL (100 mg/mL x 3) syringe Do not shake. Inject three 100 ml doses for every month as long as headaches persist. - rosuvastatin (CRESTOR) 10 mg tablet take 1 tablet once daily - iv contrast (will be provided with radiology test) MRA Carotid WO/W Inject, intravenously, once for 1 dose. No IV access, insert saline lock prior to the beginning of sedation, infusion, injection of imaging exam. Discontinue saline lock post exam. If Pt. has a central line or IVAD, may access for administration according to line specific nursing protocol. Once exam is complete flush line and de-access according to line specific nursing protocol in the MR contrast administration guidelines link. - chlorthalidone (HYGROTON) 25 mg tablet Take 0.5 tablets by mouth once daily. - carvedilol (COREG) 25 mg tablet Take 1 tablet by mouth two times a day. - lisinopril (ZESTRIL) 40 mg tablet Take 1 tablet by mouth once daily. - potassium chloride ER (KLOR-CON) 20 mEq tablet Take 1 tablet by mouth once daily. - Lancets Use as instructed to check blood sugar twice daily - blood sugar diagnostic (BLOOD GLUCOSE TEST) test strip Use as instructed to check blood sugar twice daily - Blood-Glucose Meter Use to check blood sugar 2 times per day - Blood-Glucose Sensor (Anne Fogarty G7 SENSOR) yesenia APPLY NEW SENSOR EVERY 10 DAYS - BRILINTA 90 mg tablet take 1 tablet twice a day - metFORMIN ER (GLUCOPHAGE XR) 500 mg 24 hr tablet TAKE 2 TABLETS 2 TIMES DAILY WITH MEALS - BD ULTRAFINE III MINI PEN 31 gauge x 3/16 USE AND DISCARD 1 PEN NEEDLE ONCE DAILY WITH INSULIN PEN - Blood Pressure Monitor Use to monitor blood pressure - Blood-Glucose Meter,Continuous (DEXCOM G7 GENERATOR ASSEMBLER) misc Use continuously to monitor glucose, IDDM, E 11.3293 - aspirin, enteric coated (ECOTRIN LOW STRENGTH) 81 mg EC tablet Take 1 tablet by mouth once daily. Problem List As Of Date 04/04/2024 Noted Resolved Type 2 diabetes mellitus with both eyes affecte*01/22/2012 Essential hypertension [I10] 01/22/2012 Hyperlipidemia [E78.5] 01/22/2012 Benign prostatic hyperplasia with lower urinary*01/22/2012 Colon polyps [K63.5] 07/15/2014 Other and unspecified angina pectoris [I20.9] 07/15/2014 10/12/2020 Erectile dysfunction [N52.9] 08/26/2014 Prolapsed lumbar disc [M51.26] 01/19/2017 Stable angina (HCC) [I20.89] 11/13/2017 Chewing tobacco nicotine dependence without com*08/27/2018 Lumbar spondylosis [M47.816] 08/27/2018 DDD (degenerative disc disease), lumbar [M51.36*08/27/2018 Lumbar radiculopathy [M54.16] 08/27/2018 Abnormal finding on echocardiogram [R93.1] 08/27/2018 10/12/2020 Heart murmur [R01.1] 08/27/2018 05/30/2019 Bradycardia [R00.1] 04/22/2019 08/17/2023 Nicotine use disorder, F17.2 [F17.200] 04/23/2019 Nonrheumatic aortic (valve) stenosis [I35.0] 05/30/2019 Coronary artery disease involving [place] martino*05/30/2019 Rotat (more content not included)... Normal [facility] CNOVon 03-04-2024 CNOV [facility] ) ERIK CLARKE ([id number]) 1955 M Date Time Provider Department 03/04/24 9:00 AM OPHELIA NULL [facility] During your visit today, we recorded the following information about you: Ophelia Null formerly [facility] 03/04/2024 9:29 AM Signed Primary Care Pharmacy Visit CC (Reason for Consult): (E11.9, Z79.4) Type 2 diabetes mellitus without complication, with long-term current use of insulin ([facility]) (primary encounter diagnosis) Goal(s): A1c <7% Last Collaborating Provider Visit: 12/06/23 Erik Clarke is a 68 year old male presenting for follow up visit in person. Patient consents to pharmacy collaborative practice agreement. Last Pharmacy Visit: 01/01/24 Interim Events: - 01/24/24 labs - BMP WNL; A1c improvement from 7.5% to 7.3% - 02/28/24 cardio visit - no med changes HPI: Reports doing well States he hasn't had any headaches in last 6 weeks Recently ended cardiac rehab States BP has been better lately States BG has been a little high recently, started noticing when he changed last sensor Current DM Medications: Metformin ER 500 mg #2 twice daily Jardiance 10 mg once daily Mounjaro 7.5 mg once weekly on Fridays Toujeo 38 units once daily Previously Trialed DM Meds: Glimepiride - changed to insulin Bylevar Moser - can't remember why he stopped it Jardiance 25mg - yasmine Current HTN Meds: Lisinopril 40 mg once daily Chlorthalidone 12.5 mg once daily Carvedilol 25 mg twice daily Diet Denies any recent changes Had a couple cups of coffee this morning GLYCEMIC CONTROL: Glucometer present at visit: Yes Hypoglycemia: No CGM Data Past medical history reviewed. ALLERGIES Allergen Reactions Verapamil Other: See Comments Severe debilitating cluster headaches Current Outpatient Medications Medication Sig Dispense Refill tamsulosin (FLOMAX) 0.4 mg TAKE 1 CAPSULE ONCE DAILY 90 capsule 1 insulin glargine U-300 conc (TOUJEO SOLOSTAR U-300 INSULIN) 300 unit/mL (1.5 mL) Inject 38 Units subcutaneously once daily. galcanezumab-gnlm (EMGALITY SYRINGE) 300 mg/3 mL (100 mg/mL x 3) syringe Do not shake. Inject three 100 ml doses for every month as long as headaches persist. 3 mL 5 rosuvastatin (CRESTOR) 10 mg tablet take 1 tablet once daily 90 tablet 3 iv contrast (will be provided with radiology test) MRA Carotid WO/W Inject, intravenously, once for 1 dose. No IV access, insert saline lock prior to the beginning of sedation, infusion, injection of imaging exam. Discontinue saline lock post exam. If Pt. has a central line or IVAD, may access for administration according to line specific nursing protocol. Once exam is complete flush line and de-access according to line specific nursing protocol in the MR contrast administration guidelines link. 1 Each 0 chlorthalidone (HYGROTON) 25 mg tablet Take 0.5 tablets by mouth once daily. 45 tablet 1 carvedilol (COREG) 25 mg tablet Take 1 tablet by mouth two times a day. 90 tablet 3 lisinopril (ZESTRIL) 40 mg tablet Take 1 tablet by mouth once daily. 90 tablet 3 potassium chloride ER (KLOR-CON) 20 mEq tablet Take 1 tablet by mouth once daily. 5 tablet 0 Lancets Use as instructed to check blood sugar twice daily 200 Each 3 blood sugar diagnostic (BLOOD GLUCOSE TEST) test strip Use as instructed to check blood sugar twice daily 200 Each 3 Blood-Glucose Meter Use to check blood sugar 2 times per day 1 Each 0 tirzepatide (MOUNJARO) 7.5 mg/0.5 mL pen injector Inject 7.5 mg subcutaneously one time a week. 6 mL 1 Blood-Glucose Sensor (Anne Fogarty G7 SENSOR) yesenia APPLY NEW SENSOR EVERY 10 DAYS 9 Each 3 BRILINTA 90 mg tablet take 1 tablet twice a day 180 tablet 3 metFORMIN ER (GLUCOPHAGE XR) 500 mg 24 hr tablet TAKE 2 TABLETS 2 TIMES DAILY WITH MEALS 360 tablet 3 BD ULTRAFINE III MINI PEN 31 gauge x 3/16 USE AND DISCARD 1 PEN NEEDLE ONCE DAILY WITH INSULIN PEN 90 Each 3 Blood Pressure Monitor Use to monitor blood pressure 1 Each 0 empagliflozin (JARDIANCE) 10 mg tablet Take 1 tablet by mouth daily with breakfast. 90 tablet 3 Blood-Glucose Meter,Continuous (DEXCOM G7 GENERATOR ASSEMBLER) [facility] Use continuously to monitor glucose, IDDM, E 11.6892 aspirin, enteric coated (ECOTRIN LOW STRENGTH) 81 mg EC tablet Take 1 tablet by mouth once daily. No current facility-administered medications for this visit. Pill bottles are not present. Adherence: denies missed doses. Rx coverage: Payor: MEDICARE / Plan: MEDICARE A AND B / Product Type: Medicare / Medications affordable? Yes PHARMACOTHERAPY PREVENTATIVE MEDS: On MARY BETH/ARB: Yes On Statin: Yes On ASA: Yes EXAM: There were no vitals taken for this visit. Last 3 Encounter BP Readings: Date: BP: 02/28/2024 134/80 01/01/2024 153/89 12/27/2023 127/85 Wt: 89 kg (196 lb 3.4 oz) BMI: 29.84 kg/(m2) LABS: Lab Results Component Value Date HBA1C 7.3 (more content not included)... Normal [facility] Jose Miguel 03-04-2024 CNPN Telephone [facility]) ERIK CLARKE ([id number]) 1955 M Date Time Provider Department 03/04/24 OPHELIA NULL [facility] During your visit today, we recorded the following information about you: Ophelia Null RPh 03/04/2024 9:32 AM Signed Patient seen by PharmD today. Would benefit from titration of Mounjaro dose for additional glycemic lowering. Patient requesting sent to [facility] mailorder pharmacy. Mounjaro not yet included in pharmacist CPA; pending for provider signature. Patient's request for medication is as follows: Requested Prescriptions Pending Prescriptions Disp Refills tirzepatide (MOUNJARO) 10 mg/0.5 mL pen injector 6 mL 2 Sig: Inject 10 mg subcutaneously one time a week. Prescription(s) as above. Please process accordingly. Ophelia Null, PharmD, BCACP Primary Care Clinical Industrial Hygiene Manager Allergies As of Date: 03/04/2024 Noted Allergy Reaction VERAPAMIL 02/28/2024 14 - Other: See Comments Comments: Severe debilitating cluster headaches Date Reviewed: 03/04/2024 Reviewed by: Ophelia Null, formerly [facility] - Fully Assessed Reason for Visit: Medication Update [1728] Cmt: Leeroyunjaro Order(s):Order #: [id number] Prescriptions as of 03/04/2024 - tirzepatide (MOUNJARO) 10 mg/0.5 mL pen injector Inject 10 mg subcutaneously one time a week. - tamsulosin (FLOMAX) 0.4 mg TAKE 1 CAPSULE ONCE DAILY - insulin glargine U-300 conc (TOUJEO SOLOSTAR U-300 INSULIN) 300 unit/mL (1.5 mL) Inject 38 Units subcutaneously once daily. - galcanezumab-gnlm (EMGALITY SYRINGE) 300 mg/3 mL (100 mg/mL x 3) syringe Do not shake. Inject three 100 ml doses for every month as long as headaches persist. - rosuvastatin (CRESTOR) 10 mg tablet take 1 tablet once daily - iv contrast (will be provided with radiology test) MRA Carotid WO/W Inject, intravenously, once for 1 dose. No IV access, insert saline lock prior to the beginning of sedation, infusion, injection of imaging exam. Discontinue saline lock post exam. If Pt. has a central line or IVAD, may access for administration according to line specific nursing protocol. Once exam is complete flush line and de-access according to line specific nursing protocol in the MR contrast administration guidelines link. - chlorthalidone (HYGROTON) 25 mg tablet Take 0.5 tablets by mouth once daily. - carvedilol (COREG) 25 mg tablet Take 1 tablet by mouth two times a day. - lisinopril (ZESTRIL) 40 mg tablet Take 1 tablet by mouth once daily. - potassium chloride ER (KLOR-CON) 20 mEq tablet Take 1 tablet by mouth once daily. - Lancets Use as instructed to check blood sugar twice daily - blood sugar diagnostic (BLOOD GLUCOSE TEST) test strip Use as instructed to check blood sugar twice daily - Blood-Glucose Meter Use to check blood sugar 2 times per day - Blood-Glucose Sensor (DEXCOM G7 SENSOR) yesenia APPLY NEW SENSOR EVERY 10 DAYS - BRILINTA 90 mg tablet take 1 tablet twice a day - metFORMIN ER (GLUCOPHAGE XR) 500 mg 24 hr tablet TAKE 2 TABLETS 2 TIMES DAILY WITH MEALS - BD ULTRAFINE III MINI PEN 31 gauge x 3/16 USE AND DISCARD 1 PEN NEEDLE ONCE DAILY WITH INSULIN PEN - Blood Pressure Monitor Use to monitor blood pressure - empagliflozin (JARDIANCE) 10 mg tablet Take 1 tablet by mouth daily with breakfast. - Blood-Glucose Meter,Continuous (DEXCOM G7 GENERATOR ASSEMBLER) misc Use continuously to monitor glucose, IDDM, E 11.3293 - aspirin, enteric coated (ECOTRIN LOW STRENGTH) 81 mg EC tablet Take 1 tablet by mouth once daily. 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 affecte*01/22/2012 Essential hypertension [I10] 01/22/2012 Hyperlipidemia [E78.5] 01/22/2012 Benign prostatic hyperplasia with lower urinary*01/22/2012 Colon polyps [K63.5] 07/15/2014 Other and unspecified angina pectoris [I20.9] 07/15/2014 10/12/2020 Erectile dysfunction [N52.9] 08/26/2014 Prolapsed lumbar disc [M51.26] 01/19/2017 Stable angina (HCC) [I20.89] 11/13/2017 Chewing tobacco nicotine dependence without com*08/27/2018 Lumbar spondylosis [M47.816] 08/27/2018 DDD (degenerative disc disease), lumbar [M51.36*08/27/2018 Lumbar radiculopathy [M54.16] 08/27/2018 Abnormal finding on echocardiogram [R93.1] 08/27/2018 10/12/2020 Heart murmur [R01.1] 08/27/2018 05/30/2019 Bradycardia [R00.1] 04/22/2019 08/17/2023 Nicotine use disorder, F17.2 [F17.200] 04/23/2019 Nonrheumatic aortic (valve) stenosis [I35.0] 05/30/2019 Coronary artery disease involving [place] martino*05/30/2019 Rotator cuff syndrome of left shoulder [M75.102]01/28/2020 Status post insertion of drug eluting coronary *08/28/2022 HOCM (hypertrophic obstructive cardiomyopathy) *05/15/2023 Discharge planning issues [Z75.8] 08/14/2023 Encounter for support and coordination of trans*08/14/2023 Post-op pain [G89.18] 08/16/2023 Hypo (more content not included)... Normal [facility] CNOVon 02-28-2024 CNOV Office Visit ([facility] ) ERIK CLARKE ([id number]) 1955 M Date Time Provider Department 02/28/24 8:00 AM ANTOINETTE ALICEA During your visit today, we recorded the following information about you: Pulse Blood pressure Weight 81/minute 134/80 89 kg Antoinette Alicea APRN.CNP 03/03/2024 4:03 PM Signed [facility] John Espinoza Department of Cardiovascular Medicine SECTION OF CLINICAL CARDIOLOGY OUTPATIENT VISIT DATE February 28, 2024 OUTPATIENT VISIT TYPE ESTABLISHED PRIMARY CARE PHYSICIAN: Denis Rivero [address] [place] [address] REFERRING PHYSICIAN: Antoinette Alicea [address] [place] [address] CHIEF COMPLAINT: Follow Up HISTORY OF PRESENT ILLNESS: Mr. Clarke is a 68 year old male with PMH of hokum status post myomectomy and AVR earlier this year, hyperlipidemia, hypertension, DM 1, who presents today for a cardiovascular medicine follow-up visit after I saw him in December. At that time I ordered an echocardiogram to reevaluate his valve and EF. We reviewed this study today. His EF has improved and his valve is without any regurgitation. He denies shortness of breath, chest pain, palpitations, dizziness, lightheadedness, lower extremity edema, PND, orthopnea, presyncope, syncope, or claudication symptoms Subjective PAST MEDICAL HISTORY Diagnosis Date BPH (benign prostatic hypertrophy) with urinary retention 01/22/2012 Bradycardia Coronary artery disease involving [place] coronary artery of [place] heart without angina pectoris 05/30/2019 History: s/p CATRACHITA. On Brilinta ED (erectile dysfunction) HOCM (hypertrophic obstructive cardiomyopathy) ([facility]) 05/15/2023 History: HOCM Hyperlipidemia LDL goal < 100 01/22/2012 Hypertension 01/22/2012 Nonrheumatic aortic (valve) stenosis 05/30/2019 History: Severe Obesity S/P AVR 09/18/2023 S/P myomectomy 09/18/2023 Status post insertion of drug eluting coronary artery stent 08/28/2022 Type 2 diabetes mellitus not at goal 01/22/2012 PAST SURGICAL HISTORY Procedure Laterality Date CARDIAC CATHETERIZATION HX 1999, 2004 no blockages, mildly leaky valve LEFT HEART CATH,PERCUTANEOUS 06/2022 stent placed PAST SURGICAL HISTORY OF 12/2015 L3-S1 laminectomy, decompression PAST SURGICAL HISTORY OF 01/16/2017 Lumbar reexploration L3-S1 with laminectomy and decompression Social History Tobacco Use Smoking status: Former Current packs/day: 0.00 Types: Cigarettes Quit date: 01/21/2010 Years since quittin.1 Smokeless tobacco: Current Types: Chew Tobacco comments: Patient states he has been chewing since he was younger - about a half can. Patient states it is the pouch type. Vaping Use Vaping status: Never Used Substance Use Topics Alcohol use: No Drug use: No FAMILY HISTORY Problem Relation Age of Onset Diabetes Mother Heart Father Diabetes Father ALLERGIES: ALLERGIES No Known Allergies MEDICATIONS: tamsulosin (FLOMAX) 0.4 mg TAKE 1 CAPSULE ONCE DAILY insulin glargine U-300 conc (TOUJEO SOLOSTAR U-300 INSULIN) 300 unit/mL (1.5 mL) Inject 38 Units subcutaneously once daily. galcanezumab-gnlm (EMGALITY SYRINGE) 300 mg/3 mL (100 mg/mL x 3) syringe Do not shake. Inject three 100 ml doses for every month as long as headaches persist. rosuvastatin (CRESTOR) 10 mg tablet take 1 tablet once daily iv contrast (will be provided with radiology test) MRA Carotid WO/W Inject, intravenously, once for 1 dose. No IV access, insert saline lock prior to the beginning of sedation, infusion, injection of imaging exam. Discontinue saline lock post exam. If Pt. has a central line or IVAD, may access for administration according to line specific nursing protocol. Once exam is complete flush line and de-access according to line specific nursing protocol in the MR contrast administration guidelines link. chlorthalidone (HYGROTON) 25 mg tablet Take 0.5 tablets by mouth once daily. carvedilol (COREG) 25 mg tablet Take 1 tablet by mouth two times a day. lisinopril (ZESTRIL) 40 mg tablet Take 1 tablet by mouth once daily. potassium chloride ER (KLOR-CON) 20 mEq tablet Take 1 tablet by mouth once daily. Lancets Use as instructed to check blood sugar twice daily blood sugar diagnostic (BLOOD GLUCOSE TEST) test strip Use as instructed to check blood sugar twice daily Blood-Glucose Meter Use to check blood sugar 2 times per day tirzepatide (MOUNJARO) 7.5 mg/0.5 mL pen injector Inject 7.5 mg subcutaneously one time a week. Blood-Glucose Sensor (Anne Fogarty G7 SENSOR) yesenia APPLY NEW SENSOR EVERY 10 DAYS BRILINTA 90 mg tablet take 1 tablet twice a day metFORMIN ER (GLUCOPHAGE XR) 500 mg 24 hr tablet TAKE 2 TABLETS 2 TIMES DAILY WITH MEALS BD ULTRAFINE III MINI PEN 31 gauge x 3/16 USE AND DISCARD 1 PEN NEEDLE (more content not included)... Normal [facility] Jose Miguel 02-01-2024 SHAKILA Telephone (MELODY) ERIK CALRKE ([id number]) 1955 M Date Time Provider Department 02/01/24 BURKE BARRON During your visit today, we recorded the following information about you: Valente Medellin RN 02/01/2024 11:29 AM Signed Received two EKG reports from [facility]. Obtained 01/29/24 Placed in scan basket Allergies As of Date: 02/01/2024 (No Known Allergies) Date Reviewed: 01/01/2024 Reviewed by: Ophelia Null formerly [facility] - Fully Assessed Reason for Visit: Received Outside Medical Records [[id number]] Cmt: EKG Prescriptions as of 02/01/2024 - insulin glargine U-300 conc (TOUJEO SOLOSTAR U-300 INSULIN) 300 unit/mL (1.5 mL) Inject 38 Units subcutaneously once daily. - galcanezumab-gnlm (EMGALITY SYRINGE) 300 mg/3 mL (100 mg/mL x 3) syringe Do not shake. Inject three 100 ml doses for every month as long as headaches persist. - rosuvastatin (CRESTOR) 10 mg tablet take 1 tablet once daily - iv contrast (will be provided with radiology test) MRA Carotid WO/W Inject, intravenously, once for 1 dose. No IV access, insert saline lock prior to the beginning of sedation, infusion, injection of imaging exam. Discontinue saline lock post exam. If Pt. has a central line or IVAD, may access for administration according to line specific nursing protocol. Once exam is complete flush line and de-access according to line specific nursing protocol in the MR contrast administration guidelines link. - chlorthalidone (HYGROTON) 25 mg tablet Take 0.5 tablets by mouth once daily. - carvedilol (COREG) 25 mg tablet Take 1 tablet by mouth two times a day. - lisinopril (ZESTRIL) 40 mg tablet Take 1 tablet by mouth once daily. - potassium chloride ER (KLOR-CON) 20 mEq tablet Take 1 tablet by mouth once daily. - Lancets Use as instructed to check blood sugar twice daily - blood sugar diagnostic (BLOOD GLUCOSE TEST) test strip Use as instructed to check blood sugar twice daily - Blood-Glucose Meter Use to check blood sugar 2 times per day - tirzepatide (MOUNJARO) 7.5 mg/0.5 mL pen injector Inject 7.5 mg subcutaneously one time a week. - Blood-Glucose Sensor (Anne Fogarty G7 SENSOR) yesenia APPLY NEW SENSOR EVERY 10 DAYS - tamsulosin (FLOMAX) 0.4 mg Take 1 capsule by mouth once daily. - BRILINTA 90 mg tablet take 1 tablet twice a day - metFORMIN ER (GLUCOPHAGE XR) 500 mg 24 hr tablet TAKE 2 TABLETS 2 TIMES DAILY WITH MEALS - sourceasy ULTRAFINE III MINI PEN 31 gauge x 3/16 USE AND DISCARD 1 PEN NEEDLE ONCE DAILY WITH INSULIN PEN - Blood Pressure Monitor Use to monitor blood pressure - empagliflozin (JARDIANCE) 10 mg tablet Take 1 tablet by mouth daily with breakfast. - Blood-Glucose Meter,Continuous (DEXCOM G7 GENERATOR ASSEMBLER) misc Use continuously to monitor glucose, IDDM, E 11.3293 - aspirin, enteric coated (ECOTRIN LOW STRENGTH) 81 mg EC tablet Take 1 tablet by mouth once daily. 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 affecte*01/22/2012 Essential hypertension [I10] 01/22/2012 Hyperlipidemia [E78.5] 01/22/2012 Benign prostatic hyperplasia with lower urinary*01/22/2012 Colon polyps [K63.5] 07/15/2014 Other and unspecified angina pectoris [I20.9] 07/15/2014 10/12/2020 Erectile dysfunction [N52.9] 08/26/2014 Prolapsed lumbar disc [M51.26] 01/19/2017 Stable angina (HCC) [I20.89] 11/13/2017 Chewing tobacco nicotine dependence without com*08/27/2018 Lumbar spondylosis [M47.816] 08/27/2018 DDD (degenerative disc disease), lumbar [M51.36*08/27/2018 Lumbar radiculopathy [M54.16] 08/27/2018 Abnormal finding on echocardiogram [R93.1] 08/27/2018 10/12/2020 Heart murmur [R01.1] 08/27/2018 05/30/2019 Bradycardia [R00.1] 04/22/2019 08/17/2023 Nicotine use disorder, F17.2 [F17.200] 04/23/2019 Nonrheumatic aortic (valve) stenosis [I35.0] 05/30/2019 Coronary artery disease involving [place]*05/30/2019 Rotator cuff syndrome of left shoulder [M75.102]01/28/2020 Status post insertion of drug eluting coronary *08/28/2022 HOCM (hypertrophic obstructive cardiomyopathy) *05/15/2023 Discharge planning issues [Z75.8] 08/14/2023 Encounter for support and coordination of trans*08/14/2023 Post-op pain [G89.18] 08/16/2023 Hypovolemia [E86.1] 08/16/2023 Atelectasis [J98.11] 08/17/2023 Delirium [R41.0] 08/17/2023 Diabetes mellitus type 1, controlled, without c*08/18/2023 Hypervolemia [E87.70] 08/18/2023 S/P myomectomy [Z98.890] 09/18/2023 S/P AVR [Z95.2] 09/18/2023 Primary hypertension [I10] 09/18/2023 Encounter Status:Closed by VALENTE MEDELLIN on 02/01/24 Normal [facility] Basic metabolic 2000 panelon 01-23-2024 Anion gap [Moles/Vol] 14 mmol/L Normal 8-15 [facility] Comment on above: Order Comment: Speci men Type: BLOOD SPECIMEN Ordering Facility: [facility] Address: [address] [place] [address] Performed By: #### 2 4321-2 #### [facility] CLIA [id number] [address] [place] [address] [place] Calcium [Mass/Vol] 9.9 mg/dL Normal 8.5-10.2 [facility] Comment on above: Order Comment: Speci men Type: BLOOD SPECIMEN Ordering Facility: [facility] Address: [address] [place] [address] Performed By: #### 2 4321-2 #### [facility] CLIA [id number] [address] [place] [address] [place] Chloride [Moles/Vol] 100 mmol/L Normal 98-107 [facility] Comment on above: Order Comment: Speci men Type: BLOOD SPECIMEN Ordering Facility: [facility] Address: [address] [place] [address] Performed By: #### 2 4321-2 #### [facility] CLIA [id number] [address] [place] [address] [place] CO2 [Moles/Vol] 25 mmol/L Normal 22-30 [facility] Comment on above: Order Comment: Luda nielsen Type: BLOOD SPECIMEN Ordering Facility: [facility] Address: [address] [place] [address] Performed By: #### 2 4321-2 #### [facility] CLIA [id number] [address] [place] [address] [place] Creatinine [Mass/Vol] 0.74 mg/dL Normal 0.73-1.22 [facility] Comment on above: Order Comment: Luda nielsen Type: BLOOD SPECIMEN Ordering Facility: [facility] Address: [address] [place] [address] Performed By: #### 2 4321-2 #### [facility] CLIA [id number] [address] [place] [address] [place] Creatinine and Glomerular filtration rate.predicted panel (S/P/Bld) 98 mL/min/1.73m??? Normal >=60 [facility] Comment on above: Order Comment: Luda nielsen Type: BLOOD SPECIMEN Ordering Facility: [facility] Address: [address] [place] [address] Result Comment: Yohannes mated Glomerular Filtration Rate (eGFR) is calculated using the 2020 CKD-EPI creatinine equation. This equation utilizes serum creatinine, sex, and age as parameters. The creatinine assay has traceable calibration to isotope dilution-mass spectrometry. Refer to KDIGO guidelines for clinical interpretation. In patients with unstable renal function, e.g. those with acute kidney injury, the eGFR may not accurately reflect actual GFR. Performed By: #### 2 4321-2 #### [facility] CLIA [id number] [address] [place] [address] [place] Glucose [Mass/Vol] 159 mg/dL High 74-99 [facility] Comment on above: Order Comment: Luda nielsen Type: BLOOD SPECIMEN Ordering Facility: [facility] Address: [address] [place] [address] Result Comment: The [place] Diabetes Association (ADA) provides guidance for cutoff values for fasting glucose and random glucose. The ADA defines fasting as no caloric intake for at least 8 hours. Fasting plasma glucose results between 100 to 125 mg/dL indicate increased risk for diabetes (prediabetes). Fasting plasma glucose results greater than or equal to 126 mg/dL meet the criteria for diagnosis of diabetes. In the absence of unequivocal hyperglycemia, results should be confirmed by repeat testing. In a patient with classic symptoms of hyperglycemia or hyperglycemic crisis, random plasma glucose results greater than or equal to 200 mg/dL meet the criteria for diagnosis of diabetes. Reference: Standards of Medical Care in Diabetes 2016, [place] Diabetes Association. Diabetes Care. 2016.39(Suppl 1). Performed By: #### 2 4321-2 #### [facility] CLIA [id number] [address] [place] [address] [place] Potassium [Moles/Vol] 4.0 mmol/L Normal 3.7-5.1 [facility] Comment on above: Order Comment: Luda nielsen Type: BLOOD SPECIMEN Ordering Facility: [facility] Address: [address] [place] [address] Performed By: #### 2 4321-2 #### [facility] CLIA [id number] [address] [place] [address] [place] Sodium [Moles/Vol] 139 mmol/L Normal 136-144 [facility] Comment on above: Order Comment: Luda nielsen Type: BLOOD SPECIMEN Ordering Facility: [facility] Address: [address] [place] [address] Performed By: #### 2 4321-2 #### [facility] CLIA [id number] [address] [place] [address] [place] Urea nitrogen [Mass/Vol] 20 mg/dL Normal 9-24 [facility] Comment on above: Order Comment: Luda nielsen Type: BLOOD SPECIMEN Ordering Facility: [facility] Address: [address] [place] [address] Performed By: #### 2 4321-2 #### [facility] CLIA [id number] [address] [place] [address] [place] ECHOon 01-23-2024 CONCLUSIONS: - Exam indication: Shortness of Breath - The abnormal regional wall motion pattern in conjunction with normal regional wall thickness is consistent with a LBBB abnormal conduction delay. - The left ventricle is normal in size. There is moderate left ventricular hypertrophy. Left ventricular systolic function is mildly decreased. EF = 50 5% (visual est.) Grade III left ventricular diastolic dysfunction. - The right ventricle is normal in size. Right ventricular systolic function is normal. - Perimount Magna Ease prosthetic aortic valve (size #25). There is no aortic valve regurgitation. The peak gradient is 20 mmHg, the mean gradient is 12 mmHg and the dimensionless valve index is 0.64. Gradients measured at a heart rate of 80 beats per minute. - Exam was compared with the prior echocardiographic exam performed on 08/21/23. Aortic Valve gradients are slightly higher on [facility] exam ( but still within normal limits). Peak/mean gradients 20/12 mmHg on current study ( 9/6 mm on the prior study at similar heart rates). LV function has improved. * * * Final * * * [facility] Echocardiography Report: Transthoracic Echo [facility] Date of service: 01/23/2024 9:22:47 AM Ordering physician: ANTOINETTE ALICEA Indication: Shortness of Breath Technologist: Jonnathan Egan [facility] Interpreting physician: Vicente Moss MD PATIENT: Name: MR. REIK CLARKE : 1955 Age: 68 years Gender: M History of HTN, DM2, Obesity. Previous cardiovascular interventions: Aortic valve replacement (07/2023) Myectomy (07/2023) Primary rhythm: sinus. Height: 173.00 cm BSA: 2.06 m Weight: 88.00 kg BMI: 29.4 kg/m Heart rate 84 bpm Blood pressure 152/88 mmHg Color Doppler was utilized to interrogate the cardiac valves assessed and spectral Doppler was utilized to determine the flow velocities and pressure gradients reported in this exam. MEASUREMENTS: Value Indexed Normal Max aortic dimension 3.4 cm Ao < 3.8 Left atrium diameter 3.2 cm (2D) Left atrial volume 69 ml (biplane A-L) 34 ml/m Ivory <= 34 LV ID (diastole) 4.2 cm (2D) 2.03 cm/m LV ID (systole) 3.1 cm (2D) 1.51 cm/m IVS, leaflet tips 1.4 cm (2D) Posterior wall thickness 1.4 cm (2D) Left ventricular mass 221 g (2D) 107 g/m LV end diastolic volume 34<=EDVi<75 Ejection Fraction 50 % (visual est.) EF > 52 FINDINGS: LEFT VENTRICLE The left ventricle is normal in size. There is moderate left ventricular hypertrophy. Left ventricular systolic function is mildly decreased. Grade III left ventricular diastolic dysfunction. Mitral annular lateral E/e': 20.1. Mitral annular septal E/e': 16.8. Wall Motion: The anterior septum, mid inferoseptal segment, and basal inferoseptal segment are mildly hypokinetic. All remaining scored segments are normal. RIGHT VENTRICLE The right ventricle is normal in size. Right ventricular systolic function is normal. Tricuspid annular displacement is 1.2 cm. Estimated right ventricular systolic pressure is likely underestimated due to a weak or incomplete tricuspid regurgitation signal and is, at least, 23 mmHg consistent with normal pulmonary artery pressures. Estimated right atrial pressure is 3 mmHg based on IVC assessment. LEFT ATRIUM The left atrial cavity is normal in size. RIGHT ATRIUM The right atrial cavity is normal in size. Inferior Vena Cava: The inferior vena cava appears normal measuring 1.1 cm. The vessel decreases greater than 50 percent with inspiration. MITRAL VALVE There is moderate mitral annular calcification observed posterior. There is trace mitral valve regurgitation. The peak mitral E/A ratio is 2.01. The average mitral E/e' ratio is 18.5. TRICUSPID VALVE The tricuspid valve leaflets are structurally normal. There is trace tricuspid valve regurgitation. AORTIC VALVE Perimount Magna Ease prosthetic valve size #25. There is no aortic valve regurgitation. The peak gradient is 20 mmHg (peak velocity = 221.0 cm/s). The mean gradient is 12 mmHg. The aortic VTI is 37.3 cm. The mean velocity in the aortic valve is 150.2 cm/s. The dimensionless valve index is 0.64. PULMONIC VALVE The pulmonic valve cusps are structurally normal. There is trace pulmonic valve regurgitation. AORTA The visualized aorta is normal in size. Measurements - Mid ascending aorta 3.4 cm. [facility] Echocardiography Echocardiography Rep ort: Transthoracic Echo [facility] Date of service: 01/23/2024 9:22:47 AM Ordering physician: ANTOINETTE ALICEA Indication: Shortness of Breath Technologist: Jonnathan Egan [facility] Interpreting physician: Vicente Moss MD PATIENT: Name: MR. ERIK CLARKE : 1955 Age: 68 years Gender: M History of HTN, DM2, Obesity. Previous cardiovascular interventions: Aortic valve replacement (07/2023) Myectomy (07/2023) Primary rhythm: sinus. Height: 173.00 cm BSA: 2.06 m Weight: 88.00 kg BMI: 29.4 kg/m Heart rate 84 bpm Blood pressure 152/88 mmHg Color Doppler was utilized to interrogate the cardiac valves assessed and spectral Doppler was utilized to determine the flow velocities and pressure gradients reported in this exam. MEASUREMENTS: Value Indexed Normal Max aortic dimension 3.4 cm Ao < 3.8 Left atrium diameter 3.2 cm (2D) Left atrial volume 69 ml (biplane A-L) 34 ml/m Ivory <= 34 LV ID (diastole) 4.2 cm (2D) 2.03 cm/m LV ID (systole) 3.1 cm (2D) 1.51 cm/m IVS, leaflet tips 1.4 cm (2D) Posterior wall thickness 1.4 cm (2D) Left ventricular mass 221 g (2D) 107 g/m LV end diastolic volume 34<=EDVi<75 Ejection Fraction 50 % (visual est.) EF > 52 FINDINGS: LEFT VENTRICLE The left ventricle is normal in size. There is moderate left ventricular hypertrophy. Left ventricular systolic function is mildly decreased. Grade III left ventricular diastolic dysfunction. Mitral annular lateral E/e': 20.1. Mitral annular septal E/e': 16.8. Wall Motion: The anterior septum, mid inferoseptal segment, and basal inferoseptal segment are mildly hypokinetic. All remaining scored segments are normal. RIGHT VENTRICLE The right ventricle is normal in size. Right ventricular systolic function is normal. Tricuspid annular displacement is 1.2 cm. Estimated right ventricular systolic pressure is likely underestimated due to a weak or incomplete tricuspid regurgitation signal and is, at least, 23 mmHg consistent with normal pulmonary artery pressures. Estimated right atrial pressure is 3 mmHg based on IVC assessment. LEFT ATRIUM The left atrial cavity is normal in size. RIGHT ATRIUM The right atrial cavity is normal in size. Inferior Vena Cava: The inferior vena cava appears normal measuring 1.1 cm. The vessel decreases greater than 50 percent with inspiration. MITRAL VALVE There is moderate mitral annular calcification observed posterior. There is trace mitral valve regurgitation. The peak mitral E/A ratio is 2.01. The average mitral E/e' ratio is 18.5. TRICUSPID VALVE The tricuspid valve leaflets are structurally normal. There is trace tricuspid valve regurgitation. AORTIC VALVE Perimount Magna Ease prosthetic valve size #25. There is no aortic valve regurgitation. The peak gradient is 20 mmHg (peak velocity = 221.0 cm/s). The mean gradient is 12 mmHg. The aortic VTI is 37.3 cm. The mean velocity in the aortic valve is 150.2 cm/s. The dimensionless valve index is 0.64. PULMONIC VALVE The pulmonic valve cusps are structurally normal. There is trace pulmonic valve regurgitation. AORTA The visualized aorta is normal in size. Measurements - Mid ascending aorta 3.4 cm. CONCLUSIONS: - Exam indication: Shortness of Breath - The abnormal regional wall motion pattern in conjunction with normal regional wall thickness is consistent with a LBBB abnormal conduction delay. - The left ventricle is normal in size. There is moderate left ventricular hypertrophy. Left ventricular systolic function is mildly decreased. EF = 50 5% (visual est.) Grade III left ventricular diastolic dysfunction. - The right ventricle is normal in size. Right ventricular systolic function is normal. - Perimount Magna Ease prosthetic aortic valve (size #25). There is no aortic valve regurgitation. The peak gradient is 20 mmHg, the mean gradient is 12 mmHg and the dimensionless valve index is 0.64. Gradients measured at a heart rate of 80 beats per minute. - Exam was compared with the prior echocardiographic exam performed on 08/21/23. Aortic Valve gradients are [facility] ( but still within normal limits). Peak/mean gradients 20/12 mmHg on current study ( 9/6 mm on the prior study at similar heart rates). LV function has improved. * * * Final * * * [employer] [facility] : [id number] Normal [facility] HbA1c (Bld)on 01-23-2024 Average glucose Estimated from glycated hemoglobin (Bld) [Mass/Vol] 163 mg/dL Normal [facility] Comment on above: Order Comment: Luda nielsen Type: BLOOD SPECIMEN Ordering Facility: [facility] Address: [address] [place] [address] Result Comment: eAG: (Estimated average glucose) is a calculated value from HgbA1c and is surgical device sales representative of the average blood glucose level in the last 2-3 month period. Performed By: #### 5 5454-3 #### [facility] CLIA [id number] [address] [place] [address] [place] HbA1c (Bld) [Mass fraction] 7.3 % High 4.3-5.6 [facility] Comment on above: Order Comment: Luda nielsen Type: BLOOD SPECIMEN Ordering Facility: [facility] Address: [address] [place] [address] Result Comment: [place] Diabetes Association guidelines indicate that patients with HgbA1c in the range 5.7-6.4% are at increased risk for development of diabetes, and intervention by lifestyle modification may be beneficial. HgbA1c greater or equal to 6.5% is considered diagnostic of diabetes. Performed By: #### 5 5454-3 #### [facility] CLIA [id number] [address] [place] [address] [place] MRA BRAIN WO IVCONon 024 MRA BRAIN WO IVCON * * *Final Report* * * DATE OF EXAM: Dec 28 2023 2:12PM [facility] 0272 - MRA BRAIN WO IVCON / PROCEDURE REASON: G44.53-Thunderclap headache * * * * Physician Interpretation * * * * EXAMINATION: MRA BRAIN WO IVCON, MRA CAROTID WO/W IVCON CLINICAL HISTORY: Repetitive headache for about one month, pain localized to right forehead associated with plaque formation. Prior MRI negative. TECHNIQUE: Intracranial 3D [id number] MRA. 3D maximum intensity projection images were created, reviewed and archived . Extracranial 3D [id number]-[id number] and post contrast MRA. Supplemental fat-suppressed axial T1 images of the neck. MQ: [id number]; MQ: MRAB_4 Contrast: IV 16 ml of Dotarem COMPARISON: MRI brain 12/19/2023 RESULT: Intracranial MRA: Anterior Circulation: The intracranial ICAs are patent. Patent imaged portions of the ACAs with codominant A1 segments and patent anterior communicating artery. Patent appearance of the MCAs bilaterally. Incidental note is made that the superior and inferior divisions of the right MCA arise directly from the right ICA terminus, a normal variant. No apparent high grade stenosis, occlusion, or aneurysm in the visualized intracranial vessels. Posterior Circulation: Patent intracranial vertebral arteries, dominant on the left. Visualized proximal PICAs are patent. Patent appearance of the basilar artery and proximal superior cerebellar arteries. Unremarkable appearance of the posterior cerebral arteries. Patent bilateral posterior communicating arteries but each is diminutive in caliber.No apparent high grade stenosis, occlusion, or aneurysm in the visualized intracranial vessels. Localizer: No additional findings. Extracranial MRA: Aortic arch: There is a normal branching pattern from the aortic arch but evaluation is otherwise severely limited due to the timing of the injection. Cervical Carotid Arteries: Right Common: No significant stenosis. Right Internal Carotid: No significant plaque formation. The right cervical ICA is within normal limits of size and configuration for age. Right Internal Carotid Stenosis (% by NASCET Criteria): 0% Left Common: No significant stenosis. Left Internal Carotid: No significant plaque formation. The left cervical ICA is within normal size and configuration for age. Left Internal Carotid Stenosis (% by NASCET Criteria): 0% Cervical Vertebral Arteries: There appears to be focal moderate to severe stenosis of the right vertebral artery origin but this may in part be technical given the timing of the injection. The bilateral vertebral arteries are otherwise normal in caliber and morphology for age. Patency: Bilateral Dominance: Codominant IMPRESSION: No apparent intracranial arterial occlusion, aneurysm, or high-grade stenosis. Patent cervical vertebral arteries with suspicion of moderate to severe stenosis of the right vertebral artery origin but this may in part be technical. No hemodynamically significant extracranial carotid artery stenosis by NASCET criteria. Drying Can Worker: ANDREW Transcribe Date/Time: Dec 28 2023 2:33P Dictated by : KAIA CHRISTIANSON MD This examination was interpreted and the report reviewed and electronically signed by: JANE VALEROI MD on Dec 28 2023 4:01PM EST [id number] [place] [facility] MRA CAROTID WO/W IVCONon MRA CAROTID WO/W IVCON * * *Final Report* * * DATE OF EXAM: Dec 28 2023 2:12PM [facility] 0276 - MRA CAROTID WO/W IVCON / PROCEDURE REASON: G44.53-Thunderclap headache * * * * Physician Interpretation * * * * EXAMINATION: MRA BRAIN WO IVCON, MRA CAROTID WO/W IVCON CLINICAL HISTORY: Repetitive headache for about one month, pain localized to right forehead associated with plaque formation. Prior MRI negative. TECHNIQUE: Intracranial 3D rorm-ll-caeilx MRA. 3D maximum intensity projection images were created, reviewed and archived . Extracranial 3D axix-zl-tzqmet and post contrast MRA. Supplemental fat-suppressed axial T1 images of the neck. MQ: MRBWOW_2; MQ: MRAB_4 Contrast: IV 16 ml of Dotarem COMPARISON: MRI brain 12/19/2023 RESULT: Intracranial MRA: Anterior Circulation: The intracranial ICAs are patent. Patent imaged portions of the ACAs with codominant A1 segments and patent anterior communicating artery. Patent appearance of the MCAs bilaterally. Incidental note is made that the superior and inferior divisions of the right MCA arise directly from the right ICA terminus, a normal variant. No apparent high grade stenosis, occlusion, or aneurysm in the visualized intracranial vessels. Posterior Circulation: Patent intracranial vertebral arteries, dominant on the left. Visualized proximal PICAs are patent. Patent appearance of the basilar artery and proximal superior cerebellar arteries. Unremarkable appearance of the posterior cerebral arteries. Patent bilateral posterior communicating arteries but each is diminutive in caliber.No apparent high grade stenosis, occlusion, or aneurysm in the visualized intracranial vessels. Localizer: No additional findings. Extracranial MRA: Aortic arch: There is a normal branching pattern from the aortic arch but evaluation is otherwise severely limited due to the timing of the injection. Cervical Carotid Arteries: Right Common: No significant stenosis. Right Internal Carotid: No significant plaque formation. The right cervical ICA is within normal limits of size and configuration for age. Right Internal Carotid Stenosis (% by NASCET Criteria): 0% Left Common: No significant stenosis. Left Internal Carotid: No significant plaque formation. The left cervical ICA is within normal size and configuration for age. Left Internal Carotid Stenosis (% by NASCET Criteria): 0% Cervical Vertebral Arteries: There appears to be focal moderate to severe stenosis of the right vertebral artery origin but this may in part be technical given the timing of the injection. The bilateral vertebral arteries are otherwise normal in caliber and morphology for age. Patency: Bilateral Dominance: Codominant IMPRESSION: No apparent intracranial arterial occlusion, aneurysm, or high-grade stenosis. Patent cervical vertebral arteries with suspicion of moderate to severe stenosis of the right vertebral artery origin but this may in part be technical. No hemodynamically significant extracranial carotid artery stenosis by NASCET criteria. Drying Can Worker: ANDREW Transcribe Date/Time: Dec 28 2023 2:33P Dictated by : KAIA CHRISTIANSON MD This examination was interpreted and the report reviewed and electronically signed by: JANE VALERIO MD on Dec 28 2023 4:01PM EST [id number] [facility] MRA Head vessels WO contrast on 12-28-2023 * * *Final Report* * * DATE OF EXAM: Dec 28 2023 2:12PM [facility] 0272 - MRA BRAIN WO IVCON / PROCEDURE REASON: G44.53-Thunderclap headache * * * * Physician Interpretation * * * * EXAMINATION: MRA BRAIN WO IVCON, MRA CAROTID WO/W IVCON CLINICAL HISTORY: Repetitive headache for about one month, pain localized to right forehead associated with plaque formation. Prior MRI negative. TECHNIQUE: Intracranial 3D lvrw-qa-wprbcc MRA. 3D maximum intensity projection images were created, reviewed and archived . Extracranial 3D kahr-rh-zwtsoi and post contrast MRA. Supplemental fat-suppressed axial T1 images of the neck. MQ: MRBWOW_2; MQ: MRAB_4 Contrast: IV 16 ml of Dotarem COMPARISON: MRI brain 12/19/2023 RESULT: Intracranial MRA: Anterior Circulation: The intracranial ICAs are patent. Patent imaged portions of the ACAs with codominant A1 segments and patent anterior communicating artery. Patent appearance of the MCAs bilaterally. Incidental note is made that the superior and inferior divisions of the right MCA arise directly from the right ICA terminus, a normal variant. No apparent high grade stenosis, occlusion, or aneurysm in the visualized intracranial vessels. Posterior Circulation: Patent intracranial vertebral arteries, dominant on the left. Visualized proximal PICAs are patent. Patent appearance of the basilar artery and proximal superior cerebellar arteries. Unremarkable appearance of the posterior cerebral arteries. Patent bilateral posterior communicating arteries but each is diminutive in caliber.No apparent high grade stenosis, occlusion, or aneurysm in the visualized intracranial vessels. Localizer: No additional findings. Extracranial MRA: Aortic arch: There is a normal branching pattern from the aortic arch but evaluation is otherwise severely limited due to the timing of the injection. Cervical Carotid Arteries: Right Common: No significant stenosis. Right Internal Carotid: No significant plaque formation. The right cervical ICA is within normal limits of size and configuration for age. Right Internal Carotid Stenosis (% by NASCET Criteria): 0% Left Common: No significant stenosis. Left Internal Carotid: No significant plaque formation. The left cervical ICA is within normal size and configuration for age. Left Internal Carotid Stenosis (% by NASCET Criteria): 0% Cervical Vertebral Arteries: There appears to be focal moderate to severe stenosis of the right vertebral artery origin but this may in part be technical given the timing of the injection. The bilateral vertebral arteries are otherwise normal in caliber and morphology for age. Patency: Bilateral Dominance: Codominant [facility] Provider, [facility] - 12/28/2023 * * *Final Report* * * DATE OF EXAM: Dec 28 2023 2:12PM [facility] 0272 - MRA BRAIN WO IVCON / PROCEDURE REASON: G44.53-Thunderclap headache * * * * Physician Interpretation * * * * EXAMINATION: MRA BRAIN WO IVCON, MRA CAROTID WO/W IVCON CLINICAL HISTORY: Repetitive headache for about one month, pain localized to right forehead associated with plaque formation. Prior MRI negative. TECHNIQUE: Intracranial 3D spyp-yb-jxpgmx MRA. 3D maximum intensity projection images were created, reviewed and archived . Extracranial 3D pold-lf-shgcdh and post contrast MRA. Supplemental fat-suppressed axial T1 images of the neck. MQ: MRBWOW_2; MQ: MRAB_4 Contrast: IV 16 ml of Dotarem COMPARISON: MRI brain 12/19/2023 RESULT: Intracranial MRA: Anterior Circulation: The intracranial ICAs are patent. Patent imaged portions of the ACAs with codominant A1 segments and patent anterior communicating artery. Patent appearance of the MCAs bilaterally. Incidental note is made that the superior and inferior divisions of the right MCA arise directly from the right ICA terminus, a normal variant. No apparent high grade stenosis, occlusion, or aneurysm in the visualized intracranial vessels. Posterior Circulation: Patent intracranial vertebral arteries, dominant on the left. Visualized proximal PICAs are patent. Patent appearance of the basilar artery and proximal superior cerebellar arteries. Unremarkable appearance of the posterior cerebral arteries. Patent bilateral posterior communicating arteries but each is diminutive in caliber.No apparent high grade stenosis, occlusion, or aneurysm in the visualized intracranial vessels. Localizer: No additional findings. Extracranial MRA: Aortic arch: There is a normal branching pattern from the aortic arch but evaluation is otherwise severely limited due to the timing of the injection. Cervical Carotid Arteries: Right Common: No significant stenosis. Right Internal Carotid: No significant plaque formation. The right cervical ICA is within normal limits of size and configuration for age. Right Internal Carotid Stenosis (% by NASCET Criteria): 0% Left Common: No significant stenosis. Left Internal Carotid: No significant plaque formation. The left cervical ICA is within normal size and configuration for age. Left Internal Carotid Stenosis (% by NASCET Criteria): 0% Cervical Vertebral Arteries: There appears to be focal moderate to severe stenosis of the right vertebral artery origin but this may in part be technical given the timing of the injection. The bilateral vertebral arteries are otherwise normal in caliber and morphology for age. Patency: Bilateral Dominance: Codominant IMPRESSION IMPRESSION: No apparent intracranial arterial occlusion, aneurysm, or high-grade stenosis. Patent cervical vertebral arteries with suspicion of moderate to severe stenosis of the right vertebral artery origin but this may in part be technical. No hemodynamically significant extracranial carotid artery stenosis by NASCET criteria. Drying Can Worker: ANDREW Transcribe Date/Time: Dec 28 2023 2:33P Dictated by : KAIA CHRISTIANSON MD This examination was interpreted and the report reviewed and electronically signed by: JANE VALERIO MD on Dec 28 2023 4:01PM EST [facility] MRA Neck vessels WO and W co ntrast Candy 12-28-2023 * * *Final Report* * * DATE OF EXAM: Dec 28 2023 2:12PM [facility] 0276 - MRA CAROTID WO/W IVCON / PROCEDURE REASON: G44.53-Thunderclap headache * * * * Physician Interpretation * * * * EXAMINATION: MRA BRAIN WO IVCON, MRA CAROTID WO/W IVCON CLINICAL HISTORY: Repetitive headache for about one month, pain localized to right forehead associated with plaque formation. Prior MRI negative. TECHNIQUE: Intracranial 3D mwuh-va-ndkofp MRA. 3D maximum intensity projection images were created, reviewed and archived . Extracranial 3D iuap-ko-ydjlgl and post contrast MRA. Supplemental fat-suppressed axial T1 images of the neck. MQ: MRBWOW_2; MQ: MRAB_4 Contrast: IV 16 ml of Dotarem COMPARISON: MRI brain 12/19/2023 RESULT: Intracranial MRA: Anterior Circulation: The intracranial ICAs are patent. Patent imaged portions of the ACAs with codominant A1 segments and patent anterior communicating artery. Patent appearance of the MCAs bilaterally. Incidental note is made that the superior and inferior divisions of the right MCA arise directly from the right ICA terminus, a normal variant. No apparent high grade stenosis, occlusion, or aneurysm in the visualized intracranial vessels. Posterior Circulation: Patent intracranial vertebral arteries, dominant on the left. Visualized proximal PICAs are patent. Patent appearance of the basilar artery and proximal superior cerebellar arteries. Unremarkable appearance of the posterior cerebral arteries. Patent bilateral posterior communicating arteries but each is diminutive in caliber.No apparent high grade stenosis, occlusion, or aneurysm in the visualized intracranial vessels. Localizer: No additional findings. Extracranial MRA: Aortic arch: There is a normal branching pattern from the aortic arch but evaluation is otherwise severely limited due to the timing of the injection. Cervical Carotid Arteries: Right Common: No significant stenosis. Right Internal Carotid: No significant plaque formation. The right cervical ICA is within normal limits of size and configuration for age. Right Internal Carotid Stenosis (% by NASCET Criteria): 0% Left Common: No significant stenosis. Left Internal Carotid: No significant plaque formation. The left cervical ICA is within normal size and configuration for age. Left Internal Carotid Stenosis (% by NASCET Criteria): 0% Cervical Vertebral Arteries: There appears to be focal moderate to severe stenosis of the right vertebral artery origin but this may in part be technical given the timing of the injection. The bilateral vertebral arteries are otherwise normal in caliber and morphology for age. Patency: Bilateral Dominance: Codominant [facility] Provider, [facility] - 12/28/2023 * * *Final Report* * * DATE OF EXAM: Dec 28 2023 2:12PM [facility] 0276 - MRA CAROTID WO/W IVCON / PROCEDURE REASON: G44.53-Thunderclap headache * * * * Physician Interpretation * * * * EXAMINATION: MRA BRAIN WO IVCON, MRA CAROTID WO/W IVCON CLINICAL HISTORY: Repetitive headache for about one month, pain localized to right forehead associated with plaque formation. Prior MRI negative. TECHNIQUE: Intracranial 3D ruhb-ct-gvhhrc MRA. 3D maximum intensity projection images were created, reviewed and archived . Extracranial 3D koar-ie-lbqzmc and post contrast MRA. Supplemental fat-suppressed axial T1 images of the neck. MQ: MRBWOW_2; MQ: MRAB_4 Contrast: IV 16 ml of Dotarem COMPARISON: MRI brain 12/19/2023 RESULT: Intracranial MRA: Anterior Circulation: The intracranial ICAs are patent. Patent imaged portions of the ACAs with codominant A1 segments and patent anterior communicating artery. Patent appearance of the MCAs bilaterally. Incidental note is made that the superior and inferior divisions of the right MCA arise directly from the right ICA terminus, a normal variant. No apparent high grade stenosis, occlusion, or aneurysm in the visualized intracranial vessels. Posterior Circulation: Patent intracranial vertebral arteries, dominant on the left. Visualized proximal PICAs are patent. Patent appearance of the basilar artery and proximal superior cerebellar arteries. Unremarkable appearance of the posterior cerebral arteries. Patent bilateral posterior communicating arteries but each is diminutive in caliber.No apparent high grade stenosis, occlusion, or aneurysm in the visualized intracranial vessels. Localizer: No additional findings. Extracranial MRA: Aortic arch: There is a normal branching pattern from the aortic arch but evaluation is otherwise severely limited due to the timing of the injection. Cervical Carotid Arteries: Right Common: No significant stenosis. Right Internal Carotid: No significant plaque formation. The right cervical ICA is within normal limits of size and configuration for age. Right Internal Carotid Stenosis (% by NASCET Criteria): 0% Left Common: No significant stenosis. Left Internal Carotid: No significant plaque formation. The left cervical ICA is within normal size and configuration for age. Left Internal Carotid Stenosis (% by NASCET Criteria): 0% Cervical Vertebral Arteries: There appears to be focal moderate to severe stenosis of the right vertebral artery origin but this may in part be technical given the timing of the injection. The bilateral vertebral arteries are otherwise normal in caliber and morphology for age. Patency: Bilateral Dominance: Codominant IMPRESSION IMPRESSION: No apparent intracranial arterial occlusion, aneurysm, or high-grade stenosis. Patent cervical vertebral arteries with suspicion of moderate to severe stenosis of the right vertebral artery origin but this may in part be technical. No hemodynamically significant extracranial carotid artery stenosis by NASCET criteria. Drying Can Worker: ANDREW Transcribe Date/Time: Dec 28 2023 2:33P Dictated by : KAIA CHRISTIANSON MD This examination was interpreted and the report reviewed and electronically signed by: JANE VALERIO MD on Dec 28 2023 4:01PM [facility] No Panel Informationon 12-27 IMPRESSION: No apparent intracranial arterial occlusion, aneurysm, or high-grade stenosis. Patent cervical vertebral arteries with suspicion of moderate to severe stenosis of the right vertebral artery origin but this may in part be technical. No hemodynamically significant extracranial carotid artery stenosis by NASCET criteria. Drying Can Worker: CLAY Transcribe Date/Time: Dec 28 2023 2:33P Dictated by : KAIA CHRISTIANSON MD This examination was interpreted and the report reviewed and electronically signed by: JANE VALERIO MD on Dec 28 2023 4:01PM [facility] RADIOLOGY Radiology Study observation (narrative) [facility] No Panel InformationOrdered By: [facility]cf Provider on 12-28-2023 [facility] MR Brain WO contraston 12-18 IMPRESSION: No acute intracranial abnormality. Probable sequelae of moderate chronic microvascular ischemia and scattered chronic microhemorrhages. Drying Can Worker: ANDREW Transcribe Date/Time: Dec 19 2023 9:26A Dictated by : CECILIA NUNEZ MD This examination was interpreted and the report reviewed and electronically signed by: JONAH MARC MD on Dec 19 2023 11:05AM [facility] RADIOLOGY * * *Final Report* * * DATE OF EXAM: Dec 19 2023 7:41AM [facility] 0294 - MRI BRAIN WO IVCON / PROCEDURE REASON: G44.53-Thunderclap headache * * * * Physician Interpretation * * * * EXAMINATION: MRI BRAIN WO IVCON CLINICAL HISTORY: Thunderclap headache TECHNIQUE: Routine noncontrast MRI protocol including diffusion images. MQ: MRBWO_2 COMPARISON: He had dated 11/10/2023 RESULT: Acute Change: There is no evidence of restricted diffusion to suggest an acute infarct. Hemorrhage: Scattered foci of susceptibility artifact, for example in the right frontal lobe, right occipital lobe, right midbrain, left martino radiata, and occipital horn of the left lateral ventricle. These likely represent chronic microhemorrhages. Mass Lesion/ Mass Effect: No evidence of an intracranial mass or extra-axial fluid collection. No significant mass effect. 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 Scattered patchy and confluent areas of increased T2 and FLAIR signal are present in the supratentorial white matter which is nonspecific but likely represents chronic microvascular ischemia. Parenchyma: There is mild generalized parenchymal volume loss. Ventricles: Ventriculomegaly corresponds to the degree of parenchymal volume loss. Skull Base: Hypothalamic and pituitary region are grossly normal. Craniocervical junction is normal. No significant marrow replacement process. Vasculature: Major intracranial arterial structures, and dural venous sinuses show typical flow void, suggesting patency by spin echo criteria. Other: Bilateral lens replacements. The visualized paranasal sinuses and mastoid air cells are clear. The extracranial soft tissues are unremarkable. [facility] Provider, [facility] - 12/19/2023 * * *Final Report* * * DATE OF EXAM: Dec 19 2023 7:41AM [facility] 0294 - MRI BRAIN WO IVCON / PROCEDURE REASON: G44.53-Thunderclap headache * * * * Physician Interpretation * * * * EXAMINATION: MRI BRAIN WO IVCON CLINICAL HISTORY: Thunderclap headache TECHNIQUE: Routine noncontrast MRI protocol including diffusion images. MQ: MRBWO_2 COMPARISON: He had dated 11/10/2023 RESULT: Acute Change: There is no evidence of restricted diffusion to suggest an acute infarct. Hemorrhage: Scattered foci of susceptibility artifact, for example in the right frontal lobe, right occipital lobe, right midbrain, left martino radiata, and occipital horn of the left lateral ventricle. These likely represent chronic microhemorrhages. Mass Lesion/ Mass Effect: No evidence of an intracranial mass or extra-axial fluid collection. No significant mass effect. 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 Scattered patchy and confluent areas of increased T2 and FLAIR signal are present in the supratentorial white matter which is nonspecific but likely represents chronic microvascular ischemia. Parenchyma: There is mild generalized parenchymal volume loss. Ventricles: Ventriculomegaly corresponds to the degree of parenchymal volume loss. Skull Base: Hypothalamic and pituitary region are grossly normal. Craniocervical junction is normal. No significant marrow replacement process. Vasculature: Major intracranial arterial structures, and dural venous sinuses show typical flow void, suggesting patency by spin echo criteria. Other: Bilateral lens replacements. The visualized paranasal sinuses and mastoid air cells are clear. The extracranial soft tissues are unremarkable. IMPRESSION IMPRESSION: No acute intracranial abnormality. Probable sequelae of moderate chronic microvascular ischemia and scattered chronic microhemorrhages. Drying Can Worker: PSCB Transcribe Date/Time: Dec 19 2023 9:26A Dictated by : CECILIA NUNEZ MD This examination was interpreted and the report reviewed and electronically signed by: JONAH MARC MD on Dec 19 2023 11:05AM EST [facility] Radiology Study observation (narrative) [facility] MR Brain WO contrastOrdered By: [facility]cf Provider on 12-19-2023 [facility] MRI BRAIN WO IVCONon 024 MRI BRAIN WO IVCON * * *Final Report* * * DATE OF EXAM: Dec 19 2023 7:41AM [facility] 0294 - MRI BRAIN WO IVCON / PROCEDURE REASON: G44.53-Thunderclap headache * * * * Physician Interpretation * * * * EXAMINATION: MRI BRAIN WO IVCON CLINICAL HISTORY: Thunderclap headache TECHNIQUE: Routine noncontrast MRI protocol including diffusion images. MQ: MRBWO_2 COMPARISON: He had dated 11/10/2023 RESULT: Acute Change: There is no evidence of restricted diffusion to suggest an acute infarct. Hemorrhage: Scattered foci of susceptibility artifact, for example in the right frontal lobe, right occipital lobe, right midbrain, left martino radiata, and occipital horn of the left lateral ventricle. These likely represent chronic microhemorrhages. Mass Lesion/ Mass Effect: No evidence of an intracranial mass or extra-axial fluid collection. No significant mass effect. 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 Scattered patchy and confluent areas of increased T2 and FLAIR signal are present in the supratentorial white matter which is nonspecific but likely represents chronic microvascular ischemia. Parenchyma: There is mild generalized parenchymal volume loss. Ventricles: Ventriculomegaly corresponds to the degree of parenchymal volume loss. Skull Base: Hypothalamic and pituitary region are grossly normal. Craniocervical junction is normal. No significant marrow replacement process. Vasculature: Major intracranial arterial structures, and dural venous sinuses show typical flow void, suggesting patency by spin echo criteria. Other: Bilateral lens replacements. The visualized paranasal sinuses and mastoid air cells are clear. The extracranial soft tissues are unremarkable. IMPRESSION: No acute intracranial abnormality. Probable sequelae of moderate chronic microvascular ischemia and scattered chronic microhemorrhages. Drying Can Worker: ANDREW Transcribe Date/Time: Dec 19 2023 9:26A Dictated by : CECILIA NUNEZ MD This examination was interpreted and the report reviewed and electronically signed by: JONAH MARC MD on Dec 19 2023 11:05AM EST [id number] [facility] 12 Lead EKGon 12-12-2023 12 Lead EKG [facility] Cardiovascular Services [address] [place] [address] 12 Lead EKG 12/12/23 0808 MR#: [id number] Acct: [id number] Name: ERIK CLARKE Rep #: [id number] : [id number] 68 From: David Mueller MD Attending Dr: ROBERT FERRER Status: DIS RCR Ordering Dr: Abdullahi Martinez o. Date: 12/12/23 Location: CR Sex: M C Admitted: Test Reason : ARRHYTHMIA Blood Pressure : / mmHG Vent. Rate : 063 BPM Atrial Rate : 063 BPM P-R Int : 206 ms QRS Dur : 168 ms QT Int : 452 ms P-R-T Axes : 068 -42 107 degrees QTc Int : 462 ms Sinus rhythm with marked sinus arrhythmia Left axis deviation Left bundle branch block Abnormal ECG When compared with ECG of 12-DEC-2023 08:04, MANUAL COMPARISON REQUIRED, DATA IS UNCONFIRMED Confirmed by ERVIN JARRELL, DAVID ([id number]), online editor REY LEDESMA ([id number]) on 01/29/2024 2:33:01 PM Referred By: ROBERT FERRER Confirmed By:DAVID MUELLER MD 01/29/24 1433 Date David Mueller MD CC: NANCI HERNANDEZ; ROBERT FERRER Signed Normal [facility] 12 Lead EKG [facility] Cardiovascular Services [address] [place] [address] 12 Lead EKG 12/12/23 0804 MR#: [id number] Acct: [id number] Name: ERIK CLARKE Rep #: [id number] : 1955 68 From: David Mueller MD Attending Dr: ROBERT FERRER Status: DIS RCR Ordering Dr: Trista Limon,Out o. Date: 12/12/23 Location: Sex: M C Admitted: Test Reason : ARRHYTHMIA Blood Pressure : / mmHG Vent. Rate : 069 BPM Atrial Rate : 069 BPM P-R Int : 212 ms QRS Dur : 170 ms QT Int : 462 ms P-R-T Axes : 074 -34 105 degrees QTc Int : 495 ms Sinus rhythm with marked sinus arrhythmia with 1st degree A-V block Left axis deviation Left bundle branch block Abnormal ECG No previous ECGs available Confirmed by ERVIN JARRELL, DAVID ([id number]), online editor REY LEDESMA ([id number]) on 01/29/2024 2:32:32 PM Referred By: ROBERT FERRER Confirmed By:DAVID MUELLER MD 01/29/24 1432 Date David Mueller MD CC: NANCI HERNANDEZ; ROBERT FERRER Signed Normal [facility] CBC W Auto Differential pane l (Bld)on 11-18-2023 Basophils (Bld) [#/Vol] 0.05 10*3/uL Normal <0.11 [facility] Comment on above: Order Comment: Speci men Type: BLOOD SPECIMENOrdering Facility: [facility] Address: [address] [place] [address] Performed By: #### 5 7021-8 ####CECIL LABORATORYCLIA [id number] [address] [place] Basophils/100 WBC (Bld) 0.7 % Normal [facility] Comment on above: Order Comment: Speci men Type: BLOOD SPECIMENOrdering Facility: [facility] Address: [address] [place] [address] Performed By: #### 5 7021-8 ####QUINN LABORATORYCLIA [id number] [place] [address] [place] Differential cell count method Nom (Bld) Auto Normal [facility] Comment on above: Order Comment: Speci men Type: BLOOD SPECIMENOrdering Facility: [facility] Address: [address] [place] [address] Performed By: #### 5 7021-8 ####QUINN LABORATORYCLIA [id number] [place] [address] [place] Eosinophils (Bld) [#/Vol] 0.62 10*3/uL High <0.46 [facility] Comment on above: Order Comment: Speci men Type: BLOOD SPECIMENOrdering Facility: [facility] Address: [address] [place] [address] Performed By: #### 5 7021-8 ####QUINN LABORATORYCLIA [id number] [place] [address] [place] Eosinophils/100 WBC (Bld) 8.2 % Normal [facility] Comment on above: Order Comment: Speci men Type: BLOOD SPECIMENOrdering Facility: [facility] Address: [address] [place] [address] Performed By: #### 5 7021-8 ####QUINN LABORATORYCLIA [id number] [place] [address] [place] Erythrocyte distribution width (RBC) [Ratio] 13.3 % Normal 11.5-15.0 [facility] Comment on above: Order Comment: Speci men Type: BLOOD SPECIMENOrdering Facility: [facility] Address: [address] [place] [address] Performed By: #### 5 7021-8 ####QUINN LABORATORYCLIA [id number] [place] [address] [place] Hematocrit (Bld) [Volume fraction] 47.6 % Normal 39.0-51.0 [facility] Comment on above: Order Comment: Speci men Type: BLOOD SPECIMENOrdering Facility: [facility] Address: [address] [place] [address] Performed By: #### 5 7021-8 ####QUINN LABORATORYCLIA [id number] [place] [address] [place] Hemoglobin (Bld) [Mass/Vol] 15.8 g/dL Normal 13.0-17.0 [facility] Comment on above: Order Comment: Speci men Type: BLOOD SPECIMENOrdering Facility: [facility] Address: [address] [place] [address] Performed By: #### 5 7021-8 ####QUINN LABORATORYCLIA [id number] [place] [address] [place] Immature granulocytes (Bld) [#/Vol] 10*3/uL Normal <0.10 [facility] Comment on above: Order Comment: Speci men Type: BLOOD SPECIMENOrdering Facility: [facility] Address: [address] [place] [address] Performed By: #### 5 7021-8 ####QUINN LABORATORYCLIA [id number] [place] [address] [place] Immature granulocytes/100 WBC (Bld) 0.3 % Normal [facility] Comment on above: Order Comment: Speci men Type: BLOOD SPECIMENOrdering Facility: [facility] Address: [address] [place] [address] Performed By: #### 5 7021-8 ####QUINN LABORATORYCLIA [id number] [place] [address] [place] Lymphocytes (Bld) [#/Vol] 1.76 10*3/uL Normal 1.00-4.00 [facility] Comment on above: Order Comment: Speci men Type: BLOOD SPECIMENOrdering Facility: [facility] Address: [address] [place] [address] Performed By: #### 5 7021-8 ####QUINN LABORATORYCLIA [id number] [place] [address] [place] Lymphocytes/100 WBC (Bld) 23.2 % Normal [facility] Comment on above: Order Comment: Speci men Type: BLOOD SPECIMENOrdering Facility: [facility] Address: [address] [place] [address] Performed By: #### 5 7021-8 ####QUINN LABORATORYCLIA [id number] [address] MCH (RBC) [Entitic mass] 28.0 pg Normal 26.0-34.0 [facility] Comment on above: Order Comment: Speci men Type: BLOOD SPECIMENOrdering Facility: [facility] Address: [address] [place] [address] Performed By: #### 5 7021-8 ####QUINN LABORATORYCLIA [id number] [address] MCHC (RBC) [Mass/Vol] 33.2 g/dL Normal 30.5-36.0 [facility] Comment on above: Order Comment: Speci men Type: BLOOD SPECIMENOrdering Facility: [facility] Address: [address] [place] [address] Performed By: #### 5 7021-8 ####QUINN LABORATORYCLIA [id number] [address] MCV (RBC) [Entitic vol] 84.4 fL Normal 80.0-100.0 [facility] Comment on above: Order Comment: Speci men Type: BLOOD SPECIMENOrdering Facility: [facility] Address: [address] [place] [address] Performed By: #### 5 7021-8 ####QUINN LABORATORYCLIA [id number] [address] Monocytes (Bld) [#/Vol] 0.48 10*3/uL Normal <0.87 [facility] Comment on above: Order Comment: Speci men Type: BLOOD SPECIMENOrdering Facility: [facility] Address: [address] [place] [address] Performed By: #### 5 7021-8 ####QUINN LABORATORYCLIA [id number] [address] Monocytes/100 WBC (Bld) 6.3 % Normal [facility] Comment on above: Order Comment: Speci men Type: BLOOD SPECIMENOrdering Facility: [facility] Address: [address] [place] [address] Performed By: #### 5 7021-8 ####QUINN LABORATORYCLIA [id number] [place] [address] [place] Neutrophils (Bld) [#/Vol] 4.64 10*3/uL Normal 1.45-7.50 [facility] Comment on above: Order Comment: Speci men Type: BLOOD SPECIMENOrdering Facility: [facility] Address: [address] [place] [address] Performed By: #### 5 7021-8 ####QUINN LABORATORYCLIA [id number] [address] [place] Neutrophils/100 WBC (Bld) 61.3 % Normal [facility] Comment on above: Order Comment: Speci men Type: BLOOD SPECIMENOrdering Facility: [facility] Address: [address] [place] [address] Performed By: #### 5 7021-8 ####QUINN LABORATORYCLIA [id number] [place] [address] [place] Nucleated RBC (Bld) [#/Vol] 10*3/uL Normal <0.01 [facility] Comment on above: Order Comment: Speci men Type: BLOOD SPECIMENOrdering Facility: [facility] Address: [address] [place] [address] Performed By: #### 5 7021-8 ####QUINN LABORATORYCLIA [id number] [address] [place] Nucleated RBC/100 WBC (Bld) [Ratio] 0.0 /100 WBC Normal [facility] Comment on above: Order Comment: Speci men Type: BLOOD SPECIMENOrdering Facility: [facility] Address: [address] [place] [address] Performed By: #### 5 7021-8 ####QUINN LABORATORYCLIA [id number] [place] [address] [place] Platelet mean volume (Bld) [Entitic vol] 9.0 fL Normal 9.0-12.7 [facility] Comment on above: Order Comment: Speci men Type: BLOOD SPECIMENOrdering Facility: [facility] Address: [address] [place] [address] Performed By: #### 5 7021-8 ####QUINN LABORATORYCLIA [id number] [place] [address] [facility] [place] Platelets (Bld) [#/Vol] 270 10*3/uL Normal 150-400 [facility] Comment on above: Order Comment: Speci men Type: BLOOD SPECIMENOrdering Facility: [facility] Address: [address] [place] [address] Performed By: #### 5 7021-8 ####QUINN LABORATORYCLIA [id number] [place] [address] [facility] [place] RBC (Bld) [#/Vol] 5.64 10*6/uL Normal 4.20-6.00 [facility] Comment on above: Order Comment: Speci men Type: BLOOD SPECIMENOrdering Facility: [facility] Address: [address] [place] [address] Performed By: #### 5 7021-8 ####QUINN LABORATORYCLIA [id number] [place] [address] [place] WBC (Bld) [#/Vol] 7.57 10*3/uL Normal 3.70-11.00 [facility] Comment on above: Order Comment: Speci men Type: BLOOD SPECIMENOrdering Facility: [facility] Address: [address] [place] [address] Performed By: #### 5 7021-8 ####QUINN LABORATORYCLIA [id number] [address] [place] CT BRAIN WO IVCONon 11-18-[address] BRAIN WO IVCON * * *Final Report* * * DATE OF EXAM: Nov 18 2023 2:39PM [facility] [id number] - CT BRAIN WO IVCON / PROCEDURE REASON: Headache, sudden, severe * * * * Physician Interpretation * * * * EXAMINATION: CT BRAIN WO IVCON PATIENT/TECHNOLOGIST PROVIDED HISTORY: Reason for Visit. Headache. Hypertension. CLINICAL HISTORY: 68 years old Male with Headache, sudden, severe TECHNIQUE: Serial axial images without IV contrast were obtained from the vertex to the foramen magnum. MQ: CTBWO_3 CT Radiation dose: Integrated Dose-Length Product (DLP) for this visit = 748 mGy*cm CT Dose Reduction Employed: No dose reduction techniques were required COMPARISON: CT brain 11/15/2023 RESULT: Post-operative change: None. Acute change: No evidence of an acute intracranial process. Hemorrhage: No evidence of acute intracranial hemorrhage. ECASS hemorrhagic transformation score: Not Applicable Mass Lesion / Mass Effect: There is no evidence of an intracranial mass or extraaxial fluid collection. No significant mass effect. Chronic change: Remote appearing small RIGHT frontal subcortical white matter lacunar infarct and tiny lacunar infarct in the LEFT caudate head. Patchy foci of low attenuation coefficient are present within the supratentorial white matter which is a nonspecific finding but likely represents moderate microvascular ischemia. Parenchyma: There is mild generalized volume loss. The brain parenchyma is otherwise within normal limits for age. Ventricles: The ventricles are within normal limits of size and configuration for age. Paranasal sinuses and skull base: Atherosclerotic calcification bilateral juxtasellar carotids. The visualized paranasal sinuses are grossly clear. The skull base and imaged soft tissues are unremarkable. Localizer images: No additional findings. IMPRESSION: No CT evidence of acute intracranial abnormality. Drying Can Worker: ANDREW Transcribe Date/Time: Nov 18 2023 2:43P Dictated by : KAREN HAILE DO This examination was interpreted and the report reviewed and electronically signed by: KAREN HAILE DO on Nov 18 2023 2:49PM EST [id number] Normal [facility] Comprehensive metabolic 2000 panelon 11-18-2023 Albumin [Mass/Vol] 4.5 g/dL Normal 3.9-4.9 [facility] Comment on above: Order Comment: Speci men Type: BLOOD SPECIMENOrdering Facility: [facility] Address: [address] [place] [address] Performed By: #### 3 3762-6, 28920-4, 61377-9, [id number] ####QUINN LABORATORYCLIA [id number] [place] [address] [place] ALP [Catalytic activity/Vol] 52 U/L Normal 38-113 [facility] Comment on above: Order Comment: Speci men Type: BLOOD SPECIMENOrdering Facility: [facility] Address: [facility] [place] [address] Performed By: #### 3 3762-6, 71572-3, 65779-9, [id number] ####QUINN LABORATORYCLIA [id number] [place] [address] [place] ALT [Catalytic activity/Vol] 18 U/L Normal 10-54 [facility] Comment on above: Order Comment: Speci men Type: BLOOD SPECIMENOrdering Facility: [facility] Address: [address] [place] [address] Performed By: #### 3 3762-6, 29932-1, 98637-2, [id number] ####QUINN LABORATORYCLIA [id number] [place] [address] [place] Anion gap [Moles/Vol] 13 mmol/L Normal 8-15 [facility] Comment on above: Order Comment: Speci men Type: BLOOD SPECIMENOrdering Facility: [facility] Address: [facility] [place] [address] Performed By: #### 3 3762-6, 84435-0, , [id number] ####QUINN LABORATORYCLIA [id number] [place] [address] [place] AST [Catalytic activity/Vol] 19 U/L Normal 14-40 [facility] Comment on above: Order Comment: Speci men Type: BLOOD SPECIMENOrdering Facility: [facility] Address: [address] [place] [address] Performed By: #### 3 3762-6, 17197-4, 04708-4, [id number] ####QUINN LABORATORYCLIA [id number] [place] [address] [place] Bilirubin [Mass/Vol] 1.6 mg/dL High 0.2-1.3 [facility] Comment on above: Order Comment: Speci men Type: BLOOD SPECIMENOrdering Facility: [facility] Address: [address] [place] [address] Performed By: #### 3 3762-6, 32306-0, 62689-7, [id number] ####QUINN LABORATORYCLIA [id number] [place] [address] [place] Calcium [Mass/Vol] 9.4 mg/dL Normal 8.5-10.2 [facility] Comment on above: Order Comment: Speci men Type: BLOOD SPECIMENOrdering Facility: [facility] Address: [address] [place] [address] Performed By: #### 3 3762-6, 32455-4, 14295-5, [id number] ####QUINN LABORATORYCLIA [id number] [place] [address] [place] Chloride [Moles/Vol] 103 mmol/L Normal 98-107 [facility] Comment on above: Order Comment: Speci men Type: BLOOD SPECIMENOrdering Facility: [facility] Address: [address] [place] [address] Performed By: #### 3 3762-6, 34565-0, 69106-3, [id number] ####QUINN LABORATORYCLIA [id number] [place] [address] [place] CO2 [Moles/Vol] 23 mmol/L Normal 22-30 [facility] Comment on above: Order Comment: Speci men Type: BLOOD SPECIMENOrdering Facility: [facility] Address: [address] [place] [address] Performed By: #### 3 3762-6, 98234-1, 78699-1, [id number] ####QUINN LABORATORYCLIA [id number] [place] [address] [place] Creatinine [Mass/Vol] 0.53 mg/dL Low 0.73-1.22 [facility] Comment on above: Order Comment: Speci men Type: BLOOD SPECIMENOrdering Facility: [facility] Address: [address] [place] [address] Performed By: #### 3 3762-6, 62893-9, 67346-2, [id number] ####QUINN LABORATORYCLIA [id number] [place] [address] [place] Creatinine and Glomerular filtration rate.predicted panel (S/P/Bld) 108 mL/min/1.73m??? Normal >=60 [facility] Comment on above: Order Comment: Luda nielsen Type: BLOOD SPECIMENOrdering Facility: [facility] Address: [address] [place] [address] Result Comment: Yohannes mated Glomerular Filtration Rate (eGFR) is calculated using the 2020 CKD-EPI creatinine equation. This equation utilizes serum creatinine, sex, and age as parameters. The creatinine assay has traceable calibration to isotope dilution-mass spectrometry. Refer to KDIGO guidelines for clinical interpretation. In patients with unstable renal function, e.g. those with acute kidney injury, the eGFR may not accurately reflect actual GFR. Performed By: #### 3 3762-6, 29136-4, 32434-8, [id number] ####CECIL LABORATORYCLIA [id number] [place] [address] [place] Glucose [Mass/Vol] 131 mg/dL High 74-99 [facility] Comment on above: Order Comment: Luda nielsen Type: BLOOD SPECIMENOrdering Facility: [facility] Address: [address] [place] [address] Result Comment: The [place] [employer] (ADA) provides guidance for cutoff values for fasting glucose and random glucose. The ADA defines fasting as no caloric intake for at least 8 hours. Fasting plasma glucose results between 100 to 125 mg/dL indicate increased risk for diabetes (prediabetes). Fasting plasma glucose results greater than or equal to 126 mg/dL meet the criteria for diagnosis of diabetes. In the absence of unequivocal hyperglycemia, results should be confirmed by repeat testing. In a patient with classic symptoms of hyperglycemia or hyperglycemic crisis, random plasma glucose results greater than or equal to 200 mg/dL meet the criteria for diagnosis of diabetes. Reference: Standards of Medical Care in Diabetes 2016, [place] [employer]. Diabetes Care. 2016.39(Suppl 1). Performed By: #### 3 3762-6, 58793-0, 64946-4, [id number] ####CECIL LABORATORYCLIA [id number] [place] [address] [place] Potassium [Moles/Vol] 3.5 mmol/L Low 3.7-5.1 [facility] Comment on above: Order Comment: Speci men Type: BLOOD SPECIMENOrdering Facility: [facility] Address: [address] [facility] [place] [address] Performed By: #### 3 3762-6, 24062-2, 78624-5, [id number] ####QUINN LABORATORYCLIA [id number] [place] [address] [place] Protein [Mass/Vol] 7.6 g/dL Normal 6.3-8.0 [facility] Comment on above: Order Comment: Speci men Type: BLOOD SPECIMENOrdering Facility: [facility] Address: [address] [place] [address] Performed By: #### 3 3762-6, 76382-9, , [id number] ####QUINN LABORATORYCLIA [id number] [address] Sodium [Moles/Vol] 139 mmol/L Normal 136-144 [facility] Comment on above: Order Comment: Speci men Type: BLOOD SPECIMENOrdering Facility: [facility] Address: [address] [place] [address] [place] [address] Performed By: #### 3 3762-6, 90484-8, , [id number] ####QUINN LABORATORYCLIA [id number] [address] [place] Urea nitrogen [Mass/Vol] 9 mg/dL Normal 9-24 [facility] Comment on above: Order Comment: Speci men Type: BLOOD SPECIMENOrdering Facility: [facility] Address: [address] [place] [address] Performed By: #### 3 3762-6, 24905-1, , [id number] ####QUINN LABORATORYCLIA [id number] [address] [place] ECG COMPLETEon 11-18-2023 ECG COMPLETE Ventricular Rate : 8 9 BPM Atrial Rate : 89 BPM P-R Interval : 202 ms QRS Duration : 164 ms Q-T Interval : 420 ms QTC Calculation(Bazett) : 511 ms Calculated P Garnett : 80 degrees Calculated R Garnett : -72 degrees Calculated T Garnett : 102 degrees NORMAL SINUS RHYTHM LEFT AXIS DEVIATION LEFT BUNDLE BRANCH BLOCK ABNORMAL ECG 1336 NO STEMI Confirmed by TRANG FRANCO MD ([id number]), online editor JAMI WALKER ([id number]) on 11/19/2023 6:55:36 AM NAME : ERIK CLARKE PID : [id number] : 1955 Gender : Male Race : ORD : [id number] Procedure Date : Nov 18 2023 13:33:35 Edit Date : Nov 19 2023 06:55:41 Diagnosis: NORMAL SINUS RHYTHM LEFT AXIS DEVIATION LEFT BUNDLE BRANCH BLOCK ABNORMAL ECG 1336 NO STEMI Confirmed by TRANG FRANCO MD ([id number]), online editor JAMI WALKER ([id number]) on 11/19/2023 6:55:36 AM Test Reason : Chest Pain Location : 1 : ER ED Overread By : TRANG FRANCO MD Edited By : JAMI WALKER Referred By : , Acquired by : , [facility] ED NOTEon 11-18-2023 ED NOTE HNO ID: [id number] Author: HARIS DURAN RN Service: ? Author Type: Registered Nurse Type: ED Notes Filed: 11/18/2023 17:49 Note Text: Discharge instructions and return precautions d/w pt. Stated understanding with no further questions for this nurse. Encouraged f/u with PCP and referring doctors given. Stated understanding. Prescription(S) were given X0. [facility] ED PROV NOTEon 11-18-2023 ED PROV NOTE HNO ID: [id number] Author: TRANG FRANCO MD Service: ? Author Type: Physician Type: ED Provider Notes Filed: 11/18/2023 18:56 Note Text: ED Provider Note Patient Name: Erik Clarke : 1955 SERVICE DATE: 11/18/23 History Patient presents with: Headache Hypertension Patient presents for severe right head sided headache. Patient had headache that started in the center of his head and now has moved right. Patient had a headache similar to this a few days ago and was seen at the emergency department with unremarkable workup other than having hypertension. Patient's symptoms returned today. He is having mild photophobia. No nausea or vomiting. No chest pain or shortness of breath. No numbness or weakness in the arms or legs. No vision changes. He noted his pressure is running high. PAST MEDICAL HISTORY Diagnosis Date BPH (benign prostatic hypertrophy) with urinary retention 01/22/2012 Bradycardia Coronary artery disease involving [place] coronary artery of [place] heart without angina pectoris 05/30/2019 History: s/p CATRACHITA. On Brilinta ED (erectile dysfunction) HOCM (hypertrophic obstructive cardiomyopathy) ([facility]) 05/15/2023 History: HOCM Hyperlipidemia LDL goal < 100 01/22/2012 Hypertension 01/22/2012 Nonrheumatic aortic (valve) stenosis 05/30/2019 History: Severe Obesity S/P AVR 09/18/2023 S/P myomectomy 09/18/2023 Status post insertion of drug eluting coronary artery stent 08/28/2022 Type 2 diabetes mellitus not at goal 01/22/2012 PAST SURGICAL HISTORY Procedure Laterality Date CARDIAC CATHETERIZATION HX 1999, 2004 no blockages, mildly leaky valve LEFT HEART CATH,PERCUTANEOUS 06/2022 stent placed PAST SURGICAL HISTORY OF 12/2015 L3-S1 laminectomy, decompression PAST SURGICAL HISTORY OF 01/16/2017 Lumbar reexploration L3-S1 with laminectomy and decompression FAMILY HISTORY Problem Relation Age of Onset Diabetes Mother Heart Father Diabetes Father Social History Tobacco Use Smoking status: Former Types: Cigarettes Quit date: 01/21/2010 Years since quittin.8 Smokeless tobacco: Current Types: Chew Tobacco comments: Patient states he has been chewing since he was younger - about a half can. Patient states it is the pouch type. Vaping Use Vaping Use: Never used Substance and Sexual Activity Alcohol use: No Drug use: No Sexual activity: Not on file ALLERGIES No Known Allergies Review of Systems Constitutional: Pertinent positives and negatives as per HPI. Physical Exam Vitals [11/18/23 1319] BP Pulse Temp Temp src Resp SpO2 Weight Height 160/101 (!) 93 36.4 ?C (97.5 ?F) Oral 16 (!) 93 % 90.7 kg (200 lb) -- Physical Exam Vitals and nursing note reviewed. Exam conducted with a ob/gyn physician present. Constitutional: General: He is in acute distress. Appearance: Normal appearance. He is not toxic-appearing. HENT: Head: Normocephalic and atraumatic. Jaw: There is normal jaw occlusion. Eyes: Extraocular Movements: Extraocular movements intact. Conjunctiva/sclera: Conjunctivae normal. Pupils: Pupils are equal, round, and reactive to light. Cardiovascular: Rate and Rhythm: Normal rate and regular rhythm. Pulses: Normal pulses. Pulmonary: Effort: Pulmonary effort is normal. Breath sounds: No wheezing, rhonchi or rales. Abdominal: General: Abdomen is flat. Tenderness: There is no abdominal tenderness. Musculoskeletal: General: Normal range of motion. Cervical back: Normal range of motion and neck supple. No tenderness. Right lower leg: No edema. Left lower leg: No edema. Skin: General: Skin is warm and dry. Neurological: General: No focal deficit present. Mental Status: He is alert. Sensory: No sensory deficit. Motor: No weakness. Diagnostic Testing ED Labs Ordered and Reviewed - No data to display Procedures ED Course / Clinical Impression ED Course as of 11/18/23 1854 Trang Franco's Documentation Sun Nov 18, 2023 1336 ECG COMPLETE Heart rate 89, sinus rhythm with first-degree AV block, left bundle branch block. No STEMI per Blandon-modified Sgarbossa criteria. QTc prolongation of 511 ms. No STEMI. Independently interpreted by me. 1441 CT BRAIN WO IVCON Result(s) independently interpreted by me: No acute intracranial hemorrhage or mass noted 1723 Patient's headache has resolved. Blood pressure has improved. He is comfortable with discharge home. Clinical Impressions as of 11/18/23 1854 Acute nonintractable headache, unspecified headache type Uncontrolled hypertension Essential hypertension Coronary artery disease involving [place] coronary artery of [place] heart without angina pectoris MDM / Disposition / Plan Medical Decision Making: Patient presents with severe headache, concerned it is related to his blood pressure. Patient is hypertensive at this time, and will be given dose of labetalol for hypertension. Patient had a wor (more content not included)... Normal [facility] FLUABV+SARS-CoV-2+RSV Pnl Re sp ELIEZER+probeon 11-18-2023 FLUABV+SARS-CoV-2+RSV Pnl Resp ELIEZER+probe COVID 19 RESULT: Not detected The method used is RT-PCR or an equivalent NAAT method. Reference Range(the expected result in uninfected individuals): Not detected INFLUENZA A PCR: Not detected INFLUENZA B PCR: Not detected RSV PCR: Not detected Normal [facility] Comment on above: Performed By: #### 9 [id number] ####QUINN LABORATORYCLIA [id number] [address] [place] TROPONIN T (INITIAL)on 11-18-2023 Troponin T.cardiac High sensitivity method [Mass/Vol] 12 ng/L High <12 [facility] Comment on above: Order Comment: Speci men Type: BLOOD SPECIMENOrdering Facility: [facility] Address: [address] [place] [address] Performed By: #### 3 3762-6, 97246-7, 02996-4, [id number] ####UQINN LABORATORYCLIA [id number] [place] [address] [place] TROPONIN T (SECOND)on 11-18-2023 Troponin T.cardiac High sensitivity method [Mass/Vol] 16 ng/L High <12 [facility] Comment on above: Order Comment: Speci men Type: BLOOD SPECIMENOrdering Facility: [facility] Address: [address] [place] [address] Performed By: #### L [id number] ####QUINN LABORATORYCLIA [id number] [address] [place] TROPONIN T (THIRD) 3 HRS AFTER INITIALon 11-18-2023 Troponin T.cardiac High sensitivity method [Mass/Vol] 17 ng/L High <12 [facility] Comment on above: Order Comment: Speci men Type: BLOOD SPECIMENOrdering Facility: [facility] Address: [address] [place] [address] Performed By: #### L [id number] ####QUINN LABORATORYCLIA [id number] [address] [place] Magnesium SerPl-mCncon 11-17 Magnesium [Mass/Vol] 1.9 mg/dL Normal 1.7-2.3 [facility] Comment on above: Order Comment: Speci men Type: BLOOD SPECIMENOrdering Facility: [facility] Address: [address] [place] [address] Performed By: #### 3 3762-6, 89547-4, 06315-5, [id number] ####QUINN LABORATORYCLIA [id number] [place] [id number] [facility] NT-proBNP [facility] 11-17 Natriuretic peptide.B prohormone N-Terminal [Mass/Vol] 570 pg/mL High <125 [facility] Comment on above: Order Comment: Speci men Type: BLOOD SPECIMENOrdering Facility: [facility] Address: [facility] [place] [address] Performed By: #### 3 3762-6, 42056-6, 92574-3, [id number] ####CECIL LABORATORYCLIA [id number] [place] [address] [facility] CR - History AND Physicalon 10-12-2023 CR - History & Physical [facility] Card[facility] [address] [place] [address] CR - History Physical MR#: [id number] Acct: [id number] Name: ERIK CLARKE Rep #: [id number] : 1955 67 From: David Mueller MD PCP: NANCI HERNANDEZ DOS: 10/12/23 CR - History Physical General Arrival date:: 10/12/23 Arrival time:: 08:03 Date of Referral:: 09/18/23 Date of CR Evaluation:: 10/12/23 Referring Physician: Dr. Robert Ferrer; Dr. Gee Barron Primary Diagnosis: S/P AVR History of Present Cardiac Event Onset Date Heart valve replacement or repair:: Yes PTCA or coronary stenting:: Yes (2022 x 1 stent) Heart Failure EF <35%:: No (LVEF 58%) Type of Symptoms:: Shortness of breath; getting worse Interventions with present event:: Transplant of aortic valve Were there any complications?: no Medications Ambulatory Orders ???Medication ???Instructions ???Recorded amlodipine 10 mg tablet (Norvasc) 10 mg PO DAILY 10/02/22 aspirin 81 mg tablet 81 mg PO DAILY 10/02/22 chlorthalidone 25 mg tablet 25 mg PO DAILY 10/02/22 empagliflozin 10 mg tablet 10 mg PO DAILY 10/02/22 (Jardiance) fenofibrate nanocrystallized 145 145 mg PO DAILY 10/02/22 mg tablet (Tricor) insulin glargine 100 unit/mL 44 unit subcut DAILY 10/02/22 subcutaneous solution lisinopril 40 mg tablet 40 mg PO DAILY 10/02/22 metformin 1,000 mg tablet 1,000 mg PO BID 10/02/22 metoprolol tartrate 25 mg tablet 25 mg PO BID 10/02/22 rosuvastatin 10 mg tablet (Crestor) 10 mg PO DAILY 10/02/22 semaglutide 1 mg/dose (2 mg/1.5 1 mg subcut QWEEK 10/02/22 mL) subcutaneous pen injector (Ozempic) sildenafil 100 mg tablet (Viagra) 100 mg PO DAILY PRN Erectile 10/02/22 Dysfunction ticagrelor 90 mg tablet (Brilinta) 90 mg PO Q12H 10/02/22 Allergies Allergies No Known Drug Allergies Allergy (Verified 10/02/22 08:30) Other Sleep Disorder Evaluation Hx of Sleep Apnea: No Do you snore loudly (louder than talking or can be heard through closed doors)?: Yes Do you often feel tired/ fatigued/ sleepy during daytime?: No Has anyone observed you stop breathing during sleep?: No History of Hypertension (for STOP score): Yes STOP Results: Positive Advanced Directives Advanced Directives Power of Protection Specialist: No Living Will: No Advance Directives Information Provided: Yes Advance Directives on File: No DNR Order?:: No Additional Comments:: Patient unclear of advanced Directives, knows if he has them they are not [facility] at [facility]. MOLST See MOLST form: No Past Medical History Covid-19 Screening Physicial Symptoms Fever: No Unexplained muscle aches: No Current respiratory symptoms: No Upper respiratory infections symptoms: No Gastro-intestinal symptoms: No Wvp-Fcgn-Aqcnbt symptoms: No Other Clinical Concerns Has tested positive for COVID-19 in last 30 days: No Exposure Risk Had contact w/person w/symptoms or Covid-19 (+) last 14 days: No Has High Risk Exposures ID'd by Health dept/Inf Control team: No Pertinent Comorbidities 65 years or older:: Yes Lives in Assisted Living facility:: No Has a chronic lung disease or moderate to severe asthma:: No Has a serious heart condition:: No Immunocompromised:: No Severely obese (Body Mass Index of 40 or higher):: No Diabetic:: Yes Has chronic kidney disease undergoing dialysis:: No Has liver disease:: No Past Medical Illness Past Medical History (Updated 10/02/22 @ 08:40 by Samson Colon CRT, PTA, BS) History of left heart catheterization Z98.890 Obesity (BMI 30.0-34.9) E66.9 Erectile dysfunction N52.9 Bradycardia R00.1 Benign prostatic hyperplasia N40.0 Type 2 diabetes mellitus without complications E11.9 Hyperlipidemia, unspecified E78.5 Essential (primary) hypertension I10 Atherosclerotic heart disease of [place] coronary artery without angina pectoris I25.10 Past Surgical History Past Surgical History (Updated 10/12/23 @ 08:14 by Samson Colon, EBER, PTA, BS) S/P AVR (aortic valve replacement) and aortoplasty ( 09/18/23) Z95.2 History of back surgery Z98.890 Social History Smoking History Smoking Status: Former smoker Alcohol Use Alcohol Usage: Yes (Beer once in a great while) Substance Abuse Hx Substance Use: No Occupation 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 I stay active) Recreational Activities: I am able to engage in all my recreational activities Social Environment Status Marital Status: Current Living Arrangements Living Environment:: Spouse Children How many children do you have?: 4 Do any of your children live nearby?: Yes Safety Do you feel safe in your surroundings?: Yes Assistance Do you need any assistance at home?: No Review of Systems Re (more content not included)... Normal [facility] 09-18-2023 [facility] Office Visit (WIN ) ERIK CLARKE ([id number]) 1955 M Date Time Provider Department 09/18/23 8:40 AM BURKE BARRON During your visit today, we recorded the following information about you: Pulse Blood pressure Weight Height 58/minute 152/78 89.9 kg 1.727 m Burke Barron, 09/18/2023 9:20 AM Signed [facility] CARDIOLOGY [facility] OUTPATIENT VISIT DATE September 18, 2023 PRIMARY CARE PHYSICIAN: [place] [address] HISTORY OF PRESENT ILLNESS: Mr. Clarke is a 67 year old male. The patient returns for follow-up secondary to history of hypertrophic obstructive cardiomyopathy with severe stenosis now status post myomectomy and AVR with previous history of coronary disease status post stenting, hypertension, hyperlipidemia and diabetes. He has incisional discomfort but otherwise is asymptomatic. He denies chest discomfort, dyspnea, orthopnea, paroxysmal nocturnal dyspnea, palpitations, near-syncope, syncope, GI/ bleeding or melena. PLAN AND RECOMMENDATIONS: The patient appears stable without apparent symptoms that would suggest angina or cardiac decompensation. Heart rate, blood pressure and recent cholesterol profile are favorable. We have therefore made no additions or changes. He plans on enrolling in cardiac rehab in the near future. Will look forward to reevaluate him in 3 months time. Dietary and lifestyle modification was reemphasized to facilitate risk factor reduction. Vitals: BP 152/78 Pulse (!) 58 Ht 172.7 cm (5' 8) Wt 89.9 kg (198 lb 3.1 oz) SpO2 98% BMI 30.14 kg/m? Physical Exam Vitals reviewed. Constitutional: General: He is not in acute distress. Appearance: He is well-developed. He is not diaphoretic. HENT: Head: Normocephalic and atraumatic. Right Ear: External ear normal. Left Ear: External ear normal. Nose: Nose normal. Eyes: General: No scleral icterus. Right eye: No discharge. Left eye: No discharge. Pupils: Pupils are equal, round, and reactive to light. Neck: Thyroid: No thyromegaly. Vascular: No JVD. Cardiovascular: Rate and Rhythm: Normal rate and regular rhythm. Heart sounds: Murmur heard. Systolic murmur is present with a grade of 1/6. No friction rub. No gallop. Pulmonary: Effort: Pulmonary effort is normal. No respiratory distress. Breath sounds: Normal breath sounds. No wheezing or rales. Abdominal: General: Bowel sounds are normal. Palpations: Abdomen is soft. Musculoskeletal: General: Normal range of motion. Cervical back: Neck supple. Skin: General: Skin is warm and dry. Coloration: Skin is not pale. Neurological: Mental Status: He is alert and oriented to person, place, and time. Cranial Nerves: No cranial nerve deficit. Psychiatric: Mood and Affect: Mood is not anxious or depressed. Behavior: Behavior normal. Thought Content: Thought content normal. Judgment: Judgment normal. Review of Systems Constitutional: Negative for activity change, appetite change, fatigue and unexpected weight change. HENT: Negative for ear pain and trouble swallowing. Eyes: Negative for pain and visual disturbance. Respiratory: Negative for chest tightness and shortness of breath. Cardiovascular: Positive for chest pain (incisional). Negative for palpitations and leg swelling. Gastrointestinal: Negative for abdominal pain and blood in stool. Endocrine: Negative for cold intolerance and heat intolerance. Genitourinary: Negative for dysuria, hematuria and scrotal swelling. Musculoskeletal: Negative for arthralgias and myalgias. Skin: Negative for pallor and rash. Allergic/Immunologic: Negative for immunocompromised state. Neurological: Negative for dizziness, syncope and light-headedness. Hematological: Negative for adenopathy. Does not bruise/bleed easily. Psychiatric/Behavioral: Negative for sleep disturbance. The patient is not nervous/anxious. PAST MEDICAL HISTORY Diagnosis Date BPH (benign prostatic hypertrophy) with urinary retention 01/22/2012 Bradycardia ED (erectile dysfunction) Hyperlipidemia LDL goal < 100 01/22/2012 Hypertension 01/22/2012 Obesity Type 2 diabetes mellitus not at goal 01/22/2012 PAST SURGICAL HISTORY Procedure Laterality Date CARDIAC CATHETERIZATION HX 1999, 2004 no blockages, mildly leaky valve LEFT HEART CATH,PERCUTANEOUS 06/2022 stent placed PAST SURGICAL HISTORY OF 12/2015 L3-S1 laminectomy, decompression PAST SURGICAL HISTORY OF 01/16/2017 Lumbar reexploration L3-S1 with laminectomy and decompression Social History Tobacco Use Smoking status: Former Types: Cigarettes Quit date: 01/21/2010 Years since quittin.6 Smokeless tobacco: Current Types: Chew Tobacco comments: Patient states he has been chewing (more content not included)... Normal [facility] XR Chest PA and Lateralon IMPRESSION: No acute radiographic abnormality. Drying Can Worker: ANDREW Transcribe Date/Time: Aug 15 2023 7:40P Dictated by : PARTHA BEE MD This examination was interpreted and the report reviewed and electronically signed by: PARTHA BEE MD on Aug 15 2023 7:40PM [facility] DIVISION OF RADIOLOGY * * *Final Report* * * DATE OF EXAM: Aug 15 2023 7:35AM JIX [id number] - XR CHEST 2V FRONTAL/LAT / PROCEDURE REASON: multiple diagnoses * * * * Physician Interpretation * * * * EXAMINATION: CHEST RADIOGRAPH (2 VIEW FRONTAL & LATERAL) CLINICAL HISTORY: HOCM (hypertrophic obstructive cardiomyopathy) (HCC) Aortic valve stenosis, etiology of cardiac valve disease unspecified Hyperlipidemia, unspecified hyperlipidemia type Hypertension, unspecified type MQ: XC2_6 EXAM DATE/TIME: 08/15/2023 7:35 AM COMPARISON: 04/22/2019 RESULT: Lines, tubes, and devices: None. Lungs and pleura: No consolidation. No lung mass. No pleural effusion. No pneumothorax. Cardiomediastinal silhouette: Normal cardiomediastinal silhouette. Mild atherosclerotic changes in the aortic arch. Bones and soft tissues: Unremarkable. DIVISION OF RADIOLOGY Provider, [facility] - 08/15/2023 * * *Final Report* * * DATE OF EXAM: Aug 15 2023 7:35AM JIX [id number] - XR CHEST 2V FRONTAL/LAT / PROCEDURE REASON: multiple diagnoses * * * * Physician Interpretation * * * * EXAMINATION: CHEST RADIOGRAPH (2 VIEW FRONTAL & LATERAL) CLINICAL HISTORY: HOCM (hypertrophic obstructive cardiomyopathy) (HCC) Aortic valve stenosis, etiology of cardiac valve disease unspecified Hyperlipidemia, unspecified hyperlipidemia type Hypertension, unspecified type MQ: XC2_6 EXAM DATE/TIME: 08/15/2023 7:35 AM COMPARISON: 04/22/2019 RESULT: Lines, tubes, and devices: None. Lungs and pleura: No consolidation. No lung mass. No pleural effusion. No pneumothorax. Cardiomediastinal silhouette: Normal cardiomediastinal silhouette. Mild atherosclerotic changes in the aortic arch. Bones and soft tissues: Unremarkable. IMPRESSION IMPRESSION: No acute radiographic abnormality. Drying Can Worker: ANDREW Transcribe Date/Time: Aug 15 2023 7:40P Dictated by : PARTHA BEE MD This examination was interpreted and the report reviewed and electronically signed by: PARTHA BEE MD on Aug 15 2023 7:40PM EST [facility] Radiology Study observation (narrative) [facility] XR Chest PA and LateralOrder ed By: [facility] Provider on 08-15-2023 [facility] CNOVon 07-16-2023 [facility] Office Visit (CARMED ) SHARMILAERIK Carver ([id number]) 1955 M Date Time Provider Department 07/16/23 3:00 PM BURKE BARRON During your visit today, we recorded the following information about you: Pulse Blood pressure Weight Height 76/minute 118/62 90.2 kg 1.727 m Burke Barron DO 07/16/2023 5:11 PM Signed [facility] C[facility] OUTPATIENT VISIT DATE July 16, 2023 PRIMARY CARE PHYSICIAN: [place] [address] HISTORY OF PRESENT ILLNESS: Mr. Clarke is a 67 year old male. The patient returns for follow-up second history of medical disease status post stenting with moderate aortic stenosis and findings of hypertrophic obstructive cardiomyopathy who is pending surgery for myomectomy and aortic valve replacement. Additional history includes hypertension, hyperlipidemia and diabetes. Recent testing demonstrates patency of his valve. He admits to dyspnea with moderate exertion. He denies anginal sounding chest discomfort, orthopnea, paroxysmal nocturnal dyspnea, palpitations, near-syncope or syncope. PLAN AND RECOMMENDATIONS: The patient overall is stable without changes in his symptoms regarding his obstruction. He has no changes in symptoms of suggest angina or cardiac decompensation overall as well. Heart rate, blood pressure recent cholesterol profile are favorable as well. We have therefore made no additions or changes. Dietary and lifestyle modification was reemphasized to facilitate risk factor reduction. Will look forward to reevaluating him following his open heart procedure. Vitals: BP 118/62 Pulse 76 Ht 172.7 cm (5' 8) Wt 90.2 kg (198 lb 13.7 oz) SpO2 98% BMI 30.24 kg/m? Physical Exam Vitals reviewed. Constitutional: General: He is not in acute distress. Appearance: He is well-developed. He is not diaphoretic. HENT: Head: Normocephalic and atraumatic. Right Ear: External ear normal. Left Ear: External ear normal. Nose: Nose normal. Eyes: General: No scleral icterus. Right eye: No discharge. Left eye: No discharge. Pupils: Pupils are equal, round, and reactive to light. Neck: Thyroid: No thyromegaly. Vascular: No JVD. Cardiovascular: Rate and Rhythm: Normal rate and regular rhythm. Heart sounds: Murmur heard. Crescendo decrescendo systolic murmur is present with a grade of 2/6. No friction rub. No gallop. Pulmonary: Effort: Pulmonary effort is normal. No respiratory distress. Breath sounds: Normal breath sounds. No wheezing or rales. Abdominal: General: Bowel sounds are normal. Palpations: Abdomen is soft. Musculoskeletal: General: Normal range of motion. Cervical back: Neck supple. Skin: General: Skin is warm and dry. Coloration: Skin is not pale. Neurological: Mental Status: He is alert and oriented to person, place, and time. Cranial Nerves: No cranial nerve deficit. Psychiatric: Mood and Affect: Mood is not anxious or depressed. Behavior: Behavior normal. Thought Content: Thought content normal. Judgment: Judgment normal. Review of Systems Constitutional: Positive for fatigue. Negative for activity change, appetite change and unexpected weight change. HENT: Negative for ear pain and trouble swallowing. Eyes: Negative for pain and visual disturbance. Respiratory: Positive for shortness of breath. Negative for chest tightness. Cardiovascular: Positive for chest pain (fleeting at rest for 5-6 seconds, atypical). Negative for palpitations and leg swelling. Gastrointestinal: Negative for abdominal pain and blood in stool. Endocrine: Negative for cold intolerance and heat intolerance. Genitourinary: Negative for dysuria, hematuria and scrotal swelling. Musculoskeletal: Negative for arthralgias and myalgias. Skin: Negative for pallor and rash. Allergic/Immunologic: Negative for immunocompromised state. Neurological: Negative for dizziness, syncope and light-headedness. Hematological: Negative for adenopathy. Does not bruise/bleed easily. Psychiatric/Behavioral: Negative for sleep disturbance. The patient is not nervous/anxious. PAST MEDICAL HISTORY Diagnosis Date BPH (benign prostatic hypertrophy) with urinary retention 01/22/2012 Bradycardia ED (erectile dysfunction) Hyperlipidemia LDL goal < 100 01/22/2012 Hypertension 01/22/2012 Obesity Type 2 diabetes mellitus not at goal 01/22/2012 PAST SURGICAL HISTORY Procedure Laterality Date CARDIAC CATHETERIZATION HX 1999, 2004 no blockages, mildly leaky valve LEFT HEART CATH,PERCUTANEOUS 06/2022 stent placed PAST SURGICAL HISTORY OF 12/2015 L3-S1 laminectomy, decompression PAST SURGICAL HISTORY OF 01/16/2017 Lumbar reexploration L3-S1 with laminectomy and decompression Social History Tobacco Use Smo (more content not included)... Normal [facility] No Panel Informationon 06-26 [facility] GLUCOSE, BLOOD (POC)on 03-19 Glucose [Mass/Vol] 131 mg/dL Abnormal 74 - 99 mg/dL [facility] ECHOon 07-06-2022 [facility] NM CARDIAC PERF STRESS/PHARM on 01-02-2022 [facility] HEMOGLOBIN A1C (POC)on 12-13 HbA1c (Bld) [Mass fraction] 7.9 % Abnormal 4.2 - 5.6 % [facility] CT UROGRAM WO/W IVCONon 01-0 CT UROGRAM WO/W IVCON Final Report DATE OF EXAM: Apr 26 2020 8:37AM [facility] [id number] - CT UROGRAM WO/W IVCON / PROCEDURE REASON: Gross hematuria Physician Interpretation EXAMINATION: CT ABDOMEN AND PELVIS WITHOUT AND WITH IV CONTRAST, INCLUDING EXCRETORY PHASE IMAGING (CT UROGRAM) 3D RECONSTRUCTIONS CLINICAL HISTORY: Gross hematuria. TECHNIQUE: CT urogram protocol including unenhanced, renal parenchymal phase and excretory phase renal imaging was obtained following IV contrast. Normal saline was also administered IV. No oral contrast was given. 3D image post-processing was performed and archived at the request of the referring physician, on the CT scanner workstation without concurrent physician supervision. MQ: CTU_2 Contrast: IV: 150 ml of Omnipaque 300 Oral Contrast: None CT Radiation dose: Integrated dose-length product (DLP) for this visit = 2181.[address] Dose Reduction Employed: Automated exposure control (AEC) COMPARISON: Ultrasound dated 04/08/20 RESULT: Kidneys and urinary tract: Right: No renal calculi. Small cysts. The opacified calices, renal pelvis and ureter are normal without dilation, filling defect, or stricture. Left: No renal calculi. Small cysts. There is a 4 mm calculus within the distal left ureter with no associated hydronephrosis. Most of the left ureter appears normal in caliber. There is mild dilatation of the distal aspect of the left ureter as well as mild distal ureteral wall thickening/wall enhancement. Bladder: Mild diffuse urinary bladder wall thickening with no focal mass or urinary bladder calculus. Abdomen and Pelvis: Liver: No mass. Biliary: No bile duct dilation. Gallbladder is unremarkable. Spleen: No mass. No splenomegaly. Pancreas: No mass or duct dilation. Adrenals: No mass. GI tract: No dilation or wall thickening. Normal appendix. Lymph nodes: No abdominal or pelvic lymphadenopathy. Mesentery/Peritoneum: No ascites or mass. Retroperitoneum: No mass. Vasculature: The celiac axis and SMA are patent. The portal vein and branches, splenic vein, SMV, and hepatic veins are patent. Arterial atherosclerotic disease without aneurysm. Pelvis: No mass, ascites or fluid collection. Prominent heterogeneous prostate gland. Bones and Soft Tissues: No significant finding. Lower thorax: Unremarkable. Integrated Specialist (topogram) images: No additional findings. IMPRESSION: Small bilateral renal cysts. 4 mm stone within the distal left ureter, there is minimal dilatation of the distal ureter but no proximal ureteral dilatation and no hydronephrosis. There is some ureteral wall thickening/enhancement as well suggesting focal ureteritis. Mild diffuse urinary bladder wall thickening. Prominent heterogeneous prostate gland. Drying Can Worker: PSCB Transcribe Date/Time: Apr 26 2020 2:25P Dictated by : ROSY PERALTA MD This examination was interpreted and the report reviewed and electronically signed by: ROSY PERALTA MD on Apr 26 2020 2:42PM EST Normal [facility] US KIDNEY/BLADDERon 04-08-20 US KIDNEY/BLADDER Final Report DATE OF EXAM: Apr 08 2020 9:32AM LDU 1055 - US KIDNEY/BLADDER / PROCEDURE REASON: Gross hematuria Physician Interpretation EXAMINATION: RENAL ULTRASOUND CLINICAL HISTORY: Hematuria TECHNIQUE: Sonography of the kidneys and urinary bladder was performed. Images were obtained and stored in a permanent archive. MQ: UR_1 COMPARISON: None RESULT: Right Kidney: -Renal length: 12.5 cm -Parenchyma: Normal parenchymal echogenicity. Normal parenchymal thickness. -Collecting system: No hydronephrosis. -Calculus: No echogenic, shadowing calculus. -Lesion: None. Assessment is mildly limited by sonographic window. Left Kidney: -Renal length: 13.5 cm -Parenchyma: Normal parenchymal echogenicity. Normal parenchymal thickness. -Collecting system: No hydronephrosis. -Calculus: No echogenic, shadowing calculus. -Lesion: None. Bladder: There is possible mild layering debris or mild wall thickening along the posterior aspect of the urinary bladder. No focal mass is seen. Prevoid volume is 276 cc. Postvoid volume was not obtained. Prostate gland is somewhat enlarged and heterogeneous and focally indents the urinary bladder. This measures 3.9 x 5.7 x 5.2 cm IMPRESSION: 1. Possible layering debris or wall thickening of the urinary bladder. Correlate with clinical symptoms. CT urogram May BE useful for further assessment. 2. Kidneys are unremarkable 3. Mildly enlarged heterogeneous prostate Drying Can Worker: PSCB Transcribe Date/Time: Apr 08 2020 3:41P Dictated by : LUNA CARRIZALES MD This examination was interpreted and the report reviewed and electronically signed by: LUNA CARRIZALES MD on Apr 08 2020 3:44PM EST Normal [facility] BUNon 04-27-2017 Urea nitrogen 14 mg/dL Normal 9-24 [facility] Reference Lab Comment on above: Performed By: #### B OJSE DAY ####[facility] [address] [place], [place] [phone] Creatinineon 04-27-2017 Creatinine 0.62 mg/dL Low 0.73-1.22 [facility] Reference [facility] Comment on above: Performed By: #### B JOSE DAY ####[facility] [address] [place], [place] [phone] eGFR (non-black) mL/min/{1.73_m2} Normal [facility] Reference Lab Comment on above: Performed By: #### B UN, CRET1 ####[facility] [address] [place], [place] [phone] CARDIAC STRESS/REST (MYOCARD IAL PERFUSION/MIBI)on 01-11-2017 CARDIAC STRESS/REST (MYOCARDIAL PERFUSION/MIBI) Name: ERIK CLARKE STUDY:PART 2 STRESS OR REST (NO CHARGE); CARDIAC STRESS/REST (MYOCARDIALPERFUSION/MIBI); 01/11/2017 11:49 am INDICATION:Signs/Symptoms: abnormal EKG/pre-op. abnormal EKG preoperative toevaluation with risk factors of smoking in the past, hypertension andhyperlipidemia COMPARISON:None. [id number] ORDERING CLINICIAN:HERNANDEZ BAUTISTA TECHNIQUE:DIVISION OF NUCLEAR MEDICINEPHARMACOLOGIC STRESS MYOCARDIAL PERFUSION SCAN, ONE DAY PROTOCOL The patient received an intravenous dose of 12 mCi of Tc-99m Myoviewand resting emission tomographic (SPECT) images of the myocardiumwere acquired. The patient then received an intravenous infusion of0.4mg regadenoson (Lexiscan) followed by an additional dose of 35.1mCi of Tc-99m Myoview. Stress phase SPECT images of the myocardiumwere then acquired. These included ECG-gated images to assess andquantify ventricular function. FINDINGS:There is normal homogeneous uptake of the isotope in the stress andresting images except for attenuation artifact noted to the inferiorwall with preserved LV systolic function and wall motion ejectionfraction of 60% IMPRESSION:Normal nuclear stress test with normal left ventricular systolicfunction and ejection fraction of 60%Electronically signed by: HERNANDEZ BAUTISTA MD [facility] PART 2 STRESS OR REST (NO CH ARGE)on 01-11-2017 PART 2 STRESS OR REST (NO CHARGE) Name: ERIK CLARKE STUDY:PART 2 STRESS OR REST (NO CHARGE); CARDIAC STRESS/REST (MYOCARDIALPERFUSION/MIBI); 01/11/2017 11:49 am INDICATION:Signs/Symptoms: abnormal EKG/pre-op. abnormal EKG preoperative toevaluation with risk factors of smoking in the past, hypertension andhyperlipidemia COMPARISON:None. [id number] ORDERING CLINICIAN:HERNANDEZ BAUTISTA TECHNIQUE:DIVISION OF NUCLEAR MEDICINEPHARMACOLOGIC STRESS MYOCARDIAL PERFUSION SCAN, ONE DAY PROTOCOL The patient received an intravenous dose of 12 mCi of Tc-99m Myoviewand resting emission tomographic (SPECT) images of the myocardiumwere acquired. The patient then received an intravenous infusion of0.4mg regadenoson (Lexiscan) followed by an additional dose of 35.1mCi of Tc-99m Myoview. Stress phase SPECT images of the myocardiumwere then acquired. These included ECG-gated images to assess andquantify ventricular function. FINDINGS:There is normal homogeneous uptake of the isotope in the stress andresting images except for attenuation artifact noted to the inferiorwall with preserved LV systolic function and wall motion ejectionfraction of 60% IMPRESSION:Normal nuclear stress test with normal left ventricular systolicfunction and ejection fraction of 60%Electronically signed by: HERNANDEZ BAUTISTA MD [facility] Syngo Nuclear Orderon 2016 Actifioo Nuclear Order [facility] , [address] [place] [address], [facility] [address] [address] and Xdzshlv Pharmacologic Stress TestPatient Name: Erik Clarke Ordering Physician: [id number] Hernandez Bautista MDStudy Date: 01/11/2017 Reading Physician: [id number] Hernandez Bautista MDMRN/PID: [id number] Referring Physician: Hernandez Bautista MDAccession/Order#: [id number] PCP: Denis Rivero MDDate of : 1955 Fellow:Gender: M [facility] LabAdmit Date: International Logistics Manager:Admission Status: Outpatient Nurse: Janey Sterling RN, CVRN-BCHeight: 172.72 cm Junior Qa Analyst: n/aWeight: 95.26 kg Technologist: Amira Espinoza CCTBSA: 2.09 m2 Additional Staff:BMI: 31.93 kg/m2 cc report to:Age: 61 years cc report to: [id number] Hernandez Bautista MDStudy Type: Syngo Nuclear OrderDiagnosis/ICD: R94.31 Abnormal electrocardiogram [ECG] [EKG]; I10 Essential (primary) hypertensionIndication: Hypertension, Pre-Op Evaluation and Abnormal EKGProcedure/CPT: [id number] NUCLEAR PHARMACOLOGIC STRESS TEST (98925); [id number] REGADENOSON ([id number]) Study Details: Correct procedure and correct patient verified verbally and with ID Band checked. Patient History: Hypertension and hyperlipidemia.Allergies: None.Smoker: Former.Diabetes: Yes. Medications: The patient's prescribed medication is Crestor, Fenofibrate, Cardizem, HCTZ, Lisinpril, Metoprolol, ASA, Metformin, Januvia. The patient did not take medications as prescribed. Patient Performance: Patient received a total of 0.4 mg of Regadenoson at 10:26:49 AM. Patient received a total of 35.1 mCi of Myoview at 10:27:52 AM. The patient exercised during infusion. The peak heart rate achieved was 88 bpm, which was 56 % of the age predicted target heart rate of 158 bpm. The resting blood pressure was 170/80 mmHg with a heart rate of 68 bpm. The standing blood pressure was 170/80 mmHg with a heart rate of 69 bpm. The patient developed no symptoms during the stress exam. The blood pressure response was normal. The test was terminated due to: completed lab protocol. Patient has met the discharge criteria and is discharged to home. Baseline ECG: Resting ECG showed normal sinus rhythm with left axis deviation, poor R-wave progression and prior anterior infarct. Stress ECG: Stress ECG showed normal sinus rhythm, with no abnormal findings. No ST changes. Stress Stage Data:+--+------+-------+--- +HRSys BPDias BPComments +--+------+-------+-------- -------+67826 80 +--+------+-------+-------- -------+63322 80 +--+------+-------+-------- -------+71 walk, 1 minute +--+------+-------+-------- -------+75 walk, 2 minutes+--+------+-------+- +43267 84 walk, 3 minutes+--+------+-------+- +09079 86 walk, 4 minutes+--+------+-------+- + Recovery ECG: Recovery ECG showed normal sinus rhythm, with no abnormal findings. + +--+------+--- ----+ + HRSys BPDias BPComments + +--+------+--- ----+ +Recovery I [id number] 82 0100 minutes+ +--+--- ---+-------+ +[place] [address] 78 0200 minutes+ +--+--- ---+-------+ +Re covery [id number] 72 0400 minutes+ +--+--- ---+-------+ + Summary: 1. No clinical or electrocardiographic evidence for ischemia at a maximal infusion. 2. No ECG changes from baseline. 3. Nuclear image results are reported separately.[id number] Hernandez Bautista MDElectronically signed on 01/11/2017 at 4:15:25 PM Final Normal [facility] Echocardiogramon 01-08-2017 Echocardiogram [facility] , [address], [address], [place], [place] [address] and HVPEWEIZVOLSB ECHOCARDIOGRAM REPORT Patient Name: ERIK CLARKE Reading Physician: [id number] Shine Mccormick MDStudy Date: 01/08/2017 Referring Physician: Hernandez Bautista MDMRN/PID: [id number] PCP:Accession/Order#: [id number] Department Location:Date of : 1955 Fellow:Gender: M Nurse:Admit Date: Junior Qa Analyst: Trang Del Toro RDCSAdmission Status: Outpatient Additional Staff:Height: 172.72 cm CC Report to:Weight: 95.25 kg Study Type: EchocardiogramBSA: 2.09 [id number] Pressure: 132 /82 mmHgDiagnosis/ICD: R94.31 Abnormal electrocardiogram [ECG] [EKG]Indication: Pre op clearanceProcedure/CPT: Echo Complete w/Full Doppler (17363)Patient History:Diabetes: YesPertinent History: HTN and Hyperlipidemia.Study Detail: The following Echo studies were performed: 2D, M-Mode, Doppler and color flow. Technically challenging study due to body habitus. PHYSICIAN INTERPRETATION:Left Ventricle: The left ventricular systolic function is normal, with an estimated ejection fraction of 60-65%. The left ventricular cavity size is normal. The left ventricular septal wall thickness is moderately increased. There is mildly increased left ventricular posterior wall thickness. Spectral Doppler shows an impaired relaxation pattern of left ventricular diastolic filling. There is a mild left ventricular outflow tract obstruction. The resting gradient is 12 mmHg.Left Atrium: The left atrium is moderately dilated.Right Ventricle: The right ventricle is normal in size. There is normal right ventricular global systolic function.Right Atrium: The right atrium is normal in size.Aortic Valve: The aortic valve is trileaflet. There is evidence of moderate aortic valve stenosis.There is no evidence of aortic valve regurgitation. The peak instantaneous gradient of the aortic valve is 39.3 mmHg. The mean gradient of the aortic valve is 21.4 mmHg.Mitral Valve: The mitral valve is normal in structure. There is mild systolic anterior motion with obstructive septal contact involving the anterior leaflet. There is no evidence of mitral valve regurgitation. There is mild TRELL noted with a resting LVOT gradient of 12mmHg. Provocotive maneuvers were not completed.Tricuspid Valve: The tricuspid valve is structurally normal. There is mild tricuspid regurgitation.Pulmonic Valve: The pulmonic valve is not well visualized. There is no indication of pulmonic valve regurgitation.Pericardium: There is no pericardial effusion noted.Aorta: The aortic root is normal. CONCLUSIONS: 1. The left ventricular systolic function is normal with a 60-65% estimated ejection fraction. 2. Moderately increased left ventricular septal thickness. 3. Spectral Doppler shows an impaired relaxation pattern of left ventricular diastolic filling. 4. The left atrium is moderately dilated. 5. There is mild TRELL noted with a resting LVOT gradient of 12mmHg. Provocotive maneuvers were not completed. 6. Moderate aortic valve stenosis.QUANTITATIVE DATA SUMMARY:2D MEASUREMENTS: Normal Ranges:IVSd: 1.56 cm (0.6-1.1cm)LVPWd: 1.21 cm (0.6-1.1cm)LVIDd: 4.73 cm (3.9-5.9cm)LVIDs: 3.20 cmLV Mass Index: 126.0 g/m2LV % FS 32.4 %LA VOLUME: Normal Ranges:LA Vol A4C: 44.5 ml (22+/-6mL/m2)LA Vol A2C: 40.2 mlLA Vol BP: 44.7 mlLA Vol Index A4C: 21.3 ml/m2LA Vol Index A2C: 19.3 ml/m2LA Vol Index BP: 21.4 ml/m2LA Volume Index: 21.0 ml/m2LA Vol A4C: 40.8 mlLA Vol A2C: 38.1 mlM-MODE MEASUREMENTS: Normal Ranges:LAs: 5.33 cm (2.7-4.0cm)AORTA MEASUREMENTS: Normal Ranges:Asc Ao, d: 3.30 cm (2.1-3.4cm)Ao Arch: 3.00 cm (2.0-3.6cm)LV SYSTOLIC FUNCTION BY 2D PLANIMETRY (MOD): Normal Ranges:EF-A4C View: 65.9 % (>55%)EF-A2C View: 72.8 %EF-Biplane: 67.4 %LV DIASTOLIC FUNCTION: Normal Ranges:MV Peak E: 0.76 m/s (0.7-1.2 m/s)MV Peak A: 1.28 m/s (0.42-0.7 m/s)E/A Ratio: 0.59 (1.0-2.2)MV lateral e' 0.07 m/sMV medial e' 0.06 m/sMV A Dur: 149.94 msecPulmV Sys Mathew: 84.26 cm/sPulmV Larios Mathew: 43.57 cm/sPulmV S/D Mathew: 1.93PulmV A Revs Mathew: 34.44 cm/sPulmV A Revs Dur: 99.19 msecAORTIC VALVE: Normal Ranges:AoV Vmax: 3.13 m/s (<1.7m/s)AoV Peak P.3 mmHg (<20mmHg)AoV Mean P.4 mmHg (1.7-11.5mmHg)LVOT Max Mathew: 1.76 m/s (<1.1m/s)AoV VTI: 62.98 cm (18-25cm)LVOT VTI: 35.78 cmLVOT Diameter: 2.19 cm (1.8-2.4cm)AoV Area, VTI: 2.15 cm2 (2.5-5.5cm2)AoV Area,Vmax: 2.13 cm2 (2.5-4.5cm2)AoV Dimensionless Index: 0.57RIGHT VENTRICLE:RV 1 3.2 cmRV 2 2.4 cmRV 3 6.5 cmTAPSE: 25.0 mmRV s' 0.18 m/sPULMONIC VALVE: Normal Ranges:PV Accel Time: 125 msec (>120ms)PV Max Mathew: 1.3 m/s (0.6-0.9m/s)PV Max P.6 mmHgPV Mean P.7 mmHgPV VTI: 26.19 cmPulmonary Veins:PulmV A Revs Dur: 99.19 msecPulmV A Revs Mathew: 34.44 cm/sPulmV Larios Mathew: 43.57 cm/sPulmV S/D Mathew: 1.93PulmV Sys Mathew: 84.26 cm/s [id number] Shine Mccormick MDElectronically signed on 01/08/2017 at 3:13:38 PM Final (Updated) Normal [facility] Vital Signs Date Time Vital Sign Value Performing Clinician Faci lity 12-10-2024 06:58-0400 Body height 172.7 cm Denis Rivero MD Work Phone: [facility] 12-10-2024 06:58-0400 Body mass index (BMI) [Ratio] 28.49 kg/m2 Denis Rivero MD Work Phone: [facility] 12-10-2024 06:58-0400 Body temperature 97.3 [degF] Denis Rivero MD Work Phone: [facility] 12-10-2024 06:58-0400 Body weight 85 kg Denis Rivero MD Work Phone: [facility] 12-10-2024 06:58-0400 Diastolic blood pressure 69 mm[Hg] Denis Rivero MD Work Phone: [facility] 12-10-2024 06:58-0400 Heart rate 83 /min Denis Rivero MD Work Phone: [facility] 12-10-2024 06:58-0400 Respiratory rate 16 /min Denis Rivero MD Work Phone: [facility] 12-10-2024 06:58-0400 SaO2% (BldA) [Mass fraction] 97 % Denis Rivero MD Work Phone: [facility] 12-10-2024 06:58-0400 Systolic blood pressure 119 mm[Hg] Denis Rivero MD Work Phone: [facility] 10-08-2024 15:21-0400 Body height 172.7 cm Jun Goncalves MD Work Phone: [facility] 10-08-2024 15:21-0400 Body mass index (BMI) [Ratio] 28.89 kg/m2 Jun Goncalves MD Work Phone: [facility] 10-08-2024 15:21-0400 Body weight 86.18 kg Jun Goncalves MD Work Phone: [facility] 08-28-2024 08:05-0400 Body height 170.2 cm Antoinette Alicea APRN.C CARDIOLOGY PHYSICIAN ASSISTANT Work Phone: [facility] 08-28-2024 08:05-0400 Body mass index (BMI) [Ratio] 29.69 kg/m2 Antoinette Alicea APRN.CNP Work Phone: [facility] 08-28-2024 08:05-0400 Body weight 86 kg Antoinette Alicea APRN.C CARDIOLOGY PHYSICIAN ASSISTANT Work Phone: [facility] 08-28-2024 08:05-0400 Diastolic blood pressure 78 mm[Hg] Antoinette Alicea APRN.ROUGHENER Work Phone: [facility] 08-28-2024 08:05-0400 Heart rate 79 /min Antoinette Alicea APRN.C CARDIOLOGY PHYSICIAN ASSISTANT Work Phone: [facility] 08-28-2024 08:05-0400 SaO2% (BldA) [Mass fraction] 98 % Antoinette Alicea APRN.CNP Work Phone: [facility] 08-28-2024 08:05-0400 Systolic blood pressure 126 mm[Hg] Antoinette Alicea APRN.ROUGHENER Work Phone: [facility] 07-21-2024 08:56-0400 Body height 170.2 cm Ryann Montiel APRN.CNP , DNP Work Phone: [facility] 07-21-2024 08:56-0400 Body mass index (BMI) [Ratio] 30.38 kg/m2 Ryann Montiel APRN.CNP, DNP Work Phone: [facility] 07-21-2024 08:56-0400 Body weight 88 kg Ryann Montiel APRN.CNP , DNP Work Phone: [facility] 07-21-2024 08:56-0400 Diastolic blood pressure 83 mm[Hg] Ryann Montiel APRN.CNP, DNP Work Phone: [facility] 07-21-2024 08:56-0400 Heart rate 84 /min Ryann Blaz HOME PERFORMANCE LABORER.ROUGHENER , DNP Work Phone: [facility] 07-21-2024 08:56-0400 Respiratory rate 16 /min Ryann Blaz HOME PERFORMANCE LABORER.ROUGHENER , DNP Work Phone: [facility] 07-21-2024 08:56-0400 SaO2% (BldA) [Mass fraction] 97 % Ryann Montiel HOME PERFORMANCE LABORER.ROUGHENER, DNP Work Phone: [facility] 07-21-2024 08:56-0400 Systolic blood pressure 138 mm[Hg] Ryann Montiel HOME PERFORMANCE LABORER.ROUGHENER, DNP Work Phone: [facility] 06-24-2024 10:07-0500 Respiratory rate 16 /min Marjorie Lee MD Work Phone: [facility] 06-24-2024 09:20-0500 Diastolic blood pressure 53 mm[Hg] Marjorie Lee MD Work Phone: [facility] 06-24-2024 09:20-0500 Heart rate 76 /min Marjorie Lee MD Work Phone: [facility] 06-24-2024 09:20-0500 SaO2% (BldA) [Mass fraction] 98 % Marjorie Lee MD Work Phone: [facility] 06-24-2024 09:20-0500 Systolic blood pressure 91 mm[Hg] Marjorie Lee MD Work Phone: [facility] 06-24-2024 08:39-0500 Body temperature 97.3 [degF] Marjorie Lee MD Work Phone: [facility] 06-05-2024 07:00-0500 Body height 172.7 cm Denis Rivero MD Work Phone: [facility] 06-05-2024 07:00-0500 Body mass index (BMI) [Ratio] 29.51 kg/m2 Denis Rivero MD Work Phone: [facility] 06-05-2024 07:00-0500 Body temperature 97.11 [degF] Denis Rivero MD Work Phone: [facility] 06-05-2024 07:00-0500 Body weight 88 kg Denis Rivero MD Work Phone: [facility] 06-05-2024 07:00-0500 Diastolic blood pressure 73 mm[Hg] Denis Rivero MD Work Phone: [facility] 06-05-2024 07:00-0500 Heart rate 91 /min Denis Rivero MD Work Phone: [facility] 06-05-2024 07:00-0500 SaO2% (BldA) [Mass fraction] 99 % Denis Rivero MD Work Phone: [facility] 06-05-2024 07:00-0500 Systolic blood pressure 137 mm[Hg] Denis Rivero MD Work Phone: [facility] 02-28-2024 08:01-0500 Body mass index (BMI) [Ratio] 29.84 kg/m2 Antoinette Alicea APRN.ROUGHENER Work Phone: [facility] 02-28-2024 08:01-0500 Body weight 89 kg Antoinette Alicea APRN.C CARDIOLOGY PHYSICIAN ASSISTANT Work Phone: [facility] 02-28-2024 08:01-0500 Diastolic blood pressure 80 mm[Hg] Antoinette Alicea APRN.ROUGHENER Work Phone: [facility] 02-28-2024 08:01-0500 Heart rate 81 /min Antoinette Alicea APRN.C CARDIOLOGY PHYSICIAN ASSISTANT Work Phone: [facility] 02-28-2024 08:01-0500 SaO2% (BldA) [Mass fraction] 97 % Antoinette Alicea APRN.ROUGHENER Work Phone: [facility] 02-28-2024 08:01-0500 Systolic blood pressure 134 mm[Hg] Antoinette Alicea APRN.ROUGHENER Work Phone: [facility] 01-01-2024 09:13-0400 Diastolic blood pressure 89 mm[Hg] Ophelia Umanacasio formerly [facility] Work Phone: [facility] 01-01-2024 09:13-0400 Heart rate 85 /min Ophelia Lyndsaycasi o formerly [facility] Work Phone: [facility] 01-01-2024 09:13-0400 Systolic blood pressure 153 mm[Hg] Ophelia Paneccasio formerly [facility] Work Phone: [facility] 12-27-2023 08:07-0400 Body mass index (BMI) [Ratio] 29.34 kg/m2 Antoinette Alicea APRN.ROUGHENER Work Phone: [facility] 12-27-2023 08:07-0400 Body weight 87.5 kg Antoinette Alicea APRN.C CARDIOLOGY PHYSICIAN ASSISTANT Work Phone: [facility] 12-27-2023 08:07-0400 Diastolic blood pressure 85 mm[Hg] Antoinette Alicea APRN.ROUGHENER Work Phone: [facility] 12-27-2023 08:07-0400 Heart rate 68 /min Antoinette Alicea APRN.C CARDIOLOGY PHYSICIAN ASSISTANT Work Phone: [facility] 12-27-2023 08:07-0400 SaO2% (BldA) [Mass fraction] 96 % Antoinette Alicea APRN.ROUGHENER Work Phone: [facility] 12-27-2023 08:07-0400 Systolic blood pressure 127 mm[Hg] Antoinette Alicea APRN.ROUGHENER Work Phone: [facility] 12-06-2023 07:19-0400 Diastolic blood pressure 76 mm[Hg] Denis Rivero MD Work Phone: [facility] 12-06-2023 07:19-0400 Systolic blood pressure 124 mm[Hg] Denis Rivero MD Work Phone: [facility] 12-06-2023 07:04-0400 Body height 172.7 cm Denis Rivero MD Work Phone: [facility] 12-06-2023 07:04-0400 Body mass index (BMI) [Ratio] 29.27 kg/m2 Denis Rivero MD Work Phone: [facility] 12-06-2023 07:04-0400 Body temperature 97.5 [degF] Denis Rivero MD Work Phone: [facility] 12-06-2023 07:04-0400 Body weight 87.3 kg Denis Rivero MD Work Phone: [facility] 12-06-2023 07:04-0400 Heart rate 86 /min Denis Rivero MD Work Phone: [facility] 12-06-2023 07:04-0400 SaO2% (BldA) [Mass fraction] 97 % Denis Rivero MD Work Phone: [facility] 11-30-2023 15:10-0400 Body height 172.7 cm Ca er PA-C Work Phone: [facility] 11-30-2023 15:10-0400 Body mass index (BMI) [Ratio] 28.89 kg/m2 Ca Queener PA-C Work Phone: [facility] 11-30-2023 15:10-0400 Body weight 86.2 kg Ca Queener PA-C Work Phone: [facility] 11-30-2023 15:10-0400 Diastolic blood pressure 82 mm[Hg] Ca Queener PA-C Work Phone: [facility] 11-30-2023 15:10-0400 Heart rate 83 /min Ca Queener PA-C Work Phone: [facility] 11-30-2023 15:10-0400 Systolic blood pressure 144 mm[Hg] Ca Queener PA-C Work Phone: [facility] 11-20-2023 11:11-0400 Diastolic blood pressure 93 mm[Hg] Ophelia Null formerly [facility] Work Phone: [facility] 11-20-2023 11:11-0400 Heart rate 87 /min Ophelia Paneccasi o formerly [facility] Work Phone: [facility] 11-20-2023 11:11-0400 Systolic blood pressure 173 mm[Hg] Ophelia Paneccasio formerly [facility] Work Phone: [facility] 10-30-2023 09:22-0400 Diastolic blood pressure 96 mm[Hg] Ophelia Paneccasio formerly [facility] Work Phone: [facility] 10-30-2023 09:22-0400 Heart rate 84 /min Ophelia Paneccasi o formerly [facility] Work Phone: [facility] 10-30-2023 09:22-0400 Systolic blood pressure 179 mm[Hg] Ophelia Paneccasio formerly [facility] Work Phone: [facility] 09-18-2023 08:37-0400 Body height 172.7 cm Burke Barron DO Work Phone: [facility] 09-18-2023 08:37-0400 Body mass index (BMI) [Ratio] 30.14 kg/m2 Burke Barron DO Work Phone: [facility] 09-18-2023 08:37-0400 Body weight 89.9 kg Burke Barron DO Work Phone: [facility] 09-18-2023 08:37-0400 Diastolic blood pressure 78 mm[Hg] Burke Barron DO Work Phone: [facility] 09-18-2023 08:37-0400 Heart rate 58 /min Burke Barron DO Work Phone: [facility] 09-18-2023 08:37-0400 SaO2% (BldA) [Mass fraction] 98 % Burke Barron DO Work Phone: [facility] 09-18-2023 08:37-0400 Systolic blood pressure 152 mm[Hg] Burkeazeb Barron DO Work Phone: [facility] 09-04-2023 08:25-0400 Diastolic blood pressure 70 mm[Hg] Rimma Varela APRN.ROUGHENER Work Phone: [facility] 09-04-2023 08:25-0400 Systolic blood pressure 140 mm[Hg] Rimma Varela APRN.ROUGHENER Work Phone: [facility] 09-04-2023 08:06-0400 Body height 172.7 cm Rimma Varela APRN.C CARDIOLOGY PHYSICIAN ASSISTANT Work Phone: [facility] 09-04-2023 08:06-0400 Body mass index (BMI) [Ratio] 30.81 kg/m2 Rimma Varela APRN.ROUGHENER Work Phone: [facility] 09-04-2023 08:06-0400 Body temperature 98.01 [degF] Rimma Varela APRN.C CARDIOLOGY PHYSICIAN ASSISTANT Work Phone: [facility] 09-04-2023 08:06-0400 Body weight 91.9 kg Rimma Varela APRN.C CARDIOLOGY PHYSICIAN ASSISTANT Work Phone: [facility] 09-04-2023 08:06-0400 Heart rate 82 /min Rimma Varela APRN.C CARDIOLOGY PHYSICIAN ASSISTANT Work Phone: [facility] 09-04-2023 08:06-0400 SaO2% (BldA) [Mass fraction] 97 % Rimma Varela APRN.ROUGHENER Work Phone: [facility] 08-15-2023 09:03-0400 Body height 172.7 cm [facility] Work Phone: [facility] 08-15-2023 09:03-0400 Body mass index (BMI) [Ratio] 30.41 kg/m2 [facility] Work Phone: [facility] 08-15-2023 09:03-0400 Body temperature 98.01 [degF] [facility] Work Phone: [facility] 08-15-2023 09:03-0400 Body weight 90.72 kg [facility] Work Phone: [facility] 08-15-2023 09:03-0400 Diastolic blood pressure 66 mm[Hg] [facility] Work Phone: [facility] 08-15-2023 09:03-0400 Heart rate 76 /min [facility] Work Phone: [facility] 08-15-2023 09:03-0400 Respiratory rate 20 /min [facility] Work Phone: [facility] 08-15-2023 09:03-0400 SaO2% (BldA) [Mass fraction] 98 % [facility] Work Phone: [facility] 08-15-2023 09:03-0400 Systolic blood pressure 135 mm[Hg] [facility] Work Phone: [facility] 07-16-2023 14:50-0400 Body height 172.7 cm Burke Barron DO Work Phone: [facility] 07-16-2023 14:50-0400 Body weight 90.2 kg Burke Barron DO Work Phone: [facility] 07-16-2023 14:50-0400 Diastolic blood pressure 62 mm[Hg] Burke Barron DO Work Phone: [facility] 07-16-2023 14:50-0400 Heart rate 76 /min Burke Barron DO Work Phone: [facility] 07-16-2023 14:50-0400 SaO2% (BldA) [Mass fraction] 98 % Burke Barron DO Work Phone: [facility] 07-16-2023 14:50-0400 Systolic blood pressure 118 mm[Hg] Burke Barron DO Work Phone: [facility] 03-19-2023 10:22-0500 Body height 172.7 cm Antoinette Alicea APRN.C CARDIOLOGY PHYSICIAN ASSISTANT Work Phone: [facility] 03-19-2023 10:22-0500 Body weight 90.7 kg Antoinette Alicea APRN.C CARDIOLOGY PHYSICIAN ASSISTANT Work Phone: [facility] 03-19-2023 10:22-0500 Diastolic blood pressure 60 mm[Hg] Antoinette Alicea HOME PERFORMANCE LABORER.ROUGHENER Work Phone: [facility] 03-19-2023 10:22-0500 Heart rate 78 /min Antoinette Alicea APRN.C CARDIOLOGY PHYSICIAN ASSISTANT Work Phone: [facility] 03-19-2023 10:22-0500 SaO2% (BldA) [Mass fraction] 98 % Antoinette Alicea HOME PERFORMANCE LABORER.ROUGHENER Work Phone: [facility] 03-19-2023 10:22-0500 Systolic blood pressure 108 mm[Hg] Antoinette Alicea APRN.ROUGHENER Work Phone: [facility] 02-07-2023 10:00-0400 Body height 172.7 cm Rey José Luis PA-C Work Phone: [facility] 02-07-2023 10:00-0400 Body temperature 97.59 [degF] Rey José Luis PA-C Work Phone: [facility] 02-07-2023 10:00-0400 Body weight 91.08 kg Rey José Luis PA-C Work Phone: [facility] 02-07-2023 10:00-0400 Diastolic blood pressure 72 mm[Hg] Rey [place] PA-C Work Phone: [facility] 02-07-2023 10:00-0400 Heart rate 79 /min Rey José Luis PA-C Work Phone: [facility] 02-07-2023 10:00-0400 SaO2% (BldA) [Mass fraction] 97 % Rey [place] PA-C Work Phone: [facility] 02-07-2023 10:00-0400 Systolic blood pressure 128 mm[Hg] Rey [place] PA-C Work Phone: [facility] 01-31-2023 10:58-0400 Body height 172.72 cm [facility] 01-31-2023 10:58-0400 Body weight 90.26 kg [facility] 01-15-2023 15:40-0400 Body height 172.7 cm Fernanda Dimas HOME PERFORMANCE LABORER.ROUGHENER Work Phone: [facility] 01-15-2023 15:40-0400 Body weight 90.27 kg Fernanda Dimas HOME PERFORMANCE LABORER.ROUGHENER Work Phone: [facility] 01-15-2023 15:40-0400 Diastolic blood pressure 60 mm[Hg] Fernanda Dimas HOME PERFORMANCE LABORER.ROUGHENER Work Phone: [facility] 01-15-2023 15:40-0400 Heart rate 78 /min Fernanda Dimas HOME PERFORMANCE LABORER.ROUGHENER Work Phone: [facility] 01-15-2023 15:40-0400 SaO2% (BldA) [Mass fraction] 98 % Fernanda Dimas HOME PERFORMANCE LABORER.ROUGHENER Work Phone: [facility] 01-15-2023 15:40-0400 Systolic blood pressure 100 mm[Hg] Fernanda Dimas HOME PERFORMANCE LABORER.ROUGHENER Work Phone: [facility] 01-04-2023 07:57-0400 Body height 172.7 cm Sunshine Banuelos HOME PERFORMANCE LABORER.ROUGHENER Work Phone: [facility] 01-04-2023 07:57-0400 Body weight 91.35 kg Sunshine Cain HOME PERFORMANCE LABORER.ROUGHENER Work Phone: [facility] 01-04-2023 07:57-0400 Diastolic blood pressure 80 mm[Hg] Sunshine Kupiec HOME PERFORMANCE LABORER.ROUGHENER Work Phone: [facility] 01-04-2023 07:57-0400 Heart rate 75 /min Sunshine Kupiec HOME PERFORMANCE LABORER.ROUGHENER Work Phone: [facility] 01-04-2023 07:57-0400 Respiratory rate 16 /min [facility].ROUGHENER Work Phone: [facility] 01-04-2023 07:57-0400 SaO2% (BldA) [Mass fraction] 98 % Sunshine Banuelos HOME PERFORMANCE LABORER.ROUGHENER Work Phone: [facility] 01-04-2023 07:57-0400 Systolic blood pressure 132 mm[Hg] Sunshine Banuelos HOME PERFORMANCE LABORER.ROUGHENER Work Phone: [facility] 12-29-2022 08:09-0400 Body weight 90.71 kg [facility] 11-29-2022 11:42-0400 Body height 172.72 cm [facility] 11-29-2022 11:42-0400 Body weight 90.71 kg [facility] 10-02-2022 09:19-0400 Body height 172.72 cm [facility] 10-02-2022 09:19-0400 Body weight 90.71 kg [facility] 10-02-2022 08:50-0400 Body mass index (BMI) [Ratio] 30.4 kg/m2 [facility] 10-02-2022 08:50-0400 Body temperature 97 [degF] [facility] 10-02-2022 08:50-0400 Diastolic blood pressure 74 mm[Hg] [facility] 10-02-2022 08:50-0400 Heart rate 72 /min [facility] 10-02-2022 08:50-0400 Respiratory rate 14 /min [facility] 10-02-2022 08:50-0400 SaO2% (BldA) [Mass fraction] 99 % [facility] 10-02-2022 08:50-0400 Systolic blood pressure 136 mm[Hg] [facility] 08-28-2022 08:04-0400 Body height 172.7 cm Nanci Hernandez HOME PERFORMANCE LABORER.ROUGHENER Work Phone: [facility] 08-28-2022 08:04-0400 Body weight 91.13 kg Nanci Hernandez HOME PERFORMANCE LABORER.ROUGHENER Work Phone: [facility] 08-28-2022 08:04-0400 Diastolic blood pressure 72 mm[Hg] Nanci Hernandez HOME PERFORMANCE LABORER.ROUGHENER Work Phone: [facility] 08-28-2022 08:04-0400 Heart rate 80 /min Nanci Hernandez HOME PERFORMANCE LABORER.ROUGHENER Work Phone: [facility] 08-28-2022 08:04-0400 SaO2% (BldA) [Mass fraction] 98 % Nanci Hernandez HOME PERFORMANCE LABORER.ROUGHENER Work Phone: [facility] 08-28-2022 08:04-0400 Systolic blood pressure 128 mm[Hg] Nanci Hernandez HOME PERFORMANCE LABORER.ROUGHENER Work Phone: [facility] 07-07-2022 08:24-0400 Body height 172.7 cm Sunshine Cain HOME PERFORMANCE LABORER.ROUGHENER Work Phone: [facility] 07-07-2022 08:24-0400 Body weight 92.17 kg Sunshine Cainc HOME PERFORMANCE LABORER.ROUGHENER Work Phone: [facility] 07-07-2022 08:24-0400 Diastolic blood pressure 77 mm[Hg] Sunshine Ghoshiec HOME PERFORMANCE LABORER.ROUGHENER Work Phone: [facility] 07-07-2022 08:24-0400 Heart rate 79 /min Sunshine Ghoshiec HOME PERFORMANCE LABORER.ROUGHENER Work Phone: [facility] 07-07-2022 08:24-0400 SaO2% (BldA) [Mass fraction] 98 % Sunshine Ghoshiec HOME PERFORMANCE LABORER.ROUGHENER Work Phone: [facility] 07-07-2022 08:24-0400 Systolic blood pressure 136 mm[Hg] Sunshine Ghoshiec HOME PERFORMANCE LABORER.ROUGHENER Work Phone: [facility] 07-03-2022 14:23-0400 Body temperature 98.01 [degF] Rimma Varela APRN.C CARDIOLOGY PHYSICIAN ASSISTANT Work Phone: [facility] 07-03-2022 14:23-0400 Body weight 91.26 kg Rimma Varela HOME PERFORMANCE LABORER.C CARDIOLOGY PHYSICIAN ASSISTANT Work Phone: [facility] 07-03-2022 14:23-0400 Diastolic blood pressure 76 mm[Hg] Rimma Varela APRN.ROUGHENER Work Phone: [facility] 07-03-2022 14:23-0400 Heart rate 84 /min Rimma Varela APRN.C CARDIOLOGY PHYSICIAN ASSISTANT Work Phone: [facility] 07-03-2022 14:23-0400 Respiratory rate 16 /min Rimma Varela APRN.C CARDIOLOGY PHYSICIAN ASSISTANT Work Phone: [facility] 07-03-2022 14:23-0400 SaO2% (BldA) [Mass fraction] 97 % Rimma Varela APRN.ROUGHENER Work Phone: [facility] 07-03-2022 14:23-0400 Systolic blood pressure 121 mm[Hg] Rimma Varela APRN.ROUGHENER Work Phone: [facility] 06-29-2022 09:05-0500 Body height 172.7 cm Burke Barron DO Work Phone: [facility] 06-29-2022 09:05-0500 Body weight 90.72 kg Burke Barron DO Work Phone: [facility] 06-29-2022 09:05-0500 Diastolic blood pressure 74 mm[Hg] Burke Barron DO Work Phone: [facility] 06-29-2022 09:05-0500 Heart rate 72 /min Burke Barron DO Work Phone: [facility] 06-29-2022 09:05-0500 SaO2% (BldA) [Mass fraction] 99 % Burke Barron DO Work Phone: [facility] 06-29-2022 09:05-0500 Systolic blood pressure 136 mm[Hg] Burke Arian DO Work Phone: [facility] 05-17-2022 07:44-0500 Body temperature 97.9 [degF] Denis Rivero MD Work Phone: [facility] 05-17-2022 07:44-0500 Body weight 95.03 kg Denis Rivero MD Work Phone: [facility] 05-17-2022 07:44-0500 Diastolic blood pressure 75 mm[Hg] Denis Rivero MD Work Phone: [facility] 05-17-2022 07:44-0500 Heart rate 78 /min Denis Rivero MD Work Phone: [facility] 05-17-2022 07:44-0500 Respiratory rate 16 /min Denis Rivero MD Work Phone: [facility] 05-17-2022 07:44-0500 SaO2% (BldA) [Mass fraction] 97 % Denis Rivero MD Work Phone: [facility] 05-17-2022 07:44-0500 Systolic blood pressure 135 mm[Hg] Denis Rivero MD Work Phone: [facility] 03-13-2022 09:35-0500 Diastolic blood pressure 72 mm[Hg] Hany Garcia formerly [facility] Work Phone: [facility] 03-13-2022 09:35-0500 Heart rate 80 /min Hany Garcia formerly [facility] Work Phone: [facility] 03-13-2022 09:35-0500 Systolic blood pressure 132 mm[Hg] Hany Garcia formerly [facility] Work Phone: [facility] 12-16-2021 10:15-0400 Body height 172.7 cm Burkeazeb Barron DO Work Phone: [facility] 12-16-2021 10:15-0400 Body weight 91.17 kg Burke Barron DO Work Phone: [facility] 12-16-2021 10:15-0400 Diastolic blood pressure 70 mm[Hg] Burke Barron DO Work Phone: [facility] 12-16-2021 10:15-0400 Heart rate 68 /min Burke Barron DO Work Phone: [facility] 12-16-2021 10:15-0400 SaO2% (BldA) [Mass fraction] 98 % Burke Barron DO Work Phone: [facility] 12-16-2021 10:15-0400 Systolic blood pressure 106 mm[Hg] Burke Barron DO Work Phone: [facility] 12-13-2021 08:33-0400 Diastolic blood pressure 78 mm[Hg] Sunshine Kupie HOME PERFORMANCE LABORER.ROUGHENER Work Phone: [facility] 12-13-2021 08:33-0400 Systolic blood pressure 120 mm[Hg] [facility] HOME PERFORMANCE LABORER.ROUGHENER Work Phone: [facility] 12-13-2021 08:01-0400 Body height 172.[facility].ROUGHENER Work Phone: [facility] 12-13-2021 08:01-0400 Body weight 92.99 kg [facility] HOME PERFORMANCE LABORER.ROUGHENER Work Phone: [facility] 12-13-2021 08:01-0400 Heart rate 78 /min [facility] HOME PERFORMANCE LABORER.ROUGHENER Work Phone: [facility] 12-13-2021 08:01-0400 SaO2% (BldA) [Mass fraction] 98 % [facility]MANCE [facility].ROUGHENER Work Phone: [facility] 11-14-2021 13:12-0400 Diastolic blood pressure 64 mm[Hg] Denis Rivero MD Work Phone: [facility] 11-14-2021 13:12-0400 Systolic blood pressure 118 mm[Hg] Denis Rivero MD Work Phone: [facility] 11-14-2021 12:50-0400 Body height 172.7 cm Denis Rivero MD Work Phone: [facility] 11-14-2021 12:50-0400 Body temperature 98.71 [degF] Denis Rivero MD Work Phone: [facility] 11-14-2021 12:50-0400 Body weight 91.67 kg Denis Rivero MD Work Phone: [facility] 11-14-2021 12:50-0400 Heart rate 90 /min Denis Rivero MD Work Phone: [facility] 11-14-2021 12:50-0400 Respiratory rate 18 /min Denis Rivero MD Work Phone: [facility] 11-14-2021 12:50-0400 SaO2% (BldA) [Mass fraction] 97 % Denis Rivero MD Work Phone: [facility] 07-26-2021 09:23-0400 Diastolic blood pressure 71 mm[Hg] Hany Garcia formerly [facility] Work Phone: [facility] 07-26-2021 09:23-0400 Heart rate 75 /min Hany Garcia formerly [facility] Work Phone: [facility] 07-26-2021 09:23-0400 Systolic blood pressure 136 mm[Hg] Hany Garcia formerly [facility] Work Phone: [facility] Encounters Encounter Date Encounter Type Care Provider Facility Start: 01-06-2025 End: 01-06-2025 Follow-up encounter Ophelia Null formerly [facility] Work Phone: [facility] Start: 01-06-2025 End: 01-06-2025 Patient encounter procedure Ophelia Sesayo formerly [facility] Work Phone: [facility] Comment on above: Type 2 diabetes leticia itus without complication, with long-term current use of insulin (HCC) (Primary Dx) Start: 01-06-2025 End: 01-06-2025 ambulatory DENIS RIVERO Facility:[facility] Start: 01-05-2025 End: 01-05-2025 ambulatory DENIS RIVERO Facility:[facility] Start: 12-10-2024 End: 12-10-2024 ambulatory DENIS RIVERO Facility:[facility] Start: 12-10-2024 End: 12-10-2024 Patient encounter procedure Denis Rivero MD Work Phone: [facility] Comment on above: Encounter for Medica re annual wellness exam (Primary Dx); Type 2 diabetes mellitus with both eyes affected 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, with long-term current use of insulin (HCC); Essential hypertension; Mixed hyperlipidemia; Coronary artery disease involving [place] coronary artery of [place] heart without angina pectoris; Nonrheumatic aortic (valve) stenosis; S/P AVR; HOCM (hypertrophic obstructive cardiomyopathy) (HCC); S/P myomectomy; Benign prostatic hyperplasia with lower urinary tract symptoms, symptom details unspecified; Elevated PSA; Screening for depression; Encounter for screening examination for other mental health and behavioral disorders Start: 10-29-2024 End: 10-29-2024 Telephone encounter Denis Rivero MD Work Phone: [facility] Comment on above: outside notes (Eye e xam) Start: 10-23-2024 End: 10-23-2024 Telephone encounter Ophelia Null formerly [facility] Work Phone: [facility] Comment on above: Refill Request Start: 10-21-2024 End: 10-21-2024 Patient encounter procedure Ophelia Null formerly [facility] Work Phone: [facility] Comment on above: Type 2 diabetes leticia itus without complication, with long-term current use of insulin (HCC) (Primary Dx); Primary hypertension Start: 10-21-2024 End: 10-21-2024 ambulatory DENIS RIVERO Facility:[facility] Start: 10-08-2024 End: 10-08-2024 Patient encounter procedure Jun Goncalves MD Work Phone: Urology Comment on above: Elevated PSA (Primar y Dx); Benign prostatic hyperplasia with incomplete bladder emptying; Screening for genitourinary condition Start: 10-08-2024 End: 10-08-2024 ambulatory JUN GONCALVES Facility:[facility] Start: 10-08-2024 End: 10-08-2024 Follow-up encounter Ophelia Null formerly [facility] Work Phone: [facility] Start: 10-07-2024 End: 10-07-2024 ambulatory RYANN MONTIEL Facility:[facility] Start: 09-16-2024 End: 09-16-2024 Patient encounter procedure Ophelia Vasquezderrell formerly [facility] Work Phone: [facility] Comment on above: Type 2 diabetes leticia itus without complication, with long-term current use of insulin (HCC) (Primary Dx) Start: 09-16-2024 End: 09-16-2024 ambulatory DENIS RIVERO Facility:[facility] Start: 08-28-2024 End: 08-28-2024 Patient encounter procedure Antoinette Alicea APRN.[facility] Work Phone: Cardiology Comment on above: Essential hypertensi on (Primary Dx); Mixed hyperlipidemia; Nonrheumatic aortic (valve) stenosis; Coronary artery disease involving [place] coronary artery of [place] heart without angina pectoris; HOCM (hypertrophic obstructive cardiomyopathy) (HCC) Start: 08-28-2024 End: 08-28-2024 ambulatory ANTOINETTE ALICEA Facility:[facility] Start: 08-26-2024 End: 08-26-2024 ambulatory Diann Dotson RN [employer] [facility] Start: 08-26-2024 End: 08-26-2024 Patient encounter procedure Diann Dotson RN [facility] Start: 07-24-2024 End: 07-24-2024 Telephone encounter Denis Rivero MD Work Phone: [facility] Comment on above: ICD-10 codes for Rx (Test strips/ lancets) Start: 07-23-2024 End: 07-24-2024 Refill Denis Rivero MD Work Phone: [facility] Comment on above: Med Change Request Start: 07-23-2024 End: 07-23-2024 Telephone encounter Ophelia Null formerly [facility] Work Phone: [facility] Comment on above: Medication Update (D excom G7 - [facility]) Start: 07-22-2024 End: 07-22-2024 ambulatory DENIS RIVERO Facility:[facility] Start: 07-22-2024 End: 07-22-2024 Patient encounter procedure Ophelia Umanajimy formerly [facility] Work Phone: [facility] Comment on above: Type 2 diabetes leticia itus without complication, with long-term current use of insulin (HCC) (Primary Dx) Start: 07-21-2024 End: 07-21-2024 ambulatory DENIS VÍCTORFABIAN Facility:[facility] Start: 07-21-2024 End: 07-21-2024 Patient encounter procedure Ryann Sofia HONEYCUTT.ROUGHENER, DNP Work Phone: Urology Comment on above: Benign prostatic hyp erplasia with incomplete bladder emptying (Primary Dx); Elevated PSA Start: 06-27-2024 End: 06-27-2024 Telephone encounter Ophelia Null formerly [facility] Work Phone: [facility] Comment on above: Medication Problem ( Dexcom G7) Start: 06-24-2024 End: 06-24-2024 ambulatory MARJORIE LEE Facility:[facility] Start: 06-24-2024 End: 06-24-2024 Subsequent hospital visit by physician Marjorie Lee MD Work Phone: Ambulatory Surgery Comment on above: Screening for colon cancer [Z12.11] Start: 06-17-2024 End: 06-17-2024 Telephone encounter Denis Rivero MD Work Phone: [facility] Comment on above: Results (Blood work ) Medication Update (D excom G7) Start: 06-17-2024 End: 06-17-2024 ambulatory DENIS RIVERO Facility:[facility] Start: 06-17-2024 End: 06-17-2024 Patient encounter procedure Opheliacamille Null formerly [facility] Work Phone: [facility] Comment on above: Type 2 diabetes leticia itus without complication, with long-term current use of insulin (HCC) (Primary Dx) Start: 06-16-2024 End: 06-16-2024 Telephone encounter Denis Rivero MD Work Phone: [facility] [place] Comment on above: Patient Question Start: 06-16-2024 End: 06-16-2024 ambulatory DENIS RIVERO Facility:[facility] Start: 06-09-2024 End: 06-09-2024 Telephone encounter Ophelia Null formerly [facility] Work Phone: [facility] Comment on above: Medication Update Start: 06-05-2024 End: 06-05-2024 ambulatory DENIS RIVERO Facility:[facility] Start: 06-05-2024 End: 06-05-2024 Office outpatient visit 25 minutes Denis Rivero MD Work Phone: [facility] Comment on above: 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, with long-term current use of insulin (HCC) (Primary Dx); Screening for colon cancer; Positive colorectal cancer screening using Cologuard test; Essential hypertension; Mixed hyperlipidemia; HOCM (hypertrophic obstructive cardiomyopathy) ([facility]); Coronary artery disease involving [place] coronary artery of [place] heart without angina pectoris; Status post insertion of drug eluting coronary artery stent; S/P myomectomy; S/P AVR; Screening for prostate cancer; Benign prostatic hyperplasia with lower urinary tract symptoms, symptom details unspecified Start: 05-28-2024 End: 05-28-2024 Telephone encounter Ophelia Null formerly [facility] Work Phone: [facility] Comment on above: Refill Request Start: 05-26-2024 End: 05-26-2024 Refill Denis Rivero MD Work Phone: [facility] Comment on above: Refill Request Start: 05-23-2024 End: 05-23-2024 Telephone encounter Denis Rivero MD Work Phone: [facility] Comment on above: Opened In Error Start: 05-16-2024 End: 05-16-2024 Telephone encounter Ophelia Null formerly [facility] Work Phone: [facility] Comment on above: Refill Request Start: 04-29-2024 End: 04-29-2024 ambulatory DENIS RIVERO Facility:[facility] Start: 04-29-2024 End: 04-29-2024 Patient encounter procedure Ophelia Sesayo formerly [facility] Work Phone: [facility] Comment on above: Type 2 diabetes leticia itus without complication, with long-term current use of insulin (HCC) (Primary Dx) Start: 04-08-2024 End: 04-08-2024 Refill Denis Rivero MD Work Phone: [facility] Comment on above: Refill Request Start: 04-06-2024 End: 04-07-2024 Refill Rimma Varela APRN.[employer]ENER Work Phone: [facility] Comment on above: Refill Request Start: 04-04-2024 End: 04-04-2024 Telephone encounter Ophelia Null formerly [facility] Work Phone: [facility] Comment on above: Medication Update Start: 03-04-2024 End: 03-04-2024 Telephone encounter Opheliacamille Null formerly [facility] Work Phone: [facility] Comment on above: Medication Update (M dennis) Start: 03-04-2024 End: 03-04-2024 ambulatory DENIS RIVERO Facility:[facility] Start: 03-04-2024 End: 03-04-2024 Patient encounter procedure Opheliaalexus Null formerly [facility] Work Phone: [facility] Comment on above: Type 2 diabetes leticia itus without complication, with long-term current use of insulin (HCC) (Primary Dx) Start: 02-28-2024 End: 02-28-2024 ambulatory ANTOINETTE ALICEA Facility:[facility] Start: 02-28-2024 End: 02-28-2024 Patient encounter procedure Antoinette Alicea APRN.[employer] Work Phone: Cardiology Comment on above: Essential hypertensi on (Primary Dx); Mixed hyperlipidemia; Status post insertion of drug eluting coronary artery stent; S/P AVR Start: 02-21-2024 End: 02-21-2024 ambulatory Diann Dotson RN CL[facility]ICAL INVEST [facility] T Start: 02-21-2024 End: 02-21-2024 Patient encounter procedure Diann Dotson RN CLINICAL INVEST UNIT Start: 02-04-2024 End: 02-05-2024 Refill Burke Jose Barron DO Work Phone: [facility] Comment on above: Refill Request Start: 02-01-2024 End: 02-01-2024 Telephone encounter Burke Jose Barron DO Work Phone: Cardiology Comment on above: Received Outside Med ical Records (EKG) Start: 02-01-2024 ambulatory [facility] Facility:[facility] Start: 01-24-2024 End: 01-24-2024 Telephone encounter Ophelia Null formerly [facility] Work Phone: [facility] Comment on above: Results (A1c and BMP ) Start: 01-23-2024 End: 01-23-2024 Subsequent hospital visit by physician Card/Pulm Lab [facility] CARDIO PULMONARY TESTING Comment on above: SOB (shortness of br eath) [R06.02] Start: 01-23-2024 End: 01-23-2024 ambulatory DENIS RIVERO Facility:[facility] Start: 01-11-2024 End: 01-21-2024 ambulatory [facility] Facility:[facility] Start: 01-01-2024 End: 01-01-2024 [facility] Comment on above: Hypertension, unspec ified type (Primary Dx); Type 2 diabetes mellitus without complication, with long-term current use of insulin (HCC) Start: 12-28-2023 ambulatory UNKNOWN PROVIDER Facili ty:[facility] Start: 12-28-2023 End: 12-28-2023 Subsequent hospital visit by physician [facility] (1.5t) Radiology Comment on above: Thunderclap headache [G44.53] Start: 12-27-2023 End: 12-27-2023 Patient encounter procedure Antoinette Alicea APRN.ROUGHENER Work Phone: Cardiology Comment on above: Episodic cluster hea dache, not intractable (Primary Dx); SOB (shortness of breath); Essential hypertension; Coronary artery disease involving [place] coronary artery of [place] heart without angina pectoris; HOCM (hypertrophic obstructive cardiomyopathy) (HCC); S/P AVR; Primary hypertension Start: 12-21-2023 End: 12-22-2023 ambulatory NAREN RODRIGUEZ Facility:[facility] Start: 12-19-2023 ambulatory UNKNOWN PROVIDER Facili ty:[facility] Start: 12-19-2023 End: 12-19-2023 Subsequent hospital visit by physician [facility] (1.5t) Radiology Comment on above: Thunderclap headache [G44.53] Start: 12-15-2023 End: 12-15-2023 ambulatory David Mueller Facility:[facility] Start: 12-13-2023 End: 12-14-2023 Telephone encounter Ca Peterson PA-C Work Phone: Neurology Start: 12-12-2023 End: 12-12-2023 Refill Denis Rivero MD Work Phone: [facility] Comment on above: Refill Request Start: 12-12-2023 End: 12-27-2023 Telephone encounter Burke Barron DO Work Phone: Cardiology Comment on above: Patient Update ([facility] Cardiac Rehab) Patient Update Start: 12-06-2023 End: 12-06-2023 Office outpatient visit 25 minutes Denis Rivero MD Work Phone: [facility] Comment on above: 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, with long-term current use of insulin (HCC) (Primary Dx); Essential hypertension; Mixed hyperlipidemia; Coronary artery disease involving [place] coronary artery of [place] heart without angina pectoris; HOCM (hypertrophic obstructive cardiomyopathy) (HCC); S/P AVR; Nonrheumatic aortic (valve) stenosis; Intractable episodic cluster headache; Screening for depression; Encounter for screening examination for other mental health and behavioral disorders Start: 12-05-2023 Telephone encounter Burke Barron DO Work Phone: Cardiology Comment on above: Medication Question (Starting new BP medication) Start: 12-04-2023 Telephone encounter Ophelia Null formerly [facility] Work Phone: [facility] Comment on above: Results Oxygen Start: 11-30-2023 End: 11-30-2023 Patient encounter procedure Ca Peterson DAVID Work Phone: Neurology Comment on above: Thunderclap headache (Primary Dx); Intractable episodic cluster headache Start: 11-30-2023 ambulatory Ca Moses nani HERNANDEZ Work Phone: Neurology Comment on above: Laboratory studies Start: 11-30-2023 E-mail encounter fro m caregiver Ca Guillendixie HERNANDEZ Work Phone: Neurology Start: 11-21-2023 End: 11-21-2023 ambulatory ANREN RODRIGUEZ Facility:[facility] Start: 11-20-2023 ambulatory Denis colin MD Work Phone: Internal Medicine [place] [phone] Start: 11-20-2023 End: 11-20-2023 [facility] Comment on above: Primary hypertension (Primary Dx); Nonrheumatic aortic (valve) stenosis; HOCM (hypertrophic obstructive cardiomyopathy) ([facility]) Start: 11-19-2023 ambulatory Miley Oglesby RN CLINICA L INVEST UNIT Start: 11-19-2023 Patient encounter procedure Miley Oglesby RN CLINICAL INVEST UNIT Start: 11-18-2023 End: 11-18-2023 Emergency department patient visit DENIS RIVERO Facility:[facility] Start: 2023 Telephone encounter Ophelia Pedrosanjuanitadilciathania formerly [facility] Work Phone: [facility] Comment on above: Returning Patient's Call Start: 11-04-2023 Refill Gisel floyd APRN.ROUGHENER Work Phone: [facility] Comment on above: Refill Request Start: 10-30-2023 Refill Denis colin MD Work Phone: [facility] Comment on above: Med Change Request Start: 10-30-2023 End: 10-30-2023 Patient encounter procedure Ophelia Null formerly [facility] Work Phone: [facility] Comment on above: Type 2 diabetes leticia itus without complication, with long-term current use of insulin (HCC) (Primary Dx); Primary hypertension Start: 10-22-2023 Telephone encounter Denis cabrera MD Work Phone: [facility] Comment on above: Orders ([facility] re: Orders (10/22/23)) Start: 10-19-2023 End: 10-21-2023 ambulatory [facility] Facility:[facility] Start: 10-12-2023 End: 10-12-2023 ambulatory [facility] Facility:[facility] Start: 10-08-2023 Telephone encounter Ophelia Null formerly [facility] Work Phone: [facility] Comment on above: Returning Patient's Call Start: 09-25-2023 ambulatory Miley Oglesby RN [facility]ICA L IN[facility]ST [facility] Start: 09-25-2023 Patient encounter procedure Miley Oglesby RN CLINICAL INVEST UNIT Start: 09-20-2023 Refill Denis colin MD Work Phone: [facility] Comment on above: Refill Request Start: 09-20-2023 Telephone encounter Denis cabrera MD Work Phone: [facility] Comment on above: Orders ([facility] re: POC (09/20/23)) Start: 09-18-2023 End: 09-18-2023 Patient encounter procedure Burke Barron Work Phone: Cardiology Comment on above: HOCM (hypertrophic o bstructive cardiomyopathy) (HCC) (Primary Dx); S/P myomectomy; S/P AVR; Nonrheumatic aortic (valve) stenosis; Coronary artery disease involving [place] coronary artery of [place] heart without angina pectoris; Primary hypertension; Mixed hyperlipidemia; Status post insertion of drug eluting coronary artery stent Start: 09-18-2023 End: 09-18-2023 ambulatory UNKNOWN PROVIDER Facility:[facility] Start: 09-11-2023 Telephone encounter Denis cabrera MD Work Phone: [facility] Comment on above: Forms ([facility] re: d/c summary (09/11/23)) Start: 09-04-2023 End: 09-04-2023 Patient encounter procedure Ophelia Null formerly [facility] Work Phone: [facility] Comment on above: Type 2 diabetes leticia itus without complication, with long-term current use of insulin (HCC) (Primary Dx); Type 2 diabetes mellitus with both eyes affected 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, with long-term current use of insulin (HCC) Refill Request Start: 09-04-2023 End: 09-04-2023 Office outpatient visit 25 minutes Rimma Varela APRN.CNP Work Phone: [facility] Comment on above: Nonrheumatic aortic (valve) stenosis (Primary Dx); S/P aortic valve replacement; Coronary artery disease involving [place] coronary artery of [place] heart without angina pectoris; Stable angina (HCC); HOCM (hypertrophic obstructive cardiomyopathy) (HCC); Type 2 diabetes mellitus without complication, with long-term current use of insulin (HCC); Type 2 diabetes mellitus with both eyes affected 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, with long-term current use of insulin (HCC) Start: 09-03-2023 Telephone encounter Ho Conteh [facility] Department Comment on above: PostOp Follow-up Orders Start: 08-31-2023 Telephone encounter Burke Barron DO Work Phone: Cardiology Comment on above: Chest Pain Start: 08-27-2023 Telephone encounter Hany Amos [facility] Comment on above: Post Dc Program Call - Needs Attn (Worsening pain requesting a change in medication) Start: 08-23-2023 Telephone encounter Hany Amos [facility] Comment on above: Follow Up Phone Call ([facility] follow up call all clear. /) Start: 08-22-2023 Telephone encounter Ho Conteh [facility] Department Comment on above: PostOp Follow-up Start: 08-15-2023 ambulatory Robert umana MD Work Phone: Cardiothoracic Comment on above: Patient Education Start: 08-15-2023 End: 08-15-2023 Admission to same day surgery center Anesthesia Clearance Work Phone: [facility] Work Phone: Start: 08-15-2023 End: 08-15-2023 Patient encounter procedure [facility] Work Phone: Cardiothoracic Comment on above: Pre-op testing (Prim renata Dx) Encounter for preope rative anesthesiology assessment for cardiac surgery (Primary Dx); Type 2 diabetes mellitus with both eyes affected 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, with long-term current use of insulin (HCC) Nonrheumatic aortic valve stenosis (Primary Dx); Type 2 diabetes mellitus with both eyes affected 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, with long-term current use of insulin (HCC) HOCM (hypertrophic o bstructive cardiomyopathy) (FORMERLY [facility]); Aortic valve stenosis, etiology of cardiac valve disease unspecified; Hyperlipidemia, unspecified hyperlipidemia type; Hypertension, unspecified type; Controlled type 2 diabetes mellitus without complication, unspecified whether half-way insulin use (HCC); SOB (shortness of breath); Chest pain, unspecified type; Pre-operative cardiovascular examination Start: 08-15-2023 End: 08-15-2023 Patient encounter status Robert Ferrer MD Work Phone: [facility] Start: 08-15-2023 End: 08-15-2023 Subsequent hospital visit by physician Xr Chest [facility] Work Phone: Radiology Comment on above: HOCM (hypertrophic o bstructive cardiomyopathy) (HCC) [I42.1] Start: 08-14-2023 ambulatory Diann Dotson RN [facility] Start: 08-14-2023 Patient encounter status Diann storey RN [facility] Start: 08-06-2023 Refill Nanci Trujillo HOME PERFORMANCE LABORERNadiaROUGHENER Work Phone: Cardiology Comment on above: Refill Request Start: 07-16-2023 End: 07-16-2023 Patient encounter procedure Burke Jose Barron DO Work Phone: Cardiology Comment on above: HOCM (hypertrophic o bstructive cardiomyopathy) (HCC) (Primary Dx); Nonrheumatic aortic (valve) stenosis; Coronary artery disease of [place] artery of [place] heart with stable angina pectoris (HCC); Primary hypertension; Mixed hyperlipidemia Start: 07-16-2023 End: 07-17-2023 ambulatory UNKNOWN PROVIDER Facility:[facility] Start: 07-10-2023 Patient encounter status Prabhjot Ferrer MD Work Phone: [facility] Start: 07-10-2023 Telephone encounter Robert Ferrer MD Work Phone: Cardiothoracic Comment on above: Referral Information ; Schedule Surgery (Pre op checklist ) Insurance Authorizat ion Start: 07-09-2023 Telephone encounter Gisel Wallace APRN.ROUGHENER Work Phone: [facility] Cardiology [place] Comment on above: Guide Changer - O ther Start: 07-05-2023 Refill Oleksandr Boykin MD Work Phone: [facility] Cardiology [place] Comment on above: Refill Request Start: 07-01-2023 Refill Denis colin MD Work Phone: [facility] Comment on above: Refill Request Start: 06-27-2023 End: 06-27-2023 Subsequent hospital visit by physician Mri [facility] (1.5t/Lg Bore 70cm) Work Phone: [facility] Comment on above: Nonrheumatic aortic (valve) stenosis [I35.0] Start: 06-05-2023 Telephone encounter Ender Young RT (R) [facility] Comment on above: Other (Please pr otocol this Cardiac MRI) Start: 03-26-2023 Telephone encounter Gisel Wallace APRN.ROUGHENER Work Phone: [facility] Cardiology [place] Comment on above: Results Start: 03-21-2023 Patient encounter status Prabhjot Espinal APRN.ROUGHENER Work Phone: [facility] Work Phone: Start: 03-21-2023 Telephone encounter Gisel Wallace APRN.ROUGHENER Work Phone: [facility] Comment on above: Appointment Start: 03-19-2023 End: 03-19-2023 Patient encounter procedure Antoinette Alicea APRN.CNP Work Phone: Cardiology Comment on above: Primary hypertension (Primary Dx); Non-rheumatic aortic stenosis; Coronary artery disease involving [place] coronary artery of [place] heart without angina pectoris Start: 03-05-2023 End: 03-05-2023 Patient encounter procedure Ophelia Null formerly [facility] Work Phone: [facility] Comment on above: Type 2 diabetes leticia itus without complication, with long-term current use of insulin (HCC) (Primary Dx); Type 2 diabetes mellitus with both eyes affected 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, with long-term current use of insulin (HCC) Start: 03-03-2023 ambulatory [facility] Facility:[facility] Start: 02-09-2023 Telephone encounter Rey alvarez PA-C Work Phone: General Surgery Comment on above: 04-04-23 Colonoscopy [facility]; Cardiac Clearance Start: 02-07-2023 End: 02-07-2023 Patient encounter procedure Rey Orodnez PA-C Work Phone: General Surgery Comment on above: On continuous oral a nticoagulation (Primary Dx); Aortic valve stenosis, etiology of cardiac valve disease unspecified; Positive colorectal cancer screening using Cologuard test Start: 02-07-2023 End: 02-20-[address] [facility] Work Phone: Start: 02-07-2023 End: 02-20-2023 Discharged Recurring [facility] Work Phone: Start: 01-30-2023 Telephone encounter Durga Kraus MD Work Phone: General Surgery Comment on above: Patient Question Start: 01-29-2023 End: 01-29-2023 Patient encounter procedure Ophelia Null formerly [facility] Work Phone: [facility] Comment on above: Type 2 diabetes leticia itus without complication, with long-term current use of insulin (HCC) (Primary Dx); Type 2 diabetes mellitus with both eyes affected 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, with long-term current use of insulin (HCC); Medication management Start: 01-19-2023 End: 01-20-2023 Discharged Recurring [facility] Work Phone: Start: 01-15-2023 End: 01-15-2023 Office outpatient visit 25 minutes Fernanda Dimas APRN.ROUGHENER Work Phone: Cardiology Comment on above: Coronary artery dise ase involving [place] coronary artery of [place] heart without angina pectoris (Primary Dx); Nonrheumatic aortic valve stenosis; Diastolic dysfunction; Bradycardia; Essential hypertension; Mixed hyperlipidemia; History of tobacco use; Sleep apnea, unspecified type Start: 01-04-2023 End: 01-04-2023 Patient encounter procedure Sunshine Banuelos APRN.ROUGHENER Work Phone: Endocrinology Comment on above: 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 Work Phone: Start: 12-20-2022 End: 12-21-2022 Discharged Recurring [facility] Work Phone: Start: 11-20-2022 Telephone encounter Denis cabrera MD Work Phone: [facility] [place] Comment on above: Forms (Valente denny re: medical clearance (11/18/22)) Start: 11-20-2022 End: 11-20-[address] [facility] Work Phone: Start: 11-20-2022 End: 11-20-2022 Discharged Recurring [facility] Work Phone: Start: 11-17-2022 Telephone encounter Denis cabrera MD Work Phone: [facility] Comment on above: Received Outside Med ical Records ([facility] re: Diabetic Eye Exam (11/17/22)) Start: 10-09-2022 End: 10-20-[address] [facility] Work Phone: Start: 10-09-2022 End: 10-20-2022 Discharged Recurring [facility] Work Phone: Start: 10-06-2022 Registered Recurring [facility] Start: 10-02-2022 End: 10-02-[address] [facility] Work Phone: Start: 10-02-2022 End: 10-02-2022 Patient encounter procedure [facility] Start: 09-04-2022 End: 09-04-2022 Patient encounter procedure Hany Garcia formerly [facility] Work Phone: [facility] Comment on above: Type 2 diabetes leticia itus without complication, with long-term current use of insulin (HCC) (Primary Dx) Start: 09-01-2022 ambulatory Nanci Trujillo APRN.ROUGHENER Work Phone: Cardiology Comment on above: Cardiac Rehab Start: 09-01-2022 E-mail encounter fro m caregiver Nanci Hernandez APRN.ROUGHENER Work Phone: [facility] Start: 08-28-2022 End: 08-28-2022 Patient encounter procedure Nanci Hernandez APRN.ROUGHENER Work Phone: Cardiology Comment on above: Coronary artery dise ase involving [place] coronary artery of [place] heart without angina pectoris (Primary Dx); Essential hypertension; Status post insertion of drug eluting coronary artery stent; History of bradycardia; Mixed hyperlipidemia; Non-rheumatic aortic stenosis; History of tobacco use; Diastolic dysfunction; History of sleep apnea Start: 08-03-2022 Refill Denis colin MD Work Phone: [facility] Comment on above: Refill Request Start: 08-01-2022 ambulatory Hany Garcia [facility] Work Phone: [facility] Comment on above: Fenofibrate Start: 08-01-2022 E-mail encounter eliza hand caregiver Hany Garcia formerly [facility] Work Phone: [facility] Start: 07-31-2022 Telephone encounter Denis cabrera MD Work Phone: [facility] Comment on above: Insurance Authorizat ion Start: 07-21-2022 Telephone encounter Hany carroll formerly [facility] Work Phone: [facility] Comment on above: Patient Question (CG M order issue) Start: 07-11-2022 Telephone encounter Pavan Sanford RN Cardiology Comment on above: Results Start: 07-08-2022 Refill Denis colin MD Work Phone: [facility] Comment on above: Med Change Request Start: 07-07-2022 End: 07-07-2022 Patient encounter procedure Sunshine Banuelos HOME PERFORMANCE LABORER.ROUGHENER Work Phone: Endocrinology Comment on above: 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, with long-term current use of insulin (HCC) (Primary Dx); Essential hypertension; Obesity, Class I, BMI 30-34.9 Start: 07-06-2022 Telephone encounter Hany carroll formerly [facility] Work Phone: [facility] Comment on above: Patient Question Start: 07-06-2022 End: 07-06-2022 Subsequent hospital visit by physician [facility] Work Phone: Cardiology Lab Comment on above: Coronary artery dise ase involving [place] coronary artery of [place] heart without angina pectoris [I25.10] Start: 07-03-2022 End: 07-03-2022 Office outpatient visit 15 minutes Rimma Varela APRN.ROUGHENER Work Phone: [facility] Comment on above: Dog bite, initial en counter (Primary Dx); Type 2 diabetes mellitus with both eyes affected 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, with long-term current use of insulin (HCC) Start: 07-03-2022 End: 07-03-2022 Patient encounter procedure Hany Garcia formerly [facility] Work Phone: [facility] Comment on above: Type 2 diabetes leticia itus without complication, with long-term current use of insulin (HCC) (Primary Dx) Start: 06-29-2022 End: 06-29-2022 Patient encounter procedure Burke Barron DO Work Phone: Cardiology Comment on above: Coronary artery dise ase involving [place] coronary artery of [place] heart without angina pectoris (Primary Dx); HERNANDEZ (dyspnea on exertion); Essential hypertension; Mixed hyperlipidemia; Non-rheumatic aortic stenosis; AV block, 1st degree Start: 05-18-2022 Telephone encounter Hany carroll formerly [facility] Work Phone: [facility] Comment on above: Patient Question Start: 05-17-2022 ambulatory Denis colin MD Work Phone: [facility] Comment on above: Medication Problem Start: 05-17-2022 End: 05-17-2022 Patient encounter procedure Denis Rivero MD Work Phone: [facility] Comment on above: 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, with long-term current use of insulin (HCC) (Primary Dx); Coronary artery disease involving [place] coronary artery of [place] heart without angina pectoris; Primary hypertension; Mixed hyperlipidemia; DDD (degenerative disc disease), lumbar; Lumbar spondylosis; Obesity, Class I, BMI 30-34.9 Start: 05-05-2022 Refill Denis colin MD Work Phone: [facility] Comment on above: Refill Request Start: 05-02-2022 ambulatory Denis colin MD Work Phone: Internal Medicine [facility] [place] Start: 04-07-2022 Refill Denis colin MD Work Phone: [facility] Comment on above: Refill Request Start: 03-15-2022 Refill Sunshine denny APRN.CNP Work Phone: Endocrinology Comment on above: Refill Request Start: 03-13-2022 End: 03-13-2022 Patient encounter procedure Hany [employer] formerly [facility] Work Phone: [facility] Comment on above: Type 2 diabetes leticia itus without complication, with long-term current use of insulin (HCC) (Primary Dx); Essential hypertension Start: 03-06-2022 Telephone encounter Sunshine conrad HOME PERFORMANCE LABORER.ROUGHENER Work Phone: Endocrinology Comment on above: Results Start: 02-08-2022 Telephone encounter Nanci Hernandez HOME PERFORMANCE LABORER.ROUGHENER Work Phone: Cardiology Comment on above: Results ([employer]) Start: 01-14-2022 Refill Denis colin MD Work Phone: [facility] Comment on above: Refill Request Start: 01-03-2022 Telephone encounter Denis cabrera MD Work Phone: [facility] Comment on above: Eye Exam ([facility] (12/30/21)) Start: 01-02-2022 End: 01-02-2022 Subsequent hospital visit by physician [facility] Work Phone: Cardiology Lab Comment on above: Coronary artery dise ase involving [place] coronary artery of [place] heart without angina pectoris [I25.10] Start: 01-02-2022 End: 01-02-2022 Subsequent hospital visit by physician [facility] Work Phone: Molecular Imaging Comment on above: Coronary artery dise ase involving [place] coronary artery of [place] heart without angina pectoris [I25.10] Start: 12-29-2021 Refill Denis colin MD Work Phone: [facility] Comment on above: Refill Request Start: 12-19-2021 Telephone encounter Hany Ginette [facility]roll [facility] Health Work Phone: [facility] Comment on above: Medication Problem Start: 12-16-2021 End: 12-16-2021 Patient encounter procedure Burke Barron DO Work Phone: Cardiology Comment on above: Coronary artery dise ase involving [place] coronary artery of [place] heart without angina pectoris (Primary Dx); HERNANDEZ (dyspnea on exertion); Non-rheumatic aortic stenosis; Essential hypertension; Mixed hyperlipidemia Start: 12-13-2021 End: 12-13-2021 Patient encounter procedure Sunshine Banuelos ROUGHENER Work Phone: Endocrinology Comment on above: Type 2 diabetes leticia itus without complication, with long-term current use of insulin (HCC) (Primary Dx); Essential hypertension; Class 1 obesity with serious comorbidity and body mass index (BMI) of 31.0 to 31.9 in adult, unspecified obesity type Start: 12-12-2021 End: 12-12-2021 Patient encounter procedure Hany Garcia formerly [facility] Work Phone: [facility] Comment on above: Uncontrolled type 2 diabetes mellitus with hyperglycemia (HCC) (Primary Dx) Start: 12-02-2021 Telephone encounter Denis cabrera MD Work Phone: Family [facility] Comment on above: letter out Start: 11-14-2021 End: 11-14-2021 Patient encounter procedure Denis Rivero MD Work Phone: Family [facility] Comment on above: Medicare annual well ness visit, initial (Primary Dx); Type 2 diabetes mellitus without complication, with long-term current use of insulin (HCC); Coronary artery disease involving [place] coronary artery of [place] heart without angina pectoris; Primary hypertension; Mixed hyperlipidemia; Obesity, Class I, BMI 30-34.9; DDD (degenerative disc disease), lumbar; Lumbar radiculopathy; Other chronic pain; Benign prostatic hyperplasia with lower urinary tract symptoms, symptom details unspecified; Screening for colon cancer Start: 10-28-2021 Telephone encounter Hany carroll formerly [facility] Work Phone: [facility] Comment on above: Refill Request Start: 10-14-2021 Telephone encounter Brandee Bolton PA-C Work Phone: Family [facility] Comment on above: Orders Start: 07-26-2021 End: 07-26-2021 Patient encounter procedure Hany Garcia formerly [facility] Work Phone: [facility] Comment on above: Uncontrolled type 2 diabetes mellitus with hyperglycemia (HCC) (Primary Dx); Essential hypertension Start: 07-23-2021 Refill Lyric Harris APRN.ANNIE Work Phone: [employer] Operator Management Comment on above: Refill Request Start: 01-11-2017 Ambulatory Qarab Wali Vel Faci lity:[facility] Start: 01-08-2017 Ambulatory Nancy Saavedra Faci lity:[facility] Start: 01-02-2017 Ambulatory Qarab Wali Vel Faci lity:[facility] Procedures Date Procedure Procedure Detail Performing Clinician Start: 12-10-2024 Adult depression screening assessment Denis Rivero MD Work Phone: Start: 10-08-2024 Urnls dip stick/tablet rgnt auto w/o microscopy Jun Goncalves MD Work Phone: Start: 08-28-2024 Follow-up visit Follow Up ANTOINETTE ALICEA Start: 07-21-2024 Urnls dip stick/tablet rgnt auto w/o microscopy Ryann Montiel APRN.ROUGHENER, DNP Work Phone: Start: 06-24-2024 Colonoscopy flx dx w/collj spec when pfrmd Denis Rivero MD Work Phone: Start: 06-24-2024 Colonoscopy Marjorie Lee MD Work Phone: Start: 01-23-2024 Echo tthrc r-t 2d w/wom-mode compl spec&colr d Antoinette Alicea HOME PERFORMANCE LABORER.ANNIE Work Phone: Start: 12-28-2023 Mra neck w/o &w/contrast material Ca Peterson PA-C Work Phone: Start: 12-19-2023 Mri brain brain stem w/o contrast material Ca Peterson PA-C Work Phone: Start: 12-06-2023 Adult depression screening assessment Denis Rivero MD Work Phone: Start: 08-15-2023 Radiologic exam chest 2 views Robert Ferrer MD Work Phone: Start: 06-27-2023 Cardiac mri w/wo contrast & further seq Gisel Wallace HOME PERFORMANCE LABORER.ROUGHENER Work Phone: Start: 03-19-2023 Gluc bld gluc mntr dev cleared fda spec home use Antoinette Alicea HOME PERFORMANCE LABORER.ROUGHENER Work Phone: Start: 08-28-2022 History of placement of stent for coronary artery disease Status post insertion of drug eluting coronary artery stent Nanci Hernandez HOME PERFORMANCE LABORER.ROUGHENER Work Phone: Start: 08-28-2022 Ecg routine ecg w/least 12 lds i&r only [facility] Start: 07-06-2022 Echo tthrc r-t 2d w/wom-mode compl spec&colr d Burke Barron DO Work Phone: Start: 06-29-2022 Ecg routine ecg w/least 12 lds i&r only [facility] Provider Start: 01-02-2022 Myocardial spect multiple studies Burke Barron DO Work Phone: Start: 12-13-2021 Hemoglobin A1c/Hemoglobin.total in Blood Sunshine Banuelos HOME PERFORMANCE LABORER.ROUGHENER Work Phone: Start: 11-14-2021 Adult depression screening assessment Denis Rivero MD Work Phone: Start: 10-12-2020 Adult depression screening assessment Lyric Harris HOME PERFORMANCE LABORER.ROUGHENER Work Phone: History of placement of stent for coronary artery disease Status post insertion of drug eluting coronary artery stent Nanci Hernandez HOME PERFORMANCE LABORER.ROUGHENER Work Phone: History of placement of stent for coronary artery disease Status post insertion of drug eluting coronary artery stent Burke Barron DO Work Phone: History of placement of stent for coronary artery disease Status post insertion of drug eluting coronary artery stent Antoinette Alicea HOME PERFORMANCE LABORER.ROUGHENER Work Phone: History of placement of stent for coronary artery disease Status post insertion of drug eluting coronary artery stent Denis Rivero MD Work Phone: Plan of Treatment Date Care Activity Detail Author Start: 05-31-2032 Urine microalbumin profile [facility] Start: 06-24-2029 Screening for malignant neoplasm of colon [facility] Start: 08-24-2027 Urine microalbumin profile DTAP,TDAP,TD (2 - Td or Tdap) [facility] Start: 01-16-2026 Cologuard (FIT-DNA) Cologuard (FIT-DNA) [facility] Start: 01-16-2026 Colorectal Cancer Screening Colorectal Cancer Screening [facility] Start: 01-16-2026 Screening for malignant neoplasm of colon [facility] Start: 01-05-2026 Hepatitis B screening Urine Albumin:Creatinine Ratio [facility] Start: 01-05-2026 Hepatitis B surface antibody level LDL Cholesterol [facility] Start: 12-16-2025 End: 12-16-2025 Patient encounter procedure 12/16/2025 7:00 AM EDT Office Visit Family [facility] [place] [address] [address] Denis Rivero MD [address] [address] annual wellness [facility] Comment on above: annual wellness Start: 12-10-2025 Annual PCP Team Chronic Disease Visit Annual PCP Team Chronic Disease Visit [facility] Start: 12-10-2025 Anxiety Screening Anxiety Screening [facility] Start: 12-10-2025 Depression Screening Depression Screening [facility] Start: 12-10-2025 Medicare Annual Wellness Visit Medicare Annual Wellness Visit [facility] Start: 10-29-2025 Glaucoma screening Dilated Retinal Exam [facility] Start: 08-28-2025 BP Controlled (<130/80) BP Controlled (<130/80) [facility] Start: 07-05-2025 Hemoglobin A1c measurement HbA1C [facility] Start: 06-18-2025 End: 06-18-2025 Patient encounter procedure 06/18/2025 7:00 AM EST Office Visit [address] [phone] Denis Rivero MD [address] [address] Return in about 6 months (around 06/12/2025) for for check up . [facility] [place] Comment on above: Return in about 6 months (around 06/12/19 26) for for check up . Start: 06-05-2025 Annual PCP Team Chronic Disease Visit Annual PCP Team Chronic Disease Visit [facility] Start: 06-05-2025 Covid-19 Vaccine () Covid-19 Vaccine () [facility] Comment on above: Postponed from 12/23/2023 (Declined at t his time) Start: 05-28-2025 Diabetic foot examination Diabetic Foot Exam [facility] Start: 04-21-2025 PROSTATE CANCER SCREENING DISCUSSION PROSTATE CANCER SCREENING DISCUSSION [facility] Start: 04-21-2025 Prostate specific antigen measurement Prostate Cancer Screening Discussion [facility] Start: 04-08-2025 Hemoglobin A1c measurement HbA1C [facility] Start: 04-07-2025 End: 04-07-2025 Patient encounter procedure 04/07/2025 9:00 AM EST Office Visit [facility] [address] [phone] Ophelia Null, formerly [facility] [address] [place] [address] Dm f/up; CGM interpretation [facility] Comment on above: Dm f/up; CGM interpretation Start: 04-06-2025 End: 07-06-2025 Hemoglobin A1c in Blood HEMOGLOBIN A1C Lab Routine Type 2 diabetes mellitus without complication, with long-term current use of insulin (HCC) Expected: 04/06/2025, Expires: 07/06/2025 [facility] Work Phone: Comment on above: Expected: 04/06/2025, Expires: Start: 03-02-2025 End: 03-02-2025 Patient encounter procedure 03/02/2025 8:00 AM EST Office Visit Cardiology [address] [address] Antoinette Alicea APRN.ROUGHENER [address] [place] [address] follow up Cardiology Comment on above: follow up Start: 02-04-2025 End: 02-04-2025 Patient encounter procedure Urology Comment on above: follow up Start: 01-21-2025 End: 04-22-2025 Prostate Specific Ag Free [Mass/volume] in Serum or Plasma PROSTATE SPECIFIC ANTIGEN, FREE AND TOTAL Lab Routine Elevated PSA Benign prostatic hyperplasia with incomplete bladder emptying Expected: 01/21/2025, Expires: 04/22/2025 [facility] Comment on above: Expected: 01/21/2025, Expires: Start: 01-07-2025 End: 04-08-2025 Hemoglobin A1c in Blood HEMOGLOBIN A1C Lab Routine Type 2 diabetes mellitus without complication, with long-term current use of insulin (HCC) Expected: 01/07/2025, Expires: 04/08/2025 [facility] Comment on above: Expected: 01/07/2025, Expires: Start: 01-07-2025 End: 01-07-2025 ambulatory 01/07/2025 7:00 AM EDT Results Only [facility] [address] [place] [address] [facility] Start: 01-06-2025 End: 01-06-2025 Patient encounter procedure 01/06/2025 9:00 AM EDT Office Visit [facility] [address] [phone] Ophelia Null, formerly [facility] [address] [place] [address] Dm f/up; CGM interpretation [facility] Comment on above: Dm f/up; CGM interpretation Start: 12-22-2024 Influenza [facility] Start: 12-14-2024 Hemoglobin A1c measurement HbA1C [facility] Start: 12-10-2024 End: 12-10-2024 Patient encounter procedure [facility] [place] Comment on above: Return in about 6 months (around 12/04/19) for medicare wellness exam . Start: 12-05-2024 Annual PCP Team Chronic Disease Visit Annual PCP Team Chronic Disease Visit [facility] Start: 12-05-2024 Anxiety Screening Anxiety Screening [facility] Start: 12-05-2024 BP Controlled (<130/80) BP Controlled (<130/80) [facility] in Start: 12-05-2024 Depression Screening Depression Screening [facility] Start: 12-03-2024 Hepatitis B screening Urine Albumin:Creatinine Ratio [facility] Start: 12-03-2024 Hepatitis B surface antibody level LDL Cholesterol [facility] Start: 11-15-2024 Glaucoma screening Dilated Retinal Exam [facility] Start: 10-21-2024 End: 01-20-2025 Basic metabolic 2000 panel - Serum or Plasma BASIC METABOLIC PANEL Lab Routine Type 2 diabetes mellitus without complication, with long-term current use of insulin (HCC) Expected: 10/21/2024, Expires: 01/20/2025 [facility] Work Phone: Comment on above: Expected: 10/21/2024, Expires: Start: 10-21-2024 End: 10-21-2024 Patient encounter procedure 10/21/2024 9:00 AM EDT Office Visit [facility] [address] [phone] Ophelia Null, formerly [facility] [address] [place] [address] Dm f/up; CGM interpretation [facility] Comment on above: Dm f/up; CGM interpretation Start: 10-08-2024 End: 10-08-2024 Patient encounter procedure 10/08/2024 3:15 PM EDT Office Visit Urology [address] [address] Jun Goncalves MD [address] [place] [address] 4 wk follow up Urology Comment on above: 4 wk follow up Start: 10-05-2024 End: 01-04-2025 Prostate Specific Ag Free [Mass/volume] in Serum or Plasma PROSTATE SPECIFIC ANTIGEN, FREE Lab Routine Elevated PSA Benign prostatic hyperplasia with incomplete bladder emptying Expected: 10/05/2024, Expires: 01/04/2025 [facility] Comment on above: Expected: 10/05/2024, Expires: Start: 09-16-2024 End: 09-16-2024 Patient encounter procedure 09/16/2024 9:00 AM EDT Office Visit [facility] [address] [phone] Ophelia Null formerly [facility] [address] [place], [place] [phone] Dm f/up; CGM interpretation [facility] Comment on above: Dm f/up; CGM interpretation Start: 09-15-2024 End: 12-15-2024 Hemoglobin A1c in Blood HEMOGLOBIN A1C Lab Routine Type 2 diabetes mellitus without complication, with long-term current use of insulin (HCC) Expected: 09/15/2024, Expires: 12/15/2024 [facility] Work Phone: Comment on above: Expected: 09/15/2024, Expires: Start: 09-03-2024 Annual PCP Team Chronic Disease Visit Annual PCP Team Chronic Disease Visit [facility] Start: 08-28-2024 End: 08-28-2024 Patient encounter procedure 08/28/2024 8:00 AM EDT Office Visit Cardiology [address] [phone] Antoinette Alicea APRN.ROUGHENER [address] [place], [place] [phone] 6 month follow up Cardiology Comment on above: 6 month follow up Start: 08-25-2024 End: 08-25-2024 Patient encounter procedure 08/25/2024 3:00 PM EDT Office Visit Urology [address] [phone] Ryann Montiel APRN.ANNIE, DNP [address] [place], [place] [address] 4 wk follow up Urology Comment on above: 4 wk follow up Start: 07-23-2024 Hemoglobin A1c measurement HbA1C [facility] Start: 07-22-2024 End: 07-22-2024 Patient encounter procedure 07/22/2024 9:00 AM EDT Office Visit [facility] [address] [phone] Ophelia Null, formerly [facility] [address] [place], [place] [phone] Dm f/up; CGM interpretation [facility] Comment on above: Dm f/up; CGM interpretation Start: 07-21-2024 End: 07-21-2024 Patient encounter procedure 07/21/2024 9:00 AM EDT Office Visit Urology [address] [phone] Ryann Montiel APRN.ANNIE, DNP [address] [place], [place] [phone] Benign prostatic hyperplasia with lower urinary tract symptoms, symptom details ... Urology Comment on above: Benign prostatic hyperplasia with lower urinary tract symptoms, symptom details ... Start: 07-15-2024 BP Controlled (<130/80) BP Controlled (<130/80) [facility] in Start: 06-24-2024 End: 06-24-2024 Patient encounter procedure Ambulatory Surgery Comment on above: Dx: Screening for colon cancer [Z12.11]; Positive colorectal cancer screening using Cologuard test [R19.5] Start: 06-17-2024 End: 06-17-2024 Patient encounter procedure 06/17/2024 9:00 AM EST Office Visit [facility] [address] [phone] Ophelia Null, formerly [facility] [address] [place] [address] Dm f/up; CGM interpretation [facility] Comment on above: Dm f/up; CGM interpretation Start: 06-05-2024 End: 09-04-2024 Comprehensive metabolic 2000 panel - Serum or Plasma COMPREHENSIVE METABOLIC PANEL Lab Routine Type 2 diabetes mellitus with both eyes affected 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, with long-term current use of insulin (HCC) Expected: 06/05/2024, Expires: 09/04/2024 [facility] Work Phone: Comment on above: Expected: 06/05/2024, Expires: Start: 06-05-2024 End: 09-04-2024 Hemoglobin A1c in Blood HEMOGLOBIN A1C Lab Routine Type 2 diabetes mellitus with both eyes affected 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, with long-term current use of insulin (HCC) Expected: 06/05/2024, Expires: 09/04/2024 [facility] Comment on above: Expected: 06/05/2024, Expires: Start: 06-05-2024 End: 09-04-2024 PSA/PROSTATE SPECIFIC ANTIGEN SCREENING PSA/PROSTATE SPECIFIC ANTIGEN SCREENING Lab Routine Screening for prostate cancer Expected: 06/05/2024, Expires: 09/04/2024 [facility] Comment on above: Expected: 06/05/2024, Expires: Start: 06-05-2024 End: 06-05-2024 Patient encounter procedure [facility] [place] Comment on above: 6 month follow up Start: 04-29-2024 End: 07-29-2024 Hemoglobin A1c in Blood HEMOGLOBIN A1C Lab Routine Expected: 04/29/2024, Expires: 07/29/2024 [facility] Work Phone: Comment on above: Expected: 04/29/2024, Expires: Start: 04-29-2024 End: 04-29-2024 Patient encounter procedure 04/29/2024 9:00 AM EST Office Visit [facility] [address] [phone] [facility] [address] [place] [address] Dm f/up; CGM interpretation [facility] Comment on above: Dm f/up; CGM interpretation Start: 04-25-2024 BP Controlled (<130/80) BP Controlled (<130/80) [facility] Start: 04-23-2024 Advance Directive Discussion Advance Directive Discussion [facility] Start: 03-19-2024 BP Controlled (<130/80) BP Controlled (<130/80) [facility] Start: 03-04-2024 End: 03-04-2024 Patient encounter procedure 03/04/2024 9:00 AM EST Office Visit [facility] [address] [phone] [facility] [address] [place] [address] Dm f/up; CGM interpretation [facility] Comment on above: Dm f/up; CGM interpretation Start: 02-28-2024 End: 02-28-2024 Patient encounter procedure 02/28/2024 8:00 AM EST Office Visit Cardiology [address] [address] Antoinette Alicea APRN.ROUGHENER [address] [place] [address] 2 month follow up Cardiology Comment on above: 2 month follow up Start: 02-15-2024 Annual PCP Team Chronic Disease Visit Annual PCP Team Chronic Disease Visit [facility] Start: 02-15-2024 BP Controlled (<130/80) BP Controlled (<130/80) [facility] Start: 02-14-2024 Hemoglobin A1c measurement HbA1C [facility] Start: 02-08-2024 BP Controlled (<130/80) BP Controlled (<130/80) [facility] Start: 01-24-2024 End: 01-24-2024 Patient encounter procedure 01/24/2024 9:40 AM EDT Office Visit Cardiology [address] [address] SOB (shortness of breath) [R06.02] Cardiology Comment on above: SOB (shortness of breath) [R06.02] Start: 01-23-2024 End: 01-23-2024 Patient encounter procedure 01/23/2024 9:00 AM EDT Appointment [facility] [address] [place] [address] SOB (shortness of breath) [R06.02] [facility] Comment on above: SOB (shortness of breath) [R06.02] Start: 01-16-2024 BP Controlled (<130/80) BP Controlled (<130/80) [facility] in Start: 01-01-2024 End: 04-01-2024 Hemoglobin A1c in Blood HEMOGLOBIN A1C Lab Routine Type 2 diabetes mellitus without complication, with long-term current use of insulin (HCC) Expected: 01/01/2024, Expires: 04/01/2024 [facility] Work Phone: Comment on above: Expected: 01/01/2024, Expires: Start: 01-01-2024 End: 01-01-2024 Patient encounter procedure 01/01/2024 9:00 AM EDT Office Visit [facility] [address] [phone] Ophelia Null, formerly [facility] [address] [place] [address] Dm f/up; CGM interpretation [facility] Comment on above: Dm f/up; CGM interpretation Start: 12-28-2023 End: 12-28-2023 Patient encounter procedure 12/28/2023 1:20 PM EDT Appointment Radiology [address] [place] [address] Thunderclap headache [G44.53] Radiology Comment on above: Thunderclap headache [G44.53] Start: 12-27-2023 End: 12-27-2023 Patient encounter procedure 12/27/2023 8:00 AM EDT Office Visit Cardiology [address] [address] Antoinette Alicea APRN.ROUGHENER [address] [place] [address] 3 mo f/u Antoinette Alicea CNP Cardiology Comment on above: 3 mo f/u Antoinette Alicea CNP Start: 12-23-2023 Covid-19 Vaccine ( season) Covid-19 Vaccine () [facility] Start: 12-23-2023 Covid-19 Vaccine () Covid-19 Vaccine () [facility] Start: 12-23-2023 Influenza vaccination Influenza Vaccine (#1) [facility] Start: 12-20-2023 End: 12-20-2023 Patient encounter procedure 12/20/2023 8:00 AM EDT Office Visit Neurology [address] [place] [address] [place] [phone] Ca Peterson PA-C [address] [place] [address] ED Follow Up - recurrent headaches Neurology Comment on above: ED Follow Up - recurrent headaches Start: 12-19-2023 End: 12-19-2023 Patient encounter procedure 12/19/2023 7:20 AM EDT Appointment Radiology [address] [place] [address] Thunderclap headache [G44.53] Radiology Comment on above: Thunderclap headache [G44.53] Start: 12-11-2023 End: 03-11-2024 Basic metabolic 2000 panel - Serum or Plasma BASIC METABOLIC PANEL Lab Routine Hypertension, unspecified type Expected: 12/11/2023, Expires: 03/11/2024 [facility] Work Phone: Comment on above: Expected: 12/11/2023, Expires: Start: 12-06-2023 End: 12-06-2023 Patient encounter procedure 12/06/2023 7:00 AM EDT Office Visit Family [facility] [address] [address] Denis Rivero MD [address] [place] [address] 3 mo follow up Family [facility] Comment on above: 3 mo follow up Start: 12-04-2023 End: 03-04-2024 Basic metabolic 2000 panel - Serum or Plasma BASIC METABOLIC PANEL Lab Routine Primary hypertension Expected: 12/04/2023, Expires: 03/04/2024 [facility] Work Phone: Comment on above: Expected: 12/04/2023, Expires: Start: 11-30-2023 End: 02-29-2024 C reactive protein [Mass/volume] in Serum or Plasma C-REACTIVE PROTEIN Lab Routine Thunderclap headache Expected: 11/30/2023, Expires: 02/29/2024 [facility] Comment on above: Expected: 11/30/2023, Expires: Start: 11-30-2023 End: 02-29-2024 Erythrocyte sedimentation rate SEDIMENTATION RATE, WESTERGREN Lab Routine Thunderclap headache Expected: 11/30/2023, Expires: 02/29/2024 [facility] Comment on above: Expected: 11/30/2023, Expires: Start: 11-22-2023 End: 11-22-2023 Patient encounter procedure 11/22/2023 11:00 AM EDT Office Visit Neurology [address] [place] [address] [place] [address] [place] [address] ED Follow Up - recurrent headaches Neurology Comment on above: ED Follow Up - recurrent headaches Start: 11-20-2023 End: 02-19-2024 Lipid 1996 panel - Serum or Plasma LIPID PANEL BASIC Lab Routine Hyperlipidemia Expected: 11/20/2023, Expires: 02/19/2024 [facility] Comment on above: Expected: 11/20/2023, Expires: Start: 11-20-2023 End: 02-19-2024 Microalbumin/Creatinine [Mass Ratio] in Urine ALBUMIN/CREATININE RATIO, URINE Lab Routine Diabetes mellitus type 1, controlled, without complications (HCC) Expected: 11/20/2023, Expires: 02/19/2024 [facility] Work Phone: Comment on above: Expected: 11/20/2023, Expires: Start: 11-20-2023 End: 11-20-2023 Patient encounter procedure 11/20/2023 9:30 AM EDT Office Visit [facility] [address] [phone] [facility] [address] [place], [place] [phone] Dm f/up; CGM interpretation [facility] Comment on above: Dm f/up; CGM interpretation Start: 11-17-2023 Glaucoma screening Dilated Retinal Exam [facility] Start: 11-17-2023 Hepatitis C antibody, confirmatory test DILATED RETINAL EXAM [facility] Start: 11-15-2023 3 comp foot exam completed DIABETIC FOOT EXAM [facility] Start: 11-15-2023 ANNUAL PCP TEAM CHRONIC DISEASE VISIT ANNUAL PCP TEAM CHRONIC DISEASE VISIT [facility] Start: 11-15-2023 Diabetic foot examination Diabetic Foot Exam [facility] Start: 11-15-2023 Medicare Annual Wellness Visit Medicare Annual Wellness Visit [facility] Start: 10-30-2023 End: 10-30-2023 Patient encounter procedure 10/30/2023 9:00 AM EDT Office [facility] [address] [phone] [facility] [address] [place], [place] [id number] Dm f/up; CGM interpretation [facility] Comment on above: Dm f/up; CGM interpretation Start: 09-18-2023 End: 09-18-2023 Patient encounter procedure 09/18/2023 8:40 AM EDT Office Visit Cardiology [address] [place] [address] Arian Burkeazbe Garcia, [address] [place] [address] 6 month follow up Cardiology Comment on above: 6 month follow up Start: 09-05-2023 End: 09-05-2023 Patient encounter procedure 09/05/2023 7:00 AM EDT Appointment [facility] [address] [place] [address] S/P aortic valve replacement [Z95.2] [facility] Comment on above: S/P aortic valve replacement [Z95.2] Start: 09-04-2023 End: 12-04-2023 CBC W Auto Differential panel - Blood COMPLETE BLOOD COUNT AND DIFFERENTIAL Lab Routine S/P aortic valve replacement Expected: 09/04/2023, Expires: 12/04/2023 [facility] Work Phone: Comment on above: Expected: 09/04/2023, Expires: 4 Start: 09-04-2023 End: 12-04-2023 Comprehensive metabolic 2000 panel - Serum or Plasma COMPREHENSIVE METABOLIC PANEL Lab Routine S/P aortic valve replacement Expected: 09/04/2023, Expires: 12/04/2023 [facility] Comment on above: Expected: 09/04/2023, Expires: 4 Start: 09-04-2023 End: 09-04-2023 Patient encounter procedure [facility] Comment on above: Dm f/up; CGM interpretation follow up for heart surgery Start: 08-29-2023 BP CONTROLLED (<130/80) BP CONTROLLED (<130/80) [facility] in Start: 08-16-2023 End: 08-16-2023 Admission to same day surgery center 08/16/2023 11:48 AM EDT - 08/16/2023 5:46 PM EDT Surgery Admitting [address] [place] [id number] Robert Ferrer MD [address] [place] [address] Myectomy AVR Admitting Comment on above: Myectomy AVR Start: 08-16-2023 End: 08-16-2023 Anesthesia consultation 08/16/2023 11:48 AM EDT Anesthesia Event Admitting [address] [id number] Antoinette Higgins DO [address] [id number] Admitting Start: 08-16-2023 End: 08-16-2023 Rplcmt prost aortic valve open xcp homogrf/stent AVR W/ CARDIOPULMONARY BYPASS W/ PROSTHETIC OTHER THAN HOMOGRAFT/ STENTLESS TISSUE VALVE HOCM (hypertrophic obstructive cardiomyopathy) (HCC) Aortic valve stenosis, etiology of cardiac valve disease unspecified Hyperlipidemia, unspecified hyperlipidemia type Hypertension, unspecified type Controlled type 2 diabetes mellitus without complication, unspecified whether half-way insulin use (HCC) SOB (shortness of breath) Chest pain, unspecified type Pre-operative cardiovascular examination 08/16/2023 11:48 AM EDT [facility] Start: 08-16-2023 Subsequent hospital visit by physician 08/16/2023 11:48 AM EDT Hospital Encounter Admitting [address] [id number] [place] [address] [place] [id number] HOCM (hypertrophic obstructive cardiomyopathy) (HCC) [I42.1] Admitting Comment on above: HOCM (hypertrophic obstructive cardiomyo deondre) (HCC) [I42.1] Start: 08-16-2023 End: 08-16-2023 Ventriculomyotomy-myecto my VENTRICULOMYOTOMY FOR IDEOPATHIC HYPERTROPHIC SUBAORTIC STENOSIS HOCM (hypertrophic obstructive cardiomyopathy) (HCC) Aortic valve stenosis, etiology of cardiac valve disease unspecified Hyperlipidemia, unspecified hyperlipidemia type Hypertension, unspecified type Controlled type 2 diabetes mellitus without complication, 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) SOB (shortness of breath) Chest pain, unspecified type Pre-operative cardiovascular examination 08/16/2023 11:[address] [facility] Start: 08-16-2023 End: 08-16-2023 Admission to same day surgery center 08/16/2023 6:30 AM EDT - 08/16/2023 12:28 PM EDT Surgery Admitting [address] [id number] [place] [address] [place], [place] [id number] Myectomy AVR Admitting Comment on above: Myectomy AVR Start: 08-16-2023 End: 08-16-2023 Rplcmt prost aortic valve open xcp homogrf/stent AVR W/ CARDIOPULMONARY BYPASS W/ PROSTHETIC OTHER THAN HOMOGRAFT/ STENTLESS TISSUE VALVE HOCM (hypertrophic obstructive cardiomyopathy) (HCC) Aortic valve stenosis, etiology of cardiac valve disease unspecified Hyperlipidemia, unspecified hyperlipidemia type Hypertension, unspecified type Controlled type 2 diabetes mellitus without complication, 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) SOB (shortness of breath) Chest pain, unspecified type Pre-operative cardiovascular examination 08/16/2023 6:30 AM EDT [facility] Start: 08-16-2023 Subsequent hospital visit by physician 08/16/2023 6:30 AM EDT Hospital Encounter Admitting [address] [id number] Robert Ferrer MD [address] [place] [address] HOCM (hypertrophic obstructive cardiomyopathy) (HCC) [I42.1] Admitting Comment on above: HOCM (hypertrophic obstructive cardiomyo deondre) (HCC) [I42.1] Start: 08-16-2023 End: 08-16-2023 Ventriculomyotomy-myecto my VENTRICULOMYOTOMY FOR IDEOPATHIC HYPERTROPHIC SUBAORTIC STENOSIS HOCM (hypertrophic obstructive cardiomyopathy) (HCC) Aortic valve stenosis, etiology of cardiac valve disease unspecified Hyperlipidemia, unspecified hyperlipidemia type Hypertension, unspecified type Controlled type 2 diabetes mellitus without complication, 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) SOB (shortness of breath) Chest pain, unspecified type Pre-operative cardiovascular examination 08/16/2023 6:30 AM EDT [facility] Start: 08-15-2023 End: 08-15-2023 Patient encounter procedure 08/15/2023 9:30 AM EDT Office Visit Cardiothoracic [address] [place] [address] [facility] 08/15 Cardiothoracic Comment on above: [facility] 08/15 Start: 08-15-2023 End: 08-15-2023 Patient encounter procedure Radiology Comment on above: HOCM (hypertrophic obstructive cardiomyo deondre) (HCC) [I42.1] [facility] 08/15 Start: 08-15-2023 End: 08-15-2023 [facility] [id number] Dra carmela Francis Comment on above: HOCM (hypertrophic obstructive cardiomyo deondre) (HCC) [I42.1] Start: 08-13-2023 End: 2023 aPTT in Platelet poor plasma by Coagulation assay ACTIVATED PTT Lab Routine HOCM (hypertrophic obstructive cardiomyopathy) (HCC) Aortic valve stenosis, etiology of cardiac valve disease unspecified Hyperlipidemia, unspecified hyperlipidemia type Hypertension, unspecified type Controlled type 2 diabetes mellitus without complication, unspecified whether half-way insulin use (HCC) SOB (shortness of breath) Chest pain, unspecified type Pre-operative cardiovascular examination Expected: 08/13/2023, Expires: 2023 [facility] Work Phone: Comment on above: Expected: 08/13/2023, Expires: Start: 08-13-2023 End: 2023 CBC W Auto Differential panel - Blood CBC + DIFF Lab Routine HOCM (hypertrophic obstructive cardiomyopathy) (HCC) Aortic valve stenosis, etiology of cardiac valve disease unspecified Hyperlipidemia, unspecified hyperlipidemia type Hypertension, unspecified type Controlled type 2 diabetes mellitus without complication, unspecified whether half-way insulin use (HCC) SOB (shortness of breath) Chest pain, unspecified type Pre-operative cardiovascular examination Expected: 08/13/2023 (Approximate), Expires: 2023 [facility] Work Phone: Comment on above: Expected: 08/13/2023 (Approximate), Expi res: 2023 Start: 08-13-2023 End: 2023 Comprehensive metabolic 2000 panel - Serum or Plasma COMP METABOLIC PANEL Lab Routine HOCM (hypertrophic obstructive cardiomyopathy) (HCC) Aortic valve stenosis, etiology of cardiac valve disease unspecified Hyperlipidemia, unspecified hyperlipidemia type Hypertension, unspecified type Controlled type 2 diabetes mellitus without complication, 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) SOB (shortness of breath) Chest pain, unspecified type Pre-operative cardiovascular examination Expected: 08/13/2023 (Approximate), Expires: 2023 [facility] Work Phone: Comment on above: Expected: 08/13/2023 (Approximate), Expi res: 2023 Start: 08-13-2023 End: 2023 CONFIRM BLOOD TYPE CONFIRM BLOOD TYPE Blood Bank Routine HOCM (hypertrophic obstructive cardiomyopathy) (HCC) Aortic valve stenosis, etiology of cardiac valve disease unspecified Hyperlipidemia, unspecified hyperlipidemia type Hypertension, unspecified type Controlled type 2 diabetes mellitus without complication, 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) SOB (shortness of breath) Chest pain, unspecified type Pre-operative cardiovascular examination Expected: 08/13/2023 (Approximate), Expires: 2023 [facility] Work Phone: Comment on above: Expected: 08/13/2023 (Approximate), Expi res: 2023 Start: 08-13-2023 End: 2023 Hemoglobin A1c in Blood HGB A1C Lab Routine HOCM (hypertrophic obstructive cardiomyopathy) (HCC) Aortic valve stenosis, etiology of cardiac valve disease unspecified Hyperlipidemia, unspecified hyperlipidemia type Hypertension, unspecified type Controlled type 2 diabetes mellitus without complication, unspecified whether half-way insulin use (HCC) SOB (shortness of breath) Chest pain, unspecified type Pre-operative cardiovascular examination Expected: 08/13/2023, Expires: 2023 [facility] Work Phone: Comment on above: Expected: 08/13/2023, Expires: Start: 08-13-2023 End: 2023 Lactate dehydrogenase [Enzymatic activity/volume] in Serum or Plasma LD LACTATE DEHYDRO Lab Routine HOCM (hypertrophic obstructive cardiomyopathy) (HCC) Aortic valve stenosis, etiology of cardiac valve disease unspecified Hyperlipidemia, unspecified hyperlipidemia type Hypertension, unspecified type Controlled type 2 diabetes mellitus without complication, 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) SOB (shortness of breath) Chest pain, unspecified type Pre-operative cardiovascular examination Expected: 08/13/2023 (Approximate), Expires: 2023 [facility] Work Phone: Comment on above: Expected: 08/13/2023 (Approximate), Expi res: 2023 Start: 08-13-2023 End: 2023 PT panel - Platelet poor plasma by Coagulation assay PROTHROMBIN TIME/PT Lab Routine HOCM (hypertrophic obstructive cardiomyopathy) (HCC) Aortic valve stenosis, etiology of cardiac valve disease unspecified Hyperlipidemia, unspecified hyperlipidemia type Hypertension, unspecified type Controlled type 2 diabetes mellitus without complication, unspecified whether half-way insulin use (HCC) SOB (shortness of breath) Chest pain, unspecified type Pre-operative cardiovascular examination Expected: 08/13/2023, Expires: 2023 [facility] Work Phone: Comment on above: Expected: 08/13/2023, Expires: Start: 08-13-2023 End: 2023 TYPE AND SCREEN,30 DAY TYPE AND SCREEN,30 DAY Blood Bank Routine HOCM (hypertrophic obstructive cardiomyopathy) (HCC) Aortic valve stenosis, etiology of cardiac valve disease unspecified Hyperlipidemia, unspecified hyperlipidemia type Hypertension, unspecified type Controlled type 2 diabetes mellitus without complication, unspecified whether half-way insulin use (HCC) SOB (shortness of breath) Chest pain, unspecified type Pre-operative cardiovascular examination Expected: 08/13/2023 (Approximate), Expires: 2023 [facility] Work Phone: Comment on above: Expected: 08/13/2023 (Approximate), Expi res: 2023 Start: 08-13-2023 End: 2023 URINALYSIS, DIPSTICK ONLY URINALYSIS, DIPSTICK ONLY Lab Routine HOCM (hypertrophic obstructive cardiomyopathy) (HCC) Aortic valve stenosis, etiology of cardiac valve disease unspecified Hyperlipidemia, unspecified hyperlipidemia type Hypertension, unspecified type Controlled type 2 diabetes mellitus without complication, 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) SOB (shortness of breath) Chest pain, unspecified type Pre-operative cardiovascular examination Expected: 08/13/2023 (Approximate), Expires: 2023 [facility] Work Phone: Comment on above: Expected: 08/13/2023 (Approximate), Expi res: 2023 Start: 07-04-2023 ANNUAL PCP TEAM CHRONIC DISEASE VISIT ANNUAL PCP TEAM CHRONIC DISEASE VISIT [facility] Start: 07-04-2023 BP CONTROLLED (<130/80) BP CONTROLLED (<130/80) [facility] Start: 05-17-2023 ANNUAL PCP TEAM CHRONIC DISEASE VISIT ANNUAL PCP TEAM CHRONIC DISEASE VISIT [facility] Start: 05-17-2023 Hemoglobin A1c measurement HbA1C [facility] Start: 05-17-2023 Hemoglobin A1c/Hemoglobin.total in Blood HBA1C [facility] Start: 05-12-2023 Hepatitis B screening URINE ALBUMIN:CREATININE RATIO [facility] Start: 05-12-2023 Hepatitis B surface antibody level LDL CHOLESTEROL [facility] Start: 04-23-2023 Advance Directive Discussion Advance Directive Discussion [facility] Start: 04-23-2023 Behavioral Health Screening Behavioral Health Screening [facility] Start: 04-23-2023 Depression Assessment Depression Assessment [facility] Start: 03-21-2023 End: 06-20-2023 Basic metabolic 2000 panel - Serum or Plasma BASIC METABOLIC PNL Lab Routine Dyspnea on exertion Expected: 03/21/2023, Expires: 06/20/2023 [facility] Work Phone: Comment on above: Expected: 03/21/2023, Expires: 4 Start: 03-21-2023 End: 06-20-2023 CBC panel - Blood by Automated count CBC Lab Routine Dyspnea on exertion Expected: 03/21/2023, Expires: 06/20/2023 [facility] Work Phone: Comment on above: Expected: 03/21/2023, Expires: 4 Start: 03-21-2023 End: 06-20-2023 Natriuretic peptide.B prohormone N-Terminal [Mass/volume] in Serum or Plasma NT PRO BNP Lab Routine Dyspnea on exertion Expected: 03/21/2023, Expires: 06/20/2023 [facility] Work Phone: Comment on above: Expected: 03/21/2023, Expires: 4 Start: 01-16-2023 BP CONTROLLED (<130/80) BP CONTROLLED (<130/80) [facility] Start: 01-03-2023 Hemoglobin A1c/Hemoglobin.total in Blood HBA1C [facility] Start: 12-30-2022 Hepatitis C antibody, confirmatory test DILATED RETINAL EXAM [facility] Start: 12-22-2022 Covid-19 Vaccine () Covid-19 Vaccine () [facility] Start: 12-22-2022 Influenza vaccination [facility] Start: 12-16-2022 BP CONTROLLED (<130/80) BP CONTROLLED (<130/80) [facility] Start: 12-13-2022 BP CONTROLLED (<130/80) BP CONTROLLED (<130/80) [facility] Start: 11-30-2022 COLORECTAL CANCER SCREENING COLORECTAL CANCER SCREENING [facility] Start: 11-30-2022 FECAL OCCULT BLOOD FECAL OCCULT BLOOD [facility] Start: 11-30-2022 Screening for malignant neoplasm of colon Fecal Occult Blood [facility] Start: 11-14-2022 3 comp foot exam completed DIABETIC FOOT EXAM [facility] Start: 11-14-2022 Adult depression screening assessment DEPRESSION SCREENING [facility] Start: 11-14-2022 ANNUAL PCP TEAM CHRONIC DISEASE VISIT ANNUAL PCP TEAM CHRONIC DISEASE VISIT [facility] Start: 11-14-2022 BP CONTROLLED (<130/80) BP CONTROLLED (<130/80) [facility] Start: 11-09-2022 Hemoglobin A1c/Hemoglobin.total in Blood HBA1C [facility] Start: 08-10-2022 End: 10-10-2022 Hemoglobin A1c in Blood HGB A1C Lab Routine Type 2 diabetes mellitus without complication, with long-term current use of insulin (HCC) Expected: 08/10/2022, Expires: 10/10/2022 [facility] Work Phone: Comment on above: Expected: 08/10/2022, Expires: 3 Start: 06-29-2022 End: 08-29-2022 Basic metabolic 2000 panel - Serum or Plasma BASIC METABOLIC PNL Lab Routine Coronary artery disease involving [place] coronary artery of [place] heart without angina pectoris HERNANDEZ (dyspnea on exertion) Essential hypertension Mixed hyperlipidemia Non-rheumatic aortic stenosis AV block, 1st degree Expected: 06/29/2022, Expires: 08/29/2022 [facility] Work Phone: Comment on above: Expected: 06/29/2022, Expires: 3 Start: 06-29-2022 End: 08-29-2022 CBC panel - Blood by Automated count CBC Lab Routine Coronary artery disease involving [place] coronary artery of [place] heart without angina pectoris HERNANDEZ (dyspnea on exertion) Essential hypertension Mixed hyperlipidemia Non-rheumatic aortic stenosis AV block, 1st degree Expected: 06/29/2022, Expires: 08/29/2022 [facility] Work Phone: Comment on above: Expected: 06/29/2022, Expires: 3 Start: 06-19-2022 COVID-19 VACCINE (6 - Moderna series) COVID-19 VACCINE (6 - Moderna series) [facility] Start: 06-15-2022 Hemoglobin A1c/Hemoglobin.total in Blood HBA1C [facility] Start: 06-09-2022 ANNUAL PCP TEAM CHRONIC DISEASE VISIT ANNUAL PCP TEAM CHRONIC DISEASE VISIT [facility] Start: 06-09-2022 Hepatitis B screening URINE ALBUMIN:CREATININE RATIO [facility] Start: 06-09-2022 Hepatitis B surface antibody level LDL CHOLESTEROL [facility] Start: 05-02-2022 End: 07-02-2022 ALBUMIN/CREAT RATIO RND UR ALBUMIN/CREAT RATIO RND UR Lab Routine Type 2 diabetes mellitus with both eyes affected 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, with long-term current use of insulin (HCC) Expected: 05/02/2022, Expires: 07/02/2022 [facility] Work Phone: Comment on above: Expected: 05/02/2022, Expires: 3 Start: 05-02-2022 End: 07-02-2022 Hemoglobin A1c in Blood HGB A1C Lab Routine Type 2 diabetes mellitus with both eyes affected 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, with long-term current use of insulin (HCC) Expected: 05/02/2022, Expires: 07/02/2022 [facility] Work Phone: Comment on above: Expected: 05/02/2022, Expires: 3 Start: 05-02-2022 End: 07-02-2022 Lipid 1996 panel - Serum or Plasma LIPID PANEL BASIC Lab Routine Hyperlipidemia Expected: 05/02/2022, Expires: 07/02/2022 [facility] Work Phone: Comment on above: Expected: 05/02/2022, Expires: 3 Start: 05-02-2022 End: 07-02-2022 SCHEDULE LAB TESTING SCHEDULE LAB TESTING Lab Routine Expected: 05/02/2022, Expires: 07/02/2022 [facility] Work Phone: Comment on above: Expected: 05/02/2022, Expires: 3 Start: 04-23-2022 ADVANCE DIRECTIVE DISCUSSION ADVANCE DIRECTIVE DISCUSSION [facility] Start: 04-23-2022 DEPRESSION ASSESSMENT DEPRESSION ASSESSMENT [facility] Start: 03-13-2022 End: 05-13-2022 Basic metabolic 2000 panel - Serum or Plasma BASIC METABOLIC PNL Lab Routine Hypokalemia Expected: 03/13/2022 (Approximate), Expires: 05/13/2022 [facility] Work Phone: Comment on above: Expected: 03/13/2022 (Approximate), Expi res: 05/13/2022 Start: 12-22-2021 Influenza vaccination INFLUENZA (#1) [facility] Start: 12-16-2021 Hepatitis C antibody, confirmatory test DILATED RETINAL EXAM [facility] Start: 12-07-2021 Hemoglobin A1c/Hemoglobin.total in Blood HBA1C [facility] Start: 10-30-2021 COVID-19 VACCINE (5 - Booster for Moderna series) COVID-19 VACCINE (5 - Booster for Moderna series) [facility] Start: 10-28-2021 End: 12-28-2021 Basic metabolic 2000 panel - Serum or Plasma BASIC METABOLIC PNL Lab Routine Uncontrolled type 2 diabetes mellitus with hyperglycemia (HCC) Expected: 10/28/2021, Expires: 12/28/2021 [facility] Work Phone: Comment on above: Expected: 10/28/2021, Expires: 2 Start: 10-28-2021 End: 12-28-2021 Hemoglobin A1c in Blood HGB A1C Lab Routine Uncontrolled type 2 diabetes mellitus with hyperglycemia (HCC) Expected: 10/28/2021, Expires: 12/28/2021 [facility] Work Phone: Comment on above: Expected: 10/28/2021, Expires: 2 Start: 10-12-2021 Adult depression screening assessment DEPRESSION SCREENING [facility] Start: 10-12-2021 PNEUMOCOCCAL: 65+ (2 - PCV) PNEUMOCOCCAL: 65+ (2 - PCV) [facility] Start: 10-10-2021 COLORECTAL CANCER SCREENING COLORECTAL CANCER SCREENING [facility] Start: 10-10-2021 FECAL OCCULT BLOOD FECAL OCCULT BLOOD [facility] Start: 09-28-2021 3 comp foot exam completed DIABETIC FOOT EXAM [facility] Start: 07-19-2021 COVID-19 VACCINE (4 - Booster for Moderna series) COVID-19 VACCINE (4 - Booster for Moderna series) [facility] Start: 04-23-2021 DEPRESSION ASSESSMENT DEPRESSION ASSESSMENT [facility] Start: 2014 Hepatitis B Vaccine (1 of 3 - Risk 3-dose series) Hepatitis B Vaccine (1 of 3 - Risk 3-dose series) [facility] Start: 2014 RSV Vaccine (1 - 1-dose 60+ series) RSV Vaccine (1 - 1-dose 60+ series) [facility] Start: 2014 RSV Vaccine (1 - Risk 60-74 years 1-dose series) RSV Vaccine (1 - Risk 60-74 years 1-dose series) [facility] Start: 2004 SHINGRIX VACCINE (1 of 2) SHINGRIX VACCINE (1 of 2) [facility] Start: 11-13-1999 COLOGUARD (FIT-DNA) COLOGUARD (FIT-DNA) [facility] Start: 11-13-1999 Colonoscopy COLONOSCOPY [facility] Start: 11-13-[address] COLONOGRAPHY [facility] Start: 11-13-1999 Screening for malignant neoplasm of colon [facility] Start: 11-13-1999 SIGMOIDOSCOPY SIGMOIDOSCOPY [facility] Start: 1972 Anxiety Screening Anxiety Screening [facility] Start: 1972 BP CONTROLLED (<130/80) BP CONTROLLED (<130/80) [facility] in Start: 1972 Depression Screening Depression Screening [facility] BLADDER SCAN BLADDER SCAN Pro cedures Routine Elevated PSA Benign prostatic hyperplasia with incomplete bladder emptying Ordered: 07/21/2024 [facility] Work Phone: Comment on above: Ordered: 07/21/2024 BLADDER SCAN BLADDER SCAN Pro cedures Routine Elevated PSA Screening for genitourinary condition Ordered: 10/08/2024 [facility] Work Phone: Comment on above: Ordered: 10/08/2024 CARDIAC REHAB II OUT PT ([place], [place]) CARDIAC REHAB II OUTPT ([place], [place]) BIC Routine Coronary artery disease involving [place] coronary artery of [place] heart without angina pectoris Status post insertion of drug eluting coronary artery stent Ordered: 09/22/2022 [facility] Work Phone: Comment on above: Ordered: 09/22/2022 End: 02-08-2024 COLONOSCOPY DIAGNOSTIC COLONOSCOPY DIAGNOSTIC Endoscopy Routine Positive colorectal cancer screening using Cologuard test 1 Occurrences starting 02/07/2023 until 02/08/2024 [facility] Work Phone: Comment on above: 1 Occurrences starting 02/07/2023 until 02/08/2024 End: 04-19-2024 Ct angio abd&plvis cntrst mtrl w/wo cntrst img CTA ABD/PEL W IVCON Radiology Routine Encounter for preprocedural cardiovascular examination 1 Occurrences starting 03/21/2023 until 04/19/2024 [facility] Work Phone: Comment on above: 1 Occurrences starting 03/21/2023 until 04/19/2024 End: 04-19-2024 Ct angiography chest w/contrast/noncontrast CTA CHEST (GATED) WO/W IVCON Radiology Routine Encounter for preprocedural cardiovascular examination 1 Occurrences starting 03/21/2023 until 04/19/2024 [facility] Work Phone: Comment on above: 1 Occurrences starting 03/21/2023 until 04/19/2024 ECG COMPLETE ECG COMPLETE ECG 06/29/2022 9:03 AM EST [facility] ECG COMPLETE ECG COMPLETE ECG 08/28/2022 8:07 AM EDT [facility] End: 07-12-2024 ECG COMPLETE ECG COMPLETE ECG Routine HOCM (hypertrophic obstructive cardiomyopathy) (HCC) Aortic valve stenosis, etiology of cardiac valve disease unspecified Hyperlipidemia, unspecified hyperlipidemia type Hypertension, unspecified type Controlled type 2 diabetes mellitus without complication, 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 ([facility]) SOB (shortness of breath) Chest pain, unspecified type Pre-operative cardiovascular examination 1 Occurrences starting 07/13/2023 until 07/12/2024 [facility] Work Phone: Comment on above: 1 Occurrences starting 07/13/2023 until 07/12/2024 End: 06-30-2023 Echocardiography ECHO Cardiology Routine Coronary artery disease involving [place] coronary artery of [place] heart without angina pectoris HERNANDEZ (dyspnea on exertion) Essential hypertension Mixed hyperlipidemia Non-rheumatic aortic stenosis AV block, 1st degree 1 Occurrences starting 06/29/2022 until 06/30/2023 [facility] Work Phone: Comment on above: 1 Occurrences starting 06/29/2022 until 06/30/2023 End: 01-16-2024 Echocardiography ECHO Cardiology Routine Nonrheumatic aortic valve stenosis 1 Occurrences starting 01/15/2023 until 01/16/2024 [facility] Work Phone: Comment on above: 1 Occurrences starting 01/15/2023 until 01/16/2024 End: 12-26-2024 Echocardiography ECHO Cardiology Routine SOB (shortness of breath) 1 Occurrences starting 12/27/2023 until 12/26/2024 [facility] Work Phone: Comment on above: 1 Occurrences starting 12/27/2023 until 12/26/2024 Hemoglobin A1c in Blood HGB A1C Lab Routine Type 2 diabetes mellitus without complication, with long-term current use of insulin (HCC) 07/03/2022 10:26 AM EDT [facility] Work Phone: Hemoglobin.gastroint yohannes nal.lower [Presence] in Stool by Immunoassay FECAL OCCULT BLOOD TEST Lab Routine Screening for colon cancer Ordered: 10/14/2021 [facility] Work Phone: Comment on above: Ordered: 10/14/2021 Hemoglobin.gastroint yohannes nal.lower [Presence] in Stool by Immunoassay FECAL OCCULT BLOOD TEST Lab Routine Screening for colon cancer Ordered: 11/14/2021 [facility] Work Phone: Comment on above: Ordered: 11/14/2021 INTERACTIVE HEART SURGERY PROGRAM INTERACTIVE HEART SURGERY PROGRAM Procedures Routine HOCM (hypertrophic obstructive cardiomyopathy) (FORMERLY [facility]) Aortic valve stenosis, etiology of cardiac valve disease unspecified Hyperlipidemia, unspecified hyperlipidemia type Hypertension, unspecified type Controlled type 2 diabetes mellitus without complication, 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) SOB (shortness of breath) Chest pain, unspecified type Pre-operative cardiovascular examination Ordered: 07/13/2023 [facility] Work Phone: Comment on above: Ordered: 07/13/2023 End: 12-29-2024 MR Brain WO contrast MRI BRAIN WO IVCON Radiology Routine Thunderclap headache 1 Occurrences starting 11/30/2023 until 12/29/2024 [facility] Work Phone: Comment on above: 1 Occurrences starting 11/30/2023 until 12/29/2024 End: 12-29-2024 MRA Head vessels WO contrast MRA BRAIN WO IVCON Radiology Routine Thunderclap headache 1 Occurrences starting 11/30/2023 until 12/29/2024 [facility] Comment on above: 1 Occurrences starting 11/30/2023 until 12/29/2024 End: 12-29-2024 MRA Neck vessels WO and W contrast IV MRA CAROTID WO/W IVCON Radiology Routine Thunderclap headache 1 Occurrences starting 11/30/2023 until 12/29/2024 [facility] Comment on above: 1 Occurrences starting 11/30/2023 until 12/29/2024 End: 01-15-2023 NM CARDIAC PERF STRESS/PHARM NM CARDIAC PERF STRESS/PHARM Radiology Routine Coronary artery disease involving [place] coronary artery of [place] heart without angina pectoris Essential hypertension Mixed hyperlipidemia Non-rheumatic aortic stenosis HERNANDEZ (dyspnea on exertion) 1 Occurrences starting 12/16/2021 until 01/15/2023 [facility] Work Phone: Comment on above: 1 Occurrences starting 12/16/2021 until 01/15/2023 End: 06-05-2025 Screening colonoscopy COLONOSCOPY SCREENING Endoscopy Routine Screening for colon cancer Positive colorectal cancer screening using Cologuard test 1 Occurrences starting 06/05/2024 until 06/05/2025 [facility] Comment on above: 1 Occurrences starting 06/05/2024 until 06/05/2025 Tissue Pathology bio psy report [facility] Work Phone: Comment on above: Release Upon Ordering for 1 Occurrences starting 06/24/2024, 1 completed UA DIP, URINE (POC) UA DIP, URIN E (POC) Lab Routine Elevated PSA Benign prostatic hyperplasia with incomplete bladder emptying Ordered: 07/21/2024 [facility] Comment on above: Ordered: 07/21/2024 End: 08-11-2024 XR Chest PA and Lateral XR CHEST 2V FRONTAL/LAT Radiology Routine HOCM (hypertrophic obstructive cardiomyopathy) (HCC) Aortic valve stenosis, etiology of cardiac valve disease unspecified Hyperlipidemia, unspecified hyperlipidemia type Hypertension, unspecified type Controlled type 2 diabetes mellitus without complication, 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) SOB (shortness of breath) Chest pain, unspecified type Pre-operative cardiovascular examination 1 Occurrences starting 07/13/2023 until 08/11/2024 [facility] Work Phone: Comment on above: 1 Occurrences starting 07/13/2023 until 08/11/2024 End: 10-03-2024 XR Chest PA and Lateral XR CHEST 2V FRONTAL/LAT Radiology Routine S/P aortic valve replacement 1 Occurrences starting 09/04/2023 until 10/03/2024 [facility] Comment on above: 1 Occurrences starting 09/04/2023 until 10/03/2024 [facility] Immunizations Immunization Date Immunization Notes Care Provider [facility] 02-15-2024 influenza, high dose seasonal, preservative-free Denis Rivero MD Work Phone: [facility] 02-15-2024 influenza virus vaccine, unspecified formulation [facility] 02-14-2023 influenza (HD-IIV4) vaccine, age 65+ yr, high dose, quadrivalent, PF (FLUZONE HIGH-DOSE) Ophelia [facility] Work Phone: [facility] 02-14-2023 influenza virus vaccine, unspecified formulation Denis Rivero MD Work Phone: [facility] 05-31-2022 tetanus toxoid, redu chon diphtheria toxoid, and acellular pertussis vaccine, adsorbed Burke Arian DO Work Phone: [facility] 02-16-2022 influenza (HD-IIV4) vaccine, age 65+ yr, high dose, quadrivalent, PF (FLUZONE HIGH-DOSE) Rey Ordonez PA-C Work Phone: [facility] Work Phone: 02-16-2022 influenza virus vaccine, unspecified formulation Sunshine Banuelos APRN.ROUGHENER Work Phone: [facility] 11-14-2021 pneumococcal (PCV20) vaccine, 20 valent (PREVNAR 20) Denis Rivero MD Work Phone: [facility] 11-14-2021 pneumococcal Conjuga te, unspecified formulation Denis Rivero MD Work Phone: [facility] Work Phone: 02-03-2021 influenza, high-dose , quadrivalent vaccine (FLUZONE HIGH DOSE QUADRIVALENT) Lyric Harris APRN.ROUGHENER Work Phone: [facility] 10-12-2020 pneumococcal polysaccharide vaccine, 23 valent Lyric Harris HOME PERFORMANCE LABORER.ROUGHENER Work Phone: [facility] 08-12-2020 COVID-19 vaccine, fu ll dose (MODERNA) Lyric Harris HOME PERFORMANCE LABORER.ROUGHENER Work Phone: [facility] 07-06-2020 COVID-19 vaccine, fu ll dose (MODERNA) Lyric Harris HOME PERFORMANCE LABORER.ROUGHENER Work Phone: [facility] 02-06-2020 Influenza, injectabl e, Madin Ruba Canine Kidney, preservative free, quadrivalent Lyric Harris HOME PERFORMANCE LABORER.ROUGHENER Work Phone: [facility] 02-03-2019 Influenza, injectabl e, Madin Ruba Canine Kidney, quadrivalent with preservative Lyric Harris HOME PERFORMANCE LABORER.ROUGHENER Work Phone: [facility] 02-25-2018 influenza, injectabl e, quadrivalent, contains preservative Lyric Harris HOME PERFORMANCE LABORER.ROUGHENER Work Phone: [facility] 08-23-2017 tetanus toxoid, redu chon diphtheria toxoid, and acellular pertussis vaccine, adsorbed Lyric Harris HOME PERFORMANCE LABORER.ROUGHENER Work Phone: [facility] 02-15-2017 influenza, seasonal, injectable Lyric Harris HOME PERFORMANCE LABORER.ROUGHENER Work Phone: [facility] Work Phone: 02-13-2017 influenza, seasonal, injectable Lyric Harris HOME PERFORMANCE LABORER.ROUGHENER Work Phone: [facility] 03-06-2016 influenza, injectabl e, quadrivalent, contains preservative Lyric Harris HOME PERFORMANCE LABORER.ROUGHENER Work Phone: [facility] 02-16-2015 influenza, seasonal, injectable, preservative free Lyric Harris HOME PERFORMANCE LABORER.ROUGHENER Work Phone: [facility] 07-15-2014 pneumococcal polysaccharide vaccine, 23 valent Lyric Harris HOME PERFORMANCE LABORER.ROUGHENER Work Phone: [facility] 01-29-2014 influenza, seasonal, injectable Lyric Harris HOME PERFORMANCE LABORER.ROUGHENER Work Phone: [facility] 05-07-2009 novel [id number], preservative-free, injectable Lyric Harris HOME PERFORMANCE LABORER.ROUGHENER Work Phone: [facility] Payers Date Payer Category Payer Medicare [id number] 2023 Self-pay 2022 Private Health Insurance [id number] 2019 Medicare [id number] 2019 Private Health Insurance [facility] CHOICE PLUS [id number] 2019-Present [phone] [address] [place] [address] [facility] [id number] 2019 Private Health Insurance [id number] 2019 Medicare [id number] Unknown [id number] Unknown [id number] Unknown [id number] Unknown [id number] Unknown [id number] Unknown [id number] Unknown [id number] Unknown [id number] Unknown [id number] Social History Date Type Detail Facility Start: 01-22-2012 End: 07-21-2024 Tobacco smoking status NHIS Ex-smoker [facility] End: 01-21-2010 History of tobacco use Current smoker [facility] End: 01-21-2010 History of tobacco use Cigarette Smoker [facility] Start: 01-22-2012 End: 07-21-2024 Tobacco use and exposure User of smokeless tobacco [facility] History of tobacco use [facility] Start: 06-27-2021 End: 12-10-2024 Alcohol intake Current non-drinker of alcohol (finding) [facility] Start: 1955 Sex Assigned At Not on file [facility] Start: 11-04-2021 End: 03-04-2022 Exposure to SARS-CoV-2 (event) Not sure [facility] Start: 10-02-2022 Tobacco smoking stat us OKIS Unknown if ever smoked [facility] Start: 1955 Sex Assigned At Male W [facility] Start: 09-04-2022 End: 11-14-2022 History of Social function [facility] Work Phone: Start: 09-04-2022 End: 11-14-2022 Tobacco use panel [facility] Work Phone: Start: 03-24-2012 Adult Depression Screening Assessment 0 [facility] Work Phone: Start: 04-25-2023 Tobacco Comment Patient states he has been chewing since he was younger - about a half can. Patient states it is the pouch type. [facility] How often to you hav e a drink containing alcohol? Monthly or less [facility] How many standard drinks containing alcohol do you have on a typical day? 1 or 2 [facility] How often do you hav e 6 or more drinks on 1 occasion? Never [facility] NEGATED: Highlighted rowStart: HA History of tobacco use Passive smoker [facility] Medical Equipment Procedure Code Equipment Code Equipment Origin al Text Equipment Identifier Dates [id number], [id number], [id number], [id number], [id number], [id number], [id number], [id number], [id number], [id number], [id number] Start: 08-17-2017 End: 10-23-2024 Comment on above: USE AND DISCARD 1 PE N NEEDLE ONCE DAILY WITH INSULIN PEN Use as instructed to test glucose 2 times daily. Use to test blood blanchard gars with fingerstick when CGM seems inaccurate. Check up to twice daily. Insulin-dependent DM. E11.9. Use to test blood blanchard gars up to twice daily when CGM reading seems inaccurate. Insulin-dependent diabetes, E11.9 Valve Jeniffer-Arnold Perimount Magna Ease 25mm Low Profile Pericardial - [id number] Start: 08-16-2023 Goals Date Patient Goal Desired Activity /State Personal health goal Personal health goal Functional Status Date Assessment Result Facility 12-10-2024 Total score [AUDIT-C] 1 12/11/19 7:09 AM Denis Reis MD [facility] 08-21-2023 Are you deaf, or do you have serious difficulty hearing No 08/21/2023 2:23 PM Patricia Seals RN No [facility] 08-21-2023 Are you blind, or do you have serious difficulty seeing, even when wearing glasses No 08/21/2023 2:23 PM Patricia Seals RN No [facility] 08-21-2023 Do you have serious difficulty walking or climbing stairs No 08/21/2023 2:23 PM EDT Patricia Stevens, ABDIAS No [facility] 08-21-2023 Do you have difficul ty dressing or bathing No 08/21/2023 2:23 PM EDT Patricia Stevens RN No [facility] 08-21-2023 Because of a physica l, mental, or emotional condition, do you have difficulty doing errands alone such as visiting a physician's office or shopping No 08/21/2023 2:23 PM EDPatricia Lou, ABDIAS No [facility] Mental Status Date Assessment Result Facility 08-21-2023 Because of a physica l, mental, or emotional condition, do you have serious difficulty concentrating, remembering, or making decisions No 08/21/2023 2:23 PM EDT Patricia Stevens RN No [facility] Clinical Notes 08-27-2018 to 01-06-2025 Ophelia Null formerly [facility] - 01/06/2025 9:00 AM EDTPatient InstructionsPatient InstructionsDenis Rivero MD - 12/10/2024 7:01 AM Abril Zuniga MA - 12/10/2024 6:59 AM EDTPatient Instructions Note Date & Type Note Facility 01-06-2025 History of Present illness Narrative Images from the original note were not included. Primary Care Pharmacy Visit CC (Reason for Consult): (E11.9, Z79.4) Type 2 diabetes mellitus without complication, with long-term current use of insulin (HCC) (primary encounter diagnosis) Goal(s): A1c <7% Last Collaborating Provider Visit: 12/10/[address] Rivero Erik Clarke is a 69 year old male presenting for follow up visit in person. Patient consents to pharmacy collaborative practice agreement. Last Pharmacy Visit: 10/21/24 - Mounjaro increased to 15 mg weekly Interim Events: - 01/05/25 lab results - A1c 7.7%, BMP and UACR WNL HPI: Reports doing well Confirmed increasing Mounjaro to 15 mg, tolerating well States BGs have been stable lately Admits to late night snacking some nights Current DM Medications: Metformin ER 500 mg #2 twice daily Jardiance 10 mg once daily Mounjaro 15 mg once weekly on Fridays Toujeo 40 units once daily in evening Previously Trialed DM Meds: Glimepiride - changed to insulin Ilalevar Moser - can't remember why he stopped it Jardiance 25 mg - balanitis Diet Denies any recent changes GLYCEMIC CONTROL: Glucometer present at visit: Yes Hypoglycemia: No CGM Data Past medical history reviewed. ALLERGIES Allergen Reactions Verapamil Other: See Comments Severe debilitating cluster headaches Current Outpatient Medications Medication Sig Dispense Refill Insulin [place], Disposable, (BD ULTRAFINE III MINI PEN) 31 gauge x 3/16 Use to inject insulin once daily 100 each 3 chlorthalidone (HYGROTON) 25 mg tablet Take 1 tablet by mouth once daily. 90 tablet 3 tirzepatide (MOUNJARO) 15 mg/0.5 mL pen injector Inject 15 mg subcutaneously one time a week. 6 mL 4 finasteride (PROSCAR) 5 mg tablet Take 1 tablet by mouth once daily. 90 tablet 3 Lancets Use as instructed to check blood sugar twice daily (E11.9, Z79.4) 200 each 3 blood sugar diagnostic (BLOOD GLUCOSE TEST) test strip Use as instructed to check blood sugar twice daily (E11.9, Z79.4) 200 each 3 Blood-Glucose Meter Use to check blood sugar 2 times per day 1 Each 0 insulin glargine U-300 conc (TOUJEO SOLOSTAR U-300 INSULIN) 300 unit/mL (1.5 mL) Inject 40 Units subcutaneously once daily. 15 mL 3 tamsulosin (FLOMAX) 0.4 mg Take 1 capsule by mouth two times a day. 180 capsule 3 Blood-Glucose Sensor (Anne Fogarty G7 SENSOR) yesenia APPLY NEW SENSOR EVERY 10 DAYS 9 Each 4 empagliflozin (JARDIANCE) 10 mg tablet Take 1 tablet by mouth daily with breakfast. 90 tablet 3 metFORMIN ER (GLUCOPHAGE XR) 500 mg 24 hr tablet Take 2 tablets by mouth two times a day with meals. 360 tablet 3 rosuvastatin (CRESTOR) 10 mg tablet Take 1 tablet by mouth every afternoon. 90 tablet 3 carvedilol (COREG) 25 mg tablet Take 1 tablet by mouth two times a day. 180 tablet 3 lisinopril (ZESTRIL) 40 mg tablet Take 1 tablet by mouth once daily. 90 tablet 3 Blood Pressure Monitor Use to monitor blood pressure 1 Each 0 Blood-Glucose Meter,Continuous (DEXCOM G7 GENERATOR ASSEMBLER) misc Use continuously to monitor glucose, IDDM, E 11.0813 aspirin, enteric coated (ECOTRIN LOW STRENGTH) 81 mg EC tablet Take 1 tablet by mouth once daily. No current facility-administered medications for this visit. Pill bottles are not present. Adherence: denies missed doses. Rx coverage: Payor: MEDICARE / Plan: MEDICARE A AND B / Product Type: Medicare / Medications affordable? Yes PHARMACOTHERAPY PREVENTATIVE MEDS: On MARY BETH/ARB: Yes On Statin: Yes On ASA: Yes EXAM: There were no vitals taken for this visit. Last 3 Encounter BP Readings: Date: BP: 12/10/2024 119/69 08/28/2024 126/78 07/21/2024 138/83 Wt: 85 kg (187 lb 6.3 oz) BMI: 28.49 kg/(m^2) LABS: Lab Results Component Value Date HBA1C 7.7 01/05/2025 HBA1C 7.2 10/07/2024 HBA1C 7.5 06/16/2024 HBA1C 7.9 12/13/2021 HBA1C 9.1 04/05/2020 HBA1C 9.0 11/03/2019 HBA1C 8.4 03/14/2019 HBA1C 8.0 08/24/2018 Glucose 158 01/05/2025 BUN 14 01/05/2025 Creatinine 0.72 01/05/2025 Sodium 139 01/05/2025 Potassium 3.8 01/05/2025 Chloride 101 01/05/2025 CO2 23 01/05/2025 Protein, Total 7.4 06/16/2024 Albumin 4.5 06/16/2024 Calcium 9.5 01/05/2025 Alkaline Phosphatase 47 06/16/2024 Bilirubin, Total 1.4 06/16/2024 AST 19 06/16/2024 ALT 20 06/16/2024 Lab Results Component Value Date CHOL 109 01/05/2025 CHOL 146 04/05/2020 LDL 51 01/05/2025 LDL 53 04/05/2020 HDL 33 01/05/2025 HDL 31 04/05/2020 TG 144 01/05/2025 TG 310 04/05/2020 Albumin/Creat Ratio (mg/g) Date Value 01/05/2025 23 eGFR-All Other Races Date Value 06/09/2021 >60 04/05/2020 >60 . Estimated Glomerular Filtration Rate (mL/min/1.73m ) Date Value 01/05/2025 98 ASSESSMENT/PLAN: 1. Type 2 diabetes mellitus without complication, with long-term current use of insulin ([facility]) - ICD9: 250.00, V58.67, ICD10: E11.9, Z79.4 - Improving control based on CGM report, despite worsening in A1c. Occasional nocturnal hyperglycemia due to late night snacking; discussed diet modifications to improve glycemic control as patient prefers vs additional medication adjustments at this time. - Continue current medications - Statin prescribed - rosuvastatin - Blood glucose monitoring on a continuous glucose monitoring schedule - Counseled on healthy diet and regular exercise - Discussed diabetic education issues of hypoglycemic/hyperglycemic symptoms - Follow up in 3 months, sooner should any other issues arise. - Due for A1c ~04/06/25 Overdue Diabetes Health Maintenance: Up to date on diabetes-related health maintenance Follow Up: Next PCP visit: 06/18/25 Next PharmD visit: 04/07/25 Ophelia Null, PharmD, BCACP Primary Care Clinical Industrial Hygiene Manager I spent a total of 20 minutes on the date of the service which included preparing to see the patient, [id number] patient care, completing clinical documentation, counseling and educating the patient/family/caregiver, and ordering medications, tests, or procedures. documented in this encounter [facility] 01-06-2025 Instructions Ophelia Null RPh - 01/06/2025 9:00 AM EDT Get A1c done in mid March before our next appointment documented in this encounter [facility] 01-06-2025 Note HNO ID: [id number] Author: OPHELIA NULL RPh Service: ? Author Type: Pharmacist Type: Progress Notes Filed: 01/06/2025 09:23 Note Text: Primary Care Pharmacy Visit CC (Reason for Consult): (E11.9, Z79.4) Type 2 diabetes mellitus without complication, with long-term current use of insulin ([facility]) (primary encounter diagnosis) Goal(s): A1c <7% Last Collaborating Provider Visit: 12/10/[address] Mat Valencia Coco Clarke is a 69 year old male presenting for follow up visit in person. Patient consents to pharmacy collaborative practice agreement. Last Pharmacy Visit: 10/21/24 - Mounjaro increased to 15 mg weekly Interim Events: - 01/05/25 lab results - A1c 7.7%, BMP and UACR WNL HPI: Reports doing well Confirmed increasing Mounjaro to 15 mg, tolerating well States BGs have been stable lately Admits to late night snacking some nights Current DM Medications: Metformin ER 500 mg #2 twice daily Jardiance 10 mg once daily Mounjaro 15 mg once weekly on Fridays Toujeo 40 units once daily in evening Previously Trialed DM Meds: Glimepiride - changed to insulin Ariella Moser - can't remember why he stopped it Jardiance 25 mg - balanitis Diet Denies any recent changes GLYCEMIC CONTROL: Glucometer present at visit: Yes Hypoglycemia: No CGM Data Past medical history reviewed. ALLERGIES Allergen Reactions Verapamil Other: See Comments Severe debilitating cluster headaches Current Outpatient Medications Medication Sig Dispense Refill Insulin [place], Disposable, (BD ULTRAFINE III MINI PEN) 31 gauge x 3/16 Use to inject insulin once daily 100 each 3 chlorthalidone (HYGROTON) 25 mg tablet Take 1 tablet by mouth once daily. 90 tablet 3 tirzepatide (MOUNJARO) 15 mg/0.5 mL pen injector Inject 15 mg subcutaneously one time a week. 6 mL 4 finasteride (PROSCAR) 5 mg tablet Take 1 tablet by mouth once daily. 90 tablet 3 Lancets Use as instructed to check blood sugar twice daily (E11.9, Z79.4) 200 each 3 blood sugar diagnostic (BLOOD GLUCOSE TEST) test strip Use as instructed to check blood sugar twice daily (E11.9, Z79.4) 200 each 3 Blood-Glucose Meter Use to check blood sugar 2 times per day 1 Each 0 insulin glargine U-300 conc (TOUJEO SOLOSTAR U-300 INSULIN) 300 unit/mL (1.5 mL) Inject 40 Units subcutaneously once daily. 15 mL 3 tamsulosin (FLOMAX) 0.4 mg Take 1 capsule by mouth two times a day. 180 capsule 3 Blood-Glucose Sensor (DEXCOM G7 SENSOR) yesenia APPLY NEW SENSOR EVERY 10 DAYS 9 Each 4 empagliflozin (JARDIANCE) 10 mg tablet Take 1 tablet by mouth daily with breakfast. 90 tablet 3 metFORMIN ER (GLUCOPHAGE XR) 500 mg 24 hr tablet Take 2 tablets by mouth two times a day with meals. 360 tablet 3 rosuvastatin (CRESTOR) 10 mg tablet Take 1 tablet by mouth every afternoon. 90 tablet 3 carvedilol (COREG) 25 mg tablet Take 1 tablet by mouth two times a day. 180 tablet 3 lisinopril (ZESTRIL) 40 mg tablet Take 1 tablet by mouth once daily. 90 tablet 3 Blood Pressure Monitor Use to monitor blood pressure 1 Each 0 Blood-Glucose Meter,Continuous (DEXCOM G7 GENERATOR ASSEMBLER) misc Use continuously to monitor glucose, IDDM, E 11.3293 aspirin, enteric coated (ECOTRIN LOW STRENGTH) 81 mg EC tablet Take 1 tablet by mouth once daily. No current facility-administered medications for this visit. Pill bottles are not present. Adherence: denies missed doses. Rx coverage: Payor: MEDICARE / Plan: MEDICARE A AND B / Product Type: Medicare / Medications affordable? Yes PHARMACOTHERAPY PREVENTATIVE MEDS: On MARY BETH/ARB: Yes On Statin: Yes On ASA: Yes EXAM: There were no vitals taken for this visit. Last 3 Encounter BP Readings: Date: BP: 12/10/2024 119/69 08/28/2024 126/78 07/21/2024 138/83 Wt: 85 kg (187 lb 6.3 oz) BMI: 28.49 kg/(m2) LABS: Lab Results Component Value Date HBA1C 7.7 01/05/2025 HBA1C 7.2 10/07/2024 HBA1C 7.5 06/16/2024 HBA1C 7.9 12/13/2021 HBA1C 9.1 04/05/2020 HBA1C 9.0 11/03/2019 HBA1C 8.4 03/14/2019 HBA1C 8.0 08/24/2018 Glucose 158 01/05/2025 BUN 14 01/05/2025 Creatinine 0.72 01/05/2025 Sodium 139 01/05/2025 Potassium 3.8 01/05/2025 Chloride 101 01/05/2025 CO2 23 01/05/2025 Protein, Total 7.4 06/16/2024 Albumin 4.5 06/16/2024 Calcium 9.5 01/05/2025 Alkaline Phosphatase 47 06/16/2024 Bilirubin, Total 1.4 06/16/2024 AST 19 06/16/2024 ALT 20 06/16/2024 Lab Results Component Value Date CHOL 109 01/05/2025 CHOL 146 04/05/2020 LDL 51 01/05/2025 LDL 53 04/05/2020 HDL 33 01/05/2025 HDL 31 04/05/2020 TG 144 01/05/2025 TG 310 04/05/2020 Albumin/Creat Ratio (mg/g) Date Value 01/05/2025 23 eGFR-All Other Races Date Value 06/09/2021 >60 04/05/2020 >60 . Estimated Glomerular Filtration Rate (mL/min/1.73m?) Date Value 01/05/2025 98 ASSESSMENT/PLAN: 1. Type 2 diabetes mellitus without complication, with long-term current use of insulin (HCC) - ICD9: 250.00, V58.67, ICD10: E11.9, Z79.4 (more content not included)... [facility] 12-10-2024 Instructions Denis Rivero MD - 12/10/2024 7:02 AM EDT Get the shingles vaccine at the pharmacy Check blood work fasting Continue the current medications Keep follow up with specialists Follow up here in 6 months for check up and 12 months for medicare wellness exam WHAT YOU CAN DO TO PREVENT FALLS Many falls can be prevented. By making some changes, you can lower your chances of falling. Four things YOU can do to prevent falls for you* and your caregiver 1. Begin a regular exercise program Exercise is one of the most important ways to lower your chances of falling. It makes you stronger and helps you feel better. Exercises that improve balance and coordination (like [place]und Chi) are the most helpful. Lack of exercise leads to weakness and increases your chances of falling. Ask your doctor or health care provider about the best type of exercise program for you. 2. Have your health care provider review your medicines Have your doctor or pharmacist review all the medicines you take, even resc-[id number]-[id number] medicines. As you get older, the way medicines work in your body can change. Some medicines, or combinations of medicines, can make you sleepy or dizzy and can cause you to fall. 3. Have your vision checked Have your eyes checked by an eye doctor at least once a year. You may be wearing the wrong glasses or have a condition like glaucoma or cataracts that limits your vision. Poor vision can increase your chances of falling. 4. Make your home safer About half of all falls happen at home. To make your home safer: Remove things you can trip over (like papers, books, clothes, and shoes) from stairs and places where you walk. Remove small throw rugs or use double-sided tape to keep the rugs from slipping. Keep items you use often in cabinets you can reach easily without using a step stool. Have grab bars put in next to your toilet and in the tub or shower. Use non-slip mats in the bathtub and on shower floors. Improve the lighting in your home. As you get older, you need brighter lights to see well. Hang light-weight curtains or shades to reduce glare. Have handrails and lights put in on all staircases. Wear shoes both inside and outside the house. Avoid going barefoot or wearing slippers. For more information, contact: Centers for Disease Control and Prevention www.cdc.gov/injury * This information may not apply if you have certain medical conditions. documented in this encounter [facility] 12-10-2024 Note HNO ID: [id number] Author: DENIS RIVERO MD Service: ? Author Type: Physician Type: Progress Notes Filed: 12/10/2024 07:32 Note Text: Erik Clarke is a 69 year old male presenting for Medicare Wellness Exam Annual Wellness Exam: - No recent surgeries. - No known medical problems among siblings. - Denies smoking or alcohol use; uses chewing tobacco. - Denies drug use. - Has one daughter and one grandson. - Recent eye exam approximately six weeks ago; reports occasional blurry vision. - Hearing is reportedly good. - Denies neck pain, back pain, or joint pain. - Denies wheezing, coughing, or dyspnea. - Denies heartburn, belching, or bloating. - Regular bowel movements; occasional diarrhea or constipation. - Denies easy bleeding or bruising since discontinuing Brilinta in July. - Has dentures; reports issues with bottom dentures not fitting properly. Diabetes Mellitus: - Blood glucose levels average around 130 mg/dL postprandially. - Managed with TJO 40 units, Jardiance, metformin, and Mounjaro. - Follows up with [facility] for diabetes management. - Adheres to a healthy diet, monitoring sweets and carbohydrates. - Engages in regular exercise, walking approximately one mile daily. Benign Prostatic Hyperplasia: - Taking finasteride and tamsulosin; reports significant improvement in urinary symptoms. - Reduced nocturia and improved bladder emptying. Coronary Artery Disease: - Reports occasional dizziness; denies chest pain or palpitations. - Discontinued Brilinta in July; currently taking low-dose aspirin. - No recent home blood pressure monitoring. HISTORIES: PAST MEDICAL HISTORY Diagnosis Date BPH (benign prostatic hypertrophy) with urinary retention 01/22/2012 Bradycardia Coronary artery disease involving [place] coronary artery of [place] heart without angina pectoris 05/30/2019 History: s/p CATRACHITA. On Brilinta ED (erectile dysfunction) HOCM (hypertrophic obstructive cardiomyopathy) ([facility]) 05/15/2023 History: HOCM Hyperlipidemia LDL goal < 100 01/22/2012 Hypertension 01/22/2012 Nonrheumatic aortic (valve) stenosis 05/30/2019 History: Severe Obesity S/P AVR 09/18/2023 S/P myomectomy 09/18/2023 Status post insertion of drug eluting coronary artery stent 08/28/2022 Type 2 diabetes mellitus not at goal 01/22/2012 PAST SURGICAL HISTORY Procedure Laterality Date CARDIAC CATHETERIZATION HX 1999, 2004 no blockages, mildly leaky valve LEFT HEART CATH,PERCUTANEOUS 06/2022 stent placed PAST SURGICAL HISTORY OF 12/2015 L3-S1 laminectomy, decompression PAST SURGICAL HISTORY OF 01/16/2017 Lumbar reexploration L3-S1 with laminectomy and decompression FAMILY HISTORY Problem Relation Age of Onset Diabetes Mother Heart Father Diabetes Father Social History: SOCIAL HISTORY[1] Allergies: ALLERGIES Allergen Reactions Verapamil Other: See Comments Severe debilitating cluster headaches Medications: Insulin [place], Disposable, (BD ULTRAFINE III MINI PEN) 31 gauge x 3/16 Use to inject insulin once daily chlorthalidone (HYGROTON) 25 mg tablet Take 1 tablet by mouth once daily. tirzepatide (MOUNJARO) 15 mg/0.5 mL pen injector Inject 15 mg subcutaneously one time a week. finasteride (PROSCAR) 5 mg tablet Take 1 tablet by mouth once daily. Lancets Use as instructed to check blood sugar twice daily (E11.9, Z79.4) blood sugar diagnostic (BLOOD GLUCOSE TEST) test strip Use as instructed to check blood sugar twice daily (E11.9, Z79.4) Blood-Glucose Meter Use to check blood sugar 2 times per day insulin glargine U-300 conc (TOUJEO SOLOSTAR U-300 INSULIN) 300 unit/mL (1.5 mL) Inject 40 Units subcutaneously once daily. tamsulosin (FLOMAX) 0.4 mg Take 1 capsule by mouth two times a day. Blood-Glucose Sensor (DEXCOM G7 SENSOR) yesenia APPLY NEW SENSOR EVERY 10 DAYS empagliflozin (JARDIANCE) 10 mg tablet Take 1 tablet by mouth daily with breakfast. metFORMIN ER (GLUCOPHAGE XR) 500 mg 24 hr tablet Take 2 tablets by mouth two times a day with meals. rosuvastatin (CRESTOR) 10 mg tablet Take 1 tablet by mouth every afternoon. carvedilol (COREG) 25 mg tablet Take 1 tablet by mouth two times a day. lisinopril (ZESTRIL) 40 mg tablet Take 1 tablet by mouth once daily. Blood Pressure Monitor Use to monitor blood pressure Blood-Glucose Meter,Continuous (DEXCOM G7 GENERATOR ASSEMBLER) [facility] continuously to monitor glucose, IDDM, E 11.8387 aspirin, enteric coated (ECOTRIN LOW STRENGTH) 81 mg EC tablet Take 1 tablet by mouth once daily. REVIEW OF SYSTEMS GENERAL: No weight loss, malaise or fevers HEENT: Negative for frequent or significant headaches, No changes in hearing or vision, no nose bleeds or other nasal problems, does wear glasses, sees ophtho, no hearing issues, wear dentures NECK: Negative for lumps, goiter, pain and significant neck swelling RESPIRATORY: Negative for cough, hemoptysis, wheezing, COPD, dyspnea or shortness of breath (more content not included)... [facility] 12-10-2024 History of Present illness Narrative Images from the original note were not included. Erik Clarke is a 69 year old male presenting for Medicare Wellness Exam Annual Wellness Exam: - No recent surgeries. - No known medical problems among siblings. - Denies smoking or alcohol use; uses chewing tobacco. - Denies drug use. - Has one daughter and one grandson. - Recent eye exam approximately six weeks ago; reports occasional blurry vision. - Hearing is reportedly good. - Denies neck pain, back pain, or joint pain. - Denies wheezing, coughing, or dyspnea. - Denies heartburn, belching, or bloating. - Regular bowel movements; occasional diarrhea or constipation. - Denies easy bleeding or bruising since discontinuing Brilinta in July. - Has dentures; reports issues with bottom dentures not fitting properly. Diabetes Mellitus: - Blood glucose levels average around 130 mg/dL postprandially. - Managed with TJO 40 units, Jardiance, metformin, and Mounjaro. - Follows up with [facility] for diabetes management. - Adheres to a healthy diet, monitoring sweets and carbohydrates. - Engages in regular exercise, walking approximately one mile daily. Benign Prostatic Hyperplasia: - Taking finasteride and tamsulosin; reports significant improvement in urinary symptoms. - Reduced nocturia and improved bladder emptying. Coronary Artery Disease: - Reports occasional dizziness; denies chest pain or palpitations. - Discontinued Brilinta in July; currently taking low-dose aspirin. - No recent home blood pressure monitoring. HISTORIES: PAST MEDICAL HISTORY Diagnosis Date BPH (benign prostatic hypertrophy) with urinary retention 01/22/2012 Bradycardia Coronary artery disease involving [place] coronary artery of [place] heart without angina pectoris 05/30/2019 History: s/p CATRACHITA. On Brilinta ED (erectile dysfunction) HOCM (hypertrophic obstructive cardiomyopathy) (HCC) 05/15/2023 History: HOCM Hyperlipidemia LDL goal < 100 01/22/2012 Hypertension 01/22/2012 Nonrheumatic aortic (valve) stenosis 05/30/2019 History: Severe Obesity S/P AVR 09/18/2023 S/P myomectomy 09/18/2023 Status post insertion of drug eluting coronary artery stent 08/28/2022 Type 2 diabetes mellitus not at goal 01/22/2012 PAST SURGICAL HISTORY Procedure Laterality Date CARDIAC CATHETERIZATION HX 1999, 2004 no blockages, mildly leaky valve LEFT HEART CATH,PERCUTANEOUS 06/2022 stent placed PAST SURGICAL HISTORY OF 12/2015 L3-S1 laminectomy, decompression PAST SURGICAL HISTORY OF 01/16/2017 Lumbar reexploration L3-S1 with laminectomy and decompression FAMILY HISTORY Problem Relation Age of Onset Diabetes Mother Heart Father Diabetes Father Social History: SOCIAL HISTORY[1] Allergies: ALLERGIES Allergen Reactions Verapamil Other: See Comments Severe debilitating cluster headaches Medications: Insulin [place], Disposable, (BD ULTRAFINE III MINI PEN) 31 gauge x 3/16 Use to inject insulin once daily chlorthalidone (HYGROTON) 25 mg tablet Take 1 tablet by mouth once daily. tirzepatide (MOUNJARO) 15 mg/0.5 mL pen injector Inject 15 mg subcutaneously one time a week. finasteride (PROSCAR) 5 mg tablet Take 1 tablet by mouth once daily. Lancets Use as instructed to check blood sugar twice daily (E11.9, Z79.4) blood sugar diagnostic (BLOOD GLUCOSE TEST) test strip Use as instructed to check blood sugar twice daily (E11.9, Z79.4) Blood-Glucose Meter Use to check blood sugar 2 times per day insulin glargine U-300 conc (TOUJEO SOLOSTAR U-300 INSULIN) 300 unit/mL (1.5 mL) Inject 40 Units subcutaneously once daily. tamsulosin (FLOMAX) 0.4 mg Take 1 capsule by mouth two times a day. Blood-Glucose Sensor (DEXCOM G7 SENSOR) yesenia APPLY NEW SENSOR EVERY 10 DAYS empagliflozin (JARDIANCE) 10 mg tablet Take 1 tablet by mouth daily with breakfast. metFORMIN ER (GLUCOPHAGE XR) 500 mg 24 hr tablet Take 2 tablets by mouth two times a day with meals. rosuvastatin (CRESTOR) 10 mg tablet Take 1 tablet by mouth every afternoon. carvedilol (COREG) 25 mg tablet Take 1 tablet by mouth two times a day. lisinopril (ZESTRIL) 40 mg tablet Take 1 tablet by mouth once daily. Blood Pressure Monitor Use to monitor blood pressure Blood-Glucose Meter,Continuous (DEXCOM G7 GENERATOR ASSEMBLER) misc Use continuously to monitor glucose, IDDM, E 11.4723 aspirin, enteric coated (ECOTRIN LOW STRENGTH) 81 mg EC tablet Take 1 tablet by mouth once daily. REVIEW OF SYSTEMS GENERAL: No weight loss, malaise or fevers HEENT: Negative for frequent or significant headaches, No changes in hearing or vision, no nose bleeds or other nasal problems, does wear glasses, sees ophtho, no hearing issues, wear dentures NECK: Negative for lumps, goiter, pain and significant neck swelling RESPIRATORY: Negative for cough, hemoptysis, wheezing, COPD, dyspnea or shortness of breath CARDIOVASCULAR: Negative for chest pain, leg swelling, hypertension, CHF or palpitations GI: No nausea, vomiting, or diarrhea, No heartburn or reflux symptoms, and no diarrhea, constipation, no blood in the stools, bowels are regular : No history of dysuria, frequency or incontinence, occasional nocturia, no urgency or hesitancy, much improved with the Proscar MUSCULOSKELETAL: Negative for joint pain or swelling, back pain or muscle pain and occasional low back pain SKIN: Negative for lesions, rash, and itching PSYCH: Negative for sleep disturbance, mood disorder and recent psychosocial stressors HEMATOLOGY/LYMPHOLOGY: Negative for prolonged bleeding, bruising easily or swollen nodes ENDOCRINE: Negative for cold or heat intolerance, polyuria, polydipsia and goiter NEURO: No history of headaches, syncope, paralysis, seizures or tremors PHYSICAL EXAMINATION: BP 119/69 Pulse 83 Temp 36.3 C (97.3 F) Resp 16 Ht 172.7 cm (5' 8) Wt 85 kg (187 lb 6.3 oz) SpO2 97% BMI 28.49 kg/m GENERAL: NAD, alert and oriented. SKIN: Unremarkable, no rash or skin lesions. HEAD: Normocephalic. EYES: PERRLA, EOMI, conjunctiva clear. EARS: External ears normal, canals clear, TM's normal. NOSE/SINUSES: Nares normal. Septum midline. OROPHARYNX: Lips, mucosa, and tongue normal, good dentition. No oral lesions noted. NECK: Supple, no lymphadenopathy, normal thyroid, no carotid bruits. LUNGS: Clear to auscultation bilaterally, no wheezes/rhonchi/rales. HEART: Regular rate and rhythm, no murmurs. No ectopy. EXTREMITIES: Normal, no deformities, no skin discoloration, no edema. Good pulses, intact sensation. NEURO: Awake, alert and oriented x3, cranial nerves II-XII grossly intact, normal gait, no involuntary motions. General Appearance: Well appearing, alert, in no acute distress, well-hydrated, well nourished.. Head: Normocephalic, no masses, lesions, tenderness or abnormalities. Eyes: Anicteric sclera. Pupils are equally round and reactive to light. Extraocular movements are intact. . Ears: External ears normal, canals clear, TMs clear and normal-appearing bilaterally. Oropharynx: Dentures and Lips, mucosa, and tongue normal, teeth and gums normal, oropharynx normal. Neck: Supple, no adenopathy; thyroid symmetric, normal size, no bruits. Lungs: Lungs clear to auscultation. No wheezing, rhonchi, rales.. Heart: RRR without murmur, gallop, or rubs. No ectopy. Abdomen: Normal abdominal exam, Abdomen soft, non-tender. Bowel sounds normal. No masses, organomegaly. Extremities: No deformities, edema, skin discoloration, clubbing or cyanosis. Good capillary refill. . Musculoskeletal: No joint swelling, deformity, or tenderness. Peripheral Pulses: Normal. Neurologic: Gait normal. Reflexes normal and symmetric. Sensation grossly intact.. Psych: Appropriate mood and affect, maintains good eye contact, answers questions appropriately. ASSESSMENT AND PLAN: ASSESSMENT/PLAN: 1. Encounter for Medicare annual wellness exam - ICD9: V70.0, ICD10: Z00.00 (primary diagnosis) - Counseled on healthy diet and regular exercise - Discussed need for and benefit of weight loss. BMI 28.49 kg/(m^2) - Follow-up in 6 months for checkup in 12 months for Medicare wellness Check fasting blood work Recommend shingles vaccine at the pharmacy 2. Type 2 diabetes mellitus with both eyes affected 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, with long-term current use of insulin (HCC) - ICD9: 250.50, 362.04, V58.67, ICD10: E11.3293, Z79.4 Continue following with the Pharm.D. Blood sugars are doing great Tolerating medication with no issues or side effects No hypoglycemic episodes Check blood work including A1c He is up-to-date on diabetic eye exam 3. Essential hypertension - ICD9: 401.9, ICD10: I10 4. Mixed hyperlipidemia - ICD9: 272.2, ICD10: E78.2 5. Coronary artery disease involving [place] coronary artery of [place] heart without angina pectoris - ICD9: 414.01, ICD10: I25.10 6. Nonrheumatic aortic (valve) stenosis - ICD9: 424.1, ICD10: I35.0 7. S/P AVR - ICD9: V43.3, ICD10: Z95.2 8. HOCM (hypertrophic obstructive cardiomyopathy) (HCC) - ICD9: 425.11, ICD10: I42.1 9. S/P myomectomy - ICD9: V45.89, ICD10: Z98.890 Blood pressures under good control Does report some occasional lightheadedness Recommend he monitor his blood pressure to see and make sure that it is not too low Tolerating medications Reports no chest pain or palpitations Check blood work including lipid panel Continue to work on diet exercise and weight loss Continue following with cardiology 10. Benign prostatic hyperplasia with lower urinary tract symptoms, symptom details unspecified - ICD9: 600.01, ICD10: N40.1 11. Elevated PSA - ICD9: 790.93, ICD10: R97.20 Doing much better with the Proscar Continue with that as well as the Flomax Continue following with urology 12. Screening for depression - ICD9: V79.0, ICD10: Z13.31 - DEPRESSION SCREENING 13. Encounter for screening examination for other mental health and behavioral disorders - ICD9: V79.8, ICD10: Z13.39 - ANXIETY SCREENING MD Denis Kay MD Latest Ref Rng 07/03/2022 11/14/2022 12/04/2023 01/23/2024 06/16/2024 10/07/2024 Protein, Total 6.3 - 8.0 g/dL 7.5 7.4 Albumin 3.9 - 4.9 g/dL 4.7 4.5 Calcium 8.5 - 10.2 mg/dL 10.2 9.7 9.9 10.2 Bilirubin, Total 0.2 - 1.3 mg/dL 0.9 1.4 (H) Alkaline Phosphatase 38 - 113 U/L 54 47 AST 14 - 40 U/L 21 19 ALT 10 - 54 U/L 27 20 Glucose 74 - 99 mg/dL 167 (H) 169 (H) 159 (H) 157 (H) BUN 9 - 24 mg/dL 18 22 20 17 Creatinine 0.73 - 1.22 mg/dL 0.62 (L) 0.69 (L) 0.74 0.81 Sodium 136 - 144 mmol/L 138 139 139 143 Potassium 3.7 - 5.1 mmol/L 3.7 3.4 (L) 4.0 4.1 Chloride 98 - 107 mmol/L 99 99 100 104 CO2 22 - 30 mmol/L 24 26 25 28 Anion Gap 8 - 15 mmol/L 15 14 14 11 eGFR >=60 mL/min/1.73m 104 100 98 95 Cholesterol, Total <200 mg/dL 92 Triglyceride <150 mg/dL 256 (H) HDL Cholesterol >39 mg/dL 33 (L) Non HDL Cholesterol <130 mg/dL 59 Fasting Time hrs 12 VLDL Cholesterol <30 mg/dL 51 (H) TC:HDL Ratio <5.10 2.79 LDL Cholesterol, Calculated <100 mg/dL 8 LDL:HDL Ratio <2.54 0.24 Creatinine, Ur Random (UCRR) 46.8 - 314.5 mg/dL 70.9 Albumin, Urine Random mg/L 95.2 Albumin/Creat Ratio <30 mg/g 134 (H) Hemoglobin A1C 4.3 - 5.6 % 7.8 (H) 7.7 (H) 7.3 (H) 7.5 (H) 7.2 (H) Estimated Average Glucose mg/dL 177 174 163 169 160 PSA <2.60 ng/mL 4.68 (H) PSA, Percent Free % 46 CRP <0.9 mg/dL <0.3 WSR 0 - 15 mm/hr 2 PSA Screening <2.60 ng/mL 4.66 (H) Legend: (H) High (L) Low Recording using [employer] software for draft documentation of the visit was discussed with the patient/authorized surgical device sales representative; all questions welcomed and answered. Patient/authorized surgical device sales representative agreed to proceed Erik Clarke is a 69 year old male here for a Medicare wellness visit. Medicare Health Risk Assessment General Health Good Exercise: Minutes/Day 20 min Exercise: Days/Week 3 days Alcohol: Daily Use Monthly or less Alcohol: Drinks/Day 1 or 2 Alcohol: 6 or more drinks Never Feel off balance No Concerns: Teeth/Dentures No Concerns: Sexual function Yes Troubled by feelings None of the above Frequency: Eating healthy diet Several days ADLs requiring help None of the above Safety precautions in home/vehicle Yes Smoke, vape, chews tobacco No Difficulty hearing No Difficulty seeing No Current Providers Specialists: I have reviewed specialist-related care of the patient in the medical record. Medical/Family history review Reviewed and updated problem list, medical/surgical/family/social history, medications, and allergies. Opioid use review Opioid Medications (last 90 days) No data to display Anxiety/Depression screening PHQ-9 Score: 0. [place]-2 Score: 0 (Lower risk for anxiety) Recommendation: no further intervention at this time Cognitive screening Mini Cog Score: 5 Cognitive screening reviewed and No further action needed (score 3-5). Functional Observation Was the patient's Timed Up & Go test unsteady or >= 12 seconds? No Advance Care Planning Patient did not wish or was not able to name a surrogate decision maker or provide an advance care plan Measurements BP 119/69 Pulse 83 Temp 36.3 C (97.3 F) Resp 16 Ht 172.7 cm (5' 8) Wt 85 kg (187 lb 6.3 oz) SpO2 97% BMI 28.49 kg/m Vision Screening: Follows with optometry/ophthalmology Assessment/Plan Medicare annual wellness visit, subsequent (Z00.00) - Counseled on healthy diet and regular exercise - Fall avoidance information provided - Personalized prevention plan provided [1] Social History Tobacco Use Smoking status: Former Current packs/day: 0.00 Types: Cigarettes Quit date: 01/21/2010 Years since quittin.8 Passive exposure: Never Smokeless tobacco: Current Types: Chew Tobacco comments: Patient states he has been chewing since he was younger - about a half can. Patient states it is the pouch type. Vaping Use Vaping status: Never Used Substance Use Topics Alcohol use: No Drug use: No Shingrix Vaccine(1 of 2) Never done RSV Vaccine(1 - Risk 60-74 years 1-dose series) Never done Medicare Annual Wellness Visit due on 11/15/2023 Urine Albumin:Creatinine Ratio due on 12/03/2024 LDL Cholesterol due on 12/03/2024 Depression Screening due on 12/05/2024 Anxiety Screening due on 12/05/2024 documented in this encounter [facility] 12-10-2024 Note HNO ID: [id number] Author: ABRIL CHILD MA Service: ? Author Type: [employer] Type: Progress Notes Filed: 12/10/2024 07:32 Note Text: Shingrix Vaccine(1 of 2) Never done RSV Vaccine(1 - Risk 60-74 years 1-dose series) Never done Medicare Annual Wellness Visit due on 11/15/2023 Urine Albumin:Creatinine Ratio due on 12/03/2024 LDL Cholesterol due on 12/03/2024 Depression Screening due on 12/05/2024 Anxiety Screening due on 12/05/2024 [facility] 11-25-2024 Note Patient Outreach (IN [facility]) ERIK CLARKE ([id number]) 1955 M Date Time Provider Department 11/25/24 DENIS RIVERO During your visit today, we recorded the following information about you: Allergies As of Date: 11/25/2024 Noted Allergy Reaction VERAPAMIL 02/28/2024 14 - Other: See Comments Comments: Severe debilitating cluster headaches Date Reviewed: 10/21/2024 Reviewed by: Ophelia Null formerly [facility] - Fully Assessed Visit Diagnoses:Diabetes mellitus type 1, controlled, without complications (HCC) [E10.9] Hyperlipidemia [E78.5] Order(s):ALBUMIN/CREATININE RATIO, URINE [SQUACR] Order #: [id number] FUTURE LIPID PANEL, FASTING [SQLIPB] Order #: [id number] FUTURE COMPLETE BLOOD COUNT [SQCBC] Order #: [id number] FUTURE Prescriptions as of 11/28/2024 - Insulin [place], Disposable, (BD ULTRAFINE III MINI PEN) 31 gauge x 3/16 Use to inject insulin once daily - chlorthalidone (HYGROTON) 25 mg tablet Take 1 tablet by mouth once daily. - tirzepatide (MOUNJARO) 15 mg/0.5 mL pen injector Inject 15 mg subcutaneously one time a week. - finasteride (PROSCAR) 5 mg tablet Take 1 tablet by mouth once daily. - Lancets Use as instructed to check blood sugar twice daily (E11.9, Z79.4) - blood sugar diagnostic (BLOOD GLUCOSE TEST) test strip Use as instructed to check blood sugar twice daily (E11.9, Z79.4) - Blood-Glucose Meter Use to check blood sugar 2 times per day - insulin glargine U-300 conc (TOUJEO SOLOSTAR U-300 INSULIN) 300 unit/mL (1.5 mL) Inject 40 Units subcutaneously once daily. - tamsulosin (FLOMAX) 0.4 mg Take 1 capsule by mouth two times a day. - Blood-Glucose Sensor (DEXCOM G7 SENSOR) yesenia APPLY NEW SENSOR EVERY 10 DAYS - empagliflozin (JARDIANCE) 10 mg tablet Take 1 tablet by mouth daily with breakfast. - metFORMIN ER (GLUCOPHAGE XR) 500 mg 24 hr tablet Take 2 tablets by mouth two times a day with meals. - rosuvastatin (CRESTOR) 10 mg tablet Take 1 tablet by mouth every afternoon. - carvedilol (COREG) 25 mg tablet Take 1 tablet by mouth two times a day. - lisinopril (ZESTRIL) 40 mg tablet Take 1 tablet by mouth once daily. - ticagrelor (BRILINTA) 90 mg tablet Take 1 tablet by mouth two times a day. - Blood Pressure Monitor Use to monitor blood pressure - Blood-Glucose Meter,Continuous (DEXCOM G7 GENERATOR ASSEMBLER) [facility] [place] to monitor glucose, IDDM, E 11.3295 - aspirin, enteric coated (ECOTRIN LOW STRENGTH) 81 mg EC tablet Take 1 tablet by mouth once daily. Problem List As Of Date 11/25/2024 Noted Resolved Type 2 diabetes mellitus with both eyes affecte*01/22/2012 Essential hypertension [I10] 01/22/2012 Hyperlipidemia [E78.5] 01/22/2012 Benign prostatic hyperplasia with lower urinary*01/22/2012 Colon polyps [K63.5] 07/15/2014 Other and unspecified angina pectoris [I20.9] 07/15/2014 10/12/2020 Erectile dysfunction [N52.9] 08/26/2014 Prolapsed lumbar disc [M51.26] 01/19/2017 Stable angina (HCC) [I20.89] 11/13/2017 Chewing tobacco nicotine dependence without com*08/27/2018 Lumbar spondylosis [M47.816] 08/27/2018 DDD (degenerative disc disease), lumbar [M51.36*08/27/2018 Lumbar radiculopathy [M54.16] 08/27/2018 Abnormal finding on echocardiogram [R93.1] 08/27/2018 10/12/2020 Heart murmur [R01.1] 08/27/2018 05/30/2019 Bradycardia [R00.1] 04/22/2019 08/17/2023 Nicotine use disorder, F17.2 [F17.200] 04/23/2019 Nonrheumatic aortic (valve) stenosis [I35.0] 05/30/2019 Coronary artery disease involving [place]*05/30/2019 Rotator cuff syndrome of left shoulder [M75.102]01/28/2020 Status post insertion of drug eluting coronary *08/28/2022 HOCM (hypertrophic obstructive cardiomyopathy) *05/15/2023 Discharge planning issues [Z75.8] 08/14/2023 Encounter for support and coordination of trans*08/14/2023 Post-op pain [G89.18] 08/16/2023 Hypovolemia [E86.1] 08/16/2023 Atelectasis [J98.11] 08/17/2023 Delirium [R41.0] 08/17/2023 Diabetes mellitus type 1, controlled, without c*08/18/2023 Hypervolemia [E87.70] 08/18/2023 S/P myomectomy [Z98.890] 09/18/2023 S/P AVR [Z95.2] 09/18/2023 Primary hypertension [I10] 09/18/2023 Elevated PSA [R97.20] 07/21/2024 Encounter Status:Closed by ANGELICA PRODUSER on 11/28/24 [facility] 10-29-2024 Telephone encounter Note Received 10-29-24 from ness vail. Placed in provider's inbox for review. Route to MA scanning [facility] 10-29-2024 Miscellaneous Notes Received 10-29-24 from nessdavid vail. Placed in provider's inbox for review. Route to MA scanning documented in this encounter [facility] 10-23-2024 Telephone encounter Note Patient called and LMOM for PharmD requesting refill for pen needles Patient's request for medication is as follows: Requested Prescriptions Signed Prescriptions Disp Refills Insulin [place], Disposable, (BD ULTRAFINE III MINI PEN) 31 gauge x 3/16 100 each 3 Sig: Use to inject insulin once daily Authorizing Provider: DENIS RIVERO Ordering User: OPHELIA NULL PharmD, VESTA Primary Care Clinical Industrial Hygiene Manager [facility] Work Phone: 10-23-2024 Miscellaneous Notes Patient called and LMOM for PharmD requesting refill for pen needles Patient's request for medication is as follows: Requested Prescriptions Signed Prescriptions Disp Refills Insulin [place], Disposable, (BD ULTRAFINE III MINI PEN) 31 gauge x 3/16 100 each 3 Sig: Use to inject insulin once daily Authorizing Provider: DENIS RIVERO Ordering User: OPHELIA NULL PharmD, VESTA Primary Care Clinical Industrial Hygiene Manager documented in this encounter [facility] 10-21-2024 History of Present illness Narrative Images from the original note were not included. Primary Care Pharmacy Visit CC (Reason for Consult): (E11.9, Z79.4) Type 2 diabetes mellitus without complication, with long-term current use of insulin ([facility]) (primary encounter diagnosis) Goal(s): A1c <7% Last Collaborating Provider Visit: 06/05/[address] Mat Valencia Coco Clarke is a 68 year old male presenting for follow up visit in person. Patient consents to pharmacy collaborative practice agreement. Last Pharmacy Visit: 09/16/24 Interim Events: - 10/08/24 A1c results: 7.2% HPI: Reports doing well Tolerating Mounjaro well overall Noticed a change in BGs when he had started the 12.5 mg dose, notices a little higher readings by following Sunday/ when he's about due for the next week's dose Has been snacking in the middle of the night, had peach cobbler last night States he has been taking a full tablet of chlorthalidone instead of a half tablet. Reports BP has been good at home. States he thinks he's been doing this for at least 3 months now Current DM Medications: Metformin ER 500 mg #2 twice daily Jardiance 10 mg once daily Mounjaro 12.5 mg once weekly on Fridays Toujeo 40 units once daily in evening Previously Trialed DM Meds: Glimepiride - changed to insulin Ariella Moser - can't remember why he stopped it Jardiance 25 mg - balanitis Diet Denies any recent changes BLOOD PRESSURE CONTROL: Home BPs in 120s/75 GLYCEMIC CONTROL: Glucometer present at visit: Yes Hypoglycemia: No CGM Data Past medical history reviewed. ALLERGIES Allergen Reactions Verapamil Other: See Comments Severe debilitating cluster headaches Current Outpatient Medications Medication Sig Dispense Refill finasteride (PROSCAR) 5 mg tablet Take 1 tablet by mouth once daily. 90 tablet 3 Lancets Use as instructed to check blood sugar twice daily (E11.9, Z79.4) 200 each 3 blood sugar diagnostic (BLOOD GLUCOSE TEST) test strip Use as instructed to check blood sugar twice daily (E11.9, Z79.4) 200 each 3 Blood-Glucose Meter Use to check blood sugar 2 times per day 1 Each 0 tirzepatide (MOUNJARO) 12.5 mg/0.5 mL pen injector Inject 12.5 mg subcutaneously one time a week. 6 mL 1 insulin glargine U-300 conc (TOUJEO SOLOSTAR U-300 INSULIN) 300 unit/mL (1.5 mL) Inject 40 Units subcutaneously once daily. 15 mL 3 tamsulosin (FLOMAX) 0.4 mg Take 1 capsule by mouth two times a day. 180 capsule 3 Blood-Glucose Sensor (DEXCOM G7 SENSOR) yesenia APPLY NEW SENSOR EVERY 10 DAYS 9 Each 4 empagliflozin (JARDIANCE) 10 mg tablet Take 1 tablet by mouth daily with breakfast. 90 tablet 3 Insulin [place], Disposable, (BD ULTRAFINE III MINI PEN) 31 gauge x 3/16 Use to inject insulin once daily 100 Each 3 metFORMIN ER (GLUCOPHAGE XR) 500 mg 24 hr tablet Take 2 tablets by mouth two times a day with meals. 360 tablet 3 rosuvastatin (CRESTOR) 10 mg tablet Take 1 tablet by mouth every afternoon. 90 tablet 3 carvedilol (COREG) 25 mg tablet Take 1 tablet by mouth two times a day. 180 tablet 3 chlorthalidone (HYGROTON) 25 mg tablet Take 0.5 tablets by mouth once daily. 45 tablet 2 lisinopril (ZESTRIL) 40 mg tablet Take 1 tablet by mouth once daily. 90 tablet 3 ticagrelor (BRILINTA) 90 mg tablet Take 1 tablet by mouth two times a day. (Patient not taking: Reported on 10/08/2024) 180 tablet 3 Blood Pressure Monitor Use to monitor blood pressure 1 Each 0 Blood-Glucose Meter,Continuous (DEXCOM G7 GENERATOR ASSEMBLER) misc Use continuously to monitor glucose, IDDM, E 11.3293 aspirin, enteric coated (ECOTRIN LOW STRENGTH) 81 mg EC tablet Take 1 tablet by mouth once daily. No current facility-administered medications for this visit. Pill bottles are not present. Adherence: denies missed doses. Rx coverage: Payor: MEDICARE / Plan: MEDICARE A AND B / Product Type: Medicare / Medications affordable? Yes PHARMACOTHERAPY PREVENTATIVE MEDS: On MARY BETH/ARB: Yes On Statin: Yes On ASA: Yes EXAM: There were no vitals taken for this visit. Last 3 Encounter BP Readings: Date: BP: 08/28/2024 126/78 07/21/2024 138/83 06/24/2024 91/53 Wt: 86.2 kg (190 lb) BMI: 28.89 kg/(m^2) LABS: Lab Results Component Value Date HBA1C 7.2 10/07/2024 HBA1C 7.5 06/16/2024 HBA1C 7.3 01/23/2024 HBA1C 7.9 12/13/2021 HBA1C 9.1 04/05/2020 HBA1C 9.0 11/03/2019 HBA1C 8.4 03/14/2019 HBA1C 8.0 08/24/2018 Glucose 157 06/16/2024 BUN 17 06/16/2024 Creatinine 0.81 06/16/2024 Sodium 143 06/16/2024 Potassium 4.1 06/16/2024 Chloride 104 06/16/2024 CO2 28 06/16/2024 Protein, Total 7.4 06/16/2024 Albumin 4.5 06/16/2024 Calcium 10.2 06/16/2024 Alkaline Phosphatase 47 06/16/2024 Bilirubin, Total 1.4 06/16/2024 AST 19 06/16/2024 ALT 20 06/16/2024 Lab Results Component Value Date CHOL 92 12/04/2023 CHOL 146 04/05/2020 LDL 8 12/04/2023 LDL 53 04/05/2020 HDL 33 12/04/2023 HDL 31 04/05/2020 TG 256 12/04/2023 TG 310 04/05/2020 Albumin/Creat Ratio (mg/g) Date Value 12/04/2023 134 (H) eGFR-All Other Races Date Value 06/09/2021 >60 04/05/2020 >60 . Estimated Glomerular Filtration Rate (mL/min/1.73m ) Date Value 06/16/2024 95 ASSESSMENT/PLAN: 1. Type 2 diabetes mellitus without complication, with long-term current use of insulin ([facility]) - ICD9: 250.00, V58.67, ICD10: E11.9, Z79.4 - Improving control - Increase Mounjaro to 15 mg once weekly - Continue all other medications as currently prescribed - Statin prescribed - rosuvastatin - Blood glucose monitoring on a continuous glucose monitoring schedule - Counseled on healthy diet and regular exercise - Discussed diabetic education issues of hypoglycemic/hyperglycemic symptoms and medication-specific side effects and monitoring - Follow up in 2 months, sooner should any other issues arise. - Due for A1c ~01/07/25 2. Primary hypertension - ICD9: 401.9, ICD10: I10 - Home blood pressure readings controlled - Continue current medications (updated chlorthalidone dose to 25 mg once daily, as patient has been taking) - Recommend home blood pressure monitoring, to bring results to next visit - Encouraged sodium restriction, DASH or Mediterranean diet - Recommend regular aerobic exercise - Due for repeat BMP Overdue Diabetes Health Maintenance: Health Maintenance - Diabetes Topic Date Due Dilated Retinal Exam 11/15/2024 Follow Up: Next PCP visit: 12/10/24 Next PharmD visit: 01/06/25 Ophelia Null PharmD, BCACP Primary Care Clinical Industrial Hygiene Manager I spent a total of 30 minutes on the date of the service which included preparing to see the patient, [id number] patient care, completing clinical documentation, counseling and educating the patient/family/caregiver, and ordering medications, tests, or procedures. documented in this encounter [facility] 10-21-2024 Instructions Ophelia Null RPh - 10/21/2024 9:00 AM EDT Increase Mounjaro to 15 mg once weekly Continue chlorthalidone 25 mg once daily Get labwork done documented in this encounter [facility] 10-21-2024 Note HNO ID: [id number] Author: OPHELIA NULL RPh Service: ? Author Type: Pharmacist Type: Progress Notes Filed: 10/21/2024 09:33 Note Text: Primary Care Pharmacy Visit CC (Reason for Consult): (E11.9, Z79.4) Type 2 diabetes mellitus without complication, with long-term current use of insulin (HCC) (primary encounter diagnosis) Goal(s): A1c <7% Last Collaborating Provider Visit: 06/05/[address] Mat Valencia Coco Clarke is a 68 year old male presenting for follow up visit in person. Patient consents to pharmacy collaborative practice agreement. Last Pharmacy Visit: 09/16/24 Interim Events: - 10/08/24 A1c results: 7.2% HPI: Reports doing well Tolerating Mounjaro well overall Noticed a change in BGs when he had started the 12.5 mg dose, notices a little higher readings by following Sunday/ when he's about due for the next week's dose Has been snacking in the middle of the night, had peach cobbler last night States he has been taking a full tablet of chlorthalidone instead of a half tablet. Reports BP has been good at home. States he thinks he's been doing this for at least 3 months now Current DM Medications: Metformin ER 500 mg #2 twice daily Jardiance 10 mg once daily Mounjaro 12.5 mg once weekly on Fridays Toujeo 40 units once daily in evening Previously Trialed DM Meds: Glimepiride - changed to insulin Ariella Moser - can't remember why he stopped it Jardiance 25 mg - balanitis Diet Denies any recent changes BLOOD PRESSURE CONTROL: Home BPs in 120s/75 GLYCEMIC CONTROL: Glucometer present at visit: Yes Hypoglycemia: No CGM Data Past medical history reviewed. ALLERGIES Allergen Reactions Verapamil Other: See Comments Severe debilitating cluster headaches Current Outpatient Medications Medication Sig Dispense Refill finasteride (PROSCAR) 5 mg tablet Take 1 tablet by mouth once daily. 90 tablet 3 Lancets Use as instructed to check blood sugar twice daily (E11.9, Z79.4) 200 each 3 blood sugar diagnostic (BLOOD GLUCOSE TEST) test strip Use as instructed to check blood sugar twice daily (E11.9, Z79.4) 200 each 3 Blood-Glucose Meter Use to check blood sugar 2 times per day 1 Each 0 tirzepatide (MOUNJARO) 12.5 mg/0.5 mL pen injector Inject 12.5 mg subcutaneously one time a week. 6 mL 1 insulin glargine U-300 conc (TOUJEO SOLOSTAR U-300 INSULIN) 300 unit/mL (1.5 mL) Inject 40 Units subcutaneously once daily. 15 mL 3 tamsulosin (FLOMAX) 0.4 mg Take 1 capsule by mouth two times a day. 180 capsule 3 Blood-Glucose Sensor (DEXCOM G7 SENSOR) yesenia APPLY NEW SENSOR EVERY 10 DAYS 9 Each 4 empagliflozin (JARDIANCE) 10 mg tablet Take 1 tablet by mouth daily with breakfast. 90 tablet 3 Insulin [place], Disposable, (BD ULTRAFINE III MINI PEN) 31 gauge x 3/16 Use to inject insulin once daily 100 Each 3 metFORMIN ER (GLUCOPHAGE XR) 500 mg 24 hr tablet Take 2 tablets by mouth two times a day with meals. 360 tablet 3 rosuvastatin (CRESTOR) 10 mg tablet Take 1 tablet by mouth every afternoon. 90 tablet 3 carvedilol (COREG) 25 mg tablet Take 1 tablet by mouth two times a day. 180 tablet 3 chlorthalidone (HYGROTON) 25 mg tablet Take 0.5 tablets by mouth once daily. 45 tablet 2 lisinopril (ZESTRIL) 40 mg tablet Take 1 tablet by mouth once daily. 90 tablet 3 ticagrelor (BRILINTA) 90 mg tablet Take 1 tablet by mouth two times a day. (Patient not taking: Reported on 10/08/2024) 180 tablet 3 Blood Pressure Monitor Use to monitor blood pressure 1 Each 0 Blood-Glucose Meter,Continuous (DEXCOM G7 GENERATOR ASSEMBLER) [facility] [place] continuously to monitor glucose, IDDM, E 11.3293 aspirin, enteric coated (ECOTRIN LOW STRENGTH) 81 mg EC tablet Take 1 tablet by mouth once daily. No current facility-administered medications for this visit. Pill bottles are not present. Adherence: denies missed doses. Rx coverage: Payor: MEDICARE / Plan: MEDICARE A AND B / Product Type: Medicare / Medications affordable? Yes PHARMACOTHERAPY PREVENTATIVE MEDS: On MARY BETH/ARB: Yes On Statin: Yes On ASA: Yes EXAM: There were no vitals taken for this visit. Last 3 Encounter BP Readings: Date: BP: 08/28/2024 126/78 07/21/2024 138/83 06/24/2024 91/53 Wt: 86.2 kg (190 lb) BMI: 28.89 kg/(m2) LABS: Lab Results Component Value Date HBA1C 7.2 10/07/2024 HBA1C 7.5 06/16/2024 HBA1C 7.3 01/23/2024 HBA1C 7.9 12/13/2021 HBA1C 9.1 04/05/2020 HBA1C 9.0 11/03/2019 HBA1C 8.4 03/14/2019 HBA1C 8.0 08/24/2018 Glucose 157 06/16/2024 BUN 17 06/16/2024 Creatinine 0.81 06/16/2024 Sodium 143 06/16/2024 Potassium 4.1 06/16/2024 Chloride 104 06/16/2024 CO2 28 06/16/2024 Protein, Total 7.4 06/16/2024 Albumin 4.5 06/16/2024 Calcium 10.2 06/16/2024 Alkaline Phosphatase 47 06/16/2024 Bilirubin, Total 1.4 06/16/2024 AST 19 06/16/2024 ALT 20 06/16/2024 Lab Results Component Value Date CHOL 92 12/04/2023 CHOL 146 04/05/2020 LDL 8 12/04/2023 LDL 53 1 (more content not included)... [facility] 10-08-2024 Instructions Jun Goncalves MD - 10/08/2024 4:10 PM EDT The drug you're being put on is FINASTERIDE It is used to treat Benign Prostatic Hyperplasia (BPH), otherwise known as an enlarged prostate. It is used to shrink the prostate in about 6 months. It can help to ease the symptoms if you have difficulty urinating. I discussed the implications of an elevated total PSA value. I discussed possible causes of elevated, including BPH, prostatitis and prostate cancer. I also discussed causes of false elevations of PSA values, including sexual activity, bicycle/motorcycle riding, vigorous exercise, and taking vitamins containing biotin 48-72 hours prior to PSA test.We talked about approaches which would include surveillance with PSA rechecks at regular intervals, MRI of prostate followed by biopsy, Transperineal biopsy, or standard TRUS Bx. After discussing the pros and cons of each approach we decided to proceed with Free PSA The below table lists the probability of finding prostate cancer upon needle biopsy, for men 50 years or older and total PSA concentrations from 4.0-10.0 ng/mL. Results should be interpreted within the broader clinical context. Free PSA(%) 50-59 years 60-69 years >69 years <11 49.2% 57.5% 64.5% 11-18 26.9% 33.9% 40.8% 19-25 18.3% 23.9% 29.7% >25 9.1% 12.2% 15.8% The following ED Treatment options were discussed in detail: ED has many causes which may include Diabetes, Heart Disease, Prostate Cancer treatment, and emotional conditions such as Depression/Anxiety. Oral Medications: Most men with ED start with pills, such as Sildenafil (Viagra), tadalafil (Cialis), Levitra, Stendra. These are in the drug class called PDE-5 inhibitors These may improve blood flow to the penis, and with sexual stimulation, can help you achieve an erection. 2.. Vacuum Erection Devices: Mechanical pumps that help to bring blood flow into the penis, used with a ring placed at the base of the penis, can help to maintain an erection. 3. Intraurethral Suppositories: These medications (alprostadil, etc.) are placed into the urethra of the penis and dissolve inside to generate blood flow and cause an erection.may be combined and injected directly into the base or side of the penis. The recommended frequency of injection is no more than three times weekly, and should produce an erection in 5-20 minutes. 4. Penile Injections: These medications (alprostadil, papaverine, etc.) may be injected into the base of the penis to create an erection that usually last 5-20 minutes. 5. Low intensity Shockwave Therapy (LiST): involved painless shockwaves that are applied to sides of the penis once weekly for 6 weeks. This is non-FDA approved at this time and there is an out of pocket cost of $1800. Similar procedures have been used in other medical conditions to treat heart disease and joint disease. 6. Penile Implant: IPP: Intrapenile Prosthesis allows for direct control of both the timing and duration of an erection.The 3-piece system includes a reservoir placed in the abdomen and two fluid filled cylinders completely concealed within the penis. Squeezing the pump in the scrotum is used to achieve an erection. documented in this encounter [facility] 10-08-2024 Note HNO ID: [id number] Author: JUN GONCALVES MD Service: ? Author Type: Physician Type: Progress Notes Filed: 11/16/2024 17:53 Note Text: going space this past 98 holding someone's face and so after that I last people have reached out to me asking for much of what still you know a lot of times you amelialukasz [facility] UROLOGY ESTABLISHED PATIENT CLINIC NOTE UROL [facility] PATIENT INFO: Erik Clarke AGE: [age] year old PCP: Denis Rivero MD Referring provider: Stevie Montiel APRN.CNP.[facility] IMPRESSION/PLAN: 1. Elevated PSA - ICD9: 790.93, ICD10: R97.20 (primary diagnosis) -Moderate elevation however patient has not had annual testing over the past 6 years until just recently. Recommend repeating tests in 4 months 2. Benign prostatic hyperplasia with incomplete bladder emptying - ICD9: 600.01, 788.21, ICD10: N40.1, R39.14 - Patient continues to be symptomatic despite being on tamsulosin. Mild degree of urinary retention. Will add finasteride 5 mg daily due to overall enlargement prostate and known symptoms. Hoping size reduction will reduce retention. 3. Screening for genitourinary condition - ICD9: V81.6, ICD10: Z13.89 REASON FOR VISIT: Follow up HPI: Erik Clarke returns for continuing evaluation and management. Previously under the care of urology ROUGHENER was recommended transfer of care to me. Elevated PSA: - Recent PSA levels: 4.66 (3 months ago), 4.68 (yesterday). - Previous PSA level 6 years ago was 2.32. - Under the care of urology; previously had hematuria, which resolved without a known cause. - History of a kidney stone in the left ureter, a thickened bladder, and an enlarged prostate. Underwent cystoscopy in April 2020. -Cysto in 2020, Trilobar hypertrophy - Currently taking tamsulosin BID since June, with slight improvement in urinary symptoms. - Denies any previous surgeries, including hernia repairs. INTERNATIONAL PROSTATE SYMPTOM SCORE (I-PSS) 1)INCOMPLETE EMPTYING Over the past month, how often have you had a sensation of not emptying your bladder completely after you finished urinating? SCORE: 3- About half the time 2)FREQUENCY Over the past month, how often have you had to urinate again less than two hours after you finished urinating? SCORE: 2- less than half the time 3)INTERMITTENCY Over the past month, how often have you found you stopped and started again several times when you urinated? SCORE: 2- less than half the time 4)URGENCY Over the past month, how often have you found it difficult to postpone urination? SCORE: 1- Less than 1 time in 5 5)WEAK STREAM Over the past month, how often have you had a weak stream? SCORE: 2- less than half the time 6)STRAINING Over the past month, how often have you had to push or strain to begin urination SCORE: 0- Not at all 7)NOCTURIA Over the past month, how many times did you most typically get up to urinate from the time you went to bed at night until the time you get up in the morning? SCORE:1 TOTAL I-PSS SCORE: 11 QUALITY OF LIFE DUE TO URINARY SYMPTOMS If you were to spend the rest of yur life with your urinary condition just the way it is now, how would you feel about that? 2- Mostly Satisfied UROLOGICAL DATA: Urinalysis: GLUCOSE UA (POCT) 500 10/08/2024 BILIRUBIN UA (POCT) Negative 10/08/2024 KETONE UA (POCT) Negative 10/08/2024 SPECIFIC GRAVITY UA (POCT) 1.015 10/08/2024 HEMOGLOBIN/BLOOD UA (POCT) Negative 10/08/2024 PH UA (POCT) 6.0 10/08/2024 PROTEIN UA (POCT) Negative 10/08/2024 UROBILINOGEN UA (POCT) 0.2 10/08/2024 NITRITE UA (POCT) Negative 10/08/2024 LEUKOCYTES UA (POCT) Negative 10/08/2024 COLOR UA (POCT) Yellow 10/08/2024 CLARITY UA (POCT) Clear 10/08/2024 Post Void Residual, Ultrasound: 290 cc, emptied well, emptying inadequetly OTHER DATA: PSA (ng/mL) Date Value 10/07/2024 4.68 04/21/2020 3.88 PSA Screening Date Value 06/16/2024 4.66 ng/mL 08/24/2017 2.32 ng/mL 01/22/2012 1.50 ng/mL 02/17/2009 1.3 NG/ML PSA, Percent Free (%) Date Value 10/07/2024 46 No results found for: ISOPSA Creatinine Date Value Ref Range Status 06/16/2024 0.81 0.73 - 1.22 mg/dL Final 01/23/2024 0.74 0.73 - 1.22 mg/dL Final 12/04/2023 0.69 (L) 0.73 - 1.22 mg/dL Final 11/18/2023 0.53 (L) 0.73 - 1.22 mg/dL Final Testosterone (ng/dL) Date Value 03/04/2022 277 SH: Current [place], [place] PMHx/PSHx: see above, otherwise unchanged Rx: reviewed and unchanged ROS: see above, otherwise unchanged Labs: None Imaging: None MEDICATIONS: Current Outpatient Medications Medication Sig Lancets Use as instructed to check blood sugar twice daily (E11.9, Z79.4) blood sugar diagnostic (BLOOD GLUCOSE TEST) test strip Use as instructed to check blood sugar twice daily (E11.9, Z79.4) Blood-Glucose Meter Use to check blood sugar 2 times per day tirzepatide (MOUNJARO) 12.5 mg/0.5 mL pen injector Injec (more content not included)... [facility] 10-08-2024 History of Present illness Narrative Images from the original note were not included. going space this past 98 holding someone's face and so after that I last people have reached out to me asking for much of what still you know a lot of times you shincassandra [facility] UROLOGY ESTABLISHED PATIENT CLINIC NOTE UROL [facility] PATIENT INFO: Erik Clarke AGE: [age] year old PCP: Denis Rivero MD Referring provider: Stevie Montiel APRN.ROUGHENER.DNP IMPRESSION/PLAN: 1. Elevated PSA - ICD9: 790.93, ICD10: R97.20 (primary diagnosis) -Moderate elevation however patient has not had annual testing over the past 6 years until just recently. Recommend repeating tests in 4 months 2. Benign prostatic hyperplasia with incomplete bladder emptying - ICD9: 600.01, 788.21, ICD10: N40.1, R39.14 - Patient continues to be symptomatic despite being on tamsulosin. Mild degree of urinary retention. Will add finasteride 5 mg daily due to overall enlargement prostate and known symptoms. Hoping size reduction will reduce retention. 3. Screening for genitourinary condition - ICD9: V81.6, ICD10: Z13.89 REASON FOR VISIT: Follow up HPI: Erik Clarke returns for continuing evaluation and management. Previously under the care of urology ROUGHENER was recommended transfer of care to me. Elevated PSA: - Recent PSA levels: 4.66 (3 months ago), 4.68 (yesterday). - Previous PSA level 6 years ago was 2.32. - Under the care of urology; previously had hematuria, which resolved without a known cause. - History of a kidney stone in the left ureter, a thickened bladder, and an enlarged prostate. Underwent cystoscopy in April 2020. -Cysto in 2020, Trilobar hypertrophy - Currently taking tamsulosin BID since June, with slight improvement in urinary symptoms. - Denies any previous surgeries, including hernia repairs. INTERNATIONAL PROSTATE SYMPTOM SCORE (I-PSS) 1)INCOMPLETE EMPTYING Over the past month, how often have you had a sensation of not emptying your bladder completely after you finished urinating? SCORE: 3- About half the time 2)FREQUENCY Over the past month, how often have you had to urinate again less than two hours after you finished urinating? SCORE: 2- less than half the time 3)INTERMITTENCY Over the past month, how often have you found you stopped and started again several times when you urinated? SCORE: 2- less than half the time 4)URGENCY Over the past month, how often have you found it difficult to postpone urination? SCORE: 1- Less than 1 time in 5 5)WEAK STREAM Over the past month, how often have you had a weak stream? SCORE: 2- less than half the time 6)STRAINING Over the past month, how often have you had to push or strain to begin urination SCORE: 0- Not at all 7)NOCTURIA Over the past month, how many times did you most typically get up to urinate from the time you went to bed at night until the time you get up in the morning? SCORE:1 TOTAL I-PSS SCORE: 11 QUALITY OF LIFE DUE TO URINARY SYMPTOMS If you were to spend the rest of yur life with your urinary condition just the way it is now, how would you feel about that? 2- Mostly Satisfied UROLOGICAL DATA: Urinalysis: GLUCOSE UA (POCT) 500 10/08/2024 BILIRUBIN UA (POCT) Negative 10/08/2024 KETONE UA (POCT) Negative 10/08/2024 SPECIFIC GRAVITY UA (POCT) 1.015 10/08/2024 HEMOGLOBIN/BLOOD UA (POCT) Negative 10/08/2024 PH UA (POCT) 6.0 10/08/2024 PROTEIN UA (POCT) Negative 10/08/2024 UROBILINOGEN UA (POCT) 0.2 10/08/2024 NITRITE UA (POCT) Negative 10/08/2024 LEUKOCYTES UA (POCT) Negative 10/08/2024 COLOR UA (POCT) Yellow 10/08/2024 CLARITY UA (POCT) Clear 10/08/2024 Post Void Residual, Ultrasound: 290 cc, emptied well, emptying inadequetly OTHER DATA: PSA (ng/mL) Date Value 10/07/2024 4.68 04/21/2020 3.88 PSA Screening Date Value 06/16/2024 4.66 ng/mL 08/24/2017 2.32 ng/mL 01/22/2012 1.50 ng/mL 02/17/2009 1.3 NG/ML PSA, Percent Free (%) Date Value 10/07/2024 46 No results found for: ISOPSA Creatinine Date Value Ref Range Status 06/16/2024 0.81 0.73 - 1.22 mg/dL Final 01/23/2024 0.74 0.73 - 1.22 mg/dL Final 12/04/2023 0.69 (L) 0.73 - 1.22 mg/dL Final 11/18/2023 0.53 (L) 0.73 - 1.22 mg/dL Final Testosterone (ng/dL) Date Value 03/04/2022 277 SH: Current [place], [place] PMHx/PSHx: see above, otherwise unchanged Rx: reviewed and unchanged ROS: see above, otherwise unchanged Labs: None Imaging: None MEDICATIONS: Current Outpatient Medications Medication Sig Lancets Use as instructed to check blood sugar twice daily (E11.9, Z79.4) blood sugar diagnostic (BLOOD GLUCOSE TEST) test strip Use as instructed to check blood sugar twice daily (E11.9, Z79.4) Blood-Glucose Meter Use to check blood sugar 2 times per day tirzepatide (MOUNJARO) 12.5 mg/0.5 mL pen injector Inject 12.5 mg subcutaneously one time a week. insulin glargine U-300 conc (TOUJEO SOLOSTAR U-300 INSULIN) 300 unit/mL (1.5 mL) Inject 40 Units subcutaneously once daily. tamsulosin (FLOMAX) 0.4 mg Take 1 capsule by mouth two times a day. Blood-Glucose Sensor (DEXCOM G7 SENSOR) yesenia APPLY NEW SENSOR EVERY 10 DAYS empagliflozin (JARDIANCE) 10 mg tablet Take 1 tablet by mouth daily with breakfast. Insulin [place], Disposable, (BD ULTRAFINE III MINI PEN) 31 gauge x 3/16 Use to inject insulin once daily metFORMIN ER (GLUCOPHAGE XR) 500 mg 24 hr tablet Take 2 tablets by mouth two times a day with meals. rosuvastatin (CRESTOR) 10 mg tablet Take 1 tablet by mouth every afternoon. carvedilol (COREG) 25 mg tablet Take 1 tablet by mouth two times a day. chlorthalidone (HYGROTON) 25 mg tablet Take 0.5 tablets by mouth once daily. lisinopril (ZESTRIL) 40 mg tablet Take 1 tablet by mouth once daily. Blood Pressure Monitor Use to monitor blood pressure Blood-Glucose Meter,Continuous (DEXCOM G7 GENERATOR ASSEMBLER) [facility] continuously to monitor glucose, IDDM, E 11.1393 aspirin, enteric coated (ECOTRIN LOW STRENGTH) 81 mg EC tablet Take 1 tablet by mouth once daily. ticagrelor (BRILINTA) 90 mg tablet Take 1 tablet by mouth two times a day. (Patient not taking: Reported on 10/08/2024) No current facility-administered medications for this visit. PHYSICAL EXAM: Ht 172.7 cm (5' 8) Wt 86.2 kg (190 lb) BMI 28.89 kg/m Body mass index is 28.89 kg/m . General: Well masculinized, well nourished male Psych: euthymic, NAD Neuro: A&Ox3 Inguinal: No lesions, adenopathy, or hernias Phallus: normal, circumcised, no lesions Meatus: orthotopic, patent, no discharge Scrotum: no lesions, normal rugae Testes: Descended, nontender, and no masses bilaterally CELESTINO: 40 g prostate without nodularity or tenderness, normal anal sphincter tone. FOLLOW UP: 6 months Jun Goncalves M.D, MS Associate Staff [facility] [place] [facility] Bladder scan obtained 290 ml of urine documented in this encounter [facility] 10-08-2024 Note HNO ID: [id number] Author: JUDI GAFFNEY LPN Service: ? Author Type: LICENSED NURSE Type: Progress Notes Filed: 11/16/2024 17:53 Note Text: Bladder scan obtained 290 ml of urine [facility] 09-16-2024 History of Present illness Narrative Images from the original note were not included. Primary Care Pharmacy Visit CC (Reason for Consult): (E11.9, Z79.4) Type 2 diabetes mellitus without complication, with long-term current use of insulin (HCC) (primary encounter diagnosis) Goal(s): A1c <7% Last Collaborating Provider Visit: 06/05/[address] Rivero Erik Clarke is a 68 year old male presenting for follow up visit in person. Patient consents to pharmacy collaborative practice agreement. . Last Pharmacy Visit: 07/22/24 - Increased Mounjaro to 12.5 mg once weekly HPI: -Patient reports that he has received all supplies from [facility] -Patient reports that the increase in Mounjaro has been great and he feels his numbers have improved -Patient reports that things have been going great -Discussed increasing mounjaro at next visit and patient was agreeable but was hesitant this time because he just received all new supplies Current DM Medications: -Metformin ER 500 mg #2 twice daily -Jardiance 10 mg once daily -Mounjaro 12.5 mg once weekly on Fridays -Toujeo 40 units once daily Previously Trialed DM Meds: Glimepiride - changed to insulin Ariella Moser - can't remember why he stopped it Jardiance 25mg - balanitis Diet -Diet has been good and consistent -Reports some weight loss GLYCEMIC CONTROL: Glucometer present at visit: No Hypoglycemia: No CGM Data Past medical history reviewed. ALLERGIES Allergen Reactions Verapamil Other: See Comments Severe debilitating cluster headaches Current Outpatient Medications Medication Sig Dispense Refill Lancets Use as instructed to check blood sugar twice daily (E11.9, Z79.4) 200 each 3 blood sugar diagnostic (BLOOD GLUCOSE TEST) test strip Use as instructed to check blood sugar twice daily (E11.9, Z79.4) 200 each 3 Blood-Glucose Meter Use to check blood sugar 2 times per day 1 Each 0 tirzepatide (MOUNJARO) 12.5 mg/0.5 mL pen injector Inject 12.5 mg subcutaneously one time a week. 6 mL 1 insulin glargine U-300 conc (TOUJEO SOLOSTAR U-300 INSULIN) 300 unit/mL (1.5 mL) Inject 40 Units subcutaneously once daily. 15 mL 3 tamsulosin (FLOMAX) 0.4 mg Take 1 capsule by mouth two times a day. 180 capsule 3 Blood-Glucose Sensor (DEXCOM G7 SENSOR) yesenia APPLY NEW SENSOR EVERY 10 DAYS 9 Each 4 empagliflozin (JARDIANCE) 10 mg tablet Take 1 tablet by mouth daily with breakfast. 90 tablet 3 Insulin [place], Disposable, (BD ULTRAFINE III MINI PEN) 31 gauge x 3/16 Use to inject insulin once daily 100 Each 3 metFORMIN ER (GLUCOPHAGE XR) 500 mg 24 hr tablet Take 2 tablets by mouth two times a day with meals. 360 tablet 3 rosuvastatin (CRESTOR) 10 mg tablet Take 1 tablet by mouth every afternoon. 90 tablet 3 carvedilol (COREG) 25 mg tablet Take 1 tablet by mouth two times a day. 180 tablet 3 chlorthalidone (HYGROTON) 25 mg tablet Take 0.5 tablets by mouth once daily. 45 tablet 2 lisinopril (ZESTRIL) 40 mg tablet Take 1 tablet by mouth once daily. 90 tablet 3 ticagrelor (BRILINTA) 90 mg tablet Take 1 tablet by mouth two times a day. 180 tablet 3 Blood Pressure Monitor Use to monitor blood pressure 1 Each 0 Blood-Glucose Meter,Continuous (DEXCOM G7 GENERATOR ASSEMBLER) [facility] [place] to monitor glucose, IDDM, E 11.3293 aspirin, enteric coated (ECOTRIN LOW STRENGTH) 81 mg EC tablet Take 1 tablet by mouth once daily. No current facility-administered medications for this visit. Pill bottles are not present. Adherence: denies missed doses. Rx coverage: Payor: MEDICARE / Plan: MEDICARE A AND B / Product Type: Medicare / Medications affordable? Yes PHARMACOTHERAPY PREVENTATIVE MEDS: On MARY BETH/ARB: Yes On Statin: Yes On ASA: Yes EXAM: There were no vitals taken for this visit. Last 3 Encounter BP Readings: Date: BP: 08/28/2024 126/78 07/21/2024 138/83 06/24/2024 91/53 Wt: 86 kg (189 lb 9.5 oz) BMI: 29.69 kg/(m^2) LABS: Lab Results Component Value Date HBA1C 7.5 06/16/2024 HBA1C 7.3 01/23/2024 HBA1C 7.5 08/15/2023 HBA1C 7.9 12/13/2021 HBA1C 9.1 04/05/2020 HBA1C 9.0 11/03/2019 HBA1C 8.4 03/14/2019 HBA1C 8.0 08/24/2018 Glucose 157 06/16/2024 BUN 17 06/16/2024 Creatinine 0.81 06/16/2024 Sodium 143 06/16/2024 Potassium 4.1 06/16/2024 Chloride 104 06/16/2024 CO2 28 06/16/2024 Protein, Total 7.4 06/16/2024 Albumin 4.5 06/16/2024 Calcium 10.2 06/16/2024 Alkaline Phosphatase 47 06/16/2024 Bilirubin, Total 1.4 06/16/2024 AST 19 06/16/2024 ALT 20 06/16/2024 Lab Results Component Value Date CHOL 92 12/04/2023 CHOL 146 04/05/2020 LDL 8 12/04/2023 LDL 53 04/05/2020 HDL 33 12/04/2023 HDL 31 04/05/2020 TG 256 12/04/2023 TG 310 04/05/2020 Albumin/Creat Ratio (mg/g) Date Value 12/04/2023 134 (H) eGFR-All Other Races Date Value 06/09/2021 >60 04/05/2020 >60 . Estimated Glomerular Filtration Rate (mL/min/1.73m ) Date Value 06/16/2024 95 ASSESSMENT/PLAN: 1. Type 2 diabetes mellitus without complication, with long-term current use of insulin (HCC) - ICD9: 250.00, V58.67, ICD10: E11.9, Z79.4 - Improving control - Continue Metformin ER 500 mg #2 twice daily, Jardiance 10 mg once daily, Mounjaro 12.5 mg once weekly on Fridays, and Toujeo 40 units once daily - Statin prescribed - rosuvastatin - Discussed diabetic education issues of medication-specific side effects and monitoring - Follow up in 1 month, sooner should any other issues arise. - A1c already ordered Efrain Chun RPh Overdue Diabetes Health Maintenance: Up to date on diabetes-related health maintenance Follow Up: Next PCP visit: 12/10/24 Next PharmD visit: 10/21/24 @ 9:00AM Efrain Chun RPh I spent a total of 25 minutes on the date of the service which included preparing to see the patient, [id number] patient care, and completing clinical documentation. Patient interviewed independently by the resident. Zazueta elements of history confirmed. Agree with findings and plan as outlined by the resident. My additions to the progress note are underlined. Ophelia Null, ChasidyD, BCACP Primary Care Clinical Industrial Hygiene Manager documented in this encounter [facility] 09-16-2024 Instructions Efrain Chun RPh - 09/16/2024 9:00 AM EDT -Continue current medications -Continue to work on diet and exercise -Go get A1c drawn at [place] Follow up: 10/21/24 @ 9:00AM documented in this encounter [facility] 09-16-2024 Note HNO ID: [id number] Author: EFRAIN CHUN RPh Service: ? Author Type: Pharmacist Type: Progress Notes Filed: 09/16/2024 09:55 Note Text: Primary Care Pharmacy Visit CC (Reason for Consult): (E11.9, Z79.4) Type 2 diabetes mellitus without complication, with long-term current use of insulin ([facility]) (primary encounter diagnosis) Goal(s): A1c <7% Last Collaborating Provider Visit: 06/05/[address] Rivero Erik Clarke is a 68 year old male presenting for follow up visit in person. Patient consents to pharmacy collaborative practice agreement. . Last Pharmacy Visit: 07/22/24 - Increased Mounjaro to 12.5 mg once weekly HPI: -Patient reports that he has received all supplies from [facility] -Patient reports that the increase in Mounjaro has been great and he feels his numbers have improved -Patient reports that things have been going great -Discussed increasing mounjaro at next visit and patient was agreeable but was hesitant this time because he just received all new supplies Current DM Medications: -Metformin ER 500 mg #2 twice daily -Jardiance 10 mg once daily -Mounjaro 12.5 mg once weekly on Fridays -Toujeo 40 units once daily Previously Trialed DM Meds: Glimepiride - changed to insulin Ariella Moser - can't remember why he stopped it Jardiance 25mg - balanitis Diet -Diet has been good and consistent -Reports some weight loss GLYCEMIC CONTROL: Glucometer present at visit: No Hypoglycemia: No CGM Data Past medical history reviewed. ALLERGIES Allergen Reactions Verapamil Other: See Comments Severe debilitating cluster headaches Current Outpatient Medications Medication Sig Dispense Refill Lancets Use as instructed to check blood sugar twice daily (E11.9, Z79.4) 200 each 3 blood sugar diagnostic (BLOOD GLUCOSE TEST) test strip Use as instructed to check blood sugar twice daily (E11.9, Z79.4) 200 each 3 Blood-Glucose Meter Use to check blood sugar 2 times per day 1 Each 0 tirzepatide (MOUNJARO) 12.5 mg/0.5 mL pen injector Inject 12.5 mg subcutaneously one time a week. 6 mL 1 insulin glargine U-300 conc (TOUJEO SOLOSTAR U-300 INSULIN) 300 unit/mL (1.5 mL) Inject 40 Units subcutaneously once daily. 15 mL 3 tamsulosin (FLOMAX) 0.4 mg Take 1 capsule by mouth two times a day. 180 capsule 3 Blood-Glucose Sensor ([employer] G7 SENSOR) yesenia APPLY NEW SENSOR EVERY 10 DAYS 9 Each 4 empagliflozin (JARDIANCE) 10 mg tablet Take 1 tablet by mouth daily with breakfast. 90 tablet 3 Insulin [place], Disposable, (BD ULTRAFINE III MINI PEN) 31 gauge x 3/16 Use to inject insulin once daily 100 Each 3 metFORMIN ER (GLUCOPHAGE XR) 500 mg 24 hr tablet Take 2 tablets by mouth two times a day with meals. 360 tablet 3 rosuvastatin (CRESTOR) 10 mg tablet Take 1 tablet by mouth every afternoon. 90 tablet 3 carvedilol (COREG) 25 mg tablet Take 1 tablet by mouth two times a day. 180 tablet 3 chlorthalidone (HYGROTON) 25 mg tablet Take 0.5 tablets by mouth once daily. 45 tablet 2 lisinopril (ZESTRIL) 40 mg tablet Take 1 tablet by mouth once daily. 90 tablet 3 ticagrelor (BRILINTA) 90 mg tablet Take 1 tablet by mouth two times a day. 180 tablet 3 Blood Pressure Monitor Use to monitor blood pressure 1 Each 0 Blood-Glucose Meter,Continuous (DEXCOM G7 GENERATOR ASSEMBLER) [facility] to monitor glucose, IDDM, E 11.3293 aspirin, enteric coated (ECOTRIN LOW STRENGTH) 81 mg EC tablet Take 1 tablet by mouth once daily. No current facility-administered medications for this visit. Pill bottles are not present. Adherence: denies missed doses. Rx coverage: Payor: MEDICARE / Plan: MEDICARE A AND B / Product Type: Medicare / Medications affordable? Yes PHARMACOTHERAPY PREVENTATIVE MEDS: On MARY BETH/ARB: Yes On Statin: Yes On ASA: Yes EXAM: There were no vitals taken for this visit. Last 3 Encounter BP Readings: Date: BP: 08/28/2024 126/78 07/21/2024 138/83 06/24/2024 91/53 Wt: 86 kg (189 lb 9.5 oz) BMI: 29.69 kg/(m2) LABS: Lab Results Component Value Date HBA1C 7.5 06/16/2024 HBA1C 7.3 01/23/2024 HBA1C 7.5 08/15/2023 HBA1C 7.9 12/13/2021 HBA1C 9.1 04/05/2020 HBA1C 9.0 11/03/2019 HBA1C 8.4 03/14/2019 HBA1C 8.0 08/24/2018 Glucose 157 06/16/2024 BUN 17 06/16/2024 Creatinine 0.81 06/16/2024 Sodium 143 06/16/2024 Potassium 4.1 06/16/2024 Chloride 104 06/16/2024 CO2 28 06/16/2024 Protein, Total 7.4 06/16/2024 Albumin 4.5 06/16/2024 Calcium 10.2 06/16/2024 Alkaline Phosphatase 47 06/16/2024 Bilirubin, Total 1.4 06/16/2024 AST 19 06/16/2024 ALT 20 06/16/2024 Lab Results Component Value Date CHOL 92 12/04/2023 CHOL 146 04/05/2020 LDL 8 12/04/2023 LDL 53 04/05/2020 HDL 33 12/04/2023 HDL 31 04/05/2020 TG 256 12/04/2023 TG 310 04/05/2020 Albumin/Creat Ratio (mg/g) Date Value 12/04/2023 134 (H) eGFR-All Other Races Date Value 06/09/2021 >60 04/05/2020 >60 . Estimated Glomerular Filtration Rate (mL/min/1.73m?) Da (more content not included)... [facility] 09-16-2024 Note HNO ID: [id number] Author: OPHELIA NULL RPh Service: ? Author Type: Pharmacist Type: Progress Notes Filed: 09/16/2024 09:55 Note Text: Patient interviewed independently by the resident. Zazueta elements of history confirmed. Agree with findings and plan as outlined by the resident. My additions to the progress note are underlined. Ophelia Null, PharmD, BCACP Primary Care Clinical Industrial Hygiene Manager [facility] 08-28-2024 Instructions Antoinette Alicea APRN.CNP - 08/28/2024 8:28 AM EDT PLAN AND RECOMMENDATIONS: You may stop the Brilinta Continue same medications Follow up 6 months. CONTACT INFORMATION: Antoinette Alicea APRN.CNP Cardiology Nurse Practitioner Section of Regional Cardiology [facility] Dept of Cardiovascular Medicine [facility] [place] [address] Office Office documented in this encounter [facility] 08-28-2024 Note HNO ID: [id number] Author: ANTOINETTE ALICEA APRN.ANNIE Service: ? Author Type: Nurse Practitioner Type: Progress Notes Filed: 08/29/2024 08:03 Note Text: [facility] [place] [facility]ino[facility] Department of Cardiovascular Medicine SECTION OF CLINICAL CARDIOLOGY OUTPATIENT VISIT DATE August 28, 2024 OUTPATIENT VISIT TYPE ESTABLISHED PRIMARY CARE PHYSICIAN: Denis Rivero [address] [place] [address] REFERRING PHYSICIAN: No referring provider defined for this encounter. CHIEF COMPLAINT: Follow Up (Follow up/GEORGES 02/28/24 William /ECHO 01/23/24/ZIO 01/08/24 /EKG 11/18/23 /Surgery 08/16/23 Myectomy / Valve Replacement) HISTORY OF PRESENT ILLNESS: Mr. Clarke is a 68 year old male with PMH of DM2, hypertension, hyperlipidemia, BPH, nonrheumatic aortic valve stenosis/status post AVR, CAD, HOCM/status post myomectomy, who presents today for a cardiovascular medicine follow-up visit after I saw him in January. At that time we ordered an echo to be updated. We will review that today.. Bp at home is good. He denies shortness of breath, chest pain, palpitations, dizziness, lightheadedness, lower extremity edema, PND, orthopnea, presyncope, syncope, or claudication symptoms Subjective PAST MEDICAL HISTORY Diagnosis Date BPH (benign prostatic hypertrophy) with urinary retention 01/22/2012 Bradycardia Coronary artery disease involving [place] coronary artery of [place] heart without angina pectoris 05/30/2019 History: s/p CATRACHITA. On Brilinta ED (erectile dysfunction) HOCM (hypertrophic obstructive cardiomyopathy) (HCC) 05/15/2023 History: HOCM Hyperlipidemia LDL goal < 100 01/22/2012 Hypertension 01/22/2012 Nonrheumatic aortic (valve) stenosis 05/30/2019 History: Severe Obesity S/P AVR 09/18/2023 S/P myomectomy 09/18/2023 Status post insertion of drug eluting coronary artery stent 08/28/2022 Type 2 diabetes mellitus not at goal 01/22/2012 PAST SURGICAL HISTORY Procedure Laterality Date CARDIAC CATHETERIZATION HX 2000, 2005 no blockages, mildly leaky valve LEFT HEART CATH,PERCUTANEOUS 06/2022 stent placed PAST SURGICAL HISTORY OF 12/2015 L3-S1 laminectomy, decompression PAST SURGICAL HISTORY OF 01/16/2017 Lumbar reexploration L3-S1 with laminectomy and decompression Social History Tobacco Use Smoking status: Former Current packs/day: 0.00 Types: Cigarettes Quit date: 01/21/2010 Years since quittin.6 Passive exposure: Never Smokeless tobacco: Current Types: Chew Tobacco comments: Patient states he has been chewing since he was younger - about a half can. Patient states it is the pouch type. Vaping Use Vaping status: Never Used Substance Use Topics Alcohol use: No Drug use: No FAMILY HISTORY Problem Relation Age of Onset Diabetes Mother Heart Father Diabetes Father ALLERGIES: ALLERGIES Allergen Reactions Verapamil Other: See Comments Severe debilitating cluster headaches MEDICATIONS: Lancets Use as instructed to check blood sugar twice daily (E11.9, Z79.4) blood sugar diagnostic (BLOOD GLUCOSE TEST) test strip Use as instructed to check blood sugar twice daily (E11.9, Z79.4) Blood-Glucose Meter Use to check blood sugar 2 times per day tirzepatide (MOUNJARO) 12.5 mg/0.5 mL pen injector Inject 12.5 mg subcutaneously one time a week. insulin glargine U-300 conc (TOUJEO SOLOSTAR U-300 INSULIN) 300 unit/mL (1.5 mL) Inject 40 Units subcutaneously once daily. tamsulosin (FLOMAX) 0.4 mg Take 1 capsule by mouth two times a day. Blood-Glucose Sensor (Anne Fogarty G7 SENSOR) yesenia APPLY NEW SENSOR EVERY 10 DAYS empagliflozin (JARDIANCE) 10 mg tablet Take 1 tablet by mouth daily with breakfast. Insulin [place], Disposable, (BD ULTRAFINE III MINI PEN) 31 gauge x 3/16 Use to inject insulin once daily metFORMIN ER (GLUCOPHAGE XR) 500 mg 24 hr tablet Take 2 tablets by mouth two times a day with meals. rosuvastatin (CRESTOR) 10 mg tablet Take 1 tablet by mouth every afternoon. carvedilol (COREG) 25 mg tablet Take 1 tablet by mouth two times a day. chlorthalidone (HYGROTON) 25 mg tablet Take 0.5 tablets by mouth once daily. lisinopril (ZESTRIL) 40 mg tablet Take 1 tablet by mouth once daily. ticagrelor (BRILINTA) 90 mg tablet Take 1 tablet by mouth two times a day. potassium chloride ER (KLOR-CON) 20 mEq tablet Take 1 tablet by mouth once daily. Blood Pressure Monitor Use to monitor blood pressure Blood-Glucose Meter,Continuous (DEXCOM G7 GENERATOR ASSEMBLER) misc Use continuously to monitor glucose, IDDM, E 11.3293 aspirin, enteric coated (ECOTRIN LOW STRENGTH) 81 mg EC tablet Take 1 tablet by mouth once daily. REVIEW OF SYSTEMS: CARD: See HPI GENERAL: Negative for: Weight loss or gain, Fever and/or Chills HEENT: Negative for: Headache, Impaired Vision, Glasses, Hearing Impairment, Ringing in Ears, Nosebleeds, Bleeding Gums NECK: Negative for: S (more content not included)... [facility] 08-28-2024 History of Present illness Narrative Images from the original note were not included. [facility] [place] [facility] Department of Cardiovascular Medicine SECTION OF CLINICAL CARDIOLOGY OUTPATIENT VISIT DATE August 28, 2024 OUTPATIENT VISIT TYPE ESTABLISHED PRIMARY CARE PHYSICIAN: Denis Rivero [address] [place] [address] REFERRING PHYSICIAN: No referring provider defined for this encounter. CHIEF COMPLAINT: Follow Up (Follow up/GEORGES 02/28/24 William /ECHO 01/23/24/ZIO 01/08/24 /EKG 11/18/23 /Surgery 08/16/23 Myectomy / Valve Replacement) HISTORY OF PRESENT ILLNESS: Mr. Clarke is a 68 year old male with PMH of DM2, hypertension, hyperlipidemia, BPH, nonrheumatic aortic valve stenosis/status post AVR, CAD, HOCM/status post myomectomy, who presents today for a cardiovascular medicine follow-up visit after I saw him in January. At that time we ordered an echo to be updated. We will review that today.. Bp at home is good. He denies shortness of breath, chest pain, palpitations, dizziness, lightheadedness, lower extremity edema, PND, orthopnea, presyncope, syncope, or claudication symptoms Subjective PAST MEDICAL HISTORY Diagnosis Date BPH (benign prostatic hypertrophy) with urinary retention 01/22/2012 Bradycardia Coronary artery disease involving [place] coronary artery of [place] heart without angina pectoris 05/30/2019 History: s/p CATRACHITA. On Brilinta ED (erectile dysfunction) HOCM (hypertrophic obstructive cardiomyopathy) (FORMERLY [facility]) 05/15/2023 History: HOCM Hyperlipidemia LDL goal < 100 01/22/2012 Hypertension 01/22/2012 Nonrheumatic aortic (valve) stenosis 05/30/2019 History: Severe Obesity S/P AVR 09/18/2023 S/P myomectomy 09/18/2023 Status post insertion of drug eluting coronary artery stent 08/28/2022 Type 2 diabetes mellitus not at goal 01/22/2012 PAST SURGICAL HISTORY Procedure Laterality Date CARDIAC CATHETERIZATION HX 1999, 2004 no blockages, mildly leaky valve LEFT HEART CATH,PERCUTANEOUS 06/2022 stent placed PAST SURGICAL HISTORY OF 12/2015 L3-S1 laminectomy, decompression PAST SURGICAL HISTORY OF 01/16/2017 Lumbar reexploration L3-S1 with laminectomy and decompression Social History Tobacco Use Smoking status: Former Current packs/day: 0.00 Types: Cigarettes Quit date: 01/21/2010 Years since quittin.6 Passive exposure: Never Smokeless tobacco: Current Types: Chew Tobacco comments: Patient states he has been chewing since he was younger - about a half can. Patient states it is the pouch type. Vaping Use Vaping status: Never Used Substance Use Topics Alcohol use: No Drug use: No FAMILY HISTORY Problem Relation Age of Onset Diabetes Mother Heart Father Diabetes Father ALLERGIES: ALLERGIES Allergen Reactions Verapamil Other: See Comments Severe debilitating cluster headaches MEDICATIONS: Lancets Use as instructed to check blood sugar twice daily (E11.9, Z79.4) blood sugar diagnostic (BLOOD GLUCOSE TEST) test strip Use as instructed to check blood sugar twice daily (E11.9, Z79.4) Blood-Glucose Meter Use to check blood sugar 2 times per day tirzepatide (MOUNJARO) 12.5 mg/0.5 mL pen injector Inject 12.5 mg subcutaneously one time a week. insulin glargine U-300 conc (TOUJEO SOLOSTAR U-300 INSULIN) 300 unit/mL (1.5 mL) Inject 40 Units subcutaneously once daily. tamsulosin (FLOMAX) 0.4 mg Take 1 capsule by mouth two times a day. Blood-Glucose Sensor (DEXCOM G7 SENSOR) yesenia APPLY NEW SENSOR EVERY 10 DAYS empagliflozin (JARDIANCE) 10 mg tablet Take 1 tablet by mouth daily with breakfast. Insulin [place], Disposable, (BD ULTRAFINE III MINI PEN) 31 gauge x 3/16 Use to inject insulin once daily metFORMIN ER (GLUCOPHAGE XR) 500 mg 24 hr tablet Take 2 tablets by mouth two times a day with meals. rosuvastatin (CRESTOR) 10 mg tablet Take 1 tablet by mouth every afternoon. carvedilol (COREG) 25 mg tablet Take 1 tablet by mouth two times a day. chlorthalidone (HYGROTON) 25 mg tablet Take 0.5 tablets by mouth once daily. lisinopril (ZESTRIL) 40 mg tablet Take 1 tablet by mouth once daily. ticagrelor (BRILINTA) 90 mg tablet Take 1 tablet by mouth two times a day. potassium chloride ER (KLOR-CON) 20 mEq tablet Take 1 tablet by mouth once daily. Blood Pressure Monitor Use to monitor blood pressure Blood-Glucose Meter,Continuous (DEXCOM G7 GENERATOR ASSEMBLER) misc Use continuously to monitor glucose, IDDM, E 11.3293 aspirin, enteric coated (ECOTRIN LOW STRENGTH) 81 mg EC tablet Take 1 tablet by mouth once daily. REVIEW OF SYSTEMS: CARD: See HPI GENERAL: Negative for: Weight loss or gain, Fever and/or Chills HEENT: Negative for: Headache, Impaired Vision, Glasses, Hearing Impairment, Ringing in Ears, Nosebleeds, Bleeding Gums NECK: Negative for: Swelling, Pain, Stiffness RESPIRATORY: Negative for: Cough, Blood in Sputum, Shortness of breath, Wheezing, Apnea GASTROINTESTINAL: Negative for: Nausea, Vomiting, Diarrhea, Blood in stool, or Dark black stools MUSCULOSKELETAL: Negative for: Muscle or joint pain, Stiffness , Joint swelling HEMATOLOGICAL/LYMPHATIC: Negative for: Easy bruising , Easy bleeding Objective PHYSICAL EXAMINATION: There were no vitals taken for this visit. General: Well appearing, in no acute distress. Skin: No clubbing, no cyanosis. Eyes: Extra ocular movements intact Oropharynx: Teeth in good repair. Neck: No jugular venous distention, no carotid bruits, carotids have a normal upstroke. Lungs: Clear to auscultation bilaterally, no wheezing or rhonchi. Heart: Regular rhythm, S1, S2 normal, no murmur. No peripheral edema . Grade 2/4 distal pulses bilaterally. Neuro: Oriented to person, place and time, alert, cooperative, gait coordinated. CARDIOVASCULAR MEDICINE TESTING: Electrocardiogram: no EKG today Last ECHO Result Conclusion ECHO Collected: 01/23/2024 9:22 AM (Final result) Impression: CONCLUSIONS: - Exam indication: Shortness of Breath - The abnormal regional wall motion pattern in conjunction with normal regional wall thickness is consistent with a LBBB abnormal conduction delay. - The left ventricle is normal in size. There is moderate left ventricular hypertrophy. Left ventricular systolic function is mildly decreased. EF = 50 5% (visual est.) Grade III left ventricular diastolic dysfunction. - The right ventricle is normal in size. Right ventricular systolic function is normal. - [place]imount Magna Ease prosthetic aortic valve (size #25). There is no aortic valve regurgitation. The peak gradient is 20 mmHg, the mean gradient is 12 mmHg and the dimensionless valve index is 0.64. Gradients measured at a heart rate of 80 beats per minute. - Exam was compared with the prior echocardiographic exam performed on 08/21/23. Aortic Valve gradients are slightly higher on [facility] exam ( but still within normal limits). Peak/mean gradients 20/12 mmHg on current study ( 9/6 mm on the prior study at similar heart rates). LV function has improved. * * * Final * * * Last EKG Result Conclusion EKG Collected: 11/18/2023 1:33 PM (Preliminary result) Impression: NORMAL SINUS RHYTHM LEFT AXIS DEVIATION LEFT BUNDLE BRANCH BLOCK ABNORMAL ECG There were no tests performed for review. I personally interviewed, confirmed and edited the above information if obtained by others. Conclusion: (I10) Essential hypertension (primary encounter diagnosis) Comment: Good control of blood pressure Plan: No change in meds (E78.2) Mixed hyperlipidemia Comment: LDL in November 2023 equaled 8 Plan: Consider cut down on statin (I35.0) Nonrheumatic aortic (valve) stenosis Comment: Status post AVR. No symptoms. Plan: Same medications (I25.10) Coronary artery disease involving [place] coronary artery of [place] heart without angina pectoris Comment: No ischemic symptoms Plan: May discontinue Brilinta at this time. Otherwise continue same medicine (I42.1) HOCM (hypertrophic obstructive cardiomyopathy) (FORMERLY [facility]) Comment: No evidence of fluid overload. Plan: Continue same medications PLAN AND RECOMMENDATIONS: You may stop the Brilinta Continue same medications Follow up 6 months. CONTACT INFORMATION: Antoinette Alicea APRN.CNP Cardiology Nurse Practitioner Section of Regional Cardiology [facility] Dept of Cardiovascular Medicine [facility] [place] [address] Office Office This note was partially generated using [employer]errilla [employer] recognition system and may contain errors related to that system including grammar, punctuation, spelling, and words that may be inappropriate documented in this encounter [facility] 08-26-2024 Note HNO ID: [id number] Author: DIANN DOTSON RN Service: ? Author Type: Registered Nurse Type: Progress Notes Filed: 08/26/2024 10:03 Note Text: QOL Call Tracking Documentation Follow-Up Type: Phone Call Call Attempt: 1st Attempt Call Status: Left Message [facility] 08-26-2024 History of Present illness Narrative QOL Call Tracking Documentation Follow-Up Type: Phone Call Call Attempt: 1st Attempt Call Status: Left Message documented in this encounter [facility] 08-26-2024 Note Patient Outreach ([facility]) ERIK CLARKE ([id number]) 1955 M Date Time Provider Department 08/26/24 DIANN DOTSON During your visit today, we recorded the following information about you: Diann Dotson RN 08/26/2024 10:03 AM Signed QOL Call Tracking Documentation Follow-Up Type: Phone Call Call Attempt: 1st Attempt Call Status: Left Message Allergies As of Date: 08/26/2024 Noted Allergy Reaction VERAPAMIL 02/28/2024 14 - Other: See Comments Comments: Severe debilitating cluster headaches Date Reviewed: 07/22/2024 Reviewed by: Ophelia Null RPh - Fully Assessed Prescriptions as of 08/26/2024 - Lancets Use as instructed to check blood sugar twice daily (E11.9, Z79.4) - blood sugar diagnostic (BLOOD GLUCOSE TEST) test strip Use as instructed to check blood sugar twice daily (E11.9, Z79.4) - Blood-Glucose Meter Use to check blood sugar 2 times per day - tirzepatide (MOUNJARO) 12.5 mg/0.5 mL pen injector Inject 12.5 mg subcutaneously one time a week. - insulin glargine U-300 conc (TOUJEO SOLOSTAR U-300 INSULIN) 300 unit/mL (1.5 mL) Inject 40 Units subcutaneously once daily. - tamsulosin (FLOMAX) 0.4 mg Take 1 capsule by mouth two times a day. - Blood-Glucose Sensor (Anne Fogarty G7 SENSOR) yesenia APPLY NEW SENSOR EVERY 10 DAYS - empagliflozin (JARDIANCE) 10 mg tablet Take 1 tablet by mouth daily with breakfast. - Insulin [place], Disposable, (BD ULTRAFINE III MINI PEN) 31 gauge x 3/16 Use to inject insulin once daily - metFORMIN ER (GLUCOPHAGE XR) 500 mg 24 hr tablet Take 2 tablets by mouth two times a day with meals. - rosuvastatin (CRESTOR) 10 mg tablet Take 1 tablet by mouth every afternoon. - carvedilol (COREG) 25 mg tablet Take 1 tablet by mouth two times a day. - chlorthalidone (HYGROTON) 25 mg tablet Take 0.5 tablets by mouth once daily. - lisinopril (ZESTRIL) 40 mg tablet Take 1 tablet by mouth once daily. - ticagrelor (BRILINTA) 90 mg tablet Take 1 tablet by mouth two times a day. - potassium chloride ER (KLOR-CON) 20 mEq tablet Take 1 tablet by mouth once daily. - Blood Pressure Monitor Use to monitor blood pressure - Blood-Glucose Meter,Continuous (DEXCOM G7 GENERATOR ASSEMBLER) misc Use continuously to monitor glucose, IDDM, E 11.5154 - aspirin, enteric coated (ECOTRIN LOW STRENGTH) 81 mg EC tablet Take 1 tablet by mouth once daily. 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*01/22/2012 Essential hypertension [I10] 01/22/2012 Hyperlipidemia [E78.5] 01/22/2012 Benign prostatic hyperplasia with lower urinary*01/22/2012 Colon polyps [K63.5] 07/15/2014 Other and unspecified angina pectoris [I20.9] 07/15/2014 10/12/2020 Erectile dysfunction [N52.9] 08/26/2014 Prolapsed lumbar disc [M51.26] 01/19/2017 Stable angina (HCC) [I20.89] 11/13/2017 Chewing tobacco nicotine dependence without com*08/27/2018 Lumbar spondylosis [M47.816] 08/27/2018 DDD (degenerative disc disease), lumbar [M51.36*08/27/2018 Lumbar radiculopathy [M54.16] 08/27/2018 Abnormal finding on echocardiogram [R93.1] 08/27/2018 10/12/2020 Heart murmur [R01.1] 08/27/2018 05/30/2019 Bradycardia [R00.1] 04/22/2019 08/17/2023 Nicotine use disorder, F17.2 [F17.200] 04/23/2019 Nonrheumatic aortic (valve) stenosis [I35.0] 05/30/2019 Coronary artery disease involving [place] martino*05/30/2019 Rotator cuff syndrome of left shoulder [M75.102]01/28/2020 Status post insertion of drug eluting coronary *08/28/2022 HOCM (hypertrophic obstructive cardiomyopathy) *05/15/2023 Discharge planning issues [Z75.8] 08/14/2023 Encounter for support and coordination of trans*08/14/2023 Post-op pain [G89.18] 08/16/2023 Hypovolemia [E86.1] 08/16/2023 Atelectasis [J98.11] 08/17/2023 Delirium [R41.0] 08/17/2023 Diabetes mellitus type 1, controlled, without c*08/18/2023 Hypervolemia [E87.70] 08/18/2023 S/P myomectomy [Z98.890] 09/18/2023 S/P AVR [Z95.2] 09/18/2023 Primary hypertension [I10] 09/18/2023 Elevated PSA [R97.20] 07/21/2024 Encounter Status:Closed by DIANN DOTSON on 08/26/24 [facility] 07-24-2024 Telephone encounter Note Rx resent with diagnosis code attached. Patient's request for medication is as follows: Requested Prescriptions Signed Prescriptions Disp Refills Lancets 200 each 3 Sig: Use as instructed to check blood sugar twice daily (E11.9, Z79.4) Authorizing Provider: DENIS RIVERO Ordering User: OPHELIA NULL blood sugar diagnostic (BLOOD GLUCOSE TEST) test strip 200 each 3 Sig: Use as instructed to check blood sugar twice daily (E11.9, Z79.4) Authorizing Provider: DENIS RIVERO Ordering User: OPHELIA NULL PharmD, BCACP Primary Care Clinical Industrial Hygiene Manager [facility] Work Phone: 07-24-2024 Miscellaneous Notes Rx resent with diagnosis code attached. Patient's request for medication is as follows: Requested Prescriptions Signed Prescriptions Disp Refills Lancets 200 each 3 Sig: Use as instructed to check blood sugar twice daily (E11.9, Z79.4) Authorizing Provider: DENIS RIVERO Ordering User: OPHELIA NULL blood sugar diagnostic (BLOOD GLUCOSE TEST) test strip 200 each 3 Sig: Use as instructed to check blood sugar twice daily (E11.9, Z79.4) Authorizing Provider: DENIS RIVERO Ordering User: OPHELIA NULL PharmD, BCACP Primary Care Clinical Industrial Hygiene Manager [facility] Pharm[facility] is calling regarding the scripts for the test strips and lancets. Patient has Medicare B insurance and they require an ICD-10 code on the actual scripts. Please update and resend. documented in this encounter [facility] 07-24-2024 Telephone encounter Note [facility] Pharmacy is calling regarding the scripts for the test strips and lancets. Patient has Medicare B insurance and they require an ICD-10 code on the actual scripts. Please update and resend. [facility] Work Phone: 07-23-2024 Telephone encounter Note Contacted rep at [facility] to check status of CGM order given patient reported still not received/needs additional information. Per [facility], order is in final approval step and should be shipped out in the next 24 hours; no additional information needed from office for order. Ophelia Null PharmD, VESTA Primary Care Clinical Industrial Hygiene Manager [facility] Work Phone: 07-23-2024 Miscellaneous Notes Contacted rep at [facility] to check status of CGM order given patient reported still not received/needs additional information. Per [facility], order is in final approval step and should be shipped out in the next 24 hours; no additional information needed from office for order. Ophelia Null PharmD, VESTA Primary Care Clinical Industrial Hygiene Manager documented in this encounter [facility] 07-22-2024 History of Present illness Narrative Images from the original note were not included. Primary Care Pharmacy Visit CC (Reason for Consult): (E11.9, Z79.4) Type 2 diabetes mellitus without complication, with long-term current use of insulin ([facility]) (primary encounter diagnosis) Goal(s): A1c <7% Last Collaborating Provider Visit: 06/05/[address] Mat Santiagowen Clarke is a 68 year old male presenting for follow up visit in person. Patient consents to pharmacy collaborative practice agreement. Last Pharmacy Visit: 06/17/24 HPI: Reports doing well States BGs have been going up and down Spoke with [facility] yesterday, and was told they needed something completed from the office Still has not gotten new Dexcom sensors yet, will need test strips Has 3 pens of Mounjaro 10 mg left Has not been exercising like before Current DM Medications: Metformin ER 500 mg #2 twice daily Jardiance 10 mg once daily Mounjaro 10 mg once weekly on Fridays Toujeo 38 units once daily - taking 40 units once daily Previously Trialed DM Meds: Glimepiride - changed to insulin Ariella Moser - can't remember why he stopped it Jardiance 25mg - balanitis Diet Denies any recent changes GLYCEMIC CONTROL: Glucometer present at visit: Yes Hypoglycemia: No CGM Data Past medical history reviewed. ALLERGIES Allergen Reactions Verapamil Other: See Comments Severe debilitating cluster headaches Current Outpatient Medications Medication Sig Dispense Refill tamsulosin (FLOMAX) 0.4 mg Take 1 capsule by mouth two times a day. 180 capsule 3 Blood-Glucose Sensor (DEXCOM G7 SENSOR) yesenia APPLY NEW SENSOR EVERY 10 DAYS 9 Each 4 tirzepatide (MOUNJARO) 10 mg/0.5 mL pen injector Inject 10 mg subcutaneously one time a week. 6 mL 4 empagliflozin (JARDIANCE) 10 mg tablet Take 1 tablet by mouth daily with breakfast. 90 tablet 3 insulin glargine U-300 conc (TOUJEO SOLOSTAR U-300 INSULIN) 300 unit/mL (1.5 mL) Inject 38 Units subcutaneously once daily. 15 mL 3 Insulin [place], Disposable, (BD ULTRAFINE III MINI PEN) 31 gauge x 3/16 Use to inject insulin once daily 100 Each 3 metFORMIN ER (GLUCOPHAGE XR) 500 mg 24 hr tablet Take 2 tablets by mouth two times a day with meals. 360 tablet 3 rosuvastatin (CRESTOR) 10 mg tablet Take 1 tablet by mouth every afternoon. 90 tablet 3 carvedilol (COREG) 25 mg tablet Take 1 tablet by mouth two times a day. 180 tablet 3 chlorthalidone (HYGROTON) 25 mg tablet Take 0.5 tablets by mouth once daily. 45 tablet 2 lisinopril (ZESTRIL) 40 mg tablet Take 1 tablet by mouth once daily. 90 tablet 3 ticagrelor (BRILINTA) 90 mg tablet Take 1 tablet by mouth two times a day. 180 tablet 3 potassium chloride ER (KLOR-CON) 20 mEq tablet Take 1 tablet by mouth once daily. 5 tablet 0 Lancets Use as instructed to check blood sugar twice daily 200 Each 3 blood sugar diagnostic (BLOOD GLUCOSE TEST) test strip Use as instructed to check blood sugar twice daily 200 Each 3 Blood-Glucose Meter Use to check blood sugar 2 times per day 1 Each 0 Blood Pressure Monitor Use to monitor blood pressure 1 Each 0 Blood-Glucose Meter,Continuous (DEXCOM G7 GENERATOR ASSEMBLER) [facility] continuously to monitor glucose, IDDM, E 11.3293 aspirin, enteric coated (ECOTRIN LOW STRENGTH) 81 mg EC tablet Take 1 tablet by mouth once daily. No current facility-administered medications for this visit. Pill bottles are not present. Adherence: denies missed doses. Rx coverage: Payor: MEDICARE / Plan: MEDICARE A AND B / Product Type: Medicare / Medications affordable? Yes PHARMACOTHERAPY PREVENTATIVE MEDS: On MARY BETH/ARB: Yes On Statin: Yes On ASA: Yes EXAM: There were no vitals taken for this visit. Last 3 Encounter BP Readings: Date: BP: 07/21/2024 138/83 06/24/2024 91/53 06/05/2024 137/73 Wt: 88 kg (194 lb) BMI: 30.38 kg/(m^2) LABS: Lab Results Component Value Date HBA1C 7.5 06/16/2024 HBA1C 7.3 01/23/2024 HBA1C 7.5 08/15/2023 HBA1C 7.9 12/13/2021 HBA1C 9.1 04/05/2020 HBA1C 9.0 11/03/2019 HBA1C 8.4 03/14/2019 HBA1C 8.0 08/24/2018 Glucose 157 06/16/2024 BUN 17 06/16/2024 Creatinine 0.81 06/16/2024 Sodium 143 06/16/2024 Potassium 4.1 06/16/2024 Chloride 104 06/16/2024 CO2 28 06/16/2024 Protein, Total 7.4 06/16/2024 Albumin 4.5 06/16/2024 Calcium 10.2 06/16/2024 Alkaline Phosphatase 47 06/16/2024 Bilirubin, Total 1.4 06/16/2024 AST 19 06/16/2024 ALT 20 06/16/2024 Lab Results Component Value Date CHOL 92 12/04/2023 CHOL 146 04/05/2020 LDL 8 12/04/2023 LDL 53 04/05/2020 HDL 33 12/04/2023 HDL 31 04/05/2020 TG 256 12/04/2023 TG 310 04/05/2020 Albumin/Creat Ratio (mg/g) Date Value 12/04/2023 134 (H) eGFR-All Other Races Date Value 06/09/2021 >60 04/05/2020 >60 . Estimated Glomerular Filtration Rate (mL/min/1.73m ) Date Value 06/16/2024 95 ASSESSMENT/PLAN: 1. Type 2 diabetes mellitus without complication, with long-term current use of insulin ([facility]) - ICD9: 250.00, V58.67, ICD10: E11.9, Z79.4 - Worsening control - Increase Mounjaro to 12.5 mg once weekly - Continue Toujeo 40 units once daily (updated to reflect as patient taking) - Continue all other medications as prescribed - Statin prescribed - rosuvastatin - Blood glucose monitoring on a continuous glucose monitoring schedule. Sent Rx for testing supplies to have on hand to use in meantime until CGM order received - Counseled on healthy diet and regular exercise - Discussed diabetic education issues of hypoglycemic/hyperglycemic symptoms and medication-specific side effects and monitoring - Follow up in 6 weeks, sooner should any other issues arise. - Will follow up with [facility] to check on status of Dexcom CGM order - Due for A1c ~09/14/24 Overdue Diabetes Health Maintenance: Up to date on diabetes-related health maintenance Follow Up: Next PCP visit: 12/10/24 Next PharmD visit: 09/16/24 Ophelia Null, PharmD, BCACP Primary Care Clinical Industrial Hygiene Manager I spent a total of 30 minutes on the date of the service which included preparing to see the patient, [id number] patient care, completing clinical documentation, counseling and educating the patient/family/caregiver, and ordering medications, tests, or procedures. documented in this encounter [facility] 07-22-2024 Instructions Ophelia Null RPh - 07/22/2024 9:00 AM EDT Increase Mounjaro to 12.5 mg once weekly documented in this encounter [facility] 07-22-2024 Note HNO ID: [id number] Author: OPHELIA NULL RPh Service: ? Author Type: Pharmacist Type: Progress Notes Filed: 07/22/2024 16:37 Note Text: Primary Care Pharmacy Visit CC (Reason for Consult): (E11.9, Z79.4) Type 2 diabetes mellitus without complication, with long-term current use of insulin ([facility]) (primary encounter diagnosis) Goal(s): A1c <7% Last Collaborating Provider Visit: 06/05/[address] Rivero Erik Clarke is a 68 year old male presenting for follow up visit in person. Patient consents to pharmacy collaborative practice agreement. Last Pharmacy Visit: 06/17/24 HPI: Reports doing well States BGs have been going up and down Spoke with [facility] yesterday, and was told they needed something completed from the office Still has not gotten new Dexcom sensors yet, will need test strips Has 3 pens of Mounjaro 10 mg left Has not been exercising like before Current DM Medications: Metformin ER 500 mg #2 twice daily Jardiance 10 mg once daily Mounjaro 10 mg once weekly on Fridays Toujeo 38 units once daily - taking 40 units once daily Previously Trialed DM Meds: Glimepiride - changed to insulin Ariella Moser - can't remember why he stopped it Jardiance 25mg - balanitis Diet Denies any recent changes GLYCEMIC CONTROL: Glucometer present at visit: Yes Hypoglycemia: No CGM Data Past medical history reviewed. ALLERGIES Allergen Reactions Verapamil Other: See Comments Severe debilitating cluster headaches Current Outpatient Medications Medication Sig Dispense Refill tamsulosin (FLOMAX) 0.4 mg Take 1 capsule by mouth two times a day. 180 capsule 3 Blood-Glucose Sensor (DEXCOM G7 SENSOR) yesenia APPLY NEW SENSOR EVERY 10 DAYS 9 Each 4 tirzepatide (MOUNJARO) 10 mg/0.5 mL pen injector Inject 10 mg subcutaneously one time a week. 6 mL 4 empagliflozin (JARDIANCE) 10 mg tablet Take 1 tablet by mouth daily with breakfast. 90 tablet 3 insulin glargine U-300 conc (TOUJEO SOLOSTAR U-300 INSULIN) 300 unit/mL (1.5 mL) Inject 38 Units subcutaneously once daily. 15 mL 3 Insulin [place], Disposable, (BD ULTRAFINE III MINI PEN) 31 gauge x 3/16 Use to inject insulin once daily 100 Each 3 metFORMIN ER (GLUCOPHAGE XR) 500 mg 24 hr tablet Take 2 tablets by mouth two times a day with meals. 360 tablet 3 rosuvastatin (CRESTOR) 10 mg tablet Take 1 tablet by mouth every afternoon. 90 tablet 3 carvedilol (COREG) 25 mg tablet Take 1 tablet by mouth two times a day. 180 tablet 3 chlorthalidone (HYGROTON) 25 mg tablet Take 0.5 tablets by mouth once daily. 45 tablet 2 lisinopril (ZESTRIL) 40 mg tablet Take 1 tablet by mouth once daily. 90 tablet 3 ticagrelor (BRILINTA) 90 mg tablet Take 1 tablet by mouth two times a day. 180 tablet 3 potassium chloride ER (KLOR-CON) 20 mEq tablet Take 1 tablet by mouth once daily. 5 tablet 0 Lancets Use as instructed to check blood sugar twice daily 200 Each 3 blood sugar diagnostic (BLOOD GLUCOSE TEST) test strip Use as instructed to check blood sugar twice daily 200 Each 3 Blood-Glucose Meter Use to check blood sugar 2 times per day 1 Each 0 Blood Pressure Monitor Use to monitor blood pressure 1 Each 0 Blood-Glucose Meter,Continuous (DEXCOM G7 GENERATOR ASSEMBLER) [facility] [place] to monitor glucose, IDDM, E 11.3293 aspirin, enteric coated (ECOTRIN LOW STRENGTH) 81 mg EC tablet Take 1 tablet by mouth once daily. No current facility-administered medications for this visit. Pill bottles are not present. Adherence: denies missed doses. Rx coverage: Payor: MEDICARE / Plan: MEDICARE A AND B / Product Type: Medicare / Medications affordable? Yes PHARMACOTHERAPY PREVENTATIVE MEDS: On MARY BETH/ARB: Yes On Statin: Yes On ASA: Yes EXAM: There were no vitals taken for this visit. Last 3 Encounter BP Readings: Date: BP: 07/21/2024 138/83 06/24/2024 91/53 06/05/2024 137/73 Wt: 88 kg (194 lb) BMI: 30.38 kg/(m2) LABS: Lab Results Component Value Date HBA1C 7.5 06/16/2024 HBA1C 7.3 01/23/2024 HBA1C 7.5 08/15/2023 HBA1C 7.9 12/13/2021 HBA1C 9.1 04/05/2020 HBA1C 9.0 11/03/2019 HBA1C 8.4 03/14/2019 HBA1C 8.0 08/24/2018 Glucose 157 06/16/2024 BUN 17 06/16/2024 Creatinine 0.81 06/16/2024 Sodium 143 06/16/2024 Potassium 4.1 06/16/2024 Chloride 104 06/16/2024 CO2 28 06/16/2024 Protein, Total 7.4 06/16/2024 Albumin 4.5 06/16/2024 Calcium 10.2 06/16/2024 Alkaline Phosphatase 47 06/16/2024 Bilirubin, Total 1.4 06/16/2024 AST 19 06/16/2024 ALT 20 06/16/2024 Lab Results Component Value Date CHOL 92 12/04/2023 CHOL 146 04/05/2020 LDL 8 12/04/2023 LDL 53 04/05/2020 HDL 33 12/04/2023 HDL 31 04/05/2020 TG 256 12/04/2023 TG 310 04/05/2020 Albumin/Creat Ratio (mg/g) Date Value 12/04/2023 134 (H) eGFR-All Other Races Date Value 06/09/2021 >60 04/05/2020 >60 . Estimated Glomerular Filtration Rate (mL/min/1.73m?) Date Value 06/16/2024 95 ASSESSMENT/PLAN: 1. Type 2 diabet (more content not included)... [facility] 07-21-2024 Instructions Ryann Montiel APRN.ROUGHENER, DNP - 07/21/2024 9:31 AM EDT We discussed your prostate health and elevated PSA levels: - Your prostate is enlarged, which is likely contributing to your elevated PSA levels. Other potential causes of elevated PSA, such as infection or recent instrumentation, were ruled out during this visit. - You are currently taking tamsulosin (Flomax) to help empty your bladder. We increased your dosage to 0.4 mg twice daily (one capsule in the morning and one at bedtime). This adjustment may help reduce the amount of urine retained in your bladder and lower your PSA levels. A new prescription has been sent to your mail-order pharmacy ([facility]). - We performed a prostate exam today, which confirmed that your prostate is significantly enlarged. This may limit the effectiveness of medication alone in managing your symptoms. - We will recheck your PSA levels after October 06, 2023, to assess whether the medication adjustment has improved your condition. Please schedule this blood test anytime after that date. We discussed potential next steps if your symptoms do not improve: - If the increased tamsulosin dosage does not sufficiently improve your symptoms, we may consider additional options, including: - Adding a second medication, which could take 3-6 months to show results. - Referring you to a urologist for further evaluation and discussion of minimally invasive surgical options. This would require updated imaging, including a cystoscopy and prostate ultrasound, to determine the size and shape of your prostate and assess your candidacy for specific procedures. We discussed your prostate health and elevated PSA levels: - Your prostate is enlarged, which is likely contributing to your elevated PSA levels. Other potential causes of elevated PSA, such as infection or recent instrumentation, were ruled out during this visit. - You are currently taking tamsulosin (Flomax) to help empty your bladder. We increased your dosage to 0.4 mg twice daily (one capsule in the morning and one at bedtime). This adjustment may help reduce the amount of urine retained in your bladder and lower your PSA levels. A new prescription has been sent to your mail-order pharmacy ([facility]). - We performed a prostate exam today, which confirmed that your prostate is significantly enlarged. This may limit the effectiveness of medication alone in managing your symptoms. - We will recheck your PSA levels after October 06, 2023, to assess whether the medication adjustment has improved your condition. Please schedule this blood test anytime after that date. We discussed potential next steps if your symptoms do not improve: - If the increased tamsulosin dosage does not sufficiently improve your symptoms, we may consider additional options, including: - Adding a second medication, which could take 3-6 months to show results. - Referring you to a urologist for further evaluation and discussion of minimally invasive surgical options. This would require updated imaging, including a cystoscopy and prostate ultrasound, to determine the size and shape of your prostate and assess your candidacy for specific procedures. Follow-up: - Please return to the clinic in 4 weeks for a follow-up visit. At that time, we will perform a bladder scan to evaluate your progress and discuss next steps based on your response to the medication adjustment. Additional notes: - Your urinalysis today showed no signs of infection or blood in your urine, which is a positive finding. - Continue monitoring for any new or worsening symptoms, such as difficulty urinating, blood in your urine, or increased urinary frequency. If these occur, please contact our office. - Please return to the clinic in 4 weeks for a follow-up visit. At that time, we will perform a bladder scan to evaluate your progress and discuss next steps based on your response to the medication adjustment. Additional notes: - Your urinalysis today showed no signs of infection or blood in your urine, which is a positive finding. - Continue monitoring for any new or worsening symptoms, such as difficulty urinating, blood in your urine, or increased urinary frequency. If these occur, please contact our office. documented in this encounter [facility] 07-21-2024 Note HNO ID: [id number] Author: RYANN MONTIEL APRN.CNP, DNP Service: ? Author Type: Nurse Practitioner Type: Progress Notes Filed: 07/21/2024 09:45 Note Text: [facility] PSA/PROSTATE EVALUATION HISTORY AND PHYSICAL EXAM PATIENT: Erik Clarke (68 year old) PCP: Denis Rivero MD REFERRING Provider: Denis Rivero MD Consultation requested by Dr. Denis Rivero [address] [facility] [id number] for an opinion regarding Elevated PSA and my final recommendations will be communicated back to the requesting physician by way of shared Medical record or letter via [place] mail. CC: Elevated PSA HPI: The patient is 68 year old and is referred for evaluation of elevated PSA. Past Med Hx: BPH, DM2, HTN, HLD Recent PSA elevation was noted to be 4.66ng/mL. Prior studies include PSA of 2.32 in 2019 No prior Bx or MRI of prostate The patient has a history of BPH and was started on tamsulosin (Flomax) by urology in 2020, which has provided significant symptomatic relief. He was evaluated by urology in 2020 for hematuria, at which time a cystoscopy revealed trilobular occlusive disease and moderate trabeculations consistent with bladder outlet obstruction secondary to an enlarged prostate. He denies current hematuria. Recent lab results indicate an elevated PSA level. He denies a known family history of prostate, bladder, or kidney cancer. He has not undergone any recent urological instrumentation, such as cystoscopy or catheterization. He denies nocturia. PRESENTING HISTORY: Hematuria: none Obstructive voiding symptoms: none. Irritative voiding symptoms: frequency Urinary retention: (HIGHER PVRs) Urinary incontinence: no Urinary tract infection: no Patient Entered Questionnaires: INTERNATIONAL PROSTATE SYMPTOM SCORE (I-PSS) 1)INCOMPLETE EMPTYING Over the past month, how often have you had a sensation of not emptying your bladder completely after you finished urinating? SCORE: 1- Less than 1 time in 5 2)FREQUENCY Over the past month, how often have you had to urinate again less than two hours after you finished urinating? SCORE: 2- less than half the time 3)INTERMITTENCY Over the past month, how often have you found you stopped and started again several times when you urinated? SCORE: 2- less than half the time 4)URGENCY Over the past month, how often have you found it difficult to postpone urination? SCORE: 1- Less than 1 time in 5 5)WEAK STREAM Over the past month, how often have you had a weak stream? SCORE: 1- Less than 1 time in 5 6)STRAINING Over the past month, how often have you had to push or strain to begin urination SCORE: 0- Not at all 7)NOCTURIA Over the past month, how many times did you most typically get up to urinate from the time you went to bed at night until the time you get up in the morning? SCORE:1 TOTAL I-PSS SCORE: 10 QUALITY OF LIFE DUE TO URINARY SYMPTOMS If you were to spend the rest of yur life with your urinary condition just the way it is now, how would you feel about that? 2- Mostly Satisfied PROMIS Global Health 01/05/2020 11/15/2023 02/21/2024 PROMIS Global Health Scale Physical Health Percentile 31 53 31 Mental Health Percentile 26 34 53 Patient-reported Percentiles provide an indication of how the patient's score ranks in relation to the general population. Higher percentile rankings indicate better function/quality of life. 50th percentile is the average of the general population and indicates half of respondents had a worse score. MEDICATIONS: Current Outpatient Medications Medication Sig Blood-Glucose Sensor (Anne Fogarty G7 SENSOR) yesenia APPLY NEW SENSOR EVERY 10 DAYS tirzepatide (MOUNJARO) 10 mg/0.5 mL pen injector Inject 10 mg subcutaneously one time a week. empagliflozin (JARDIANCE) 10 mg tablet Take 1 tablet by mouth daily with breakfast. insulin glargine U-300 conc (TOUJEO SOLOSTAR U-300 INSULIN) 300 unit/mL (1.5 mL) Inject 38 Units subcutaneously once daily. Insulin [place], Disposable, (BD ULTRAFINE III MINI PEN) 31 gauge x 3/16 Use to inject insulin once daily metFORMIN ER (GLUCOPHAGE XR) 500 mg 24 hr tablet Take 2 tablets by mouth two times a day with meals. rosuvastatin (CRESTOR) 10 mg tablet Take 1 tablet by mouth every afternoon. carvedilol (COREG) 25 mg tablet Take 1 tablet by mouth two times a day. chlorthalidone (HYGROTON) 25 mg tablet Take 0.5 tablets by mouth once daily. lisinopril (ZESTRIL) 40 mg tablet Take 1 tablet by mouth once daily. ticagrelor (BRILINTA) 90 mg tablet Take 1 tablet by mouth two times a day. Lancets Use as instructed to check blood sugar twice daily blood sugar diagnostic (BLOOD GLUCOSE TEST) test strip Use as instructed to check blood sugar twice daily Blood-Glucose Meter Use to check blood sugar 2 times per day Blood Pressure Monitor Use to monitor blood pressure Blood-Glucose Meter,Contin (more content not included)... [facility] 07-21-2024 History of Present illness Narrative Images from the original note were not included. [facility] PSA/PROSTATE EVALUATION HISTORY AND PHYSICAL EXAM PATIENT: Erik Clarke (68 year old) PCP: Denis Rivero MD REFERRING Provider: Denis Rivero MD Consultation requested by Dr. Denis Rivero [address] [facility] [id number] for an opinion regarding Elevated PSA and my final recommendations will be communicated back to the requesting physician by way of shared Medical record or letter via [place] mail. CC: Elevated PSA HPI: The patient is 68 year old and is referred for evaluation of elevated PSA. Past Med Hx: BPH, DM2, HTN, HLD Recent PSA elevation was noted to be 4.66ng/mL. Prior studies include PSA of 2.32 in 2019 No prior Bx or MRI of prostate The patient has a history of BPH and was started on tamsulosin (Flomax) by urology in 2020, which has provided significant symptomatic relief. He was evaluated by urology in 2020 for hematuria, at which time a cystoscopy revealed trilobular occlusive disease and moderate trabeculations consistent with bladder outlet obstruction secondary to an enlarged prostate. He denies current hematuria. Recent lab results indicate an elevated PSA level. He denies a known family history of prostate, bladder, or kidney cancer. He has not undergone any recent urological instrumentation, such as cystoscopy or catheterization. He denies nocturia. PRESENTING HISTORY: Hematuria: none Obstructive voiding symptoms: none. Irritative voiding symptoms: frequency Urinary retention: (HIGHER PVRs) Urinary incontinence: no Urinary tract infection: no Patient Entered Questionnaires: INTERNATIONAL PROSTATE SYMPTOM SCORE (I-PSS) 1)INCOMPLETE EMPTYING Over the past month, how often have you had a sensation of not emptying your bladder completely after you finished urinating? SCORE: 1- Less than 1 time in 5 2)FREQUENCY Over the past month, how often have you had to urinate again less than two hours after you finished urinating? SCORE: 2- less than half the time 3)INTERMITTENCY Over the past month, how often have you found you stopped and started again several times when you urinated? SCORE: 2- less than half the time 4)URGENCY Over the past month, how often have you found it difficult to postpone urination? SCORE: 1- Less than 1 time in 5 5)WEAK STREAM Over the past month, how often have you had a weak stream? SCORE: 1- Less than 1 time in 5 6)STRAINING Over the past month, how often have you had to push or strain to begin urination SCORE: 0- Not at all 7)NOCTURIA Over the past month, how many times did you most typically get up to urinate from the time you went to bed at night until the time you get up in the morning? SCORE:1 TOTAL I-PSS SCORE: 10 QUALITY OF LIFE DUE TO URINARY SYMPTOMS If you were to spend the rest of yur life with your urinary condition just the way it is now, how would you feel about that? 2- Mostly Satisfied PROMIS Global Health 01/05/2020 11/15/2023 02/21/2024 PROMIS Global Health Scale Physical Health Percentile 31 53 31 Mental Health Percentile 26 34 53 Patient-reported Percentiles provide an indication of how the patient's score ranks in relation to the general population. Higher percentile rankings indicate better function/quality of life. 50th percentile is the average of the general population and indicates half of respondents had a worse score. MEDICATIONS: Current Outpatient Medications Medication Sig Blood-Glucose Sensor ([employer] G7 SENSOR) yesenia APPLY NEW SENSOR EVERY 10 DAYS tirzepatide (MOUNJARO) 10 mg/0.5 mL pen injector Inject 10 mg subcutaneously one time a week. empagliflozin (JARDIANCE) 10 mg tablet Take 1 tablet by mouth daily with breakfast. insulin glargine U-300 conc (TOUJEO SOLOSTAR U-300 INSULIN) 300 unit/mL (1.5 mL) Inject 38 Units subcutaneously once daily. Insulin [place], Disposable, (BD ULTRAFINE III MINI PEN) 31 gauge x 3/16 Use to inject insulin once daily metFORMIN ER (GLUCOPHAGE XR) 500 mg 24 hr tablet Take 2 tablets by mouth two times a day with meals. rosuvastatin (CRESTOR) 10 mg tablet Take 1 tablet by mouth every afternoon. carvedilol (COREG) 25 mg tablet Take 1 tablet by mouth two times a day. chlorthalidone (HYGROTON) 25 mg tablet Take 0.5 tablets by mouth once daily. lisinopril (ZESTRIL) 40 mg tablet Take 1 tablet by mouth once daily. ticagrelor (BRILINTA) 90 mg tablet Take 1 tablet by mouth two times a day. Lancets Use as instructed to check blood sugar twice daily blood sugar diagnostic (BLOOD GLUCOSE TEST) test strip Use as instructed to check blood sugar twice daily Blood-Glucose Meter Use to check blood sugar 2 times per day Blood Pressure Monitor Use to monitor blood pressure Blood-Glucose Meter,Continuous (DEXCOM G7 GENERATOR ASSEMBLER) misc Use continuously to monitor glucose, IDDM, E 11.3293 aspirin, enteric coated (ECOTRIN LOW STRENGTH) 81 mg EC tablet Take 1 tablet by mouth once daily. tamsulosin (FLOMAX) 0.4 mg Take 1 capsule by mouth two times a day. potassium chloride ER (KLOR-CON) 20 mEq tablet Take 1 tablet by mouth once daily. No current facility-administered medications for this visit. HISTORY: PAST MEDICAL HISTORY Diagnosis Date BPH (benign prostatic hypertrophy) with urinary retention 01/22/2012 Bradycardia Coronary artery disease involving [place] coronary artery of [place] heart without angina pectoris 05/30/2019 History: s/p CATRACHITA. On Brilinta ED (erectile dysfunction) HOCM (hypertrophic obstructive cardiomyopathy) (HCC) 05/15/2023 History: HOCM Hyperlipidemia LDL goal < 100 01/22/2012 Hypertension 01/22/2012 Nonrheumatic aortic (valve) stenosis 05/30/2019 History: Severe Obesity S/P AVR 09/18/2023 S/P myomectomy 09/18/2023 Status post insertion of drug eluting coronary artery stent 08/28/2022 Type 2 diabetes mellitus not at goal 01/22/2012 PAST SURGICAL HISTORY Procedure Laterality Date CARDIAC CATHETERIZATION HX 1999, 2004 no blockages, mildly leaky valve LEFT HEART CATH,PERCUTANEOUS 06/2022 stent placed PAST SURGICAL HISTORY OF 12/2015 L3-S1 laminectomy, decompression PAST SURGICAL HISTORY OF 01/16/2017 Lumbar reexploration L3-S1 with laminectomy and decompression FAMILY HISTORY Problem Relation Age of Onset Diabetes Mother Heart Father Diabetes Father Social History Tobacco Use Smoking status: Former Current packs/day: 0.00 Types: Cigarettes Quit date: 01/21/2010 Years since quittin.5 Passive exposure: Never Smokeless tobacco: Current Types: Chew Tobacco comments: Patient states he has been chewing since he was younger - about a half can. Patient states it is the pouch type. Vaping Use Vaping status: Never Used Substance Use Topics Alcohol use: No Drug use: No LABS: Latest Ref Rng 07/21/2024 GLUCOSE UA (POCT) Negative mg/dL >=1000 ! BILIRUBIN UA (POCT) Negative Negative KETONE UA (POCT) Negative mg/dL Negative SPECIFIC GRAVITY UA (POCT) 1.005 - 1.030 1.015 HEMOGLOBIN/BLOOD UA (POCT) Negative Negative PH UA (POCT) 4.5 - 8.0 7.0 PROTEIN UA (POCT) Negative mg/dL Negative UROBILINOGEN UA (POCT) Normal E.U./dL 0.2 NITRITE UA (POCT) Negative Negative LEUKOCYTES UA (POCT) Negative Negative COLOR UA (POCT) Yellow CLARITY UA (POCT) Clear Legend: ! Abnormal Creatinine Creatinine Date Value Ref Range Status 06/16/2024 0.81 0.73 - 1.22 mg/dL Final 01/23/2024 0.74 0.73 - 1.22 mg/dL Final 12/04/2023 0.69 (L) 0.73 - 1.22 mg/dL Final 11/18/2023 0.53 (L) 0.73 - 1.22 mg/dL Final PSA PSA (ng/mL) Date Value 04/21/2020 3.88 PSA Screening Date Value 06/16/2024 4.66 ng/mL 08/24/2017 2.32 ng/mL 01/22/2012 1.50 ng/mL 02/17/2009 1.3 NG/ML OFFICE DATA: POST-VOID RESIDUAL BLADDER VOLUME: YES, 316 cc IMAGING No results found. No results found. No results found. Review of Systems: PAIN ASSESSMENT: CURRENTLY HAVING NO PAIN GENERAL: No weight loss, malaise or fevers GI: No nausea, vomiting MUSCULOSKELETAL: Negative for generalized joint pain SKIN: Negative for rash HEMATOLOGY/LYMPHOLOGY: Negative for swollen nodes All other systems reviewed and noncontributory PHYSICAL EXAMINATION: Participation of a Provider, fellow, resident, medical student, or advanced practice provider student in performing the sensitive examination was discussed with the patient or authorized surgical device sales representative. The patient or authorized surgical device sales representative has agreed to proceed with the sensitive examination. VITALS: BP 138/83 Pulse 84 Resp 16 Ht 170.2 cm (5' 7) Wt 88 kg (194 lb) SpO2 97% BMI 30.38 kg/m GENERAL: alert, no distress, normal affect RESPIRATORY: normal effort GENITAL: - SCROTUM: no rashes, no edema RECTAL: approximately 65 g prostate, no nodules PELVIC FLOOR: good tone, no tenderness EXTREMITIES: normal SKIN: normal NEUROLOGIC: normal ASSESSMENT and PLAN 1. Elevated PSA - ICD9: 790.93, ICD10: R97.20 2. Benign prostatic hyperplasia with incomplete bladder emptying - ICD9: 600.01, 788.21, ICD10: N40.1, R39.14 (primary diagnosis) UA + glu PVR = 316ml PSA slightly elevated, likely due to residual urine volume secondary to benign prostatic hyperplasia (BPH). Digital rectal exam reveals significant prostatic enlargement. Previous cystoscopy in 2020 showed trilobular occlusive disease and moderate trabeculations consistent with bladder outlet obstruction. No fhx of Pr ca. Discussed the implications/etiologies of elevated PSA. Discussed possible causes of elevated PSA: including BPH, recent ejaculation, normal aging, prostatitis (infection/inflammation), UTI, Urinary retention and prostate cancer. Talked about approaches which would include surveillance with PSA rechecks at regular intervals, MRI of prostate followed by biopsy, or standard TRUS Bx. After discussing the pros and cons of each approach we decided to proceed with Free PSA. - Discussed Cysto/TRUS - Increased Tamsulosin dosage to 0.4 mg orally twice daily; instructed to take one capsule in the morning and one at bedtime. - Sent prescription to [facility] mail order pharmacy. - Recheck PSA levels after 3 months of adjusted Tamsulosin therapy, around October 05. - Follow-up appointment in 4 weeks to assess symptom improvement and perform a bladder scan. - Discussed potential for minimally invasive surgical options if medication adjustment is insufficient. Orders: - BLADDER SCAN - UA DIP, URINE (POC) - TAMSULOSIN 0.4 MG CAPSULE - PROSTATE SPECIFIC ANTIGEN, FREE The patient consented to the use of [employer] software for draft documentation of the visit consistent with [facility] s Notice of Privacy Practices. Ryann Montiel, KALIN, ROUGHENER Department of Urology [facility] documented in this encounter [facility] 06-27-2024 Telephone encounter Note Called [facility] pharmacy to check on status of Dexcom G7 sensors. certified emergency vehicle technician states Dexcom G7 sensors are backordered at [facility] and unknown when will be able to fill. Of note, also states unsure if covered by insurance at [facility] do not have insurance on file. To avoid further delays, will send Dexcom G7 order to [facility] to process through DME under Medicare. Sent Rx electronically to [facility]. Will follow up with [facility] rep and send insurance information for processing. Ophelia Null PharmD, VESTA Primary Care Clinical Industrial Hygiene Manager [facility] 06-27-2024 Miscellaneous Notes Called [facility] pharmacy to check on status of Dexcom G7 sensors. certified emergency vehicle technician states Dexcom G7 sensors are backordered at [facility] and unknown when will be able to fill. Of note, also states unsure if covered by insurance at [facility] do not have insurance on file. To avoid further delays, will send Dexcom G7 order to [facility] to process through DME under Medicare. Sent Rx electronically to [facility] Medical. Will follow up with [facility] Medical rep and send insurance information for processing. Ophelia Null PharmD, [facility] Clinical Industrial Hygiene Manager documented in this encounter [facility] 06-24-2024 Note Formatting of this n ote might be different from the original. The patient received a copy of Colonoscopy discharge instructions that contain information for how to contact the physician who performed the procedure and when to seek medical care. [facility] 06-24-2024 Miscellaneous Notes The patient received a copy of Colonoscopy discharge instructions that contain information for how to contact the physician who performed the procedure and when to seek medical care. documented in this encounter [facility] 06-24-2024 Attending History and physical note UPDATED PROCEDURAL SEDATION HISTORY AND PHYSICAL EXAMINATION SERVICE DATE: 06/24/2024 SERVICE TIME: 8:51 PHYSICAL EXAM MUST BE COMPLETED ON ADMISSION PROCEDURE: colonosocpy, possible biopsies Procedure Indications: screening for colon cancer The History and Physical (completed in the past 30 days) has been reviewed and the patient has been examined. The contents accurately reflect the patient's condition with the following additions or revisions since the H&P was completed. ASA Class: ASA Class: Patient with severe systemic disease Examination indicates no changes. AIRWAY: Airway Visualization of Uvula: Yes Mouth opening greater than 2 fingerbreadths: Yes Neck Full Range of Motion: Yes LUNGS: Lungs clear to auscultation CARDIAC: Regular rhythm,Regular rate Provisional Diagnosis/Treatment Plan: colonoscopy, possible biopsies Sedation Goal: Moderate This H&P can be found in the Electronic Medical Record. SIGNATURE: Marjorie Lee MD PATIENT NAME: Erik Clarke DATE: June 24, 2024 TIME: 8:52 AM Source Note - Marjorie Lee MD - 06/24/2024 9:00 AM EST HISTORY AND PHYSICAL Erik Clarke 1955 REFERRING PHYSICIAN: Denis Rivero MD CHIEF COMPLAINT: No chief complaint on file. HPI: The patient is a 68 year old male here for colonoscopy for screening for colon cancer. Last colonoscopy about 10 years ago PAST MEDICAL HISTORY Diagnosis Date BPH (benign prostatic hypertrophy) with urinary retention 01/22/2012 Bradycardia Coronary artery disease involving [place] coronary artery of [place] heart without angina pectoris 05/30/2019 History: s/p CATRACHITA. On Brilinta ED (erectile dysfunction) HOCM (hypertrophic obstructive cardiomyopathy) (HCC) 05/15/2023 History: HOCM Hyperlipidemia LDL goal < 100 01/22/2012 Hypertension 01/22/2012 Nonrheumatic aortic (valve) stenosis 05/30/2019 History: Severe Obesity S/P AVR 09/18/2023 S/P myomectomy 09/18/2023 Status post insertion of drug eluting coronary artery stent 08/28/2022 Type 2 diabetes mellitus not at goal 01/22/2012 PAST SURGICAL HISTORY Procedure Laterality Date CARDIAC CATHETERIZATION HX 1999, 2004 no blockages, mildly leaky valve LEFT HEART CATH,PERCUTANEOUS 06/2022 stent placed PAST SURGICAL HISTORY OF 12/2015 L3-S1 laminectomy, decompression PAST SURGICAL HISTORY OF 01/16/2017 Lumbar reexploration L3-S1 with laminectomy and decompression Current Outpatient Medications Medication Sig carvedilol (COREG) 25 mg tablet Take 1 tablet by mouth two times a day. chlorthalidone (HYGROTON) 25 mg tablet Take 0.5 tablets by mouth once daily. lisinopril (ZESTRIL) 40 mg tablet Take 1 tablet by mouth once daily. tamsulosin (FLOMAX) 0.4 mg Take 1 capsule by mouth once daily. Blood-Glucose Sensor (DEXUdorse G7 SENSOR) yesenia APPLY NEW SENSOR EVERY 10 DAYS tirzepatide (MOUNJARO) 10 mg/0.5 mL pen injector Inject 10 mg subcutaneously one time a week. empagliflozin (JARDIANCE) 10 mg tablet Take 1 tablet by mouth daily with breakfast. insulin glargine U-300 conc (TOUJEO SOLOSTAR U-300 INSULIN) 300 unit/mL (1.5 mL) Inject 38 Units subcutaneously once daily. Insulin [place], Disposable, (BD ULTRAFINE III MINI PEN) 31 gauge x 3/16 Use to inject insulin once daily metFORMIN ER (GLUCOPHAGE XR) 500 mg 24 hr tablet Take 2 tablets by mouth two times a day with meals. rosuvastatin (CRESTOR) 10 mg tablet Take 1 tablet by mouth every afternoon. ticagrelor (BRILINTA) 90 mg tablet Take 1 tablet by mouth two times a day. potassium chloride ER (KLOR-CON) 20 mEq tablet Take 1 tablet by mouth once daily. Lancets Use as instructed to check blood sugar twice daily blood sugar diagnostic (BLOOD GLUCOSE TEST) test strip Use as instructed to check blood sugar twice daily Blood-Glucose Meter Use to check blood sugar 2 times per day Blood Pressure Monitor Use to monitor blood pressure Blood-Glucose Meter,Continuous (DEXCOM G7 GENERATOR ASSEMBLER) [facility] [place] to monitor glucose, IDDM, E 11.7019 aspirin, enteric coated (ECOTRIN LOW STRENGTH) 81 mg EC tablet Take 1 tablet by mouth once daily. Current Facility-Administered Medications Medication Dose Route Frequency lactated ringers iv infusion 30 mL/hr INTRAVENOUS CONTINUOUS ALLERGIES: Verapamil PERSONAL HISTORY: Social History Tobacco Use Smoking status: Former Current packs/day: 0.00 Types: Cigarettes Quit date: 01/21/2010 Years since quittin.4 Smokeless tobacco: Current Types: Chew Tobacco comments: Patient states he has been chewing since he was younger - about a half can. Patient states it is the pouch type. Vaping Use Vaping status: Never Used Substance Use Topics Alcohol use: No Drug use: No FAMILY HISTORY Problem Relation Age of Onset Diabetes Mother Heart Father Diabetes Father REVIEW OF SYMPTOMS: Denies chest pain Denies shortness of breath PHYSICAL EXAMINATION: General: The patient is 68 year old male, well nourished, well hydrated in no acute distress. The patient is oriented to time, place, and person. VITALS: Blood pressure 128/65, pulse 86, temperature 36.3 C (97.3 F), temperature source Temporal Artery, resp. rate 16, SpO2 98%. There is no height or weight on file to calculate BMI. Head - Normocephalic. EOM intact with sclera clear. Mouth with mucus membranes moist. Neck - supple with no jugular venous distention noted. Trachea is midline. Lungs - normal breath sounds, normal respiratory motion, no adventitial sounds noted. Heart - normal heart sounds. Regular rate. Abdomen - soft and benign. Extremities - no pitting edema noted. Skin - Normal skin integrity. Neurological - non focal Psych - calm and appropriate Impression: screening for colon cancer, Discussion/Plan/Recommendations: I have discussed the above with the patient. I have offered colonoscopy , possible biopsies I have explained the procedure to the patient. I have counseled the patient as to the risks of the procedure, including but not limited to: infection, bleeding, injury to any intrabdominal organs such as liver/spleen, perforation of the GI tract, inability to complete the procedure, complications of anesthesia, etc. - the patient understands. The patient wishes to proceed. I have answered all questions to the patient s satisfaction and the patient has no further questions. . Marjorie Lee MD [facility] Work Phone: 06-24-2024 History and physical note HISTORY AND PHYSICAL Erik Clarke 1955 REFERRING PHYSICIAN: Denis Rivero MD CHIEF COMPLAINT: No chief complaint on file. HPI: The patient is a 68 year old male here for colonoscopy for screening for colon cancer. Last colonoscopy about 10 years ago PAST MEDICAL HISTORY Diagnosis Date BPH (benign prostatic hypertrophy) with urinary retention 01/22/2012 Bradycardia Coronary artery disease involving [place] coronary artery of [place] heart without angina pectoris 05/30/2019 History: s/p CATRACHITA. On Brilinta ED (erectile dysfunction) HOCM (hypertrophic obstructive cardiomyopathy) ([facility]) 05/15/2023 History: HOCM Hyperlipidemia LDL goal < 100 01/22/2012 Hypertension 01/22/2012 Nonrheumatic aortic (valve) stenosis 05/30/2019 History: Severe Obesity S/P AVR 09/18/2023 S/P myomectomy 09/18/2023 Status post insertion of drug eluting coronary artery stent 08/28/2022 Type 2 diabetes mellitus not at goal 01/22/2012 PAST SURGICAL HISTORY Procedure Laterality Date CARDIAC CATHETERIZATION HX 1999, 2004 no blockages, mildly leaky valve LEFT HEART CATH,PERCUTANEOUS 06/2022 stent placed PAST SURGICAL HISTORY OF 12/2015 L3-S1 laminectomy, decompression PAST SURGICAL HISTORY OF 01/16/2017 Lumbar reexploration L3-S1 with laminectomy and decompression Current Outpatient Medications Medication Sig carvedilol (COREG) 25 mg tablet Take 1 tablet by mouth two times a day. chlorthalidone (HYGROTON) 25 mg tablet Take 0.5 tablets by mouth once daily. lisinopril (ZESTRIL) 40 mg tablet Take 1 tablet by mouth once daily. tamsulosin (FLOMAX) 0.4 mg Take 1 capsule by mouth once daily. Blood-Glucose Sensor ([employer] G7 SENSOR) yesenia APPLY NEW SENSOR EVERY 10 DAYS tirzepatide (MOUNJARO) 10 mg/0.5 mL pen injector Inject 10 mg subcutaneously one time a week. empagliflozin (JARDIANCE) 10 mg tablet Take 1 tablet by mouth daily with breakfast. insulin glargine U-300 conc (TOUJEO SOLOSTAR U-300 INSULIN) 300 unit/mL (1.5 mL) Inject 38 Units subcutaneously once daily. Insulin [place], Disposable, (BD ULTRAFINE III MINI PEN) 31 gauge x 3/16 Use to inject insulin once daily metFORMIN ER (GLUCOPHAGE XR) 500 mg 24 hr tablet Take 2 tablets by mouth two times a day with meals. rosuvastatin (CRESTOR) 10 mg tablet Take 1 tablet by mouth every afternoon. ticagrelor (BRILINTA) 90 mg tablet Take 1 tablet by mouth two times a day. potassium chloride ER (KLOR-CON) 20 mEq tablet Take 1 tablet by mouth once daily. Lancets Use as instructed to check blood sugar twice daily blood sugar diagnostic (BLOOD GLUCOSE TEST) test strip Use as instructed to check blood sugar twice daily Blood-Glucose Meter Use to check blood sugar 2 times per day Blood Pressure Monitor Use to monitor blood pressure Blood-Glucose Meter,Continuous (DEXCOM G7 GENERATOR ASSEMBLER) misc Use continuously to monitor glucose, IDDM, E 11.3293 aspirin, enteric coated (ECOTRIN LOW STRENGTH) 81 mg EC tablet Take 1 tablet by mouth once daily. Current Facility-Administered Medications Medication Dose Route Frequency lactated ringers iv infusion 30 mL/hr INTRAVENOUS CONTINUOUS ALLERGIES: Verapamil PERSONAL HISTORY: Social History Tobacco Use Smoking status: Former Current packs/day: 0.00 Types: Cigarettes Quit date: 01/21/2010 Years since quittin.4 Smokeless tobacco: Current Types: Chew Tobacco comments: Patient states he has been chewing since he was younger - about a half can. Patient states it is the pouch type. Vaping Use Vaping status: Never Used Substance Use Topics Alcohol use: No Drug use: No FAMILY HISTORY Problem Relation Age of Onset Diabetes Mother Heart Father Diabetes Father REVIEW OF SYMPTOMS: Denies chest pain Denies shortness of breath PHYSICAL EXAMINATION: General: The patient is 68 year old male, well nourished, well hydrated in no acute distress. The patient is oriented to time, place, and person. VITALS: Blood pressure 128/65, pulse 86, temperature 36.3 C (97.3 F), temperature source Temporal Artery, resp. rate 16, SpO2 98%. There is no height or weight on file to calculate BMI. Head - Normocephalic. EOM intact with sclera clear. Mouth with mucus membranes moist. Neck - supple with no jugular venous distention noted. Trachea is midline. Lungs - normal breath sounds, normal respiratory motion, no adventitial sounds noted. Heart - normal heart sounds. Regular rate. Abdomen - soft and benign. Extremities - no pitting edema noted. Skin - Normal skin integrity. Neurological - non focal Psych - calm and appropriate Impression: screening for colon cancer, Discussion/Plan/Recommendations: I have discussed the above with the patient. I have offered colonoscopy , possible biopsies I have explained the procedure to the patient. I have counseled the patient as to the risks of the procedure, including but not limited to: infection, bleeding, injury to any intrabdominal organs such as liver/spleen, perforation of the GI tract, inability to complete the procedure, complications of anesthesia, etc. - the patient understands. The patient wishes to proceed. I have answered all questions to the patient s satisfaction and the patient has no further questions. . Marjorie Lee MD [facility] 06-24-2024 History and physical note UPDATED PROCEDURAL SEDATION HISTORY AND PHYSICAL EXAMINATION SERVICE DATE: 06/24/2024 SERVICE TIME: 8:51 PHYSICAL EXAM MUST BE COMPLETED ON ADMISSION PROCEDURE: colonosocpy, possible biopsies Procedure Indications: screening for colon cancer The History and Physical (completed in the past 30 days) has been reviewed and the patient has been examined. The contents accurately reflect the patient's condition with the following additions or revisions since the H&P was completed. ASA Class: ASA Class: Patient with severe systemic disease Examination indicates no changes. AIRWAY: Airway Visualization of Uvula: Yes Mouth opening greater than 2 fingerbreadths: Yes Neck Full Range of Motion: Yes LUNGS: Lungs clear to auscultation CARDIAC: Regular rhythm,Regular rate Provisional Diagnosis/Treatment Plan: colonoscopy, possible biopsies Sedation Goal: Moderate This H&P can be found in the Electronic Medical Record. SIGNATURE: Marjorie Lee MD PATIENT NAME: Erik Clarke DATE: June 24, 2024 TIME: 8:52 AM Source Note - Marjorie Lee MD - 06/24/2024 9:00 AM EST HISTORY AND PHYSICAL Erik Clarke 1955 REFERRING PHYSICIAN: Denis Rivero MD CHIEF COMPLAINT: No chief complaint on file. HPI: The patient is a 68 year old male here for colonoscopy for screening for colon cancer. Last colonoscopy about 10 years ago PAST MEDICAL HISTORY Diagnosis Date BPH (benign prostatic hypertrophy) with urinary retention 01/22/2012 Bradycardia Coronary artery disease involving [place] coronary artery of [place] heart without angina pectoris 05/30/2019 History: s/p CATRACHITA. On Brilinta ED (erectile dysfunction) HOCM (hypertrophic obstructive cardiomyopathy) (HCC) 05/15/2023 History: HOCM Hyperlipidemia LDL goal < 100 01/22/2012 Hypertension 01/22/2012 Nonrheumatic aortic (valve) stenosis 05/30/2019 History: Severe Obesity S/P AVR 09/18/2023 S/P myomectomy 09/18/2023 Status post insertion of drug eluting coronary artery stent 08/28/2022 Type 2 diabetes mellitus not at goal 01/22/2012 PAST SURGICAL HISTORY Procedure Laterality Date CARDIAC CATHETERIZATION HX 1999, 2004 no blockages, mildly leaky valve LEFT HEART CATH,PERCUTANEOUS 06/2022 stent placed PAST SURGICAL HISTORY OF 12/2015 L3-S1 laminectomy, decompression PAST SURGICAL HISTORY OF 01/16/2017 Lumbar reexploration L3-S1 with laminectomy and decompression Current Outpatient Medications Medication Sig carvedilol (COREG) 25 mg tablet Take 1 tablet by mouth two times a day. chlorthalidone (HYGROTON) 25 mg tablet Take 0.5 tablets by mouth once daily. lisinopril (ZESTRIL) 40 mg tablet Take 1 tablet by mouth once daily. tamsulosin (FLOMAX) 0.4 mg Take 1 capsule by mouth once daily. Blood-Glucose Sensor (Anne Fogarty G7 SENSOR) yesenia APPLY NEW SENSOR EVERY 10 DAYS tirzepatide (MOUNJARO) 10 mg/0.5 mL pen injector Inject 10 mg subcutaneously one time a week. empagliflozin (JARDIANCE) 10 mg tablet Take 1 tablet by mouth daily with breakfast. insulin glargine U-300 conc (TOUJEO SOLOSTAR U-300 INSULIN) 300 unit/mL (1.5 mL) Inject 38 Units subcutaneously once daily. Insulin [place], Disposable, (BD ULTRAFINE III MINI PEN) 31 gauge x 3/16 Use to inject insulin once daily metFORMIN ER (GLUCOPHAGE XR) 500 mg 24 hr tablet Take 2 tablets by mouth two times a day with meals. rosuvastatin (CRESTOR) 10 mg tablet Take 1 tablet by mouth every afternoon. ticagrelor (BRILINTA) 90 mg tablet Take 1 tablet by mouth two times a day. potassium chloride ER (KLOR-CON) 20 mEq tablet Take 1 tablet by mouth once daily. Lancets Use as instructed to check blood sugar twice daily blood sugar diagnostic (BLOOD GLUCOSE TEST) test strip Use as instructed to check blood sugar twice daily Blood-Glucose Meter Use to check blood sugar 2 times per day Blood Pressure Monitor Use to monitor blood pressure Blood-Glucose Meter,Continuous (DEXCOM G7 GENERATOR ASSEMBLER) misc Use continuously to monitor glucose, IDDM, E 11.3293 aspirin, enteric coated (ECOTRIN LOW STRENGTH) 81 mg EC tablet Take 1 tablet by mouth once daily. Current Facility-Administered Medications Medication Dose Route Frequency lactated ringers iv infusion 30 mL/hr INTRAVENOUS CONTINUOUS ALLERGIES: Verapamil PERSONAL HISTORY: Social History Tobacco Use Smoking status: Former Current packs/day: 0.00 Types: Cigarettes Quit date: 01/21/2010 Years since quittin.4 Smokeless tobacco: Current Types: Chew Tobacco comments: Patient states he has been chewing since he was younger - about a half can. Patient states it is the pouch type. Vaping Use Vaping status: Never Used Substance Use Topics Alcohol use: No Drug use: No FAMILY HISTORY Problem Relation Age of Onset Diabetes Mother Heart Father Diabetes Father REVIEW OF SYMPTOMS: Denies chest pain Denies shortness of breath PHYSICAL EXAMINATION: General: The patient is 68 year old male, well nourished, well hydrated in no acute distress. The patient is oriented to time, place, and person. VITALS: Blood pressure 128/65, pulse 86, temperature 36.3 C (97.3 F), temperature source Temporal Artery, resp. rate 16, SpO2 98%. There is no height or weight on file to calculate BMI. Head - Normocephalic. EOM intact with sclera clear. Mouth with mucus membranes moist. Neck - supple with no jugular venous distention noted. Trachea is midline. Lungs - normal breath sounds, normal respiratory motion, no adventitial sounds noted. Heart - normal heart sounds. Regular rate. Abdomen - soft and benign. Extremities - no pitting edema noted. Skin - Normal skin integrity. Neurological - non focal Psych - calm and appropriate Impression: screening for colon cancer, Discussion/Plan/Recommendations: I have discussed the above with the patient. I have offered colonoscopy , possible biopsies I have explained the procedure to the patient. I have counseled the patient as to the risks of the procedure, including but not limited to: infection, bleeding, injury to any intrabdominal organs such as liver/spleen, perforation of the GI tract, inability to complete the procedure, complications of anesthesia, etc. - the patient understands. The patient wishes to proceed. I have answered all questions to the patient s satisfaction and the patient has no further questions. . Marjorie Lee MD HISTORY AND PHYSICAL Erik Coco Clarke 1955 REFERRING PHYSICIAN: Denis Rivero MD CHIEF COMPLAINT: No chief complaint on file. HPI: The patient is a 68 year old male here for colonoscopy for screening for colon cancer. Last colonoscopy about 10 years ago PAST MEDICAL HISTORY Diagnosis Date BPH (benign prostatic hypertrophy) with urinary retention 01/22/2012 Bradycardia Coronary artery disease involving [place] coronary artery of [place] heart without angina pectoris 05/30/2019 History: s/p CATRACHITA. On Brilinta ED (erectile dysfunction) HOCM (hypertrophic obstructive cardiomyopathy) (HCC) 05/15/2023 History: HOCM Hyperlipidemia LDL goal < 100 01/22/2012 Hypertension 01/22/2012 Nonrheumatic aortic (valve) stenosis 05/30/2019 History: Severe Obesity S/P AVR 09/18/2023 S/P myomectomy 09/18/2023 Status post insertion of drug eluting coronary artery stent 08/28/2022 Type 2 diabetes mellitus not at goal 01/22/2012 PAST SURGICAL HISTORY Procedure Laterality Date CARDIAC CATHETERIZATION HX 19992004 no blockages, mildly leaky valve LEFT HEART CATH,PERCUTANEOUS 06/2022 stent placed PAST SURGICAL HISTORY OF 12/2015 L3-S1 laminectomy, decompression PAST SURGICAL HISTORY OF 01/16/2017 Lumbar reexploration L3-S1 with laminectomy and decompression Current Outpatient Medications Medication Sig carvedilol (COREG) 25 mg tablet Take 1 tablet by mouth two times a day. chlorthalidone (HYGROTON) 25 mg tablet Take 0.5 tablets by mouth once daily. lisinopril (ZESTRIL) 40 mg tablet Take 1 tablet by mouth once daily. tamsulosin (FLOMAX) 0.4 mg Take 1 capsule by mouth once daily. Blood-Glucose Sensor (Anne Fogarty G7 SENSOR) [place] APPLY NEW SENSOR EVERY 10 DAYS tirzepatide (MOUNJARO) 10 mg/0.5 mL pen injector Inject 10 mg subcutaneously one time a week. empagliflozin (JARDIANCE) 10 mg tablet Take 1 tablet by mouth daily with breakfast. insulin glargine U-300 conc ([employer] SOLOSTAR U-300 INSULIN) 300 unit/mL (1.5 mL) Inject 38 Units subcutaneously once daily. Insulin [place], Disposable, (BD ULTRAFINE III MINI PEN) 31 gauge x 3/16 Use to inject insulin once daily metFORMIN ER (GLUCOPHAGE XR) 500 mg 24 hr tablet Take 2 tablets by mouth two times a day with meals. rosuvastatin (CRESTOR) 10 mg tablet Take 1 tablet by mouth every afternoon. ticagrelor (BRILINTA) 90 mg tablet Take 1 tablet by mouth two times a day. potassium chloride ER (KLOR-CON) 20 mEq tablet Take 1 tablet by mouth once daily. Lancets Use as instructed to check blood sugar twice daily blood sugar diagnostic (BLOOD GLUCOSE TEST) test strip Use as instructed to check blood sugar twice daily Blood-Glucose Meter Use to check blood sugar 2 times per day Blood Pressure Monitor Use to monitor blood pressure Blood-Glucose Meter,Continuous (DEXCOM G7 GENERATOR ASSEMBLER) [facility] [place] to monitor glucose, IDDM, E 11.3293 aspirin, enteric coated (ECOTRIN LOW STRENGTH) 81 mg EC tablet Take 1 tablet by mouth once daily. Current Facility-Administered Medications Medication Dose Route Frequency lactated ringers iv infusion 30 mL/hr INTRAVENOUS CONTINUOUS ALLERGIES: Verapamil PERSONAL HISTORY: Social History Tobacco Use Smoking status: Former Current packs/day: 0.00 Types: Cigarettes Quit date: 01/21/2010 Years since quittin.4 Smokeless tobacco: Current Types: Chew Tobacco comments: Patient states he has been chewing since he was younger - about a half can. Patient states it is the pouch type. Vaping Use Vaping status: Never Used Substance Use Topics Alcohol use: No Drug use: No FAMILY HISTORY Problem Relation Age of Onset Diabetes Mother Heart Father Diabetes Father REVIEW OF SYMPTOMS: Denies chest pain Denies shortness of breath PHYSICAL EXAMINATION: General: The patient is 68 year old male, well nourished, well hydrated in no acute distress. The patient is oriented to time, place, and person. VITALS: Blood pressure 128/65, pulse 86, temperature 36.3 C (97.3 F), temperature source Temporal Artery, resp. rate 16, SpO2 98%. There is no height or weight on file to calculate BMI. Head - Normocephalic. EOM intact with sclera clear. Mouth with mucus membranes moist. Neck - supple with no jugular venous distention noted. Trachea is midline. Lungs - normal breath sounds, normal respiratory motion, no adventitial sounds noted. Heart - normal heart sounds. Regular rate. Abdomen - soft and benign. Extremities - no pitting edema noted. Skin - Normal skin integrity. Neurological - non focal Psych - calm and appropriate Impression: screening for colon cancer, Discussion/Plan/Recommendations: I have discussed the above with the patient. I have offered colonoscopy , possible biopsies I have explained the procedure to the patient. I have counseled the patient as to the risks of the procedure, including but not limited to: infection, bleeding, injury to any intrabdominal organs such as liver/spleen, perforation of the GI tract, inability to complete the procedure, complications of anesthesia, etc. - the patient understands. The patient wishes to proceed. I have answered all questions to the patient s satisfaction and the patient has no further questions. . Marjorie Lee MD documented in this encounter [facility] 06-17-2024 Telephone encounter Note Patient reports increased cost of Dexcom G7 with new insurance. States he called his insurance the other day and was recommended to have Rx sent to [facility] for potentially lower cost. Sent Rx to [facility] per patient request. If still unaffordable, may consider switching to Freestyle Ana to see if lower cost. Ophelia Null PharmD, AARONCP Primary Care Clinical Industrial Hygiene Manager [facility] 06-17-2024 Miscellaneous Notes Patient reports increased cost of Dexcom G7 with new insurance. States he called his insurance the other day and was recommended to have Rx sent to [facility] for potentially lower cost. Sent Rx to [facility] per patient request. If still unaffordable, may consider switching to Freestyle Ana to see if lower cost. Ophelia Null PharmD, VESTA Primary Care Clinical Industrial Hygiene Manager documented in this encounter [facility] 06-17-2024 Telephone encounter Note Spoke with pt, reviewed below message. Verbalized understanding, no further questions. Pt not able to schedule right now, will call back to schedule when he can [facility] 06-17-2024 Miscellaneous Notes Spoke with pt, reviewed below message. Verbalized understanding, no further questions. Pt not able to schedule right now, will call back to schedule when he can Please call and inform patient that I did get the results of his recent blood work Demonstrates elevated blood sugar as well as higher hemoglobin A1c Recommend he keep appointment with Ophelia further recommendations for blood sugar control with his diabetes 2. His PSA is much higher than what it was previous Given this elevation, would like for him to see urology Order for this has been placed Thanks documented in this encounter [facility] 06-17-2024 Telephone encounter Note Please call and inform patient that I did get the results of his recent blood work Demonstrates elevated blood sugar as well as higher hemoglobin A1c Recommend he keep appointment with Ophelia further recommendations for blood sugar control with his diabetes 2. His PSA is much higher than what it was previous Given this elevation, would like for him to see urology Order for this has been placed Thanks [facility] 06-17-2024 History of Present illness Narrative Images from the original note were not included. Primary Care Pharmacy Visit CC (Reason for Consult): (E11.9, Z79.4) Type 2 diabetes mellitus without complication, with long-term current use of insulin ([facility]) (primary encounter diagnosis) Goal(s): A1c <7% Last Collaborating Provider Visit: 06/05/[address] Rivero Erik Clarke is a 68 year old male presenting for follow up visit in person. Patient consents to pharmacy collaborative practice agreement. Last Pharmacy Visit: 04/29/24 HPI: Paid $500 for 3 months supply for CGM Just got Mounjaro. Paid $141 for 3 months Used to get the CGM through mail Called Medicare yesterday and they told him to call [facility] in [place] to have CGM order sent there Feels like the CGM helps him and would like to use it Eats sweets lately Current DM Medications: Metformin ER 500 mg #2 twice daily Jardiance 10 mg once daily Mounjaro 10 mg once weekly on Fridays Toujeo 38 units once daily Previously Trialed DM Meds: Glimepiride - changed to insulin Ariella Moser - can't remember why he stopped it Jardiance 25mg - balanitis Diet No major changes in diet. Just been eating sweets. GLYCEMIC CONTROL: Glucometer present at visit: Yes Hypoglycemia: No Past medical history reviewed. ALLERGIES Allergen Reactions Verapamil Other: See Comments Severe debilitating cluster headaches Current Outpatient Medications Medication Sig Dispense Refill tirzepatide (MOUNJARO) 10 mg/0.5 mL pen injector Inject 10 mg subcutaneously one time a week. 6 mL 4 Blood-Glucose Sensor (DEXCOM G7 SENSOR) yesenia APPLY NEW SENSOR EVERY 10 DAYS 9 Each 3 empagliflozin (JARDIANCE) 10 mg tablet Take 1 tablet by mouth daily with breakfast. 90 tablet 3 insulin glargine U-300 conc (TOUJEO SOLOSTAR U-300 INSULIN) 300 unit/mL (1.5 mL) Inject 38 Units subcutaneously once daily. 15 mL 3 Insulin [place], Disposable, (BD ULTRAFINE III MINI PEN) 31 gauge x 3/16 Use to inject insulin once daily 100 Each 3 metFORMIN ER (GLUCOPHAGE XR) 500 mg 24 hr tablet Take 2 tablets by mouth two times a day with meals. 360 tablet 3 rosuvastatin (CRESTOR) 10 mg tablet Take 1 tablet by mouth every afternoon. 90 tablet 3 carvedilol (COREG) 25 mg tablet Take 1 tablet by mouth two times a day. 180 tablet 3 chlorthalidone (HYGROTON) 25 mg tablet Take 0.5 tablets by mouth once daily. 45 tablet 2 lisinopril (ZESTRIL) 40 mg tablet Take 1 tablet by mouth once daily. 90 tablet 3 tamsulosin (FLOMAX) 0.4 mg Take 1 capsule by mouth once daily. 90 capsule 3 ticagrelor (BRILINTA) 90 mg tablet Take 1 tablet by mouth two times a day. 180 tablet 3 potassium chloride ER (KLOR-CON) 20 mEq tablet Take 1 tablet by mouth once daily. 5 tablet 0 Lancets Use as instructed to check blood sugar twice daily 200 Each 3 blood sugar diagnostic (BLOOD GLUCOSE TEST) test strip Use as instructed to check blood sugar twice daily 200 Each 3 Blood-Glucose Meter Use to check blood sugar 2 times per day 1 Each 0 Blood Pressure Monitor Use to monitor blood pressure 1 Each 0 Blood-Glucose Meter,Continuous (DEXCOM G7 GENERATOR ASSEMBLER) [facility] Use continuously to monitor glucose, IDDM, E 11.3293 aspirin, enteric coated (ECOTRIN LOW STRENGTH) 81 mg EC tablet Take 1 tablet by mouth once daily. No current facility-administered medications for this visit. Pill bottles are not present. Adherence: denies missed doses. Rx coverage: Payor: MEDICARE / Plan: MEDICARE A AND B / Product Type: Medicare / Medications affordable? Yes PHARMACOTHERAPY PREVENTATIVE MEDS: On MARY BETH/ARB: Yes On Statin: Yes On ASA: Yes EXAM: There were no vitals taken for this visit. Last 3 Encounter BP Readings: Date: BP: 06/05/2024 137/73 02/28/2024 134/80 01/01/2024 153/89 Wt: 88 kg (194 lb 0.1 oz) BMI: 29.51 kg/(m^2) LABS: Lab Results Component Value Date HBA1C 7.3 01/23/2024 HBA1C 7.5 08/15/2023 HBA1C 7.7 11/14/2022 HBA1C 7.9 12/13/2021 HBA1C 9.1 04/05/2020 HBA1C 9.0 11/03/2019 HBA1C 8.4 03/14/2019 HBA1C 8.0 08/24/2018 Glucose 157 06/16/2024 BUN 17 06/16/2024 Creatinine 0.81 06/16/2024 Sodium 143 06/16/2024 Potassium 4.1 06/16/2024 Chloride 104 06/16/2024 CO2 28 06/16/2024 Protein, Total 7.4 06/16/2024 Albumin 4.5 06/16/2024 Calcium 10.2 06/16/2024 Alkaline Phosphatase 47 06/16/2024 Bilirubin, Total 1.4 06/16/2024 AST 19 06/16/2024 ALT 20 06/16/2024 Lab Results Component Value Date CHOL 92 12/04/2023 CHOL 146 04/05/2020 LDL 8 12/04/2023 LDL 53 04/05/2020 HDL 33 12/04/2023 HDL 31 04/05/2020 TG 256 12/04/2023 TG 310 04/05/2020 Albumin/Creat Ratio (mg/g) Date Value 12/04/2023 134 (H) eGFR-All Other Races Date Value 06/09/2021 >60 04/05/2020 >60 . Estimated Glomerular Filtration Rate (mL/min/1.73m ) Date Value 06/16/2024 95 ASSESSMENT/PLAN: 1. Type 2 diabetes mellitus without complication, with long-term current use of insulin (HCC) - ICD9: 250.00, V58.67, ICD10: E11.9, Z79.4 - Uncontrolled - A1C 7.5% (06/16/24) - Continue current medications - Statin prescribed - rosuvastatin - Blood glucose monitoring on a continuous glucose monitoring schedule. PharmD to send CGM order to [facility] pharmacy per patient request - Counseled on healthy diet and regular exercise - Discussed diabetic education issues of hypoglycemic/hyperglycemic symptoms - Follow up in 1 month, sooner should any other issues arise. Alejandra Paz RPh Overdue Diabetes Health Maintenance: Up to date on diabetes-related health maintenance Follow Up: Next PCP visit: 12/10/24 Next PharmD visit: 07/22/24 I spent a total of 30 minutes on the date of the service which included preparing to see the patient, [id number] patient care, and completing clinical documentation. Patient interviewed independently by the resident. Zazueta elements of history confirmed. Agree with findings and plan as outlined by the resident. My additions to the progress note are underlined. Ophelia Null PharmD, VESTA Primary Care Clinical Industrial Hygiene Manager documented in this encounter [facility] 06-17-2024 Instructions Alejandra Paz RPh - 06/17/2024 9:00 AM EST Keep taking all of your medications as prescribed. Try to cut back on sweets. Your next appointment 07/22/2024 at 9 AM documented in this encounter [facility] 06-17-2024 Note HNO ID: [id number] Author: OPHELIA NULL RPh Service: ? Author Type: Pharmacist Type: Progress Notes Filed: 06/18/2024 12:46 Note Text: Patient interviewed independently by the resident. Zazueta elements of history confirmed. Agree with findings and plan as outlined by the resident. My additions to the progress note are underlined. Ophelia Null PharmD, VESTA Primary Care Clinical Industrial Hygiene Manager [facility] 06-17-2024 Note HNO ID: [id number] Author: OPHELIA NULL formerly [facility]: ? Author Type: Pharmacist Type: Progress Notes Filed: 06/18/2024 12:46 Note Text: Primary Care Pharmacy Visit CC (Reason for Consult): (E11.9, Z79.4) Type 2 diabetes mellitus without complication, with long-term current use of insulin (HCC) (primary encounter diagnosis) Goal(s): A1c <7% Last Collaborating Provider Visit: 06/05/[address] Rivero Erik Clarke is a 68 year old male presenting for follow up visit in person. Patient consents to pharmacy collaborative practice agreement. Last Pharmacy Visit: 04/29/24 HPI: Paid $500 for 3 months supply for CGM Just got Mounjaro. Paid $141 for 3 months Used to get the CGM through mail Called Medicare yesterday and they told him to call [facility] in [place] to have CGM order sent there Feels like the CGM helps him and would like to use it Eats sweets lately Current DM Medications: Metformin ER 500 mg #2 twice daily Jardiance 10 mg once daily Mounjaro 10 mg once weekly on Fridays Toujeo 38 units once daily Previously Trialed DM Meds: Glimepiride - changed to insulin Ariella Moser - can't remember why he stopped it Jardiance 25mg - balanitis Diet No major changes in diet. Just been eating sweets. GLYCEMIC CONTROL: Glucometer present at visit: Yes Hypoglycemia: No Past medical history reviewed. ALLERGIES Allergen Reactions Verapamil Other: See Comments Severe debilitating cluster headaches Current Outpatient Medications Medication Sig Dispense Refill tirzepatide (MOUNJARO) 10 mg/0.5 mL pen injector Inject 10 mg subcutaneously one time a week. 6 mL 4 Blood-Glucose Sensor ([employer] G7 SENSOR) yesenia APPLY NEW SENSOR EVERY 10 DAYS 9 Each 3 empagliflozin (JARDIANCE) 10 mg tablet Take 1 tablet by mouth daily with breakfast. 90 tablet 3 insulin glargine U-300 conc (TOUJEO SOLOSTAR U-300 INSULIN) 300 unit/mL (1.5 mL) Inject 38 Units subcutaneously once daily. 15 mL 3 Insulin [place], Disposable, (BD ULTRAFINE III MINI PEN) 31 gauge x 3/16 Use to inject insulin once daily 100 Each 3 metFORMIN ER (GLUCOPHAGE XR) 500 mg 24 hr tablet Take 2 tablets by mouth two times a day with meals. 360 tablet 3 rosuvastatin (CRESTOR) 10 mg tablet Take 1 tablet by mouth every afternoon. 90 tablet 3 carvedilol (COREG) 25 mg tablet Take 1 tablet by mouth two times a day. 180 tablet 3 chlorthalidone (HYGROTON) 25 mg tablet Take 0.5 tablets by mouth once daily. 45 tablet 2 lisinopril (ZESTRIL) 40 mg tablet Take 1 tablet by mouth once daily. 90 tablet 3 tamsulosin (FLOMAX) 0.4 mg Take 1 capsule by mouth once daily. 90 capsule 3 ticagrelor (BRILINTA) 90 mg tablet Take 1 tablet by mouth two times a day. 180 tablet 3 potassium chloride ER (KLOR-CON) 20 mEq tablet Take 1 tablet by mouth once daily. 5 tablet 0 Lancets Use as instructed to check blood sugar twice daily 200 Each 3 blood sugar diagnostic (BLOOD GLUCOSE TEST) test strip Use as instructed to check blood sugar twice daily 200 Each 3 Blood-Glucose Meter Use to check blood sugar 2 times per day 1 Each 0 Blood Pressure Monitor Use to monitor blood pressure 1 Each 0 Blood-Glucose Meter,Continuous (DEXCOM G7 GENERATOR ASSEMBLER) misc Use continuously to monitor glucose, IDDM, E 11.3293 aspirin, enteric coated (ECOTRIN LOW STRENGTH) 81 mg EC tablet Take 1 tablet by mouth once daily. No current facility-administered medications for this visit. Pill bottles are not present. Adherence: denies missed doses. Rx coverage: Payor: MEDICARE / Plan: MEDICARE A AND B / Product Type: Medicare / Medications affordable? Yes PHARMACOTHERAPY PREVENTATIVE MEDS: On MARY BETH/ARB: Yes On Statin: Yes On ASA: Yes EXAM: There were no vitals taken for this visit. Last 3 Encounter BP Readings: Date: BP: 06/05/2024 137/73 02/28/2024 134/80 01/01/2024 153/89 Wt: 88 kg (194 lb 0.1 oz) BMI: 29.51 kg/(m2) LABS: Lab Results Component Value Date HBA1C 7.3 01/23/2024 HBA1C 7.5 08/15/2023 HBA1C 7.7 11/14/2022 HBA1C 7.9 12/13/2021 HBA1C 9.1 04/05/2020 HBA1C 9.0 11/03/2019 HBA1C 8.4 03/14/2019 HBA1C 8.0 08/24/2018 Glucose 157 06/16/2024 BUN 17 06/16/2024 Creatinine 0.81 06/16/2024 Sodium 143 06/16/2024 Potassium 4.1 06/16/2024 Chloride 104 06/16/2024 CO2 28 06/16/2024 Protein, Total 7.4 06/16/2024 Albumin 4.5 06/16/2024 Calcium 10.2 06/16/2024 Alkaline Phosphatase 47 06/16/2024 Bilirubin, Total 1.4 06/16/2024 AST 19 06/16/2024 ALT 20 06/16/2024 Lab Results Component Value Date CHOL 92 12/04/2023 CHOL 146 04/05/2020 LDL 8 12/04/2023 LDL 53 04/05/2020 HDL 33 12/04/2023 HDL 31 04/05/2020 TG 256 12/04/2023 TG 310 04/05/2020 Albumin/Creat Ratio (mg/g) Date Value 12/04/2023 134 (H) eGFR-All Other Races Date Value 06/09/2021 >60 04/05/2020 >60 . Estimated Glomerular Filtration Rate (mL/min/1.73m?) Date Value 06/16/2024 95 ASSESSMENT/PLAN: 1. Type 2 diabetes mellitus without (more content not included)... [facility] 06-16-2024 Telephone encounter Note Phoned patient and went over notes below from PCP, patient wrote down information and read back to nurse with understanding. [facility] 06-16-2024 Miscellaneous Notes Phoned patient and went over notes below from PCP, patient wrote down information and read back to nurse with understanding. Recommend holding the Brilinta 3 days prior to procedure. Would be okay to restart 2 to 3 days after the procedure depending on recommendations from the box stapler Patient calling he has Colonoscopy scheduled for 06/24/2024, asking about his blood thinner Brilinta 90 mg he takes one tablet twice daily. He has gotten instruction about his diabetic medications but not sure what to do with the blood thinner? Please advise documented in this encounter [facility] 06-16-2024 Telephone encounter Note Recommend holding the Brilinta 3 days prior to procedure. Would be okay to restart 2 to 3 days after the procedure depending on recommendations from the box stapler [facility] 06-16-2024 Telephone encounter Note Patient calling he has Colonoscopy scheduled for 06/24/2024, asking about his blood thinner Brilinta 90 mg he takes one tablet twice daily. He has gotten instruction about his diabetic medications but not sure what to do with the blood thinner? Please advise [facility] 06-09-2024 Telephone encounter Note Patient called and LMOM for PharmD. States mail order pharmacy will not fill Mounjaro; needs to be filled at local pharmacy. Requested Rx be sent to [facility] in [place]. Patient's request for medication is as follows: Requested Prescriptions Signed Prescriptions Disp Refills tirzepatide (MOUNJARO) 10 mg/0.5 mL pen injector 6 mL 4 Sig: Inject 10 mg subcutaneously one time a week. Authorizing Provider: DENIS RIVERO Ordering User: OPHELIA NULL, PharmD, BCACP Primary Care Clinical Industrial Hygiene Manager [facility] Work Phone: 06-09-2024 Miscellaneous Notes Patient called and LMOM for PharmD. States mail order pharmacy will not fill Mounjaro; needs to be filled at local pharmacy. Requested Rx be sent to [facility] in [place]. Patient's request for medication is as follows: Requested Prescriptions Signed Prescriptions Disp Refills tirzepatide (MOUNJARO) 10 mg/0.5 mL pen injector 6 mL 4 Sig: Inject 10 mg subcutaneously one time a week. Authorizing Provider: DENIS RIVERO Ordering User: OPHELIA NULL PharmD, BCACP Primary Care Clinical Industrial Hygiene Manager documented in this encounter [facility] 06-05-2024 Instructions Denis Rivero MD - 06/05/2024 7:09 AM EST Shingles vaccine at the pharmacy RSV vaccine at the pharmacy Check blood work Schedule colonoscopy Continue current medications Follow up here in 6 months for medicare wellness exam COLONOSCOPY BOWEL PREPARATION INSTRUCTIONS MiraLAX Your doctor has scheduled you for a colonoscopy. To have a successful colonoscopy, you must have a clean colon, that is empty. A clean colon allows your doctor to see the entire colon & diagnose issues like polyps or cancer. For doctors, a clean colon is like driving on a kavita day; a dirty colon like driving in a storm. It is very important that you follow these instructions exactly, or your colonoscopy may not be as effective, could be canceled, and you may need to do the bowel prep and colonoscopy again. TRANSPORTATION REQUIREMENTS You are receiving IV sedation. For your safety, a responsible adult escort must accompany you to and from your procedure: Your adult escort MUST be present with you at check-in for your colonoscopy. Your adult escort MUST remain in the endoscopy area until you are discharged. Your adult escort MUST transport you home once you are discharged. You are NOT allowed to operate any form of transportation (i.e. drive a car, bicycle, etc) or leave the Endoscopy Center ALONE. It is not safe to do so. If you cannot meet these requirements, your procedure will be canceled. MEDICATION REQUIREMENTS For your safety, certain medications will need to be stopped or adjusted before you can have your procedure: BLOOD THINNERS: If you take blood thinners, such as Coumadin (warfarin), Plavix (clopidogrel), Ticlid (ticlopidine hydrochloride), Agrylin (anagrelide), Xarelto (Rivaroxaban), Pradaxa (Dabigatran), Eliquis (Apixaban), or Effient (Prasugrel), contact the physician who is prescribing these medications at least 2 weeks prior to your procedure to discuss any necessary adjustments. DIABETES: If you take medications for diabetes, your dosage may need to be adjusted. If you are being treated for diabetes with insulin, diabetic pills, or other injectable medications do not take your REGULAR dose after midnight on the day of your procedure. If you are taking any other types of insulin such as Lantus, Humalog, NPH (long-acting insulin), or 70/30 insulin, take half your normal dose the day before your procedure. DIABETES/WEIGHT MANAGEMENT: If you take medications for weight-loss, your dosage may need to be adjusted Contact the doctor who prescribes this medication for further instructions. If you take medications for weight-loss like semaglutide (Ozempic, Wegovy, Rybelsus), dulaglutide (Trulicity), liraglutide (Victoza, Saxenda), exenatide (Byetta, Bydureon), or lixisenatide (Adylyxin), stop your medication 1 week prior to your procedure. If you take medications like canagliflozin (Invokana), dapagliflozin (Farxiga, Forxiga), empagliflozin (Jardiance), stop your medication 3 days prior to your procedure. If you take ertugliflozin (Steglatro) stop your medication 4 days prior to your procedure. IRON: If you take iron pills, STOP them 1 week BEFORE your procedure, may resume after. OTHER MEDS: May take all other medications (including aspirin, antibiotics, water pills / diuretics like Lasix or Metolozone, blood pressure meds, etc.) at their usual scheduled time with water. DIET REQUIREMENTS The day before your colonoscopy, you may have a clear liquid diet (see below). The day of your colonoscopy, you may continue a clear liquid diet until 3 hours before your colonoscopy. Within 3 hours of your colonoscopy, take only any medications (as above) with a sip of water. Clear Liquid Diet Broth (chicken, beef or vegetable broth or bullion. Just the broth, no solids). Water Coffee or Tea (NO milk or creamer), but sugar and sugar substitutes are allowed. Clear liquids including clear, yellow, green, blue (NO red, NO orange, NO purple) Sodas / soft drinks; Gatorade or other sports drinks Fruit juice (strained; no-pulp); Kuldeep-Aid or flavored drinks Plain Jell-O or other gelatins Popsicles or hard candy Bowel prep can work differently from person to person. Some people's bowels move slowly and they may need different instructions. Please see your doctor in office or virtually for personalized bowel prep instructions if you have: BOWEL PREPARATION (MIRALAX/GATORADE) Split Dosing Bowel Prep: This means drinking your bowel prep in two doses. Split dosing helps clean your colon better and makes it less likely that your procedure will be canceled. You will need to purchase the following (no prescriptions are needed): 64 ounces Gatorade, Propel, Crystal Lite or other noncarbonated clear liquid sports drink (NOT red, orange, or purple). Diabetic patients buy sugar-free, e.g. Gatorade G2 4 Dulcolax laxative tablets containing 5mg bisacodyl each (do not buy the stool softener) 8.3 oz MiraLAX (238g) powder or generic polyethylene glycol 3350 (find in laxative aisle) The day before your colonoscopy mix 64 oz of the sports drink with 8.3 oz MiraLAX (238 g) in a pitcher. Stir or shake until MiraLAX completely dissolved. Chill if desired. On the evening before your colonoscopy: 5 PM take 4 Dulcolax laxative tablets with water by mouth. 6 PM drink the first half of the Gatorade/MiraLAX solution Drink one 8-ounce glass every 15 minutes. Six hours before your colonoscopy, drink the second half of the solution. Drink one 8-ounce glass every 15 minutes. You may continue a clear liquid diet until 3 hours before your colonoscopy. Bowel prep can work differently from person to person. Some people's bowels move slowly and they may need different instructions. Please see your doctor in office or virtually for personalized bowel prep instructions if you have: Medical condition that needs special accommodations Had a poor bowel prep results or failed bowel prep attempts in the past. Had difficulty with anesthesia during the procedure. FREQUENTLY ASKED QUESTIONS Q: What if I suffer from constipation? A: Recommend taking extra laxatives to resolve your constipation days prior to entering the bowel prep day. Q: What if have had prior poor preps results in past? A: Contact your physician as you will likely need additional bowel prep instructions. Q: What if I have motility issues like Parkinson's, MS (multiple sclerosis), wheelchair dependent, etc.? or on medications that slow colonic transit times (narcotics, gabapentin, anticholinergic medications etc.) A: Contact your physician as you will likely need extra time and additional laxatives to complete your bowel prep. Q: What if I cannot drink large volume of liquid? A: Start your prep 2-3 hours earlier to allow yourself more time to complete the entire prep. Q: What if I had bariatric surgery? Do I still have to complete the entire prep? A: Yes, gastric bypass surgery involves the stomach & small bowel. You may need to drink smaller amounts, slower (may need more time to complete your bowel prep). Gastric bypass does not alter the length of your colon so you will need to complete the entire bowel prep, it may just take longer time to complete it. Q: What if I am on dialysis? A: Please consult your bobbin trucker prior to scheduling to get instructions pertinent to you. In general, dialysis patients take the Golytely bowel prep and have the procedure same day of their dialysis (colonoscopy in AM, dialysis in PM). Q: How do I know if something is considered as clear liquid diet? A: If you can pour it in a glass and you can see through it, it is considered clear liquid Q: Can I eat nuts, seeds, beans, popcorn, dried fruits, vegetables & fruits that have skin peel? A: No, you will need to not eat these items starting 3 days prior to procedure. Q: Can I take Uber/Lyft/taxi/bus home? A: An adult MUST be present with you at check-in for your colonoscopy and remain in the endoscopy area until you are discharged. You can take Uber home only if this adult escort is with you at check in, remain in the endoscopy area until you are discharged, and takes the Uber with you to home. Q: Can I sleep it off here and drive myself home? A: No, you must have an adult with you at time of procedure check in, remain in the endoscopy center during your procedure, and drive you home. You cannot drive a vehicle after your procedure the rest of the day. Q: What if I can't finish my bowel prep? A: If you cannot complete your entire bowel prep, there is high likelihood that your colonoscopy will need to be rescheduled due to inadequate prep quality. documented in this encounter [facility] 06-05-2024 Note HNO ID: [id number] Author: DENIS RIVERO MD Service: ? Author Type: Physician Type: Progress Notes Filed: 06/05/2024 07:45 Note Text: Erik Clarke is a 68 year old male presenting for 6 Month Exam DM: Blood sugars are ranging in the 150's or so Patient continues with the Mounjaro Metformin, Jardiance and Toudesmondo CAD/HTN/HLD/HOCM: Patient does follow with cardiology regularly Headache: Follows with neurology He has not had a MORGAN in some time He feels good He is not taking anything for this now He has O2 at home but has not needed Would usually work HISTORIES: PAST MEDICAL HISTORY Diagnosis Date BPH (benign prostatic hypertrophy) with urinary retention 01/22/2012 Bradycardia Coronary artery disease involving [place] coronary artery of [place] heart without angina pectoris 05/30/2019 History: s/p CATRACHITA. On Brilinta ED (erectile dysfunction) HOCM (hypertrophic obstructive cardiomyopathy) (HCC) 05/15/2023 History: HOCM Hyperlipidemia LDL goal < 100 01/22/2012 Hypertension 01/22/2012 Nonrheumatic aortic (valve) stenosis 05/30/2019 History: Severe Obesity S/P AVR 09/18/2023 S/P myomectomy 09/18/2023 Status post insertion of drug eluting coronary artery stent 08/28/2022 Type 2 diabetes mellitus not at goal 01/22/2012 PAST SURGICAL HISTORY Procedure Laterality Date CARDIAC CATHETERIZATION HX 1999, 2004 no blockages, mildly leaky valve LEFT HEART CATH,PERCUTANEOUS 06/2022 stent placed PAST SURGICAL HISTORY OF 12/2015 L3-S1 laminectomy, decompression PAST SURGICAL HISTORY OF 01/16/2017 Lumbar reexploration L3-S1 with laminectomy and decompression FAMILY HISTORY Problem Relation Age of Onset Diabetes Mother Heart Father Diabetes Father Social History: Social History Tobacco Use Smoking status: Former Current packs/day: 0.00 Types: Cigarettes Quit date: 01/21/2010 Years since quittin.3 Smokeless tobacco: Current Types: Chew Tobacco comments: Patient states he has been chewing since he was younger - about a half can. Patient states it is the pouch type. Vaping Use Vaping status: Never Used Substance Use Topics Alcohol use: No Drug use: No Allergies: ALLERGIES Allergen Reactions Verapamil Other: See Comments Severe debilitating cluster headaches Medications: Blood-Glucose Sensor (DEXCOM G7 SENSOR) yesenia APPLY NEW SENSOR EVERY 10 DAYS empagliflozin (JARDIANCE) 10 mg tablet Take 1 tablet by mouth daily with breakfast. insulin glargine U-300 conc (TOUJEO SOLOSTAR U-300 INSULIN) 300 unit/mL (1.5 mL) Inject 38 Units subcutaneously once daily. Insulin [place], Disposable, (BD ULTRAFINE III MINI PEN) 31 gauge x 3/16 Use to inject insulin once daily metFORMIN ER (GLUCOPHAGE XR) 500 mg 24 hr tablet Take 2 tablets by mouth two times a day with meals. rosuvastatin (CRESTOR) 10 mg tablet Take 1 tablet by mouth every afternoon. tirzepatide (MOUNJARO) 10 mg/0.5 mL pen injector Inject 10 mg subcutaneously one time a week. carvedilol (COREG) 25 mg tablet Take 1 tablet by mouth two times a day. chlorthalidone (HYGROTON) 25 mg tablet Take 0.5 tablets by mouth once daily. lisinopril (ZESTRIL) 40 mg tablet Take 1 tablet by mouth once daily. tamsulosin (FLOMAX) 0.4 mg Take 1 capsule by mouth once daily. ticagrelor (BRILINTA) 90 mg tablet Take 1 tablet by mouth two times a day. potassium chloride ER (KLOR-CON) 20 mEq tablet Take 1 tablet by mouth once daily. Lancets Use as instructed to check blood sugar twice daily blood sugar diagnostic (BLOOD GLUCOSE TEST) test strip Use as instructed to check blood sugar twice daily Blood-Glucose Meter Use to check blood sugar 2 times per day Blood Pressure Monitor Use to monitor blood pressure Blood-Glucose Meter,Continuous (DEXCOM G7 GENERATOR ASSEMBLER) misc Use continuously to monitor glucose, IDDM, E 11.3927 aspirin, enteric coated (ECOTRIN LOW STRENGTH) 81 mg EC tablet Take 1 tablet by mouth once daily. REVIEW OF SYSTEMS See HPI PHYSICAL EXAMINATION: BP 137/73 Pulse 91 Temp 36.2 ?C (97.1 ?F) (Temporal) Ht 172.7 cm (5' 7.99) Wt 88 kg (194 lb 0.1 oz) SpO2 99% BMI 29.51 kg/m? General Appearance: Well appearing, alert, in no acute distress, well-hydrated, well nourished.. Neck: Supple, no adenopathy; thyroid symmetric, normal size, no bruits. Lungs: Lungs clear to auscultation. No wheezing, rhonchi, rales.. Heart: RRR without murmur, gallop, or rubs. No ectopy. Extremities: No deformities, edema, skin discoloration, clubbing or cyanosis. Good capillary refill. . Peripheral Pulses: Normal . ASSESSMENT/PLAN: 1. Type 2 diabetes mellitus with both eyes affected 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, with long-term current use of insulin (HCC) - ICD9: 250.50, 362.04, V58.67, ICD10: E11.3293, Z79.4 (primary diagnosis) Patient reports average blood sugars are in the 150s Has been taking all of his medications with no issues or karrie (more content not included)... [facility] 06-05-2024 History of Present illness Narrative Erik Clarke is a 68 year old male presenting for 6 Month Exam DM: Blood sugars are ranging in the 150's or so Patient continues with the Mounjaro Metformin, Jardiance and Toujeo CAD/HTN/HLD/HOCM: Patient does follow with cardiology regularly Headache: Follows with neurology He has not had a MORGAN in some time He feels good He is not taking anything for this now He has O2 at home but has not needed Would usually work HISTORIES: PAST MEDICAL HISTORY Diagnosis Date BPH (benign prostatic hypertrophy) with urinary retention 01/22/2012 Bradycardia Coronary artery disease involving [place] coronary artery of [place] heart without angina pectoris 05/30/2019 History: s/p CATRACHITA. On Brilinta ED (erectile dysfunction) HOCM (hypertrophic obstructive cardiomyopathy) ([facility]) 05/15/2023 History: HOCM Hyperlipidemia LDL goal < 100 01/22/2012 Hypertension 01/22/2012 Nonrheumatic aortic (valve) stenosis 05/30/2019 History: Severe Obesity S/P AVR 09/18/2023 S/P myomectomy 09/18/2023 Status post insertion of drug eluting coronary artery stent 08/28/2022 Type 2 diabetes mellitus not at goal 01/22/2012 PAST SURGICAL HISTORY Procedure Laterality Date CARDIAC CATHETERIZATION HX 1999, 2004 no blockages, mildly leaky valve LEFT HEART CATH,PERCUTANEOUS 06/2022 stent placed PAST SURGICAL HISTORY OF 12/2015 L3-S1 laminectomy, decompression PAST SURGICAL HISTORY OF 01/16/2017 Lumbar reexploration L3-S1 with laminectomy and decompression FAMILY HISTORY Problem Relation Age of Onset Diabetes Mother Heart Father Diabetes Father Social History: Social History Tobacco Use Smoking status: Former Current packs/day: 0.00 Types: Cigarettes Quit date: 01/21/2010 Years since quittin.3 Smokeless tobacco: Current Types: Chew Tobacco comments: Patient states he has been chewing since he was younger - about a half can. Patient states it is the pouch type. Vaping Use Vaping status: Never Used Substance Use Topics Alcohol use: No Drug use: No Allergies: ALLERGIES Allergen Reactions Verapamil Other: See Comments Severe debilitating cluster headaches Medications: Blood-Glucose Sensor ([employer] G7 SENSOR) yesenia APPLY NEW SENSOR EVERY 10 DAYS empagliflozin (JARDIANCE) 10 mg tablet Take 1 tablet by mouth daily with breakfast. insulin glargine U-300 conc (TOUJEO SOLOSTAR U-300 INSULIN) 300 unit/mL (1.5 mL) Inject 38 Units subcutaneously once daily. Insulin [place], Disposable, (BD ULTRAFINE III MINI PEN) 31 gauge x 3/16 Use to inject insulin once daily metFORMIN ER (GLUCOPHAGE XR) 500 mg 24 hr tablet Take 2 tablets by mouth two times a day with meals. rosuvastatin (CRESTOR) 10 mg tablet Take 1 tablet by mouth every afternoon. tirzepatide (MOUNJARO) 10 mg/0.5 mL pen injector Inject 10 mg subcutaneously one time a week. carvedilol (COREG) 25 mg tablet Take 1 tablet by mouth two times a day. chlorthalidone (HYGROTON) 25 mg tablet Take 0.5 tablets by mouth once daily. lisinopril (ZESTRIL) 40 mg tablet Take 1 tablet by mouth once daily. tamsulosin (FLOMAX) 0.4 mg Take 1 capsule by mouth once daily. ticagrelor (BRILINTA) 90 mg tablet Take 1 tablet by mouth two times a day. potassium chloride ER (KLOR-CON) 20 mEq tablet Take 1 tablet by mouth once daily. Lancets Use as instructed to check blood sugar twice daily blood sugar diagnostic (BLOOD GLUCOSE TEST) test strip Use as instructed to check blood sugar twice daily Blood-Glucose Meter Use to check blood sugar 2 times per day Blood Pressure Monitor Use to monitor blood pressure Blood-Glucose Meter,Continuous (DEXCOM G7 GENERATOR ASSEMBLER) misc Use continuously to monitor glucose, IDDM, E 11.3293 aspirin, enteric coated (ECOTRIN LOW STRENGTH) 81 mg EC tablet Take 1 tablet by mouth once daily. REVIEW OF SYSTEMS See HPI PHYSICAL EXAMINATION: BP 137/73 Pulse 91 Temp 36.2 C (97.1 F) (Temporal) Ht 172.7 cm (5' 7.99) Wt 88 kg (194 lb 0.1 oz) SpO2 99% BMI 29.51 kg/m General Appearance: Well appearing, alert, in no acute distress, well-hydrated, well nourished.. Neck: Supple, no adenopathy; thyroid symmetric, normal size, no bruits. Lungs: Lungs clear to auscultation. No wheezing, rhonchi, rales.. Heart: RRR without murmur, gallop, or rubs. No ectopy. Extremities: No deformities, edema, skin discoloration, clubbing or cyanosis. Good capillary refill. . Peripheral Pulses: Normal . ASSESSMENT/PLAN: 1. Type 2 diabetes mellitus with both eyes affected 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, with long-term current use of insulin ([facility]) - ICD9: 250.50, 362.04, V58.67, ICD10: E11.3293, Z79.4 (primary diagnosis) Patient reports average blood sugars are in the 150s Has been taking all of his medications with no issues or side effects Was told by his insurance that they would no longer be covering the CGM Continue following with Pharm.D. Check blood work including A1c and CMP Continue to work on diet and exercise - COMPREHENSIVE METABOLIC PANEL - HEMOGLOBIN A1C 2. Screening for colon cancer - ICD9: V76.51, ICD10: Z12.11 3. Positive colorectal cancer screening using Cologuard test - ICD9: 787.7, ICD10: R19.5 Referred for colonoscopy - COLONOSCOPY SCREENING 4. Essential hypertension - ICD9: 401.9, ICD10: I10 5. Mixed hyperlipidemia - ICD9: 272.2, ICD10: E78.2 6. HOCM (hypertrophic obstructive cardiomyopathy) (HCC) - ICD9: 425.11, ICD10: I42.1 7. Coronary artery disease involving [place] coronary artery of [place] heart without angina pectoris - ICD9: 414.01, ICD10: I25.10 8. Status post insertion of drug eluting coronary artery stent - ICD9: V45.82, ICD10: Z95.5 9. S/P myomectomy - ICD9: V45.89, ICD10: Z98.890 10. S/P AVR - ICD9: V43.3, ICD10: Z95.2 Symptomatically, patient reports exertional doing quite well Reports no chest pain or shortness of breath Has been tolerating his medications Feels that his blood pressures been under good control Does follow regularly with cardiology Check blood work 11. Screening for prostate cancer - ICD9: V76.44, ICD10: Z12.5 - PSA/PROSTATE SPECIFIC ANTIGEN SCREENING 12. Benign prostatic hyperplasia with lower urinary tract symptoms, symptom details unspecified - ICD9: 600.01, ICD10: N40.1 Continue Flomax Check PSA MD Denis Kay MD documented in this encounter [facility] 05-28-2024 Telephone encounter Note Patient called PharmD requesting refills now must be sent to new pharmacy, [facility] mail order pharmacy due to insurance update Patient's request for medication is as follows: Requested Prescriptions Pending Prescriptions Disp Refills carvedilol (COREG) 25 mg tablet 180 tablet 3 Sig: Take 1 tablet by mouth two times a day. chlorthalidone (HYGROTON) 25 mg tablet 45 tablet 2 Sig: Take 0.5 tablets by mouth once daily. lisinopril (ZESTRIL) 40 mg tablet 90 tablet 3 Sig: Take 1 tablet by mouth once daily. tamsulosin (FLOMAX) 0.4 mg 90 capsule 1 Sig: Take 1 capsule by mouth once daily. ticagrelor (BRILINTA) 90 mg tablet 180 tablet 3 Sig: Take 1 tablet by mouth two times a day. Prescription(s) as above. Please process accordingly. Ophelia Null PharmD, VESTA Primary Care Clinical Industrial Hygiene Manager [facility] 05-28-2024 Miscellaneous Notes Patient called PharmD requesting refills now must be sent to new pharmacy, [facility] mail order pharmacy due to insurance update Patient's request for medication is as follows: Requested Prescriptions Pending Prescriptions Disp Refills carvedilol (COREG) 25 mg tablet 180 tablet 3 Sig: Take 1 tablet by mouth two times a day. chlorthalidone (HYGROTON) 25 mg tablet 45 tablet 2 Sig: Take 0.5 tablets by mouth once daily. lisinopril (ZESTRIL) 40 mg tablet 90 tablet 3 Sig: Take 1 tablet by mouth once daily. tamsulosin (FLOMAX) 0.4 mg 90 capsule 1 Sig: Take 1 capsule by mouth once daily. ticagrelor (BRILINTA) 90 mg tablet 180 tablet 3 Sig: Take 1 tablet by mouth two times a day. Prescription(s) as above. Please process accordingly. Ophelia Null PharmD, [place] Primary Care Clinical Industrial Hygiene Manager documented in this encounter [facility] 05-28-2024 Telephone encounter Note Patient called PharmD requesting refills for all meds be sent to his new pharmacy, [facility] mail[facility]. Patient unable to use [facility] moving forward Patient's request for medication is as follows: Requested Prescriptions Signed Prescriptions Disp Refills Blood-Glucose Sensor (DEXCOM G7 SENSOR) yesenia 9 Each 3 Sig: APPLY NEW SENSOR EVERY 10 DAYS Authorizing Provider: DENIS RIVERO Ordering User: OPHELIA NULL empagliflozin (JARDIANCE) 10 mg tablet 90 tablet 3 Sig: Take 1 tablet by mouth daily with breakfast. Authorizing Provider: DENIS RIVERO Ordering User: OPHELIA NULL insulin glargine U-300 conc (TOUJEO SOLOSTAR U-300 INSULIN) 300 unit/mL (1.5 mL) 15 mL 3 Sig: Inject 38 Units subcutaneously once daily. Authorizing Provider: DENIS RIVERO Ordering User: OPHELIA NULL Insulin [place], Disposable, (BD ULTRAFINE III MINI PEN) 31 gauge x 3/16 100 Each 3 Sig: Use to inject insulin once daily Authorizing Provider: DENIS RIVERO Ordering User: OPHELIA NULL metFORMIN ER (GLUCOPHAGE XR) 500 mg 24 hr tablet 360 tablet 3 Sig: Take 2 tablets by mouth two times a day with meals. Authorizing Provider: DENIS RIVERO Ordering User: OPHELIA NULL rosuvastatin (CRESTOR) 10 mg tablet 90 tablet 3 Sig: Take 1 tablet by mouth every afternoon. Authorizing Provider: DENIS RIVERO Ordering User: OPHELIA NULL tirzepatide (MOUNJARO) 10 mg/0.5 mL pen injector 6 mL 1 Sig: Inject 10 mg subcutaneously one time a week. Authorizing Provider: DENIS RIVERO Ordering User: OPHELIA NULL PharmD, BCACP Primary Care Clinical Industrial Hygiene Manager [facility] 05-28-2024 Miscellaneous Notes Patient called PharmWero requesting refills for all meds be sent to his new pharmacy, [facility] mail[facility]. Patient unable to use [facility] moving forward Patient's request for medication is as follows: Requested Prescriptions Signed Prescriptions Disp Refills Blood-Glucose Sensor (DEXCOM G7 SENSOR) yesenia 9 Each 3 Sig: APPLY NEW SENSOR EVERY 10 DAYS Authorizing Provider: DENIS RIVERO Ordering User: OPHELIA NULL empagliflozin (JARDIANCE) 10 mg tablet 90 tablet 3 Sig: Take 1 tablet by mouth daily with breakfast. Authorizing Provider: DENIS RIVERO Ordering User: OPHELIA NULL insulin glargine U-300 conc (TOUJEO SOLOSTAR U-300 INSULIN) 300 unit/mL (1.5 mL) 15 mL 3 Sig: Inject 38 Units subcutaneously once daily. Authorizing Provider: DENIS RIVERO Ordering User: OPHELIA NULL Insulin [place], Disposable, (BD ULTRAFINE III MINI PEN) 31 gauge x 3/16 100 Each 3 Sig: Use to inject insulin once daily Authorizing Provider: DENIS RIVERO Ordering User: OPHELIA NULL metFORMIN ER (GLUCOPHAGE XR) 500 mg 24 hr tablet 360 tablet 3 Sig: Take 2 tablets by mouth two times a day with meals. Authorizing Provider: DENIS RIVERO Ordering User: OPHELIA NULL rosuvastatin (CRESTOR) 10 mg tablet 90 tablet 3 Sig: Take 1 tablet by mouth every afternoon. Authorizing Provider: DENIS RIVERO Ordering User: OPHELIA NULL tirzepatide (MOUNJARO) 10 mg/0.5 mL pen injector 6 mL 1 Sig: Inject 10 mg subcutaneously one time a week. Authorizing Provider: DENIS RIVERO Ordering User: OPHELIA NULL, PharmD, BCACP Primary Care Clinical Industrial Hygiene Manager documented in this encounter [facility] 05-26-2024 Telephone encounter Note Prescription Refill Information The patient has been identified by name and date of : Yes Caregiver verified no other encounters exist for this prescription request: Yes Caregiver confirmed with patient/requestor that no other refills are due, in the near future, with this provider at this time: Yes The last office visit in the department: 12/06/2023 Does the patient have a future office visit with this provider/department: Yes Requested Prescriptions Pending Prescriptions Disp Refills Blood-Glucose Sensor (DEXCOM G7 SENSOR) yesenia 9 Each 3 Sig: APPLY NEW SENSOR EVERY 10 DAYS ticagrelor (BRILINTA) 90 mg tablet 180 tablet 3 Sig: Take 1 tablet by mouth two times a day. rosuvastatin (CRESTOR) 10 mg tablet 90 tablet 3 Sig: Take 1 tablet by mouth every afternoon. tamsulosin (FLOMAX) 0.4 mg 90 capsule 1 Sig: Take 1 capsule by mouth once daily. Moira Okeefe MA May 26, 2024 1:58 PM [facility] 05-26-2024 Miscellaneous Notes Prescription Refill Information The patient has been identified by name and date of : Yes Caregiver verified no other encounters exist for this prescription request: Yes Caregiver confirmed with patient/requestor that no other refills are due, in the near future, with this provider at this time: Yes The last office visit in the department: 12/06/2023 Does the patient have a future office visit with this provider/department: Yes Requested Prescriptions Pending Prescriptions Disp Refills Blood-Glucose Sensor (DEXCOM G7 SENSOR) yesenia 9 Each 3 Sig: APPLY NEW SENSOR EVERY 10 DAYS ticagrelor (BRILINTA) 90 mg tablet 180 tablet 3 Sig: Take 1 tablet by mouth two times a day. rosuvastatin (CRESTOR) 10 mg tablet 90 tablet 3 Sig: Take 1 tablet by mouth every afternoon. tamsulosin (FLOMAX) 0.4 mg 90 capsule 1 Sig: Take 1 capsule by mouth once daily. Moira Okeefe MA May 26, 2024 1:58 PM documented in this encounter [facility] 05-16-2024 Telephone encounter Note Patient called and LMOM for PharmD requesting refills for lisinopril and carvedilol to be sent to [facility] Patient's request for medication is as follows: Requested Prescriptions Signed Prescriptions Disp Refills carvedilol (COREG) 25 mg tablet 180 tablet 3 Sig: Take 1 tablet by mouth two times a day. Authorizing Provider: DENIS RIVERO Ordering User: OPHELIA NULL lisinopril (ZESTRIL) 40 mg tablet 90 tablet 3 Sig: Take 1 tablet by mouth once daily. Authorizing Provider: DENIS RIVERO Ordering User: OPHELIA NULL PharmD, [place] Primary Care Clinical Industrial Hygiene Manager [facility] 05-16-2024 Miscellaneous Notes Patient called and LMOM for PharmD requesting refills for lisinopril and carvedilol to be sent to [facility] Patient's request for medication is as follows: Requested Prescriptions Signed Prescriptions Disp Refills carvedilol (COREG) 25 mg tablet 180 tablet 3 Sig: Take 1 tablet by mouth two times a day. Authorizing Provider: DENIS RIVERO Ordering User: OPHELIA NULL lisinopril (ZESTRIL) 40 mg tablet 90 tablet 3 Sig: Take 1 tablet by mouth once daily. Authorizing Provider: DENIS RIVERO Ordering User: OPHELIA NULL PharmD, [place] Primary Care Clinical Industrial Hygiene Manager documented in this encounter [facility] 04-29-2024 History of Present illness Narrative Images from the original note were not included. Primary Care Pharmacy Visit CC (Reason for Consult): (E11.9, Z79.4) Type 2 diabetes mellitus without complication, with long-term current use of insulin (HCC) (primary encounter diagnosis) Goal(s): A1c <7% Last Collaborating Provider Visit: 12/06/23 Erik Clarke is a 68 year old male presenting for follow up visit in person. Patient consents to pharmacy collaborative practice agreement. Last Pharmacy Visit: 03/04/24 - Mounjaro increased to 10 mg weekly HPI: Reports doing well Confirmed getting Mounjaro 10 mg, tolerating well; has had 2 doses of 10 mg so far, received a 3 month supply States he thinks the Mounjaro has been working better now on the higher dose Also has been walking every day Requesting chlorthalidone refill to [facility] Current DM Medications: Metformin ER 500 mg #2 twice daily Jardiance 10 mg once daily Mounjaro 10 mg once weekly on Fridays Toujeo 38 units once daily Previously Trialed DM Meds: Glimepiride - changed to insulin Ariella Moser - can't remember why he stopped it Jardiance 25mg - balanitis Diet Denies any recent changes GLYCEMIC CONTROL: Glucometer present at visit: Yes; also connected to [employer] via smartphone during visit Hypoglycemia: Yes; however, reports one episode but did not have any symptoms CGM Data Past medical history reviewed. ALLERGIES Allergen Reactions Verapamil Other: See Comments Severe debilitating cluster headaches Current Outpatient Medications Medication Sig Dispense Refill chlorthalidone (HYGROTON) 25 mg tablet Take 0.5 tablets by mouth once daily. 45 tablet 2 carvedilol (COREG) 25 mg tablet Take 1 tablet by mouth two times a day. 90 tablet 3 Insulin [place], Disposable, (BD ULTRAFINE III MINI PEN) 31 gauge x 3/16 USE AND DISCARD 1 PEN NEEDLE ONCE DAILY WITH INSULIN PEN 90 Each 3 empagliflozin (JARDIANCE) 10 mg tablet Take 1 tablet by mouth daily with breakfast. 90 tablet 3 tirzepatide (MOUNJARO) 10 mg/0.5 mL pen injector Inject 10 mg subcutaneously one time a week. 6 mL 1 tamsulosin (FLOMAX) 0.4 mg TAKE 1 CAPSULE ONCE DAILY 90 capsule 1 insulin glargine U-300 conc (TOUJEO SOLOSTAR U-300 INSULIN) 300 unit/mL (1.5 mL) Inject 38 Units subcutaneously once daily. galcanezumab-gnlm (EMGALITY SYRINGE) 300 mg/3 mL (100 mg/mL x 3) syringe Do not shake. Inject three 100 ml doses for every month as long as headaches persist. 3 mL 5 rosuvastatin (CRESTOR) 10 mg tablet take 1 tablet once daily 90 tablet 3 iv contrast (will be provided with radiology test) MRA Carotid WO/W Inject, intravenously, once for 1 dose. No IV access, insert saline lock prior to the beginning of sedation, infusion, injection of imaging exam. Discontinue saline lock post exam. If Pt. has a central line or IVAD, may access for administration according to line specific nursing protocol. Once exam is complete flush line and de-access according to line specific nursing protocol in the MR contrast administration guidelines link. 1 Each 0 lisinopril (ZESTRIL) 40 mg tablet Take 1 tablet by mouth once daily. 90 tablet 3 potassium chloride ER (KLOR-CON) 20 mEq tablet Take 1 tablet by mouth once daily. 5 tablet 0 Lancets Use as instructed to check blood sugar twice daily 200 Each 3 blood sugar diagnostic (BLOOD GLUCOSE TEST) test strip Use as instructed to check blood sugar twice daily 200 Each 3 Blood-Glucose Meter Use to check blood sugar 2 times per day 1 Each 0 Blood-Glucose Sensor (DEXCOM G7 SENSOR) yesenia APPLY NEW SENSOR EVERY 10 DAYS 9 Each 3 BRILINTA 90 mg tablet take 1 tablet twice a day 180 tablet 3 metFORMIN ER (GLUCOPHAGE XR) 500 mg 24 hr tablet TAKE 2 TABLETS 2 TIMES DAILY WITH MEALS 360 tablet 3 Blood Pressure Monitor Use to monitor blood pressure 1 Each 0 Blood-Glucose Meter,Continuous (DEXCOM G7 GENERATOR ASSEMBLER) [facility] [place] continuously to monitor glucose, IDDM, E 11.3293 aspirin, enteric coated (ECOTRIN LOW STRENGTH) 81 mg EC tablet Take 1 tablet by mouth once daily. No current facility-administered medications for this visit. Pill bottles are not present. Adherence: denies missed doses. Rx coverage: Payor: MEDICARE / Plan: MEDICARE A AND B / Product Type: Medicare / Medications affordable? Yes PHARMACOTHERAPY PREVENTATIVE MEDS: On MARY BETH/ARB: Yes On Statin: Yes On ASA: Yes EXAM: There were no vitals taken for this visit. Last 3 Encounter BP Readings: Date: BP: 02/28/2024 134/80 01/01/2024 153/89 12/27/2023 127/85 Wt: 89 kg (196 lb 3.4 oz) BMI: 29.84 kg/(m^2) LABS: Lab Results Component Value Date HBA1C 7.3 01/23/2024 HBA1C 7.5 08/15/2023 HBA1C 7.7 11/14/2022 HBA1C 7.9 12/13/2021 HBA1C 9.1 04/05/2020 HBA1C 9.0 11/03/2019 HBA1C 8.4 03/14/2019 HBA1C 8.0 08/24/2018 Glucose 159 01/23/2024 BUN 20 01/23/2024 Creatinine 0.74 01/23/2024 Sodium 139 01/23/2024 Potassium 4.0 01/23/2024 Chloride 100 01/23/2024 CO2 25 01/23/2024 Protein, Total 7.6 11/18/2023 Albumin 4.5 11/18/2023 Calcium 9.9 01/23/2024 Alkaline Phosphatase 52 11/18/2023 Bilirubin, Total 1.6 11/18/2023 AST 19 11/18/2023 ALT 18 11/18/2023 Lab Results Component Value Date CHOL 92 12/04/2023 CHOL 146 04/05/2020 LDL 8 12/04/2023 LDL 53 04/05/2020 HDL 33 12/04/2023 HDL 31 04/05/2020 TG 256 12/04/2023 TG 310 04/05/2020 Albumin/Creat Ratio (mg/g) Date Value 12/04/2023 134 (H) eGFR-All Other Races Date Value 06/09/2021 >60 04/05/2020 >60 . Estimated Glomerular Filtration Rate (mL/min/1.73m ) Date Value 01/23/2024 98 ASSESSMENT/PLAN: 1. Type 2 diabetes mellitus without complication, with long-term current use of insulin ([facility]) - ICD9: 250.00, V58.67, ICD10: E11.9, Z79.4 - Improving control - Continue current medications - Statin prescribed - rosuvastatin - Blood glucose monitoring on a continuous glucose monitoring schedule - Counseled on healthy diet and regular exercise - Discussed diabetic education issues of hypoglycemic/hyperglycemic symptoms - Follow up in 2 months, sooner should any other issues arise. - Due for A1c Follow Up: Next PCP visit: 06/05/24 Next PharmD visit: 06/17/24 Ophelia Null, Margarita, BCACP Primary Care Clinical Industrial Hygiene Manager I spent a total of 25 minutes on the date of the service which included preparing to see the patient, [id number] patient care, completing clinical documentation, counseling and educating the patient/family/caregiver, and ordering medications, tests, or procedures. documented in this encounter [facility] 04-29-2024 Note HNO ID: [id number] Author: OPHELIA NULL formerly [facility]: ? Author Type: Pharmacist Type: Progress Notes Filed: 04/29/2024 09:27 Note Text: Primary Care Pharmacy Visit CC (Reason for Consult): (E11.9, Z79.4) Type 2 diabetes mellitus without complication, with long-term current use of insulin (HCC) (primary encounter diagnosis) Goal(s): A1c <7% Last Collaborating Provider Visit: 12/06/23 Erik Clarke is a 68 year old male presenting for follow up visit in person. Patient consents to pharmacy collaborative practice agreement. Last Pharmacy Visit: 03/04/24 - Mounjaro increased to 10 mg weekly HPI: Reports doing well Confirmed getting Mounjaro 10 mg, tolerating well; has had 2 doses of 10 mg so far, received a 3 month supply States he thinks the Mounjaro has been working better now on the higher dose Also has been walking every day Requesting chlorthalidone refill to [facility] Current DM Medications: Metformin ER 500 mg #2 twice daily Jardiance 10 mg once daily Mounjaro 10 mg once weekly on Fridays Toujeo 38 units once daily Previously Trialed DM Meds: Glimepiride - changed to insulin Ariella Moser - can't remember why he stopped it Jardiance 25mg - balanitis Diet Denies any recent changes GLYCEMIC CONTROL: Glucometer present at visit: Yes; also connected to [email or web address] via smartphone during visit Hypoglycemia: Yes; however, reports one episode but did not have any symptoms CGM Data Past medical history reviewed. ALLERGIES Allergen Reactions Verapamil Other: See Comments Severe debilitating cluster headaches Current Outpatient Medications Medication Sig Dispense Refill chlorthalidone (HYGROTON) 25 mg tablet Take 0.5 tablets by mouth once daily. 45 tablet 2 carvedilol (COREG) 25 mg tablet Take 1 tablet by mouth two times a day. 90 tablet 3 Insulin [place], Disposable, (BD ULTRAFINE III MINI PEN) 31 gauge x 3/16 USE AND DISCARD 1 PEN NEEDLE ONCE DAILY WITH INSULIN PEN 90 Each 3 empagliflozin (JARDIANCE) 10 mg tablet Take 1 tablet by mouth daily with breakfast. 90 tablet 3 tirzepatide (MOUNJARO) 10 mg/0.5 mL pen injector Inject 10 mg subcutaneously one time a week. 6 mL 1 tamsulosin (FLOMAX) 0.4 mg TAKE 1 CAPSULE ONCE DAILY 90 capsule 1 insulin glargine U-300 conc (TOUJEO SOLOSTAR U-300 INSULIN) 300 unit/mL (1.5 mL) Inject 38 Units subcutaneously once daily. galcanezumab-gnlm (EMGALITY SYRINGE) 300 mg/3 mL (100 mg/mL x 3) syringe Do not shake. Inject three 100 ml doses for every month as long as headaches persist. 3 mL 5 rosuvastatin (CRESTOR) 10 mg tablet take 1 tablet once daily 90 tablet 3 iv contrast (will be provided with radiology test) MRA Carotid WO/W Inject, intravenously, once for 1 dose. No IV access, insert saline lock prior to the beginning of sedation, infusion, injection of imaging exam. Discontinue saline lock post exam. If Pt. has a central line or IVAD, may access for administration according to line specific nursing protocol. Once exam is complete flush line and de-access according to line specific nursing protocol in the MR contrast administration guidelines link. 1 Each 0 lisinopril (ZESTRIL) 40 mg tablet Take 1 tablet by mouth once daily. 90 tablet 3 potassium chloride ER (KLOR-CON) 20 mEq tablet Take 1 tablet by mouth once daily. 5 tablet 0 Lancets Use as instructed to check blood sugar twice daily 200 Each 3 blood sugar diagnostic (BLOOD GLUCOSE TEST) test strip Use as instructed to check blood sugar twice daily 200 Each 3 Blood-Glucose Meter Use to check blood sugar 2 times per day 1 Each 0 Blood-Glucose Sensor (DEXCOM G7 SENSOR) yesenia APPLY NEW SENSOR EVERY 10 DAYS 9 Each 3 BRILINTA 90 mg tablet take 1 tablet twice a day 180 tablet 3 metFORMIN ER (GLUCOPHAGE XR) 500 mg 24 hr tablet TAKE 2 TABLETS 2 TIMES DAILY WITH MEALS 360 tablet 3 Blood Pressure Monitor Use to monitor blood pressure 1 Each 0 Blood-Glucose Meter,Continuous (DEXCOM G7 GENERATOR ASSEMBLER) [facility] [place] to monitor glucose, IDDM, E 11.4753 aspirin, enteric coated (ECOTRIN LOW STRENGTH) 81 mg EC tablet Take 1 tablet by mouth once daily. No current facility-administered medications for this visit. Pill bottles are not present. Adherence: denies missed doses. Rx coverage: Payor: MEDICARE / Plan: MEDICARE A AND B / Product Type: Medicare / Medications affordable? Yes PHARMACOTHERAPY PREVENTATIVE MEDS: On MARY BETH/ARB: Yes On Statin: Yes On ASA: Yes EXAM: There were no vitals taken for this visit. Last 3 Encounter BP Readings: Date: BP: 02/28/2024 134/80 01/01/2024 153/89 12/27/2023 127/85 Wt: 89 kg (196 lb 3.4 oz) BMI: 29.84 kg/(m2) LABS: Lab Results Component Value Date HBA1C 7.3 01/23/2024 HBA1C 7.5 08/15/2023 HBA1C 7.7 11/14/2022 HBA1C 7.9 12/13/2021 HBA1C 9.1 04/05/2020 HBA1C 9.0 11/03/2019 HBA1C 8.4 03/14/2019 HBA1C 8.0 08/24/2018 Glucose 159 01/23/2024 BUN 20 01/23/2024 Creatinine (more content not included)... [facility] 04-08-2024 Telephone encounter Note Prescription Refill Information The patient has been identified by name and date of : Yes Caregiver verified no other encounters exist for this prescription request: Yes Caregiver confirmed with patient/requestor that no other refills are due, in the near future, with this provider at this time: Yes The last office visit in the department: 12/06/2023 Does the patient have a future office visit with this provider/department: Yes Requested Prescriptions Pending Prescriptions Disp Refills carvedilol (COREG) 25 mg tablet 90 tablet 3 Sig: Take 1 tablet by mouth two times a day. chlorthalidone (HYGROTON) 25 mg tablet 45 tablet 1 Sig: Take 0.5 tablets by mouth once daily. Moira Okeefe MA April 08, 2024 3:19 PM [facility] 04-08-2024 Miscellaneous Notes Prescription Refill Information The patient has been identified by name and date of : Yes Caregiver verified no other encounters exist for this prescription request: Yes Caregiver confirmed with patient/requestor that no other refills are due, in the near future, with this provider at this time: Yes The last office visit in the department: 12/06/2023 Does the patient have a future office visit with this provider/department: Yes Requested Prescriptions Pending Prescriptions Disp Refills carvedilol (COREG) 25 mg tablet 90 tablet 3 Sig: Take 1 tablet by mouth two times a day. chlorthalidone (HYGROTON) 25 mg tablet 45 tablet 1 Sig: Take 0.5 tablets by mouth once daily. Moira Okeefe MA April 08, 2024 3:19 PM documented in this encounter [facility] 04-07-2024 Telephone encounter Note Pharmacy verified in [employer]. Patient has been identified by name and date of : Yes Patient aware RX will be sent to pharmacy. No need to notify patient. Patient phones for refill(s): Requested Prescriptions Pending Prescriptions Disp Refills BD ULTRAFINE III MINI PEN 31 gauge x 3/16 [Pharmacy Med Name: BD MINI NDL PEN [id number]] 3 Sig: USE AND DISCARD 1 PEN NEEDLE ONCE DAILY WITH INSULIN PEN Date of last office visit : 12/06/2023 Date of next office visit : 06/05/2024 Last 2 Encounter Wt Readings: Date: Wt: 02/28/2024 89 kg (196 lb 3.4 oz) 12/27/2023 87.5 kg (192 lb 14.4 oz) Diabetes: Hemoglobin A1C (%) Date Value 01/23/2024 7.3 04/05/2020 9.1 Hemoglobin A1C (POCT) (%) Date Value 12/13/2021 7.9 Please advise. Diann Green MA [facility] 04-07-2024 Miscellaneous Notes Pharmacy verified in [employer]. Patient has been identified by name and date of : Yes Patient aware RX will be sent to pharmacy. No need to notify patient. Patient phones for refill(s): Requested Prescriptions Pending Prescriptions Disp Refills BD ULTRAFINE III MINI PEN 31 gauge x 3/16 [Pharmacy Med Name: BD MINI NDL PEN [id number]] 3 Sig: USE AND DISCARD 1 PEN NEEDLE ONCE DAILY WITH INSULIN PEN Date of last office visit : 12/06/2023 Date of next office visit : 06/05/2024 Last 2 Encounter Wt Readings: Date: Wt: 02/28/2024 89 kg (196 lb 3.4 oz) 12/27/2023 87.5 kg (192 lb 14.4 oz) Diabetes: Hemoglobin A1C (%) Date Value 01/23/2024 7.3 04/05/2020 9.1 Hemoglobin A1C (POCT) (%) Date Value 12/13/2021 7.9 Please advise. Diann Green MA documented in this encounter [facility] 04-04-2024 Telephone encounter Note Patient called and LMOM for PharmD regarding Mounjaro and Jardiance. Called and spoke with patient. States he never got higher dose of Mounjaro as prescribed at last visit. Also states received a letter stating Jardiance will not be able to be filled at [facility] moving forward. Called and spoke with Malka at [facility]. States Mounjaro must be filled at local pharmacy; however, Jardiance is able to be filled at mailorder pharmacy. Ran test claims to ensure Rx were covered, Mounjaro at local pharmacy and Jardiance through mailorder. Sent Rx to pharmacies, Mounjaro ([facility] in [place]) and Jardiance ([facility]), per patient request. Ophelia Null, PharmWero, BCACP Primary Care Clinical Industrial Hygiene Manager [facility] 04-04-2024 Miscellaneous Notes Patient called and LMOM for PharmD regarding Mounjaro and Jardiance. Called and spoke with patient. States he never got higher dose of Mounjaro as prescribed at last visit. Also states received a letter stating Jardiance will not be able to be filled at [facility] moving forward. Called and spoke with Malka at [facility]. States Mounjaro must be filled at local pharmacy; however, Jardiance is able to be filled at mailorder pharmacy. Ran test claims to ensure Rx were covered, Mounjaro at local pharmacy and Jardiance through mailorder. Sent Rx to pharmacies, Mounjaro ([facility] in [place]) and Jardiance ([facility]), per patient request. Ophelia Null PharmD, [place] Primary Care Clinical Industrial Hygiene Manager documented in this encounter [facility] 03-04-2024 Telephone encounter Note Patient seen by PharmD today. Would benefit from titration of Mounjaro dose for additional glycemic lowering. [facility] Mounjaro not yet included in pharmacist CPA; pending for provider signature. Patient's request for medication is as follows: Requested Prescriptions Pending Prescriptions Disp Refills tirzepatide (MOUNJARO) 10 mg/0.5 mL pen injector 6 mL 2 Sig: Inject 10 mg subcutaneously one time a week. Prescription(s) as above. Please process accordingly. Ophelia Null PharmD, BCACP Primary Care Clinical Industrial Hygiene Manager [facility] Work Phone: 03-04-2024 Miscellaneous Notes Patient seen by PharmWero today. Would benefit from titration of Mounjaro dose for additional glycemic lowering. Patient requesting sent to [facility] mailorder pharmacy. Mounjaro not yet included in pharmacist CPA; pending for provider signature. Patient's request for medication is as follows: Requested Prescriptions Pending Prescriptions Disp Refills tirzepatide (MOUNJARO) 10 mg/0.5 mL pen injector 6 mL 2 Sig: Inject 10 mg subcutaneously one time a week. Prescription(s) as above. Please process accordingly. Ophelia Null PharmD, [place] Primary Care Clinical Industrial Hygiene Manager documented in this encounter [facility] 03-04-2024 History of Present illness Narrative Images from the original note were not included. Primary Care Pharmacy Visit CC (Reason for Consult): (E11.9, Z79.4) Type 2 diabetes mellitus without complication, with long-term current use of insulin (HCC) (primary encounter diagnosis) Goal(s): A1c <7% Last Collaborating Provider Visit: 12/06/23 Erik Clarke is a 68 year old male presenting for follow up visit in person. Patient consents to pharmacy collaborative practice agreement. Last Pharmacy Visit: 01/01/24 Interim Events: - 01/24/24 labs - BMP WNL; A1c improvement from 7.5% to 7.3% - 02/28/24 cardio visit - no med changes HPI: Reports doing well States he hasn't had any headaches in last 6 weeks Recently ended cardiac rehab States BP has been better lately States BG has been a little high recently, started noticing when he changed last sensor Current DM Medications: Metformin ER 500 mg #2 twice daily Jardiance 10 mg once daily Mounjaro 7.5 mg once weekly on Fridays Toujeo 38 units once daily Previously Trialed DM Meds: Glimepiride - changed to insulin Ariella Moser - can't remember why he stopped it Jardiance 25mg - balanitis Current HTN Meds: Lisinopril 40 mg once daily Chlorthalidone 12.5 mg once daily Carvedilol 25 mg twice daily Diet Denies any recent changes Had a couple cups of coffee this morning GLYCEMIC CONTROL: Glucometer present at visit: Yes Hypoglycemia: No CGM Data Past medical history reviewed. ALLERGIES Allergen Reactions Verapamil Other: See Comments Severe debilitating cluster headaches Current Outpatient Medications Medication Sig Dispense Refill tamsulosin (FLOMAX) 0.4 mg TAKE 1 CAPSULE ONCE DAILY 90 capsule 1 insulin glargine U-300 conc (TOUJEO SOLOSTAR U-300 INSULIN) 300 unit/mL (1.5 mL) Inject 38 Units subcutaneously once daily. galcanezumab-gnlm (EMGALITY SYRINGE) 300 mg/3 mL (100 mg/mL x 3) syringe Do not shake. Inject three 100 ml doses for every month as long as headaches persist. 3 mL 5 rosuvastatin (CRESTOR) 10 mg tablet take 1 tablet once daily 90 tablet 3 iv contrast (will be provided with radiology test) MRA Carotid WO/W Inject, intravenously, once for 1 dose. No IV access, insert saline lock prior to the beginning of sedation, infusion, injection of imaging exam. Discontinue saline lock post exam. If Pt. has a central line or IVAD, may access for administration according to line specific nursing protocol. Once exam is complete flush line and de-access according to line specific nursing protocol in the MR contrast administration guidelines link. 1 Each 0 chlorthalidone (HYGROTON) 25 mg tablet Take 0.5 tablets by mouth once daily. 45 tablet 1 carvedilol (COREG) 25 mg tablet Take 1 tablet by mouth two times a day. 90 tablet 3 lisinopril (ZESTRIL) 40 mg tablet Take 1 tablet by mouth once daily. 90 tablet 3 potassium chloride ER (KLOR-CON) 20 mEq tablet Take 1 tablet by mouth once daily. 5 tablet 0 Lancets Use as instructed to check blood sugar twice daily 200 Each 3 blood sugar diagnostic (BLOOD GLUCOSE TEST) test strip Use as instructed to check blood sugar twice daily 200 Each 3 Blood-Glucose Meter Use to check blood sugar 2 times per day 1 Each 0 tirzepatide (MOUNJARO) 7.5 mg/0.5 mL pen injector Inject 7.5 mg subcutaneously one time a week. 6 mL 1 Blood-Glucose Sensor (DEXCOM G7 SENSOR) yesenia APPLY NEW SENSOR EVERY 10 DAYS 9 Each 3 BRILINTA 90 mg tablet take 1 tablet twice a day 180 tablet 3 metFORMIN ER (GLUCOPHAGE XR) 500 mg 24 hr tablet TAKE 2 TABLETS 2 TIMES DAILY WITH MEALS 360 tablet 3 BD ULTRAFINE III MINI PEN 31 gauge x 3/16 USE AND DISCARD 1 PEN NEEDLE ONCE DAILY WITH INSULIN PEN 90 Each 3 Blood Pressure Monitor Use to monitor blood pressure 1 Each 0 empagliflozin (JARDIANCE) 10 mg tablet Take 1 tablet by mouth daily with breakfast. 90 tablet 3 Blood-Glucose Meter,Continuous (DEXCOM G7 GENERATOR ASSEMBLER) [facility] [place] to monitor glucose, IDDM, E 11.8863 aspirin, enteric coated (ECOTRIN LOW STRENGTH) 81 mg EC tablet Take 1 tablet by mouth once daily. No current facility-administered medications for this visit. Pill bottles are not present. Adherence: denies missed doses. Rx coverage: Payor: MEDICARE / Plan: MEDICARE A AND B / Product Type: Medicare / Medications affordable? Yes PHARMACOTHERAPY PREVENTATIVE MEDS: On MARY BETH/ARB: Yes On Statin: Yes On ASA: Yes EXAM: There were no vitals taken for this visit. Last 3 Encounter BP Readings: Date: BP: 02/28/2024 134/80 01/01/2024 153/89 12/27/2023 127/85 Wt: 89 kg (196 lb 3.4 oz) BMI: 29.84 kg/(m^2) LABS: Lab Results Component Value Date HBA1C 7.3 01/23/2024 HBA1C 7.5 08/15/2023 HBA1C 7.7 11/14/2022 HBA1C 7.9 12/13/2021 HBA1C 9.1 04/05/2020 HBA1C 9.0 11/03/2019 HBA1C 8.4 03/14/2019 HBA1C 8.0 08/24/2018 Glucose 159 01/23/2024 BUN 20 01/23/2024 Creatinine 0.74 01/23/2024 Sodium 139 01/23/2024 Potassium 4.0 01/23/2024 Chloride 100 01/23/2024 CO2 25 01/23/2024 Protein, Total 7.6 11/18/2023 Albumin 4.5 11/18/2023 Calcium 9.9 01/23/2024 Alkaline Phosphatase 52 11/18/2023 Bilirubin, Total 1.6 11/18/2023 AST 19 11/18/2023 ALT 18 11/18/2023 Lab Results Component Value Date CHOL 92 12/04/2023 CHOL 146 04/05/2020 LDL 8 12/04/2023 LDL 53 04/05/2020 HDL 33 12/04/2023 HDL 31 04/05/2020 TG 256 12/04/2023 TG 310 04/05/2020 Albumin/Creat Ratio (mg/g) Date Value 12/04/2023 134 (H) eGFR-All Other Races Date Value 06/09/2021 >60 04/05/2020 >60 . Estimated Glomerular Filtration Rate (mL/min/1.73m ) Date Value 01/23/2024 98 ASSESSMENT/PLAN: 1. Type 2 diabetes mellitus without complication, with long-term current use of insulin (HCC) - ICD9: 250.00, V58.67, ICD10: E11.9, Z79.4 (primary diagnosis) - Improving control - Increase Mounjaro to 10 mg once weekly (pended Rx for provider signature) - Continue all other medications as prescribed - Statin prescribed - rosuvastatin - Blood glucose monitoring on a continuous glucose monitoring schedule - Counseled on healthy diet and regular exercise - Discussed diabetic education issues of hypoglycemic/hyperglycemic symptoms and medication-specific side effects and monitoring - Follow up in 2 months, sooner should any other issues arise. Follow Up: Next PCP visit: 06/05/23 Next PharmD visit: 04/29/24 Ophelia Null, Margarita, BCACP Primary Care Clinical Industrial Hygiene Manager I spent a total of 25 minutes on the date of the service which included preparing to see the patient, [id number] patient care, completing clinical documentation, counseling and educating the patient/family/caregiver, and ordering medications, tests, or procedures. documented in this encounter [facility] 03-04-2024 Instructions Ophelia Null RPh - 03/04/2024 9:00 AM EST Increase Mounjaro 10 mg once weekly documented in this encounter [facility] 03-04-2024 Note HNO ID: [id number] Author: OPHELIA NULL RPh Service: ? Author Type: Pharmacist Type: Progress Notes Filed: 03/04/2024 09:29 Note Text: Primary Care Pharmacy Visit CC (Reason for Consult): (E11.9, Z79.4) Type 2 diabetes mellitus without complication, with long-term current use of insulin (HCC) (primary encounter diagnosis) Goal(s): A1c <7% Last Collaborating Provider Visit: 12/06/23 Erik Clarke is a 68 year old male presenting for follow up visit in person. Patient consents to pharmacy collaborative practice agreement. Last Pharmacy Visit: 01/01/24 Interim Events: - 01/24/24 labs - BMP WNL; A1c improvement from 7.5% to 7.3% - 11/7/24 cardio visit - no med changes HPI: Reports doing well States he hasn't had any headaches in last 6 weeks Recently ended cardiac rehab States BP has been better lately States BG has been a little high recently, started noticing when he changed last sensor Current DM Medications: Metformin ER 500 mg #2 twice daily Jardiance 10 mg once daily Mounjaro 7.5 mg once weekly on Fridays Toujeo 38 units once daily Previously Trialed DM Meds: Glimepiride - changed to insulin Ariella Moser - can't remember why he stopped it Jardiance 25mg - balanitis Current HTN Meds: Lisinopril 40 mg once daily Chlorthalidone 12.5 mg once daily Carvedilol 25 mg twice daily Diet Denies any recent changes Had a couple cups of coffee this morning GLYCEMIC CONTROL: Glucometer present at visit: Yes Hypoglycemia: No CGM Data Past medical history reviewed. ALLERGIES Allergen Reactions Verapamil Other: See Comments Severe debilitating cluster headaches Current Outpatient Medications Medication Sig Dispense Refill tamsulosin (FLOMAX) 0.4 mg TAKE 1 CAPSULE ONCE DAILY 90 capsule 1 insulin glargine U-300 conc (TOUJEO SOLOSTAR U-300 INSULIN) 300 unit/mL (1.5 mL) Inject 38 Units subcutaneously once daily. galcanezumab-gnlm (EMGALITY SYRINGE) 300 mg/3 mL (100 mg/mL x 3) syringe Do not shake. Inject three 100 ml doses for every month as long as headaches persist. 3 mL 5 rosuvastatin (CRESTOR) 10 mg tablet take 1 tablet once daily 90 tablet 3 iv contrast (will be provided with radiology test) MRA Carotid WO/W Inject, intravenously, once for 1 dose. No IV access, insert saline lock prior to the beginning of sedation, infusion, injection of imaging exam. Discontinue saline lock post exam. If Pt. has a central line or IVAD, may access for administration according to line specific nursing protocol. Once exam is complete flush line and de-access according to line specific nursing protocol in the MR contrast administration guidelines link. 1 Each 0 chlorthalidone (HYGROTON) 25 mg tablet Take 0.5 tablets by mouth once daily. 45 tablet 1 carvedilol (COREG) 25 mg tablet Take 1 tablet by mouth two times a day. 90 tablet 3 lisinopril (ZESTRIL) 40 mg tablet Take 1 tablet by mouth once daily. 90 tablet 3 potassium chloride ER (KLOR-CON) 20 mEq tablet Take 1 tablet by mouth once daily. 5 tablet 0 Lancets Use as instructed to check blood sugar twice daily 200 Each 3 blood sugar diagnostic (BLOOD GLUCOSE TEST) test strip Use as instructed to check blood sugar twice daily 200 Each 3 Blood-Glucose Meter Use to check blood sugar 2 times per day 1 Each 0 tirzepatide (MOUNJARO) 7.5 mg/0.5 mL pen injector Inject 7.5 mg subcutaneously one time a week. 6 mL 1 Blood-Glucose Sensor (DEXCOM G7 SENSOR) yesenia APPLY NEW SENSOR EVERY 10 DAYS 9 Each 3 BRILINTA 90 mg tablet take 1 tablet twice a day 180 tablet 3 metFORMIN ER (GLUCOPHAGE XR) 500 mg 24 hr tablet TAKE 2 TABLETS 2 TIMES DAILY WITH MEALS 360 tablet 3 BD ULTRAFINE III MINI PEN 31 gauge x 3/16 USE AND DISCARD 1 PEN NEEDLE ONCE DAILY WITH INSULIN PEN 90 Each 3 Blood Pressure Monitor Use to monitor blood pressure 1 Each 0 empagliflozin (JARDIANCE) 10 mg tablet Take 1 tablet by mouth daily with breakfast. 90 tablet 3 Blood-Glucose Meter,Continuous (DEXCOM G7 GENERATOR ASSEMBLER) [facility] continuously to monitor glucose, IDDM, E 11.3293 aspirin, enteric coated (ECOTRIN LOW STRENGTH) 81 mg EC tablet Take 1 tablet by mouth once daily. No current facility-administered medications for this visit. Pill bottles are not present. Adherence: denies missed doses. Rx coverage: Payor: MEDICARE / Plan: MEDICARE A AND B / Product Type: Medicare / Medications affordable? Yes PHARMACOTHERAPY PREVENTATIVE MEDS: On MARY BETH/ARB: Yes On Statin: Yes On ASA: Yes EXAM: There were no vitals taken for this visit. Last 3 Encounter BP Readings: Date: BP: 02/28/2024 134/80 01/01/2024 153/89 12/27/2023 127/85 Wt: 89 kg (196 lb 3.4 oz) BMI: 29.84 kg/(m2) LABS: Lab Results Component Value Date HBA1C 7.3 01/23/2024 HBA1C 7.5 08/15/2023 HBA1C 7.7 11/14/2022 HBA1C 7.9 12/13/2021 HBA1C 9.1 04/05/2020 HBA1C 9.0 11/03/2019 HBA1C 8.4 03/14/2019 HBA1C 8.0 08/24/2018 Glucose 159 01/23/2024 BUN (more content not included)... [facility] 02-28-2024 Instructions Antoinette Alicea APRN.CNP - 02/28/2024 8:18 AM EST PLAN AND RECOMMENDATIONS: Continue all the same medications. Follow up with Antoinette Alicea 6 months CONTACT INFORMATION: Antoinette Alicea APRN.CNP Cardiology Nurse Practitioner Section of [facility] Cardiology [facility] Dept of Cardiovascular Medicine [facility] [place] [address] [place] [address] Office Office documented in this encounter [facility] 02-28-2024 Note HNO ID: [id number] Author: ANTOINETTE ALICEA APRN.CNP Service: ? Author Type: Nurse Practitioner Type: Progress Notes Filed: 03/03/2024 16:03 Note Text: [facility] [place] Everardo Maxi Espinoza Department of Cardiovascular Medicine SECTION OF CLINICAL CARDIOLOGY OUTPATIENT VISIT DATE February 28, 2024 OUTPATIENT VISIT TYPE ESTABLISHED PRIMARY CARE PHYSICIAN: Denis Rivero [address] [place] [address] REFERRING PHYSICIAN: Antoinette Alicea [address] [place] [address] CHIEF COMPLAINT: Follow Up HISTORY OF PRESENT ILLNESS: Mr. Clarke is a 68 year old male with PMH of hokum status post myomectomy and AVR earlier this year, hyperlipidemia, hypertension, DM 1, who presents today for a cardiovascular medicine follow-up visit after I saw him in December. At that time I ordered an echocardiogram to reevaluate his valve and EF. We reviewed this study today. His EF has improved and his valve is without any regurgitation. He denies shortness of breath, chest pain, palpitations, dizziness, lightheadedness, lower extremity edema, PND, orthopnea, presyncope, syncope, or claudication symptoms Subjective PAST MEDICAL HISTORY Diagnosis Date BPH (benign prostatic hypertrophy) with urinary retention 01/22/2012 Bradycardia Coronary artery disease involving [place] coronary artery of [place] heart without angina pectoris 05/30/2019 History: s/p CATRACHITA. On Brilinta ED (erectile dysfunction) HOCM (hypertrophic obstructive cardiomyopathy) ([facility]) 05/15/2023 History: HOCM Hyperlipidemia LDL goal < 100 01/22/2012 Hypertension 01/22/2012 Nonrheumatic aortic (valve) stenosis 05/30/2019 History: Severe Obesity S/P AVR 09/18/2023 S/P myomectomy 09/18/2023 Status post insertion of drug eluting coronary artery stent 08/28/2022 Type 2 diabetes mellitus not at goal 01/22/2012 PAST SURGICAL HISTORY Procedure Laterality Date CARDIAC CATHETERIZATION HX 1999, 2004 no blockages, mildly leaky valve LEFT HEART CATH,PERCUTANEOUS 06/2022 stent placed PAST SURGICAL HISTORY OF 12/2015 L3-S1 laminectomy, decompression PAST SURGICAL HISTORY OF 01/16/2017 Lumbar reexploration L3-S1 with laminectomy and decompression Social History Tobacco Use Smoking status: Former Current packs/day: 0.00 Types: Cigarettes Quit date: 01/21/2010 Years since quittin.1 Smokeless tobacco: Current Types: Chew Tobacco comments: Patient states he has been chewing since he was younger - about a half can. Patient states it is the pouch type. Vaping Use Vaping status: Never Used Substance Use Topics Alcohol use: No Drug use: No FAMILY HISTORY Problem Relation Age of Onset Diabetes Mother Heart Father Diabetes Father ALLERGIES: ALLERGIES No Known Allergies MEDICATIONS: tamsulosin (FLOMAX) 0.4 mg TAKE 1 CAPSULE ONCE DAILY insulin glargine U-300 conc (TOUJEO SOLOSTAR U-300 INSULIN) 300 unit/mL (1.5 mL) Inject 38 Units subcutaneously once daily. galcanezumab-gnlm (EMGALITY SYRINGE) 300 mg/3 mL (100 mg/mL x 3) syringe Do not shake. Inject three 100 ml doses for every month as long as headaches persist. rosuvastatin (CRESTOR) 10 mg tablet take 1 tablet once daily iv contrast (will be provided with radiology test) MRA Carotid WO/W Inject, intravenously, once for 1 dose. No IV access, insert saline lock prior to the beginning of sedation, infusion, injection of imaging exam. Discontinue saline lock post exam. If Pt. has a central line or IVAD, may access for administration according to line specific nursing protocol. Once exam is complete flush line and de-access according to line specific nursing protocol in the MR contrast administration guidelines link. chlorthalidone (HYGROTON) 25 mg tablet Take 0.5 tablets by mouth once daily. carvedilol (COREG) 25 mg tablet Take 1 tablet by mouth two times a day. lisinopril (ZESTRIL) 40 mg tablet Take 1 tablet by mouth once daily. potassium chloride ER (KLOR-CON) 20 mEq tablet Take 1 tablet by mouth once daily. Lancets Use as instructed to check blood sugar twice daily blood sugar diagnostic (BLOOD GLUCOSE TEST) test strip Use as instructed to check blood sugar twice daily Blood-Glucose Meter Use to check blood sugar 2 times per day tirzepatide (MOUNJARO) 7.5 mg/0.5 mL pen injector Inject 7.5 mg subcutaneously one time a week. Blood-Glucose Sensor (DEXCOM G7 SENSOR) yesenia APPLY NEW SENSOR EVERY 10 DAYS BRILINTA 90 mg tablet take 1 tablet twice a day metFORMIN ER (GLUCOPHAGE XR) 500 mg 24 hr tablet TAKE 2 TABLETS 2 TIMES DAILY WITH MEALS BD ULTRAFINE III MINI PEN 31 gauge x 3/16 USE AND DISCARD 1 PEN NEEDLE ONCE DAILY WITH INSULIN PEN Blood Pressure Monitor Use to monitor blood pressure empagliflozin (JARDIANCE) 10 mg tablet Take 1 tablet by mouth daily with breakfast. Blood-Glucose Meter,Continuous (DEXCOM G7 GENERATOR ASSEMBLER) misc Use main (more content not included)... [facility] 02-28-2024 History of Present illness Narrative Images from the original note were not included. [facility] [place] John Espinoza Department of Cardiovascular Medicine SECTION OF CLINICAL CARDIOLOGY OUTPATIENT VISIT DATE February 28, 2024 OUTPATIENT VISIT TYPE ESTABLISHED PRIMARY CARE PHYSICIAN: Denis Rivero [address] [place] [address] REFERRING PHYSICIAN: Antoinette Alicea [address] [phone] CHIEF COMPLAINT: Follow Up HISTORY OF PRESENT ILLNESS: Mr. Clarke is a 68 year old male with PMH of hokum status post myomectomy and AVR earlier this year, hyperlipidemia, hypertension, DM 1, who presents today for a cardiovascular medicine follow-up visit after I saw him in December. At that time I ordered an echocardiogram to reevaluate his valve and EF. We reviewed this study today. His EF has improved and his valve is without any regurgitation. He denies shortness of breath, chest pain, palpitations, dizziness, lightheadedness, lower extremity edema, PND, orthopnea, presyncope, syncope, or claudication symptoms Subjective PAST MEDICAL HISTORY Diagnosis Date BPH (benign prostatic hypertrophy) with urinary retention 01/22/2012 Bradycardia Coronary artery disease involving [place] coronary artery of [place] heart without angina pectoris 05/30/2019 History: s/p CATRACHITA. On Brilinta ED (erectile dysfunction) HOCM (hypertrophic obstructive cardiomyopathy) ([facility]) 05/15/2023 History: HOCM Hyperlipidemia LDL goal < 100 01/22/2012 Hypertension 01/22/2012 Nonrheumatic aortic (valve) stenosis 05/30/2019 History: Severe Obesity S/P AVR 09/18/2023 S/P myomectomy 09/18/2023 Status post insertion of drug eluting coronary artery stent 08/28/2022 Type 2 diabetes mellitus not at goal 01/22/2012 PAST SURGICAL HISTORY Procedure Laterality Date CARDIAC CATHETERIZATION HX 1999, 2004 no blockages, mildly leaky valve LEFT HEART CATH,PERCUTANEOUS 06/2022 stent placed PAST SURGICAL HISTORY OF 12/2015 L3-S1 laminectomy, decompression PAST SURGICAL HISTORY OF 01/16/2017 Lumbar reexploration L3-S1 with laminectomy and decompression Social History Tobacco Use Smoking status: Former Current packs/day: 0.00 Types: Cigarettes Quit date: 01/21/2010 Years since quittin.1 Smokeless tobacco: Current Types: Chew Tobacco comments: Patient states he has been chewing since he was younger - about a half can. Patient states it is the pouch type. Vaping Use Vaping status: Never Used Substance Use Topics Alcohol use: No Drug use: No FAMILY HISTORY Problem Relation Age of Onset Diabetes Mother Heart Father Diabetes Father ALLERGIES: ALLERGIES No Known Allergies MEDICATIONS: tamsulosin (FLOMAX) 0.4 mg TAKE 1 CAPSULE ONCE DAILY insulin glargine U-300 conc (TOUJEO SOLOSTAR U-300 INSULIN) 300 unit/mL (1.5 mL) Inject 38 Units subcutaneously once daily. galcanezumab-gnlm (EMGALITY SYRINGE) 300 mg/3 mL (100 mg/mL x 3) syringe Do not shake. Inject three 100 ml doses for every month as long as headaches persist. rosuvastatin (CRESTOR) 10 mg tablet take 1 tablet once daily iv contrast (will be provided with radiology test) MRA Carotid WO/W Inject, intravenously, once for 1 dose. No IV access, insert saline lock prior to the beginning of sedation, infusion, injection of imaging exam. Discontinue saline lock post exam. If Pt. has a central line or IVAD, may access for administration according to line specific nursing protocol. Once exam is complete flush line and de-access according to line specific nursing protocol in the MR contrast administration guidelines link. chlorthalidone (HYGROTON) 25 mg tablet Take 0.5 tablets by mouth once daily. carvedilol (COREG) 25 mg tablet Take 1 tablet by mouth two times a day. lisinopril (ZESTRIL) 40 mg tablet Take 1 tablet by mouth once daily. potassium chloride ER (KLOR-CON) 20 mEq tablet Take 1 tablet by mouth once daily. Lancets Use as instructed to check blood sugar twice daily blood sugar diagnostic (BLOOD GLUCOSE TEST) test strip Use as instructed to check blood sugar twice daily Blood-Glucose Meter Use to check blood sugar 2 times per day tirzepatide (MOUNJARO) 7.5 mg/0.5 mL pen injector Inject 7.5 mg subcutaneously one time a week. Blood-Glucose Sensor (DEXCOM G7 SENSOR) yes[place] APPLY NEW SENSOR EVERY 10 DAYS BRILINTA 90 mg tablet take 1 tablet twice a day metFORMIN ER (GLUCOPHAGE XR) 500 mg 24 hr tablet TAKE 2 TABLETS 2 TIMES DAILY WITH MEALS BD ULTRAFINE III MINI PEN 31 gauge x 3/16 USE AND DISCARD 1 PEN NEEDLE ONCE DAILY WITH INSULIN PEN Blood Pressure Monitor Use to monitor blood pressure empagliflozin (JARDIANCE) 10 mg tablet Take 1 tablet by mouth daily with breakfast. Blood-Glucose Meter,Continuous (DEXCOM G7 GENERATOR ASSEMBLER) [facility] [place] continuously to monitor glucose, IDDM, E 11.3293 aspirin, enteric coated (ECOTRIN LOW STRENGTH) 81 mg EC tablet Take 1 tablet by mouth once daily. REVIEW OF SYSTEMS: CARD: See HPI GENERAL: Negative for: Weight loss or gain, Fever and/or Chills HEENT: Negative for: Headache, Impaired Vision, Glasses, Hearing Impairment, Ringing in Ears, Nosebleeds, Bleeding Gums NECK: Negative for: Swelling, Pain, Stiffness RESPIRATORY: Negative for: Cough, Blood in Sputum, Shortness of breath, Wheezing, Apnea GASTROINTESTINAL: Negative for: Nausea, Vomiting, Diarrhea, Blood in stool, or Dark black stools MUSCULOSKELETAL: Negative for: Muscle or joint pain, Stiffness , Joint swelling NEUROLOGIC: Negative for: focal numbness/weakness, headaches, visual changes, ataxia, speech/language loss SKIN: Negative for: Rashes, Itching HEMATOLOGICAL/LYMPHATIC: Negative for: Easy bruising , Easy bleeding ENDOCRINE: Negative for: Heat or cold intolerance, Excessive sweating, Frequent urination, Frequent thirst Objective PHYSICAL EXAMINATION: BP 134/80 Pulse 81 Wt 89 kg (196 lb 3.4 oz) SpO2 97% BMI 29.84 kg/m General: Well appearing, in no acute distress. Skin: No clubbing, no cyanosis. Eyes: Extra ocular movements intact Oropharynx: Teeth in good repair. Neck: No jugular venous distention, no carotid bruits, carotids have a normal upstroke. Lungs: Clear to auscultation bilaterally, no wheezing or rhonchi. Heart: Regular rhythm, S1, S2 normal, no S3, no S4, no heaves, no rub and no murmur. No peripheral edema . Grade 2/4 distal pulses bilaterally. Abdomen: Soft, nontender, bowel sounds normal, no bruits. Neuro: Oriented to person, place and time, alert, cooperative, gait coordinated. CARDIOVASCULAR MEDICINE TESTING: No Cardiovascular testing perfomed today. Last ECHO Result Conclusion ECHO Collected: 01/23/2024 9:22 AM (Final result) Impression: CONCLUSIONS: - Exam indication: Shortness of Breath - The abnormal regional wall motion pattern in conjunction with normal regional wall thickness is consistent with a LBBB abnormal conduction delay. - The left ventricle is normal in size. There is moderate left ventricular hypertrophy. Left ventricular systolic function is mildly decreased. EF = 50 5% (visual est.) Grade III left ventricular diastolic dysfunction. - The right ventricle is normal in size. Right ventricular systolic function is normal. - Perimount Magna Ease prosthetic aortic valve (size #25). There is no aortic valve regurgitation. The peak gradient is 20 mmHg, the mean gradient is 12 mmHg and the dimensionless valve index is 0.64. Gradients measured at a heart rate of 80 beats per minute. - Exam was compared with the prior echocardiographic exam performed on 08/21/23. Aortic Valve gradients are slightly higher on currnet exam ( but still within normal limits). Peak/mean gradients 20/12 mmHg on current study ( 9/6 mm on the prior study at similar heart rates). LV function has improved. * * * Final * * * Last EKG Result Conclusion EKG Collected: 11/18/2023 1:33 PM (Preliminary result) Impression: NORMAL SINUS RHYTHM LEFT AXIS DEVIATION LEFT BUNDLE BRANCH BLOCK ABNORMAL ECG Last CT Result Conclusion CTA CHEST (GATED) WO/W IVCON Exam End: 04/05/2023 9:32 AM (Final result) Impression: IMPRESSION: 1. Severe aortic valve stenosis. Details of anatomy and Measurements are described below. 2. Normal thoracic and abdominal aorta. No acute aortic pathology. 3. The pelvic arteries, including the common femoral arteries are normal in course, caliber, and contour , severe calcification of the pelvic arteries. The minimal luminal caliber throughout = 0.8 cm. 4. Aortic valve orifice area = 0.8 cm2 , Aortic valve calcium score is 1681 and Aortic annulus cross-sectional area: 5.71 cm2. 5. Noncardiovascular findings as described in body of the report. Drying Can Worker: PSCB Transcribe Date/Time: Apr 08 2023 10:26A Dictated by : ANDERSON PACE MD This examination was interpreted and the report reviewed and electronically signed by: ANDERSON PACE MD on Apr 09 2023 8:59AM EST Last MRI Result Conclusion MRI CARDIAC VELOCITY FLOW MAP Exam End: 06/27/2023 1:09 PM (Final result) Impression: IMPRESSION: - The left ventricle is normal in size (LV EDVi = 70 ml/m ). The left ventricular systolic function is normal (LV EF = 57 %). Diastolic septal contact of the anterior mitral leaflet is seen, but there is no systolic anterior motion of the anterior mitral leaflet. Chordal systolic anterior motion is seen. Flow dephasing is noted in the left ventricular outflow tract, on phase velocity mapping sequences,suggesting left ventricular outflow tract obstruction. - The right ventricle is normal in size (RV EDVi = 65 ml/m ). The right ventricular systolic function is normal (RV EF = 61 %). - Late gadolinium enhancement (LGE) sequences indicated the presence of diffuse mid myocardial, epicardial LGE involving the septal, anterior, inferior and lateral nguyễn of the left ventricle. The LGE involves 8% of the left ventricular myocardium, and the pattern does not support a diagnosis of hypertrophic cardiomyopathy. The pattern is more suggestive of pressure overload conditions such as uncontrolled hypertension/aortic stenosis. The extracevllular volume is within normal limits at 24%, arguing against cardiac amyloidosis. - Aortic valve leaflets are moderately thickened and calcified. The aortic valve area has been measured at 1.1 cm . Findings suggest moderate aortic stenosis. Mild central aortic insufficiency is seen. Regurgitant volume = 5 cc, regurgitant fraction = 6%. - The patient has not had a prior CC cardiac MR exam for comparison. * * * Final * * * RP Drying Can Worker: SERA Transcribe Date/Time: Jun 27 2023 11:17A Dictated by : VICENTE MOSS MD This examination was interpreted and the report reviewed and electronically signed by: VICENTE MOSS MD on Jun 27 2023 10:54PM EST There were no tests performed for review. I personally interviewed, confirmed and edited the above information if obtained by others. Conclusion: (I10) Essential hypertension (primary encounter diagnosis) Comment: Control Plan: Same meds (E78.2) Mixed hyperlipidemia Comment: Last LDL equaled 8; triglycerides 256 Plan: On Crestor 10 (Z95.5) Status post insertion of drug eluting coronary artery stent Comment: Feeling well doing well. Plan: Continue same meds (Z95.2) S/P AVR Comment: To be stable Plan: Continue same meds PLAN AND RECOMMENDATIONS: Continue all the same medications. Follow up with Antoinette Alicea 6 months CONTACT INFORMATION: Antoinette Alicea APRN.ANNIE Cardiology Nurse Practitioner Section of [facility] Dept of Cardiovascular Medicine [facility] [place] [address] [place] [id number] Office Office This note was partially generated using [employer] voice recognition system and may contain errors related to that system including grammar, punctuation, spelling, and words that may be inappropriate documented in this encounter [facility] 02-21-2024 History of Present illness Narrative QOL Call Tracking Documentation Follow-Up Type: Phone Call Call Attempt: 1st Attempt Call Status: Patient will complete in [employer] documented in this encounter [facility] 02-21-2024 Note HNO ID: [id number] Author: DIANN DOTSON, RN Service: ? Author Type: Registered Nurse Type: Progress Notes Filed: 02/21/2024 10:21 Note Text: QOL Call Tracking Documentation Follow-Up Type: Phone Call Call Attempt: 1st Attempt Call Status: Patient will complete in MyChart [facility] 02-21-2024 Note Patient Outreach ([facility]) ERIK CLARKE ([id number]) 1955 M Date Time Provider Department 02/21/24 DIANN DOTSON During your visit today, we recorded the following information about you: Diann Dotson RN 02/21/2024 10:21 AM Signed QOL Call Tracking Documentation Follow-Up Type: Phone Call Call Attempt: 1st Attempt Call Status: Patient will complete in [employer] Allergies As of Date: 02/21/2024 (No Known Allergies) Date Reviewed: 01/01/2024 Reviewed by: Ophelia Null formerly [facility] - Fully Assessed Prescriptions as of 02/21/2024 - tamsulosin (FLOMAX) 0.4 mg TAKE 1 CAPSULE ONCE DAILY - insulin glargine U-300 conc (TOUJEO SOLOSTAR U-300 INSULIN) 300 unit/mL (1.5 mL) Inject 38 Units subcutaneously once daily. - galcanezumab-gnlm (EMGALITY SYRINGE) 300 mg/3 mL (100 mg/mL x 3) syringe Do not shake. Inject three 100 ml doses for every month as long as headaches persist. - rosuvastatin (CRESTOR) 10 mg tablet take 1 tablet once daily - iv contrast (will be provided with radiology test) MRA Carotid WO/W Inject, intravenously, once for 1 dose. No IV access, insert saline lock prior to the beginning of sedation, infusion, injection of imaging exam. Discontinue saline lock post exam. If Pt. has a central line or IVAD, may access for administration according to line specific nursing protocol. Once exam is complete flush line and de-access according to line specific nursing protocol in the MR contrast administration guidelines link. - chlorthalidone (HYGROTON) 25 mg tablet Take 0.5 tablets by mouth once daily. - carvedilol (COREG) 25 mg tablet Take 1 tablet by mouth two times a day. - lisinopril (ZESTRIL) 40 mg tablet Take 1 tablet by mouth once daily. - potassium chloride ER (KLOR-CON) 20 mEq tablet Take 1 tablet by mouth once daily. - Lancets Use as instructed to check blood sugar twice daily - blood sugar diagnostic (BLOOD GLUCOSE TEST) test strip Use as instructed to check blood sugar twice daily - Blood-Glucose Meter Use to check blood sugar 2 times per day - tirzepatide (MOUNJARO) 7.5 mg/0.5 mL pen injector Inject 7.5 mg subcutaneously one time a week. - Blood-Glucose Sensor (DEXCOM G7 SENSOR) yesenia APPLY NEW SENSOR EVERY 10 DAYS - BRILINTA 90 mg tablet take 1 tablet twice a day - metFORMIN ER (GLUCOPHAGE XR) 500 mg 24 hr tablet TAKE 2 TABLETS 2 TIMES DAILY WITH MEALS - BD ULTRAFINE III MINI PEN 31 gauge x 3/16 USE AND DISCARD 1 PEN NEEDLE ONCE DAILY WITH INSULIN PEN - Blood Pressure Monitor Use to monitor blood pressure - empagliflozin (JARDIANCE) 10 mg tablet Take 1 tablet by mouth daily with breakfast. - Blood-Glucose Meter,Continuous (DEXCOM G7 GENERATOR ASSEMBLER) [facility] [place] continuously to monitor glucose, IDDM, E 11.1864 - aspirin, enteric coated (ECOTRIN LOW STRENGTH) 81 mg EC tablet Take 1 tablet by mouth once daily. 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*01/22/2012 Essential hypertension [I10] 01/22/2012 Hyperlipidemia [E78.5] 01/22/2012 Benign prostatic hyperplasia with lower urinary*01/22/2012 Colon polyps [K63.5] 07/15/2014 Other and unspecified angina pectoris [I20.9] 07/15/2014 10/12/2020 Erectile dysfunction [N52.9] 08/26/2014 Prolapsed lumbar disc [M51.26] 01/19/2017 Stable angina (HCC) [I20.89] 11/13/2017 Chewing tobacco nicotine dependence without com*08/27/2018 Lumbar spondylosis [M47.816] 08/27/2018 DDD (degenerative disc disease), lumbar [M51.36*08/27/2018 Lumbar radiculopathy [M54.16] 08/27/2018 Abnormal finding on echocardiogram [R93.1] 08/27/2018 10/12/2020 Heart murmur [R01.1] 08/27/2018 05/30/2019 Bradycardia [R00.1] 04/22/2019 08/17/2023 Nicotine use disorder, F17.2 [F17.200] 04/23/2019 Nonrheumatic aortic (valve) stenosis [I35.0] 05/30/2019 Coronary artery disease involving [place] martino*05/30/2019 Rotator cuff syndrome of left shoulder [M75.102]01/28/2020 Status post insertion of drug eluting coronary *08/28/2022 HOCM (hypertrophic obstructive cardiomyopathy) *05/15/2023 Discharge planning issues [Z75.8] 08/14/2023 Encounter for support and coordination of trans*08/14/2023 Post-op pain [G89.18] 08/16/2023 Hypovolemia [E86.1] 08/16/2023 Atelectasis [J98.11] 08/17/2023 Delirium [R41.0] 08/17/2023 Diabetes mellitus type 1, controlled, without c*08/18/2023 Hypervolemia [E87.70] 08/18/2023 S/P myomectomy [Z98.890] 09/18/2023 S/P AVR [Z95.2] 09/18/2023 Primary hypertension [I10] 09/18/2023 Encounter Status:Closed by DIANN DOTSON on 02/21/24 [facility] 02-05-2024 Telephone encounter Note This is not a card med >> sent to PCP for approval. Fernanda Dimas APRN.ROUGHENER [facility] 02-05-2024 Miscellaneous Notes This is not a card med >> sent to PCP for approval. Fernanda Dimas APRN.ROUGHENER GEORGES: 12/27/2023 William NOV: 02/28/2024 William documented in this encounter [facility] 02-05-2024 Telephone encounter Note GEORGES: 12/27/2023 William NOV: 02/28/2024 William [facility] 02-01-2024 Telephone encounter Note Received two EKG reports from [facility]. Obtained 01/29/24 Placed in scan basket [facility] 02-01-2024 Miscellaneous Notes Received two EKG reports from [facility]. Obtained 01/29/24 Placed in scan basket documented in this encounter [facility] 01-24-2024 Telephone encounter Note Reviewed lab results. BMP WNL now. A1c shows improvement from 7.5% to 7.3%. May consider titration of Mounjaro dose for additional glycemic control at next PharmD visit. Will continue current medications for now. Next PharmD visit scheduled for 03/04/24. Ophelia Null PharmD, VESTA Primary Care Clinical Industrial Hygiene Manager [facility] Work Phone: 01-24-2024 Miscellaneous Notes Reviewed lab results. BMP WNL now. A1c shows improvement from 7.5% to 7.3%. May consider titration of Mounjaro dose for additional glycemic control at next PharmD visit. Will continue current medications for now. Next PharmD visit scheduled for 03/04/24. Ophelia Null PharmD, VESTA Primary Care Clinical Industrial Hygiene Manager documented in this encounter [facility] 01-01-2024 History of Present illness Narrative Images from the original note were not included. Primary Care Pharmacy Visit CC (Reason for Consult): (I10) Hypertension, unspecified type (primary encounter diagnosis) (E11.9, Z79.4) Type 2 diabetes mellitus without complication, with long-term current use of insulin ([facility]) Goal(s): A1c <7% Last Collaborating Provider Visit: 12/06/23 Erik Clarke is a 68 year old male presenting for follow up visit in person. Patient consents to pharmacy collaborative practice agreement. Last Pharmacy Visit: 11/20/23 - chlorthalidone started, repeat BMP ordered Interim Events: - 12/04/23 BMP shows hypokalemia, plan to take potassium supplement as previously prescribed and repeat BMP in 1 week - 12/05/23 verapamil started for headaches - 12/13/23 verapamil stopped, Emgality ordered - 12/27/23 cardiology visit HPI: Reports doing okay States he's still having headaches but not as bad as before Reports BP has been a lot better recently at cardiac rehab; BP ~low 140s/80s. States he only has 5 sessions of cardiac rehab left States he's had a lot of appointments and testing for migraines. States he was put on verapamil for a couple days which caused a low heart rate so he was taken off of this. Now had Emgality ordered; however, has not received it to start yet Took BP meds this morning around 7 am; also had a couple cups of coffee this morning before appointment Current HTN Meds: Lisinopril 40 mg once daily - also taking an additional 5 mg tablet at night Chlorthalidone 12.5 mg once daily Carvedilol 25 mg twice daily Current DM Medications: Metformin ER 500 mg #2 twice daily Jardiance 10 mg once daily Mounjaro 7.5 mg once weekly on Fridays Toujeo 35 units once daily - taking 38 units once daily Previously Trialed DM Meds: Glimepiride - changed to insulin Ariella Moser - can't remember why he stopped it Jardiance 25mg - balanitis Diet Denies any recent changes Reports having 2 coups of coffee this morning right before appointment GLYCEMIC CONTROL: Glucometer present at visit: Yes Hypoglycemia: No CGM Data Past medical history reviewed. ALLERGIES No Known Allergies Current Outpatient Medications Medication Sig Dispense Refill galcanezumab-gnlm (EMGALITY SYRINGE) 300 mg/3 mL (100 mg/mL x 3) syringe Do not shake. Inject three 100 ml doses for every month as long as headaches persist. 3 mL 5 rosuvastatin (CRESTOR) 10 mg tablet take 1 tablet once daily 90 tablet 3 iv contrast (will be provided with radiology test) MRA Carotid WO/W Inject, intravenously, once for 1 dose. No IV access, insert saline lock prior to the beginning of sedation, infusion, injection of imaging exam. Discontinue saline lock post exam. If Pt. has a central line or IVAD, may access for administration according to line specific nursing protocol. Once exam is complete flush line and de-access according to line specific nursing protocol in the MR contrast administration guidelines link. 1 Each 0 chlorthalidone (HYGROTON) 25 mg tablet Take 0.5 tablets by mouth once daily. 45 tablet 1 carvedilol (COREG) 25 mg tablet Take 1 tablet by mouth two times a day. 90 tablet 3 lisinopril (ZESTRIL) 40 mg tablet Take 1 tablet by mouth once daily. 90 tablet 3 potassium chloride ER (KLOR-CON) 20 mEq tablet Take 1 tablet by mouth once daily. 5 tablet 0 Lancets Use as instructed to check blood sugar twice daily 200 Each 3 blood sugar diagnostic (BLOOD GLUCOSE TEST) test strip Use as instructed to check blood sugar twice daily 200 Each 3 insulin glargine U-300 conc (TOUJEO SOLOSTAR U-300 INSULIN) 300 unit/mL (1.5 mL) Inject 35 Units subcutaneously once daily. Blood-Glucose Meter Use to check blood sugar 2 times per day 1 Each 0 tirzepatide (MOUNJARO) 7.5 mg/0.5 mL pen injector Inject 7.5 mg subcutaneously one time a week. 6 mL 1 Blood-Glucose Sensor (DEXCOM G7 SENSOR) yesenia APPLY NEW SENSOR EVERY 10 DAYS 9 Each 3 tamsulosin (FLOMAX) 0.4 mg Take 1 capsule by mouth once daily. 90 capsule 1 BRILINTA 90 mg tablet take 1 tablet twice a day 180 tablet 3 metFORMIN ER (GLUCOPHAGE XR) 500 mg 24 hr tablet TAKE 2 TABLETS 2 TIMES DAILY WITH MEALS 360 tablet 3 BD ULTRAFINE III MINI PEN 31 gauge x 3/16 USE AND DISCARD 1 PEN NEEDLE ONCE DAILY WITH INSULIN PEN 90 Each 3 Blood Pressure Monitor Use to monitor blood pressure 1 Each 0 empagliflozin (JARDIANCE) 10 mg tablet Take 1 tablet by mouth daily with breakfast. 90 tablet 3 Blood-Glucose Meter,Continuous (DEXCOM G7 GENERATOR ASSEMBLER) [facility] [place] continuously to monitor glucose, IDDM, E 11.3293 aspirin, enteric coated (ECOTRIN LOW STRENGTH) 81 mg EC tablet Take 1 tablet by mouth once daily. No current facility-administered medications for this visit. Pill bottles are not present. Adherence: denies missed doses. Rx coverage: Payor: MEDICARE / Plan: MEDICARE A AND B / Product Type: Medicare / Medications affordable? Yes PHARMACOTHERAPY PREVENTATIVE MEDS: On MARY BETH/ARB: Yes On Statin: Yes On ASA: Yes EXAM: BP 153/89 (BP Site: Left Arm, BP Position: Sitting, BP Cuff Size: Regular Adult) Pulse 85 Last 3 Encounter BP Readings: Date: BP: 12/27/2023 127/85 12/06/2023 124/76 11/30/2023 144/82 Wt: 87.5 kg (192 lb 14.4 oz) BMI: 29.34 kg/(m^2) LABS: Lab Results Component Value Date HBA1C 7.5 08/15/2023 HBA1C 7.7 11/14/2022 HBA1C 7.8 07/03/2022 HBA1C 7.9 12/13/2021 HBA1C 9.1 04/05/2020 HBA1C 9.0 11/03/2019 HBA1C 8.4 03/14/2019 HBA1C 8.0 08/24/2018 Glucose 169 12/04/2023 BUN 22 12/04/2023 Creatinine 0.69 12/04/2023 Sodium 139 12/04/2023 Potassium 3.4 12/04/2023 Chloride 99 12/04/2023 CO2 26 12/04/2023 Protein, Total 7.6 11/18/2023 Albumin 4.5 11/18/2023 Calcium 9.7 12/04/2023 Alkaline Phosphatase 52 11/18/2023 Bilirubin, Total 1.6 11/18/2023 AST 19 11/18/2023 ALT 18 11/18/2023 Lab Results Component Value Date CHOL 92 12/04/2023 CHOL 146 04/05/2020 LDL 8 12/04/2023 LDL 53 04/05/2020 HDL 33 12/04/2023 HDL 31 04/05/2020 TG 256 12/04/2023 TG 310 04/05/2020 Albumin/Creat Ratio (mg/g) Date Value 12/04/2023 134 (H) eGFR-All Other Races Date Value 06/09/2021 >60 04/05/2020 >60 . Estimated Glomerular Filtration Rate (mL/min/1.73m ) Date Value 12/04/2023 100 ASSESSMENT/PLAN: 1. Hypertension, unspecified type - ICD9: 401.9, ICD10: I10 (primary diagnosis) - Improving control based on readings at cardiac rehab and last office visit readings (GEORGES 12/27/23 BP at goal). Elevated reading today in office likely due to caffeine intake prior to appointment. - Continue current medications. Instructed patient to continue with max lisinopril dose of 40 mg/day, as previously discussed - Recommend home blood pressure monitoring, to bring results to next visit - Encouraged sodium restriction, DASH or Mediterranean diet - Recommend regular aerobic exercise - Due for repeat BMP 2. Type 2 diabetes mellitus without complication, with long-term current use of insulin (HCC) - ICD9: 250.00, V58.67, ICD10: E11.9, Z79.4 - Control undetermined, due for labs - Continue current medications - Statin prescribed - rosuvastatin - Blood glucose monitoring on a continuous glucose monitoring schedule - Counseled on healthy diet and regular exercise - Follow up in 2 months, sooner should any other issues arise. - Due for A1c Follow Up: Next PCP visit: 06/05/24 Next PharmD visit: 03/04/24 Ophelia Null, Margarita, BCACP Primary Care Clinical Industrial Hygiene Manager I spent a total of 30 minutes on the date of the service which included preparing to see the patient, [id number] patient care, completing clinical documentation, counseling and educating the patient/family/caregiver, and ordering medications, tests, or procedures. documented in this encounter [facility] 12-28-2023 History of Present illness Narrative Radiology Service Progress Note DATE OF SERVICE: December 28, 2023 TIME: 1:33 PM PATIENT IDENTITY VERIFICATION COMPLETED USING TWO (2) STANDARD IDENTIFIERS: Name and Date of confirmed by patient verbally and Name and Date of confirmed by identification band. FALL SCREENING: Has the patient had 2 falls in the last year or 1 fall with injury or currently using an Ambulatory Assistive Device (Walker, Cane, Wheelchair, Crutches, etc.)? No PATIENT GENDER DATA: Male PATIENT RELEVANT IMPLANT DATA REVIEWED: Yes PATIENT PRESENTS WITH AN IMPLANTABLE OR ATTACHED GARAGE ATTENDANT: No ALLERGIES: Reviewed and unchanged CONTRAST ALLERGY: NO. EXAM: MRI - CONTRAST TYPE: GROUP II PERIPHERAL IV DATA: Ambulatory: A peripheral IV was started in the Left antecubital site with a Angio cath: 22 gauge. RADIOLOGY DEPARTMENT: MR; Exam(s) Completed: Head: [place] MRA Neck: Carotids MRA, bilateral SIGNATURE: LIIDA Rhodes Tech PATIENT NAME: Erik Clarke DATE: December 28, 2023 TIME: 1:33 PM documented in this encounter [facility] 12-28-2023 Note HNO ID: [id number] Author: ANGELICA PINEDA MRI Tech Service: Radiology Author Type: International Logistics Manager Type: Progress Notes Filed: 12/28/2023 13:45 Note Text: Radiology Service Progress Note DATE OF SERVICE: December 28, 2023 TIME: 1:33 PM PATIENT IDENTITY VERIFICATION COMPLETED USING TWO (2) STANDARD IDENTIFIERS: Name and Date of confirmed by patient verbally and Name and Date of confirmed by identification band. FALL SCREENING: Has the patient had 2 falls in the last year or 1 fall with injury or currently using an Ambulatory Assistive Device (Walker, Cane, Wheelchair, Crutches, etc.)? No PATIENT GENDER DATA: Male PATIENT RELEVANT IMPLANT DATA REVIEWED: Yes PATIENT PRESENTS WITH AN IMPLANTABLE OR ATTACHED GARAGE ATTENDANT: No ALLERGIES: Reviewed and unchanged CONTRAST ALLERGY: NO. EXAM: MRI - CONTRAST TYPE: GROUP II PERIPHERAL IV DATA: Ambulatory: A peripheral IV was started in the Left antecubital site with a Angio cath: 22 gauge. RADIOLOGY DEPARTMENT: MR; Exam(s) Completed: Head: [place] MRA Neck: Carotids MRA, bilateral SIGNATURE: LIDIA Rhodes PATIENT NAME: Erik Clarke DATE: December 28, 2023 TIME: 1:33 PM [facility] 12-27-2023 Telephone encounter Note Received incoming fax from [employer] date 12/27/23. Emgality approval 12/27/23 to 12/26/24. Auth number is PA# [employer] ([facility]) [id number] SS Sent to scanning. [facility] 12-27-2023 Miscellaneous Notes Received incoming fax from [employer] 12/27/23. Emgality approval 12/27/23 to 12/26/24. Auth number is PA# [employer] ([facility]) [id number] SS Sent to scanning. Appeal started and faxed over. Fernanda Johnson LPN PA has been denied, please see denial letter attached in medication list. Denial states medication is only approved for use with preventative treatment of migraines in adults. Diagnosis in chart is thunderclap headache and cluster headache. Please advise, thank you. GERA Islas Questions answered via [employer]. Fernanda Johnson LPN PA request not yet received at this time. GERA Islas Will try emgality. Will need a prior auth before approved. Inject three 100ml syringes every month for as long as headaches persist. Spoke to patient, verified name and date of . Advised patient of message below, advised scheduling team will reach out to him to schedule an appointment. Regarding headaches patient would like to try the Emgality as recommended by , pharmacy was verified. Amanda Pierce LPN December 13, 2023 10:58 AM Spoke with patient's vp analysis who recommended patient see an inspector receiving with the recent changes seen at cardiac rehab. I have placed a consult for this. For headaches, if he is still having headaches, please let me know. We can try another medication called emgality for cluster headaches. Candi with [facility] calling regarding patient with a message for FRANK Galarza. Candi reports patient is there for rehab now and has a heart monitor on. Reports patient's heart rhythm is showing marked sinus arrhythmia with periods of pauses, which is new for patient. EKG completed as well. Pt asymptomatic and no lightheadedness. Candi wanted to update Ca Peterson, as Ca ordered Verapamil for patient recently. Pt's BP is 120/60. Please call patient if Ca has further recommendation or orders. Chana Spears RN documented in this encounter [facility] 12-27-2023 Instructions Antoinette Alicea APRN.ANNIE - 12/27/2023 8:31 AM EDT PLAN AND RECOMMENDATIONS: Echocardiogram Follow up with me in 2 months. Same medications. CONTACT INFORMATION: Antoinette Alicea APRN.ANNIE Cardiology Nurse Practitioner Section of Regional Cardiology [facility] Dept of Cardiovascular Medicine [facility] [place] [address] [place] [address] Office Office documented in this encounter [facility] 12-27-2023 History of Present illness Narrative Images from the original note were not included. [facility] [place] [facility] Department of Cardiovascular Medicine SECTION OF CLINICAL CARDIOLOGY OUTPATIENT VISIT DATE December 27, 2023 OUTPATIENT VISIT TYPE ESTABLISHED PRIMARY CARE PHYSICIAN: Denis Rivero [address] [place] [address] REFERRING PHYSICIAN: No referring provider defined for this encounter. CHIEF COMPLAINT: No chief complaint on file. HISTORY OF PRESENT ILLNESS: Mr. Clarke is a 68 year old male with PMH of DM2, HTN, HLD, CAD/stent who presents today for a cardiovascular medicine follow-up visit after he was seen by Dr Barron August 2023. Since the last visit he has developed cluster headaches. Very excruciating. Debilitating and states I cannot live like this. Saw neuro put on blood pressure verapamil 3 times daily . Sent for MRI which was negative but has MRA tomorrow. Had to quit rehab due to heart rate not being variable enough. Taken off verapamil. Has been on lisinopril and coreg. Given oxygen machine which is the only thing that helps with headaches; he also uses the OTC oxygen cans for portable spot treatment, which seems to help as well. Started a couple of months ago. Frontal headache, right eye esquivel with this, but no visual disturbance. 142/80 at time of headache at home that he has checked once. As the headache starts he has to get to the oxygen as it is excrutiating. . At the ED, his BP was 200/100 thus the verapamil Had heart surgery 08/16/2023, myomectomy and AVR; Feels like he has been going down hill since then. Wearing a [employer] Heart monitor for one week but has MRA tomorrow so will take off and send back. . He denies shortness of breath, chest pain, palpitations, dizziness, lightheadedness, lower extremity edema, PND, orthopnea, presyncope, syncope, or claudication symptoms Subjective PAST MEDICAL HISTORY 01/22/2012: BPH (benign prostatic hypertrophy) with urinary retention No date: Bradycardia 05/30/2019: Coronary artery disease involving [place] coronary artery of [place] heart without angina pectoris Comment: History: s/p CATRACHITA. On Brilinta No date: ED (erectile dysfunction) 05/15/2023: HOCM (hypertrophic obstructive cardiomyopathy) ([facility]) Comment: History: HOCM 01/22/2012: Hyperlipidemia LDL goal < 100 01/22/2012: Hypertension 05/30/2019: Nonrheumatic aortic (valve) stenosis Comment: History: Severe No date: Obesity 09/18/2023: S/P AVR 09/18/2023: S/P myomectomy 08/28/2022: Status post insertion of drug eluting coronary artery stent 01/22/2012: Type 2 diabetes mellitus not at goal PAST SURGICAL HISTORY 1999, 2004: CARDIAC CATHETERIZATION HX Comment: no blockages, mildly leaky valve 06/2022: LEFT HEART CATH,PERCUTANEOUS Comment: stent placed 12/2015: PAST SURGICAL HISTORY OF Comment: L3-S1 laminectomy, decompression 01/16/2017: PAST SURGICAL HISTORY OF Comment: Lumbar reexploration L3-S1 with laminectomy and decompression Social History Tobacco Use Smoking status: Former Current packs/day: 0.00 Types: Cigarettes Quit date: 01/21/2010 Years since quittin.9 Smokeless tobacco: Current Types: Chew Tobacco comments: Patient states he has been chewing since he was younger - about a half can. Patient states it is the pouch type. Vaping Use Vaping status: Never Used Substance Use Topics Alcohol use: No Drug use: No FAMILY HISTORY Problem Relation Age of Onset Diabetes Mother Heart Father Diabetes Father ALLERGIES: ALLERGIES No Known Allergies MEDICATIONS: galcanezumab-gnlm (EMGALITY SYRINGE) 300 mg/3 mL (100 mg/mL x 3) syringe Do not shake. Inject three 100 ml doses for every month as long as headaches persist. rosuvastatin (CRESTOR) 10 mg tablet take 1 tablet once daily verapamil 80 mg tablet Take 1 tablet by mouth three times a day. iv contrast (will be provided with radiology test) MRA Carotid WO/W Inject, intravenously, once for 1 dose. No IV access, insert saline lock prior to the beginning of sedation, infusion, injection of imaging exam. Discontinue saline lock post exam. If Pt. has a central line or IVAD, may access for administration according to line specific nursing protocol. Once exam is complete flush line and de-access according to line specific nursing protocol in the MR contrast administration guidelines link. chlorthalidone (HYGROTON) 25 mg tablet Take 0.5 tablets by mouth once daily. carvedilol (COREG) 25 mg tablet Take 1 tablet by mouth two times a day. lisinopril (ZESTRIL) 40 mg tablet Take 1 tablet by mouth once daily. potassium chloride ER (KLOR-CON) 20 mEq tablet Take 1 tablet by mouth once daily. Lancets Use as instructed to check blood sugar twice daily blood sugar diagnostic (BLOOD GLUCOSE TEST) test strip Use as instructed to check blood sugar twice daily insulin glargine U-300 conc (TOUJEO SOLOSTAR U-300 INSULIN) 300 unit/mL (1.5 mL) Inject 35 Units subcutaneously once daily. Blood-Glucose Meter Use to check blood sugar 2 times per day tirzepatide (MOUNJARO) 7.5 mg/0.5 mL pen injector Inject 7.5 mg subcutaneously one time a week. Blood-Glucose Sensor (DEXCOM G7 SENSOR) yesenia APPLY NEW SENSOR EVERY 10 DAYS tamsulosin (FLOMAX) 0.4 mg Take 1 capsule by mouth once daily. BRILINTA 90 mg tablet take 1 tablet twice a day metFORMIN ER (GLUCOPHAGE XR) 500 mg 24 hr tablet TAKE 2 TABLETS 2 TIMES DAILY WITH MEALS BD ULTRAFINE III MINI PEN 31 gauge x 3/16 USE AND DISCARD 1 PEN NEEDLE ONCE DAILY WITH INSULIN PEN Blood Pressure Monitor Use to monitor blood pressure empagliflozin (JARDIANCE) 10 mg tablet Take 1 tablet by mouth daily with breakfast. Blood-Glucose Meter,Continuous (DEXCOM G7 GENERATOR ASSEMBLER) [facility] [place] continuously to monitor glucose, IDDM, E 11.3293 aspirin, enteric coated (ECOTRIN LOW STRENGTH) 81 mg EC tablet Take 1 tablet by mouth once daily. REVIEW OF SYSTEMS: CARD: See HPI GENERAL: Negative for: Weight loss or gain, Fever and/or Chills HEENT: Negative for: Headache, Impaired Vision, Glasses, Hearing Impairment, Ringing in Ears, Nosebleeds, Bleeding Gums NECK: Negative for: Swelling, Pain, Stiffness RESPIRATORY: Negative for: Cough, Blood in Sputum, Shortness of breath, Wheezing, Apnea GASTROINTESTINAL: Negative for: Nausea, Vomiting, Diarrhea, Blood in stool, or Dark black stools MUSCULOSKELETAL: Negative for: Muscle or joint pain, Stiffness , Joint swelling NEUROLOGIC: see HPI HEMATOLOGICAL/LYMPHATIC: Negative for: Easy bruising , Easy bleeding Objective PHYSICAL EXAMINATION: There were no vitals taken for this visit. General: Well appearing, in no acute distress. Skin: No clubbing, no cyanosis. Eyes: Extra ocular movements intac Neck: No jugular venous distention, no carotid bruits Lungs: Clear to auscultation bilaterally, no wheezing or rhonchi. Heart: Regular rhythm, S1, S2 normal, no murmur. No peripheral edema . Grade 2/4 distal pulses bilaterally. Neuro: Oriented to person, place and time, alert, cooperative, gait coordinated. CARDIOVASCULAR MEDICINE TESTING: No Cardiovascular testing perfomed today. Last ECHO Result Conclusion ECHO Collected: 08/21/2023 2:19 PM (Final result) Impression: CONCLUSIONS: - Technically difficult exam due to suboptimal positioning, body habitus and post op. - Exam indication: S/P AVR & Myectomy (08/16/2023) - The left ventricle is normal in size. Left ventricular systolic function is normal. EF = 55 5% (2D biplane) Left ventricular diastolic function was not evaluated. - The right ventricle is normal in size. Right ventricular systolic function is normal. - Perimount Magna Ease prosthetic aortic valve (size #25). There is no aortic valve regurgitation. The peak gradient is 9 mmHg, the mean gradient is 6 mmHg and the dimensionless valve index is 0.66. Prior gradients of 19/10 mmHg. -Rest (85 bpm) Mild chordal TRELL, trivial MR, LVOT peak gradient 9 mmHg. -No change with valsalva. -Amyl unavailable. - Exam was compared with the prior CC (INTRAOP) echocardiographic exam performed on 08/16/2023. Similar LVOT gradients. * * * Final * * * Last EKG Result Conclusion EKG Collected: 11/18/2023 1:33 PM (Preliminary result) Impression: NORMAL SINUS RHYTHM LEFT AXIS DEVIATION LEFT BUNDLE BRANCH BLOCK ABNORMAL ECG Last CT Result Conclusion CTA CHEST (GATED) WO/W IVCON Exam End: 04/05/2023 9:32 AM (Final result) Impression: IMPRESSION: 1. Severe aortic valve stenosis. Details of anatomy and Measurements are described below. 2. Normal thoracic and abdominal aorta. No acute aortic pathology. 3. The pelvic arteries, including the common femoral arteries are normal in course, caliber, and contour , severe calcification of the pelvic arteries. The minimal luminal caliber throughout = 0.8 cm. 4. Aortic valve orifice area = 0.8 cm2 , Aortic valve calcium score is 1681 and Aortic annulus cross-sectional area: 5.71 cm2. 5. Noncardiovascular findings as described in body of the report. Drying Can Worker: PSCB Transcribe Date/Time: Apr 08 2023 10:26A Dictated by : ANDERSON PACE MD This examination was interpreted and the report reviewed and electronically signed by: ANDERSON PACE MD on Apr 09 2023 8:59AM EST Last MRI Result Conclusion MRI CARDIAC VELOCITY FLOW MAP Exam End: 06/27/2023 1:09 PM (Final result) Impression: IMPRESSION: - The left ventricle is normal in size (LV EDVi = 70 ml/m ). The left ventricular systolic function is normal (LV EF = 57 %). Diastolic septal contact of the anterior mitral leaflet is seen, but there is no systolic anterior motion of the anterior mitral leaflet. Chordal systolic anterior motion is seen. Flow dephasing is noted in the left ventricular outflow tract, on phase velocity mapping sequences,suggesting left ventricular outflow tract obstruction. - The right ventricle is normal in size (RV EDVi = 65 ml/m ). The right ventricular systolic function is normal (RV EF = 61 %). - Late gadolinium enhancement (LGE) sequences indicated the presence of diffuse mid myocardial, epicardial LGE involving the septal, anterior, inferior and lateral nguyễn of the left ventricle. The LGE involves 8% of the left ventricular myocardium, and the pattern does not support a diagnosis of hypertrophic cardiomyopathy. The pattern is more suggestive of pressure overload conditions such as uncontrolled hypertension/aortic stenosis. The extracevllular volume is within normal limits at 24%, arguing against cardiac amyloidosis. - Aortic valve leaflets are moderately thickened and calcified. The aortic valve area has been measured at 1.1 cm . Findings suggest moderate aortic stenosis. Mild central aortic insufficiency is seen. Regurgitant volume = 5 cc, regurgitant fraction = 6%. - The patient has not had a prior CC cardiac MR exam for comparison. * * * Final * * * RP Drying Can Worker: SERA Transcrijohnathon Date/Time: Jun 27 2023 11:17A Dictated by : VICENTE MOSS MD This examination was interpreted and the report reviewed and electronically signed by: VICENTE MOSS MD on Jun 27 2023 10:54PM EST There were no tests performed for review. I personally interviewed, confirmed and edited the above information if obtained by others. Conclusion: (G44.019) Episodic cluster headache, not intractable (primary encounter diagnosis) Comment: will check echo to ensure post op no changes Plan: echo (R06.02) SOB (shortness of breath) Comment: re check echo post op surgery 07/2023 Plan: ECHO (I10) Essential hypertension Comment: stable here Plan: no change in meds. (I25.10) Coronary artery disease involving [place] coronary artery of [place] heart without angina pectoris Comment: recent heart cath prior to valve, myomectomy with mild disease LCX and RCA and patent stent. Plan: no change in meds. (I42.1) HOCM (hypertrophic obstructive cardiomyopathy) (HCC) Comment: recent myomectomy. Feels worse since surgery. Plan: continue same meds for now (Z95.2) S/P AVR Comment: appears stable Plan: will check echo PLAN AND RECOMMENDATIONS: Echocardiogram Follow up with me in 2 months. Same medications. CONTACT INFORMATION: Antoinette Alicea APRN.ANNIE Cardiology Nurse Practitioner Section of [facility] Cardiology [facility] Dept of Cardiovascular Medicine [facility] [place] [address] [place] [address] Office Office documented in this encounter [facility] 12-21-2023 Telephone encounter Note Appeal started and faxed over. Fernanda Johnson LPN [facility] 12-20-2023 Telephone encounter Note PA has been denied, please see denial letter attached in medication list. Denial states medication is only approved for use with preventative treatment of migraines in adults. Diagnosis in chart is thunderclap headache and cluster headache. Please advise, thank you. GERA Islas [facility] 12-19-2023 History of Present illness Narrative Radiology Service Progress Note PATIENT NAME: Erik Clarke DATE OF SERVICE: December 19, 2023 TIME: 7:21 AM PATIENT IDENTITY VERIFICATION COMPLETED USING TWO (2) IDENTIFIERS: Name and Date of confirmed by patient verbally. FALL SCREENING: Has the patient had 2 falls in the last year or 1 fall with injury or currently using an Ambulatory Assistive Device (Walker, Cane, Wheelchair, Crutches, etc.)? No PATIENT GENDER DATA: Male PATIENT RELEVANT IMPLANT DATA REVIEWED: Yes PATIENT PRESENTS WITH AN IMPLANTABLE OR ATTACHED GARAGE ATTENDANT: No RADIOLOGY DEPARTMENT: MR; Exam(s) Completed: Head: Routine Brain PERIPHERAL IV DATA: Not applicable SIGNED BY: PARDEEP Dimas December 19, 2023 7:21 AM documented in this encounter [facility] 12-19-2023 Note HNO ID: [id number] Author: RADHA MORGAN CT Service: Radiology Author Type: International Logistics Manager Type: Progress Notes Filed: 12/19/2023 07:21 Note Text: Radiology Service Progress Note PATIENT NAME: Erik Clarke DATE OF SERVICE: December 19, 2023 TIME: 7:21 AM PATIENT IDENTITY VERIFICATION COMPLETED USING TWO (2) IDENTIFIERS: Name and Date of confirmed by patient verbally. FALL SCREENING: Has the patient had 2 falls in the last year or 1 fall with injury or currently using an Ambulatory Assistive Device (Walker, Cane, Wheelchair, Crutches, etc.)? No PATIENT GENDER DATA: Male PATIENT RELEVANT IMPLANT DATA REVIEWED: Yes PATIENT PRESENTS WITH AN IMPLANTABLE OR ATTACHED GARAGE ATTENDANT: No RADIOLOGY DEPARTMENT: MR; Exam(s) Completed: Head: Routine Brain PERIPHERAL IV DATA: Not applicable SIGNED BY: PARDEEP Dimas December 19, 2023 7:21 AM [facility] 12-18-2023 Telephone encounter Note Questions answered via [employer]. Fernanda Johnson LPN [facility] 12-14-2023 Telephone encounter Note Called [employer] and informed: Patient is not hypoxic, this would be for intermittent use for cluster headaches. Per provider. They took note of this diagnosis and will let us know if they have any other questions. [facility] 12-14-2023 Miscellaneous Notes Called [employer] and informed: Patient is not hypoxic, this would be for intermittent use for cluster headaches. Per provider. They took note of this diagnosis and will let us know if they have any other questions. [employer] called in regards to the fax they received for the patient to begin at home oxygen use. They requested that the patient receive a blood gas study in order for them to supply the oxygen. Call back [phone] fax . Please advise. documented in this encounter [facility] 12-13-2023 Telephone encounter Note [employer] called in regards to the fax they received for the patient to begin at home oxygen use. They requested that the patient receive a blood gas study in order for them to supply the oxygen. Call back fax . Please advise. [facility] 12-13-2023 Telephone encounter Note PA request not yet received at this time. GERA Islas [facility] 12-13-2023 Telephone encounter Note Will try emgality. Will need a prior auth before approved. Inject three 100ml syringes every month for as long as headaches persist. [facility] 12-13-2023 Telephone encounter Note Spoke to patient, verified name and date of . Advised patient of message below, advised scheduling team will reach out to him to schedule an appointment. Regarding headaches patient would like to try the Emgality as recommended by , pharmacy was verified. Amanda Pierce LPN December 13, 2023 10:58 AM [facility] 12-13-2023 Telephone encounter Note Spoke with patient's vp analysis who recommended patient see an inspector receiving with the recent changes seen at cardiac rehab. I have placed a consult for this. For headaches, if he is still having headaches, please let me know. We can try another medication called emgality for cluster headaches. [facility] 12-12-2023 Telephone encounter Note Scan on 12/12/2023 12:14 PM by Cecy Garcia: [facility] (Strips scanned into pt chart) Reviewed strips with Dr. Barron Per Dr. Barron; stop Verapamil, consult EP. Will notify FRANK Galarza and reach out to EP offices for openings. Reviewed recommendations with pt and Candi at [facility]. Educated pt if he becomes symptomatic to have someone take him to ER for evaluation. Pt agreed. [facility] 12-12-2023 Miscellaneous Notes Scan on 12/12/2023 12:14 PM by Cecy Garcia: [facility] (Strips scanned into pt chart) Reviewed strips with Dr. Barron Per Dr. Barron; stop Verapamil, consult EP. Will notify FRANK Galarza and reach out to EP offices for openings. Reviewed recommendations with pt and Candi at [facility]. Educated pt if he becomes symptomatic to have someone take him to ER for evaluation. Pt agreed. Candi [phone] from [facility] reporting pt heart monitor this morning showing new pauses and 1 degree AV block. Pt was started on Verapamil 80mg TID last by FRANK Galarza from Neurology, for cluster headaches as well as HS oxygen also prescribed. BP 120/60, HR 50-80's. (Normally 80-100 at Rehab) Pt asymptomatic. Spoke to Candi, asked for heart rhythm to be faxed for assessment. Candi stated she has also reached out to Neurology office. documented in this encounter [facility] 12-12-2023 Telephone encounter Note Pharmacy verified in [facility] Patient has been identified by name and date of : Yes Patient aware RX will be sent to pharmacy. No need to notify patient. Pharmacy phones for refill(s): Requested Prescriptions Pending Prescriptions Disp Refills rosuvastatin (CRESTOR) 10 mg tablet [Pharmacy Med Name: ROSUVASTATIN TAB 10MG] 90 tablet 3 Sig: take 1 tablet once daily Date of last office visit : 12/06/2023 Date of next office visit : 06/05/2024 Last 2 Encounter Wt Readings: Date: Wt: 12/06/2023 87.3 kg (192 lb 7.4 oz) 11/30/2023 86.2 kg (190 lb 0.6 oz) Please advise. Ruth Isaac MA [facility] 12-12-2023 Miscellaneous Notes Pharmacy verified in [facility] Patient has been identified by name and date of : Yes Patient aware RX will be sent to pharmacy. No need to notify patient. Pharmacy phones for refill(s): Requested Prescriptions Pending Prescriptions Disp Refills rosuvastatin (CRESTOR) 10 mg tablet [Pharmacy Med Name: ROSUVASTATIN TAB 10MG] 90 tablet 3 Sig: take 1 tablet once daily Date of last office visit : 12/06/2023 Date of next office visit : 06/05/2024 Last 2 Encounter Wt Readings: Date: Wt: 12/06/2023 87.3 kg (192 lb 7.4 oz) 11/30/2023 86.2 kg (190 lb 0.6 oz) Please advise. Ruth Isaac MA documented in this encounter [facility] 12-12-2023 Telephone encounter Note Candi [phone] from [facility] reporting pt heart monitor this morning showing new pauses and 1 degree AV block. Pt was started on Verapamil 80mg TID last by FRANK Galarza from Neurology, for cluster headaches as well as HS oxygen also prescribed. BP 120/60, HR 50-80's. (Normally 80-100 at Rehab) Pt asymptomatic. Spoke to Candi, asked for heart rhythm to be faxed for assessment. Candi stated she has also reached out to Neurology office. [facility] 12-12-2023 Telephone encounter Note Candi with [facility] calling regarding patient with a message for FRANK Galarza. Candi reports patient is there for rehab now and has a heart monitor on. Reports patient's heart rhythm is showing marked sinus arrhythmia with periods of pauses, which is new for patient. EKG completed as well. Pt asymptomatic and no lightheadedness. Candi wanted to update Ca Peterson, as Ca ordered Verapamil for patient recently. Pt's BP is 120/60. Please call patient if Ca has further recommendation or orders. Chana Spears RN [facility] 12-06-2023 Instructions Denis Rivero MD - 12/06/2023 7:21 AM EDT Continue current medications Try start the verapamil if you are able to get it Keep follow up with specialists Follow up in 6 months documented in this encounter [facility] 12-06-2023 History of Present illness Narrative Erik Clarke is a 68 year old male presenting for follow up HTN/HOCM/ The blood pressure has been running higher usually He has no CP They have been trying to adjust the medications MORGAN: Neuro Had MRI ordered Order for O2 at home but was not approved He did get some home cans He has not needed though Has not had a horrible headache recently Mainly in the front and then over to the right eye DM: The bg's are runnig in the 140's usually Has been following with pharm D He has been doing the manjarao and metformin HISTORIES: PAST MEDICAL HISTORY 01/22/2012: BPH (benign prostatic hypertrophy) with urinary retention No date: Bradycardia 05/30/2019: Coronary artery disease involving [place] coronary artery of [place] heart without angina pectoris Comment: History: s/p CATRACHITA. On Brilinta No date: ED (erectile dysfunction) 05/15/2023: HOCM (hypertrophic obstructive cardiomyopathy) (HCC) Comment: History: HOCM 01/22/2012: Hyperlipidemia LDL goal < 100 01/22/2012: Hypertension 05/30/2019: Nonrheumatic aortic (valve) stenosis Comment: History: Severe No date: Obesity 09/18/2023: S/P AVR 09/18/2023: S/P myomectomy 08/28/2022: Status post insertion of drug eluting coronary artery stent 01/22/2012: Type 2 diabetes mellitus not at goal PAST SURGICAL HISTORY 1999, 2004: CARDIAC CATHETERIZATION HX Comment: no blockages, mildly leaky valve 06/2022: LEFT HEART CATH,PERCUTANEOUS Comment: stent placed 12/2015: PAST SURGICAL HISTORY OF Comment: L3-S1 laminectomy, decompression 01/16/2017: PAST SURGICAL HISTORY OF Comment: Lumbar reexploration L3-S1 with laminectomy and decompression FAMILY HISTORY Problem Relation Age of Onset Diabetes Mother Heart Father Diabetes Father Social History: Social History Tobacco Use Smoking status: Former Types: Cigarettes Quit date: 01/21/2010 Years since quittin.8 Smokeless tobacco: Current Types: Chew Tobacco comments: Patient states he has been chewing since he was younger - about a half can. Patient states it is the pouch type. Vaping Use Vaping Use: Never used Substance Use Topics Alcohol use: No Drug use: No Allergies: ALLERGIES No Known Allergies Medications: iv contrast (will be provided with radiology test) MRA Carotid WO/W Inject, intravenously, once for 1 dose. No IV access, insert saline lock prior to the beginning of sedation, infusion, injection of imaging exam. Discontinue saline lock post exam. If Pt. has a central line or IVAD, may access for administration according to line specific nursing protocol. Once exam is complete flush line and de-access according to line specific nursing protocol in the MR contrast administration guidelines link. chlorthalidone (HYGROTON) 25 mg tablet Take 0.5 tablets by mouth once daily. carvedilol (COREG) 25 mg tablet Take 1 tablet by mouth two times a day. lisinopril (ZESTRIL) 40 mg tablet Take 1 tablet by mouth once daily. potassium chloride ER (KLOR-CON) 20 mEq tablet Take 1 tablet by mouth once daily. Lancets Use as instructed to check blood sugar twice daily blood sugar diagnostic (BLOOD GLUCOSE TEST) test strip Use as instructed to check blood sugar twice daily insulin glargine U-300 conc (TOUJEO SOLOSTAR U-300 INSULIN) 300 unit/mL (1.5 mL) Inject 35 Units subcutaneously once daily. Blood-Glucose Meter Use to check blood sugar 2 times per day tirzepatide (MOUNJARO) 7.5 mg/0.5 mL pen injector Inject 7.5 mg subcutaneously one time a week. Blood-Glucose Sensor (DEXCOM G7 SENSOR) yesenia APPLY NEW SENSOR EVERY 10 DAYS tamsulosin (FLOMAX) 0.4 mg Take 1 capsule by mouth once daily. BRILINTA 90 mg tablet take 1 tablet twice a day metFORMIN ER (GLUCOPHAGE XR) 500 mg 24 hr tablet TAKE 2 TABLETS 2 TIMES DAILY WITH MEALS BD ULTRAFINE III MINI PEN 31 gauge x 3/16 USE AND DISCARD 1 PEN NEEDLE ONCE DAILY WITH INSULIN PEN Blood Pressure Monitor Use to monitor blood pressure empagliflozin (JARDIANCE) 10 mg tablet Take 1 tablet by mouth daily with breakfast. Blood-Glucose Meter,Continuous (DEXCOM G7 GENERATOR ASSEMBLER) [facility] Use continuously to monitor glucose, IDDM, E 11.2998 rosuvastatin (CRESTOR) 10 mg tablet TAKE 1 TABLET ONCE DAILY aspirin, enteric coated (ECOTRIN LOW STRENGTH) 81 mg EC tablet Take 1 tablet by mouth once daily. verapamil 80 mg tablet Take 1 tablet by mouth three times a day. REVIEW OF SYSTEMS See HPI PHYSICAL EXAMINATION: BP 124/76 Pulse 86 Temp 36.4 C (97.5 F) (Temporal) Ht 172.7 cm (5' 7.99) Wt 87.3 kg (192 lb 7.4 oz) SpO2 97% BMI 29.27 kg/m General Appearance: Well appearing, alert, in no acute distress, well-hydrated, well nourished.. Lungs: Lungs clear to auscultation. No wheezing, rhonchi, rales.. Heart: RRR without murmur, gallop, or rubs. No ectopy. Extremities: No deformities, edema, skin discoloration, clubbing or cyanosis. Good capillary refill. . Peripheral Pulses: Normal. ASSESSMENT/PLAN: 1. Type 2 diabetes mellitus with both eyes affected 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, with long-term current use of insulin ([facility]) - ICD9: 250.50, 362.04, V58.67, ICD10: E11.3293, Z79.4 (primary diagnosis) \] Patient reports blood sugars are averaging about 140 Has been doing the Mounjaro with no issues or side effects Continues with the metformin as well Does try to watch his diet is much as possible Hemoglobin A1C (%) Date Value 08/15/2023 7.5 11/14/2022 7.7 07/03/2022 7.8 05/12/2022 7.8 06/09/2021 7.8 04/05/2020 9.1 03/14/2019 8.4 08/24/2018 8.0 02/25/2018 8.7 08/24/2017 8.4 Hemoglobin A1C (POCT) (%) Date Value 12/13/2021 7.9 11/03/2019 9.0 2. Essential hypertension - ICD9: 401.9, ICD10: I10 3. Mixed hyperlipidemia - ICD9: 272.2, ICD10: E78.2 4. Coronary artery disease involving [place] coronary artery of [place] heart without angina pectoris - ICD9: 414.01, ICD10: I25.10 5. HOCM (hypertrophic obstructive cardiomyopathy) (HCC) - ICD9: 425.11, ICD10: I42.1 6. S/P AVR - ICD9: V43.3, ICD10: Z95.2 7. Nonrheumatic aortic (valve) stenosis - ICD9: 424.1, ICD10: I35.0 Continue following with cardiology as well as with Pharm.D. Blood pressure today is actually doing very well Will like to see what it does once he starts the verapamil He will continue monitoring regularly Follow-up here in 6 months 8. Intractable episodic cluster headache - ICD9: 339.01, ICD10: G44.011 Follow with neurology Is scheduled for MRI and MRA Was not able to get the verapamil filled Prescription was printed off for him to take to other pharmacy that may have it He will need to follow-up with neurology Did get some canned oxygen [id number]-esoyysa at the drugstore Will inquire with neurology about home oxygen Has not gotten a horrible headache recently 9. Screening for depression - ICD9: V79.0, ICD10: Z13.31 - DEPRESSION SCREENING 10. Encounter for screening examination for other mental health and behavioral disorders - ICD9: V79.8, ICD10: Z13.39 - ANXIETY SCREENING Denis Rivero MD Advance directives paperwork was given to patient today documented in this encounter [facility] 12-05-2023 Telephone encounter Note TC to pt who would like to know if he can come off another medication and replace it with this one. Fernanda Johnson LPN [facility] 12-05-2023 Miscellaneous Notes TC to pt who would like to know if he can come off another medication and replace it with this one. Fernanda Johnson LPN Addended by: CA PETERSON on: 12/05/2023 10:28 AM Modules accepted: Orders We can start patient on verpamil 80mg three times daily for cluster headaches. Have okayed this with cardiology. Have him keep an eye on his blood pressure and reach out if he feels any light headedness. Images from the original note were not included. Burke Barron DO Queener, Melanie, PA-C; [facility] Blood pressure is on the high side and normal. I would simply just start the verapamil and see what the blood pressure does. Thank so much for reaching out. ------- Alexis Barron, I saw Erik Clarke in the office today for headaches. These headaches are consistent with cluster headaches, I see that he is already on two antihypertensives and wanted to reach out about starting verapamil. I did not start the patient on this yet, as I wanted to see if we could perhaps substitute this with on of his current medications. I look forward to hearing from you. Thank you. Ca Peterson PA-C 11/30/23 Ca Peterson PA-C Will reach out to cardiology about possibly starting verapamil as patient is on 2 antihypertensives at this time. For abortive relief, cannot start Imitrex due to CAD history. Discussed oxygen therapy and will write for this today. She does not be beneficial, may consider intranasal lidocaine. documented in this encounter [facility] 12-05-2023 Note Addended by: CA PETERSON on: 12/05/2023 10:28 AM Modules accepted: Orders [facility] 12-05-2023 Telephone encounter Note We can start patient on verpamil 80mg three times daily for cluster headaches. Have okayed this with cardiology. Have him keep an eye on his blood pressure and reach out if he feels any light headedness. [facility] 12-05-2023 Telephone encounter Note Images from the original note were not included. Burke Barron DO Queener, Melanie, PA-C; [facility] Nurse Pool Blood pressure is on the high side and normal. I would simply just start the verapamil and see what the blood pressure does. Thank so much for reaching out. ------- Alexis Barron, I saw Erik Clarke in the office today for headaches. These headaches are consistent with cluster headaches, I see that he is already on two antihypertensives and wanted to reach out about starting verapamil. I did not start the patient on this yet, as I wanted to see if we could perhaps substitute this with on of his current medications. I look forward to hearing from you. Thank you. Ca Peterson PA-C 11/30/23 Ca Peterson PA-C Will reach out to cardiology about possibly starting verapamil as patient is on 2 antihypertensives at this time. For abortive relief, cannot start Imitrex due to CAD history. Discussed oxygen therapy and will write for this today. She does not be beneficial, may consider intranasal lidocaine. [facility] 12-04-2023 Telephone encounter Note [facility] received an order for oxygen therapy. Unfortunately, the patient resides out of service area and we are unable to provide. Please send the referral to an alternate provider. Thank you, [facility] [phone] fax [facility] 12-04-2023 Miscellaneous Notes [facility] home [facility] received an order for oxygen therapy. Unfortunately, the patient resides out of service area and we are unable to provide. Please send the referral to an alternate provider. Thank you, [facility] [phone] fax documented in this encounter [facility] 12-04-2023 Telephone encounter Note Reviewed BMP results. BMP shows continued hypokalemia, since initiation of chlorthalidone, despite potassium supplementation prescribed after 11/14 labs. Would recommend discontinuation of chlorthalidone and initiation of alternative antihypertensive, such as spironolactone. Patient currently on max doses of lisinopril and carvedilol. Avoiding use of calcium channel blockers d/t history of HOCM. Called and spoke with patient. Patient states his BP has been coming down recently; however, still experiencing headaches occasionally. Reports BP after cardiac rehab around 120s/80s, 140s/80s before rehab occasionally. Recently saw neurologist with plans for follow up MRI in coming weeks. Confirmed he started the chlorthalidone since last visit; however, states he never took the potassium supplement that was prescribed at last ED visit when initial hypokalemia noted. Patient also states he was previously eating more bananas in his diet but has not most recently, and would like to try incorporating that into diet as well. Patient to complete potassium supplement as previously prescribed while continuing chlorthalidone for now. Will repeat BMP in 1 week and will follow up with patient at that time. Patient scheduled with PCP on 12/06/23. Ophelia Null PharmD, [facility] Primary [facility] Clinical Industrial Hygiene Manager [facility] 12-04-2023 Miscellaneous Notes Reviewed BMP results. BMP shows continued hypokalemia, since initiation of chlorthalidone, despite potassium supplementation prescribed after 11/14 labs. Would recommend discontinuation of chlorthalidone and initiation of alternative antihypertensive, such as spironolactone. Patient currently on max doses of lisinopril and carvedilol. Avoiding use of calcium channel blockers d/t history of HOCM. Called and spoke with patient. Patient states his BP has been coming down recently; however, still experiencing headaches occasionally. Reports BP after cardiac rehab around 120s/80s, 140s/80s before rehab occasionally. Recently saw neurologist with plans for follow up MRI in coming weeks. Confirmed he started the chlorthalidone since last visit; however, states he never took the potassium supplement that was prescribed at last ED visit when initial hypokalemia noted. Patient also states he was previously eating more bananas in his diet but has not most recently, and would like to try incorporating that into diet as well. Patient to complete potassium supplement as previously prescribed while continuing chlorthalidone for now. Will repeat BMP in 1 week and will follow up with patient at that time. Patient scheduled with PCP on 12/06/23. Ophelia Null PharmD, [facility] Primary Care Clinical Industrial Hygiene Manager documented in this encounter [facility] 11-30-2023 Instructions Ca Peterson PA-C - 11/30/2023 3:39 PM EDT MRI of the brain and MRA head and neck Will reach out to your vp analysis about starting another blood pressure medication for these headaches Will try and get oxygen therapy approved (in the meantime try boost oxygen at the store) Follow up in three months documented in this encounter [facility] 11-30-2023 History of Present illness Narrative Images from the original note were not included. Neurology Outpatient Clinic Date: November 30, 2023 Patient Name: Erik Clarke Referring physician: Trang Franco [address] [facility] [address] Consult requested for headaches by Dr. Franco. Recommendations will be communicated via shared medical record or US mail. Primary physician: Denis Rivero [address] [place] [address] Reason for Evaluation: Headaches Subjective HPI Erik Clarke is a 68 year old right-handed male who presents for evaluation of headache. Dr. Franco is the referring physician. Dr. Denis Rivero MD is the PCP. Chart review: Seen on 11/18/23 in the ER and 11/15/23 for headache. Patient presents for severe right head sided headache. Patient had headache that started in the center of his head and now has moved right. Patient had a headache similar to this a few days ago and was seen at the emergency department with unremarkable workup other than having hypertension. Patient's symptoms returned today. He is having mild photophobia. No nausea or vomiting. Head CT normal. BP improved with labetalol Patient presents with for evaluation of headache. Patient notes that 1 month ago he began experiencing sharp shooting pain to the forehead, in the middle of it for the right of the head lasting for about an hour. Occurring every other day on average, some more severe than others but overall very severe and sudden onset. Did go to the emergency department twice, CT the brain negative x 2. Notes he was given Benadryl, labetalol and droperidol IV with resolution of his headache. They were concerned that his blood pressure was the etiology of his headache. Notes ever since his last emergency room visit on 11-18-2023 he has been taking Aleve every day to help with the headaches. Headaches typically start with a few minutes of aching sensation to the forehead and then quickly exacerbate to a stabbing ice pick sensation. Associated with lacrimation on the right eye. No triggers that he can think of. No migrainous features. No onset with Valsalva, position change or exertion. Does have history of tobacco use. Did see his eye doctor with a dilated exam that was normal. Does note that ice and heat seem to help with the pain but does not take it away. Current Headache treatment Preventative: none Abortive: Aleve Medications effective? no # of doses of abortive medications per month: 10 Previous imaging: CT brain 11/18/23 IMPRESSION: No CT evidence of acute intracranial abnormality. Previous Medications: Coreg Lisinopril ASA Headache Description Onset: One month Total headache days per month: 15 per month Total headache attacks per month: 15 per month Headache free days: Yes Duration of attacks: one hour Severity of headaches? severe Onset to Peak: sudden and severe Location: middle and on the right side last night. Aura: None Prodrome:aching sensation I the forehead . Accompanying symptoms: lacrimation. Quality:piercing/stabbing. Worse with activity: No Triggers: none. Cough/sneeze/valsalva as trigger: no Positional changes: No Most common time of day for headache to begin:afternoon and evening Risk Factors Visual-Motion sensitivity: No Tobacco Use: Yes, quit 10 years ago, still chew Alcohol Use: No Other substances: No Caffeine: Yes, coffee in the morning Neck Pain /Back Pain: No Fibromyalgia: No History of Motor Vehicle Accident: No History of Traumatic Brain Injury and/or Concussion: No History of severe infection: No History of Syncope: No Obesity: No, Body mass index is 29 Family History Migraine or other headaches in the family: No Aneurysms in a first degree relative: No Brain tumors in the family: Yes, brother with tumor (unsure what time) Other neurological illness in the family: no ROS Review of Systems CONSTITUTIONAL: No reported fevers, chills, night sweats, or significant unintentional weight loss. EYES: No visual changes indicated. No eye pain or orbital swelling reported. HEENT: No hearing changes or vertiginous symptoms indicated. No history of nose bleeds reported. RESPIRATORY: No reported cough, wheezing and dyspnea. CARDIOVASCULAR: Negative for significant chest pain , and palpitations per report. GI: Negative for significant abdominal discomfort , blood in stools or black stools reported. No recent reported change in bowel habits. : No reported history of incontinence. No dark/cola colored urine reported. MUSCLOSKELETAL: No history of significant joint pain or swelling, or myalgias reported. SKIN: Negative for pertinent lesions, rash, and itching per report. HEMATOLOGY/ONCOLOGY: Negative for reported prolonged bleeding, bruising easily, and swollen nodes. ENDOCRINE: Negative for reported significant cold or heat intolerance, no reported goitrous neck swelling or polydipsia PSYCH: No reported depression or anxiety symptoms . No reported SI or HI. NEURO: Per HPI above. Sleep: Normal sleep pattern, Medications: Current Outpatient Medications Medication Sig Dispense Refill chlorthalidone (HYGROTON) 25 mg tablet Take 0.5 tablets by mouth once daily. 45 tablet 1 carvedilol (COREG) 25 mg tablet Take 1 tablet by mouth two times a day. 90 tablet 3 lisinopril (ZESTRIL) 40 mg tablet Take 1 tablet by mouth once daily. 90 tablet 3 potassium chloride ER (KLOR-CON) 20 mEq tablet Take 1 tablet by mouth once daily. 5 tablet 0 Lancets Use as instructed to check blood sugar twice daily 200 Each 3 blood sugar diagnostic (BLOOD GLUCOSE TEST) test strip Use as instructed to check blood sugar twice daily 200 Each 3 insulin glargine U-300 conc (TOUJEO SOLOSTAR U-300 INSULIN) 300 unit/mL (1.5 mL) Inject 35 Units subcutaneously once daily. Blood-Glucose Meter Use to check blood sugar 2 times per day 1 Each 0 tirzepatide (MOUNJARO) 7.5 mg/0.5 mL pen injector Inject 7.5 mg subcutaneously one time a week. 6 mL 1 Blood-Glucose Sensor (DEXCOM G7 SENSOR) yesenia APPLY NEW SENSOR EVERY 10 DAYS 9 Each 3 tamsulosin (FLOMAX) 0.4 mg Take 1 capsule by mouth once daily. 90 capsule 1 BRILINTA 90 mg tablet take 1 tablet twice a day 180 tablet 3 metFORMIN ER (GLUCOPHAGE XR) 500 mg 24 hr tablet TAKE 2 TABLETS 2 TIMES DAILY WITH MEALS 360 tablet 3 BD ULTRAFINE III MINI PEN 31 gauge x 3/16 USE AND DISCARD 1 PEN NEEDLE ONCE DAILY WITH INSULIN PEN 90 Each 3 Blood Pressure Monitor Use to monitor blood pressure 1 Each 0 empagliflozin (JARDIANCE) 10 mg tablet Take 1 tablet by mouth daily with breakfast. 90 tablet 3 Blood-Glucose Meter,Continuous (DEXCOM G7 GENERATOR ASSEMBLER) [facility] continuously to monitor glucose, IDDM, E 11.3293 rosuvastatin (CRESTOR) 10 mg tablet TAKE 1 TABLET ONCE DAILY 90 tablet 3 aspirin, enteric coated (ECOTRIN LOW STRENGTH) 81 mg EC tablet Take 1 tablet by mouth once daily. iv contrast (will be provided with radiology test) MRA Carotid WO/W Inject, intravenously, once for 1 dose. No IV access, insert saline lock prior to the beginning of sedation, infusion, injection of imaging exam. Discontinue saline lock post exam. If Pt. has a central line or IVAD, may access for administration according to line specific nursing protocol. Once exam is complete flush line and de-access according to line specific nursing protocol in the MR contrast administration guidelines link. 1 Each 0 No current facility-administered medications for this visit. ROS: His ROS was positive for that mentioned in the HPI. Otherwise a 10-point ROS was completed and was negative. ALLERGIES No Known Allergies Past Medical History: PAST MEDICAL HISTORY 01/22/2012: BPH (benign prostatic hypertrophy) with urinary retention No date: Bradycardia 05/30/2019: Coronary artery disease involving [place] coronary artery of [place] heart without angina pectoris Comment: History: s/p CATRACHITA. On Brilinta No date: ED (erectile dysfunction) 05/15/2023: HOCM (hypertrophic obstructive cardiomyopathy) (HCC) Comment: History: HOCM 01/22/2012: Hyperlipidemia LDL goal < 100 01/22/2012: Hypertension 05/30/2019: Nonrheumatic aortic (valve) stenosis Comment: History: Severe No date: Obesity 09/18/2023: S/P AVR 09/18/2023: S/P myomectomy 08/28/2022: Status post insertion of drug eluting coronary artery stent 01/22/2012: Type 2 diabetes mellitus not at goal Family History: FAMILY HISTORY Problem Relation Age of Onset Diabetes Mother Heart Father Diabetes Father Also includes: . Social History: Social History Tobacco Use Smoking status: Former Types: Cigarettes Quit date: 01/21/2010 Years since quittin.8 Smokeless tobacco: Current Types: Chew Tobacco comments: Patient states he has been chewing since he was younger - about a half can. Patient states it is the pouch type. Vaping Use Vaping Use: Never used Substance Use Topics Alcohol use: No Drug use: No Objective 11/30/23 1510 BP: 144/82 BP Site: Left Arm BP Position: Sitting BP Cuff Size: Regular Adult Pulse: 83 Weight: 86.2 kg (190 lb 0.6 oz) Height: 172.7 cm (5' 8) Physical Examination General Appearance: Well appearing, alert, in no acute distress, well-hydrated, well nourished. Head: Normocephalic Pulm: Breathing comfortably Neck: Supple Psych: Cooperative, appropriate affect Neurological Examination: Mental Status: Alert and Oriented to Place, Person, Time and Situation and Patient follows commands.. Language: Is intact to Comprehension, Fluency and Repetition Cranial Nerves: CNII: Visual acuity normal, visual valdez full to confrontation CNIII, IV, : Pupils equal, round and reactive to light, full extraoccular movements, without nystagmus CN V: Facial sensation intact bilaterally to fine touch CN VII: Facial muscles symmetric and strong CN VIII: Hears finger rub well bilaterally CN IX: Gag Reflex not examined CN X: Palate elevates symmetrically CN XI: Full strength shoulder shrug bilaterally CN XII: Tongue protrusion full and midline Non-Dilated Fundiscopic Examination: No papilledema Motor Exam: Tone - Normal Tone noted in all extremities Bulk - Normal bulk noted in all muscles tested. Inspection - Normal, no fasciculations or tremors noted. Power: MUSCLES Upper Extremity RIGHT LEFT Deltoid 5/5 5/5 Biceps 5/5 5/5 Triceps 5/5 5/5 Wrist Extension 5/5 5/5 Wrist Flexion 5/5 5/5 Finger Flexion 5/5 5/5 Finger Extension 5/5 5/5 Finger Abd 5/5 5/5 Finger Add 5/5 5/5 MUSCLES Lower Extremity RIGHT LEFT Hip Flexion 5/5 5/5 Hip Extension 5/5 5/5 BiFem (Knee Flex) 5/5 5/5 Quads (Knee Ext) 5/5 5/5 Gastroc (Plantflx) 5/5 5/5 TibAnt (Dorsiflx) 5/5 5/5 FlxHLong (Toe Flex) 5/5 5/5 ExtHLong (Toe Ext) 5/5 5/5 Sensory Examination Sensation is intact to light touch. Negative extinction to double simultaneous stimulation . Reflexes Right Left Bicep 2/4 2/4 BrRad 2/4 2/4 Knee 2/4 2/4 Ankle 1/4 1/4 Liu Response Negative Negative Coordination: finger-to- nose-finger intact bilaterally and [id number] intact bilaterally. Gait: Patient's gait is normal Romberg: Negative DATA REVIEWED Actual films/image/tracing reviewed and summarized as follows: CT brain Old records reviewed and summarized as follows: ER x2 Assessment/Plan Assessment & Plan: Erik Clarke is a 68 year old right-handed male with a history of CAD, hypertension, hyperlipidemia, tobacco dependence, DM type II. His examination demonstrates no neurologic deficits. Patient with new onset headache about a month ago occurring every other day lasting for about an hour at a time, described as a sharp sudden severe pain to the forehead, mostly on the right side. Associated with lacrimation but no other associated symptoms. Went to the emergency department x [address] of the brain each time. Was given IV antiemetics and blood pressure medication with resolution of his headache. Notes that he still getting them since his last discharge from the ER on 11-18-2023. Taking Aleve without any significant benefit. Does have history of tobacco use for many years, currently chews tobacco. Does not drink any alcohol. Patient's history is consistent with possible cluster headaches, but due to thunderclap headache and new onset headache in a patient above the age of 50 will obtain MRI imaging of the brain, will also order MRA of the head and neck to look for any vessel abnormality contributing to symptoms. Will reach out to cardiology about possibly starting verapamil as patient is on 2 antihypertensives at this time. For abortive relief, cannot start Imitrex due to CAD history. Discussed oxygen therapy and will write for this today. She does not be beneficial, may consider intranasal lidocaine. Will also obtain CRP and ESR, although low suspicion for GCA at this time. Patient without any vision loss or vision changes. Patient agreeable to treatment plan of care at this time, questions were answered. Patient to follow-up in 3 months or sooner should any symptoms change or worsen. Erik was seen today for headaches. Diagnoses and all orders for this visit: Thunderclap headache - MRI BRAIN WO IVCON; Future - MRA BRAIN WO IVCON; Future - MRA CAROTID WO/W IVCON; Future Intractable episodic cluster headache Other orders - iv contrast (will be provided with radiology test); MRA Carotid WO/W Inject, intravenously, once for 1 dose. No IV access, insert saline lock prior to the beginning of sedation, infusion, injection of imaging exam. Discontinue saline lock post exam. If Pt. has a central line or IVAD, may access for administration according to line specific nursing protocol. Once exam is complete flush line and de-access according to line specific nursing protocol in the MR contrast administration guidelines link. All options for treatment discussed. Preventative: Will reach out to cardiology about verapamil Abortive: O2 Imaging:MRI and MRA head and neck Labs: CRP and ESR He should return to see me in 3 months. I spent a total of 60 minutes on the date of the service which included preparing to see the patient, [id number] patient care, completing clinical documentation, obtaining and/or reviewing separately obtained history, performing a medically appropriate examination, counseling and educating the patient/family/caregiver, and ordering medications, tests, or procedures. Ca Peterson PA-C [facility] Neurology This document has been created with the use of voice recognition technology. It may contain inaccuracies: (e.g. misspellings, inaccurate syntax or word sense) that have escaped review. documented in this encounter [facility] 11-20-2023 History of Present illness Narrative Primary Care Pharmacy Visit CC (Reason for Consult): (I10) Primary hypertension (primary encounter diagnosis) (E11.9, Z79.4) Type 2 diabetes mellitus without complication, with long-term current use of insulin ([facility]) Goal(s): A1c <7% Last Collaborating Provider Visit: 02/14/[address] Rivero Erik Coco Clarke is a 68 year old male presenting for follow up visit in person. Patient consents to pharmacy collaborative practice agreement. Last Pharmacy Visit: 10/30/23 - lisinopril started HPI: Reports he is still having issues with having headaches at home, went to the ED twice in last week States BP still has not improved, per readings checked at cardiac rehab Self-increased lisinopril a week ago to 40 mg in the morning, 5 mg in the evening. States he had 40 mg tablets at home Current HTN Meds: Lisinopril 10 mg twice daily - taking 40 mg once daily AM, 5 mg in the evening Carvedilol 25 mg twice daily Diet Denies excess sodium in diet Caffeine: Yes - had 1 cup of coffee at 6-7am today Blood pressure/Pulse/Weight Date Blood Pressure Pulse 11/18 180/100 91 11/15 150/90 81 11/13 190/100 83 11/11 180/92 81 11/08 150/90 80 11/06 152/88 83 11/04 180/90 81 11/01 156/90 Past medical history reviewed. ALLERGIES No Known Allergies Current Outpatient Medications Medication Sig Dispense Refill potassium chloride ER (KLOR-CON) 20 mEq tablet Take 1 tablet by mouth once daily. 5 tablet 0 lisinopril (ZESTRIL) 10 mg tablet Take 1 tablet by mouth two times a day. 60 tablet 2 Lancets Use as instructed to check blood sugar twice daily 200 Each 3 blood sugar diagnostic (BLOOD GLUCOSE TEST) test strip Use as instructed to check blood sugar twice daily 200 Each 3 insulin glargine U-300 conc (TOUJEO SOLOSTAR U-300 INSULIN) 300 unit/mL (1.5 mL) Inject 35 Units subcutaneously once daily. Blood-Glucose Meter Use to check blood sugar 2 times per day 1 Each 0 tirzepatide (MOUNJARO) 7.5 mg/0.5 mL pen injector Inject 7.5 mg subcutaneously one time a week. 6 mL 1 Blood-Glucose Sensor (DEXCOM G7 SENSOR) yesenia APPLY NEW SENSOR EVERY 10 DAYS 9 Each 3 tamsulosin (FLOMAX) 0.4 mg Take 1 capsule by mouth once daily. 90 capsule 1 BRILINTA 90 mg tablet take 1 tablet twice a day 180 tablet 3 metFORMIN ER (GLUCOPHAGE XR) 500 mg 24 hr tablet TAKE 2 TABLETS 2 TIMES DAILY WITH MEALS 360 tablet 3 carvedilol (COREG) 25 mg tablet Take 1 tablet by mouth two times a day. 90 tablet 3 BD ULTRAFINE III MINI PEN 31 gauge x 3/16 USE AND DISCARD 1 PEN NEEDLE ONCE DAILY WITH INSULIN PEN 90 Each 3 Blood Pressure Monitor Use to monitor blood pressure 1 Each 0 empagliflozin (JARDIANCE) 10 mg tablet Take 1 tablet by mouth daily with breakfast. 90 tablet 3 Blood-Glucose Meter,Continuous (DEXCOM G7 GENERATOR ASSEMBLER) [facility] [place] to monitor glucose, IDDM, E 11.3293 rosuvastatin (CRESTOR) 10 mg tablet TAKE 1 TABLET ONCE DAILY 90 tablet 3 aspirin, enteric coated (ECOTRIN LOW STRENGTH) 81 mg EC tablet Take 1 tablet by mouth once daily. No current facility-administered medications for this visit. Pill bottles are not present. Adherence: denies missed doses. Rx coverage: Payor: MEDICARE / Plan: MEDICARE A AND B / Product Type: Medicare / Medications affordable? Yes PHARMACOTHERAPY PREVENTATIVE MEDS: On MARY BETH/ARB: Yes On Statin: Yes On ASA: Yes EXAM: BP 173/93 (BP Site: Left Arm, BP Position: Sitting, BP Cuff Size: Regular Adult) Pulse 87 Last 3 Encounter BP Readings: Date: BP: 11/18/2023 149/81 11/15/2023 158/87 10/30/2023 179/96 Wt: 90.7 kg (200 lb) BMI: 30.41 kg/(m^2) LABS: Lab Results Component Value Date HBA1C 7.5 08/15/2023 HBA1C 7.7 11/14/2022 HBA1C 7.8 07/03/2022 HBA1C 7.9 12/13/2021 HBA1C 9.1 04/05/2020 HBA1C 9.0 11/03/2019 HBA1C 8.4 03/14/2019 HBA1C 8.0 08/24/2018 Glucose 131 11/18/2023 BUN 9 11/18/2023 Creatinine 0.53 11/18/2023 Sodium 139 11/18/2023 Potassium 3.5 11/18/2023 Chloride 103 11/18/2023 CO2 23 11/18/2023 Protein, Total 7.6 11/18/2023 Albumin 4.5 11/18/2023 Calcium 9.4 11/18/2023 Alkaline Phosphatase 52 11/18/2023 Bilirubin, Total 1.6 11/18/2023 AST 19 11/18/2023 ALT 18 11/18/2023 Lab Results Component Value Date CHOL 107 05/12/2022 CHOL 146 04/05/2020 LDL 41 05/12/2022 LDL 53 04/05/2020 HDL 29 05/12/2022 HDL 31 04/05/2020 TG 187 05/12/2022 TG 310 04/05/2020 Albumin/Creat Ratio (mg/g) Date Value 05/12/2022 <21 eGFR-All Other Races Date Value 06/09/2021 >60 04/05/2020 >60 . Estimated Glomerular Filtration Rate (mL/min/1.73m ) Date Value 11/18/2023 108 ASSESSMENT/PLAN: 1. Primary hypertension - ICD9: 401.9, ICD10: I10 (primary diagnosis) - Uncontrolled - BP remains above goal <130/80. Patient self-increased lisinopril; now at max daily dose. Patient previously on chlorthalidone; will restart at low dose and monitor K+ closely. - Start chlorthalidone 12.5 mg once daily - Continue lisinopril 40 mg once daily (sent updated Rx to pharmacy/updated med list) - Continue carvedilol 25 mg twice daily - Due for BMP in 2 weeks - Recommend home blood pressure monitoring, to bring results to next visit - Encouraged sodium restriction, DASH or Mediterranean diet - Recommend regular aerobic exercise Follow Up: Next PCP visit: 12/06/23 Next PharmD visit: 01/01/24 Ophelia Null, ChasidyD, BCACP Primary Care Clinical Industrial Hygiene Manager I spent a total of 30 minutes on the date of the service which included preparing to see the patient, [id number] patient care, completing clinical documentation, counseling and educating the patient/family/caregiver, and ordering medications, tests, or procedures. documented in this encounter [facility] 11-20-2023 Instructions Ophelia Null RPh - 11/20/2023 9:30 AM EDT Get labwork done in 2 weeks Take the following for blood pressure: Lisinopril 40 mg once daily Carvedilol 25 mg twice daily Chlorthalidone 25 mg - half tablet once daily documented in this encounter [facility] 11-19-2023 History of Present illness Narrative QOL Call Tracking Documentation Follow-Up Type: Phone Call Call Attempt: 1st Attempt Call Status: Patient will complete in MyChart (Will complete remaining questionnaire in MyChart) documented in this encounter [facility] 11-18-2023 Note HNO ID: [id number] Author: MILEY ALBRIGHT RT(R) Service: Radiology Author Type: Technologist Type: Progress Notes Filed: 11/18/2023 14:38 Note Text: Radiology Service Progress Note PATIENT NAME: Erik Clarke DATE OF SERVICE: November 18, 2023 TIME: 2:38 PM PATIENT IDENTITY VERIFICATION COMPLETED USING TWO (2) IDENTIFIERS: Name and Date of confirmed by patient verbally. FALL SCREENING: Has the patient had 2 falls in the last year or 1 fall with injury or currently using an Ambulatory Assistive Device (Walker, Cane, Wheelchair, Crutches, etc.)? Emergency Room Patient: Screened in ED PATIENT GENDER DATA: Male PATIENT RELEVANT IMPLANT DATA REVIEWED: Yes PATIENT PRESENTS WITH AN IMPLANTABLE OR ATTACHED GARAGE ATTENDANT: No RADIOLOGY DEPARTMENT: CT; Exam(s) Completed: Brain PERIPHERAL IV DATA: Not applicable SIGNED BY: RT Karmen(R) November 18, 2023 2:38 PM [facility] 2023 Telephone encounter Note Patient called and LMOM for PharmD regarding continued elevated BP readings. Called and spoke with patient. States BP at cardiac rehab have still been elevated with SBP in the 180s. Confirmed restarting lisinopril after last PharmD visit. States he then self-increased to 5 mg twice daily (10 mg/day). Recommend to increase lisinopril to 20 mg/day - advised to take 10 mg twice daily. Counseled on alarm symptoms and advised to seek emergency care if continued elevated BP readings with any CP, SOB or headache. Patient scheduled for PharmD f/up on 11/20/23. Ophelia Null, Margarita, BCACP Primary Care Clinical Industrial Hygiene Manager [facility] Work Phone: [phone] Miscellaneous Notes Patient called and LMOM for PharmD regarding continued elevated BP readings. Called and spoke with patient. States BP at cardiac rehab have still been elevated with SBP in the 180s. Confirmed restarting lisinopril after last PharmD visit. States he then self-increased to 5 mg twice daily (10 mg/day). Recommend to increase lisinopril to 20 mg/day - advised to take 10 mg twice daily. Counseled on alarm symptoms and advised to seek emergency care if continued elevated BP readings with any CP, SOB or headache. Patient scheduled for PharmD f/up on 11/20/23. Ophelia Null PharmD, BCACP Primary Care Clinical Industrial Hygiene Manager documented in this encounter [facility] 10-30-2023 Telephone encounter Note New prescription was sent in with correct directions for the glucometer [facility] 10-30-2023 Miscellaneous Notes New prescription was sent in with correct directions for the glucometer Pharmacy verified in [employer]. Patient has been identified by name and date of : Yes Patient aware RX will be sent to pharmacy. No need to notify patient. Pharmacy phones for refill(s): Requested Prescriptions Pending Prescriptions Disp Refills Blood-Glucose Meter [Pharmacy Med Name: BLOOD-GLUCOSE METER] 1 Each 0 Sig: USE TO CHECK BLOOD SUGAR DAILY Date of last office visit : 10/30/2023 Date of next office visit : 11/20/2023 Last 2 Encounter Wt Readings: Date: Wt: 09/18/2023 89.9 kg (198 lb 3.1 oz) 09/04/2023 91.9 kg (202 lb 9.6 oz) Diabetes: Hemoglobin A1C (%) Date Value 08/15/2023 7.5 04/05/2020 9.1 Hemoglobin A1C (POCT) (%) Date Value 12/13/2021 7.9 Please advise. Diann Green MA documented in this encounter [facility] 10-30-2023 Telephone encounter Note Pharmacy verified in [employer]. Patient has been identified by name and date of : Yes Patient aware RX will be sent to pharmacy. No need to notify patient. Pharmacy phones for refill(s): Requested Prescriptions Pending Prescriptions Disp Refills Blood-Glucose Meter [Pharmacy Med Name: BLOOD-GLUCOSE METER] 1 Each 0 Sig: USE TO CHECK BLOOD SUGAR DAILY Date of last office visit : 10/30/2023 Date of next office visit : 11/20/2023 Last 2 Encounter Wt Readings: Date: Wt: 09/18/2023 89.9 kg (198 lb 3.1 oz) 09/04/2023 91.9 kg (202 lb 9.6 oz) Diabetes: Hemoglobin A1C (%) Date Value 08/15/2023 7.5 04/05/2020 9.1 Hemoglobin A1C (POCT) (%) Date Value 12/13/2021 7.9 Please advise. Diann Green MA [facility] 10-30-2023 History of Present illness Narrative Images from the original note were not included. Primary Care Pharmacy Visit CC (Reason for Consult): (E11.9, Z79.4) Type 2 diabetes mellitus without complication, with long-term current use of insulin (HCC) (primary encounter diagnosis) (I10) Primary hypertension Goal(s): A1c <7% Last Collaborating Provider Visit: 02/14/[address] Rivero Erik Coco Clarke is a 67 year old male presenting for follow up visit in person. Patient consents to pharmacy collaborative practice agreement. Last Pharmacy Visit: 09/04/23 HPI: Reports he's having trouble with his BP lately, enrolled in cardiac rehab 3x/week. Brought in BP readings from rehab as they suggested following up with office regarding elevated readings Reports he self-increased his dose of carvedilol recently (1 and a half tablet twice daily) Having headaches that come and go occasionally Tolerating Mounjaro well Noticing some weight loss Had a cup of coffee on his way to appointment today (half caf) Requesting regular BG testing supplies to have at home to double check CGM readings when reading low Current DM Medications: Metformin ER 500mg tabs - 1000 mg BID Empagliflozin (Jardiance) 10 mg daily Mounjaro 7.5 mg once weekly on Fridays Toujeo 38 units once daily - taking 35 units once daily Previously Trialed DM Meds: Glimepiride - changed to insulin Ariella Moser - can't remember why he stopped it Jardiance 25mg - balanitis Diet Denies any recent changes GLYCEMIC CONTROL: Glucometer present at visit: Yes Hypoglycemia: No CGM Data Blood pressure/Pulse/Weight Date Blood Pressure Pulse 10/28 174/100 90 10/25 184/98 97 10/23 164/100 103 10/21 180/90 94 10/18 168/70 84 10/16 170/90 97 Past medical history reviewed. ALLERGIES No Known Allergies Current Outpatient Medications Medication Sig Dispense Refill Blood-Glucose Meter Use to check blood sugar daily 1 Each 0 Lancets Use as instructed to check blood sugar twice daily 200 Each 3 blood sugar diagnostic (BLOOD GLUCOSE TEST) test strip Use as instructed to check blood sugar twice daily 200 Each 3 lisinopril (ZESTRIL) 5 mg tablet Take 1 tablet by mouth once daily. 30 tablet 2 insulin glargine U-300 conc (TOUJEO SOLOSTAR U-300 INSULIN) 300 unit/mL (1.5 mL) Inject 35 Units subcutaneously once daily. tirzepatide (MOUNJARO) 7.5 mg/0.5 mL pen injector Inject 7.5 mg subcutaneously one time a week. 6 mL 1 Blood-Glucose Sensor (Anne Fogarty G7 SENSOR) yesenia APPLY NEW SENSOR EVERY 10 DAYS 9 Each 3 tamsulosin (FLOMAX) 0.4 mg Take 1 capsule by mouth once daily. 90 capsule 1 BRILINTA 90 mg tablet take 1 tablet twice a day 180 tablet 3 metFORMIN ER (GLUCOPHAGE XR) 500 mg 24 hr tablet TAKE 2 TABLETS 2 TIMES DAILY WITH MEALS 360 tablet 3 carvedilol (COREG) 25 mg tablet Take 1 tablet by mouth two times a day. 90 tablet 3 BD ULTRAFINE III MINI PEN 31 gauge x 3/16 USE AND DISCARD 1 PEN NEEDLE ONCE DAILY WITH INSULIN PEN 90 Each 3 Blood Pressure Monitor Use to monitor blood pressure 1 Each 0 empagliflozin (JARDIANCE) 10 mg tablet Take 1 tablet by mouth daily with breakfast. 90 tablet 3 Blood-Glucose Meter,Continuous (DEXCOM G7 GENERATOR ASSEMBLER) [facility] [place] continuously to monitor glucose, IDDM, E 11.3290 rosuvastatin (CRESTOR) 10 mg tablet TAKE 1 TABLET ONCE DAILY 90 tablet 3 aspirin, enteric coated (ECOTRIN LOW STRENGTH) 81 mg EC tablet Take 1 tablet by mouth once daily. No current facility-administered medications for this visit. Pill bottles are not present. Adherence: denies missed doses. Rx coverage: Payor: MEDICARE / Plan: MEDICARE A AND B / Product Type: Medicare / Medications affordable? Yes PHARMACOTHERAPY PREVENTATIVE MEDS: On MARY BETH/ARB: No On Statin: Yes On ASA: Yes EXAM: BP 179/96 (BP Site: Left Arm, BP Position: Sitting, BP Cuff Size: Regular Adult) Pulse 84 188/104 P85 188/106 179/96 P 84 Last 3 Encounter BP Readings: Date: BP: 09/18/2023 152/78 09/04/2023 140/70 08/15/2023 135/66 Wt: 89.9 kg (198 lb 3.1 oz) BMI: 30.14 kg/(m^2) LABS: Lab Results Component Value Date HBA1C 7.5 08/15/2023 HBA1C 7.7 11/14/2022 HBA1C 7.8 07/03/2022 HBA1C 7.9 12/13/2021 HBA1C 9.1 04/05/2020 HBA1C 9.0 11/03/2019 HBA1C 8.4 03/14/2019 HBA1C 8.0 08/24/2018 Glucose 160 09/05/2023 BUN 11 09/05/2023 Creatinine 0.59 09/05/2023 Sodium 140 09/05/2023 Potassium 4.2 09/05/2023 Chloride 106 09/05/2023 CO2 22 09/05/2023 Protein, Total 6.6 09/05/2023 Albumin 3.8 09/05/2023 Calcium 9.0 09/05/2023 Alkaline Phosphatase 67 09/05/2023 Bilirubin, Total 0.5 09/05/2023 AST 23 09/05/2023 ALT 18 09/05/2023 Lab Results Component Value Date CHOL 107 05/12/2022 CHOL 146 04/05/2020 LDL 41 05/12/2022 LDL 53 04/05/2020 HDL 29 05/12/2022 HDL 31 04/05/2020 TG 187 05/12/2022 TG 310 04/05/2020 Albumin/Creat Ratio (mg/g) Date Value 05/12/2022 <21 eGFR-All Other Races Date Value 06/09/2021 >60 04/05/2020 >60 . Estimated Glomerular Filtration Rate (mL/min/1.73m ) Date Value 09/05/2023 106 ASSESSMENT/PLAN: 1. Type 2 diabetes mellitus without complication, with long-term current use of insulin ([facility]) - ICD9: 250.00, V58.67, ICD10: E11.9, Z79.4 (primary diagnosis) - Improving control - Continue current medications - Statin prescribed - rosuvastatin - Counseled on healthy diet and regular exercise - Follow up in 1 month, sooner should any other issues arise. - Due for A1c ~11/14/23 2. Primary hypertension - ICD9: 401.9, ICD10: I10 - Uncontrolled. BP in office above goal <130/80; home (cardiac rehab) readings consistently above goal. Patient previously on lisinopril 5mg without any issue prior to recent hospitalization in July. Will restart lisinopril daily. - Start lisinopril 5 mg once daily - Continue carvedilol 25 mg twice daily - Recommend home blood pressure monitoring, to bring results to next visit - Encouraged sodium restriction, DASH or Mediterranean diet - Recommend regular aerobic exercise - Follow up in 3 weeks for hypertension visit Follow Up: Next PCP visit: 12/06/23 Next PharmD visit: 11/20/23 Chasidy RojoD, BCACP Primary Care Clinical Industrial Hygiene Manager I spent a total of 35 minutes on the date of the service which included preparing to see the patient, [id number] patient care, completing clinical documentation, counseling and educating the patient/family/caregiver, and ordering medications, tests, or procedures. documented in this encounter [facility] 10-30-2023 Instructions Ophelia Null RPh - 10/30/2023 9:00 AM EDT Start lisinopril 5 mg once a day in the morning Continue carvedilol 25 mg twice a day documented in this encounter [facility] 10-23-2023 Telephone encounter Note Completed Request were sent with confirmation. (f) [phone] Forms placed in Ma's file. Perla DON) [facility] 10-23-2023 Miscellaneous Notes Completed Request were sent with confirmation. (e) [phone] Forms placed in Ma's file. Perla DON) Received Orders from [facility] re: Orders for provider to review and sign. Forms placed in providers box. Once completed please send to : (f): [phone] Please route to [place] for completion. Perla DON) documented in this encounter [facility] 10-22-2023 Telephone encounter Note Received Orders from [facility] re: Orders for provider to review and sign. Forms placed in providers box. Once completed please send to : (k): [phone] Please route to [place] for completion. Perla DON) [facility] 10-08-2023 Telephone encounter Note Refill has been sent into requested pharmacy Thanks [facility] 10-08-2023 Miscellaneous Notes Refill has been sent into requested pharmacy Thanks Patient called and LMOM for PharmD. States he received a letter from [facility] about inability to continue filling Mounjaro. Would like to switch to a local pharmacy ([facility] in [place]) to see if available. Pending Mounjaro refill for PCP, as Mounjaro still not included in pharmacist CPA at this time. Patient's request for medication is as follows: Requested Prescriptions Pending Prescriptions Disp Refills tirzepatide (MOUNJARO) 7.5 mg/0.5 mL pen injector 6 mL 1 Sig: Inject 7.5 mg subcutaneously one time a week. Prescription(s) as above. Please process accordingly. Ophelia Null PharmD, VESTA Primary Care Clinical Industrial Hygiene Manager documented in this encounter [facility] 10-08-2023 Telephone encounter Note Patient called and LMOM for PharmD. States he received a letter from [facility] about inability to continue filling Mounjaro. Would like to switch to a local pharmacy ([facility] in [place]) to see if available. Pending Mounjaro refill for PCP, as Mounjaro still not included in pharmacist CPA at this time. Patient's request for medication is as follows: Requested Prescriptions Pending Prescriptions Disp Refills tirzepatide (MOUNJARO) 7.5 mg/0.5 mL pen injector 6 mL 1 Sig: Inject 7.5 mg subcutaneously one time a week. Prescription(s) as above. Please process accordingly. Ophelia Null PharmD, VESTA Primary Care Clinical Industrial Hygiene Manager [facility] Work Phone: 09-25-2023 History of Present illness Narrative QOL Call Tracking Documentation Follow-Up Type: Phone Call Call Attempt: 1st Attempt Call Status: Patient will complete in MyChart documented in this encounter [facility] 09-20-2023 Telephone encounter Note Completed Request were sent with confirmation. (f) [phone] Forms placed in Ma's file. Perla Nuñez (RUTH) [facility] 09-20-2023 Telephone encounter Note Completed Request were sent with confirmation. (f) [phone] Forms placed in Ma's file. Perla Nuñez (RUTH) [facility] 09-20-2023 Miscellaneous Notes Completed Request were sent with confirmation. (f) [phone] Forms placed in Ma's file. Perla Nuñez (RUTH) Received forms from [facility] re: d/c summary for provider to review and sign. Forms placed in providers box. Once completed please send to : (f): [phone] Please route to [place] for completion. Perla Nuñez (RUTH) documented in this encounter [facility] 09-20-2023 Miscellaneous Notes Completed Request were sent with confirmation. (f) [phone] Forms placed in Ma's file. Perla Nuñez (RUTH) Received Orders from [facility] re: POC for provider to review and sign. Forms placed in providers box. Once completed please send to : (f): [phone] Please route to [place] for completion. Perla Nuñez (RUTH) documented in this encounter [facility] 09-20-2023 Telephone encounter Note Received Orders from [facility] re: POC for provider to review and sign. Forms placed in providers box. Once completed please send to : (f): [phone] Please route to [place] for completion. Perla DON) [facility] 09-20-2023 Telephone encounter Note Pharmacy verified in [employer]. Patient has been identified by name and date of : Yes Patient aware RX will be sent to pharmacy. No need to notify patient. Patient phones for refill(s): Requested Prescriptions Pending Prescriptions Disp Refills Blood-Glucose Sensor (DEXCOM G7 SENSOR) yesenia [Pharmacy Med Name: DEXCOM G7 MIS SENSOR] 3 Sig: APPLY NEW SENSOR EVERY 10 DAYS Date of last office visit : 09/04/2023 Date of next office visit : 10/30/2023 Last 2 Encounter Wt Readings: Date: Wt: 09/18/2023 89.9 kg (198 lb 3.1 oz) 09/04/2023 91.9 kg (202 lb 9.6 oz) Diabetes: Hemoglobin A1C (%) Date Value 08/15/2023 7.5 04/05/2020 9.1 Hemoglobin A1C (POCT) (%) Date Value 12/13/2021 7.9 Please advise. Diann Green MA [facility] 09-20-2023 Miscellaneous Notes Pharmacy verified in [employer]. Patient has been identified by name and date of : Yes Patient aware RX will be sent to pharmacy. No need to notify patient. Patient phones for refill(s): Requested Prescriptions Pending Prescriptions Disp Refills Blood-Glucose Sensor (DEXCOM G7 SENSOR) yesenia [Pharmacy Med Name: DEXCOM G7 MIS SENSOR] 3 Sig: APPLY NEW SENSOR EVERY 10 DAYS Date of last office visit : 09/04/2023 Date of next office visit : 10/30/2023 Last 2 Encounter Wt Readings: Date: Wt: 09/18/2023 89.9 kg (198 lb 3.1 oz) 09/04/2023 91.9 kg (202 lb 9.6 oz) Diabetes: Hemoglobin A1C (%) Date Value 08/15/2023 7.5 04/05/2020 9.1 Hemoglobin A1C (POCT) (%) Date Value 12/13/2021 7.9 Please advise. Diann Green MA documented in this encounter [facility] 09-18-2023 Note HNO ID: [id number] Author: BURKE BARRON, DO Service: ? Author Type: Physician Type: Progress Notes Filed: 09/18/2023 09:20 Note Text: [facility] OUTPATIENT VISIT DATE September 18, 2023 PRIMARY CARE PHYSICIAN: Denis Rivero [address] [place] [address] HISTORY OF PRESENT ILLNESS: Mr. Clarke is a 67 year old male. The patient returns for follow-up secondary to history of hypertrophic obstructive cardiomyopathy with severe stenosis now status post myomectomy and AVR with previous history of coronary disease status post stenting, hypertension, hyperlipidemia and diabetes. He has incisional discomfort but otherwise is asymptomatic. He denies chest discomfort, dyspnea, orthopnea, paroxysmal nocturnal dyspnea, palpitations, near-syncope, syncope, GI/ bleeding or melena. PLAN AND RECOMMENDATIONS: The patient appears stable without apparent symptoms that would suggest angina or cardiac decompensation. Heart rate, blood pressure and recent cholesterol profile are favorable. We have therefore made no additions or changes. He plans on enrolling in cardiac rehab in the near future. Will look forward to reevaluate him in 3 months time. Dietary and lifestyle modification was reemphasized to facilitate risk factor reduction. Vitals: BP 152/78 Pulse (!) 58 Ht 172.7 cm (5' 8) Wt 89.9 kg (198 lb 3.1 oz) SpO2 98% BMI 30.14 kg/m? Physical Exam Vitals reviewed. Constitutional: General: He is not in acute distress. Appearance: He is well-developed. He is not diaphoretic. HENT: Head: Normocephalic and atraumatic. Right Ear: External ear normal. Left Ear: External ear normal. Nose: Nose normal. Eyes: General: No scleral icterus. Right eye: No discharge. Left eye: No discharge. Pupils: Pupils are equal, round, and reactive to light. Neck: Thyroid: No thyromegaly. Vascular: No JVD. Cardiovascular: Rate and Rhythm: Normal rate and regular rhythm. Heart sounds: Murmur heard. Systolic murmur is present with a grade of 1/6. No friction rub. No gallop. Pulmonary: Effort: Pulmonary effort is normal. No respiratory distress. Breath sounds: Normal breath sounds. No wheezing or rales. Abdominal: General: Bowel sounds are normal. Palpations: Abdomen is soft. Musculoskeletal: General: Normal range of motion. Cervical back: Neck supple. Skin: General: Skin is warm and dry. Coloration: Skin is not pale. Neurological: Mental Status: He is alert and oriented to person, place, and time. Cranial Nerves: No cranial nerve deficit. Psychiatric: Mood and Affect: Mood is not anxious or depressed. Behavior: Behavior normal. Thought Content: Thought content normal. Judgment: Judgment normal. Review of Systems Constitutional: Negative for activity change, appetite change, fatigue and unexpected weight change. HENT: Negative for ear pain and trouble swallowing. Eyes: Negative for pain and visual disturbance. Respiratory: Negative for chest tightness and shortness of breath. Cardiovascular: Positive for chest pain (incisional). Negative for palpitations and leg swelling. Gastrointestinal: Negative for abdominal pain and blood in stool. Endocrine: Negative for cold intolerance and heat intolerance. Genitourinary: Negative for dysuria, hematuria and scrotal swelling. Musculoskeletal: Negative for arthralgias and myalgias. Skin: Negative for pallor and rash. Allergic/Immunologic: Negative for immunocompromised state. Neurological: Negative for dizziness, syncope and light-headedness. Hematological: Negative for adenopathy. Does not bruise/bleed easily. Psychiatric/Behavioral: Negative for sleep disturbance. The patient is not nervous/anxious. PAST MEDICAL HISTORY Diagnosis Date BPH (benign prostatic hypertrophy) with urinary retention 01/22/2012 Bradycardia ED (erectile dysfunction) Hyperlipidemia LDL goal < 100 01/22/2012 Hypertension 01/22/2012 Obesity Type 2 diabetes mellitus not at goal 01/22/2012 PAST SURGICAL HISTORY Procedure Laterality Date CARDIAC CATHETERIZATION HX 1999, 2004 no blockages, mildly leaky valve LEFT HEART CATH,PERCUTANEOUS 06/2022 stent placed PAST SURGICAL HISTORY OF 12/2015 L3-S1 laminectomy, decompression PAST SURGICAL HISTORY OF 01/16/2017 Lumbar reexploration L3-S1 with laminectomy and decompression Social History Tobacco Use Smoking status: Former Types: Cigarettes Quit date: 01/21/2010 Years since quittin.6 Smokeless tobacco: Current Types: Chew Tobacco comments: Patient states he has been chewing since he was younger - about a half can. Patient states it is the pouch type. Vaping Use Vaping Use: Never used Substance Use Topics Alcohol use: No Drug use: No FAMILY HISTORY Problem Relation Age of Onset Diabetes Mother Heart Father Diabetes Father (more content not included)... [facility] 09-18-2023 History of Present illness Narrative Images from the original note were not included. [facility] OUTPATIENT VISIT DATE September 18, 2023 PRIMARY CARE PHYSICIAN: [place] [address] HISTORY OF PRESENT ILLNESS: Mr. Clarek is a 67 year old male. The patient returns for follow-up secondary to history of hypertrophic obstructive cardiomyopathy with severe stenosis now status post myomectomy and AVR with previous history of coronary disease status post stenting, hypertension, hyperlipidemia and diabetes. He has incisional discomfort but otherwise is asymptomatic. He denies chest discomfort, dyspnea, orthopnea, paroxysmal nocturnal dyspnea, palpitations, near-syncope, syncope, GI/ bleeding or melena. PLAN AND RECOMMENDATIONS: The patient appears stable without apparent symptoms that would suggest angina or cardiac decompensation. Heart rate, blood pressure and recent cholesterol profile are favorable. We have therefore made no additions or changes. He plans on enrolling in cardiac rehab in the near future. Will look forward to reevaluate him in 3 months time. Dietary and lifestyle modification was reemphasized to facilitate risk factor reduction. Vitals: BP 152/78 Pulse (!) 58 Ht 172.7 cm (5' 8) Wt 89.9 kg (198 lb 3.1 oz) SpO2 98% BMI 30.14 kg/m Physical Exam Vitals reviewed. Constitutional: General: He is not in acute distress. Appearance: He is well-developed. He is not diaphoretic. HENT: Head: Normocephalic and atraumatic. Right Ear: External ear normal. Left Ear: External ear normal. Nose: Nose normal. Eyes: General: No scleral icterus. Right eye: No discharge. Left eye: No discharge. Pupils: Pupils are equal, round, and reactive to light. Neck: Thyroid: No thyromegaly. Vascular: No JVD. Cardiovascular: Rate and Rhythm: Normal rate and regular rhythm. Heart sounds: Murmur heard. Systolic murmur is present with a grade of 1/6. No friction rub. No gallop. Pulmonary: Effort: Pulmonary effort is normal. No respiratory distress. Breath sounds: Normal breath sounds. No wheezing or rales. Abdominal: General: Bowel sounds are normal. Palpations: Abdomen is soft. Musculoskeletal: General: Normal range of motion. Cervical back: Neck supple. Skin: General: Skin is warm and dry. Coloration: Skin is not pale. Neurological: Mental Status: He is alert and oriented to person, place, and time. Cranial Nerves: No cranial nerve deficit. Psychiatric: Mood and Affect: Mood is not anxious or depressed. Behavior: Behavior normal. Thought Content: Thought content normal. Judgment: Judgment normal. Review of Systems Constitutional: Negative for activity change, appetite change, fatigue and unexpected weight change. HENT: Negative for ear pain and trouble swallowing. Eyes: Negative for pain and visual disturbance. Respiratory: Negative for chest tightness and shortness of breath. Cardiovascular: Positive for chest pain (incisional). Negative for palpitations and leg swelling. Gastrointestinal: Negative for abdominal pain and blood in stool. Endocrine: Negative for cold intolerance and heat intolerance. Genitourinary: Negative for dysuria, hematuria and scrotal swelling. Musculoskeletal: Negative for arthralgias and myalgias. Skin: Negative for pallor and rash. Allergic/Immunologic: Negative for immunocompromised state. Neurological: Negative for dizziness, syncope and light-headedness. Hematological: Negative for adenopathy. Does not bruise/bleed easily. Psychiatric/Behavioral: Negative for sleep disturbance. The patient is not nervous/anxious. PAST MEDICAL HISTORY Diagnosis Date BPH (benign prostatic hypertrophy) with urinary retention 01/22/2012 Bradycardia ED (erectile dysfunction) Hyperlipidemia LDL goal < 100 01/22/2012 Hypertension 01/22/2012 Obesity Type 2 diabetes mellitus not at goal 01/22/2012 PAST SURGICAL HISTORY Procedure Laterality Date CARDIAC CATHETERIZATION HX 1999, 2004 no blockages, mildly leaky valve LEFT HEART CATH,PERCUTANEOUS 06/2022 stent placed PAST SURGICAL HISTORY OF 12/2015 L3-S1 laminectomy, decompression PAST SURGICAL HISTORY OF 01/16/2017 Lumbar reexploration L3-S1 with laminectomy and decompression Social History Tobacco Use Smoking status: Former Types: Cigarettes Quit date: 01/21/2010 Years since quittin.6 Smokeless tobacco: Current Types: Chew Tobacco comments: Patient states he has been chewing since he was younger - about a half can. Patient states it is the pouch type. Vaping Use Vaping Use: Never used Substance Use Topics Alcohol use: No Drug use: No FAMILY HISTORY Problem Relation Age of Onset Diabetes Mother Heart Father Diabetes Father ALLERGIES No Known Allergies CURRENT MEDICATIONS: tamsulosin (FLOMAX) 0.4 mg^Take 1 capsule by mouth once daily.^Disp: 90 capsule^Rfl: 1 Blood-Glucose Sensor (Anne Fogarty G7 SENSOR) yesenia^Use one sensor every 10 days, IDDM, E 11.3293^Disp: 9 Each^Rfl: 3 insulin glargine U-300 conc (TOUJEO SOLOSTAR U-300 INSULIN) 300 unit/mL (1.5 mL)^Inject 38 Units subcutaneously once daily.^Disp: ^Rfl: BRILINTA 90 mg tablet^take 1 tablet twice a day^Disp: 180 tablet^Rfl: 3 metFORMIN ER (GLUCOPHAGE XR) 500 mg 24 hr tablet^TAKE 2 TABLETS 2 TIMES DAILY WITH MEALS^Disp: 360 tablet^Rfl: 3 tirzepatide (MOUNJARO) 7.5 mg/0.5 mL pen injector^Inject 7.5 mg subcutaneously one time a week.^Disp: 6 mL^Rfl: 1 carvedilol (COREG) 25 mg tablet^Take 1 tablet by mouth two times a day.^Disp: 90 tablet^Rfl: 3 BD ULTRAFINE III MINI PEN 31 gauge x 16^USE AND DISCARD 1 PEN NEEDLE ONCE DAILY WITH INSULIN PEN^Disp: 90 Each^Rfl: 3 Blood Pressure Monitor^Use to monitor blood pressure^Disp: 1 Each^Rfl: 0 empagliflozin (JARDIANCE) 10 mg tablet^Take 1 tablet by mouth daily with breakfast.^Disp: 90 tablet^Rfl: 3 Blood-Glucose Meter,Continuous (DEXCOM G7 GENERATOR ASSEMBLER) misc^Use continuously to monitor glucose, IDDM, E 11.3293^Disp: ^Rfl: rosuvastatin (CRESTOR) 10 mg tablet^TAKE 1 TABLET ONCE DAILY^Disp: 90 tablet^Rfl: 3 blood sugar diagnostic (ACCU-CHEK LATIA PLUS TEST STRP) test strip^Use to test blood sugars up to twice daily when CGM reading seems inaccurate. Insulin-dependent diabetes, E11.9^Disp: 200 Strip^Rfl: 3 aspirin, enteric coated (ECOTRIN LOW STRENGTH) 81 mg EC tablet^Take 1 tablet by mouth once daily.^Disp: ^Rfl: Lancets lancets^Use as instructed to test glucose 2 times daily.^Disp: 200 Each^Rfl: 1 Burke Barron DO, [facility], [facility] Crusher Setter, [facility] Ambulatory Cardiology Crusher Setter, [facility] Cardiac Rehabilitation Crusher Setter, [facility] Cardiac [facility] Crusher Setter, [facility] Crusher Setter, [facility] Ambulatory Cardiology Clinical Top Lift And Automatic Window Repairer Profressor of Medicine, [facility] - [facility] [employer], [employer] Department of Cardiovascular Medicine/[facility] [place], [facility] Please note: This note has been produced using speech recognition software and may contain errors related to that system including yovany, punctuation, spelling, words, gender and phrases that may be inappropriate. documented in this encounter [facility] 09-11-2023 Telephone encounter Note Received forms from [employer] re: d/c summary for provider to review and sign. Forms placed in providers box. Once completed please send to : (f): [phone] Please route to RUTH for completion. Perla DON) [facility] 09-04-2023 Telephone encounter Note Patient reports starting tamsulosin post-surgery, but unsure if he's to continue long-term since no refills given. Please confirm if patient is to continue and if so, requesting refill be sent to [facility]. Patient's request for medication is as follows: Requested Prescriptions Pending Prescriptions Disp Refills tamsulosin (FLOMAX) 0.4 mg 90 capsule 1 Sig: Take 1 capsule by mouth once daily. Prescription(s) as above. Please process accordingly. Ophelia Null PharmD Primary Care Clinical Industrial Hygiene Manager [facility] Work Phone: 09-04-2023 Miscellaneous Notes Patient reports starting tamsulosin post-surgery, but unsure if he's to continue long-term since no refills given. Please confirm if patient is to continue and if so, requesting refill be sent to [facility] pharmacy. Patient's request for medication is as follows: Requested Prescriptions Pending Prescriptions Disp Refills tamsulosin (FLOMAX) 0.4 mg 90 capsule 1 Sig: Take 1 capsule by mouth once daily. Prescription(s) as above. Please process accordingly. Ophelia Null PharmD Primary Care Clinical Industrial Hygiene Manager documented in this encounter [facility] 09-04-2023 History of Present illness Narrative Images from the original note were not included. Primary Care Pharmacy Visit CC (Reason for Consult): (E11.9, Z79.4) Type 2 diabetes mellitus without complication, with long-term current use of insulin (HCC) (primary encounter diagnosis) Goal(s): A1c <7% Last Collaborating Provider Visit: 02/14/[address] Mat Valencia Coco Clarke is a 67 year old male presenting for follow up visit in person. Patient consents to pharmacy collaborative practice agreement. Last Pharmacy Visit: 05/21/23 - Mounjaro increased to 7.5 mg weekly, A1c ordered HPI: Reports doing well Recovering from recent heart surgery States after he was in the hospital, he had been told to take only 14 units of Toujeo daily. States his BGs were high so he has gradually gone up on dose since then States he was started on tamsulosin after the surgery, but not sure if he should continue this since he didn't get any refills. If this is to be continued, requesting refill sent to mail order pharmacy Did not have Mounjaro for a couple weeks around surgery, just resumed 2 weeks ago Current DM Medications: Metformin ER 500mg tabs - 1000 mg BID Empagliflozin (Jardiance) 10 mg daily Mounjaro 7.5 mg once weekly on Fridays Toujeo 18 units once daily - taking 38 units daily Previously Trialed DM Meds: Glimepiride - changed to insulin Ariella Moser - can't remember why he stopped it Jardiance 25mg - balanitis GLYCEMIC CONTROL: Glucometer present at visit: Yes Hypoglycemia: No CGM Data Past medical history reviewed. ALLERGIES No Known Allergies Current Outpatient Medications Medication Sig Dispense Refill furosemide (LASIX) 20 mg tablet Take 1 tablet by mouth once daily for 5 days. 5 tablet 0 insulin glargine U-300 conc (TOUJEO SOLOSTAR U-300 INSULIN) 300 unit/mL (1.5 mL) Inject 18 Units subcutaneously once daily. 13.5 mL 4 potassium chloride ER (KLOR-CON M10) 10 mEq tablet Take 1 tablet by mouth once daily. 5 tablet 0 tamsulosin (FLOMAX) 0.4 mg Take 1 capsule by mouth once daily. 30 capsule 0 BRILINTA 90 mg tablet take 1 tablet twice a day 180 tablet 3 metFORMIN ER (GLUCOPHAGE XR) 500 mg 24 hr tablet TAKE 2 TABLETS 2 TIMES DAILY WITH MEALS 360 tablet 3 tirzepatide (MOUNJARO) 7.5 mg/0.5 mL pen injector Inject 7.5 mg subcutaneously one time a week. 6 mL 1 carvedilol (COREG) 25 mg tablet Take 1 tablet by mouth two times a day. 90 tablet 3 BD ULTRAFINE III MINI PEN 31 gauge x 3/16 USE AND DISCARD 1 PEN NEEDLE ONCE DAILY WITH INSULIN PEN 90 Each 3 Blood Pressure Monitor Use to monitor blood pressure 1 Each 0 empagliflozin (JARDIANCE) 10 mg tablet Take 1 tablet by mouth daily with breakfast. 90 tablet 3 Blood-Glucose Meter,Continuous (DEXCOM G7 GENERATOR ASSEMBLER) misc Use continuously to monitor glucose, IDDM, E 11.3293 Blood-Glucose Sensor (DEXCOM G7 SENSOR) yesenia Use one sensor every 10 days, IDDM, E 11.3293 rosuvastatin (CRESTOR) 10 mg tablet TAKE 1 TABLET ONCE DAILY 90 tablet 3 blood sugar diagnostic (ACCU-CHEK LATIA PLUS TEST STRP) test strip Use to test blood sugars up to twice daily when CGM reading seems inaccurate. Insulin-dependent diabetes, E11.9 200 Strip 3 aspirin, enteric coated (ECOTRIN LOW STRENGTH) 81 mg EC tablet Take 1 tablet by mouth once daily. Lancets lancets Use as instructed to test glucose 2 times daily. 200 Each 1 Current Facility-Administered Medications Medication Dose Route Frequency Provider Last Rate Last Admin perflutren lipid microspheres 1.3 mL in NaCl (PF) 0.9% 10 mL injection (DEFINITY) INTRAVENOUS DIRECTED PRN Burke Barron, sodium chloride 0.9 % (flush) 10 mL (BD POSIFLUSH) 10 mL INTRAVENOUS DIRECTED PRN Burke Barron, Pill bottles are not present. Adherence: denies missed doses. Rx coverage: Payor: MEDICARE / Plan: MEDICARE A AND B / Product Type: Medicare / Medications affordable? Yes PHARMACOTHERAPY PREVENTATIVE MEDS: On MARY BETH/ARB: No On Statin: Yes On ASA: Yes EXAM: There were no vitals taken for this visit. Last 3 Encounter BP Readings: Date: BP: 08/15/2023 135/66 07/16/2023 118/62 07/13/2023 131/65 Wt: 90.7 kg (200 lb) BMI: 30.41 kg/(m^2) LABS: Lab Results Component Value Date HBA1C 7.5 08/15/2023 HBA1C 7.7 11/14/2022 HBA1C 7.8 07/03/2022 HBA1C 7.9 12/13/2021 HBA1C 9.1 04/05/2020 HBA1C 9.0 11/03/2019 HBA1C 8.4 03/14/2019 HBA1C 8.0 08/24/2018 Glucose 174 08/21/2023 BUN 17 08/21/2023 Creatinine 0.64 08/21/2023 Sodium 137 08/21/2023 Potassium 3.9 08/21/2023 Chloride 102 08/21/2023 CO2 24 08/21/2023 Protein, Total 5.7 08/21/2023 Albumin 3.1 08/21/2023 Calcium 8.5 08/21/2023 Alkaline Phosphatase 46 08/21/2023 Bilirubin, Total 1.0 08/21/2023 AST 22 08/21/2023 ALT 13 08/21/2023 Lab Results Component Value Date CHOL 107 05/12/2022 CHOL 146 04/05/2020 LDL 41 05/12/2022 LDL 53 04/05/2020 HDL 29 05/12/2022 HDL 31 04/05/2020 TG 187 05/12/2022 TG 310 04/05/2020 Albumin/Creat Ratio (mg/g) Date Value 05/12/2022 <21 eGFR-All Other Races Date Value 06/09/2021 >60 04/05/2020 >60 . Estimated Glomerular Filtration Rate (mL/min/1.73m ) Date Value 08/21/2023 103 ASSESSMENT/PLAN: 1. Type 2 diabetes mellitus without complication, with long-term current use of insulin (HCC) - ICD9: 250.00, V58.67, ICD10: E11.9, Z79.4 - Improving control - Continue current medications (updated med list to reflect current dose of Toujeo) - Statin prescribed - rosuvastatin - Blood glucose monitoring on a continuous glucose monitoring schedule - Counseled on healthy diet and regular exercise - Follow up in 2 months, sooner should any other issues arise. Follow Up: Next PCP visit: 12/06/23 Next PharmD visit: 10/30/23 Ophelia Null, PharmWero Primary Care Clinical Industrial Hygiene Manager I spent a total of 30 minutes on the date of the service which included preparing to see the patient, [id number] patient care, completing clinical documentation, counseling and educating the patient/family/caregiver, and ordering medications, tests, or procedures. documented in this encounter [facility] 09-04-2023 History of Present illness Narrative ESTABLISHED PATIENT Erik Clarke is a 67 year old male presenting for Follow Up (Has some pain around incision ). HISTORY OF PRESENT ILLNESS S/p myomectomy and aortic valve replacement 08/15 Since surgery he is doing okay The incisional pain is bothering him quite a bit, he used oxy IR 5mg previously hardly took the edge off, only worked for 3 of the 6 hours he is out of these now Constant pain Now just taking tylenol which doesn't do anything Tried heat, ice, lidocaine as well with minimal relief Sneezing hurts the worst, tender to touch Incision has not had any redness, warmth, drainage No chest/ cardiac pains Breathing normally, denies SOB, palpitations Denies any leg edema Walking each day now Checking BP at home 130/75 usually, increased with pain DM has been doing okay Sugar 144 currently Seeing pharm D today after this Taking jardiance, metformin, mounjaro, toujeo (32 units for the last couple weeks because sugars have higher since surgery) Eating and drinking fine Bowels are moving fine HISTORIES FAMILY HISTORY Problem Relation Age of Onset Diabetes Mother Heart Father Diabetes Father PAST MEDICAL HISTORY Diagnosis Date BPH (benign prostatic hypertrophy) with urinary retention 01/22/2012 Bradycardia ED (erectile dysfunction) Hyperlipidemia LDL goal < 100 01/22/2012 Hypertension 01/22/2012 Obesity Type 2 diabetes mellitus not at goal 01/22/2012 PAST SURGICAL HISTORY Procedure Laterality Date CARDIAC CATHETERIZATION HX 1999, 2004 no blockages, mildly leaky valve LEFT HEART CATH,PERCUTANEOUS 06/2022 stent placed PAST SURGICAL HISTORY OF 12/2015 L3-S1 laminectomy, decompression PAST SURGICAL HISTORY OF 01/16/2017 Lumbar reexploration L3-S1 with laminectomy and decompression Social History Tobacco Use Smoking status: Former Types: Cigarettes Quit date: 01/21/2010 Years since quittin.6 Smokeless tobacco: Current Types: Chew Tobacco comments: Patient states he has been chewing since he was younger - about a half can. Patient states it is the pouch type. Vaping Use Vaping Use: Never used Substance Use Topics Alcohol use: No Drug use: No Allergies: ALLERGIES No Known Allergies Medications: insulin glargine U-300 conc (TOUJEO SOLOSTAR U-300 INSULIN) 300 unit/mL (1.5 mL)^Inject 18 Units subcutaneously once daily.^Disp: 13.5 mL^Rfl: 4 potassium chloride ER (KLOR-CON M10) 10 mEq tablet^Take 1 tablet by mouth once daily.^Disp: 5 tablet^Rfl: 0 tamsulosin (FLOMAX) 0.4 mg^Take 1 capsule by mouth once daily.^Disp: 30 capsule^Rfl: 0 BRILINTA 90 mg tablet^take 1 tablet twice a day^Disp: 180 tablet^Rfl: 3 metFORMIN ER (GLUCOPHAGE XR) 500 mg 24 hr tablet^TAKE 2 TABLETS 2 TIMES DAILY WITH MEALS^Disp: 360 tablet^Rfl: 3 tirzepatide (MOUNJARO) 7.5 mg/0.5 mL pen injector^Inject 7.5 mg subcutaneously one time a week.^Disp: 6 mL^Rfl: 1 carvedilol (COREG) 25 mg tablet^Take 1 tablet by mouth two times a day.^Disp: 90 tablet^Rfl: 3 BD ULTRAFINE III MINI PEN 31 gauge x 3/16^USE AND DISCARD 1 PEN NEEDLE ONCE DAILY WITH INSULIN PEN^Disp: 90 Each^Rfl: 3 Blood Pressure Monitor^Use to monitor blood pressure^Disp: 1 Each^Rfl: 0 empagliflozin (JARDIANCE) 10 mg tablet^Take 1 tablet by mouth daily with breakfast.^Disp: 90 tablet^Rfl: 3 Blood-Glucose Meter,Continuous (DEXCOM G7 GENERATOR ASSEMBLER) misc^Use continuously to monitor glucose, IDDM, E 11.3293^Disp: ^Rfl: Blood-Glucose Sensor (DEXCOM G7 SENSOR) yesenia^Use one sensor every 10 days, IDDM, E 11.3293^Disp: ^Rfl: rosuvastatin (CRESTOR) 10 mg tablet^TAKE 1 TABLET ONCE DAILY^Disp: 90 tablet^Rfl: 3 blood sugar diagnostic (ACCU-CHEK LATIA PLUS TEST STRP) test strip^Use to test blood sugars up to twice daily when CGM reading seems inaccurate. Insulin-dependent diabetes, E11.9^Disp: 200 Strip^Rfl: 3 aspirin, enteric coated (ECOTRIN LOW STRENGTH) 81 mg EC tablet^Take 1 tablet by mouth once daily.^Disp: ^Rfl: Lancets lancets^Use as instructed to test glucose 2 times daily.^Disp: 200 Each^Rfl: 1 furosemide (LASIX) 20 mg tablet^Take 1 tablet by mouth once daily for 5 days.^Disp: 5 tablet^Rfl: 0 REVIEW OF SYSTEMS See HPI PHYSICAL EXAM BP 140/70 Pulse 82 Temp 36.7 C (98 F) (Temporal) Ht 172.7 cm (5' 8) Wt 91.9 kg (202 lb 9.6 oz) SpO2 97% BMI 30.81 kg/m General: Well developed, well nourished, in no acute distress. Head: Normocephalic, atraumatic. Neck: Supple. Eyes: Normal conjunctiva, no scleral icterus. Lungs: Clear to auscultation bilaterally, no rubs, no wheezing. Cardiac: Regular rate and rhythm. No murmurs, gallops, or rubs. Extremities: No edema. Skin: incision healing well, dried and scabbed, no erythema or drainage, is very tender to touch on chest wall ASSESSMENT: (I35.0) Nonrheumatic aortic (valve) stenosis (primary encounter diagnosis) (Z95.2) S/P aortic valve replacement (I25.10) Coronary artery disease involving [place] coronary artery of [place] heart without angina pectoris (I20.89) Stable angina ([facility]) (I42.1) HOCM (hypertrophic obstructive cardiomyopathy) ([facility]) (E11.9, Z79.4) Type 2 diabetes mellitus without complication, with long-term current use of insulin ([facility]) (E11.3293, Z79.4) Type 2 diabetes mellitus with both eyes affected 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, with long-term current use of insulin ([facility]) PLAN: - overall patient doing well, does have quite a bit of incisional pain still, reports oxy IR did very little, only taking tylenol at this point with heat/ice/lidocaine patches, will trial percocet for a few days, medication r/b/se/ae reviewed with patient and he verbalizes understanding - incision healing well, no concerns for infection, no concerning cardiac/post surgical symptoms today - chest xray, labs ordered, EKG competed - keep upcoming cardiology appt - DM improving per patient, does have pharmD follow up today - BP slightly elevated today although patient in significant pain, reports better home BP's when pain better controlled, we will work on pain management and have him continue to check BP's at home Rimma Varela APRN.ANNIE documented in this encounter [facility] 09-03-2023 Telephone encounter Note Form faxed to [facility] with confirmation [facility] 09-03-2023 Miscellaneous Notes Form faxed to [facility] with confirmation Form was completed and signed and placed in outbox Please fax back Type of letter/form/fax request - [facility] desk () for completion. Completed form needs to be faxed to [phone]. Route to [place] when form completed for processing documented in this encounter [facility] 09-03-2023 Telephone encounter Note Form was completed and signed and placed in outbox Please fax back [facility] 09-03-2023 Telephone encounter Note Type of letter/form/fax request - [facility] () for completion. Completed form needs to be faxed to [phone]. Route to [place] when form completed for processing [facility] 09-03-2023 Telephone encounter Note Record ID: [id number] Patient name: Erik Clarke Date: September 03, 2023 - 08:17 Administered by: HO Protocol: -> Great! Now we are in a secure chat environment. Protecting your health information is important to us. Ok, let's get started. Please verify your name and date of . Please click on the button with your first name. -> Erik Got it. On to the next question... Select the button with your last name. -> Vince Got it, thank you. Please enter your date of in MM/DD/YYYY format:(e.g., 05/11/1970 for May 11, 1970) -> 1955 Thank you for verifying your information. I'd like to ask you a few questions about how your recovery is going. Have there been any new or worsening symptoms since your last response? -> No I'm glad to hear that. Thank you for your time and for allowing us to care for you. Please be sure to reach out to your provider for any further symptoms or needs. Please rate your satisfaction with the care and support you have received from us since you have been home: (scale 1-5; 1 worst and 5 best) -> 5 Please tell me what you liked best about your experience: -> everyone was awesome Please tell me what you liked least about your experience: -> pain [facility] 09-03-2023 Miscellaneous Notes Record ID: [id number] Patient name: Erik Clarke Date: September 03, 2023 - 08:17 Administered by: HO Protocol: -> Great! Now we are in a secure chat environment. Protecting your health information is important to us. Ok, let's get started. Please verify your name and date of . Please click on the button with your first name. -> Erik Got it. On to the next question... Select the button with your last name. -> Vince Got it, thank you. Please enter your date of in MM/DD/YYYY format:(e.g., 05/11/1970 for May 11, 1970) -> 1955 Thank you for verifying your information. I'd like to ask you a few questions about how your recovery is going. Have there been any new or worsening symptoms since your last response? -> No I'm glad to hear that. Thank you for your time and for allowing us to care for you. Please be sure to reach out to your provider for any further symptoms or needs. Please rate your satisfaction with the care and support you have received from us since you have been home: (scale 1-5; 1 worst and 5 best) -> 5 Please tell me what you liked best about your experience: -> everyone was awesome Please tell me what you liked least about your experience: -> pain documented in this encounter [facility] 08-31-2023 Telephone encounter Note Images from the original note were not included. [facility] Phone Encounter DATE of SERVICE: 08/31/2023 TIME of SERVICE: 10:26 AM Status: [facility] Service/Provider: Cardiac Surgery Robert Ferrer M.D. Reason for call: Pain Contact information: [phone] Resolution: Routine referral to PCP/[employer] Comments: Pt called into heart center requesting a call back. Pt states he is experiencing incisional pain. States that it is not chest elizabeth, but only the area around the incision that he is not able to get relief. He has been using meds, lidocaine patches and suggested warm/cold pad. He will try that and let us know if he still has no relief. Pt does not have an apt scheduled with PCP. Advised to try and get first post op appt scheduled and provided him with OPD number to call if he is not able to be seen. Pt voiced understanding and will call back if any changes. Summer Guillaume, ABDIAS Date of Resolution: 08/31/2023 Time of Resolution 10:26 AM [facility] 08-31-2023 Miscellaneous Notes Images from the original note were not included. [facility] Phone Encounter DATE of SERVICE: 08/31/2023 TIME of SERVICE: 10:26 AM Status: [facility] Service/Provider: Cardiac Surgery Robert Ferrer M.D. Reason for call: Pain Contact information: [phone] Resolution: Routine referral to PCP/[employer] education Comments: Pt called into heart center requesting a call back. Pt states he is experiencing incisional pain. States that it is not chest elizabeth, but only the area around the incision that he is not able to get relief. He has been using meds, lidocaine patches and suggested warm/cold pad. He will try that and let us know if he still has no relief. Pt does not have an apt scheduled with PCP. Advised to try and get first post op appt scheduled and provided him with OPD number to call if he is not able to be seen. Pt voiced understanding and will call back if any changes. Summer Guillaume RN Date of Resolution: 08/31/2023 Time of Resolution 10:26 AM Home health RN from [facility] called in regards to pt. She is monitoring sugars and vitals. Has been caring for pt since 08/22. States pt has consistent 8/10 chest pain/discomfort. Denies SOB. Holding pillow to chest. 08/29- pt is still having 8/10 chest pain and is a constant pain. Incision looks good. He is walking and talking normally. Has oxy but only relieves pain 1 hr. Called home health RN. She is worried about pt and advised him to go to the ER. Pt refusing. Called pt to see how he was feeling. Still having excruciating pain 8/10. Advised pt to go to ER. Pt states not sure what they would be able to do for me. Wanted to wait over the weekend to see if the pain got any better. Pt still taking oxy and tylenol with no pain relief. Advised pt not to wait. Provided pt with [facility] nurse line number so he could voice his concerns with the pain he is still experiencing. Reiterated to pt if pain is persistent to go tot he ER. documented in this encounter [facility] 08-31-2023 Telephone encounter Note Home health RN from [facility] called in regards to pt. She is monitoring sugars and vitals. Has been caring for pt since 08/22. States pt has consistent 8/10 chest pain/discomfort. Denies SOB. Holding pillow to chest. 08/29- pt is still having 8/10 chest pain and is a constant pain. Incision looks good. He is walking and talking normally. Has oxy but only relieves pain 1 hr. Called home health RN. She is worried about pt and advised him to go to the ER. Pt refusing. Called pt to see how he was feeling. Still having excruciating pain 8/10. Advised pt to go to ER. Pt states not sure what they would be able to do for me. Wanted to wait over the weekend to see if the pain got any better. Pt still taking oxy and tylenol with no pain relief. Advised pt not to wait. Provided pt with [facility] nurse line number so he could voice his concerns with the pain he is still experiencing. Reiterated to pt if pain is persistent to go tot he ER. [facility] 08-27-2023 Telephone encounter Note We are calling to check on how you are doing since our last phone call. Are you having any medical concerns we can help you with today? -No new medical concerns today. Has a lot of incision site, has been using tylenol and ice, but doesn't take the edge off. States that it was manageable but he is having to use his oxycodone about every 4 hours and tylenol and ice packs. -Pain level is at 8.5/10 with medication in system. -Denies any s/s of infection at his incision site. Call Outcome: Routing to providing team for further follow up and intervention as pain medication management is not supportive enough for patient. Routing and closing statement given. PD RN verified patients name and date of . Hany Lewis RN [facility] 08-27-2023 Miscellaneous Notes We are calling to check on how you are doing since our last phone call. Are you having any medical concerns we can help you with today? -No new medical concerns today. Has a lot of incision site, has been using tylenol and ice, but doesn't take the edge off. States that it was manageable but he is having to use his oxycodone about every 4 hours and tylenol and ice packs. -Pain level is at 8.5/10 with medication in system. -Denies any s/s of infection at his incision site. Call Outcome: Routing to providing team for further follow up and intervention as pain medication management is not supportive enough for patient. Routing and closing statement given. PD RN verified patients name and date of . Hany Lewis RN documented in this encounter [facility] 08-23-2023 Telephone encounter Note 1. Have you noticed any increase in shortness of breath since you left the hospital? -No 2. Have you noticed any increased swelling in your feet , ankles, or stomach? (Skip for vascular pts) -No 3. Have you gained more than 2-3 pounds since discharge? (Skip for vascular & EP pts) -No 4. Have you noticed any change in your incision or wound since you were discharged? (as we want you to be aware of any signs of infection) -No 5. Are you having any increased pain since discharge? If yes: What type of pain and where? (pressure, sharp pain, dull pain, etc.) -Pain is still present at incision site and is using oxycodone. Encouraged pt to use oxycodone every 6 hours and possibly add OTC tylenol for in between his doses. Also encouraged pt to use an ice pack on or near his pain areas to help relieve some of the pain and help numb the area. Reiterated instructions to avoid any ointments, creams, salves on his incision. Encouraged to contact resource nurse line if no improvements. 6. Have you had any unplanned trips to the emergency department or hospital since you were discharged? If yes - why? -No 7. Do you have any questions about your medications? -No 8. Were you able to fill all of the prescribed medications? -Yes 9. Do you have a doctor s appointment scheduled or is someone working on getting you a follow-up appointment? -Yes All clear and closing statement given. RN verified patients name and date of . Hany eLwis RN [facility] 08-23-2023 Miscellaneous Notes 1. Have you noticed any increase in shortness of breath since you left the hospital? -No 2. Have you noticed any increased swelling in your feet , ankles, or stomach? (Skip for vascular pts) -No 3. Have you gained more than 2-3 pounds since discharge? (Skip for vascular & EP pts) -No 4. Have you noticed any change in your incision or wound since you were discharged? (as we want you to be aware of any signs of infection) -No 5. Are you having any increased pain since discharge? If yes: What type of pain and where? (pressure, sharp pain, dull pain, etc.) -Pain is still present at incision site and is using oxycodone. Encouraged pt to use oxycodone every 6 hours and possibly add OTC tylenol for in between his doses. Also encouraged pt to use an ice pack on or near his pain areas to help relieve some of the pain and help numb the area. Reiterated instructions to avoid any ointments, creams, salves on his incision. Encouraged to contact resource nurse line if no improvements. 6. Have you had any unplanned trips to the emergency department or hospital since you were discharged? If yes - why? -No 7. Do you have any questions about your medications? -No 8. Were you able to fill all of the prescribed medications? -Yes 9. Do you have a doctor s appointment scheduled or is someone working on getting you a follow-up appointment? -Yes All clear and closing statement given. PD [place] verified patients name and date of . Hany Lewis RN documented in this encounter [facility] 08-22-2023 Telephone encounter Note Record ID: [id number] Patient name: Erik Clarke Date: August 22, 2023 - 02:02 Administered by: HO Protocol: -> Great! Now we are in a secure chat environment. Protecting your health information is important to us. Ok, let's get started. Please verify your name and date of . Please click on the button with your first name. -> Erik Got it. On to the next question... Select the button with your last name. -> Vince Got it, thank you. Please enter your date of in MM/DD/YYYY format:(e.g., 05/11/1970 for May 11, 1970) -> 1955 Thank you for verifying your information. I'd like to ask you a few questions about how your recovery is going. Since leaving the hospital, do you have any new or worsening symptoms? -> Great! Now we are in a secure chat environment. Protecting your health information is important to us. Ok, let's get started. Please verify your name and date of . Please click on the button with your first name. -> Erik Got it. On to the next question... Select the button with your last name. -> Vince Got it, thank you. Please enter your date of in MM/DD/YYYY format:(e.g., 05/11/1970 for May 11, 1970) -> 1955 Thank you for verifying your information. I'd like to ask you a few questions about how your recovery is going. Since leaving the hospital, do you have any new or worsening symptoms? -> No [facility] 08-22-2023 Miscellaneous Notes Record ID: [id number] Patient name: Erik Clarke Date: August 22, 2023:02 Administered by: HO Protocol: -> Great! Now we are in a secure chat environment. Protecting your health information is important to us. Ok, let's get started. Please verify your name and date of . Please click on the button with your first name. -> Erik Got it. On to the next question... Select the button with your last name. -> Crebs Got it, thank you. Please enter your date of in MM/DD/YYYY format:(e.g., 05/11/1970 for May 11, 1970) -> 1955 Thank you for verifying your information. I'd like to ask you a few questions about how your recovery is going. Since leaving the hospital, do you have any new or worsening symptoms? -> Great! Now we are in a secure chat environment. Protecting your health information is important to us. Ok, let's get started. Please verify your name and date of . Please click on the button with your first name. -> Erik Got it. On to the next question... Select the button with your last name. -> Crebwen Got it, thank you. Please enter your date of in MM/DD/YYYY format:(e.g., 05/11/1970 for May 11, 1970) -> 1955 Thank you for verifying your information. I'd like to ask you a few questions about how your recovery is going. Since leaving the hospital, do you have any new or worsening symptoms? -> No documented in this encounter [facility] 08-15-2023 History of Present illness Narrative QOL Call Tracking Documentation Follow-Up Type: Phone Call Call Attempt: 1st Attempt Call Status: Patient will complete in MyChart documented in this encounter [facility] 08-15-2023 History of Present illness Narrative Cardiothoracic Anesthesiology Preoperative Assessment Service Date: 08/15/2023 Service Time: 10:01 AM Primary Care Physician: Denis Rivero MD Subjective Patient Entered Data: Scheduled procedure: Myectomy/AVR Surgeon: Carissa Scheduled date: 08/16/2023 HPI: 67 yo M pmhx of diabetes, HTN, HLD, HCOM, here for myectomy/AVR Held mounjaro for 12 days, jardiance for 4 days, brilinta 6 days, 1/2 long acting insulin, lisinopril Cont: carvedilol, rosuvastatin Review no known heparin intolerance anticoagulant/antiplatelet medication(s) - Patient is taking anticoagulant and/or antiplatelet medication with plans of stopping medication on 08/07 no non-cardiac IEDs present no known esophageal disorders blood transfusion consented - The blood products consent form not completed. No resulted type & screen to review COVID-19 Immunization Status Overdue - Covid-19 Vaccine (2022- season) Overdue since 12/22/2022 02/16/2022 Imm Admin: COVID-19 vaccine, age 12+ yr, bivalent (PFIZER-BIONTECH) 09/04/2021 Imm Admin: COVID-19 original vaccine, age 12+ yr, monovalent (PFIZER-BIONTECH - MABRY TOP) 03/21/2021 Imm Admin: COVID-19 original vaccine, age 12+ yr, monovalent (PFIZER-BIONTECH - PURPLE TOP) Only the first 3 history entries have been loaded, but more history exists. The patient has the following: ACTIVE PROBLEM LIST Type 2 Diabetes Mellitus With Both Eyes Affected By Mild Nonproliferative Retinopathy Without Macular Edema, With Long-Term Current Use of Insulin (Hcc) Hypertension Hyperlipidemia Benign Prostatic Hyperplasia With Lower Urinary Tract Symptoms Colon Polyps Erectile Dysfunction Prolapsed Lumbar Disc Stable Angina (Hcc) Chewing Tobacco Nicotine Dependence Without Complication Lumbar Spondylosis Ddd (Degenerative Disc Disease), Lumbar Lumbar Radiculopathy Bradycardia Nicotine use disorder, F17.2 Nonrheumatic Aortic (Valve) Stenosis Coronary Artery Disease Involving Ak Chin Coronary Artery of Ak Chin Heart Without Angina Pectoris Rotator Cuff Syndrome of Left Shoulder Obesity, Class I, Bmi 30-34.9 Status Post Insertion of Drug Eluting Coronary Artery Stent Hocm (Hypertrophic Obstructive Cardiomyopathy) ([facility]) Discharge Planning Issues Pre-Op Testing PAST MEDICAL HISTORY Diagnosis Date BPH (benign prostatic hypertrophy) with urinary retention 01/22/2012 Bradycardia ED (erectile dysfunction) Hyperlipidemia LDL goal < 100 01/22/2012 Hypertension 01/22/2012 Obesity Type 2 diabetes mellitus not at goal 01/22/2012 PAST SURGICAL HISTORY Procedure Laterality Date CARDIAC CATHETERIZATION HX 1999, 2004 no blockages, mildly leaky valve LEFT HEART CATH,PERCUTANEOUS 06/2022 stent placed PAST SURGICAL HISTORY OF 12/2015 L3-S1 laminectomy, decompression PAST SURGICAL HISTORY OF 01/16/2017 Lumbar reexploration L3-S1 with laminectomy and decompression FAMILY HISTORY Problem Relation Age of Onset Diabetes Mother Heart Father Diabetes Father Social History Tobacco Use Smoking status: Former Types: Cigarettes Quit date: 01/21/2010 Years since quittin.5 Smokeless tobacco: Current Types: Chew Tobacco comments: Patient states he has been chewing since he was younger - about a half can. Patient states it is the pouch type. Vaping Use Vaping Use: Never used Substance Use Topics Alcohol use: No Drug use: No Prior to Admission medications as of 08/15/23 0833 Medication Sig Last Dose Taking mupirocin (BACTROBAN) 2 % ointment Apply a small amount in each nostril using a cotton swab twice the day before surgery and once the morning of surgery. BRILINTA 90 mg tablet take 1 tablet twice a day chlorthalidone (HYGROTON) 25 mg tablet Take 1 tablet by mouth once daily. metFORMIN ER (GLUCOPHAGE XR) 500 mg 24 hr tablet TAKE 2 TABLETS 2 TIMES DAILY WITH MEALS tirzepatide (MOUNJARO) 7.5 mg/0.5 mL pen injector Inject 7.5 mg subcutaneously one time a week. carvedilol (COREG) 25 mg tablet Take 1 tablet by mouth two times a day. lisinopril (ZESTRIL) 5 mg tablet Take 1 tablet by mouth once daily. insulin glargine U-300 conc (TOUJEO SOLOSTAR U-300 INSULIN) 300 unit/mL (1.5 mL) Inject 48 Units subcutaneously once daily. BD ULTRAFINE III MINI PEN 31 gauge x 3/16 USE AND DISCARD 1 PEN NEEDLE ONCE DAILY WITH INSULIN PEN Blood Pressure Monitor Use to monitor blood pressure empagliflozin (JARDIANCE) 10 mg tablet Take 1 tablet by mouth daily with breakfast. Blood-Glucose Meter,Continuous (DEXCOM G7 GENERATOR ASSEMBLER) misc Use continuously to monitor glucose, IDDM, E 11.3293 Blood-Glucose Sensor (DEXCOM G7 SENSOR) yesenia Use one sensor every 10 days, IDDM, E 11.3293 rosuvastatin (CRESTOR) 10 mg tablet TAKE 1 TABLET ONCE DAILY sildenafil (VIAGRA) 100 mg tablet Take 1 tablet by mouth as needed. 30-60 minutes before sexual intercourse. Patient not taking: Reported on 07/16/2023 blood sugar diagnostic (ACCU-CHEK LATIA PLUS TEST STRP) test strip Use to test blood sugars up to twice daily when CGM reading seems inaccurate. Insulin-dependent diabetes, E11.9 aspirin, enteric coated (ECOTRIN LOW STRENGTH) 81 mg EC tablet Take 1 tablet by mouth once daily. Lancets lancets Use as instructed to test glucose 2 times daily. No medication comments found. ALLERGIES No Known Allergies Objective Pain Assessment: Vitals: There were no vitals taken for this visit. Diagnostic tests reviewed for today's visit: Lab Value Units Date High Low HB 14.9 g/dL 08/15/2023 17.0 13.0 HCT 46.0 % 08/15/2023 51.0 39.0 WBC 8.69 k/uL 08/15/2023 11.00 3.70 PLT 246 k/uL 08/15/2023 400 150 NA 138 mmol/L 05/14/2023 144 136 K 3.6 mmol/L 05/14/2023 5.1 3.7 GLUC 136 mg/dL 05/14/2023 99 74 BUN 10 mg/dL 05/14/2023 24 9 CREAT 0.77 mg/dL 05/14/2023 1.22 0.73 PTSEC 10.2 sec 08/15/2023 13.0 9.7 INR 1.0 no uni* 08/15/2023 1.3 0.9 APTT 28.2 sec 08/15/2023 32.4 23.0 ALT No results within date range. AST No results within date range. TBILI No results within date range. TSH No results within date range. Lab Value Units Date High Low HCGQT No results within date range. UHCG No results within date range. HCG, BODY* No results within date range. Lab Value Units Date High Low ABORHD No results within date range. ABSCREEN No results within date range. Hemoglobin A1C (%) Date Value 11/14/2022 7.7 07/03/2022 7.8 05/12/2022 7.8 06/09/2021 7.8 02/02/2021 7.3 04/05/2020 9.1 03/14/2019 8.4 08/24/2018 8.0 02/25/2018 8.7 08/24/2017 8.4 Hemoglobin A1C (POCT) (%) Date Value 12/13/2021 7.9 11/03/2019 9.0 Recent Results (from the past 8760 hour(s)) ECG COMPLETE Collection Time: 08/15/23 7:27 AM Impression NORMAL SINUS RHYTHM LEFT AXIS DEVIATION MINIMAL VOLTAGE CRITERIA FOR LVH, MAY BE NORMAL VARIANT ( [place] product ) ANTEROSEPTAL MYOCARDIAL INFARCTION , AGE UNDETERMINED ABNORMAL ECG ECHO Collection Time: 03/19/23 9:36 AM Impression CONCLUSIONS: - Technically difficult exam due to lung interference. - Exam indication: - The left ventricle is normal in size. There is mild concentric left ventricular hypertrophy. Left ventricular systolic function is normal. EF = 58 5% (2D 4-ch.) Grade I left ventricular diastolic dysfunction. - The right ventricle is normal in size. Right ventricular systolic function is normal. - The left atrial cavity is mildly dilated. - There is severe aortic valve stenosis caused by calcified valve and restricted opening. AV area is 1.16 cm (0.55 cm /m ) by continuity VTI, and 1.01cm2 by planimetry. Peak AV velocity is 3.99m/s. The peak gradient is 70 mmHg, the mean gradient is 43 mmHg and the dimensionless valve index is 0.35. - At rest (77 bpm) there is TRELL with near septal contact, trivial MR, and a peak LVOT gradient of 15 mmHg. - With Valsalva (75 bpm) there is TRELL with septal contact, trivial MR, and a peak LVOT gradient of 29 mmHg. - Amyl not used due to aortic stenosis. - Ascending aorta measures 3.5cm. - Exam was compared with the prior echocardiographic exam performed on 07/06/2022 ([facility]). Peak AV velocity was 4 m/s. Peak/mean AV gradients were 66/38mmHg respectively in 06/2022. MAIRA was 1.03cm2 by continuity. DI was 0.3. * * * Final * * * Assessment No problem-specific Assessment & Plan notes found for this encounter. ANESTHESIA FINDINGS: Intubation History: No history of difficult intubation Significant Anesthesia Considerations: none Airway History: No history of difficult airway Prepared for Surgery: The Following Tests/Procedures Have Been Initiated: Orders Placed This Encounter mupirocin (BACTROBAN) 2 % ointment Sig: Apply a small amount in each nostril using a cotton swab twice the day before surgery and once the morning of surgery. Dispense: 22 g Refill: 0 Order Comments: Supply patient with Q-tips and instruction sheet ASA Class: 4 Planned Anesthetic: general I - PHYSICAL EVALUATION AIRWAY Patient intubated: No. Tracheostomy tube not present Mallampati: II. TM distance: >3 FB. Neck ROM: full ROM without neurological symptoms. Mouth opening: adequate. Short neck: yes. Thick neck: yes Bray present: yes Microretrognathia/Micronagthia/Rec essed Chin: Yes DENTAL Dental findings: edentulous. Dentures, upper: complete. Dentures, lower: complete. II - ANESTHESIA PLAN ASA Score: 4 Anesthetic Plan: general Airway type: ETT Beta Eduardo Monitoring Plan Post Procedure Analgesic Plan Informed Consent Anesthetic risks, benefits, alternatives, personnel and consent discussed: yes. Patient / Responsible Alliance Party agrees to proceed: yes Patient / Surrogate agrees to blood products: Yes Discussed the possibility of lip / dental damage: yes Instructions Given to Patient: Instructions located in the after visit summary. Patient given verbal and written preop instructions and voices comprehension and compliance. Signature: Malka Holden MD Patient Name: Erik Clarke Date: August 15, 2023 Time: 10:01 AM Pager/Contact #: documented in this encounter [facility] 08-15-2023 History of Present illness Narrative Thoracic and Cardiovascular Surgery [facility] SURGICAL CONSULT AND INFORMED CONSENT CHART COPY DO NOT DISCARD Patient Type: New Visit to determine Surgery: Yes PCP: Denis Rivero [address] [place] [address] Referring Physician:: Robert Ferrer [address] [place] [address] HPI: Mr. Erik Clarke is a 67 year old male seen in consultation at the request of Robert Ferrer for an opinion regarding treatment options for Aortic Stenosis and Hypertrophic Obstructive Cardiomyopathy. He is currently symptomatic and complains of shortness of breath and dyspnea on exertion. Comorbidities include HTN. I have personally reviewed his cardiac catheterization which shows mild non-obstructive coronary artery disease. Echocardiogram reveals normal ventricular function and aortic stenosis and moderate basal left ventricular hypertrophy and left ventricular outflow tract obstruction. Septum measure 1.6 cm Labs: wnl EKG: NSR Impression: aortic stenosis with left ventricular outflow tract obstruction Plan: aortic valve replacement with tissue valve and myectomy These findings will be communicated back to the requesting physician via electronic medical record Robert Ferrer MD documented in this encounter [facility] 08-15-2023 History of Present illness Narrative AMBULATORY PATIENT EDUCATION READINESS TO LEARN Cognitive Ability: Alert and oriented Motivation To Learn: Interested Family Support: High - Very involved in pt care Instruction Provided To: Patient & Family Patient Learns Best By: Multiple Methods Factors Affecting Learning: None Physical Limitations Affecting Learning: None LEARNING RESPONSE Diagnosis: HOCM Education Topic: Pre-Op Open Heart Surgery Instructions Teaching Points: Logistics / Protocols /Complication Prevention Instruction/Supplemental Materials: Cardiac Surgery Information Binder Individual Instruction Patient/Family Response: Somewhat Follow up plan: Patient/Family to call [facility] with any further questions Referral (Recommendation): None Teach completed, topic: Patient educated to report to [facility]2 for check in for upcoming surgery on 08/16/2023 documented in this encounter [facility] 08-15-2023 History and physical note Images from the original note were not included. [facility] PRE-OPERATIVE HISTORY & PHYSICAL SERVICE DATE: 08/15/2023 SERVICE TIME: 8:52 AM Erik Clarke Proposed Surgery: Myectomy, AVR Surgery Date: 08/16/23 Cardiothoracic Surgeon: Robert Ferrer M.D. HISTORY OF PRESENT ILLNESS: Erik Clarke is a 67 year old male who presents to the [facility] office for pre-op surgical evaluation prior to scheduled OHS with Dr. Ferrer. Mr. Clarke has a past medical history of coronary artery disease with stenting to the circumflex in June 2022, bradycardia, hyperlipidemia, hypertension, BPH w urinary retention 2020, diabetes type 2, and aortic valve stenosis. Patient has complaints of chest pain with stair climbing and shortness of breath and lightheadedness with exertion. His symptoms have been progressing over the past 6 months. He has a past medical history of BPH (benign prostatic hypertrophy) with urinary retention (01/22/2012), Bradycardia, ED (erectile dysfunction), Hyperlipidemia LDL goal < 100 (01/22/2012), Hypertension (01/22/2012), Obesity, and Type 2 diabetes mellitus not at goal (01/22/2012). [place] [facility], walks 1 mile 5 days a week, w HERNANDEZ climbing 1-2 flights steps. Held mounjaro for 12 days, jardiance, metformin for 4 days, brilinta 6 days, 1/2 long acting insulin, lisinopril [facility] 05/15/23 Impression:Mild coronary artery disease with patent stent in OM1. Peak to peak gradient across the aortic valve 74mmHg. Unable to tell if this is LVOT vs heydi and LVOT combination. Echo 03/19/23 CONCLUSIONS: - Technically difficult exam due to lung interference. - Exam indication: - The left ventricle is normal in size. There is mild concentric left ventricular hypertrophy. Left ventricular systolic function is normal. EF = 58 5% (2D 4-ch.) Grade I left ventricular diastolic dysfunction. - The right ventricle is normal in size. Right ventricular systolic function is normal. - The left atrial cavity is mildly dilated. - There is severe aortic valve stenosis caused by calcified valve and restricted opening. AV area is 1.16 cm (0.55 cm /m ) by continuity VTI, and 1.01cm2 by planimetry. Peak AV velocity is 3.99m/s. The peak gradient is 70 mmHg, the mean gradient is 43 mmHg and the dimensionless valve index is 0.35. - At rest (77 bpm) there is TRELL with near septal contact, trivial MR, and a peak LVOT gradient of 15 mmHg. - With Valsalva (75 bpm) there is TRELL with septal contact, trivial MR, and a peak LVOT gradient of 29 mmHg. - Amyl not used due to aortic stenosis. - Ascending aorta measures 3.5cm. - Exam was compared with the prior echocardiographic exam performed on 07/06/2022 ([facility]). Peak AV velocity was 4 m/s. Peak/mean AV gradients were 66/38mmHg respectively in 06/2022. MAIRA was 1.03cm2 by continuity. DI was 0.3. REVIEW OF SYSTEMS: A complete 10 point ROS was performed and is negative except for what is documented in the HPI. PHYSICAL EXAM: Constitutional: Well developed and Well nourished HEENT: PERRLA, EOM's intact, Dentures, Incisions - no, JVD - no, and Bruits - no Resp: Wheezing bilaterally w forced expiration. Cardiovascular: Regular rate & rhythm, Murmur , S1, S2 normal, and Pulses 2+ R/L leg GI: Soft, Round, Non-tender, and Organomegaly - no Integumentary: Warm and Dry Musculoskeletal: No deformities Neurological/Psychiatric: Oriented to time, place & person and Alert Additional systems reviewed: No additional systems reviewed HOME PERFORMANCE LABORER / PA NOTE OF PERSONAL INVOLVEMENT IN CARE: I have interviewed the patient and updated the RN's PMFS history, and ROS as necessary. CTA notified of forced expiratory wheezing on exam I have performed the HPI, Physical Examination, and agree with the current assessment and plan as noted. SIGNATURE: Blaise Parks PA-C PATIENT NAME: Erik Clarke DATE: August 15, 2023 TIME: 8:52 AM T [facility] 08-15-2023 History and physical note Images from the original note were not included. [facility] PRE-OPERATIVE HISTORY & PHYSICAL SERVICE DATE: 08/15/2023 SERVICE TIME: 8:52 AM Erik Clarke Proposed Surgery: Myectomy, AVR Surgery Date: 08/16/23 Cardiothoracic Surgeon: Robert Ferrer M.D. HISTORY OF PRESENT ILLNESS: Erik Clarke is a 67 year old male who presents to the [facility] office for pre-op surgical evaluation prior to scheduled OHS with Dr. Ferrer. Mr. Clarke has a past medical history of coronary artery disease with stenting to the circumflex in June 2022, bradycardia, hyperlipidemia, hypertension, BPH w urinary retention 2020, diabetes type 2, and aortic valve stenosis. Patient has complaints of chest pain with stair climbing and shortness of breath and lightheadedness with exertion. His symptoms have been progressing over the past 6 months. He has a past medical history of BPH (benign prostatic hypertrophy) with urinary retention (01/22/2012), Bradycardia, ED (erectile dysfunction), Hyperlipidemia LDL goal < 100 (01/22/2012), Hypertension (01/22/2012), Obesity, and Type 2 diabetes mellitus not at goal (01/22/2012). [place] [facility], walks 1 mile 5 days a week, w HERNANDEZ climbing 1-2 flights steps. Held mounjaro for 12 days, jardiance, metformin for 4 days, brilinta 6 days, 1/2 long acting insulin, lisinopril [facility] 05/15/23 Impression:Mild coronary artery disease with patent stent in OM1. Peak to peak gradient across the aortic valve 74mmHg. Unable to tell if this is LVOT vs heydi and LVOT combination. Echo 03/19/23 CONCLUSIONS: - Technically difficult exam due to lung interference. - Exam indication: - The left ventricle is normal in size. There is mild concentric left ventricular hypertrophy. Left ventricular systolic function is normal. EF = 58 5% (2D 4-ch.) Grade I left ventricular diastolic dysfunction. - The right ventricle is normal in size. Right ventricular systolic function is normal. - The left atrial cavity is mildly dilated. - There is severe aortic valve stenosis caused by calcified valve and restricted opening. AV area is 1.16 cm (0.55 cm /m ) by continuity VTI, and 1.01cm2 by planimetry. Peak AV velocity is 3.99m/s. The peak gradient is 70 mmHg, the mean gradient is 43 mmHg and the dimensionless valve index is 0.35. - At rest (77 bpm) there is TRELL with near septal contact, trivial MR, and a peak LVOT gradient of 15 mmHg. - With Valsalva (75 bpm) there is TRELL with septal contact, trivial MR, and a peak LVOT gradient of 29 mmHg. - Amyl not used due to aortic stenosis. - Ascending aorta measures 3.5cm. - Exam was compared with the prior echocardiographic exam performed on 07/06/2022 ([facility]). Peak AV velocity was 4 m/s. Peak/mean AV gradients were 66/38mmHg respectively in 06/2022. MAIRA was 1.03cm2 by continuity. DI was 0.3. REVIEW OF SYSTEMS: A complete 10 point ROS was performed and is negative except for what is documented in the HPI. PHYSICAL EXAM: Constitutional: Well developed and Well nourished HEENT: PERRLA, EOM's intact, Dentures, Incisions - no, JVD - no, and Bruits - no Resp: Wheezing bilaterally w forced expiration. Cardiovascular: Regular rate & rhythm, Murmur , S1, S2 normal, and Pulses 2+ R/L leg GI: Soft, Round, Non-tender, and Organomegaly - no Integumentary: Warm and Dry Musculoskeletal: No deformities Neurological/Psychiatric: Oriented to time, place & person and Alert Additional systems reviewed: No additional systems reviewed HOME PERFORMANCE LABORER / PA NOTE OF PERSONAL INVOLVEMENT IN CARE: I have interviewed the patient and updated the RN's PMFS history, and ROS as necessary. CTA notified of forced expiratory wheezing on exam I have performed the HPI, Physical Examination, and agree with the current assessment and plan as noted. SIGNATURE: Blaise Parks PA-C PATIENT NAME: Erik Clarke DATE: August 15, 2023 TIME: 8:52 AM documented in this encounter [facility] 08-15-2023 History of Present illness Narrative CHART COPY-DO NOT DISCARD CARDIOVASCULAR SURGERY PRE-OPERATIVE ASSESSMENT NAME: Erik Clarke Alert Notes: DATE: 08/15/2023 SEX: male : 1955 AGE: [age] year old Estimated body mass index is 30.24 kg/m as calculated from the following: Height as of 07/16/23: 172.7 cm (5' 8). Weight as of 07/16/23: 90.2 kg (198 lb 13.7 oz). Patient scheduled for surgery on: 08/16/2023 [facility] MD: Dr. Coco Barron CHIEF COMPLAINT: Pre-Op Open Heart Surgery MEDICATIONS: Current Outpatient Medications Medication Sig BRILINTA 90 mg tablet take 1 tablet twice a day chlorthalidone (HYGROTON) 25 mg tablet Take 1 tablet by mouth once daily. metFORMIN ER (GLUCOPHAGE XR) 500 mg 24 hr tablet TAKE 2 TABLETS 2 TIMES DAILY WITH MEALS tirzepatide (MOUNJARO) 7.5 mg/0.5 mL pen injector Inject 7.5 mg subcutaneously one time a week. carvedilol (COREG) 25 mg tablet Take 1 tablet by mouth two times a day. lisinopril (ZESTRIL) 5 mg tablet Take 1 tablet by mouth once daily. insulin glargine U-300 conc (TOUJEO SOLOSTAR U-300 INSULIN) 300 unit/mL (1.5 mL) Inject 48 Units subcutaneously once daily. BD ULTRAFINE III MINI PEN 31 gauge x 3/16 USE AND DISCARD 1 PEN NEEDLE ONCE DAILY WITH INSULIN PEN Blood Pressure Monitor Use to monitor blood pressure empagliflozin (JARDIANCE) 10 mg tablet Take 1 tablet by mouth daily with breakfast. Blood-Glucose Meter,Continuous (DEXCOM G7 GENERATOR ASSEMBLER) [facility] [place] continuously to monitor glucose, IDDM, E 11.3293 Blood-Glucose Sensor (DEXCOM G7 SENSOR) [place] Use one sensor every 10 days, IDDM, E 11.3293 rosuvastatin (CRESTOR) 10 mg tablet TAKE 1 TABLET ONCE DAILY sildenafil (VIAGRA) 100 mg tablet Take 1 tablet by mouth as needed. 30-60 minutes before sexual intercourse. (Patient not taking: Reported on 07/16/2023) blood sugar diagnostic (ACCU-CHEK LATIA PLUS TEST STRP) test strip Use to test blood sugars up to twice daily when CGM reading seems inaccurate. Insulin-dependent diabetes, E11.9 aspirin, enteric coated (ECOTRIN LOW STRENGTH) 81 mg EC tablet Take 1 tablet by mouth once daily. Lancets lancets Use as instructed to test glucose 2 times daily. Current Facility-Administered Medications Medication Dose Route Frequency perflutren lipid microspheres 1.3 mL in NaCl (PF) 0.9% 10 mL injection (DEFINITY) INTRAVENOUS DIRECTED PRN sodium chloride 0.9 % (flush) 10 mL (BD POSIFLUSH) 10 mL INTRAVENOUS DIRECTED PRN ALLERGIES: ALLERGIES No Known Allergies LATEX ALLERGY: No FOOD SENSITIVITIES: No ANTICOAGULANTS: 08/09/2023 briltinta STEROIDS: No HISTORIES: FAMILY HISTORY Problem Relation Age of Onset Diabetes Mother Heart Father Diabetes Father PAST MEDICAL HISTORY Diagnosis Date BPH (benign prostatic hypertrophy) with urinary retention 01/22/2012 Bradycardia ED (erectile dysfunction) Hyperlipidemia LDL goal < 100 01/22/2012 Hypertension 01/22/2012 Obesity Type 2 diabetes mellitus not at goal 01/22/2012 PAST SURGICAL HISTORY Procedure Laterality Date CARDIAC CATHETERIZATION HX 1999, 2004 no blockages, mildly leaky valve LEFT HEART CATH,PERCUTANEOUS 06/2022 stent placed PAST SURGICAL HISTORY OF 12/2015 L3-S1 laminectomy, decompression PAST SURGICAL HISTORY OF 01/16/2017 Lumbar reexploration L3-S1 with laminectomy and decompression Social History Tobacco Use Smoking status: Former Types: Cigarettes Quit date: 01/21/2010 Years since quittin.5 Smokeless tobacco: Current Types: Chew Tobacco comments: Patient states he has been chewing since he was younger - about a half can. Patient states it is the pouch type. Vaping Use Vaping Use: Never used Substance Use Topics Alcohol use: No Drug use: No REVIEW OF SYSTEMS: GEN: Denies Complaints HEENT: Cataract Surgery bilat 2019, Glasses, Dental Clearance edentulous DERM: Denies Dermatological Complaints CARDIOLOGY PHYSICIAN: Denies Neurological Complaints RESP: Denies Respiratory Complaints CARD: HOCM, HTN, Mod , Stent 06/2022 to LCX GI: Denies Gastrointestinal Complaints : BPH does not take medication at this time ENDO: Type 2 Diabetes HEME: HLD MUSC/SKEL: laminectomy/decompression L3-S1 2017 PVD: Denies PVD Varicose Veins: No BRUITS (Carotid): see cards note PULSES: Pedal Left 2 Right 2 NYHA CLASSIFICATION: Class 2 FAMILY HISTORY OF CAD: Yes father ? PERFUSION INDEX: NA Pacer Check: NA CARDIAC EVALUATION: Cardiac Cath: Date - 05/15/2023 Ultrasound: Date - na PFT: Date - na ECHO: Last ECHO Result Conclusion ECHO Collected: 03/19/2023 9:36 AM (Final result) Impression: CONCLUSIONS: - Technically difficult exam due to lung interference. - Exam indication: - The left ventricle is normal in size. There is mild concentric left ventricular hypertrophy. Left ventricular systolic function is normal. EF = 58 5% (2D 4-ch.) Grade I left ventricular diastolic dysfunction. - The right ventricle is normal in size. Right ventricular systolic function is normal. - The left atrial cavity is mildly dilated. - There is severe aortic valve stenosis caused by calcified valve and restricted opening. AV area is 1.16 cm (0.55 cm /m ) by continuity VTI, and 1.01cm2 by planimetry. Peak AV velocity is 3.99m/s. The peak gradient is 70 mmHg, the mean gradient is 43 mmHg and the dimensionless valve index is 0.35. - At rest (77 bpm) there is TRELL with near septal contact, trivial MR, and a peak LVOT gradient of 15 mmHg. - With Valsalva (75 bpm) there is TRELL with septal contact, trivial MR, and a peak LVOT gradient of 29 mmHg. - Amyl not used due to aortic stenosis. - Ascending aorta measures 3.5cm. - Exam was compared with the prior echocardiographic exam performed on 07/06/2022 ([facility]). Peak AV velocity was 4 m/s. Peak/mean AV gradients were 66/38mmHg respectively in 06/2022. MAIRA was 1.03cm2 by continuity. DI was 0.3. * * * Final * * * CT Scan: Last CT Result Conclusion CTA CHEST (GATED) WO/W IVCON Exam End: 04/05/2023 9:32 AM (Final result) Impression: IMPRESSION: 1. Severe aortic valve stenosis. Details of anatomy and Measurements are described below. 2. Normal thoracic and abdominal aorta. No acute aortic pathology. 3. The pelvic arteries, including the common femoral arteries are normal in course, caliber, and contour , severe calcification of the pelvic arteries. The minimal luminal caliber throughout = 0.8 cm. 4. Aortic valve orifice area = 0.8 cm2 , Aortic valve calcium score is 1681 and Aortic annulus cross-sectional area: 5.71 cm2. 5. Noncardiovascular findings as described in body of the report. Drying Can Worker: ANDREW Transcribe Date/Time: Apr 08 2023 10:26A Dictated by : ANDERSON PACE MD This examination was interpreted and the report reviewed and electronically signed by: ANDERSON PACE MD on Apr 09 2023 8:59AM EST MRI: Last MRI Result Conclusion MRI CARDIAC VELOCITY FLOW MAP Exam End: 06/27/2023 1:09 PM (Final result) Impression: IMPRESSION: - The left ventricle is normal in size (LV EDVi = 70 ml/m ). The left ventricular systolic function is normal (LV EF = 57 %). Diastolic septal contact of the anterior mitral leaflet is seen, but there is no systolic anterior motion of the anterior mitral leaflet. Chordal systolic anterior motion is seen. Flow dephasing is noted in the left ventricular outflow tract, on phase velocity mapping sequences,suggesting left ventricular outflow tract obstruction. - The right ventricle is normal in size (RV EDVi = 65 ml/m ). The right ventricular systolic function is normal (RV EF = 61 %). - Late gadolinium enhancement (LGE) sequences indicated the presence of diffuse mid myocardial, epicardial LGE involving the septal, anterior, inferior and lateral nguyễn of the left ventricle. The LGE involves 8% of the left ventricular myocardium, and the pattern does not support a diagnosis of hypertrophic cardiomyopathy. The pattern is more suggestive of pressure overload conditions such as uncontrolled hypertension/aortic stenosis. The extracevllular volume is within normal limits at 24%, arguing against cardiac amyloidosis. - Aortic valve leaflets are moderately thickened and calcified. The aortic valve area has been measured at 1.1 cm . Findings suggest moderate aortic stenosis. Mild central aortic insufficiency is seen. Regurgitant volume = 5 cc, regurgitant fraction = 6%. - The patient has not had a prior CC cardiac MR exam for comparison. * * * Final * * * RP Drying Can Worker: SERA Transcribe Date/Time: Jun 27 2023 11:17A Dictated by : VICENTE MOSS MD This examination was interpreted and the report reviewed and electronically signed by: VICENTE MOSS MD on Jun 27 2023 10:54PM EST CXR: 08/15/2023 EKG: Last EKG Result Conclusion ECG COMPLETE Collected: 08/15/2023 7:27 AM (Preliminary result) Impression: NORMAL SINUS RHYTHM LEFT AXIS DEVIATION MINIMAL VOLTAGE CRITERIA FOR LVH, MAY BE NORMAL VARIANT ( [place] product ) ANTEROSEPTAL MYOCARDIAL INFARCTION , AGE UNDETERMINED ABNORMAL ECG Dental: Cleared edentulous ? No results for input(s): WBC, HB, HCT, PLT, INR, APTT, PTSEC, NA, K, BUN, CREAT, UWBC, URBC, ABORHD, CHOL, HDL, LDL, HCGQT in the last 168 hours. Invalid input(s): ABOSCREEN Pre Op Instructions per protocol reviewed and handout given to patient . Patient Education completed and documented. Instructed to start Bactroban per protocol. Emotional support provided to patient and family. All questions and concerns adressed. Signature: Angelica Rice RN See Cardiology History and Physical dated 08/15/2023 documented in this encounter [facility] 08-15-2023 History of Present illness Narrative Radiology Service Progress Note PATIENT NAME: Erik Clarke DATE OF SERVICE: August 15, 2023 TIME: 7:38 AM PATIENT IDENTITY VERIFICATION COMPLETED USING TWO (2) IDENTIFIERS: Name and Date of confirmed by patient verbally. FALL SCREENING: Has the patient had 2 falls in the last year or 1 fall with injury or currently using an Ambulatory Assistive Device (Walker, Cane, Wheelchair, Crutches, etc.)? No PATIENT GENDER DATA: Male PATIENT RELEVANT IMPLANT DATA REVIEWED: Not Applicable PATIENT PRESENTS WITH AN IMPLANTABLE OR ATTACHED GARAGE ATTENDANT: Yes Dexcom SHIELDED RADIOLOGY DEPARTMENT: General X-ray: Exam(s) Completed: Chest X-Ray PERIPHERAL IV DATA: Not applicable SIGNED BY: RT Lin(R) August 15, 2023 7:38 AM documented in this encounter [facility] 08-14-2023 History of Present illness Narrative QOL Call Tracking Documentation Follow-Up Type: Phone Call Call Attempt: 1st Attempt Call Status: Left Message (Left voicemail at phone number listed in EPIC.) documented in this encounter [facility] 08-06-2023 Miscellaneous Notes GEORGES: 07/16/2023 Arian NOV: 09/18/2023 Arian documented in this encounter [facility] 07-16-2023 Note HNO ID: [id number] Author: BURKE BARRON, DO Service: ? Author Type: Physician Type: Progress Notes Filed: 07/16/2023 17:11 Note Text: [facility]OLOG[facility] OUTPATIENT VISIT DATE July 16, 2023 PRIMARY CARE PHYSICIAN: Denis [address] [place] [address] HISTORY OF PRESENT ILLNESS: Mr. Clarke is a 67 year old male. The patient returns for follow-up second history of medical disease status post stenting with moderate aortic stenosis and findings of hypertrophic obstructive cardiomyopathy who is pending surgery for myomectomy and aortic valve replacement. Additional history includes hypertension, hyperlipidemia and diabetes. Recent testing demonstrates patency of his valve. He admits to dyspnea with moderate exertion. He denies anginal sounding chest discomfort, orthopnea, paroxysmal nocturnal dyspnea, palpitations, near-syncope or syncope. PLAN AND RECOMMENDATIONS: The patient overall is stable without changes in his symptoms regarding his obstruction. He has no changes in symptoms of suggest angina or cardiac decompensation overall as well. Heart rate, blood pressure recent cholesterol profile are favorable as well. We have therefore made no additions or changes. Dietary and lifestyle modification was reemphasized to facilitate risk factor reduction. Will look forward to reevaluating him following his open heart procedure. Vitals: BP 118/62 Pulse 76 Ht 172.7 cm (5' 8) Wt 90.2 kg (198 lb 13.7 oz) SpO2 98% BMI 30.24 kg/m? Physical Exam Vitals reviewed. Constitutional: General: He is not in acute distress. Appearance: He is well-developed. He is not diaphoretic. HENT: Head: Normocephalic and atraumatic. Right Ear: External ear normal. Left Ear: External ear normal. Nose: Nose normal. Eyes: General: No scleral icterus. Right eye: No discharge. Left eye: No discharge. Pupils: Pupils are equal, round, and reactive to light. Neck: Thyroid: No thyromegaly. Vascular: No JVD. Cardiovascular: Rate and Rhythm: Normal rate and regular rhythm. Heart sounds: Murmur heard. Crescendo decrescendo systolic murmur is present with a grade of 2/6. No friction rub. No gallop. Pulmonary: Effort: Pulmonary effort is normal. No respiratory distress. Breath sounds: Normal breath sounds. No wheezing or rales. Abdominal: General: Bowel sounds are normal. Palpations: Abdomen is soft. Musculoskeletal: General: Normal range of motion. Cervical back: Neck supple. Skin: General: Skin is warm and dry. Coloration: Skin is not pale. Neurological: Mental Status: He is alert and oriented to person, place, and time. Cranial Nerves: No cranial nerve deficit. Psychiatric: Mood and Affect: Mood is not anxious or depressed. Behavior: Behavior normal. Thought Content: Thought content normal. Judgment: Judgment normal. Review of Systems Constitutional: Positive for fatigue. Negative for activity change, appetite change and unexpected weight change. HENT: Negative for ear pain and trouble swallowing. Eyes: Negative for pain and visual disturbance. Respiratory: Positive for shortness of breath. Negative for chest tightness. Cardiovascular: Positive for chest pain (fleeting at rest for 5-6 seconds, atypical). Negative for palpitations and leg swelling. Gastrointestinal: Negative for abdominal pain and blood in stool. Endocrine: Negative for cold intolerance and heat intolerance. Genitourinary: Negative for dysuria, hematuria and scrotal swelling. Musculoskeletal: Negative for arthralgias and myalgias. Skin: Negative for pallor and rash. Allergic/Immunologic: Negative for immunocompromised state. Neurological: Negative for dizziness, syncope and light-headedness. Hematological: Negative for adenopathy. Does not bruise/bleed easily. Psychiatric/Behavioral: Negative for sleep disturbance. The patient is not nervous/anxious. PAST MEDICAL HISTORY Diagnosis Date BPH (benign prostatic hypertrophy) with urinary retention 01/22/2012 Bradycardia ED (erectile dysfunction) Hyperlipidemia LDL goal < 100 01/22/2012 Hypertension 01/22/2012 Obesity Type 2 diabetes mellitus not at goal 01/22/2012 PAST SURGICAL HISTORY Procedure Laterality Date CARDIAC CATHETERIZATION HX 1999, 2004 no blockages, mildly leaky valve LEFT HEART CATH,PERCUTANEOUS 06/2022 stent placed PAST SURGICAL HISTORY OF 12/2015 L3-S1 laminectomy, decompression PAST SURGICAL HISTORY OF 01/16/2017 Lumbar reexploration L3-S1 with laminectomy and decompression Social History Tobacco Use Smoking status: Former Types: Cigarettes Quit date: 01/21/2010 Years since quittin.4 Smokeless tobacco: Current Types: Chew Tobacco comments: Patient states he has been chewing since he was younger - about a half can. Patient states it is the pouch type. Va (more content not included)... [facility] 07-16-2023 History of Present illness Narrative Images from the original note were not included. [facility] OUTPATIENT VISIT DATE July 16, 2023 PRIMARY CARE PHYSICIAN: Denis Quezada [place] [id number] HISTORY OF PRESENT ILLNESS: Mr. Clarke is a 67 year old male. The patient returns for follow-up second history of medical disease status post stenting with moderate aortic stenosis and findings of hypertrophic obstructive cardiomyopathy who is pending surgery for myomectomy and aortic valve replacement. Additional history includes hypertension, hyperlipidemia and diabetes. Recent testing demonstrates patency of his valve. He admits to dyspnea with moderate exertion. He denies anginal sounding chest discomfort, orthopnea, paroxysmal nocturnal dyspnea, palpitations, near-syncope or syncope. PLAN AND RECOMMENDATIONS: The patient overall is stable without changes in his symptoms regarding his obstruction. He has no changes in symptoms of suggest angina or cardiac decompensation overall as well. Heart rate, blood pressure recent cholesterol profile are favorable as well. We have therefore made no additions or changes. Dietary and lifestyle modification was reemphasized to facilitate risk factor reduction. Will look forward to reevaluating him following his open heart procedure. Vitals: BP 118/62 Pulse 76 Ht 172.7 cm (5' 8) Wt 90.2 kg (198 lb 13.7 oz) SpO2 98% BMI 30.24 kg/m Physical Exam Vitals reviewed. Constitutional: General: He is not in acute distress. Appearance: He is well-developed. He is not diaphoretic. HENT: Head: Normocephalic and atraumatic. Right Ear: External ear normal. Left Ear: External ear normal. Nose: Nose normal. Eyes: General: No scleral icterus. Right eye: No discharge. Left eye: No discharge. Pupils: Pupils are equal, round, and reactive to light. Neck: Thyroid: No thyromegaly. Vascular: No JVD. Cardiovascular: Rate and Rhythm: Normal rate and regular rhythm. Heart sounds: Murmur heard. Crescendo decrescendo systolic murmur is present with a grade of 2/6. No friction rub. No gallop. Pulmonary: Effort: Pulmonary effort is normal. No respiratory distress. Breath sounds: Normal breath sounds. No wheezing or rales. Abdominal: General: Bowel sounds are normal. Palpations: Abdomen is soft. Musculoskeletal: General: Normal range of motion. Cervical back: Neck supple. Skin: General: Skin is warm and dry. Coloration: Skin is not pale. Neurological: Mental Status: He is alert and oriented to person, place, and time. Cranial Nerves: No cranial nerve deficit. Psychiatric: Mood and Affect: Mood is not anxious or depressed. Behavior: Behavior normal. Thought Content: Thought content normal. Judgment: Judgment normal. Review of Systems Constitutional: Positive for fatigue. Negative for activity change, appetite change and unexpected weight change. HENT: Negative for ear pain and trouble swallowing. Eyes: Negative for pain and visual disturbance. Respiratory: Positive for shortness of breath. Negative for chest tightness. Cardiovascular: Positive for chest pain (fleeting at rest for 5-6 seconds, atypical). Negative for palpitations and leg swelling. Gastrointestinal: Negative for abdominal pain and blood in stool. Endocrine: Negative for cold intolerance and heat intolerance. Genitourinary: Negative for dysuria, hematuria and scrotal swelling. Musculoskeletal: Negative for arthralgias and myalgias. Skin: Negative for pallor and rash. Allergic/Immunologic: Negative for immunocompromised state. Neurological: Negative for dizziness, syncope and light-headedness. Hematological: Negative for adenopathy. Does not bruise/bleed easily. Psychiatric/Behavioral: Negative for sleep disturbance. The patient is not nervous/anxious. PAST MEDICAL HISTORY Diagnosis Date BPH (benign prostatic hypertrophy) with urinary retention 01/22/2012 Bradycardia ED (erectile dysfunction) Hyperlipidemia LDL goal < 100 01/22/2012 Hypertension 01/22/2012 Obesity Type 2 diabetes mellitus not at goal 01/22/2012 PAST SURGICAL HISTORY Procedure Laterality Date CARDIAC CATHETERIZATION HX 1999, 2004 no blockages, mildly leaky valve LEFT HEART CATH,PERCUTANEOUS 06/2022 stent placed PAST SURGICAL HISTORY OF 12/2015 L3-S1 laminectomy, decompression PAST SURGICAL HISTORY OF 01/16/2017 Lumbar reexploration L3-S1 with laminectomy and decompression Social History Tobacco Use Smoking status: Former Types: Cigarettes Quit date: 01/21/2010 Years since quittin.4 Smokeless tobacco: Current Types: Chew Tobacco comments: Patient states he has been chewing since he was younger - about a half can. Patient states it is the pouch type. Vaping Use Vaping Use: Never used Substance Use Topics Alcohol use: No Drug use: No FAMILY HISTORY Problem Relation Age of Onset Diabetes Mother Heart Father Diabetes Father ALLERGIES No Known Allergies CURRENT MEDICATIONS: chlorthalidone (HYGROTON) 25 mg tablet^Take 1 tablet by mouth once daily.^Disp: 90 tablet^Rfl: 3 metFORMIN ER (GLUCOPHAGE XR) 500 mg 24 hr tablet^TAKE 2 TABLETS 2 TIMES DAILY WITH MEALS^Disp: 360 tablet^Rfl: 3 tirzepatide (MOUNJARO) 7.5 mg/0.5 mL pen injector^Inject 7.5 mg subcutaneously one time a week.^Disp: 6 mL^Rfl: 1 carvedilol (COREG) 25 mg tablet^Take 1 tablet by mouth two times a day.^Disp: 90 tablet^Rfl: 3 lisinopril (ZESTRIL) 5 mg tablet^Take 1 tablet by mouth once daily.^Disp: 30 tablet^Rfl: 11 insulin glargine U-300 conc (TOUJEO SOLOSTAR U-300 INSULIN) 300 unit/mL (1.5 mL)^Inject 48 Units subcutaneously once daily.^Disp: 13.5 mL^Rfl: 4 BD ULTRAFINE III MINI PEN 31 gauge x 16^USE AND DISCARD 1 PEN NEEDLE ONCE DAILY WITH INSULIN PEN^Disp: 90 Each^Rfl: 3 Blood Pressure Monitor^Use to monitor blood pressure^Disp: 1 Each^Rfl: 0 empagliflozin (JARDIANCE) 10 mg tablet^Take 1 tablet by mouth daily with breakfast.^Disp: 90 tablet^Rfl: 3 Blood-Glucose Meter,Continuous (DEXCOM G7 GENERATOR ASSEMBLER) [facility] [place]Use continuously to monitor glucose, IDDM, E 11.3293^Disp: ^Rfl: Blood-Glucose Sensor (DEXCOM G7 SENSOR) yesenia^Use one sensor every 10 days, IDDM, E 11.3293^Disp: ^Rfl: rosuvastatin (CRESTOR) 10 mg tablet^TAKE 1 TABLET ONCE DAILY^Disp: 90 tablet^Rfl: 3 ticagrelor (BRILINTA) 90 mg tablet^Take 1 tablet by mouth twice daily.^Disp: 180 tablet^Rfl: 3 blood sugar diagnostic (ACCU-CHEK LATIA PLUS TEST STRP) test strip^Use to test blood sugars up to twice daily when CGM reading seems inaccurate. Insulin-dependent diabetes, E11.9^Disp: 200 Strip^Rfl: 3 aspirin, enteric coated (ECOTRIN LOW STRENGTH) 81 mg EC tablet^Take 1 tablet by mouth once daily.^Disp: ^Rfl: Lancets lancets^Use as instructed to test glucose 2 times daily.^Disp: 200 Each^Rfl: 1 sildenafil (VIAGRA) 100 mg tablet^Take 1 tablet by mouth as needed. 30-60 minutes before sexual intercourse.^Disp: 10 tablet^Rfl: 1 (Patient not taking: Reported on 07/16/2023) Burke Barron DO, FACC, FAC Crusher Setter, [facility] Ambulatory Cardiology Crusher Setter, [facility] Cardiac Rehabilitation Crusher Setter, [facility] Cardiac Rehabilitation Crusher Setter, [facility] Congestive [facility] Failure Clinic Crusher Setter, [facility] Ambulatory Cardiology Clinical Top Lift And Automatic Window Repairer Profressor of Medicine, [facility] Staff [employer], [employer] Department of Cardiovascular Medicine/[facility] [place], [facility] Please note: This note has been produced using speech recognition software and may contain errors related to that system including yovany, punctuation, spelling, words, gender and phrases that may be inappropriate. documented in this encounter [facility] 07-13-2023 Miscellaneous Notes 08/14 EKG, Labs, CXR, TCI 30 day H&P, IC with Dr. Ferrer 08/15 [facility] Please Fedex packet Called patient to inform them that Dr. Ferrer reviewed information and is recommending surgery. Tentative Date is 08/15. Patient was informed of the need for further testing and dental clearance. Instructed patient last dose of blood thinners, OTC medications, and supplements is 5 days prior to surgery. Instructed to stop Brillenta 7 days surgery, ASA 81 5 days before surgery, Jardiance 3 days and Mounjaro 7-12 days before surgery. Cardiac Surgery PreOp Checklist Patient Name: Erik Clarke OR Surgery Date: 08/15 TCI Appt. Date: 08/14 Primary Care Provider: Denis Rivero MD Definition Comments Diabetes/Insulin Pump A1-c and Endo consult (need for pump pt) ordered Hypothyroid/thyroid nodules TSH/US of thyroid if new nodule n/a Stroke (CVA) Neurology consult n/a Dysphagia, stricture w/no recent dilation, Angel's Esophagus GI consult n/a Von Willebrand/thrombocytopenia/ Blood... Hematology consult n/a Abnormal labs from outside Place any necessary consults n/a Cardiac Cath Correct birthday/include all images/moving if outside cath 05/15/23 Redo OHS/Robotic surgery/radiation to chest CT or CTA/if outside CT will need in-house CXR, Cardiac MRI Cxr ordered Mechanical valve Admit for Heparin/Lovenox bridge n/a Female <50 y/o HCG n/a Heparin allergy hx of HIT Vascular Medicine consult n/a Nickel/Metal allergy Dermatology consult n/a Breast implants/Robotic candidates Plastic Surgery consult n/a Urinary strictures Urology consult/Urology consult to OR n/a All stimulators/spinal stimulator Type of stimulator n/a PPM/AICD Device check n/a Valve/TAVR/TEVAR/Myectomy/ascendin g aorta Dental clearance/Dental Consult at [facility] Edentulous CABG surgery with previous CABG/varicose vein/vein stripping Leg vein mapping n/a LMT disease > 30% or Carotid Bruits Carotid ultrasound n/a Descending Aneurysm/TEVAR/TAA Pre-admit/hydration/spinal drain to be placed: IR/OR/Not Needed N/a Dialysis patient IHD day prior to [facility] n/a CABG with no ECHO results Discussion w/surgeon results for dental clearance: preop/postop n/a Advanced Directives Instructions given to patient n/a FMLA Forward to AA n/a Test/Consult not needed Communicate in Epic or Access n/a Record of decreased PFTs, known lung disease Any pulmonary consult n/a Pulmonary embolectomy Needs US/Duplex BLE, VQ scan RHC, possible LHC, Pulmonary and/or Vascular consult n/a Abnormal CT All>1cm if further workup/consult needed n/a CC-[employer] Repostitory Notification of packet and general knowledge given to pt n/a Reason for the Referral: HOCM, Aortic stenosis [place] referral H&P/Comorbidities: Per records reviewed past medical history significant for Hypertension, Hyperlipidemia, and Diabetes Symptoms: Chest pain, Shortness of breath, and Dizziness Pertinent Medications: Brillinta, Jardiance, Mounjaro, ASA 81, Metorprolol, Norvasc, Crestor, Zestril, Chlorthaliadone, Metformin, Viagra Previous treatments and related surgeries (Last 12 months): Findings for tests related to dx : Cardiac Cath: 05/15/23 Mild coronary artery disease with patent stent in OM1. Peak to peak gradient across the aortic valve 74mmHg. Unable to tell if this is LVOT vs heydi and LVOT combination. ECHO: LVEF 58%, Peak LVOT gradient 29 mmHg, Mitral regurgitation trace, Aortic regurgitation mild, Tricuspid regurgitation trace, and Aortic stenosis severe Stress ECHO: n/a NM cardiac perf stress CONCLUSIONS: 1. SPECT Perfusion Study: Normal. 2. There is no scintigraphic evidence for inducible ischemia. 3. No evidence of scarred myocardium. 4. Left ventricle is normal in size. The left ventricle systolic function is normal. 5. Right ventricle is normal in size. 6. This is a low risk scan. Cardiac MRI: Septum 1.9cm EKG: normal sinus left axis deviation Septal infarct Pertinent labs: Creatinine 0.77, Hematocrit 45, and Platelets 297 Deysi Mahan, RN Summary: Case reviewed. Needs aortic valve replacement and myectomy. Chrisira Images from the original note were not included. Received Referral from: Gisel Wallace [address] [facility] [address] [employer]: TANGELA Fischer MD Outside Records Scanned into Epic: N/A Care Everywhere Initiated Yes Misc: Images: (internal) yes Cath, CTA, TTE, and MRI Images: (external) no N/A LOCAL PATIENT Received routed order from Gisel Wallace Erik Clarke is being referred to Robert Ferrer M.D. by Gisel Wallace [address] [facility] [address] Patient diagnosis/Reason for consult: HOCM & aortic valve stenosis Referral triage process explained: Yes Patient will receive a call from Cardiac NPM after triage review with surgeon to discuss any additional testing and/or consults that will be scheduled. Pt will then receive a call from our scheduling office for scheduling. Please call pt at [phone]. Patient Registration: Registration complete/updated: yes Insurance card(s) scanned in [facility] with in the past year: Yes: Date: 06/2023 Pt's [employer] is active. Ok to communicate to pt via [employer] yes Medical Records: Records in [facility] (internal [facility] records): Yes Imaging in [facility] (internal [facility] records): Yes Care Everywhere - queried yes, downloaded Yes Linked Outside Organizations (list): Additional providers added to Care Teams: Yes Additional Notes/Comments: Enct routed to: Yes, Cardiac NPM for triage Amira Rivera documented in this encounter [facility] 07-10-2023 Telephone encounter Note IN [facility] Work Phone: 07-10-2023 Miscellaneous Notes IN Insurance Card(s) scanned into [employer] Please register/advise Thank You! documented in this encounter [facility] 07-10-2023 Telephone encounter Note Insurance Card(s) scanned into [employer] Please register/advise Thank You! [facility] 07-10-2023 Miscellaneous Notes I spoke with the patient and updated him CMR review with Dr. Javier and Dr. Ferrer at [facility]. We are recommending Surgical Myectomy and SAVR. I have placed consult to Dr. Grace today. Patient is agreeable to treatment plan. Advised patient continue with his follow with Dr. Barron as scheduled to ensure we can optimize his medical management. Gisel Wallace APRN.ANNIE Pt returned call. Please call back at [phone]. Henok Feng LPN Attempted to call patient to update him on CMR results and upcoming treatment plan recommendations. Left a voicemail requesting a call back. Gisel Wallace APRN.ANNIE documented in this encounter [facility] 07-05-2023 Miscellaneous Notes Patient's request for medication is as follows: Requested Prescriptions Pending Prescriptions Disp Refills chlorthalidone (HYGROTON) 25 mg tablet 90 tablet 3 Sig: Take 1 tablet by mouth once daily. Patient seen on 04/25/2023. Prescription(s) as above. Please process accordingly. Marissa Gonzalez LPN documented in this encounter [facility] 07-02-2023 Miscellaneous Notes Last appointment: 02/14/23 Next appointment: n/a Pharmacy verified in [facility]. Refill(s) requested: Requested Prescriptions Pending Prescriptions Disp Refills metFORMIN ER (GLUCOPHAGE XR) 500 mg 24 hr tablet [Pharmacy Med Name: METFORMIN ER TAB 500MG GP] 360 tablet 3 Sig: TAKE 2 TABLETS 2 TIMES DAILY WITH MEALS Order(s) pended. Please advise. Alicia Jean MA, PIN WORKER documented in this encounter [facility] 06-27-2023 History of Present illness Narrative Radiology Service Progress Note DATE OF SERVICE: June 27, 2023 TIME: 12:27 PM PATIENT IDENTITY VERIFICATION COMPLETED USING TWO (2) STANDARD IDENTIFIERS: Name and Date of confirmed by patient verbally. FALL SCREENING: Has the patient had 2 falls in the last year or 1 fall with injury or currently using an Ambulatory Assistive Device (Walker, Cane, Wheelchair, Crutches, etc.)? No PATIENT GENDER DATA: Male PATIENT RELEVANT IMPLANT DATA REVIEWED: Yes PATIENT PRESENTS WITH AN IMPLANTABLE OR ATTACHED GARAGE ATTENDANT: No ALLERGIES: Reviewed and unchanged CONTRAST ALLERGY: NO. EXAM: MRI - CONTRAST TYPE: GROUP II PERIPHERAL IV DATA: Ambulatory: A peripheral IV was started in the Right antecubital site with a Angio cath: 22 gauge. RADIOLOGY DEPARTMENT: MR; Exam(s) Completed: Cardiac: Cardiac SIGNATURE: RT Jaci(R) PATIENT NAME: Erik Clarke DATE: June 27, 2023 TIME: 12:27 PM documented in this encounter [facility] 06-05-2023 Miscellaneous Notes Alexis, please protocol this Cardiac MRI Scheduled in [place] on 06/27/2023. Ender Ashby MRI documented in this encounter [facility] 03-26-2023 Miscellaneous Notes Spoke to Mr. Clarke about test results. Patient voiced understanding. Marissa Gonzalez LPN ----- Message from Gisel Wallace APRN.CNP sent at 03/26/2023 3:14 PM EST ----- Please call the patient and report lab results revealed stable BMP and CBC. BNP is normal. Gisel Wallace APRN.CNP documented in this encounter [facility] 03-21-2023 Miscellaneous Notes Patient with moderate-severe aortic valve stenosis. Reports shortness of breath with higher levels of exertion. Will proceed with TAVR Scans and BNP for further evaluation prior to Valve Clinic. Patient had recent PCI in June of [address] Jaramillo. Please schedule patient for TAVR Scans on 04/05/2023 at 9am. - Patient will hold Metformin 48 hours before and after scan - Take Metoprolol at 7 am - Arrive at 8:45 am BMP, BNP, CBC to be completed by 04/04/23 Please schedule patient for Valve Clinic on 04/25/2023 at 11:30 am. - Patient instructed to arrive at 11:15 am. Patient is edentulous. Gisel Wallace APRN.CNP documented in this encounter [facility] 03-19-2023 Instructions Antoinette Alicea APRN.CNP - 03/19/2023 10:57 AM EST PLAN AND RECOMMENDATIONS: Cut lisinopril and norvasc in half. Final clearance for colonoscopy will be throught Dr Barron but appears to be optimized from cardiac standpoint. CONTACT INFORMATION: Antoinette Alicea APRN.CNP Cardiology Nurse Practitioner Section of Regional Cardiology [place] Dept of Cardiovascular Medicine [facility] [place] [address] [facility] [place] [id number] Office Office documented in this encounter [facility] 03-19-2023 History of Present illness Narrative Images from the original note were not included. [facility] [place] John Espinoza Department of Cardiovascular Medicine SECTION OF CLINICAL CARDIOLOGY OUTPATIENT VISIT DATE March 19, 2023 OUTPATIENT VISIT TYPE ESTABLISHED PRIMARY CARE PHYSICIAN: Denis Rivero [address] [place] [address] [facility] [id number] CHIEF COMPLAINT: Cardiac Clearance (Upcoming Colonoscopy) HISTORY OF PRESENT ILLNESS: Mr. Clarke is a 67 year old male with PMH of CAD/CATRACHITA to LCX 06/2022, HLD, HTN, D\M2, aortic stenosis, who presents today for a cardiovascular medicine follow-up visit for Dr Barron and he needs clearance for colonoscopy on 04/04/2023. Feeling ok. No chest pain. Occasionally has some shortness of breath if he exerts himself a lot. No trouble walking into our office here. No PND, or orthopnea. No leg swelling Since he has had his stent placed, his blood pressure has been low 100-110 systolic. He notes sometimes he is lightheaded. Particularly with changing positions. He denies palpitations, lower extremity edema, PND, orthopnea, presyncope, syncope, or claudication symptoms Subjective PAST MEDICAL HISTORY Diagnosis Date BPH (benign prostatic hypertrophy) with urinary retention 01/22/2012 Bradycardia ED (erectile dysfunction) Hyperlipidemia LDL goal < 100 01/22/2012 Hypertension 01/22/2012 Obesity Type 2 diabetes mellitus not at goal 01/22/2012 PAST SURGICAL HISTORY Procedure Laterality Date CARDIAC CATHETERIZATION HX 1999, 2004 no blockages, mildly leaky valve LEFT HEART CATH,PERCUTANEOUS 06/2022 stent placed PAST SURGICAL HISTORY OF 12/2015 L3-S1 laminectomy, decompression PAST SURGICAL HISTORY OF 01/16/2017 Lumbar reexploration L3-S1 with laminectomy and decompression Social History Tobacco Use Smoking status: Former Types: Cigarettes Quit date: 01/21/2010 Years since quittin.1 Smokeless tobacco: Current Types: Chew Vaping Use Vaping Use: Never used Substance Use Topics Alcohol use: No Drug use: No FAMILY HISTORY Problem Relation Age of Onset Diabetes Mother Heart Father Diabetes Father ALLERGIES: ALLERGIES No Known Allergies MEDICATIONS: insulin glargine (BASAGLAR KWIKPEN U-100 INSULIN) 100 unit/mL (3 mL)^Inject 48 Units subcutaneously once daily.^Disp: ^Rfl: Blood Pressure Monitor^Use to monitor blood pressure^Disp: 1 Each^Rfl: 0 tirzepatide (MOUNJARO) 5 mg/0.5 mL pen injector^Inject 5 mg subcutaneously one time a week.^Disp: 6 mL^Rfl: 3 empagliflozin (JARDIANCE) 10 mg tablet^Take 1 tablet by mouth daily with breakfast.^Disp: 90 tablet^Rfl: 3 Blood-Glucose Meter,Continuous (DEXCOM G7 GENERATOR ASSEMBLER) misc^Use continuously to monitor glucose, IDDM, E 11.3293^Disp: ^Rfl: Blood-Glucose Sensor (DEXCOM G7 SENSOR) yesenia^Use one sensor every 10 days, IDDM, E 11.3293^Disp: ^Rfl: rosuvastatin (CRESTOR) 10 mg tablet^TAKE 1 TABLET ONCE DAILY^Disp: 90 tablet^Rfl: 3 sildenafil (VIAGRA) 100 mg tablet^Take 1 tablet by mouth as needed. 30-60 minutes before sexual intercourse.^Disp: 10 tablet^Rfl: 1 lisinopril (ZESTRIL) 40 mg tablet^Take 1 tablet by mouth once daily.^Disp: 90 tablet^Rfl: 3 ticagrelor (BRILINTA) 90 mg tablet^Take 1 tablet by mouth twice daily.^Disp: 180 tablet^Rfl: 3 chlorthalidone (HYGROTON) 25 mg tablet^TAKE 1 TABLET BY MOUTH EVERY DAY^Disp: 90 tablet^Rfl: 3 metFORMIN ER (GLUCOPHAGE XR) 500 mg 24 hr tablet^Take 2 tablets by mouth twice daily with meals.^Disp: 360 tablet^Rfl: 3 metoprolol tartrate 75 mg tab^Take 1 tablet by mouth twice daily.^Disp: 180 tablet^Rfl: 3 amLODIPine (NORVASC) 10 mg tablet^TAKE 1 TABLET ONCE DAILY^Disp: 90 tablet^Rfl: 3 BD ULTRAFINE III MINI PEN 31 gauge x 07/06^USE AND DISCARD 1 PEN NEEDLE ONCE DAILY WITH INSULIN PEN^Disp: 100 Each^Rfl: 3 blood sugar diagnostic (ACCU-CHEK LATIA PLUS TEST STRP) test strip^Use to test blood sugars up to twice daily when CGM reading seems inaccurate. Insulin-dependent diabetes, E11.9^Disp: 200 Strip^Rfl: 3 aspirin, enteric coated (ECOTRIN LOW STRENGTH) 81 mg EC tablet^Take 1 tablet by mouth once daily.^Disp: ^Rfl: Lancets lancets^Use as instructed to test glucose 2 times daily.^Disp: 200 Each^Rfl: 1 REVIEW OF SYSTEMS: CARD: See HPI GENERAL: Negative for: Weight loss or gain, Fever and/or Chills HEENT: Negative for: Headache, Impaired Vision, Glasses, Hearing Impairment, Ringing in Ears, Nosebleeds, Bleeding Gums NECK: Negative for: Swelling, Pain, Stiffness RESPIRATORY: Negative for: Cough, Blood in Sputum, Wheezing, Apnea GASTROINTESTINAL: Negative for: Nausea, Vomiting, Diarrhea, Blood in stool, or Dark black stools MUSCULOSKELETAL: Negative for: Muscle or joint pain, Stiffness , Joint swelling NEUROLOGIC: Negative for: focal numbness/weakness, headaches, visual changes, ataxia, speech/language loss HEMATOLOGICAL/LYMPHATIC: Negative for: Easy bruising , Easy bleeding Objective PHYSICAL EXAMINATION: BP 108/60 Pulse 78 Ht 172.7 cm (5' 8) Wt 90.7 kg (199 lb 15.3 oz) SpO2 98% BMI 30.40 kg/m General: Well appearing, in no acute distress. Skin: No clubbing, no cyanosis. Eyes: Extra ocular movements intact Neck: No jugular venous distention, no carotid bruits, carotids have a normal upstroke. Lungs: Clear to auscultation bilaterally, no wheezing or rhonchi. Distant breath sounds. Heart: Regular rhythm, S1, S2 normal,3/6 systolic murmur. No peripheral edema . Grade 2/4 distal pulses bilaterally. Abdomen: Soft Neuro: Oriented to person, place and time, alert, cooperative, gait coordinated. CARDIOVASCULAR MEDICINE TESTING: No Cardiovascular testing perfomed today. Last ECHO Result Conclusion ECHO Collected: 07/06/2022 7:11 AM (Final result) Impression: CONCLUSIONS: - Exam indication: Aortic stenosis - The left ventricle is normal in size. Left ventricular systolic function is normal. EF = 57 5% (2D biplane) Grade I left ventricular diastolic dysfunction. - The right ventricle is normal in size. Right ventricular systolic function is normal. - The right atrial cavity is mildly dilated. - There is moderately severe aortic valve stenosis. AV area is 1.03 cm (0.48 cm /m ) by continuity, VTI. The peak gradient is 66 mmHg, the mean gradient is 38 mmHg and the dimensionless valve index is 0.30. Mild 1+ aortic regurgitation. Prior gradients were 40/25 mmHg. - Estimated right ventricular systolic pressure is likely underestimated due to a weak or incomplete tricuspid regurgitation signal and is, at least, 19 mmHg consistent with normal pulmonary artery pressures. Estimated right atrial pressure is 3 mmHg based on IVC assessment. - Exam was compared with the prior CC echocardiographic exam performed on 06/30/21. The aortic stenosis is now moderately severe (Prior was moderate). The aortic regurgitation is now mild. * * * Final * * * Last EKG Result Conclusion ECG COMPLETE Collected: 08/28/2022 8:07 AM (Final result) Impression: NORMAL SINUS RHYTHM LEFT AXIS DEVIATION MINIMAL VOLTAGE CRITERIA FOR LVH, MAY BE NORMAL VARIANT ( [place] product ) ANTEROSEPTAL MYOCARDIAL INFARCTION , AGE UNDETERMINED ABNORMAL ECG Confirmed by MD BARRON GREGORY () on 08/29/2022 2:07:20 PM I have personally reviewed the Electrocardiogram. 08/2022. No change from previous ekg. I personally interviewed, confirmed and edited the above information if obtained by others. Conclusion: (I10) Primary hypertension (primary encounter diagnosis) Comment: low bp since stent Plan: cut lisinopril and norvasc in half. Perhaps stop norvasc if remains low. (I35.0) Non-rheumatic aortic stenosis Comment: echo completed today. Plan: if echo is unchanged, then repeat in next 6-12 months. (I25.10) Coronary artery disease involving [place] coronary artery of [place] heart without angina pectoris Comment: no ischemic symptoms. Overall feeling ok since stent placed Plan: cutting lisinopril and norvasc in half. Otherwise no change. PLAN AND RECOMMENDATIONS: Cut lisinopril and norvasc in half. Had echo completed today. Final clearance for colonoscopy will be throught Dr Barron but appears to be optimized from cardiac standpoint. CONTACT INFORMATION: Antoinette Alicea APRN.ANNIE Cardiology Nurse Practitioner Section of Regional Cardiology [facility] Dept of Cardiovascular Medicine [facility] [place] [address] [place] [address] Office Office documented in this encounter [facility] 03-05-2023 History of Present illness Narrative Images from the original note were not included. Primary Care Pharmacy Visit CC (Reason for Consult): (E11.9, Z79.4) Type 2 diabetes mellitus without complication, with long-term current use of insulin (HCC) (primary encounter diagnosis) Goal(s): A1c <7% Last Collaborating Provider Visit: 02/14/[address] Rivero Erik Clarke is a 67 year old male presenting for follow up visit in person. Patient consents to pharmacy collaborative practice agreement. Last Pharmacy Visit: 01/29/23 - Basaglar dose decreased to 45 units once daily to reduce risk of hypoglycemia HPI: Reports BGs have been running a little higher lately, mostly in the morning and after meals States he knows some of the elevation in readings is due to him snacking at night Reports he self-increased dose of insulin up to 48 units 2-3 days ago since he was noticing some higher readings Current DM Medications: Metformin ER 500mg tabs - 1000 mg BID Empagliflozin (Jardiance) 10 mg daily Mounjaro 5 mg once weekly on Fridays Insulin glargine (Basaglar) 45 units daily every evening - taking 48 units once daily (last couple days) Previously Trialed DM Meds: Glimepiride - changed to insulin Byetta Ehsan - can't remember why he stopped it Jardiance 25mg - balanitis Diet Denies any change in diet Snacking the night before and eats GLYCEMIC CONTROL: Glucometer present at visit: Yes Hypoglycemia: Yes; however, thinks couple episodes was after new sensor placed prior to him calibrating new sensor (no symptoms) CGM Data Past medical history reviewed. ALLERGIES No Known Allergies Current Outpatient Medications Medication Sig Dispense Refill Blood Pressure Monitor Use to monitor blood pressure 1 Each 0 insulin glargine (BASAGLAR KWIKPEN U-100 INSULIN) 100 unit/mL (3 mL) Inject 45 Units subcutaneously once daily. 45 mL 3 tirzepatide (MOUNJARO) 5 mg/0.5 mL pen injector Inject 5 mg subcutaneously one time a week. 6 mL 3 empagliflozin (JARDIANCE) 10 mg tablet Take 1 tablet by mouth daily with breakfast. 90 tablet 3 Blood-Glucose Meter,Continuous (DEXCOM G7 GENERATOR ASSEMBLER) [facility] continuously to monitor glucose, IDDM, E 11.3293 Blood-Glucose Sensor (DEXCOM G7 SENSOR) yesenia Use one sensor every 10 days, IDDM, E 11.3293 rosuvastatin (CRESTOR) 10 mg tablet TAKE 1 TABLET ONCE DAILY 90 tablet 3 sildenafil (VIAGRA) 100 mg tablet Take 1 tablet by mouth as needed. 30-60 minutes before sexual intercourse. 10 tablet 1 lisinopril (ZESTRIL) 40 mg tablet Take 1 tablet by mouth once daily. 90 tablet 3 ticagrelor (BRILINTA) 90 mg tablet Take 1 tablet by mouth twice daily. 180 tablet 3 chlorthalidone (HYGROTON) 25 mg tablet TAKE 1 TABLET BY MOUTH EVERY DAY 90 tablet 3 metFORMIN ER (GLUCOPHAGE XR) 500 mg 24 hr tablet Take 2 tablets by mouth twice daily with meals. 360 tablet 3 metoprolol tartrate 75 mg tab Take 1 tablet by mouth twice daily. 180 tablet 3 amLODIPine (NORVASC) 10 mg tablet TAKE 1 TABLET ONCE DAILY 90 tablet 3 BD ULTRAFINE III MINI PEN 31 gauge x 3/16 USE AND DISCARD 1 PEN NEEDLE ONCE DAILY WITH INSULIN PEN 100 Each 3 blood sugar diagnostic (ACCU-CHEK LATIA PLUS TEST STRP) test strip Use to test blood sugars up to twice daily when CGM reading seems inaccurate. Insulin-dependent diabetes, E11.9 200 Strip 3 aspirin, enteric coated (ECOTRIN LOW STRENGTH) 81 mg EC tablet Take 1 tablet by mouth once daily. Lancets lancets Use as instructed to test glucose 2 times daily. 200 Each 1 Current Facility-Administered Medications Medication Dose Route Frequency Provider Last Rate Last Admin perflutren lipid microspheres 1.3 mL in NaCl (PF) 0.9% 10 mL injection (DEFINITY) INTRAVENOUS DIRECTED PRN Burke Barron, DO sodium chloride 0.9 % (flush) 10 mL (BD POSIFLUSH) 10 mL INTRAVENOUS DIRECTED PRN Burke Barron, Pill bottles are not present. Adherence: denies missed doses. Rx coverage: Payor: MEDICARE / Plan: MEDICARE A AND B / Product Type: Medicare / Medications affordable? Yes PHARMACOTHERAPY PREVENTATIVE MEDS: On MARY BETH/ARB: Yes On Statin: Yes On ASA: Yes EXAM: There were no vitals taken for this visit. Last 3 Encounter BP Readings: Date: BP: 02/14/2023 118/68 02/07/2023 128/72 01/15/2023 100/60 Wt: 90.7 kg (200 lb) BMI: 30.41 kg/(m^2) LABS: Lab Results Component Value Date HBA1C 7.7 11/14/2022 HBA1C 7.8 07/03/2022 HBA1C 7.8 05/12/2022 HBA1C 7.9 12/13/2021 HBA1C 9.1 04/05/2020 HBA1C 9.0 11/03/2019 HBA1C 8.4 03/14/2019 HBA1C 8.0 08/24/2018 Glucose 167 11/14/2022 BUN 18 11/14/2022 Creatinine 0.62 11/14/2022 Sodium 138 11/14/2022 Potassium 3.7 11/14/2022 Chloride 99 11/14/2022 CO2 24 11/14/2022 Protein, Total 7.5 11/14/2022 Albumin 4.7 11/14/2022 Calcium 10.2 11/14/2022 Alkaline Phosphatase 54 11/14/2022 Bilirubin, Total 0.9 11/14/2022 AST 21 11/14/2022 ALT 27 11/14/2022 Lab Results Component Value Date CHOL 107 05/12/2022 CHOL 146 04/05/2020 LDL 41 05/12/2022 LDL 53 04/05/2020 HDL 29 05/12/2022 HDL 31 04/05/2020 TG 187 05/12/2022 TG 310 04/05/2020 Albumin/Creat Ratio (mg/g) Date Value 05/12/2022 <21 eGFR-All Other Races Date Value 06/09/2021 >60 04/05/2020 >60 . Estimated Glomerular Filtration Rate (mL/min/1.73m ) Date Value 11/14/2022 104 ASSESSMENT/PLAN: 1. Type 2 diabetes mellitus without complication, with long-term current use of insulin ([facility]) - ICD9: 250.00, V58.67, ICD10: E11.9, Z79.4 - Uncontrolled. A1c not at goal of <7%. CGM data shows TIR not at goal, with worsening since last visit; no hypoglycemia. Elevated readings likely due to patient eating late at night. Patient would like to focus on diet modifications at this time. Will continue higher dose of Basaglar as patient self-increased to given higher readings in the morning. Patient would likely benefit from further titration of Mounjaro dose; will defer until f/up with endocrinology next month. - Continue current medications - Statin prescribed - rosuvastatin - Blood glucose monitoring on a continuous glucose monitoring schedule - Counseled on healthy diet and regular exercise. Recommended positive lifestyle modifications including portion control, low-carb diet, and as much physical activity as able. Encouraged patient to avoid snacking late at night or replace with a snack containing low-carb, protein options. - Follow up in 2 months, sooner should any other issues arise. Follow Up: Next PCP visit: not scheduled Next Endo visit: 04/12/23 Next PharmD visit: 05/21/22 Ophelia Null PharmD Primary Care Clinical Industrial Hygiene Manager The majority of the pharmacy visit (> 50%) was spent counseling and/or coordinating care for the patient. interaction: face to face time was 30 minutes. documented in this encounter [facility] 03-05-2023 Instructions Ophelia Null RPh - 03/05/2023 9:00 AM EST Continue Basaglar 48 units once daily Try to limit the nighttime snacking documented in this encounter [facility] 02-09-2023 Miscellaneous Notes Patient scheduled 04/04/2023 with E[facility] in [place] for upper and lowers. Per rey José Luis patient to seek cardiac clearance as well PACC appointment piror to procedure Per Rey patient to remain on all anticoagulates Patient follows Antoinette Alicea in [place] [facility]. Patient is to seek clearance on appointment 03/19/2023. Patient aware all appointments need to be completed prior to proceed. Clearance to be sent documented in this encounter [facility] 02-07-2023 Nurse Note REVIEW OF SYSTEMS: General: The patient denies fatigue, denies weight loss, denies weight gain, denies feeling hot, and denies feelings of cold. Eyes: The patient denies glaucoma, denies eye injury/surgery, wears glasses or contacts. Ear/Nose/Throat: The patient denies allergies, denies hayfever, denies ear infections, and denies bloody noses. Cardiovascular: The patient denies chest pain, denies heart disease, NOTES high blood pressure,NOTES cardiac stent, denies prior heart attack, denies irregular heart beat, NOTES high cholesterol, denies poor circulation, denies heart failure, other cardiac issues, denies claudication, denies cold feet, denies peripheral arterial stent. Respiratory: The patient denies tuberculosis, denies pneumonia, denies frequent cough, denies pulmonary embolism, denies shortness of breath, and denies coughing up blood. Gastrointestinal: The patient denies difficulty swallowing, denies acid reflux, denies ulcers, denies vomiting, denies jaundice/hepatitis, denies gallbladder problems, denies black or tarry stools, denies hemorrhoids, denies bleeding from rectum, denies diverticulitis, denies constipation, denies diarrhea, denies loss of stool control, and denies hernias. Kidney/Bladder: The patient denies kidney stones, denies urine infections, and denies bloody urine. Skin: The patient denies a history of skin cancer, denies bleeding/changing moles, and denies a history of skin rash. Neurologic: The patient denies a history of epilepsy/convulsions, denies headaches, denies head/spinal injuries, and denies stroke/TIA. Psychiatric: The patient denies psychiatric medications, denies depression, and denies voices, denies substance abuse. Endocrine: The patient denies thyroid disorders, NOTES diabetes, and denies hormonal problems. Hematologic: The patient denies a history of bruising, denies bleeding, and denies anemia, denies blood clots. Infections: The patient denies a history of measles and mumps, denies rheumatic fever, and denies sexually transmitted diseases. Musculoskeletal: The patient denies back pain/injury, denies back problems, denies sciatica, denies knee/foot trouble, denies arthritis, or denies gout. When was patient's last Mammogram screening? N/A Last Colonoscopy: more than 20 years ago Lidya Ryan RN documented in this encounter [facility] 02-07-2023 History of Present illness Narrative HISTORY AND PHYSICAL Erik Clarke 1955 REFERRING PHYSICIAN: No ref. provider found CHIEF COMPLAINT: Consult (Colonoscopy consultation, positive FOBT.) HPI: The patient is a 67 year old male referred for endoscopy. Erik notes a positive Cologuard and was referred for colonoscopy. Patient denies any change in bowel habits, weight changes, blood in stools, black tarry stools or abdominal pain. Denies family history of colon issues. The patient NOTES GERD as well as history of tobacco use. Erik has undergone remote prior endoscopy, 20+ years ago Medical history significant for extensive cardiac history. Severe aortic stenosis. S/p heart cath and stent placement June 2022. DM II PAST MEDICAL HISTORY Diagnosis Date BPH (benign prostatic hypertrophy) with urinary retention 01/22/2012 Bradycardia ED (erectile dysfunction) Hyperlipidemia LDL goal < 100 01/22/2012 Hypertension 01/22/2012 Obesity Type 2 diabetes mellitus not at goal 01/22/2012 PAST SURGICAL HISTORY Procedure Laterality Date CARDIAC CATHETERIZATION HX 1999, 2004 no blockages, mildly leaky valve LEFT HEART CATH,PERCUTANEOUS 06/2022 stent placed PAST SURGICAL HISTORY OF 12/2015 L3-S1 laminectomy, decompression PAST SURGICAL HISTORY OF 01/16/2017 Lumbar reexploration L3-S1 with laminectomy and decompression Current Outpatient Medications Medication Sig insulin glargine (BASAGLAR KWIKPEN U-100 INSULIN) 100 unit/mL (3 mL) Inject 45 Units subcutaneously once daily. Blood Pressure Monitor Use to monitor blood pressure tirzepatide (MOUNJARO) 5 mg/0.5 mL pen injector Inject 5 mg subcutaneously one time a week. empagliflozin (JARDIANCE) 10 mg tablet Take 1 tablet by mouth daily with breakfast. Blood-Glucose Meter,Continuous (DEXCOM G7 GENERATOR ASSEMBLER) [facility] [place] continuously to monitor glucose, IDDM, E 11.3293 Blood-Glucose Sensor (DEXCOM G7 SENSOR) yesenia Use one sensor every 10 days, IDDM, E 11.3293 rosuvastatin (CRESTOR) 10 mg tablet TAKE 1 TABLET ONCE DAILY sildenafil (VIAGRA) 100 mg tablet Take 1 tablet by mouth as needed. 30-60 minutes before sexual intercourse. lisinopril (ZESTRIL) 40 mg tablet Take 1 tablet by mouth once daily. ticagrelor (BRILINTA) 90 mg tablet Take 1 tablet by mouth twice daily. chlorthalidone (HYGROTON) 25 mg tablet TAKE 1 TABLET BY MOUTH EVERY DAY metFORMIN ER (GLUCOPHAGE XR) 500 mg 24 hr tablet Take 2 tablets by mouth twice daily with meals. metoprolol tartrate 75 mg tab Take 1 tablet by mouth twice daily. amLODIPine (NORVASC) 10 mg tablet TAKE 1 TABLET ONCE DAILY BD ULTRAFINE III MINI PEN 31 gauge x 3/16 USE AND DISCARD 1 PEN NEEDLE ONCE DAILY WITH INSULIN PEN blood sugar diagnostic (ACCU-CHEK LATIA PLUS TEST STRP) test strip Use to test blood sugars up to twice daily when CGM reading seems inaccurate. Insulin-dependent diabetes, E11.9 aspirin, enteric coated (ECOTRIN LOW STRENGTH) 81 mg EC tablet Take 1 tablet by mouth once daily. Lancets lancets Use as instructed to test glucose 2 times daily. Current Facility-Administered Medications Medication Dose Route Frequency perflutren lipid microspheres 1.3 mL in NaCl (PF) 0.9% 10 mL injection (DEFINITY) INTRAVENOUS DIRECTED PRN sodium chloride 0.9 % (flush) 10 mL (BD POSIFLUSH) 10 mL INTRAVENOUS DIRECTED PRN ALLERGIES: Patient has no known allergies. PERSONAL HISTORY: Social History Tobacco Use Smoking status: Former Types: Cigarettes Quit date: 01/21/2010 Years since quittin.0 Smokeless tobacco: Current Types: Chew Vaping Use Vaping Use: Never used Substance Use Topics Alcohol use: No Drug use: No FAMILY HISTORY: FAMILY HISTORY Problem Relation Age of Onset Diabetes Mother Heart Father Diabetes Father REVIEW OF SYMPTOMS: The review of systems data was entered by the nurse and reviewed by wa Nursing Notes: Lidya Ryan RN 02/07/2023 10:05 AM Signed REVIEW OF SYSTEMS: General: The patient denies fatigue, denies weight loss, denies weight gain, denies feeling hot, and denies feelings of cold. Eyes: The patient denies glaucoma, denies eye injury/surgery, wears glasses or contacts. Ear/Nose/Throat: The patient denies allergies, denies hayfever, denies ear infections, and denies bloody noses. Cardiovascular: The patient denies chest pain, denies heart disease, NOTES high blood pressure,NOTES cardiac stent, denies prior heart attack, denies irregular heart beat, NOTES high cholesterol, denies poor circulation, denies heart failure, other cardiac issues, denies claudication, denies cold feet, denies peripheral arterial stent. Respiratory: The patient denies tuberculosis, denies pneumonia, denies frequent cough, denies pulmonary embolism, denies shortness of breath, and denies coughing up blood. Gastrointestinal: The patient denies difficulty swallowing, denies acid reflux, denies ulcers, denies vomiting, denies jaundice/hepatitis, denies gallbladder problems, denies black or tarry stools, denies hemorrhoids, denies bleeding from rectum, denies diverticulitis, denies constipation, denies diarrhea, denies loss of stool control, and denies hernias. Kidney/Bladder: The patient denies kidney stones, denies urine infections, and denies bloody urine. Skin: The patient denies a history of skin cancer, denies bleeding/changing moles, and denies a history of skin rash. Neurologic: The patient denies a history of epilepsy/convulsions, denies headaches, denies head/spinal injuries, and denies stroke/TIA. Psychiatric: The patient denies psychiatric medications, denies depression, and denies voices, denies substance abuse. Endocrine: The patient denies thyroid disorders, NOTES diabetes, and denies hormonal problems. Hematologic: The patient denies a history of bruising, denies bleeding, and denies anemia, denies blood clots. Infections: The patient denies a history of measles and mumps, denies rheumatic fever, and denies sexually transmitted diseases. Musculoskeletal: The patient denies back pain/injury, denies back problems, denies sciatica, denies knee/foot trouble, denies arthritis, or denies gout. When was patient's last Mammogram screening? N/A Last Colonoscopy: more than 20 years ago Lidya Ryan RN I have confirmed and edited as necessary, the PFSH and ROS obtained by others. Rey Ordonez PA-C PHYSICAL EXAMINATION: General: The patient is 67 year old male, well nourished, well hydrated in no acute distress. The patient is oriented to time, place, and person. VITALS: Blood pressure 128/72, pulse 79, temperature 36.4 C (97.6 F), height 172.7 cm (5' 8), weight 91.1 kg (200 lb 12.8 oz), SpO2 97 %. Body mass index is 30.53 kg/m . HEENT: Normal cephalic, ataumatic, pupils are equally round, sclera are anicteric, mucous membranes are moist, oropharynx is clear. Neck has no masses, asymmetry or lymphadenopathy. Respiratory: Clear to auscultation and percussion. Normal respiratory excursion and pattern. Cardiac: Examination is regular rate and rhythm. Normal S1/S2 Abdominal exam: Soft, nontender, with no palpable masses. No hepatosplenomegaly. No palpable hernias. Extremities: no clubbing, cyanosis or edema. No adenopathy. LABORATORY VALUES: As Noted RADIOLOGIC STUDIES: As Noted Assessment IMPRESSION: positive Cologuard. GERD, history of tobacco use PLAN: I have reviewed my findings with the surgeon. Will plan for upper and lower endoscopy. We discussed the risks and benefits of the planned endoscopy. I have informed the patient that complications can occur including failure to complete the endoscopy and perforation. The patient had the opportunity to ask questions concerning the planned endoscopy. My staff has also explained the procedure to the patient in understandable terms and has given the patient printed material concerning the procedure. The patient freely consents to surgery. Patient instructed to contact PCP for instructions regarding diabetic medication, which may require adjustment during bowel preparation and/or day of procedure Patient to remain on his anticoagulation for endoscopy I plan to use Miralax bowel preparation The patient has medical comorbidities for which we will plan for the procedure to be performed under Monitored Anesthetic Care. Patient with severe aortic stenosis, will require PACC eval and cardiac clearance Diagnoses: (Z12.11) Encounter for screening for malignant neoplasm of colon (primary encounter diagnosis) (Z79.01) On continuous oral anticoagulation (I35.0) Aortic valve stenosis, etiology of cardiac valve disease unspecified Consultation requested by Dr. Joshua for an opinion regarding positive Cologuard. My final recommendations will be communicated back to the requesting physician by way of shared Medical record or letter to requesting physician via US mail. Rey Ordonez PA-C documented in this encounter [facility] 02-02-2023 Miscellaneous Notes Patient has appointment 02/07/23 in [place] with Rey Ordonez CNP for consult per recommendation of Dr Marjorie Lee. This encounter closed. Images from the original note were not included. Patient to come in for consult Marjorie Lee MD [place], Breanna No for ASC, no for [place], this patient has almost critical aortic stenosis and at risk for sudden . Schedule for [place] and will probably need PAT, thanks Previous Messages ----- Message ----- From: Barbara Woods Sent: 02/01/2023 10:11 AM EDT To: Rios Hope; Marjorie Lee MD Subject: FW: OKAY FOR LODI? Patient is currently scheduled in [facility] on 03/02/2023 with you. With what Kevin said is this patient even appropriate for ASC? He is OA. Please advise Barbara Woods Paper Bag Making Machinist ----- Message ----- From: Kevin Jane, RN Sent: 02/01/2023 10:00 AM EDT To: Barbara Woods Subject: RE: OKAY FOR LODI? Anesthesia and Dr. Lee stated that this patient should not be done in [place] due to AV measurement of 1.03. ----- Message ----- From: Barbara Woods Sent: 01/31/2023 8:02 AM EDT To: Kevin Jane RN Subject: OKAY FOR HYDABURG? Alexis Brown! This patient Is open access and is currently scheduled with us in [place] but wants this to be done in [place] instead. Dr. Lee wanted me to check with anesthesia prior to rescheduling him. Please let me know Thank you Barbara Woods [employer] Bag Making Machinist Message sent to [place] for approval. Once approved will contact patient with dates with Dr. Jesus Woods Paper Bag Making Machinist Patient call. He just received a call from someone in [place] he thinks. Does not know name of person who called him. Patient has not seen any provider in General Surgery in either [place] or [place]. States he has a colonoscopy procedure scheduled in [place] for 03/02/23 but he would rather have this done in [place]. He does not know who is supposed to do the colonoscopy. States his PCP DR Rivero ordered it. Can you please advise. Patient needs a call back and he also needs his colonoscopy prep. Please call patient back. [phone] (home) [phone] (cell) documented in this encounter [facility] 01-29-2023 History of Present illness Narrative Images from the original note were not included. Primary Care Pharmacy Visit CC (Reason for Consult): (E11.9, Z79.4) Type 2 diabetes mellitus without complication, with long-term current use of insulin (HCC) (primary encounter diagnosis) Goal(s): A1c <7% Last Collaborating Provider Visit: 11/14/[address] Rivero Erik Clarke is a 67 year old male presenting for follow up visit in person. Patient consents to pharmacy collaborative practice agreement. Last Pharmacy Visit: 09/04/22 - no medication changes; plan to focus on diet adjustments HPI: Currently following with endocrinology. GEOR[place]ES 01/04/23 - Ozempic stopped and Mounjaro 5 mg once weekly initiated. Tolerating well. Has taken 3 doses so far. Noticed some higher readings at first, but now has been better. States a couple months ago had noticed higher readings, so self-increased basal insulin dose to 50 units daily. States that he will only use 40 units if noticing lower blood sugar (in low 100s); has done this a few time in last weeks. Reports he has noticed lower blood pressure readings occasionally while at rehab. States he has only felt symptoms of dizziness a couple instances when this has happened. Not currently monitoring BP at home; needs new monitor. Current DM Medications: Metformin ER 500mg tabs - 1000mg BID Empagliflozin (Jardiance) 10mg daily Mounjaro 5 mg once weekly on Fridays Insulin glargine (Basaglar) 50 units daily every evening - taking between 40-50 units depending on blood sugar readings Past DM medications: Glimepiride - changed to insulin Ariella Moser - can't remember why he stopped it Jardiance 25mg - balanitis Diet Denies any recent changes Sometimes may snack later in evening GLYCEMIC CONTROL: Glucometer present at visit: Yes Hypoglycemia: Yes 1% per CGM data - reports some overnight episodes; denies symptoms CGM Data Past medical history reviewed. ALLERGIES No Known Allergies Current Outpatient Medications Medication Sig Dispense Refill tirzepatide (MOUNJARO) 5 mg/0.5 mL pen injector Inject 5 mg subcutaneously one time a week. 6 mL 3 empagliflozin (JARDIANCE) 10 mg tablet Take 1 tablet by mouth daily with breakfast. 90 tablet 3 insulin glargine (BASAGLAR KWIKPEN U-100 INSULIN) 100 unit/mL (3 mL) Inject 50 Units subcutaneously once daily. 45 mL 3 Blood-Glucose Meter,Continuous (DEXCOM G7 GENERATOR ASSEMBLER) [facility] to monitor glucose, IDDM, E 11.3293 Blood-Glucose Sensor (DEXCOM G7 SENSOR) yesenia Use one sensor every 10 days, IDDM, E 11.3293 rosuvastatin (CRESTOR) 10 mg tablet TAKE 1 TABLET ONCE DAILY 90 tablet 3 sildenafil (VIAGRA) 100 mg tablet Take 1 tablet by mouth as needed. 30-60 minutes before sexual intercourse. 10 tablet 1 lisinopril (ZESTRIL) 40 mg tablet Take 1 tablet by mouth once daily. 90 tablet 3 ticagrelor (BRILINTA) 90 mg tablet Take 1 tablet by mouth twice daily. 180 tablet 3 chlorthalidone (HYGROTON) 25 mg tablet TAKE 1 TABLET BY MOUTH EVERY DAY 90 tablet 3 metFORMIN ER (GLUCOPHAGE XR) 500 mg 24 hr tablet Take 2 tablets by mouth twice daily with meals. 360 tablet 3 metoprolol tartrate 75 mg tab Take 1 tablet by mouth twice daily. 180 tablet 3 amLODIPine (NORVASC) 10 mg tablet TAKE 1 TABLET ONCE DAILY 90 tablet 3 BD ULTRAFINE III MINI PEN 31 gauge x 3/16 USE AND DISCARD 1 PEN NEEDLE ONCE DAILY WITH INSULIN PEN 100 Each 3 blood sugar diagnostic (ACCU-CHEK LATIA PLUS TEST STRP) test strip Use to test blood sugars up to twice daily when CGM reading seems inaccurate. Insulin-dependent diabetes, E11.9 200 Strip 3 Blood Pressure Monitor 1 Each one time a week. (Patient not taking: Reported on 01/15/2023) 1 Kit 0 aspirin, enteric coated (ECOTRIN LOW STRENGTH) 81 mg EC tablet Take 1 tablet by mouth once daily. Lancets lancets Use as instructed to test glucose 2 times daily. 200 Each 1 Current Facility-Administered Medications Medication Dose Route Frequency Provider Last Rate Last Admin perflutren lipid microspheres 1.3 mL in NaCl (PF) 0.9% 10 mL injection (DEFINITY) INTRAVENOUS DIRECTED PRN Burke Barron, sodium chloride 0.9 % (flush) 10 mL (BD POSIFLUSH) 10 mL INTRAVENOUS DIRECTED PRN Burke Barron, DO Pill bottles are not present. Adherence: denies missed doses. Rx coverage: Payor: MEDICARE / Plan: MEDICARE A AND B / Product Type: Medicare / Medications affordable? Yes PHARMACOTHERAPY PREVENTATIVE MEDS: On MARY BETH/ARB: Yes On Statin: Yes On ASA: Yes EXAM: There were no vitals taken for this visit. Last 3 Encounter BP Readings: Date: BP: 01/15/2023 100/60 01/04/2023 132/80 11/14/2022 131/78 Wt: 90.3 kg (199 lb) BMI: 30.26 kg/(m^2) LABS: Lab Results Component Value Date HBA1C 7.7 11/14/2022 HBA1C 7.8 07/03/2022 HBA1C 7.8 05/12/2022 HBA1C 7.9 12/13/2021 HBA1C 9.1 04/05/2020 HBA1C 9.0 11/03/2019 HBA1C 8.4 03/14/2019 HBA1C 8.0 08/24/2018 Glucose 167 11/14/2022 BUN 18 11/14/2022 Creatinine 0.62 11/14/2022 Sodium 138 11/14/2022 Potassium 3.7 11/14/2022 Chloride 99 11/14/2022 CO2 24 11/14/2022 Protein, Total 7.5 11/14/2022 Albumin 4.7 11/14/2022 Calcium 10.2 11/14/2022 Alkaline Phosphatase 54 11/14/2022 Bilirubin, Total 0.9 11/14/2022 AST 21 11/14/2022 ALT 27 11/14/2022 Lab Results Component Value Date CHOL 107 05/12/2022 CHOL 146 04/05/2020 LDL 41 05/12/2022 LDL 53 04/05/2020 HDL 29 05/12/2022 HDL 31 04/05/2020 TG 187 05/12/2022 TG 310 04/05/2020 Albumin/Creat Ratio (mg/g) Date Value 05/12/2022 <21 eGFR-All Other Races Date Value 06/09/2021 >60 04/05/2020 >60 . Estimated Glomerular Filtration Rate (mL/min/1.73m ) Date Value 11/14/2022 104 ASSESSMENT/PLAN: 1. Type 2 diabetes mellitus without complication, with long-term current use of insulin ([facility]) - ICD9: 250.00, V58.67, ICD10: E11.9, Z79.4 - Improving control. A1c not at goal <7%; will be due for repeat A1c at end of this month. CGM data shows TIR not yet at goal, with episodes of nocturnal hypoglycemia. Patient giving variable dose of basal insulin based on glycemic control. Will decrease dose of basal insulin to reduce risk of hypoglycemia. Consider further titration of Mounjaro at future visits for additional glycemic control and to reduce insulin requirements. - Decrease Insulin glargine (Basaglar) to 45 units once daily - Continue Mounjaro 5 mg once weekly - Continue metformin ER 500mg tabs - 1000mg BID and Jardiance 10 mg daily - Statin prescribed - rosuvastatin - Blood glucose monitoring on a continuous glucose monitoring schedule - Counseled on healthy diet and regular exercise - Discussed diabetic education issues of diabetes complications and monitoring required and hypoglycemic/hyperglycemic symptoms - Follow up in 1 month, sooner should any other issues arise. 2. Medication Management Patient requesting new Rx for blood pressure monitor for home monitoring. Advised patient to record readings and bring in monitor to next visit to validate cuff. - Ordered BP monitoring kit to local pharmacy. If not covered, patient open to purchasing out of pocket - advised to check with local pharmacy for available monitors. Follow Up: Next PCP visit: 02/14/23 Next Endocrinology visit: 04/12/23 Next PharmD visit: 03/05/23 Ophelia Null PharmD Primary Care Clinical Industrial Hygiene Manager The majority of the pharmacy visit (> 50%) was spent counseling and/or coordinating care for the patient. interaction: face to face time was 30 minutes. documented in this encounter [facility] 01-29-2023 Instructions Ophelia Null RPh - 01/29/2023 9:30 AM EDT Decrease Basaglar to 45 units once daily See if the blood pressure monitor is covered otherwise have the pharmacist recommend one in the pharmacy. Start checking your blood pressure at home if you feel dizzy. Ophelia Null PharmD Primary Care Clinical Industrial Hygiene Manager documented in this encounter [facility] 01-15-2023 Instructions Fernanda Dimas APRN.CNP - 01/15/2023 3:57 PM EDT No medication changes today. No new testing for now. You will need an echo in June to look at your valve Ask ness about phase 3 cardiac rehab Follow up in 6 months documented in this encounter [facility] 01-15-2023 History of Present illness Narrative Images from the original note were not included. [facility] [place] [facility] Espinoza Department of Cardiovascular Medicine SECTION OF CLINICAL CARDIOLOGY OUTPATIENT VISIT DATE January 15, 2023 OUTPATIENT VISIT TYPE ESTABLISHED Elements of this note, including but not limited to HPI, ROS, Physical Exam, Assessment and Plan were copied and pasted from previous office visit notes completed within our department. Updates have been made where appropriate/noted and reflect current exam and medical decision making from date of this visit. Patient Name: Erik Clarke : 1955 PRIMARY CARE PHYSICIAN: Denis Rivero MD CHIEF COMPLAINT: Patient presents with: Follow Up: Denies cardiac concerns Interval Hx: Mr. Clarke comes for a follow up visit. The last office visit visit with Nanci Hernandez was 08/28/2022. Patient with 0 hospitalizations or ER visits since last OV. Since last office visit patient has been feeling good - I do not know why I am here. Doing cardiac rehab in [place] - feels it has been helpful. Getting BP checked there Taking meds as ordered No chest pain No SOB No D/L No syncope No falls. Taking DAPT - no GI/ bleeding - does have some epistaxis. Feels better overall since starting. Sleep is not great - trouble staying asleep No PND, no orthopnea + Nocturia Diet is fair - good protein intake - cooks mostly at home Fluid intake is good. Checking blood pressure at home - no exact readings. IMPRESSION/PLAN: 1. Coronary artery disease - [facility] 2005 with minimal lumen irregularities in the LAD and no obstructive disease - Pharm MPI 01/02/22 with no inducible ischemia or scar - [facility] 07/11/2022: Severe 70% mid OM1 disease s/p PCI with CATRACHITA. Mild nonobstructive disease in RCA and luminal irregularities in LAD - Patient appears compensated from cardiac standpoint - Continue ASA, Brilinta, Statin and BB as currently ordered - Most recent LDL 38 - this is at goal of <70 - currently participating in Cardiac rehab phase II - DAPT compliance reviewed --> patient reports taking as ordered. 2. Aortic stenosis - Echocardiogram 06/2021: Mild due to calcified valve with Pk/Mn gradient 40/25 mmHg (30/17 mmHg in 2019) MAIRA 1.41 cm - Echocardiogram 06/2022: Moderately severe with Pk/Mn gradient 66/38 mmHg. MAIRA 1.03 cm - Periodic echocardiogram monitoring --> plan to recheck in June 2023. 3. Diastolic dysfunction - Echocardiogram 06/2022 with EF 57% and grade I LVDD - Continue chlorthalidone - Appears euvolemic on exam - Encouraged to monitor sodium and fluid intake as well as daily weights 4. Bradycardia with syncope - Syncope with HR in the 30's 03/2019 in the setting of Diltiazem and metoprolol use - 30 day monitor 05/2019 primarily NSR with intermittent 1st degree AV block. Average HR 82 and minimum HR 71 bpm - 14 day Zio predominately SR with 1st degree AV block present. Avg HR 84 and no significant arrhythmias. Symptoms associated with SR 5. Essential hypertension - Optimal control on amlodipine 10 mg daily, Lisinopril 40 mg daily, chlorthalidone 25 mg daily and Lopressor 75 mg BID - Encouraged dietary sodium restriction/DASH diet - Reviewed risks of HTN and principles of treatment - Goal of BP <130/80 6. Mixed hyperlipidemia - Currently on Rosuvastatin 10 mg - Last lipid panel 04/2022 with LDL 41 7. Tobacco use - prior 1 ppd smoker - Quit ~10 years ago 8. Sleep apnea - Per patient diagnosed ~25 years ago requiring CPAP - PSG 06/2015 with normal AHI - Worsening fatigue and daytime hypersomnolence - PSG previously recommended and not scheduled I spent a total of 34 minutes on the date of the service which included preparing to see the patient, [id number] patient care, completing clinical documentation, performing a medically appropriate examination, counseling and educating the patient/family/caregiver, ordering medications, tests, or procedures, and communicating results to the patient/family/caregiver. Thank you very much for allowing me to assist in the care of Erik Clarke. The above information was discussed at length and detail with the patient who verbalized an understanding of the plan and was given ample opportunity to ask questions. The appropriate follow up has been arranged. I have advised the patient to contact me if any questions/problems arise prior to the follow up. Fernanda Dimas APRN.[facility] Cardiology Nurse Practitioner Section of Regional Cardiology [facility] Dept of Cardiovascular Medicine [facility] [place] [address] [place] [id number] Office Office January 15, 2023 9:09 AM This note was partially generated using [employer] voice recognition system and may contain errors related to that system including grammar, punctuation, spelling, and words that may be inappropriate. CARDIAC STUDIES: LV Ejection Fraction (%) Date Value 07/06/2022 57 06/30/2021 57 05/16/2019 69 08/29/2018 61 Last ECHO Result Conclusion ECHO Collected: 07/06/2022 7:11 AM (Final result) Impression: CONCLUSIONS: - Exam indication: Aortic stenosis - The left ventricle is normal in size. Left ventricular systolic function is normal. EF = 57 5% (2D biplane) Grade I left ventricular diastolic dysfunction. - The right ventricle is normal in size. Right ventricular systolic function is normal. - The right atrial cavity is mildly dilated. - There is moderately severe aortic valve stenosis. AV area is 1.03 cm (0.48 cm /m ) by continuity, VTI. The peak gradient is 66 mmHg, the mean gradient is 38 mmHg and the dimensionless valve index is 0.30. Mild 1+ aortic regurgitation. Prior gradients were 40/25 mmHg. - Estimated right ventricular systolic pressure is likely underestimated due to a weak or incomplete tricuspid regurgitation signal and is, at least, 19 mmHg consistent with normal pulmonary artery pressures. Estimated right atrial pressure is 3 mmHg based on IVC assessment. - Exam was compared with the prior echocardiographic exam performed on 06/30/21. The aortic stenosis is now moderately severe (Prior was moderate). The aortic regurgitation is now mild. * * * Final * * * Last EKG Result Conclusion ECG COMPLETE Collected: 08/28/2022 8:07 AM (Final result) Impression: NORMAL SINUS RHYTHM LEFT AXIS DEVIATION MINIMAL VOLTAGE CRITERIA FOR LVH, MAY BE NORMAL VARIANT ( [place] product ) ANTEROSEPTAL MYOCARDIAL INFARCTION , AGE UNDETERMINED ABNORMAL ECG Confirmed by MD BARRON GREGORY () on 08/29/2022 2:07:20 PM LABS: Sodium Date Value 11/14/2022 138 mmol/L 07/03/2022 138 mmol/L 04/05/2020 139 mmol/L 04/25/2019 139 mEq/L Potassium Date Value 11/14/2022 3.7 mmol/L 07/03/2022 3.6 mmol/L 04/05/2020 3.8 mmol/L 04/25/2019 3.5 mEq/L BUN (mg/dL) Date Value 11/14/2022 18 07/03/2022 20 03/04/2022 26 12/13/2021 21 04/05/2020 18 04/25/2019 16 04/24/2019 18 04/23/2019 31 Creatinine (mg/dL) Date Value 11/14/2022 0.62 07/03/2022 0.66 03/04/2022 0.80 12/13/2021 0.73 04/05/2020 0.71 04/25/2019 0.56 04/24/2019 0.67 04/23/2019 0.86 Magnesium (mg/dL) Date Value 04/24/2019 2.0 01/19/2017 2.4 Hemoglobin (g/dL) Date Value 07/03/2022 15.1 03/04/2022 15.0 04/05/2020 16.9 08/24/2018 15.4 HGB (g/dL) Date Value 04/25/2019 14.7 04/24/2019 14.8 No results found for: PROBNP No results found for: HSTNT Cholesterol, Total (mg/dL) Date Value 05/12/2022 107 04/05/2020 146 HDL Cholesterol (mg/dL) Date Value 05/12/2022 29 04/05/2020 31 Triglyceride (mg/dL) Date Value 05/12/2022 187 04/05/2020 310 LDL Cholesterol (mg/dL) Date Value 05/12/2022 41 04/05/2020 53 TSH (mIU/L) Date Value 03/04/2022 1.370 PT INR (no units) Date Value 12/27/2016 1.0 INR (no units) Date Value 04/22/2019 1.05 There were no tests performed for review. PHYSICAL EXAMINATION: Vitals: BP 100/60 Pulse 78 Ht 172.7 cm (5' 8) Wt 90.3 kg (199 lb) SpO2 98% BMI 30.26 kg/m General: Well appearing, in no acute distress. Skin: No clubbing, no cyanosis. Eyes: Extra ocular movements intact Oropharynx: Teeth in good repair. Neck: No jugular venous distention, no carotid bruits, carotids have a normal upstroke, no palpable thyromegaly. Lungs: Clear to auscultation bilaterally, no wheezing or rhonchi. Heart: Regular rhythm, PMI not displaced, S1, S2 normal, no S3, no S4, no heaves, no rub and no murmur. Abdomen: Soft, nontender, bowel sounds normal, no palpable organomegaly, no bruits. Extremities: No peripheral edema . Grade 2/4 distal pulses bilaterally. Neuro: Oriented to person, place and time, alert, cooperative, gait coordinated. REVIEW OF SYSTEMS: GENERAL: Negative for: Weight loss or gain, Fever or Chills, Weakness and Sleep difficulties. HEENT: Negative for: Headache, Impaired Vision, Glasses, Hearing Impairment, Ringing in Ears, Nosebleeds, Poor dental care, Bleeding Gums, Dentures NECK: Negative for: Swelling, Pain, Stiffness RESPIRATORY: Negative for: Cough, Blood in Sputum, Shortness of breath, Wheezing, Apnea GASTROINTESTINAL: Negative for: Trouble swallowing, Heartburn, Change in bowel habits, Blood in stool, Dark black stools MUSCULOSKELETAL: Negative for: Muscle or joint pain, Stiffness , Joint swelling NEUROLOGIC/PSYCHIATRIC: Negative for: Weakness, Paralysis, Numbness, Tingling, Tremor, Nervousness, Depressed mood, Memory loss SKIN: Negative for: Rashes, Itching HEMATOLOGICAL/LYMPHATIC: Negative for: Easy bruising , Easy bleeding ENDOCRINE: Negative for: Heat or cold intolerance, Excessive sweating, Frequent urination, Frequent thirst ALLERGIES: Patient has no known allergies. PAST MEDICAL HISTORY: PAST MEDICAL HISTORY Diagnosis Date BPH (benign prostatic hypertrophy) with urinary retention 01/22/2012 Bradycardia ED (erectile dysfunction) Hyperlipidemia LDL goal < 100 01/22/2012 Hypertension 01/22/2012 Obesity Type 2 diabetes mellitus not at goal 01/22/2012 SOCIAL HISTORY: Social History Tobacco Use Smoking status: Former Types: Cigarettes Quit date: 01/21/2010 Years since quittin.9 Smokeless tobacco: Current Types: Chew Vaping Use Vaping Use: Never used Substance Use Topics Alcohol use: No Drug use: No FAMILY HISTORY: FAMILY HISTORY Problem Relation Age of Onset Diabetes Mother Heart Father Diabetes Father I have confirmed and edited as necessary, the PFSH and ROS obtained by others. Fernanda Dimas APRN.[facility] CURRENT MEDICATIONS: Current Outpatient Medications Medication Sig tirzepatide (MOUNJARO) 5 mg/0.5 mL pen injector Inject 5 mg subcutaneously one time a week. empagliflozin (JARDIANCE) 10 mg tablet Take 1 tablet by mouth daily with breakfast. insulin glargine (BASAGLAR KWIKPEN U-100 INSULIN) 100 unit/mL (3 mL) Inject 50 Units subcutaneously once daily. Blood-Glucose Meter,Continuous (DEXCOM G7 GENERATOR ASSEMBLER) [facility] [place] continuously to monitor glucose, IDDM, E 11.3293 Blood-Glucose Sensor (DEXCOM G7 SENSOR) [place] Use one sensor every 10 days, IDDM, E 11.3293 rosuvastatin (CRESTOR) 10 mg tablet TAKE 1 TABLET ONCE DAILY sildenafil (VIAGRA) 100 mg tablet Take 1 tablet by mouth as needed. 30-60 minutes before sexual intercourse. lisinopril (ZESTRIL) 40 mg tablet Take 1 tablet by mouth once daily. ticagrelor (BRILINTA) 90 mg tablet Take 1 tablet by mouth twice daily. chlorthalidone (HYGROTON) 25 mg tablet TAKE 1 TABLET BY MOUTH EVERY DAY metFORMIN ER (GLUCOPHAGE XR) 500 mg 24 hr tablet Take 2 tablets by mouth twice daily with meals. metoprolol tartrate 75 mg tab Take 1 tablet by mouth twice daily. amLODIPine (NORVASC) 10 mg tablet TAKE 1 TABLET ONCE DAILY BD ULTRAFINE III MINI PEN 31 gauge x 3/16 USE AND DISCARD 1 PEN NEEDLE ONCE DAILY WITH INSULIN PEN blood sugar diagnostic (ACCU-CHEK LATIA PLUS TEST STRP) test strip Use to test blood sugars up to twice daily when CGM reading seems inaccurate. Insulin-dependent diabetes, E11.9 Blood Pressure Monitor 1 Each one time a week. aspirin, enteric coated (ECOTRIN LOW STRENGTH) 81 mg EC tablet Take 1 tablet by mouth once daily. Lancets lancets Use as instructed to test glucose 2 times daily. Current Facility-Administered Medications Medication Dose Route Frequency perflutren lipid microspheres 1.3 mL in NaCl (PF) 0.9% 10 mL injection (DEFINITY) INTRAVENOUS DIRECTED PRN sodium chloride 0.9 % (flush) 10 mL (BD POSIFLUSH) 10 mL INTRAVENOUS DIRECTED PRN documented in this encounter [facility] 01-04-2023 Instructions Sunshine Banuelos APRN.ANNIE - 01/04/2023 8:20 AM EDT Continue jardiance, metformin. Continue basaglar 50 units daily Stop Ozempic Start Mounjaro 5 mg once weekly Follow up in 3 months Sunshine Banuelos, DAMIAN, HOME PERFORMANCE LABORER, CARDIOLOGY PHYSICIAN ASSISTANT-C, CDE Endocrinology [facility] Medical Office [facility]/[address], [address] [place], [place] [address] Fax: documented in this encounter [facility] 01-04-2023 Procedure note Procedure(s): EXTERNAL GENERATOR ASSEMBLER, CGM SYS Images from the original note were not included. documented in this encounter [facility] 01-04-2023 History of Present illness Narrative Reason for Consultation: DM Type 2 Referring Physician: Denis Rivero [address] [place] [address] HISTORY OF PRESENT ILLNESS Mr. Clarke is a 67 year old male presenting here today for a follow up of DM Type 2. As I recall, he was initially diagnosed with diabetes 2006. 07/07/22 A1C 7.7 on 11/14/22 History of diabetes, hypertension, hyperlipidemia, obesity, ED, BPH Doing well. Admits to eating bad stuff at 2 AM. Fearful of hypoglycemia--if he wakes at 1 or 2 am and his BG is 90's to 100 he worries about a low then he eats and is high later so he keeps increasing his insulin. Also states eating overnight is a habit. Now using Dexcom G7 One episode of balanitis which resolved. He has been working with the pharmacist([facility] 07/03/22) on DM control as well. He is under the care of pain management, cardiology Current diabetes regimen is as follows: ozempic 2 mg weekly jardiance 10 mg daily--reduced from 25 mg daily after episode of balanitis Metformin ER 2 tabs BID Basaglar 44 units daily night --now taking 50 units Previous DM medication: Glimepiride Ariella Neves he is checking his blood glucose continuously using Dexcom G7 CGM he does bring a log book today for review. LDE Blood Sugar Frequency: BG ranges: 90 to 275 Dexcom G7 14 day download (12/22/22 to 01/04/23) --see procedure note In range 56% High 35% Very high 8% Low<1% Very low 0% Avg gluocose 181 Estimated A1C 7.6 BG is highest from 3 AM to 6 AM Stable readings at goal from 6 AM 4 pm BG rises at 4 pm Hypoglycemia frequency: rare Hypoglycemia awareness: Yes Regarding symptoms of hypoglycemia, he is not experiencing any symptoms such as polyuria, polydipsia, nocturia or rapid weight loss or blurry vision, Overall, the patient has no acute complaints at this time. PAST MEDICAL HISTORY Diagnosis Date BPH (benign prostatic hypertrophy) with urinary retention 01/22/2012 Bradycardia ED (erectile dysfunction) Hyperlipidemia LDL goal < 100 01/22/2012 Hypertension 01/22/2012 Obesity Type 2 diabetes mellitus not at goal 01/22/2012 PAST SURGICAL HISTORY Procedure Laterality Date CARDIAC CATHETERIZATION HX 1999, 2004 no blockages, mildly leaky valve LEFT HEART CATH,PERCUTANEOUS 06/2022 stent placed PAST SURGICAL HISTORY OF 12/2015 L3-S1 laminectomy, decompression PAST SURGICAL HISTORY OF 01/16/2017 Lumbar reexploration L3-S1 with laminectomy and decompression FAMILY HISTORY Problem Relation Age of Onset Diabetes Mother Heart Father Diabetes Father Social History Tobacco Use Smoking status: Former Types: Cigarettes Quit date: 01/21/2010 Years since quittin.9 Smokeless tobacco: Current Types: Chew Vaping Use Vaping Use: Never used Substance Use Topics Alcohol use: No Drug use: No Allergies As of Date: 01/04/2023 (No Known Allergies) Fully Assessed 01/04/2023 Current Outpatient Medications Medication Sig Dispense Refill rosuvastatin (CRESTOR) 10 mg tablet TAKE 1 TABLET ONCE DAILY 90 tablet 3 empagliflozin (JARDIANCE) 10 mg tablet TAKE 1 TABLET DAILY WITH BREAKFAST 90 tablet 0 sildenafil (VIAGRA) 100 mg tablet Take 1 tablet by mouth as needed. 30-60 minutes before sexual intercourse. 10 tablet 1 lisinopril (ZESTRIL) 40 mg tablet Take 1 tablet by mouth once daily. 90 tablet 3 ticagrelor (BRILINTA) 90 mg tablet Take 1 tablet by mouth twice daily. 180 tablet 3 Blood-Glucose Meter,Continuous (DEXCOM G6 GENERATOR ASSEMBLER) [facility] [place] to check blood sugar at least four (4) times daily. 1 Each 0 Blood-Glucose Transmitter (DEXCOM G6 TRANSMITTER) [place] Apply new transmitter every 90 days. Clean transmitter with an alcohol swab with each sensor change. 1 Each 3 Blood-Glucose Sensor (DEXCOM G6 SENSOR) [place] Apply new sensor every ten (10) days to abdomen. 9 Each 3 chlorthalidone (HYGROTON) 25 mg tablet TAKE 1 TABLET BY MOUTH EVERY DAY 90 tablet 3 semaglutide (OZEMPIC) 2 mg/dose (8 mg/3 mL) pen injector Inject 2 mg subcutaneously one time a week. 9 mL 3 metFORMIN ER (GLUCOPHAGE XR) 500 mg 24 hr tablet Take 2 tablets by mouth twice daily with meals. 360 tablet 3 insulin glargine (BASAGLAR KWIKPEN U-100 INSULIN) 100 unit/mL (3 mL) Inject 44 Units subcutaneously once daily. 45 mL 3 metoprolol tartrate 75 mg tab Take 1 tablet by mouth twice daily. 180 tablet 3 amLODIPine (NORVASC) 10 mg tablet TAKE 1 TABLET ONCE DAILY 90 tablet 3 BD ULTRAFINE III MINI PEN 31 gauge x 3/16 USE AND DISCARD 1 PEN NEEDLE ONCE DAILY WITH INSULIN PEN 100 Each 3 blood sugar diagnostic (ACCU-CHEK LATIA PLUS TEST STRP) test strip Use to test blood sugars up to twice daily when CGM reading seems inaccurate. Insulin-dependent diabetes, E11.9 200 Strip 3 Blood Pressure Monitor 1 Each one time a week. 1 Kit 0 aspirin, enteric coated (ECOTRIN LOW STRENGTH) 81 mg EC tablet Take 1 tablet by mouth once daily. Lancets lancets Use as instructed to test glucose 2 times daily. 200 Each 1 Current Facility-Administered Medications Medication Dose Route Frequency Provider Last Rate Last Admin perflutren lipid microspheres 1.3 mL in NaCl (PF) 0.9% 10 mL injection (DEFINITY) INTRAVENOUS DIRECTED PRN Burke Barron DO sodium chloride 0.9 % (flush) 10 mL (BD POSIFLUSH) 10 mL INTRAVENOUS DIRECTED PRN Burke Barron Jose, DO REVIEW OF SYSTEMS Review of Systems Respiratory: Negative for difficulty breathing. Cardiovascular: Negative for chest pain. Gastrointestinal: Negative for nausea, vomiting, diarrhea and constipation. PHYSICAL EXAMINATION BP 132/80 Pulse 75 Resp 16 Ht 172.7 cm (5' 7.99) Wt 91.4 kg (201 lb 6.4 oz) SpO2 98% BMI 30.63 kg/m2 Physical Exam Constitutional: Appearance: Normal appearance. He is obese. Cardiovascular: Rate and Rhythm: Normal rate and regular rhythm. Pulmonary: Effort: Pulmonary effort is normal. Breath sounds: Normal breath sounds. Skin: General: Skin is warm and dry. Neurological: Mental Status: He is alert and oriented to person, place, and time. Psychiatric: Mood and Affect: Mood normal. Behavior: Behavior normal. DATA Creatinine Date Value Ref Range Status 11/14/2022 0.62 (L) 0.73 - 1.22 mg/dL Final Hemoglobin A1C (%) Date Value 11/14/2022 7.7 04/05/2020 9.1 Hemoglobin A1C (POCT) (%) Date Value 12/13/2021 7.9 ) No components found for: URINEALBUMIN Cholesterol, Total (mg/dL) Date Value 05/12/2022 107 04/05/2020 146 HDL Cholesterol (mg/dL) Date Value 05/12/2022 29 04/05/2020 31 LDL Cholesterol (mg/dL) Date Value 05/12/2022 41 04/05/2020 53 Triglyceride (mg/dL) Date Value 05/12/2022 187 04/05/2020 310 IMPRESSION: Mr. Clarke is a 67 year old male here for evaluation of DM Type 2 complicated by hypertension, hyperlipidemia, obesity RECOMMENDATIONS: (E11.3293, Z79.4) Type 2 diabetes mellitus with both eyes affected 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, with long-term current use of insulin ([facility]) (primary encounter diagnosis) Comment: Glycemic control is close to goal. Will switch Ozempic to Mounjaro. He is being monitored by ophthalmology/retinal specialist for retinopathy. Last exam was 10/2022 Plan: tirzepatide (MOUNJARO) 5 mg/0.5 mL pen injector, empagliflozin (JARDIANCE) 10 mg tablet, insulin glargine (BASAGLAR KWIKPEN U-100 INSULIN) 100 unit/mL (3 mL), Blood-Glucose Meter,Continuous (DEXCOM G7 GENERATOR ASSEMBLER) misc, Blood-Glucose Sensor (DEXCOM G7 SENSOR) [place] Continue jardiance, metformin. Continue basaglar 50 units daily Stop Ozempic Start Mounjaro 5 mg once weekly Follow up in 3 months (I10) Essential hypertension Comment/Plan: managed per PCP; pharmacy (E66.9) Obesity, Class I, BMI 30-34.9 Comment: Body mass index is 30.63 kg/m . Plan: Encouraged increase dietary and exercise efforts as able I spent a total of 30 minutes on the date of the service which included preparing to see the patient, [id number] patient care, completing clinical documentation, obtaining and/or reviewing separately obtained history, performing a medically appropriate examination, counseling and educating the patient/family/caregiver, ordering medications, tests, or procedures, and communicating results to the patient/family/caregiver. Sunshine Banuelos, MSN, HOME PERFORMANCE LABORER, CARDIOLOGY PHYSICIAN ASSISTANT-C, CDE Endocrinology [facility] Medical Office [facility]/[address] [place] [address] Fax: documented in this encounter [facility] 12-26-2022 Miscellaneous Notes Pharmacy verified in [employer]. Patient has been identified by name and date of : Yes Patient aware RX will be sent to pharmacy. No need to notify patient. Patient phones for refill(s): Requested Prescriptions Pending Prescriptions Disp Refills rosuvastatin (CRESTOR) 10 mg tablet [Pharmacy Med Name: ROSUVASTATIN TAB 10MG] 90 tablet 3 Sig: TAKE 1 TABLET ONCE DAILY Date of last office visit : 11/14/2022 Date of next office visit : 02/14/2023 Last 2 Encounter Wt Readings: Date: Wt: 11/14/2022 90.8 kg (200 lb 1.6 oz) 08/28/2022 91.1 kg (200 lb 14.4 oz) Cholesterol: Triglyceride (mg/dL) Date Value 05/12/2022 187 04/05/2020 310 HDL Cholesterol (mg/dL) Date Value 05/12/2022 29 04/05/2020 31 LDL Cholesterol (mg/dL) Date Value 05/12/2022 41 04/05/2020 53 ALT (U/L) Date Value 11/14/2022 27 04/05/2020 20 Non HDL Cholesterol (mg/dL) Date Value 05/12/2022 78 04/05/2020 115 Please advise. Diann Green MA documented in this encounter [facility] 12-26-2022 Miscellaneous Notes Requester: Pharmacy Last Visit in Endocrinology: Provider name: Sunshine Banuelos CNP , Date 07/07/2022 Next Scheduled Appt in Endo: 01/04/2023 Last Refill: 12/13/2021 Number of Refills given: 3 Requested Prescriptions Pending Prescriptions Disp Refills JARDIANCE 10 mg tablet [Pharmacy Med Name: JARDIANCE TAB 10MG] 90 tablet 3 Sig: TAKE 1 TABLET DAILY WITH BREAKFAST Please review and advise. Onelia Crowder RN documented in this encounter [facility] 11-20-2022 Miscellaneous Notes Completed Request were sent with confirmation. (f) [phone] Forms placed in Ma's (Med Clearance) file. Received Medical clearance from [facility] for provider to review and sign. Forms placed in providers box. Once completed please send to : (f): Please route to [place] for completion. documented in this encounter [facility] 11-17-2022 Miscellaneous Notes Mild diabetic retinopathy Received patient's Diabetic Eye Exam (dos: 11/16/22) from [facility] placed in provider's in box to be for reviewed & signed with providers approval to be sent to scanning. Perla Don) documented in this encounter [facility] 09-22-2022 Miscellaneous Notes Cardiac rehab order placed. Nanci Hernandez APRN.ANNIE Dell from [facility] calling requesting order to be faxed to [phone] along with EKG, Office note, surgical note. documented in this encounter [facility] 09-04-2022 History of Present illness Narrative Images from the original note were not included. Primary Care Pharmacy Visit CC (Reason for Consult): Diabetes Goal: A1c < 7% Collaborating Provider: Dr. Rivero Last Provider Visit: 07/03/22 Erik Clarke is a 66 year old male presenting for follow up visit in person. Patient consents to pharmacy collaborative practice agreement. Patient is presenting today for f/up pharmacotherapy management appointment for diabetes. At last PharmD visit on 07/03, no med changes since Bgs at goal. At last [facility] appt, patient seen for dog bite. On 07/11 patient had heart cath with sten placement. In June patient contacted PharmD indicating Dexcom G7 may be cheaper through [employer] so order sent. In July fenofibrate was stopped and f/up lipid panel ordered. No med changes made during cardiology visit on 08/28. Subjective: HPI: Feeling a little better since had stent placed. Not feeling as winded though admits has not exerted himself too much recently. Planning to start cardiac rehab. Received the Dexcom G6, likes it so far. Admits middle of night snacking is an issue. Current DM Medications: Metformin ER 500mg tabs - 1000mg BID Empagliflozin (Jardiance) 10mg daily Semaglutide (Ozempic) 2mg weekly Insulin glargine (Basaglar) 44 units daily every evening Past DM medications: Glimepiride - changed to insulin Ariella Moser - can't remember why he stopped it Jardiance 25mg - yasmine Current HTN Medications: Lisinopril 40mg daily Metoprolol tartrate 75mg BID Amlodipine 10mg daily Chlorthalidone 25mg daily GLYCEMIC CONTROL: *Went to [employer], had 2 hot dogs and fries around lunchtime Preventative Medications: On MARY BETH/ARB: Yes On Statin: Yes ROS: Patient denies CP, SOB, MORGAN, blurred vision, dizziness or lightheadedness Patient denies symptoms of hypoglycemia (sweating, anxiety, palpitations, hunger, and tremor) Patient denies symptoms of hyperglycemia (polyuria, polydipsia, polyphagia) Patient denies potential medication adverse effects DIET/EXERCISE/SOCIAL Hx: Stopped diet pop, drinking more water Admits he wakes up in middle of night and will eat a snack (5+x/week), PB sandwich, PB&J sandwich; did NOT snack last night Not snacking before bed Trying to walk more MEDICATIONS: Pill bottles are not present Adherence: denies missed doses Pharmacy: [facility]; [facility] in [place] Rx coverage: [facility] Medicare Affordability: no issues Diabetes supplies: 37coins Organization System: pill box ACTIVE PROBLEM LIST Type 2 Diabetes Mellitus With Both Eyes Affected By Mild Nonproliferative Retinopathy Without Macular Edema, With Long-Term Current Use of Insulin (Hcc) Hypertension Hyperlipidemia Benign Prostatic Hyperplasia With Lower Urinary Tract Symptoms Colon Polyps Erectile Dysfunction Prolapsed Lumbar Disc Stable Angina (Hcc) Chewing Tobacco Nicotine Dependence Without Complication Lumbar Spondylosis Ddd (Degenerative Disc Disease), Lumbar Lumbar Radiculopathy Bradycardia Nicotine use disorder, F17.2 Non-Rheumatic Aortic Stenosis Coronary Artery Disease Involving Ak Chin Coronary Artery of Ak Chin Heart Without Angina Pectoris Rotator Cuff Syndrome of Left Shoulder Obesity, Class I, Bmi 30-34.9 Status Post Insertion of Drug Eluting Coronary Artery Stent PAST MEDICAL HISTORY Diagnosis Date BPH (benign prostatic hypertrophy) with urinary retention 01/22/2012 Bradycardia ED (erectile dysfunction) Hyperlipidemia LDL goal < 100 01/22/2012 Hypertension 01/22/2012 Obesity Type 2 diabetes mellitus not at goal 01/22/2012 ALLERGIES No Known Allergies Medication List Medication Directions Comments Action/Plan amLODIPine (NORVASC) 10 mg tablet TAKE 1 TABLET ONCE DAILY aspirin, enteric coated (ECOTRIN LOW STRENGTH) 81 mg EC tablet Take 1 tablet by mouth once daily. BD ULTRAFINE III MINI PEN 31 gauge x 3/16 USE AND DISCARD 1 PEN NEEDLE ONCE DAILY WITH INSULIN PEN Blood Pressure Monitor 1 Each one time a week. blood sugar diagnostic (ACCU-CHEK LATIA PLUS TEST STRP) test strip Use to test blood sugars up to twice daily when CGM reading seems inaccurate. Insulin-dependent diabetes, E11.9 Blood-Glucose Meter,Continuous (DEXCOM G6 GENERATOR ASSEMBLER) [facility] Use to check blood sugar at least four (4) times daily. Blood-Glucose Sensor (DEXCOM G6 SENSOR) yesenia Apply new sensor every ten (10) days to abdomen. Blood-Glucose Transmitter (DEXCOM G6 TRANSMITTER) yesenia Apply new transmitter every 90 days. Clean transmitter with an alcohol swab with each sensor change. chlorthalidone (HYGROTON) 25 mg tablet TAKE 1 TABLET BY MOUTH EVERY DAY empagliflozin (JARDIANCE) 10 mg tablet Take 1 tablet by mouth daily with breakfast. insulin glargine (BASAGLAR KWIKPEN U-100 INSULIN) 100 unit/mL (3 mL) Inject 44 Units subcutaneously once daily. Lancets lancets Use as instructed to test glucose 2 times daily. lisinopril (ZESTRIL) 40 mg tablet Take 1 tablet by mouth once daily. metFORMIN ER (GLUCOPHAGE XR) 500 mg 24 hr tablet Take 2 tablets by mouth twice daily with meals. metoprolol tartrate 75 mg tab Take 1 tablet by mouth twice daily. rosuvastatin (CRESTOR) 10 mg tablet TAKE 1 TABLET ONCE DAILY semaglutide (OZEMPIC) 2 mg/dose (8 mg/3 mL) pen injector Inject 2 mg subcutaneously one time a week. sildenafil (VIAGRA) 100 mg tablet Take 1 tablet by mouth as needed. 30-60 minutes before sexual intercourse. ticagrelor (BRILINTA) 90 mg tablet Take 1 tablet by mouth twice daily. Objective: Exam: Last 3 Encounter BP Readings: Date: BP: 08/28/2022 128/72 07/07/2022 136/77 07/03/2022 121/76 Wt: 91.1 kg (200 lb 14.4 oz) BMI: 30.55 kg/(m^2) LABS: Reviewed Lab Results Component Value Date HBA1C 7.8 07/03/2022 HBA1C 7.8 05/12/2022 HBA1C 7.9 12/13/2021 HBA1C 7.8 06/09/2021 HBA1C 9.1 04/05/2020 HBA1C 9.0 11/03/2019 HBA1C 8.4 03/14/2019 HBA1C 8.0 08/24/2018 CMP: Glucose 125 07/03/2022 BUN 20 07/03/2022 Creatinine 0.66 07/03/2022 Sodium 138 07/03/2022 Potassium 3.6 07/03/2022 Chloride 100 07/03/2022 CO2 26 07/03/2022 Protein, Total 7.5 03/04/2022 Albumin 4.7 03/04/2022 Calcium 10.2 07/03/2022 Alkaline Phosphatase 42 06/09/2021 Bilirubin, Total 0.6 03/04/2022 AST 19 03/04/2022 ALT 21 03/04/2022 Estimated Creatinine Clearance: 119.1 mL/min (A) (based on SCr of 0.66 mg/dL (L)). Lab Results Component Value Date CHOL 107 05/12/2022 CHOL 146 04/05/2020 LDL 41 05/12/2022 LDL 53 04/05/2020 HDL 29 05/12/2022 HDL 31 04/05/2020 TG 187 05/12/2022 TG 310 04/05/2020 The ASCVD Risk score (Nishi DK, et al., 2019) failed to calculate for the following reasons: The valid total cholesterol range is 130 to 320 mg/dL Albumin/Creat Ratio (mg/g) Date Value 05/12/2022 <21 PHARMACOTHERAPY ASSESSMENT/PLAN: 1. Type 2 diabetes mellitus without complication, with long-term current use of insulin ([facility]) - ICD9: 250.00, V58.67, ICD10: E11.9, Z79.4 A1c goal < 7%; uncontrolled (last A1c 7.8%); CGM report TIR just shy of goal; having occasional PPB elevations due to dietary indiscretions; also having significant spikes in middle of inght due to snacking; discussed possible insulin dose adjustment but patient prefers to improve diet; no med changes today, f/up for in-office visit after next A1c and endo visit; renal fxn and LFTs sufficient for use CONTINUE metformin ER 1000mg BID, Jardiance 10mg daily, Ozempic 2mg weekly, and Basaglar 44 units daily Encouraged to cut back on night-time snacking; consider doing any of the following: Stop snacking in middle of night (preferred). If need to snack, choose a low-carb, higher protein option. Incorporate a low carb, high protein snack before bed to avoid hunger in middle of night HbA1c: due 10/03 Follow-up Patient is scheduled to see PCP team on 11/14. Patient to have f/up with PharmD team on 01/29. Patient verbalized understanding of instructions. Hany Garcia PharmD, [facility] Primary Care Clinical Pharmacist The majority of the pharmacy visit (> 50%) was spent counseling and/or coordinating care for the patient. interaction: face to face time was 33 minutes. documented in this encounter [facility] 09-04-2022 Instructions Hany Garcia RPh - 09/04/2022 9:00 AM EDT Your snacking in the middle of the night is an issue. Please consider doing one or more of the following: - Stop snacking in middle of night - If snacking at night, try to choose a healthier options which is low carb and higher in protein - Try eating a snack in the evening after dinner that is low carb and high protein to help keep you full throughout the night documented in this encounter [facility] 08-28-2022 Instructions Nanci Hernandez APRN.ANNIE - 08/28/2022 8:30 AM EDT It was great to see you today, as we discussed: 1. Lisinopril is a 40 mg once a day medication. Please continue monitoring your blood pressure daily at home on this and let me know if it is consistently >130/80 2. I will look into cardiac rehab facilities closer to your house and call you to let you know 3. Please continue taking your aspirin and brilanta without interruption to avoid significant complications such as stent closure. If you need to stop either of this for any reason please talk with out office first 4. Follow up with Dr. Barron in 3-4 months or sooner if need arises documented in this encounter [facility] 08-28-2022 History of Present illness Narrative Images from the original note were not included. [facility] [place] John Espinoza Department of Cardiovascular Medicine SECTION OF CLINICAL CARDIOLOGY OUTPATIENT VISIT DATE August 28, 2022 OUTPATIENT VISIT TYPE ESTABLISHED PRIMARY CARE PHYSICIAN: Denis Rivero [address] [place] [address] CHIEF COMPLAINT: Follow up HISTORY OF PRESENT ILLNESS: Mr. Clarke is a 66 year old male with nonobstructive CAD, aortic stenosis, HTN, HLD, diastolic dysfunction, BPH, diabetes mellitus type 2, and tobacco use who presents today for a cardiovascular medicine follow-up visit. He was last seen in the office by Dr. 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 At that time LHC was recommended to rule out significant epicardial disease as well as repeat echocardiogram to assess his known moderate aortic stenosis. Plan was for follow-up in 6 weeks time. Echocardiogram completed 07/06 showed worsening of his aortic stenosis from moderate to moderately severe. He underwent LHC on 07/11 which demonstrated significant 90% stenosis of the mid OM1 for which he underwent successful PCI with CATRACHITA. Since his LHC he has noted improvement in his shortness of breath on exertion although admits he has not been very active since his stent. His cath site healed well without complication. He remains compliant on aspirin and Brilinta and denies any blood in the urine, stool, or melena. He is monitoring his blood pressure daily at home which is averaging 120/80. He denies any chest pain, shortness of breath, palpitations, lightheadedness, dizziness, presyncope, syncope, lower extremity edema, orthopnea, or PND. Subjective PAST MEDICAL HISTORY Diagnosis Date BPH (benign prostatic hypertrophy) with urinary retention 01/22/2012 Bradycardia ED (erectile dysfunction) Hyperlipidemia LDL goal < 100 01/22/2012 Hypertension 01/22/2012 Obesity Type 2 diabetes mellitus not at goal 01/22/2012 PAST SURGICAL HISTORY Procedure Laterality Date CARDIAC CATHETERIZATION HX 1999, 2004 no blockages, mildly leaky valve PAST SURGICAL HISTORY OF 12/2015 L3-S1 laminectomy, decompression PAST SURGICAL HISTORY OF 01/16/2017 Lumbar reexploration L3-S1 with laminectomy and decompression Social History Tobacco Use Smoking status: Former Types: Cigarettes Quit date: 01/21/2010 Years since quittin.6 Smokeless tobacco: Current Types: Chew Vaping Use Vaping Use: Never used Substance Use Topics Alcohol use: No Drug use: No FAMILY HISTORY Problem Relation Age of Onset Diabetes Mother Heart Father Diabetes Father ALLERGIES: ALLERGIES No Known Allergies MEDICATIONS: Blood-Glucose Meter,Continuous (DEXCOM G6 GENERATOR ASSEMBLER) misc^Use to check blood sugar at least four (4) times daily.^Disp: 1 Each^Rfl: 0 Blood-Glucose Transmitter (DEXCOM G6 TRANSMITTER) yesenia^Apply new transmitter every 90 days. Clean transmitter with an alcohol swab with each sensor change.^Disp: 1 Each^Rfl: 3 Blood-Glucose Sensor (DEXCOM G6 SENSOR) yesenia^Apply new sensor every ten (10) days to abdomen.^Disp: 9 Each^Rfl: 3 chlorthalidone (HYGROTON) 25 mg tablet^TAKE 1 TABLET BY MOUTH EVERY DAY^Disp: 90 tablet^Rfl: 3 semaglutide (OZEMPIC) 2 mg/dose (8 mg/3 mL) pen injector^Inject 2 mg subcutaneously one time a week.^Disp: 9 mL^Rfl: 3 metFORMIN ER (GLUCOPHAGE XR) 500 mg 24 hr tablet^Take 2 tablets by mouth twice daily with meals.^Disp: 360 tablet^Rfl: 3 insulin glargine (BASAGLAR KWIKPEN U-100 INSULIN) 100 unit/mL (3 mL)^Inject 44 Units subcutaneously once daily.^Disp: 45 mL^Rfl: 3 metoprolol tartrate 75 mg tab^Take 1 tablet by mouth twice daily.^Disp: 180 tablet^Rfl: 3 amLODIPine (NORVASC) 10 mg tablet^TAKE 1 TABLET ONCE DAILY^Disp: 90 tablet^Rfl: 3 BD ULTRAFINE III MINI PEN 31 gauge x /16^USE AND DISCARD 1 PEN NEEDLE ONCE DAILY WITH INSULIN PEN^Disp: 100 Each^Rfl: 3 rosuvastatin (CRESTOR) 10 mg tablet^TAKE 1 TABLET ONCE DAILY^Disp: 90 tablet^Rfl: 3 empagliflozin (JARDIANCE) 10 mg tablet^Take 1 tablet by mouth daily with breakfast.^Disp: 90 tablet^Rfl: 3 blood sugar diagnostic (ACCU-CHEK LATIA PLUS TEST STRP) test strip^Use to test blood sugars up to twice daily when CGM reading seems inaccurate. Insulin-dependent diabetes, E11.9^Disp: 200 Strip^Rfl: 3 sildenafil (VIAGRA) 100 mg tablet^Take 1 tablet by mouth as needed. 30-60 minutes before sexual intercourse.^Disp: 5 tablet^Rfl: 1 Blood Pressure Monitor^1 Each one time a week.^Disp: 1 Kit^Rfl: 0 aspirin, enteric coated (ECOTRIN LOW STRENGTH) 81 mg EC tablet^Take 1 tablet by mouth once daily.^Disp: ^Rfl: Lancets lancets^Use as instructed to test glucose 2 times daily.^Disp: 200 Each^Rfl: 1 lisinopril (ZESTRIL) 40 mg tablet^Take 1 tablet by mouth once daily.^Disp: 90 tablet^Rfl: 3 ticagrelor (BRILINTA) 90 mg tablet^Take 1 tablet by mouth twice daily.^Disp: 180 tablet^Rfl: 3 REVIEW OF SYSTEMS: CARD: See HPI GENERAL: Negative for: Weight loss or gain, Fever and/or Chills HEENT: Negative for: Headache, Impaired Vision, Glasses, Hearing Impairment, Ringing in Ears, Nosebleeds, Bleeding Gums NECK: Negative for: Swelling, Pain, Stiffness RESPIRATORY: Negative for: Cough, Blood in Sputum, Shortness of breath, Wheezing, Apnea GASTROINTESTINAL: Negative for: Nausea, Vomiting, Diarrhea, Blood in stool, or Dark black stools MUSCULOSKELETAL: Negative for: Muscle or joint pain, Stiffness , Joint swelling NEUROLOGIC: Negative for: focal numbness/weakness, headaches, visual changes, ataxia, speech/language loss SKIN: Negative for: Rashes, Itching HEMATOLOGICAL/LYMPHATIC: Negative for: Easy bruising , Easy bleeding ENDOCRINE: Negative for: Heat or cold intolerance, Excessive sweating, Frequent urination, Frequent thirst Objective PHYSICAL EXAMINATION: BP 128/72 Pulse 80 Ht 172.7 cm (5' 8) Wt 91.1 kg (200 lb 14.4 oz) SpO2 98% BMI 30.55 kg/m General: Well appearing, in no acute distress. Skin: No clubbing, no cyanosis. Eyes: Extra ocular movements intact Oropharynx: Teeth in good repair. Neck: No jugular venous distention, no carotid bruits, carotids have a normal upstroke. Lungs: Clear to auscultation bilaterally, no wheezing or rhonchi. Heart: Regular rhythm, S1, S2 normal, no S3, no S4, no heaves, no rub and 2/6 DK. No peripheral edema . Grade 2/4 distal pulses bilaterally. Abdomen: Soft, nontender, bowel sounds normal, no bruits. Neuro: Oriented to person, place and time, alert, cooperative, gait coordinated. CARDIOVASCULAR MEDICINE TESTING: Last ECHO Result Conclusion ECHO Collected: 07/06/2022 7:11 AM (Final result) Impression: CONCLUSIONS: - Exam indication: Aortic stenosis - The left ventricle is normal in size. Left ventricular systolic function is normal. EF = 57 5% (2D biplane) Grade I left ventricular diastolic dysfunction. - The right ventricle is normal in size. Right ventricular systolic function is normal. - The right atrial cavity is mildly dilated. - There is moderately severe aortic valve stenosis. AV area is 1.03 cm (0.48 cm /m ) by continuity, VTI. The peak gradient is 66 mmHg, the mean gradient is 38 mmHg and the dimensionless valve index is 0.30. Mild 1+ aortic regurgitation. Prior gradients were 40/25 mmHg. - Estimated right ventricular systolic pressure is likely underestimated due to a weak or incomplete tricuspid regurgitation signal and is, at least, 19 mmHg consistent with normal pulmonary artery pressures. Estimated right atrial pressure is 3 mmHg based on IVC assessment. - Exam was compared with the prior echocardiographic exam performed on 06/30/21. The aortic stenosis is now moderately severe (Prior was moderate). The aortic regurgitation is now mild. * * * Final * * * Last EKG Result Conclusion ECG COMPLETE Collected: 08/28/2022 8:07 AM (Preliminary result) Impression: NORMAL SINUS RHYTHM LEFT AXIS DEVIATION MINIMAL VOLTAGE CRITERIA FOR LVH, MAY BE NORMAL VARIANT ( Yamil product ) ANTEROSEPTAL MYOCARDIAL INFARCTION , AGE UNDETERMINED ABNORMAL ECG I have personally reviewed the Electrocardiogram. PLAN AND RECOMMENDATIONS: 1. Coronary artery disease - [facility] 2005 with minimal lumen irregularities in the LAD and no obstructive disease - Pharm MPI 01/02/22 with no inducible ischemia or scar - LHC 07/11/2022: Severe 70% mid OM1 disease s/p PCI with CATRACHITA. Mild nonobstructive disease in RCA and luminal irregularities in LAD - Patient appears compensated from cardiac standpoint - Continue ASA, Brilinta, Statin and BB as currently ordered - Most recent LDL 38 - this is at goal of <70 - Cardiac rehab phase II - DAPT compliance reviewed 2. Aortic stenosis - Echocardiogram 06/2021: Mild due to calcified valve with Pk/Mn gradient 40/25 mmHg (30/17 mmHg in 2019) MAIRA 1.41 cm - Echocardiogram 06/2022: Moderately severe with Pk/Mn gradient 66/38 mmHg. MAIRA 1.03 cm - Periodic echocardiogram monitoring 3. Diastolic dysfunction - Echocardiogram 06/2022 with EF 57% and grade I LVDD - Continue chlorthalidone - Appears euvolemic on exam - Encouraged to monitor sodium and fluid intake as well as daily weights 4. Bradycardia with syncope - Syncope with HR in the 30's 03/2019 in the setting of Diltiazem and metoprolol use - 30 day monitor 05/2019 primarily NSR with intermittent 1st degree AV block. Average HR 82 and minimum HR 71 bpm - 14 day Zio predominately SR with 1st degree AV block present. Avg HR 84 and no significant arrhythmias. Symptoms associated with SR 5. Essential hypertension - Optimal control on amlodipine 10 mg daily, Lisinopril 40 mg daily, chlorthalidone 25 mg daily and Lopressor 75 mg BID - Encouraged dietary sodium restriction/DASH diet - Reviewed risks of HTN and principles of treatment - Goal of BP <130/80 6. Mixed hyperlipidemia - Currently on Rosuvastatin 10 mg - Last lipid panel 05/2021 with LDL 38 - Normal LFTs 05/2021 7. Tobacco use - prior 1 ppd smoker - Quit ~10 years ago 8. Diabetes mellitus type 2 9. Sleep apnea - Per patient diagnosed ~25 years ago requiring CPAP - PSG 06/2015 with normal AHI - Worsening fatigue and daytime hypersomnolence - PSG previously recommended and not scheduled CONCLUSION: Patient presents today for follow-up after recent PCI to OM an appears to be doing well from a cardiovascular standpoint with improved symptoms. We reviewed the risks of stent thrombosis, heart attack, and/or if not compliant with DAPT. He is aware to call our office for any issue related to DAPT including any request to hold DAPT. He is interested in cardiac rehab but wishes to do so closer to his home in [place] and will look into [facility]. He has known aortic stenosis which is worsened to moderately severe on his most recent echocardiogram however he remains asymptomatic an is not quite severe enough for intervention at this time. His heart rate, blood pressure, and most recent cholesterol profile remain under favorable control. He did note during his office visit today that he has been taking lisinopril 40 mg twice a day which it appears is ordered as so. We will reduce this to daily to avoid risk to kidney function and he will let us know if his blood pressure is above goal with this change at which time we would increase his metoprolol to tartrate to 100 mg twice daily. I have made no additions or changes to his medications. He should continue to actively engage in cardiovascular risk factor modification and follow up with Dr. Barron in 3 months, or sooner should need arise. CONTACT INFORMATION: Nanci Hernandez APRN.ANNIE Cardiology Nurse Practitioner Section of Regional Cardiology [facility] Dept of Cardiovascular Medicine [facility] [place] [address] [place] [address] Office Office This note was partially generated using [employer] voice recognition system and may contain errors related to that system including grammar, punctuation, spelling, and words that may be inappropriate documented in this encounter [facility] 08-03-2022 Miscellaneous Notes Last appointment: 07/03/22 Next appointment: 11/14/22 Pharmacy verified in [employer]. Refill(s) requested: Requested Prescriptions Pending Prescriptions Disp Refills chlorthalidone (HYGROTON) 25 mg tablet [Pharmacy Med Name: CHLORTHALIDONE 25 MG TABLET] 90 tablet 3 Sig: TAKE 1 TABLET BY MOUTH EVERY DAY Order(s) pended. Please advise. Abril Child MA, [facility] documented in this encounter [facility] 07-31-2022 Miscellaneous Notes Received notification that patient's PA for DEXCOM GENERATOR ASSEMBLER has been RESOLVED, NO ADDITIONAL (PA) NEEDED AUTH NUMBER /CASE ID / REFERENCE : NONE GIVEN PA CODE: [id number] Insurance: [id number] Received a notification that patient will need a PA for DEXCOM GENERATOR ASSEMBLER . Patient information submitted for PA : 07/31/22 PA ZAZUETA CODE : [id number] Awaiting for Approval or Denial. Documents sent placed in MA's (Prior Auth folder) file. Insurance: [id number] documented in this encounter [facility] 07-21-2022 Miscellaneous Notes Received voicemail from patient stating there was an issue with the Freestyle Ana 3 prescription. Returned call to patient, said someone he talked with at [facility] indicated Dexcom may be covered and cheaper. Patient requesting script for Dexcom be sent to pharmacy. The following approved medication requests have been transmitted electronically. Requested Prescriptions Signed Prescriptions Disp Refills Blood-Glucose Meter,Continuous (DEXCOM G7 GENERATOR ASSEMBLER) misc 1 Each 0 Sig: Use to check blood sugar at least four (4) times daily. Authorizing Provider: DENIS RIVERO Ordering User: HANY GARCIA Blood-Glucose Sensor (DEXCOM G7 SENSOR) yesenia 9 Each 3 Sig: Apply new sensor every ten (10) days. Authorizing Provider: DENIS RIVERO Ordering User: HANY GARCIA RPh documented in this encounter [facility] 07-11-2022 Miscellaneous Notes Called PT about known aortic stenosis which has worsened but not met criteria as of yet to pursue AVR. Burke Barron, PT states he understands documented in this encounter [facility] 07-07-2022 History of Present illness Narrative Reason for Consultation: DM Type 2 Referring Physician: Denis Rivero [address] [facility] [id number] HISTORY OF PRESENT ILLNESS Mr. Clarke is a 66 year old male presenting here today for a follow up of DM Type 2. As I recall, he was initially diagnosed with diabetes 2006. 12/13/21 A1C today is 7.8 on 07/03/22 History in addition to diabetes include: hypertension, hyperlipidemia, obesity, ED, BPH States he has been doing well till the last 4-5 days. Had avg 148 while in [place]. One episode of balanitis which resolved. He has been working with the pharmacist([facility] 07/03/22) on DM control and ozempic was increased yesterday. He is under the care of pain management, cardiology Bit by a dog while in [place] 5-6 wks ago. Was on ATB but started vomiting and stopped it. He was seen by primary care on 07/03 and they are monitoring. Current diabetes regimen is as follows: ozempic 2 mg weekly jardiance 10 mg daily--reduced from 25 mg daily after episode of balanitis Metformin ER 2 tabs BID Basaglar 44 units daily night Previous DM medication: Glimepiride he is checking his blood glucose continuously using Ana 3 he does bring a log book today for review. LDE Blood Sugar Frequency: BG ranges: 85 to 280 Freestyle ana 14 day download--recent data would not download Hypoglycemia frequency: occasionally Hypoglycemia awareness: Yes Regarding symptoms of hypoglycemia, he is not experiencing any symptoms such as polyuria, polydipsia, nocturia or rapid weight loss or blurry vision, Overall, the patient has no acute complaints at this time. PAST MEDICAL HISTORY Diagnosis Date BPH (benign prostatic hypertrophy) with urinary retention 01/22/2012 Bradycardia ED (erectile dysfunction) Hyperlipidemia LDL goal < 100 01/22/2012 Hypertension 01/22/2012 Obesity Type 2 diabetes mellitus not at goal 01/22/2012 PAST SURGICAL HISTORY Procedure Laterality Date CARDIAC CATHETERIZATION HX 1999, 2004 no blockages, mildly leaky valve PAST SURGICAL HISTORY OF 12/2015 L3-S1 laminectomy, decompression PAST SURGICAL HISTORY OF 01/16/2017 Lumbar reexploration L3-S1 with laminectomy and decompression FAMILY HISTORY Problem Relation Age of Onset Diabetes Mother Heart Father Diabetes Father Social History Tobacco Use Smoking status: Former Types: Cigarettes Quit date: 01/21/2010 Years since quittin.4 Smokeless tobacco: Current Types: Chew Vaping Use Vaping Use: Never used Substance Use Topics Alcohol use: No Drug use: No Allergies As of Date: 07/07/2022 (No Known Allergies) Fully Assessed 07/07/2022 Current Outpatient Medications Medication Sig Dispense Refill Blood-Glucose Sensor (FREESTYLE ANA 3 SENSOR) yesenia Apply sensor to back of arm to check blood sugars as directed. Change sensor every 2 weeks and rotate arms. 6 Each 3 semaglutide (OZEMPIC) 2 mg/dose (8 mg/3 mL) pen injector Inject 2 mg subcutaneously one time a week. 9 mL 3 metFORMIN ER (GLUCOPHAGE XR) 500 mg 24 hr tablet Take 2 tablets by mouth twice daily with meals. 360 tablet 3 insulin glargine (BASAGLAR KWIKPEN U-100 INSULIN) 100 unit/mL (3 mL) Inject 44 Units subcutaneously once daily. 45 mL 3 metoprolol tartrate 75 mg tab Take 1 tablet by mouth twice daily. 180 tablet 3 amLODIPine (NORVASC) 10 mg tablet TAKE 1 TABLET ONCE DAILY 90 tablet 3 BD ULTRAFINE III MINI PEN 31 gauge x 3/16 USE AND DISCARD 1 PEN NEEDLE ONCE DAILY WITH INSULIN PEN 100 Each 3 rosuvastatin (CRESTOR) 10 mg tablet TAKE 1 TABLET ONCE DAILY 90 tablet 3 empagliflozin (JARDIANCE) 10 mg tablet Take 1 tablet by mouth daily with breakfast. 90 tablet 3 blood sugar diagnostic (ACCU-CHEK LATIA PLUS TEST STRP) test strip Use to test blood sugars up to twice daily when CGM reading seems inaccurate. Insulin-dependent diabetes, E11.9 200 Strip 3 lisinopril (ZESTRIL, PRINIVIL) 40 mg tablet TAKE 1 TABLET BY MOUTH TWICE A DAY 180 tablet 3 chlorthalidone (HYGROTON) 25 mg tablet TAKE 1 TABLET BY MOUTH EVERY DAY 90 tablet 3 fenofibrate nanocrystallized (TRICOR) 145 mg tablet TAKE 1 TABLET BY MOUTH EVERY DAY 90 tablet 3 sildenafil (VIAGRA) 100 mg tablet Take 1 tablet by mouth as needed. 30-60 minutes before sexual intercourse. 5 tablet 1 Blood Pressure Monitor 1 Each one time a week. 1 Kit 0 aspirin, enteric coated (ECOTRIN LOW STRENGTH) 81 mg EC tablet Take 1 tablet by mouth once daily. Lancets lancets Use as instructed to test glucose 2 times daily. 200 Each 1 Current Facility-Administered Medications Medication Dose Route Frequency Provider Last Rate Last Admin perflutren lipid microspheres 1.3 mL in NaCl (PF) 0.9% 10 mL injection (DEFINITY) INTRAVENOUS DIRECTED PRN Burke Barron, sodium chloride 0.9 % (flush) 10 mL (BD POSIFLUSH) 10 mL INTRAVENOUS DIRECTED PRN Burke Barron DO perflutren lipid microspheres 1.3 mL in NaCl (PF) 0.9% 10 mL injection (DEFINITY) INTRAVENOUS DIRECTED PRN Burke Barron, sodium chloride 0.9 % (flush) 10 mL (BD POSIFLUSH) 10 mL INTRAVENOUS DIRECTED PRDandre Barron DO REVIEW OF SYSTEMS Review of Systems Respiratory: Negative for difficulty breathing. Cardiovascular: Negative for chest pain. Gastrointestinal: Negative for nausea, vomiting, diarrhea and constipation. PHYSICAL EXAMINATION BP 136/77 Pulse 79 Ht 172.7 cm (5' 8) Wt 92.2 kg (203 lb 3.2 oz) SpO2 98% BMI 30.9 kg/m2 Physical Exam Constitutional: Appearance: Normal appearance. He is obese. Skin: General: Skin is warm and dry. Neurological: Mental Status: He is alert and oriented to person, place, and time. Psychiatric: Mood and Affect: Mood normal. Behavior: Behavior normal. DATA Creatinine Date Value Ref Range Status 07/03/2022 0.66 (L) 0.73 - 1.22 mg/dL Final Hemoglobin A1C (%) Date Value 07/03/2022 7.8 04/05/2020 9.1 Hemoglobin A1C (POCT) (%) Date Value 12/13/2021 7.9 ) No components found for: URINEALBUMIN Cholesterol, Total (mg/dL) Date Value 05/12/2022 107 04/05/2020 146 HDL Cholesterol (mg/dL) Date Value 05/12/2022 29 04/05/2020 31 LDL Cholesterol (mg/dL) Date Value 05/12/2022 41 04/05/2020 53 Triglyceride (mg/dL) Date Value 05/12/2022 187 04/05/2020 310 IMPRESSION: Mr. Clarke is a 66 year old male here for evaluation of DM Type 2 complicated by hypertension, hyperlipidemia, obesity RECOMMENDATIONS: (E11.3293, Z79.4) Type 2 diabetes mellitus with both eyes affected 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, with long-term current use of insulin ([facility]) (primary encounter diagnosis) Comment: Glycemic control is close to goal. Unable to pull the ana report. Appears as if he has 2 accounts that need sync'd. He is not interested in adding additional medication today. Plan: Continue basaglar, ozempic, metformin, jardiance Follow up in 6 months (I10) Essential hypertension Comment/Plan: managed per PCP; pharmacy (E66.9) Obesity, Class I, BMI 30-34.9 Comment: Body mass index is 30.9 kg/m . Plan: Encouraged increase dietary and exercise efforts as able Medical Decision Making: Level: 3 - Low Sunshine Banuelos, MSN, HOME PERFORMANCE LABORER, CARDIOLOGY PHYSICIAN ASSISTANT-C, CDE Endocrinology [facility] Office [facility]/[address] [place] [address] Fax: documented in this encounter [facility] 07-06-2022 Miscellaneous Notes Patient called and LMOM requesting prescription for Freestyle Ana 3 sensors be sent to [facility] mail order pharmacy. He requested a call back only if there was an issue/question. The following approved medication requests have been transmitted electronically. Requested Prescriptions Signed Prescriptions Disp Refills Blood-Glucose Sensor (FREESTYLE ANA 3 SENSOR) yesenia 6 Each 3 Sig: Apply sensor to back of arm to check blood sugars as directed. Change sensor every 2 weeks and rotate arms. Authorizing Provider: DENIS RIVERO Ordering User: HANY GARCIA RPh documented in this encounter [facility] 07-03-2022 History of Present illness Narrative ESTABLISHED PATIENT Erik Clarke is a 66 year old male presenting for Follow Up (Dog bite). HISTORY OF PRESENT ILLNESS 5 weeks ago in [place] was bit by stray dog L ankle Went to urgent care, gave him tdap and a IM antibiotic and augmentin oral The Augmentin made him vomit so he discontinued the augmentin after approx 4 doses He is diabetic Here today to re-evaluate wound It is still sore He thinks it looks better He says it was hot to touch 5 days ago but not any longer Not noticed any drainage, spreading redness or swelling Has been putting bacitracin on it daily and keeping it clean/dry and open to air Has a scab on it currently HISTORIES FAMILY HISTORY Problem Relation Age of Onset Diabetes Mother Heart Father Diabetes Father PAST MEDICAL HISTORY Diagnosis Date BPH (benign prostatic hypertrophy) with urinary retention 01/22/2012 Bradycardia ED (erectile dysfunction) Hyperlipidemia LDL goal < 100 01/22/2012 Hypertension 01/22/2012 Obesity Type 2 diabetes mellitus not at goal 01/22/2012 PAST SURGICAL HISTORY Procedure Laterality Date CARDIAC CATHETERIZATION HX 1999, 2004 no blockages, mildly leaky valve PAST SURGICAL HISTORY OF 12/2015 L3-S1 laminectomy, decompression PAST SURGICAL HISTORY OF 01/16/2017 Lumbar reexploration L3-S1 with laminectomy and decompression Social History Tobacco Use Smoking status: Former Types: Cigarettes Quit date: 01/21/2010 Years since quittin.4 Smokeless tobacco: Current Types: Chew Vaping Use Vaping Use: Never used Substance Use Topics Alcohol use: No Drug use: No Allergies: ALLERGIES No Known Allergies Medications: semaglutide (OZEMPIC) 2 mg/dose (8 mg/3 mL) pen injector^Inject 2 mg subcutaneously one time a week.^Disp: 9 mL^Rfl: 3 metFORMIN ER (GLUCOPHAGE XR) 500 mg 24 hr tablet^Take 2 tablets by mouth twice daily with meals.^Disp: 360 tablet^Rfl: 3 insulin glargine (BASAGLAR KWIKPEN U-100 INSULIN) 100 unit/mL (3 mL)^Inject 44 Units subcutaneously once daily.^Disp: 45 mL^Rfl: 3 insulin glargine (LANTUS SOLOSTAR, BASAGLAR KWIKPEN) 100 unit/mL (3 mL)^Inject 44 Units subcutaneously once daily^Disp: 3 mL^Rfl: 0 metoprolol tartrate 75 mg tab^Take 1 tablet by mouth twice daily.^Disp: 180 tablet^Rfl: 3 amLODIPine (NORVASC) 10 mg tablet^TAKE 1 TABLET ONCE DAILY^Disp: 90 tablet^Rfl: 3 Blood-Glucose Sensor (FREESTYLE ANA 3 SENSOR) yesenia^Apply sensor to back of arm to check blood sugars as directed. Change sensor every 2 weeks and rotate arms.^Disp: 6 Each^Rfl: 3 BD ULTRAFINE III MINI PEN 31 gauge x 16^USE AND DISCARD 1 PEN NEEDLE ONCE DAILY WITH INSULIN PEN^Disp: 100 Each^Rfl: 3 rosuvastatin (CRESTOR) 10 mg tablet^TAKE 1 TABLET ONCE DAILY^Disp: 90 tablet^Rfl: 3 empagliflozin (JARDIANCE) 10 mg tablet^Take 1 tablet by mouth daily with breakfast.^Disp: 90 tablet^Rfl: 3 blood sugar diagnostic (ACCU-CHEK LATIA PLUS TEST STRP) test strip^Use to test blood sugars up to twice daily when CGM reading seems inaccurate. Insulin-dependent diabetes, E11.9^Disp: 200 Strip^Rfl: 3 lisinopril (ZESTRIL, PRINIVIL) 40 mg tablet^TAKE 1 TABLET BY MOUTH TWICE A DAY^Disp: 180 tablet^Rfl: 3 chlorthalidone (HYGROTON) 25 mg tablet^TAKE 1 TABLET BY MOUTH EVERY DAY^Disp: 90 tablet^Rfl: 3 fenofibrate nanocrystallized (TRICOR) 145 mg tablet^TAKE 1 TABLET BY MOUTH EVERY DAY^Disp: 90 tablet^Rfl: 3 flash glucose sensor (FREESTYLE ANA 2 SENSOR) kit^Use one sensor every 14 days, IDDM, E11.9^Disp: 2 Kit^Rfl: 11 sildenafil (VIAGRA) 100 mg tablet^Take 1 tablet by mouth as needed. 30-60 minutes before sexual intercourse.^Disp: 5 tablet^Rfl: 1 flash glucose scanning reader (FREESTYLE ANA 2 READER)^Use to test blood sugar using CGM scanners as directed.^Disp: 1 Each^Rfl: 0 Blood Pressure Monitor^1 Each one time a week.^Disp: 1 Kit^Rfl: 0 aspirin, enteric coated (ECOTRIN LOW STRENGTH) 81 mg EC tablet^Take 1 tablet by mouth once daily.^Disp: ^Rfl: Lancets lancets^Use as instructed to test glucose 2 times daily.^Disp: 200 Each^Rfl: 1 REVIEW OF SYSTEMS See HPI PHYSICAL EXAM BP 121/76 Pulse 84 Temp 36.7 C (98 F) (Temporal) Resp 16 Wt 91.3 kg (201 lb 3.2 oz) SpO2 97% BMI 30.59 kg/m General Appearance: Well appearing, alert, in no acute distress, well-hydrated, well nourished.. Skin: L medial ankle with approx 4cm round healing wound. [place] epithelialized outer wound with small dried scab in center. No purulent drainage, warmth, or surrounding erythema. ASSESSMENT: (W54.0XXA) Dog bite, initial encounter (primary encounter diagnosis) (E11.3293, Z79.4) Type 2 diabetes mellitus with both eyes affected 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, with long-term current use of insulin ([facility]) PLAN: - wound does appear to be healing and without signs of infection - would like close follow up given the diabetes and high risk for poor healing, patient declines and opts to send [employer] message or call in - reviewed in length s/sx that would warrant medical evaluation - for now he can continue the bacitracin, keep it clean and dry and open to air. Advised not to pick or pill at the scab but to let it fall off. Rimma Varela APRN.[facility] BP CONTROLLED (<130/80) Never done SHINGRIX VACCINE(1 of 2) Never done documented in this encounter [facility] 07-03-2022 History of Present illness Narrative Primary Care Pharmacy Visit CC (Reason for Consult): Diabetes Goal: A1c < 7% Collaborating Provider: Dr. Rivero Last Provider Visit: 05/17/22 Erik Clarke is a 66 year old male presenting for follow up visit in person. Patient consents to pharmacy collaborative practice agreement. Patient is presenting today for f/up pharmacotherapy management appointment for diabetes. At last PharmD visit on 03/13, no med changes made. At last PCP appt, no med changes made. At cardiology visit on 06/29, discussed plans for a heart catheterization later in June. Subjective: HPI: Got the tice 3. Doesn't have email. Feels sugars are doing well. Patient has been working on dietary changes over the past couple of months. Received a letter from [facility] [employer] saying they are unable to refill his prescription for Metformin because your doctor told us you should not take this medication. If you have questions, please contact your doctor. Said he got bit by a dog when he was down in [place] several weeks ago. Went to an urgent care, received antibiotic (Augmentin - only took 2-3 days but had a lot of GI issues so stopped) and tetanus shot. Wants to know if he should see someone else. Current DM Medications: Metformin ER 500mg tabs - 1000mg BID Empagliflozin (Jardiance) 10mg daily Semaglutide (Ozempic) 1mg pens - 2mg weekly Insulin glargine (Basaglar) 44 units daily every evening Past DM medications: Glimepiride - changed to insulin Byetta Ehsan - can't remember why he stopped it Jardiance 25mg - balanitis Current HTN Medications: Lisinopril 40mg BID Metoprolol tartrate 75mg BID Amlodipine 10mg daily Chlorthalidone 25mg daily GLYCEMIC CONTROL: CGM Report Summary of Professional CGM Findings (14 days): 1- CGM recording is adequate for interpretation (88% capture rate) 2- Average glucose is 143 mg/dL 3- Hypoglycemia Total frequency of hypoglycemia: 0 events Time below target (<70 mg/dL): 0% Hypoglycemia trends: none 4- Hyperglycemia Time above target (>180 mg/dL): 15% Hyperglycemia trends: post-meals 5- Time in target range (70-180 mg/dL): 85% Preventative Medications: On MARY BETH/ARB: Yes On Statin: Yes ROS: Patient denies CP, SOB, MORGAN, blurred vision, dizziness or lightheadedness Patient denies symptoms of hypoglycemia (sweating, anxiety, palpitations, hunger, and tremor) Patient denies symptoms of hyperglycemia (polyuria, polydipsia, polyphagia) Patient denies potential medication adverse effects DIET/EXERCISE/SOCIAL Hx: Eating more salads, watching what he is eating more Was exercising more when in [place], got home last week MEDICATIONS: Pill bottles are not present Adherence: denies missed doses Pharmacy: [facility]; [facility] in [place] Rx coverage: [facility] Medicare Affordability: no issues Diabetes supplies: Freestyle Ana 3 Organization System: pill box ACTIVE PROBLEM LIST Type 2 Diabetes Mellitus With Both Eyes Affected By Mild Nonproliferative Retinopathy Without Macular Edema, With Long-Term Current Use of Insulin ([facility]) Hypertension Hyperlipidemia Benign Prostatic Hyperplasia With Lower Urinary Tract Symptoms Colon Polyps Erectile Dysfunction Prolapsed Lumbar Disc Other Chronic Pain Chewing Tobacco Nicotine Dependence Without Complication Lumbar Spondylosis Ddd (Degenerative Disc Disease), Lumbar Lumbar Radiculopathy Bradycardia Nicotine use disorder, F17.2 Non-Rheumatic Aortic Stenosis Coronary Artery Disease Involving [place] Coronary Artery of [place] Heart Without Angina Pectoris Rotator Cuff Syndrome of Left Shoulder Obesity, Class I, Bmi 30-34.9 PAST MEDICAL HISTORY Diagnosis Date BPH (benign prostatic hypertrophy) with urinary retention 01/22/2012 Bradycardia ED (erectile dysfunction) Hyperlipidemia LDL goal < 100 01/22/2012 Hypertension 01/22/2012 Obesity Type 2 diabetes mellitus not at goal 01/22/2012 ALLERGIES No Known Allergies Medication List Medication Directions Comments Action/Plan amLODIPine (NORVASC) 10 mg tablet TAKE 1 TABLET ONCE DAILY aspirin, enteric coated (ECOTRIN LOW STRENGTH) 81 mg EC tablet Take 1 tablet by mouth once daily. BD ULTRAFINE III MINI PEN 31 gauge x 3/16 USE AND DISCARD 1 PEN NEEDLE ONCE DAILY WITH INSULIN PEN Blood Pressure Monitor 1 Each one time a week. blood sugar diagnostic (ACCU-CHEK LATIA PLUS TEST STRP) test strip Use to test blood sugars up to twice daily when CGM reading seems inaccurate. Insulin-dependent diabetes, E11.9 Blood-Glucose Sensor (y primeYLE ANA 3 SENSOR) yesenia Apply sensor to back of arm to check blood sugars as directed. Change sensor every 2 weeks and rotate arms. chlorthalidone (HYGROTON) 25 mg tablet TAKE 1 TABLET BY MOUTH EVERY DAY Discontinued: 06/29/2022 9:50 AM empagliflozin (JARDIANCE) 10 mg tablet Take 1 tablet by mouth daily with breakfast. fenofibrate nanocrystallized (TRICOR) 145 mg tablet TAKE 1 TABLET BY MOUTH EVERY DAY flash glucose scanning reader ([employer] ANA 2 READER) Use to test blood sugar using CGM scanners as directed. flash glucose sensor (FREESTYLE ANA 2 SENSOR) kit Use one sensor every 14 days, IDDM, E11.9 insulin glargine (BASAGLAR KWIKPEN U-100 INSULIN) 100 unit/mL (3 mL) Inject 44 Units subcutaneously once daily. insulin glargine (LANTUS SOLOSTAR, BASAGLAR KWIKPEN) 100 unit/mL (3 mL) Inject 44 Units subcutaneously once daily Lancets lancets Use as instructed to test glucose 2 times daily. lisinopril (ZESTRIL, PRINIVIL) 40 mg tablet TAKE 1 TABLET BY MOUTH TWICE A DAY metFORMIN ER (GLUCOPHAGE XR) 500 mg 24 hr tablet TAKE 2 TABLETS 2 TIMES DAILY WITH MEALS metoprolol tartrate 75 mg tab Take 1 tablet by mouth twice daily. rosuvastatin (CRESTOR) 10 mg tablet TAKE 1 TABLET ONCE DAILY semaglutide (OZEMPIC) 1 mg/dose (4 mg/3 mL) pen Inject 2 mg subcutaneously one time a week. Do 2 injections of 1mg at separate injection sites as discussed. sildenafil (VIAGRA) 100 mg tablet Take 1 tablet by mouth as needed. 30-60 minutes before sexual intercourse. Objective: Exam: Last 3 Encounter BP Readings: Date: BP: 06/29/2022 136/74 05/17/2022 135/75 03/13/2022 132/72 Wt: 90.7 kg (200 lb) BMI: 30.41 kg/(m^2) LABS: Reviewed Lab Results Component Value Date HBA1C 7.8 05/12/2022 HBA1C 7.9 12/13/2021 HBA1C 7.8 06/09/2021 HBA1C 7.3 02/02/2021 HBA1C 9.1 04/05/2020 HBA1C 9.0 11/03/2019 HBA1C 8.4 03/14/2019 HBA1C 8.0 08/24/2018 CMP: Glucose 171 03/04/2022 BUN 26 03/04/2022 Creatinine 0.80 03/04/2022 Sodium 139 03/04/2022 Potassium 3.6 03/04/2022 Chloride 101 03/04/2022 CO2 24 03/04/2022 Protein, Total 7.5 03/04/2022 Albumin 4.7 03/04/2022 Calcium 10.3 03/04/2022 Alkaline Phosphatase 42 06/09/2021 Bilirubin, Total 0.6 03/04/2022 AST 19 03/04/2022 ALT 21 03/04/2022 Estimated Creatinine Clearance: 98 mL/min (based on SCr of 0.8 mg/dL). Lab Results Component Value Date CHOL 107 05/12/2022 CHOL 146 04/05/2020 LDL 41 05/12/2022 LDL 53 04/05/2020 HDL 29 05/12/2022 HDL 31 04/05/2020 TG 187 05/12/2022 TG 310 04/05/2020 The ASCVD Risk score (Nishi GARCIA, et al., 2019) failed to calculate for the following reasons: The valid total cholesterol range is 130 to 320 mg/dL Albumin/Creat Ratio (mg/g) Date Value 05/12/2022 <21 PHARMACOTHERAPY ASSESSMENT/PLAN: 1. Type 2 diabetes mellitus without complication, with long-term current use of insulin ([facility]) - ICD9: 250.00, V58.67, ICD10: E11.9, Z79.4 A1c goal < 7%; uncontrolled (last A1c 7.8%); CGM report is at goal with TIR >70%; tolerating meds well; no issues with lows; patient has been exercising more and doing better with dietary changes; using FL3 CGM though doesn't have an email to set up with [employer] account; no med changes, f/up after next A1c; renal fxn and LFTs sufficient for use CONTINUE metformin ER 1000mg BID, Jardiance 10mg daily, Ozempic 2mg weekly, and Basaglar 44 units daily Ordered the Ozempic 2mg pen for more convenience. Advised to contact PharmD if unable to get from pharmacy so the 1mg pens (with instructions to dose 2 injections weekly) can be ordered. Metformin reordered to mail order pharmacy at patient preference HbA1c: due 08/10 Patient has injury on ankle from a dog bite. PharmD informed him I was unable to tell if it was infected or not, strongly encouraged him to schedule f/up with PCP/[facility] later this week for evaluation. Discussed the risk of having wounds of ankles/feet when having diabetes. Patient agreed to get an appt scheduled. Follow-up Patient is scheduled to see PCP team on 11/14. Patient to have f/up with PharmD team on 09/04. Patient verbalized understanding of instructions. Hany Garcia PharmD, BCPS Primary Care Clinical Pharmacist The majority of the pharmacy visit (> 50%) was spent counseling and/or coordinating care for the patient. interaction: face to face time was 30 minutes. documented in this encounter [facility] 07-03-2022 Instructions Hany Garcia RPh - 07/03/2022 9:00 AM EDT Schedule an appointment with a provider this week to look at your ankle. Continue working on dietary changes and increasing exercise to keep your blood sugars at goal. Please get your labwork drawn prior to our next visit in August. Let me know if you have any issues getting Ozempic or metformin. documented in this encounter [facility] 06-29-2022 History of Present illness Narrative Images from the original note were not included. [facility] CARDIOLOGY [facility] OUTPATIENT VISIT DATE June 29, 2022 PRIMARY CARE PHYSICIAN: Denis Rivero [address] [place] [address] HISTORY OF PRESENT ILLNESS: Mr. Clarke is a 66 year old male. The patient returns for follow-up second history of coronary artery disease with mild blockage in 2016 as well as history of hypertension, hyperlipidemia, moderate aortic stenosis and first-degree AV block. More recently has noticed dyspnea occurring with exertion such as digging a ditch and abating with rest. 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 He denies chest scar, orthopnea, paroxysmal nocturnal dyspnea, palpitations, near-syncope or syncope. PLAN AND RECOMMENDATIONS: The patient has dyspnea occurring with exertion abating with rest which appears to be a potential anginal equivalent. We discussed therapeutic options for which he wishes to proceed with left heart catheterization for further evaluation of significant epicardial coronary disease. He will have an echocardiogram performed before to evaluate valvular status with his known moderate . We will follow-up with him in a few weeks time regardless. Dietary and lifestyle modification was reemphasized to facilitate risk factor reduction. Vitals: BP 136/74 Pulse 72 Ht 172.7 cm (5' 8) Wt 90.7 kg (200 lb) SpO2 99% BMI 30.41 kg/m Physical Exam Vitals reviewed. Constitutional: General: He is not in acute distress. Appearance: He is well-developed. He is not diaphoretic. HENT: Head: Normocephalic and atraumatic. Right Ear: External ear normal. Left Ear: External ear normal. Nose: Nose normal. Eyes: General: No scleral icterus. Right eye: No discharge. Left eye: No discharge. Pupils: Pupils are equal, round, and reactive to light. Neck: Thyroid: No thyromegaly. Vascular: No JVD. Cardiovascular: Rate and Rhythm: Normal rate and regular rhythm. Heart sounds: Murmur heard. Crescendo decrescendo systolic murmur is present with a grade of 2/6. No friction rub. No gallop. Pulmonary: Effort: Pulmonary effort is normal. No respiratory distress. Breath sounds: Normal breath sounds. No wheezing or rales. Abdominal: General: Bowel sounds are normal. Palpations: Abdomen is soft. Musculoskeletal: General: Normal range of motion. Cervical back: Neck supple. Skin: General: Skin is warm and dry. Coloration: Skin is not pale. Neurological: Mental Status: He is alert and oriented to person, place, and time. Cranial Nerves: No cranial nerve deficit. Psychiatric: Mood and Affect: Mood is not anxious or depressed. Behavior: Behavior normal. Thought Content: Thought content normal. Judgment: Judgment normal. Review of Systems Constitutional: Negative for activity change, appetite change, fatigue and unexpected weight change. HENT: Negative for ear pain and trouble swallowing. Eyes: Negative for pain and visual disturbance. Respiratory: Negative for chest tightness and shortness of breath. Cardiovascular: Positive for chest pain (fleeting at rest for 5-6 seconds., atypical). Negative for palpitations and leg swelling. Gastrointestinal: Negative for abdominal pain and blood in stool. Endocrine: Negative for cold intolerance and heat intolerance. Genitourinary: Negative for dysuria, hematuria and scrotal swelling. Musculoskeletal: Negative for arthralgias and myalgias. Skin: Negative for pallor and rash. Allergic/Immunologic: Negative for immunocompromised state. Neurological: Negative for dizziness, syncope and light-headedness. Hematological: Negative for adenopathy. Does not bruise/bleed easily. Psychiatric/Behavioral: Negative for sleep disturbance. The patient is not nervous/anxious. PAST MEDICAL HISTORY Diagnosis Date BPH (benign prostatic hypertrophy) with urinary retention 01/22/2012 Bradycardia ED (erectile dysfunction) Hyperlipidemia LDL goal < 100 01/22/2012 Hypertension 01/22/2012 Obesity Type 2 diabetes mellitus not at goal 01/22/2012 PAST SURGICAL HISTORY Procedure Laterality Date CARDIAC CATHETERIZATION HX 1999, 2005 no blockages, mildly leaky valve PAST SURGICAL HISTORY OF 12/2015 L3-S1 laminectomy, decompression PAST SURGICAL HISTORY OF 01/16/2017 Lumbar reexploration L3-S1 with laminectomy and decompression Social History Tobacco Use Smoking status: Former Types: Cigarettes Quit date: 01/21/2010 Years since quittin.4 Smokeless tobacco: Current Types: Chew Vaping Use Vaping Use: Never used Substance Use Topics Alcohol use: No Drug use: No FAMILY HISTORY Problem Relation Age of Onset Diabetes Mother Heart Father Diabetes Father ALLERGIES No Known Allergies CURRENT MEDICATIONS: metFORMIN ER (GLUCOPHAGE XR) 500 mg 24 hr tablet^TAKE 2 TABLETS 2 TIMES DAILY WITH MEALS^Disp: 360 tablet^Rfl: 3 insulin glargine (BASAGLAR KWIKPEN U-100 INSULIN) 100 unit/mL (3 mL)^Inject 44 Units subcutaneously once daily.^Disp: 45 mL^Rfl: 3 insulin glargine (LANTUS SOLOSTAR, BASAGLAR KWIKPEN) 100 unit/mL (3 mL)^Inject 44 Units subcutaneously once daily^Disp: 3 mL^Rfl: 0 metoprolol tartrate 75 mg tab^Take 1 tablet by mouth twice daily.^Disp: 180 tablet^Rfl: 3 amLODIPine (NORVASC) 10 mg tablet^TAKE 1 TABLET ONCE DAILY^Disp: 90 tablet^Rfl: 3 Blood-Glucose Sensor (FREESTYLE ANA 3 SENSOR) yesenia^Apply sensor to back of arm to check blood sugars as directed. Change sensor every 2 weeks and rotate arms.^Disp: 6 Each^Rfl: 3 BD ULTRAFINE III MINI PEN 31 gauge x 07/06^USE AND DISCARD 1 PEN NEEDLE ONCE DAILY WITH INSULIN PEN^Disp: 100 Each^Rfl: 3 rosuvastatin (CRESTOR) 10 mg tablet^TAKE 1 TABLET ONCE DAILY^Disp: 90 tablet^Rfl: 3 semaglutide (OZEMPIC) 1 mg/dose (4 mg/3 mL) pen^Inject 2 mg subcutaneously one time a week. Do 2 injections of 1mg at separate injection sites as discussed.^Disp: 18 mL^Rfl: 3 empagliflozin (JARDIANCE) 10 mg tablet^Take 1 tablet by mouth daily with breakfast.^Disp: 90 tablet^Rfl: 3 blood sugar diagnostic (ACCU-CHEK LATIA PLUS TEST STRP) test strip^Use to test blood sugars up to twice daily when CGM reading seems inaccurate. Insulin-dependent diabetes, E11.9^Disp: 200 Strip^Rfl: 3 lisinopril (ZESTRIL, PRINIVIL) 40 mg tablet^TAKE 1 TABLET BY MOUTH TWICE A DAY^Disp: 180 tablet^Rfl: 3 chlorthalidone (HYGROTON) 25 mg tablet^TAKE 1 TABLET BY MOUTH EVERY DAY^Disp: 90 tablet^Rfl: 3 fenofibrate nanocrystallized (TRICOR) 145 mg tablet^TAKE 1 TABLET BY MOUTH EVERY DAY^Disp: 90 tablet^Rfl: 3 flash glucose sensor (FREESTYLE ANA 2 SENSOR) kit^Use one sensor every 14 days, IDDM, E11.9^Disp: 2 Kit^Rfl: 11 sildenafil (VIAGRA) 100 mg tablet^Take 1 tablet by mouth as needed. 30-60 minutes before sexual intercourse.^Disp: 5 tablet^Rfl: 1 flash glucose scanning reader (Outracks TechnologiesSTYLE ANA 2 READER)^Use to test blood sugar using CGM scanners as directed.^Disp: 1 Each^Rfl: 0 Blood Pressure Monitor^1 Each one time a week.^Disp: 1 Kit^Rfl: 0 aspirin, enteric coated (ECOTRIN LOW STRENGTH) 81 mg EC tablet^Take 1 tablet by mouth once daily.^Disp: ^Rfl: Lancets lancets^Use as instructed to test glucose 2 times daily.^Disp: 200 Each^Rfl: 1 cyanocobalamin (VITAMIN B-12) 500 mcg tablet^Take 1 tablet by mouth once daily.^Disp: ^Rfl: (Patient not taking: Reported on 06/29/2022) EKG performed today demonstrates sinus rhythm at 72 beats minute with first-degree AV block and minimal voltage criteria for LVH and age undetermined septal infarct, similar to previous. Burke Barron, DO, FACC, FACOI Clinical and Preventive Cardiology Department of Medicine and Division of Cardiology, [facility] [employer] can worker [facility] Crusher Setter of [facility] Card[facility] Office Crusher Setter [facility] Staff [employer], [employer] Department of Cardiovascular Medicine/Heart and [facility] [place], [facility] Clinical Top Lift And Automatic Window Repairer Profressor of Medicine, [facility] Please note: This note has been produced using speech recognition software and may contain errors related to that system including yovany, punctuation, spelling, words, gender and phrases that may be inappropriate. documented in this encounter [facility] 05-18-2022 Miscellaneous Notes Received voicemail from patient that he takes Basaglar but Lantus was sent to his [facility] pharmacy. Insulin was picked up and patient was charged $137 when his copay is normally $25. Patient asking for a return call. Returned call to patient. He states he picked up the insulin, didn't realize it wasn't Basaglar. PharmD informed him that fortunately the Lantus and Basaglar can be more or less used interchangeably - use the same dose for each one. He is OK to use up the Lantus and go back to Basaglar as normal. Unfortuantely will not be able to get refunded since the insulin left the pharmacy. As far as smith goes, it is possible that smith is higher since it was filled at a local pharmacy instead of mail order. Patient appreciated the call and plans to use up the Lantus. Agreed to call back with any issues/questions. Hany Garcia PharmD, [facility] Primary Care Clinical Pharmacist documented in this encounter [facility] 05-17-2022 Miscellaneous Notes Sent to [facility]. Thanks, Antoinette Barajas APRN.ROUGHENER Spoke to [facility] pharmacist, they need a new order. Order pended. Please contact [facility] to clarify which Rx they have for basaglar. It should be 44 units daily at bedtime. I can send new script if needed. Thanks, Antoinette Barajas APRN.ROUGHENER Notified patient. Yes, he states he is taking 44 units of basaglar daily. Lelo Morse RN Reason for Disposition [1] Caller has NON-URGENT medicine question about med that PCP prescribed AND [2] triager unable to answer question Protocols used: Medication Question [id number] Metformin sent to [facility]. Per Hany's last note, patient was to continue on 44 units of basaglar daily. Is this what he has been doing? Thanks, Antoinette Barajas APRN.ROUGHENER Erik is calling to follow up from his appointment this morning and the medication issues. Patient is leaving for [place] on Sunday and is asking this be handled as soon as possible. His metformin which was sent to the [facility] Order pharmacy needs to be at the [facility] in [place]. He spoke to the Mail Order pharmacy regarding his insulin and states they told him it's written for 32 units. His bottle states 34 units. Our script reads 44 units. He will be out when he goes to [place] based on the confusion about the units he should be taking. Please review and have a new script sent to the [facility] in [place]. Advised patient to check with his pharmacy late this afternoon or tomorrow morning. Please contact him with any questions [phone] documented in this encounter [facility] 05-17-2022 Instructions Denis Rivero MD - 05/17/2022 7:59 AM EST Continue the current medications Keep follow up with rukhsana and with Hany Follow up here in 6 months for annual physical exam documented in this encounter [facility] 05-17-2022 History of Present illness Narrative BP CONTROLLED (<130/80) Never done SHINGRIX VACCINE(1 of 2) Never done ADVANCE DIRECTIVE DISCUSSION due on 04/23/2022 DEPRESSION ASSESSMENT Never done Erik Clarke is a 66 year old male presenting for follow-up DM: Has been following with Hany/Pharm.D. Blood sugars are ranging in the 110 2 hours PP Will be in the 120 in the morning usually It is 149 now, he had coffee and cream though Patient has been doing the metformin, Jardiance, Lantus and Ozempic Does try to watch his diet He had the flu for about 2 weeks His blood sugars were going high this time Was running in the 220 CAD/HTN/HLD: Does follow with cardiology Reports no chest pain or palpitations Blood pressures been under reasonable control Tolerating medications He has not been getting the SOB as much Was more when he was really active with work Degenerative disc disease/back pain He is still active Does not prevent him from doing anything HISTORIES: PAST MEDICAL HISTORY Diagnosis Date BPH (benign prostatic hypertrophy) with urinary retention 01/22/2012 Bradycardia ED (erectile dysfunction) Hyperlipidemia LDL goal < 100 01/22/2012 Hypertension 01/22/2012 Obesity Type 2 diabetes mellitus not at goal 01/22/2012 PAST SURGICAL HISTORY Procedure Laterality Date CARDIAC CATHETERIZATION HX 1999, 2004 no blockages, mildly leaky valve PAST SURGICAL HISTORY OF 12/2015 L3-S1 laminectomy, decompression PAST SURGICAL HISTORY OF 01/16/2017 Lumbar reexploration L3-S1 with laminectomy and decompression FAMILY HISTORY Problem Relation Age of Onset Diabetes Mother Heart Father Diabetes Father Social History: Social History Tobacco Use Smoking status: Former Types: Cigarettes Quit date: 01/21/2010 Years since quittin.3 Smokeless tobacco: Current Types: Chew Vaping Use Vaping Use: Never used Substance Use Topics Alcohol use: No Drug use: No Allergies: ALLERGIES No Known Allergies Medications: metoprolol tartrate 75 mg tab^Take 1 tablet by mouth twice daily.^Disp: 180 tablet^Rfl: 3 metFORMIN ER (GLUCOPHAGE XR) 500 mg 24 hr tablet^TAKE 2 TABLETS 2 TIMES DAILY WITH MEALS^Disp: 360 tablet^Rfl: 3 amLODIPine (NORVASC) 10 mg tablet^TAKE 1 TABLET ONCE DAILY^Disp: 90 tablet^Rfl: 3 Blood-Glucose Sensor (FREESTYLE ANA 3 SENSOR) yesenia^Apply sensor to back of arm to check blood sugars as directed. Change sensor every 2 weeks and rotate arms.^Disp: 6 Each^Rfl: 3 cyanocobalamin (VITAMIN B-12) 500 mcg tablet^Take 1 tablet by mouth once daily.^Disp: ^Rfl: BD ULTRAFINE III MINI PEN 31 gauge x 07/06^USE AND DISCARD 1 PEN NEEDLE ONCE DAILY WITH INSULIN PEN^Disp: 100 Each^Rfl: 3 rosuvastatin (CRESTOR) 10 mg tablet^TAKE 1 TABLET ONCE DAILY^Disp: 90 tablet^Rfl: 3 semaglutide (OZEMPIC) 1 mg/dose (4 mg/3 mL) pen^Inject 2 mg subcutaneously one time a week. Do 2 injections of 1mg at separate injection sites as discussed.^Disp: 18 mL^Rfl: 3 empagliflozin (JARDIANCE) 10 mg tablet^Take 1 tablet by mouth daily with breakfast.^Disp: 90 tablet^Rfl: 3 insulin glargine (LANTUS SOLOSTAR, BASAGLAR KWIKPEN) 100 unit/mL (3 mL)^Inject 44 Units subcutaneously daily at bedtime.^Disp: 14 Pen^Rfl: 3 blood sugar diagnostic (ACCU-CHEK LATIA PLUS TEST STRP) test strip^Use to test blood sugars up to twice daily when CGM reading seems inaccurate. Insulin-dependent diabetes, E11.9^Disp: 200 Strip^Rfl: 3 lisinopril (ZESTRIL, PRINIVIL) 40 mg tablet^TAKE 1 TABLET BY MOUTH TWICE A DAY^Disp: 180 tablet^Rfl: 3 chlorthalidone (HYGROTON) 25 mg tablet^TAKE 1 TABLET BY MOUTH EVERY DAY^Disp: 90 tablet^Rfl: 3 fenofibrate nanocrystallized (TRICOR) 145 mg tablet^TAKE 1 TABLET BY MOUTH EVERY DAY^Disp: 90 tablet^Rfl: 3 flash glucose sensor (FREESTYLE ANA 2 SENSOR) kit^Use one sensor every 14 days, IDDM, E11.9^Disp: 2 Kit^Rfl: 11 sildenafil (VIAGRA) 100 mg tablet^Take 1 tablet by mouth as needed. 30-60 minutes before sexual intercourse.^Disp: 5 tablet^Rfl: 1 flash glucose scanning reader (Outracks TechnologiesSTYLE ANA 2 READER)^Use to test blood sugar using CGM scanners as directed.^Disp: 1 Each^Rfl: 0 Blood Pressure Monitor^1 Each one time a week.^Disp: 1 Kit^Rfl: 0 aspirin, enteric coated (ECOTRIN LOW STRENGTH) 81 mg EC tablet^Take 1 tablet by mouth once daily.^Disp: ^Rfl: Lancets lancets^Use as instructed to test glucose 2 times daily.^Disp: 200 Each^Rfl: 1 REVIEW OF SYSTEMS See HPI PHYSICAL EXAMINATION: BP 135/75 Pulse 78 Temp 36.6 C (97.9 F) (Temporal) Resp 16 Wt 95 kg (209 lb 8 oz) SpO2 97% BMI 31.85 kg/m General Appearance: Well appearing, alert, in no acute distress, well-hydrated, well nourished.. Neck: Supple, no adenopathy; thyroid symmetric, normal size, no bruits. Lungs: Lungs clear to auscultation. No wheezing, rhonchi, rales.. Heart: RRR without murmur, gallop, or rubs. No ectopy. Extremities: No deformities, edema, skin discoloration, clubbing or cyanosis. Good capillary refill. . Peripheral Pulses: Normal ASSESSMENT/PLAN: 1. Type 2 diabetes mellitus with both eyes affected 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, with long-term current use of insulin ([facility]) - ICD9: 250.50, 362.04, V58.67, ICD10: E11.3293, Z79.4 (primary diagnosis) Hemoglobin A1c is still elevated at 7.8% although slightly improved from previous Had noted some very high blood sugars when he was ill a couple of weeks ago Has noted that his blood sugars are ranging on the 120-150 range Has been doing his medications including the metformin, Ozempic, Lantus, and Jardiance Has follow-up upcoming with pharmacy as well as endocrinology No adjustments were made in medications today We will continue monitoring Still not at goal but wondering with his blood sugars being in elevated from a couple weeks when he was ill playing a factor Hemoglobin A1C (%) Date Value 05/12/2022 7.8 06/09/2021 7.8 02/02/2021 7.3 10/11/2020 7.1 07/09/2020 8.0 04/05/2020 9.1 03/14/2019 8.4 08/24/2018 8.0 02/25/2018 8.7 08/24/2017 8.4 Hemoglobin A1C (POCT) (%) Date Value 12/13/2021 7.9 11/03/2019 9.0 2. Coronary artery disease involving [place] coronary artery of [place] heart without angina pectoris - ICD9: 414.01, ICD10: I25.10 3. Primary hypertension - ICD9: 401.9, ICD10: I10 4. Mixed hyperlipidemia - ICD9: 272.2, ICD10: E78.2 Continue following with cardiology Patient reports no chest pain or palpitations Tolerating medications Blood pressures under good control Lipids are under good control reviewed today Cholesterol, Total Date Value Ref Range Status 05/12/2022 107 <200 mg/dL Final Comment: <200 mg/dL, Desirable 200-239 mg/dL, Borderline high >239 mg/dL, High HDL Cholesterol Date Value Ref Range Status 05/12/2022 29 (L) >39 mg/dL Final Comment: 40-59 mg/dL, Acceptable >59 mg/dL, High: Negative risk factor for coronary heart disease <40 mg/dL, Low: Positive risk factor for coronary heart disease LDL Cholesterol Date Value Ref Range Status 05/12/2022 41 <100 mg/dL Final Comment: <100 mg/dL, Optimal 100-129 mg/dL, Near optimal/above optimal 130-159 mg/dL, Borderline high 160-189 mg/dL, High >189 mg/dL, Very high Secondary prevention optimal LDL Cholesterol levels are recommended to be < 70 mg/dL Triglyceride Date Value Ref Range Status 05/12/2022 187 (H) <150 mg/dL Final Comment: <150 mg/dL, Normal 150-199 mg/dL, Borderline high 200-499 mg/dL, High >499 mg/dL, Very high 5. DDD (degenerative disc disease), lumbar - ICD9: 722.52, ICD10: M51.36 6. Lumbar spondylosis - ICD9: 721.3, ICD10: M47.816 Patient reports his back is doing okay Has not really needed to take anything Had seen pain management in the past and had gotten injections May need to go back at some point Not bothering him too much at this time 7. Obesity, Class I, BMI 30-34.9 - ICD9: 278.00, ICD10: E66.9 Counseled on importance of working on diet exercise and weight loss Denis Rivero MD . Denis Rivero MD Component Latest Ref Rng & Units 11/03/2019 04/05/2020 04/21/2020 07/09/2020 08/13/2020 10/11/2020 02/02/2021 06/08/2021 06/09/2021 11/30/2021 12/13/2021 03/04/2022 05/12/2022 WBC 3.70 - 11.00 k/uL 7.76 9.62 6.59 RBC 4.20 - 6.00 m/uL 5.69 4.91 5.03 Hemoglobin 13.0 - 17.0 g/dL 16.9 14.7 15.0 Hematocrit 39.0 - 51.0 % 53.0 (H) 42.8 44.3 MCV 80.0 - 100.0 fL 93.1 87.2 88.1 MCH 26.0 - 34.0 pg 29.7 29.9 29.8 MCHC 30.5 - 36.0 g/dL 31.9 34.3 33.9 RDW-CV 11.5 - 15.0 % 12.4 12.6 12.3 Platelet Count 150 - 400 k/uL 346 288 376 MPV 9.0 - 12.7 fL 9.9 9.0 9.5 Neut% % 58.6 Abs Neut (ANC) 1.45 - 7.50 k/uL 4.54 Lymph% % 27.7 Abs Lymph 1.00 - 4.00 k/uL 2.15 [place]% % 7.9 Abs [place] <0.87 k/uL 0.61 Eosin% % 5.0 Abs Eosin <0.46 k/uL 0.39 Baso% % 0.8 Abs Baso <0.11 k/uL 0.06 Nucleated Reds 0 /100 WBC 0.0 Absolute nRBC <0.01 k/uL <0.01 Diff Type Auto Diff Protein, Total 6.3 - 8.0 g/dL 7.6 7.6 7.5 Albumin 3.9 - 4.9 g/dL 4.9 4.7 4.7 Calcium 8.5 - 10.2 mg/dL 10.3 (H) 9.9 9.9 10.1 10.3 (H) Bilirubin, Total 0.2 - 1.3 mg/dL 0.5 0.8 0.6 Alkaline Phosphatase 38 - 113 U/L 46 42 44 AST 14 - 40 U/L 12 (L) 14 19 Glucose 74 - 99 mg/dL 171 (H) 119 (H) 147 (H) 131 (H) 171 (H) BUN 9 - 24 mg/dL 18 23 19 21 26 (H) Creatinine 0.73 - 1.22 mg/dL 0.71 (L) 0.74 0.77 0.73 0.80 Sodium 136 - 144 mmol/L 139 136 138 140 139 Potassium 3.7 - 5.1 mmol/L 3.8 3.4 (L) 3.5 (L) 3.6 (L) 3.6 (L) Chloride 97 - 105 mmol/L 101 99 100 102 101 CO2 22 - 30 mmol/L 22 24 24 26 24 Anion Gap 9 - 18 mmol/L 16 13 14 12 14 ALT 10 - 54 U/L 20 18 21 eGFR- >60 >60 >60 eGFR-All Other Races >60 >60 >60 eGFR >=60 mL/min/1.73m 100 97 Cholesterol, Total <200 mg/dL 146 92 107 Triglyceride <150 mg/dL 310 (H) 107 187 (H) HDL Cholesterol >39 mg/dL 31 (L) 33 (L) 29 (L) LDL Cholesterol <100 mg/dL 53 38 41 Non HDL Cholesterol <130 mg/dL 115 59 78 Fasting Time hrs Unknown 12 12 VLDL Cholesterol <30 mg/dL 62 (H) 21 37 (H) TC:HDL Ratio <5.10 4.71 2.79 3.69 LDL:HDL Ratio <2.54 1.71 1.15 1.41 Creatinine, Ur Random (UCRR) 46.8 - 314.5 mg/dL 74.5 47.2 55.9 Albumin, Urine Random mg/L 23.5 <12.0 <12.0 Albumin/Creat Ratio <30 mg/g 32 (H) <25 <21 Iron TIBC Transferrin Saturation Hemoglobin A1C 4.3 - 5.6 % 9.1 (H) 8.0 (H) 7.1 (H) 7.3 (H) 7.8 (H) 7.8 (H) Estimated Average Glucose mg/dL 214 183 157 163 177 177 Hemoglobin A1C (POCT) 4.2 - 5.6 % 9.0 (A) 7.9 (A) PSA 0.00 - 3.90 ng/mL 3.88 Occult Blood, Stool Negative Negative Vitamin D 25 Hydroxy >=30.0 ng/mL 34.3 Vitamin B12 232 - 1,245 pg/mL 290 Ferritin 30.3 - 565.7 ng/mL 185.2 Free T4 0.9 - 1.7 ng/dL 1.2 TSH 0.270 - 4.200 mIU/L 1.370 documented in this encounter [facility] 05-05-2022 Miscellaneous Notes Last appointment: 11/14/21 Next appointment: 05/17/22 Pharmacy verified in [employer]. Refill(s) requested: Requested Prescriptions Pending Prescriptions Disp Refills metFORMIN ER (GLUCOPHAGE XR) 500 mg 24 hr tablet 360 tablet 3 Order(s) pended. Please advise. Karishma Walsh LPN, CMA Patient said he has an appt with Dr. Rivero on 05/17/22. He is leaving for several weeks the next day, so he will need his mail order for this rx sent no. Otherwise, he will run out while he is out of town. He would like a call at [phone] when sent. Patient has been identified by name and date of : Yes Requested Prescriptions Pending Prescriptions Disp Refills metFORMIN ER (GLUCOPHAGE XR) 500 mg 24 hr tablet 360 tablet 3 RX INSTRUCTIONS: Patient requesting a call when RX is approved and sent to the pharmacy. Please call patient at: [phone] Earnestine Camarena Pss documented in this encounter [facility] 05-05-2022 Miscellaneous Notes Last appointment: 11-14-21 Next appointment: 05-17-22 Pharmacy verified in [employer]. Refill(s) requested: Requested Prescriptions Pending Prescriptions Disp Refills metoprolol tartrate 75 mg tab 180 tablet 3 Sig: Take 1 tablet by mouth twice daily. Order(s) pended. Please advise. Moira Okeefe MA, PIN WORKER documented in this encounter [facility] 04-07-2022 Miscellaneous Notes Patient requesting refills as follow: Last prescribed : 04/25/21 Last OV: 11/14/21 Next OV: 05/17/22 Requested Prescriptions Pending Prescriptions Disp Refills amLODIPine (NORVASC) 10 mg tablet [Pharmacy Med Name: AMLODIPINE TAB 10MG] 90 tablet 3 Sig: TAKE 1 TABLET ONCE DAILY Please review and advise. Perla Nuñez Ma documented in this encounter [facility] 03-13-2022 History of Present illness Narrative Images from the original note were not included. Primary Care Pharmacy Visit CC (Reason for Consult): Diabetes Goal: A1c < 7% Collaborating Provider: Dr. Rivero Last Provider Visit: 11/14/21 Erik Clarke is a 66 year old male presenting for follow up visit in person. Patient consents to pharmacy collaborative practice agreement. Patient is presenting today for follow up pharmacotherapy management appointment for diabetes. At last PCP appt, no medication changes were made. At last PharmD visit on 12/12/21, ozempic was increased to 2mg and metformin ER 1g BID, jardiance 10mg daily and basaglar 44 units daily were continued. Endocrine appt on 12/13/21, no medication changed were made. Subjective: HPI: Patient does not have any specific questions or concerns. Reports on Sunday 03/11 freestyle ana alerted sugars were low around 65. Unable to verify with finger stick due to his meter being . Patient identified sensor was due to be replaced on Sunday so he changed it on Sunday instead. After changing his sensor he did not have any more alerts for low glucose. On Sunday he skipped insulin dose due to hypoglycemia alerts. Denied feeling hypoglycemic during this event. Corrected with a snack. States snacking every night around midnight due to being afraid of low glucose overnight. States he unsure if he would wake up if it went low overnight. Reports grabbing anything he can get to snack on. Last night he had peanut butter sandwich. Denies any side effects to medications. Patient is interested in getting the freestyle ana 3. Denies checking his blood pressure at home. Current DM Medications: Metformin ER 500mg tabs - 1000mg BID Empagliflozin (Jardiance) 10mg daily Semaglutide (Ozempic) 1mg pen, 2mg weekly Insulin glargine (Basaglar) 44 units daily every evening - using 44u nightly, except on 03/11 he did not use any Past DM medications: Glimepiride - changed to insulin Byetta Byvijayon - can't remember why he stopped it Jardiance 25mg - balanitis Current HTN Medications: Lisinopril 40mg BID Metoprolol tartrate 75mg BID Amlodipine 10mg daily Chlorthalidone 25mg daily GLYCEMIC CONTROL: Glucometer present at visit: Yes Hypoglycemia: occurred mainly on 03/11 and potentially an issue with sensor. Denied feeling hypoglycemic during event. Issue resolved once sensor was changed. Unable to confirm with finger stick. How corrected: had a snack Preventative Medications: On MARY BETH/ARB: Yes On Statin: Yes ROS: Patient denies CP, SOB, MORGAN, blurred vision, dizziness or lightheadedness Patient denies symptoms of hypoglycemia (sweating, anxiety, palpitations, hunger, and tremor) Patient denies symptoms of hyperglycemia (polyuria, polydipsia, polyphagia) Patient denies potential medication adverse effects MEDICATIONS: Pill bottles are not present Adherence: denies missed doses within the last week Rx coverage: going on medicare on the of the year, but keeping current insurance as a secondary Organization System: [employer] ACTIVE PROBLEM LIST Type 2 Diabetes Mellitus With Both Eyes Affected By Mild Nonproliferative Retinopathy Without Macular Edema, With Long-Term Current Use of Insulin (Hcc) Hypertension Hyperlipidemia Benign Prostatic Hyperplasia With Lower Urinary Tract Symptoms Colon Polyps Erectile Dysfunction Prolapsed Lumbar Disc Other Chronic Pain Chewing Tobacco Nicotine Dependence Without Complication Lumbar Spondylosis Ddd (Degenerative Disc Disease), Lumbar Lumbar Radiculopathy Bradycardia Nicotine use disorder, F17.2 Non-Rheumatic Aortic Stenosis Coronary Artery Disease Involving Ak Chin Coronary Artery of Ak Chin Heart Without Angina Pectoris Rotator Cuff Syndrome of Left Shoulder Class 1 Obesity With Serious Comorbidity and Body Mass Index (Bmi) of 31.0 to 31.9 in Adult PAST MEDICAL HISTORY Diagnosis Date BPH (benign prostatic hypertrophy) with urinary retention 01/22/2012 Bradycardia ED (erectile dysfunction) Hyperlipidemia LDL goal < 100 01/22/2012 Hypertension 01/22/2012 Obesity Type 2 diabetes mellitus not at goal 01/22/2012 ALLERGIES No Known Allergies Medication List Medication Directions Comments Action/Plan amLODIPine (NORVASC) 10 mg tablet Take 1 tablet by mouth once daily. aspirin, enteric coated (ECOTRIN LOW STRENGTH) 81 mg EC tablet Take 1 tablet by mouth once daily. BD ULTRAFINE III MINI PEN 31 gauge x 3/16 USE AND DISCARD 1 PEN NEEDLE ONCE DAILY WITH INSULIN PEN Blood Pressure Monitor 1 Each one time a week. blood sugar diagnostic (ACCU-CHEK LATIA PLUS TEST STRP) test strip Use to test blood sugars up to twice daily when CGM reading seems inaccurate. Insulin-dependent diabetes, E11.9 chlorthalidone (HYGROTON) 25 mg tablet TAKE 1 TABLET BY MOUTH EVERY DAY cyanocobalamin (VITAMIN B-12) 500 mcg tablet Take 1 tablet by mouth once daily. empagliflozin (JARDIANCE) 10 mg tablet Take 1 tablet by mouth daily with breakfast. Taking daily fenofibrate nanocrystallized (TRICOR) 145 mg tablet TAKE 1 TABLET BY MOUTH EVERY DAY flash glucose scanning reader (FREESTYLE ANA 2 READER) Use to test blood sugar using CGM scanners as directed. flash glucose sensor (FREESTYLE ANA 2 SENSOR) kit Use one sensor every 14 days, IDDM, E11.9 insulin glargine (LANTUS SOLOSTAR, BASAGLAR KWIKPEN) 100 unit/mL (3 mL) Inject 44 Units subcutaneously daily at bedtime. Using 44 units Lancets lancets Use as instructed to test glucose 2 times daily. lisinopril (ZESTRIL, PRINIVIL) 40 mg tablet TAKE 1 TABLET BY MOUTH TWICE A DAY metFORMIN ER (GLUCOPHAGE XR) 500 mg 24 hr tablet TAKE 2 TABLETS 2 TIMES DAILY WITH MEALS Taking 2 tablets BID metoprolol tartrate, short acting, 75 mg tab Take 1 tablet by mouth twice daily. rosuvastatin (CRESTOR) 10 mg tablet TAKE 1 TABLET ONCE DAILY semaglutide (OZEMPIC) 1 mg/dose (4 mg/3 mL) pen Inject 2 mg subcutaneously one time a week. Do 2 injections of 1mg at separate injection sites as discussed. 2 injections of 1mg in different locations sildenafil (VIAGRA) 100 mg tablet Take 1 tablet by mouth as needed. 30-60 minutes before sexual intercourse. Objective: Exam: VITALS: 03/13/2292503/13/22934 BP: 144/86 132/72 Pulse: 83 80 Last 3 Encounter BP Readings: Date: BP: 02/28/2022 132/70 01/16/2022 122/62 12/16/2021 106/70 Wt: 92.1 kg (203 lb) BMI: 30.87 kg/(m^2) LABS: Reviewed Lab Results Component Value Date HBA1C 7.9 12/13/2021 HBA1C 7.8 06/09/2021 HBA1C 7.3 02/02/2021 HBA1C 7.1 10/11/2020 HBA1C 9.1 04/05/2020 HBA1C 9.0 11/03/2019 HBA1C 8.4 03/14/2019 HBA1C 8.0 08/24/2018 CMP: Glucose 171 03/04/2022 BUN 26 03/04/2022 Creatinine 0.80 03/04/2022 Sodium 139 03/04/2022 Potassium 3.6 03/04/2022 Chloride 101 03/04/2022 CO2 24 03/04/2022 Protein, Total 7.5 03/04/2022 Albumin 4.7 03/04/2022 Calcium 10.3 03/04/2022 Alkaline Phosphatase 42 06/09/2021 Bilirubin, Total 0.6 03/04/2022 AST 19 03/04/2022 ALT 21 03/04/2022 GFR: 97 (03/04/22) Estimated Creatinine Clearance: 98.7 mL/min (based on SCr of 0.8 mg/dL). Lab Results Component Value Date CHOL 92 06/09/2021 CHOL 146 04/05/2020 LDL 38 06/09/2021 LDL 53 04/05/2020 HDL 33 06/09/2021 HDL 31 04/05/2020 TG 107 06/09/2021 TG 310 04/05/2020 The ASCVD Risk score (Nishi GARCIA, et al., 2019) failed to calculate for the following reasons: The valid total cholesterol range is 130 to 320 mg/dL Albumin/Creat Ratio (mg/g) Date Value 06/09/2021 <25 PHARMACOTHERAPY ASSESSMENT/PLAN: 1. Type 2 diabetes mellitus without complication, with long-term current use of insulin ([facility]) - ICD9: 250.00, V58.67, ICD10: E11.9, Z79.4 (primary diagnosis) A1c goal < 7%; uncontrolled (last A1c 7.9%); SMBG are within goal range 74% of the time on current regimen, reveals high sugars in the AM because overnight snacking for fear of hypoglycemia; educated on selecting appropriate snacks and advised to try to limit snacks; instructed patient to call if he experiences lows; denies s/sx hypoglycemia; denies s/sx hyperglycemia; will continue currently therapy and await next A1c; denies any side effects of his medications; renal and hepatic function are appropriate for current therapy; will order PictureMenu 3 and confirmed ability to get audrey on phone; patient requested 3 month supply of medication prior to insurance change with the new year, will send in 90 day supply. Continue metformin ER 500mg tabs - 1000mg BID, empagliflozin (Jardiance) 10mg daily, semaglutide (Ozempic) 2mg weekly, and insulin glargine (Basaglar) 44 units daily every evening ACEi/ARB for renal protection: yes Statin: yes HbA1c: due 03/15/22 2. 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 Continue amlodipine 10mg daily, lisinopril 40mg daily, chlorthalidone 25mg daily and metoprolol 75mg BID Recommend home blood pressure monitoring, to bring results in on next visit Follow-up Patient is scheduled to see PCP team on 05/17/22. Patient to have f/up with PharmD team on 05/22/22 @9am. Patient verbalized understanding of instructions. Dalia Simons RPh, PharmD PGY1 Multimedia Journalist The majority of the pharmacy visit (> 50%) was spent counseling and/or coordinating care for the patient. interaction: face to face time was 35 minutes. The patient's case was discussed with the registered pharmacy technician who interviewed the patient. Zazueta elements of history confirmed during office visit. The progress note reflects my input and comments. Reviewed meds - all meds are ordered as 3 mo supply already. Encouraged to request refills before the end of the year, he expressed understanding. Hany Garcia PharmD, [facility] Primary Care Clinical Pharmacist documented in this encounter [facility] 03-13-2022 Instructions Dalia Simons RPh - 03/13/2022 9:00 AM EST Images from the original note were not included. Home Blood Pressure Monitoring: - Don't smoke, drink caffeinated beverages, or exercise for 30 minutes prior to checking your BP. Empty your bladder and allow for a minimum of 5 minutes of quiet rest. - Sit correctly with your feet flat on the floor and your back straight and supported. Rest your arm on a flat surface (ie a table) with your upper arm at heart level. Make sure your cuff is placed directly above the bend of your elbow. - Measure your blood pressure at the same time every day (morning, evening, before meds, after meds, etc). - Take multiple readings. Check your blood pressure 2-3 times in a row, waiting 1 minute between checks. Then calculate the average of your BP readings and record that result. - Don't take your measurement overtop of your clothing. - In general, arm cuffs are more accurate than wrist cuffs. documented in this encounter [facility] 03-06-2022 Miscellaneous Notes Left VM to notify. ----- Message from Nanci Hernandez APRN.ROUGHENER sent at 03/06/2022 2:20 PM EST ----- Please let the patient know his TSH was normal. Thyroid is likely not contributing to his fatigue. Nanci Hernandez APRN.ROUGHENER Labs reviewed. He has normal thyroid function. CBC did not show anemia. Iron stores (ferritin) are normal. The iron and TIBC did not run due to an issue with the sample being hemolysed. We will not repeat at this time given the other labs ok. Vitamin D normal. B12 low normal. Add B12 500mcg daily. Available OTC. Calcium a bit high but no significantly. Potassium low 3.6. THis could be from chlorthalidone use. Increase potassium in the diet and repeat in 7-10 days. Testosterone is overall normal. Total testosterone is low normal but free testosterone looks good. Likely due to increased weight. I do not recommend supplement at this time. Thank you documented in this encounter [facility] 02-08-2022 Miscellaneous Notes Called PT about His monitor did not show any significant arrhythmias. His average heart rate was 84. He had one run of fast heart rate that only lasted 4 beats and was asymptomatic. The symptoms he submitted were during normal sinus rhythm. I reviewed his symptoms and monitor results with Dr. Arian floyd at this time we would like for him to increase his metoprolol to 75 mg twice a day. I have sent 75 mg tablets to his pharmacy. He can take 1.5 of the 50 mg tablets that he currently has until they run out. We will follow up at his appointment in February to see if he notes any improvement in symptoms with this change. Nanci Hernandez APRN.CNP PT states he understands Please call the patient: His monitor did not show any significant arrhythmias. His average heart rate was 84. He had one run of fast heart rate that only lasted 4 beats and was asymptomatic. The symptoms he submitted were during normal sinus rhythm. I reviewed his symptoms and monitor results with Dr. Arian floyd at this time we would like for him to increase his metoprolol to 75 mg twice a day. I have sent 75 mg tablets to his pharmacy. He can take 1.5 of the 50 mg tablets that he currently has until they run out. We will follow up at his appointment in February to see if he notes any improvement in symptoms with this change. Nanci Hernandez APRN.ANNIE documented in this encounter [facility] 01-16-2022 Miscellaneous Notes Pharmacy verified in [facility] Patient has been identified by name and date of : Yes Patient aware RX will be sent to pharmacy. No need to notify patient. Patient phones for refill(s): Requested Prescriptions Pending Prescriptions Disp Refills BD ULTRAFINE III MINI PEN 31 gauge x 3/16 [Pharmacy Med Name: BD MINI NDL PEN [id number]] 3 Sig: USE AND DISCARD 1 PEN NEEDLE ONCE DAILY WITH INSULIN PEN Date of last office visit : 11/14/2021 Date of next office visit : 05/17/2022 Last 2 Encounter Wt Readings: Date: Wt: 01/16/2022 92.7 kg (204 lb 4.8 oz) 12/16/2021 91.2 kg (201 lb) Diabetes: Hemoglobin A1C (%) Date Value 04/05/2020 9.1 Hemoglobin A1C (POCT) (%) Date Value 12/13/2021 7.9 Please advise. Trang Galarza LPN documented in this encounter [facility] 01-04-2022 Miscellaneous Notes Diabetic eye exam done 12/30/2021 Mild nonproliferative diabetic retinopathy bilaterally Follow-up in 1 year Received patient's EYE EXAM (dos: 12/30/21) from [facility] placed in provider's in box to be for reviewed & signed with providers approval to be sent to scanning. Perla Don) documented in this encounter [facility] 01-02-2022 History of Present illness Narrative RADIOLOGY SERVICE PROGRESS NOTE SERVICE DATE: 01/02/2022 SERVICE TIME: 8:33 AM PATIENT IDENTITY VERIFICATION COMPLETED USING TWO (2) STANDARD IDENTIFIERS: Name and Date of confirmed by patient verbally and Name and Date of confirmed by identification band FALL SCREENING: Has the patient had 2 falls in the last year or 1 fall with injury or currently using an Ambulatory Assistive Device (Walker, Cane, Wheelchair, Crutches, etc.)? No PATIENT GENDER DATA: .male ALLERGIES: Reviewed and unchanged MEDICATIONS REVIEWED: Not applicable PATIENT RELEVANT IMPLANT DATA REVIEWED: Not Applicable CREATININE: Creatinine Date Value Ref Range Status 12/13/2021 0.73 0.73 - 1.22 mg/dL Final 06/09/2021 0.77 0.73 - 1.22 mg/dL Final 08/13/2020 0.74 0.73 - 1.22 mg/dL Final Estimated Glomerular Filtration Rate Date Value Ref Range Status 12/13/2021 100 >=60 mL/min/1.73m Final Comment: Estimated Glomerular Filtration Rate (eGFR) is calculated using the 2020 CKD-EPI creatinine equation. This equation utilizes serum creatinine, sex, and age as parameters. The creatinine assay has traceable calibration to isotope dilution-mass spectrometry. Refer to KDIGO guidelines for clinical interpretation. In patients with unstable renal function, e.g. those with acute kidney injury, the eGFR may not accurately reflect actual GFR. eGFR- Date Value Ref Range Status 06/09/2021 >60 Final P.O.C.T. RESULTS: N/A January 02, [address] PERFORMED: No IV SITE: Ambulatory: A peripheral IV was started in the Right forearm with a Angio cath: 22 gauge. POST EXAM PIV STATUS: Discontinued PROCEDURE TYPE: NM Stress: 11.9 mCi [id number] was administered IV for Rest Imaging at 07:19 by . 34.5 mCi [id number] was administered IV for Stress Imaging at 08:09 by . PATIENT DISCHARGED TO: Ambulatory patient, left NM department area. A Diagnostic radioactive procedure has taken place, with no further precautions necessary other than routine body substance precautions. More information regarding radiation safety can be found using this link: [email or web address] SIGNATURE: PARDEEP Cruz PATIENT NAME: Erik Clarke DATE: January 02, 2022 TIME: 8:33 AM PAGER/CONTACT #: documented in this encounter [facility] 12-29-2021 Miscellaneous Notes Last appointment: 11-14-21 Next appointment: 05-17-22 Pharmacy verified in [facility]. Refill(s) requested: Requested Prescriptions Pending Prescriptions Disp Refills rosuvastatin (CRESTOR) 10 mg tablet [Pharmacy Med Name: ROSUVASTATIN TAB 10MG] 90 tablet 3 Sig: TAKE 1 TABLET ONCE DAILY Order(s) pended. Please advise. Moira Okeefe MA, PIN WORKER documented in this encounter [facility] 12-19-2021 Miscellaneous Notes Patient called PharmD. Stated his local pharmacy cannot get Ozempic in stock. He called [facility], they can't get the 2mg pen in stock but they can get the 1mg pen in stock. PharmD sent in a prescription for the 1mg pen but with instructions for 2mg dosing. Advised patient to contact PharmD with any further issues. The following approved medication requests have been transmitted electronically. Requested Prescriptions Pending Prescriptions Disp Refills semaglutide (OZEMPIC) 1 mg/dose (4 mg/3 mL) pen 18 mL 3 Sig: Inject 2 mg subcutaneously one time a week. Do 2 injections of 1mg at separate injection sites as discussed. Hany Garcia RPh documented in this encounter [facility] 12-16-2021 History of Present illness Narrative Images from the original note were not included. [facility] SECTION [facility] CARDIOLOGY [facility] OUTPATIENT VISIT DATE December 16, 2021 PRIMARY CARE PHYSICIAN: Denis Rivero [address] [phone] HISTORY OF PRESENT ILLNESS: Mr. lCarke is a 66 year old male. Patient returns for follow-up secondary to a history of coronary artery disease remotely. He has known moderate aortic stenosis by recent echocardiography as well as history of hypertension, hyperlipidemia and diabetes. The patient denies chest discomfort and dyspnea per se but states he is having difficulty completing tasks for which symptoms are becoming gradually worse over time. He states he must sit down and rest or take a break from his exertional activities to a greater degree as time has passed. He denies orthopnea, paroxysmal nocturnal dyspnea, palpitations, near-syncope or syncope. PLAN AND RECOMMENDATIONS: The patient symptoms may represent angina or cardiac decompensation for which we have asked him to relatively quiesced his activities. We discussed the need for further evaluation with nuclear stress imaging. This will be pharmacologic due to prior history. We will follow-up with him shortly thereafter. In the interim we have asked him to see if he is having challenges with diet or adequate hydration and his activities. He will pay more attention to be more aware but he is happy that his hemoglobin A1c has improved. He states that he has checked during some of these episodes and his blood sugar is in the 140s. Once again we will follow-up with him in the near future regardless of results of his nuclear stress test. Vitals: BP 106/70 Pulse 68 Ht 172.7 cm (5' 8) Wt 91.2 kg (201 lb) SpO2 98% BMI 30.56 kg/m Physical Exam Vitals reviewed. Constitutional: General: He is not in acute distress. Appearance: He is well-developed. He is not diaphoretic. HENT: Head: Normocephalic and atraumatic. Right Ear: External ear normal. Left Ear: External ear normal. Nose: Nose normal. Eyes: General: No scleral icterus. Right eye: No discharge. Left eye: No discharge. Pupils: Pupils are equal, round, and reactive to light. Neck: Thyroid: No thyromegaly. Vascular: No JVD. Cardiovascular: Rate and Rhythm: Normal rate and regular rhythm. Heart sounds: Murmur heard. Crescendo decrescendo systolic murmur is present with a grade of 2/6. No friction rub. No gallop. Pulmonary: Effort: Pulmonary effort is normal. No respiratory distress. Breath sounds: Normal breath sounds. No wheezing or rales. Abdominal: General: Bowel sounds are normal. Palpations: Abdomen is soft. Musculoskeletal: General: Normal range of motion. Cervical back: Neck supple. Skin: General: Skin is warm and dry. Coloration: Skin is not pale. Neurological: Mental Status: He is alert and oriented to person, place, and time. Cranial Nerves: No cranial nerve deficit. Psychiatric: Mood and Affect: Mood is not anxious or depressed. Behavior: Behavior normal. Thought Content: Thought content normal. Judgment: Judgment normal. Review of Systems Constitutional: Negative for activity change, appetite change, fatigue and unexpected weight change. HENT: Negative for ear pain and trouble swallowing. Eyes: Negative for pain and visual disturbance. Respiratory: Negative for chest tightness and shortness of breath. Cardiovascular: Positive for chest pain (fleeting at rest for 5-6 seconds., atypical). Negative for palpitations and leg swelling. Gastrointestinal: Negative for abdominal pain and blood in stool. Endocrine: Negative for cold intolerance and heat intolerance. Genitourinary: Negative for dysuria, hematuria and scrotal swelling. Musculoskeletal: Negative for arthralgias and myalgias. Skin: Negative for pallor and rash. Allergic/Immunologic: Negative for immunocompromised state. Neurological: Negative for dizziness, syncope and light-headedness. Hematological: Negative for adenopathy. Does not bruise/bleed easily. Psychiatric/Behavioral: Negative for sleep disturbance. The patient is not nervous/anxious. PAST MEDICAL HISTORY Diagnosis Date BPH (benign prostatic hypertrophy) with urinary retention 01/22/2012 Bradycardia ED (erectile dysfunction) Hyperlipidemia LDL goal < 100 01/22/2012 Hypertension 01/22/2012 Obesity Type 2 diabetes mellitus not at goal 01/22/2012 PAST SURGICAL HISTORY Procedure Laterality Date CARDIAC CATHETERIZATION HX 1999, 2004 no blockages, mildly leaky valve PAST SURGICAL HISTORY OF 12/2015 L3-S1 laminectomy, decompression PAST SURGICAL HISTORY OF 01/16/2017 Lumbar reexploration L3-S1 with laminectomy and decompression Social History Tobacco Use Smoking status: Former Types: Cigarettes Quit date: 01/21/2010 Years since quittin.9 Smokeless tobacco: Current Types: Chew Vaping Use Vaping Use: Never used Substance Use Topics Alcohol use: No Drug use: No FAMILY HISTORY Problem Relation Age of Onset Diabetes Mother Heart Father Diabetes Father ALLERGIES No Known Allergies CURRENT MEDICATIONS: empagliflozin (JARDIANCE) 10 mg tablet^Take 1 tablet by mouth daily with breakfast.^Disp: 90 tablet^Rfl: 3 semaglutide (OZEMPIC) 2 mg/dose (8 mg/3 mL) pen injector^Inject 2 mg subcutaneously one time a week.^Disp: 9.64 mL^Rfl: 5 metoprolol tartrate, short acting, (LOPRESSOR) 50 mg tablet^Take 1 tablet by mouth twice daily.^Disp: 180 tablet^Rfl: 1 insulin glargine (LANTUS SOLOSTAR, BASAGLAR KWIKPEN) 100 unit/mL (3 mL)^Inject 44 Units subcutaneously daily at bedtime.^Disp: 14 Pen^Rfl: 3 blood sugar diagnostic (ACCU-CHEK LATIA PLUS TEST STRP) test strip^Use to test blood sugars up to twice daily when CGM reading seems inaccurate. Insulin-dependent diabetes, E11.9^Disp: 200 Strip^Rfl: 3 lisinopril (ZESTRIL, PRINIVIL) 40 mg tablet^TAKE 1 TABLET BY MOUTH TWICE A DAY^Disp: 180 tablet^Rfl: 3 chlorthalidone (HYGROTON) 25 mg tablet^TAKE 1 TABLET BY MOUTH EVERY DAY^Disp: 90 tablet^Rfl: 3 metFORMIN ER (GLUCOPHAGE XR) 500 mg 24 hr tablet^TAKE 2 TABLETS 2 TIMES DAILY WITH MEALS^Disp: 360 tablet^Rfl: 3 fenofibrate nanocrystallized (TRICOR) 145 mg tablet^TAKE 1 TABLET BY MOUTH EVERY DAY^Disp: 90 tablet^Rfl: 3 amLODIPine (NORVASC) 10 mg tablet^Take 1 tablet by mouth once daily.^Disp: 90 tablet^Rfl: 3 flash glucose sensor (FREESTYLE ANA 2 SENSOR) kit^Use one sensor every 14 days, IDDM, E11.9^Disp: 2 Kit^Rfl: 11 BD ULTRAFINE III MINI PEN 31 gauge x 3/16^USE AND DISCARD 1 PEN NEEDLE ONCE DAILY WITH INSULIN PEN^Disp: 90 Each^Rfl: 3 rosuvastatin (CRESTOR) 10 mg tablet^TAKE 1 TABLET ONCE DAILY^Disp: 90 tablet^Rfl: 3 sildenafil (VIAGRA) 100 mg tablet^Take 1 tablet by mouth as needed. 30-60 minutes before sexual intercourse.^Disp: 5 tablet^Rfl: 1 flash glucose scanning reader (FREESTYLE ANA 2 READER)^Use to test blood sugar using CGM scanners as directed.^Disp: 1 Each^Rfl: 0 Blood Pressure Monitor^1 Each one time a week.^Disp: 1 Kit^Rfl: 0 aspirin, enteric coated (ECOTRIN LOW STRENGTH) 81 mg EC tablet^Take 1 tablet by mouth once daily.^Disp: ^Rfl: Lancets lancets^Use as instructed to test glucose 2 times daily.^Disp: 200 Each^Rfl: 1 Burke Barron DO, FACC, FACOI Clinical and Preventive Cardiology Department of Medicine and Division of Cardiology, [facility] [employer] can worker [facility] [employer] Setter of Cong[facility] Failure [facility] Cardiology Office [employer] [facility] Staff [employer] Department of Cardiovascular Medicine/[facility] [place], [facility] Clinical Top Lift And Automatic Window Repairer Profressor of Medicine, [facility] - [facility] Please note: This note has been produced using speech recognition software and may contain errors related to that system including yovany, punctuation, spelling, words, gender and phrases that may be inappropriate. documented in this encounter [facility] 12-13-2021 History of Present illness Narrative Reason for Consultation: DM Type 2 Referring Physician: Denis Rivero [address] [facility] [address] HISTORY OF PRESENT ILLNESS Mr. Clarke is a 66 year old male presenting here today for a follow up of DM Type 2. As I recall, he was initially diagnosed with diabetes 2006. LV 09/28/20 A1C today is 7.9 One episode of balanitis which resolved. He has been working with the pharmacist on DM control and ozempic was increased yesterday. He is under the care of pain management. Snacking overnight and is usually sweet. History in addition to diabetes include: hypertension and hyperlipidemia, obesity Current diabetes regimen is as follows: Glimepiride 4 mg daily --not taking ozempic 2 mg weekly--- increased yesterday. jardiance 10 mg daily--reduced from 25 mg daily after episode of balanitis Metformin ER 2 tabs BID Basaglar 44 units daily night Previous DM medication: Glimepiride he is checking his blood glucose continuously using Ana he does bring a log book today for review. LDE Blood Sugar Frequency: BG ranges: Freestyle ana 14 day download (11/30/21 to 12/13/21) In range 63% High 29% Very high 8% Low/very low 0% Avg glucose 176 Estimated A1C 7.5 % BG spikes during night and also evening. He is best controlled from 6 AM to 5 pm. Hypoglycemia frequency: rare Hypoglycemia awareness: Yes Regarding symptoms of hypoglycemia, he is not experiencing any symptoms such as polyuria, polydipsia, nocturia or rapid weight loss or blurry vision, Overall, the patient has no acute complaints at this time. PAST MEDICAL HISTORY Diagnosis Date BPH (benign prostatic hypertrophy) with urinary retention 01/22/2012 Bradycardia ED (erectile dysfunction) Hyperlipidemia LDL goal < 100 01/22/2012 Hypertension 01/22/2012 Obesity Type 2 diabetes mellitus not at goal 01/22/2012 PAST SURGICAL HISTORY Procedure Laterality Date CARDIAC CATHETERIZATION HX 1999, 2004 no blockages, mildly leaky valve PAST SURGICAL HISTORY OF 12/2015 L3-S1 laminectomy, decompression PAST SURGICAL HISTORY OF 01/16/2017 Lumbar reexploration L3-S1 with laminectomy and decompression FAMILY HISTORY Problem Relation Age of Onset Diabetes Mother Heart Father Diabetes Father Social History Tobacco Use Smoking status: Former Types: Cigarettes Quit date: 01/21/2010 Years since quittin.9 Smokeless tobacco: Current Types: Chew Substance Use Topics Alcohol use: No Drug use: No Allergies As of Date: 12/13/2021 (No Known Allergies) Fully Assessed 12/13/2021 Current Outpatient Medications Medication Sig Dispense Refill semaglutide (OZEMPIC) 2 mg/dose (8 mg/3 mL) pen injector Inject 2 mg subcutaneously one time a week. 9.64 mL 5 metoprolol tartrate, short acting, (LOPRESSOR) 50 mg tablet Take 1 tablet by mouth twice daily. 180 tablet 1 insulin glargine (LANTUS SOLOSTAR, BASAGLAR KWIKPEN) 100 unit/mL (3 mL) Inject 44 Units subcutaneously daily at bedtime. 14 Pen 3 blood sugar diagnostic (ACCU-CHEK LATIA PLUS TEST STRP) test strip Use to test blood sugars up to twice daily when CGM reading seems inaccurate. Insulin-dependent diabetes, E11.9 200 Strip 3 lisinopril (ZESTRIL, PRINIVIL) 40 mg tablet TAKE 1 TABLET BY MOUTH TWICE A DAY 180 tablet 3 chlorthalidone (HYGROTON) 25 mg tablet TAKE 1 TABLET BY MOUTH EVERY DAY 90 tablet 3 metFORMIN ER (GLUCOPHAGE XR) 500 mg 24 hr tablet TAKE 2 TABLETS 2 TIMES DAILY WITH MEALS 360 tablet 3 fenofibrate nanocrystallized (TRICOR) 145 mg tablet TAKE 1 TABLET BY MOUTH EVERY DAY 90 tablet 3 amLODIPine (NORVASC) 10 mg tablet Take 1 tablet by mouth once daily. 90 tablet 3 flash glucose sensor (FREESTYLE ANA 2 SENSOR) kit Use one sensor every 14 days, IDDM, E11.9 2 Kit 11 BD ULTRAFINE III MINI PEN 31 gauge x 3/16 USE AND DISCARD 1 PEN NEEDLE ONCE DAILY WITH INSULIN PEN 90 Each 3 rosuvastatin (CRESTOR) 10 mg tablet TAKE 1 TABLET ONCE DAILY 90 tablet 3 empagliflozin (JARDIANCE) 10 mg tablet Take 1 tablet by mouth daily with breakfast. 90 tablet 3 sildenafil (VIAGRA) 100 mg tablet Take 1 tablet by mouth as needed. 30-60 minutes before sexual intercourse. 5 tablet 1 flash glucose scanning reader (FREESTYLE ANA 2 READER) Use to test blood sugar using CGM scanners as directed. 1 Each 0 Blood Pressure Monitor 1 Each one time a week. 1 Kit 0 aspirin, enteric coated (ECOTRIN LOW STRENGTH) 81 mg EC tablet Take 1 tablet by mouth once daily. Lancets lancets Use as instructed to test glucose 2 times daily. 200 Each 1 Current Facility-Administered Medications Medication Dose Route Frequency Provider Last Rate Last Admin perflutren lipid microspheres 1.3 mL in NaCl (PF) 0.9% 10 mL injection (DEFINITY) INTRAVENOUS DIRECTED PRN Burke Barron, sodium chloride 0.9 % (flush) 10 mL (BD POSIFLUSH) 10 mL INTRAVENOUS DIRECTED PRN Burke Barron, REVIEW OF SYSTEMS Review of Systems Respiratory: Negative for difficulty breathing. Cardiovascular: Negative for chest pain. Gastrointestinal: Negative for nausea, vomiting, diarrhea and constipation. PHYSICAL EXAMINATION BP 120/78 Pulse 78 Ht 172.7 cm (5' 8) Wt 93 kg (205 lb) SpO2 98% BMI 31.17 kg/m2 Physical Exam Constitutional: Appearance: Normal appearance. Cardiovascular: Rate and Rhythm: Normal rate and regular rhythm. Pulmonary: Effort: Pulmonary effort is normal. Breath sounds: Normal breath sounds. Skin: General: Skin is warm and dry. Neurological: Mental Status: He is alert and oriented to person, place, and time. Psychiatric: Mood and Affect: Mood normal. Behavior: Behavior normal. DATA Creatinine Date Value Ref Range Status 06/09/2021 0.77 0.73 - 1.22 mg/dL Final Hemoglobin A1C (%) Date Value 04/05/2020 9.1 Hemoglobin A1C (POCT) (%) Date Value 12/13/2021 7.9 ) No components found for: URINEALBUMIN Cholesterol, Total (mg/dL) Date Value 06/09/2021 92 04/05/2020 146 HDL Cholesterol (mg/dL) Date Value 06/09/2021 33 04/05/2020 31 LDL Cholesterol (mg/dL) Date Value 06/09/2021 38 04/05/2020 53 Triglyceride (mg/dL) Date Value 06/09/2021 107 04/05/2020 310 IMPRESSION: Mr. Clarke is a 66 year old male here for evaluation of DM Type 2 complicated by hypertension, hyperlipidemia, obesity RECOMMENDATIONS: (E11.9, Z79.4) Type 2 diabetes mellitus without complication, with long-term current use of insulin ([facility]) (primary encounter diagnosis) Comment: Glycemic control is above goal. Ozempic increased yesterday. Plan: HEMOGLOBIN A1C (POC), empagliflozin (JARDIANCE) 10 mg tablet Continue current DM regimen. Follow up in 6 months. Sooner if needed. (I10) Essential hypertension Comment/Plan: managed per PCP; pharmacy (E66.9, Z68.31) Class 1 obesity with serious comorbidity and body mass index (BMI) of 31.0 to 31.9 in adult, unspecified obesity type Comment:Body mass index is 31.17 kg/m . Plan: Encouraged increase dietary and exercise efforts as able Medical Decision Making: Level: 3 - Low Sunshine Banuelos, MSN, HOME PERFORMANCE LABORER, CARDIOLOGY PHYSICIAN ASSISTANT-C, CDE Endocrinology [facility] Medical Office [facility]/[address] [place] [address] Fax: documented in this encounter [facility] 12-12-2021 History of Present illness Narrative Images from the original note were not included. Primary Care Pharmacy Visit CC (Reason for Consult): Diabetes Goal: A1c < 7% Collaborating Provider: Dr. Rivero Last Provider Visit: 11/14/21 Erik Clarke is a 66 year old male presenting for follow up visit in person. Patient consents to pharmacy collaborative practice agreement. Patient is presenting today for f/up pharmacotherapy management appointment for diabetes. At PharmD visit on 04/12/20, metformin was switched to ER formulation and Basaglar increased. At PharmD visit on 05/10/20, Ozempic was started and Januvia discontinued. Amlodipine was also initiated. At PharmD visit on 06/15/20, no DM med changes made but amlodipine was increased. At PharmD visit on 06/28, no med changes were made and CGM insertion/education was performed. At PharmD visit on 07/12/20, Ozempic was increased and HCTZ was changed to chlorthalidone. Since then, glimepiride was changes to once daily in the morning to prevent hypoglycemia. At endo visit on 09/28, Jardiance was decreased to 10mg d/t candidal balanitis and Basaglar was increased (recommendation to d/c Jardiance if it occurs again or persists). On 02/17 endo lowered Basaglar dose due to low BG. On 06/13 endo stopped Basaglar and switched him to glipizide 2.5mg BID. At PharmD visit on 06/27, patient reported BGs increased significantly since stopping insulin so he restarted Basaglar 10 days prior. He was having issues accessing Ozempic and had been off x 2 weeks but was planning to start later that week. Insulin was restarted, glipizide was stopped, and patient encouraged to restart Ozempic. Patient also encouraged to reduce caffeine intake. At last PharmD visit on 07/26, Basaglar increased. At last PCP appt, no med changes made. Subjective: HPI: Patient feels sugars are higher than usual, thinks it is due to his diet. I'm really trying to watch. Last week had peach cobbler, went very high, into 400s. When eating mashed potatoes will let it sit for 24 hours so most of starch leaves. Frequently waking up in the middle of the night and eats something, has a craving for sweets. This AM had a piece of bologna with cheese. Overall feels he is tolerating meds well. Personal goals: BG reduction and weight loss. Current DM Medications: Metformin ER 500mg tabs - 1000mg BID Empagliflozin (Jardiance) 10mg daily Semaglutide (Ozempic) 1mg weekly on Mondays Insulin glargine (Basaglar) 44 units daily every evening Past DM medications: Ariella Thorpevijayoksana, can't remember why he stopped it Jardiance 25mg - balanitis Current HTN Medications: Lisinopril 40mg BID Metoprolol tartrate 50mg BID Amlodipine 10mg daily Chlorthalidone 25mg daily GLYCEMIC CONTROL: Preventative Medications: On MARY BETH/ARB: Yes On Statin: Yes ROS: Patient denies CP, SOB, MORGAN, blurred vision, dizziness or lightheadedness Patient denies symptoms of hypoglycemia (sweating, anxiety, palpitations, hunger, and tremor) Patient denies symptoms of hyperglycemia (polyuria, polydipsia, polyphagia) Patient denies potential medication adverse effects DIET/EXERCISE/SOCIAL Hx: Beverages: stopped drinking diet pop, now drinking water; trying to drink black coffee instead of using creamer 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; trying to walk more with MEDICATIONS: Pill bottles are not present Adherence: denies missed doses Pharmacy: [facility] in [place]; [facility] Mail Order Rx coverage: [facility], on 's insurance; will be going on Medicare on April 23 Affordability: no issues Diabetes supplies: One Touch Ultra, Free Style Ana Organization System: pill box ACTIVE PROBLEM LIST Type 2 Diabetes Mellitus Without Complication, With Long-Term Current Use of Insulin (Hcc) Hypertension Hyperlipidemia Benign Prostatic Hyperplasia With Lower Urinary Tract Symptoms Colon Polyps Erectile Dysfunction Prolapsed Lumbar Disc Other Chronic Pain Chewing Tobacco Nicotine Dependence Without Complication Lumbar Spondylosis Ddd (Degenerative Disc Disease), Lumbar Lumbar Radiculopathy Bradycardia Nicotine use disorder, F17.2 Non-Rheumatic Aortic Stenosis Coronary Artery Disease Involving [place] Coronary Artery of [place] Heart Without Angina Pectoris Rotator Cuff Syndrome of Left Shoulder PAST MEDICAL HISTORY Diagnosis Date BPH (benign prostatic hypertrophy) with urinary retention 01/22/2012 Bradycardia ED (erectile dysfunction) Hyperlipidemia LDL goal < 100 01/22/2012 Hypertension 01/22/2012 Obesity Type 2 diabetes mellitus not at goal 01/22/2012 Past medical, family and social history reviewed and updated. ALLERGIES No Known Allergies Medication List Medication Directions Comments Action/Plan amLODIPine (NORVASC) 10 mg tablet Take 1 tablet by mouth once daily. aspirin, enteric coated (ECOTRIN LOW STRENGTH) 81 mg EC tablet Take 1 tablet by mouth once daily. BD ULTRAFINE III MINI PEN 31 gauge x 3/16 USE AND DISCARD 1 PEN NEEDLE ONCE DAILY WITH INSULIN PEN Blood Pressure Monitor 1 Each one time a week. blood sugar diagnostic (ACCU-CHEK LATIA PLUS TEST STRP) test strip Use to test blood sugars up to twice daily when CGM reading seems inaccurate. Insulin-dependent diabetes, E11.9 chlorthalidone (HYGROTON) 25 mg tablet TAKE 1 TABLET BY MOUTH EVERY DAY empagliflozin (JARDIANCE) 10 mg tablet Take 1 tablet by mouth daily with breakfast. fenofibrate nanocrystallized (TRICOR) 145 mg tablet TAKE 1 TABLET BY MOUTH EVERY DAY flash glucose scanning reader (Outracks TechnologiesSTYLE ANA 2 READER) Use to test blood sugar using CGM scanners as directed. flash glucose sensor (FREESTYLE ANA 2 SENSOR) kit Use one sensor every 14 days, IDDM, E11.9 insulin glargine (LANTUS SOLOSTAR, BASAGLAR KWIKPEN) 100 unit/mL (3 mL) Inject 44 Units subcutaneously daily at bedtime. Lancets lancets Use as instructed to test glucose 2 times daily. lisinopril (ZESTRIL, PRINIVIL) 40 mg tablet TAKE 1 TABLET BY MOUTH TWICE A DAY metFORMIN ER (GLUCOPHAGE XR) 500 mg 24 hr tablet TAKE 2 TABLETS 2 TIMES DAILY WITH MEALS metoprolol tartrate, short acting, (LOPRESSOR) 50 mg tablet Take 1 tablet by mouth twice daily. rosuvastatin (CRESTOR) 10 mg tablet TAKE 1 TABLET ONCE DAILY semaglutide (OZEMPIC) 1 mg/dose (4 mg/3 mL) pen injector Inject 1 mg subcutaneously one time a week. sildenafil (VIAGRA) 100 mg tablet Take 1 tablet by mouth as needed. 30-60 minutes before sexual intercourse. Objective: Exam: Last 3 Encounter BP Readings: Date: BP: 11/14/2021 118/64[MD recheck[ 07/26/2021 136/71 06/27/2021 148/79 Wt: 91.7 kg (202 lb 1.6 oz) BMI: 30.74 kg/(m^2) LABS: Reviewed Lab Results Component Value Date HBA1C 7.8 06/09/2021 HBA1C 7.3 02/02/2021 HBA1C 7.1 10/11/2020 HBA1C 9.1 04/05/2020 HBA1C 9.0 11/03/2019 HBA1C 8.4 03/14/2019 HBA1C 8.0 08/24/2018 CMP: Glucose 147 06/09/2021 BUN 19 06/09/2021 Creatinine 0.77 06/09/2021 Sodium 138 06/09/2021 Potassium 3.5 06/09/2021 Chloride 100 06/09/2021 CO2 24 06/09/2021 Protein, Total 7.6 06/09/2021 Albumin 4.7 06/09/2021 Calcium 9.9 06/09/2021 Alkaline Phosphatase 42 06/09/2021 Bilirubin, Total 0.8 06/09/2021 AST 14 06/09/2021 ALT 18 06/09/2021 eGFR >60 Lab Results Component Value Date CHOL 92 06/09/2021 CHOL 146 04/05/2020 LDL 38 06/09/2021 LDL 53 04/05/2020 HDL 33 06/09/2021 HDL 31 04/05/2020 TG 107 06/09/2021 TG 310 04/05/2020 The ASCVD Risk score (Prabhjot KIM Jr., et al., 2013) failed to calculate for the following reasons: The valid total cholesterol range is 130 to 320 mg/dL Albumin/Creat Ratio (mg/g) Date Value 06/09/2021 <25 PHARMACOTHERAPY ASSESSMENT/PLAN: 1. Uncontrolled type 2 diabetes mellitus with hyperglycemia (HCC) - ICD9: 250.02, ICD10: E11.65 A1c goal < 7%; uncontrolled (last A1c 7.8%); due for A1c; CGM report not at goal, TIR is 62%; patient feels BG elevations due to food, trying to be careful and exercise more; no issues with lows; personal goals are BG control and weight loss; will increase Ozempic today and f/up in 2 mo; patient will get on Medicare in April - worried about med costs and not having FL2 sensors anymore; will renal fxn and LFTs sufficient for use INCREASE Ozempic to 2mg weekly Counseled on potential GI ADEs with dose adjustment and how to mitigate GI issues CONTINUE metformin ER 1000mg BID, Jardiance 10mg daily, and Basaglar 44 units daily Encouraged increased physical activity (walking after dinner with ) Advised patient to talk with Medicare brokerage clerk to select a plan that covers Ozempic and Jardiance. Discussed how he won't qualify for Medicare coverage of CGM since only on 1 insulin injection per day but perhaps could use coupon card HbA1c: due now, patient agreeable to go to lab this week Patient is scheduled to see PCP on 05/17. Patient to have PharmD f/u on 03/13. Patient verbalized understanding of instructions. Hany Garcia PharmD, [facility] Primary Care Clinical Pharmacist The majority of the pharmacy visit (> 50%) was spent counseling and/or coordinating care for the patient. interaction: face to face time was 28 minutes. documented in this encounter [facility] 12-12-2021 Instructions Hany Garcia RPh - 12/12/2021 9:00 AM EDT INCREASE Ozempic to 2mg weekly. Keep all other medications the same. Try to start walking in the evenings after dinner. documented in this encounter [facility] 12-02-2021 Miscellaneous Notes Patient's letter per provider placed in outgoing box. Perla Don) documented in this encounter [facility] 11-14-2021 Instructions Denis Rivero MD - 11/14/2021 1:02 PM EDT Get the shingrix vaccine at the pharmacy Do the stool test Continue the current medications Keep working on diet, exercise, and weight control Follow up here in 6 months documented in this encounter [facility] 11-14-2021 History of Present illness Narrative BP CONTROLLED (<130/80) Never done SHINGRIX VACCINE(1 of 2) Never done DIABETIC FOOT EXAM due on 09/28/2021 COLORECTAL CANCER SCREENING due on 10/10/2021 DEPRESSION SCREENING due on 10/12/2021 PNEUMOCOCCAL: 65+(2 - PCV) due on 10/12/2021 Erik Clarke is a 66 year old male presenting for annual check up DM: Patient has been following with Hany as well as endocrinology Blood sugars are ranging in the Patient has been doing the Ozempic, metformin, Lantus, Jardiance Has been running in the 120-140 Will go up after he eats (up to 250) Will comeback down quickly though Very happy with how well controlled his blood sugars are now CAD/HTN/HLd: No issues with the medications Does try to watch his diet is much as possible Reports no chest pain or palpitations DDD: Does follow with PM Has been fairly stable No acute issues with this (Patient is not seen pain management in some time as his back seems to be doing well) He has doing good overall He has not need a pain medication in some time HISTORIES: PAST MEDICAL HISTORY Diagnosis Date BPH (benign prostatic hypertrophy) with urinary retention 01/22/2012 Bradycardia ED (erectile dysfunction) Hyperlipidemia LDL goal < 100 01/22/2012 Hypertension 01/22/2012 Obesity Type 2 diabetes mellitus not at goal 01/22/2012 PAST SURGICAL HISTORY Procedure Laterality Date CARDIAC CATHETERIZATION HX 2000, 2005 no blockages, mildly leaky valve PAST SURGICAL HISTORY OF 12/2015 L3-S1 laminectomy, decompression PAST SURGICAL HISTORY OF 01/16/2017 Lumbar reexploration L3-S1 with laminectomy and decompression FAMILY HISTORY Problem Relation Age of Onset Diabetes Mother Heart Father Diabetes Father Social History: Social History Tobacco Use Smoking status: Former Smoker Types: Cigarettes Quit date: 01/21/2010 Years since quittin.8 Smokeless tobacco: Current User Types: Chew Substance Use Topics Alcohol use: No Drug use: No Social History Socioeconomic History Marital status: Spouse name: Not on file Number of children: Not on file Years of education: Not on file Highest education level: Not on file Occupational History 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 Tobacco Use Smoking status: Former Smoker Types: Cigarettes Quit date: 01/21/2010 Years since quittin.8 Smokeless tobacco: Current User Types: Chew Substance and Sexual Activity Alcohol use: No Drug use: No Sexual activity: Not on file Other Topics Concerns: Service: Not Asked Blood Transfusions: Not Asked Caffeine Concern: No Occupational Exposure: Not Asked Hobby Hazards: Not Asked Sleep Concern: Yes trouble with his back and shoulders Stress Concern: No Weight Concern: No Special Diet: No Back Care: Yes Exercise: Yes walk 3 miles per day Bike Helmet: Not Asked Seat Belt: Yes Self-Exams: Not Asked Social History Narrative Grandson lives with them (has since he was born) Social Determinants of Health Financial Resource Strain: Not on file Food Insecurity: Not on file Transportation Needs: Not on file Physical Activity: Not on file Stress: Not on file Social Connections: Not on file Housing Stability: Not on file Allergies: ALLERGIES No Known Allergies Medications: metoprolol tartrate, short acting, (LOPRESSOR) 50 mg tablet Take 1 tablet by mouth twice daily. insulin glargine (LANTUS SOLOSTAR, BASAGLJABIER COLESIKPEN) 100 unit/mL (3 mL) Inject 44 Units subcutaneously daily at bedtime. blood sugar diagnostic (ACCU-CHEK LATIA PLUS TEST STRP) test strip Use to test blood sugars up to twice daily when CGM reading seems inaccurate. Insulin-dependent diabetes, E11.9 lisinopril (ZESTRIL, PRINIVIL) 40 mg tablet TAKE 1 TABLET BY MOUTH TWICE A DAY chlorthalidone (HYGROTON) 25 mg tablet TAKE 1 TABLET BY MOUTH EVERY DAY metFORMIN ER (GLUCOPHAGE XR) 500 mg 24 hr tablet TAKE 2 TABLETS 2 TIMES DAILY WITH MEALS semaglutide (OZEMPIC) 1 mg/dose (4 mg/3 mL) pen injector Inject 1 mg subcutaneously one time a week. fenofibrate nanocrystallized (TRICOR) 145 mg tablet TAKE 1 TABLET BY MOUTH EVERY DAY amLODIPine (NORVASC) 10 mg tablet Take 1 tablet by mouth once daily. flash glucose sensor (FREESTYLE ANA 2 SENSOR) kit Use one sensor every 14 days, IDDM, E11.9 BD ULTRAFINE III MINI PEN 31 gauge x 3/16 USE AND DISCARD 1 PEN NEEDLE ONCE DAILY WITH INSULIN PEN rosuvastatin (CRESTOR) 10 mg tablet TAKE 1 TABLET ONCE DAILY empagliflozin (JARDIANCE) 10 mg tablet Take 1 tablet by mouth daily with breakfast. sildenafil (VIAGRA) 100 mg tablet Take 1 tablet by mouth as needed. 30-60 minutes before sexual intercourse. flash glucose scanning reader (FREESTYLE ANA 2 READER) Use to test blood sugar using CGM scanners as directed. Blood Pressure Monitor 1 Each one time a week. aspirin, enteric coated (ECOTRIN LOW STRENGTH) 81 mg EC tablet Take 1 tablet by mouth once daily. Lancets lancets Use as instructed to test glucose 2 times daily. REVIEW OF SYSTEMS GENERAL: No weight loss, malaise or fevers HEENT: Negative for frequent or significant headaches, No changes in hearing or vision, no nose bleeds or other nasal problems, Does wear glasses, sees eye doctor regularly NECK: Negative for lumps, goiter, pain and significant neck swelling RESPIRATORY: Negative for cough, hemoptysis, wheezing, COPD, dyspnea or shortness of breath CARDIOVASCULAR: Negative for chest pain, leg swelling, hypertension, CHF or palpitations GI: No nausea, vomiting, or diarrhea, No heartburn or reflux symptoms and No diarrhea, no constipation, no blood in the stools, bowels are regular : No history of dysuria, frequency or incontinence, Nocturia x1, no urgency, no hesitancy MUSCULOSKELETAL: Negative for joint pain or swelling, back pain or muscle pain and Left shoulder some slightly decreased range of motion, no tenderness in the back SKIN: Negative for lesions, rash, and itching PSYCH: Negative for sleep disturbance, mood disorder and recent psychosocial stressors HEMATOLOGY/LYMPHOLOGY: Negative for prolonged bleeding, bruising easily or swollen nodes ENDOCRINE: Negative for cold or heat intolerance, polyuria, polydipsia and goiter NEURO: No history of headaches, syncope, paralysis, seizures or tremors PHYSICAL EXAMINATION: BP 118/64 Pulse 90 Temp 37.1 C (98.7 F) Resp 18 Ht 172.7 cm (5' 7.99) Wt 91.7 kg (202 lb 1.6 oz) SpO2 97% BMI 30.74 kg/m General Appearance: Well appearing, alert, in no acute distress, well-hydrated, well nourished.. Head: Normocephalic, no masses, lesions, tenderness or abnormalities. Eyes: Anicteric sclera. Pupils are equally round and reactive to light. Extraocular movements are intact. . Ears: External ears normal, canals clear. Oropharynx: Lips, mucosa, and tongue normal, teeth and gums normal, oropharynx normal. Neck: Supple, no adenopathy; thyroid symmetric, normal size, no bruits. Lungs: Lungs clear to auscultation. No wheezing, rhonchi, rales.. Heart: RRR without murmur, gallop, or rubs. No ectopy. Abdomen: Normal abdominal exam, Abdomen soft, non-tender. Bowel sounds normal. No masses, organomegaly. Extremities: No deformities, edema, skin discoloration, clubbing or cyanosis. Good capillary refill. , Feet: No sores, no ulcers according to patient, sensation is grossly normal, pulses are normal. Musculoskeletal: No joint swelling, deformity, or tenderness, Left shoulder decreased range of motion in all valdez Back: No tenderness in the midline or paraspinals. Peripheral Pulses: Normal. Neurologic: Gait normal. Reflexes normal and symmetric. Sensation grossly intact.. Psych: Appropriate mood and affect, maintains good eye contact, answers questions appropriately. ASSESSMENT/PLAN: 1. Medicare annual wellness visit, initial - ICD9: V70.0, ICD10: Z00.00 (primary diagnosis) - Counseled on healthy diet and regular exercise - Discussed need for and benefit of weight loss. BMI 30.74 kg/(m^2) - Colorectal cancer screening recommended - agrees to iFOBT testing - Depression screening tool completed and reviewed with patient. Based on score and interview, patient is not at risk for depression and recommended no further intervention at this time. - Patient was counseled [id number] by myself (the billing provider) for the following immunizations and vaccine components, including side effects: Pneumococcal . Patient consents for immunization and understands risks and benefits. A VIS sheet on each immunization was given to the patient. -Overall, patient does appear to be in fairly good health Counseled on importance of remaining active Will get Prevnar 20 today Recommend getting the Shingrix vaccine Patient is up-to-date with all his COVEntreda vaccines Stool card was given today 2. Type 2 diabetes mellitus without complication, with long-term current use of insulin (HCC) - ICD9: 250.00, V58.67, ICD10: E11.9, Z79.4 Under improving control Does follow with endocrinology as well as Pharm.D. Feels that his blood sugars are doing great Tolerating medications Does try to watch his diet Hemoglobin A1C (%) Date Value 06/09/2021 7.8 02/02/2021 7.3 10/11/2020 7.1 07/09/2020 8.0 04/05/2020 9.1 03/14/2019 8.4 08/24/2018 8.0 02/25/2018 8.7 08/24/2017 8.4 Hemoglobin A1C (POCT) (%) Date Value 11/03/2019 9.0 3. Coronary artery disease involving [place] coronary artery of [place] heart without angina pectoris - ICD9: 414.01, ICD10: I25.10 4. Primary hypertension - ICD9: 401.9, ICD10: I10 5. Mixed hyperlipidemia - ICD9: 272.2, ICD10: E78.2 6. Obesity, Class I, BMI 30-34.9 - ICD9: 278.00, ICD10: E66.9 Continue to follow with cardiology Continue with current medications Blood pressures under reasonable control Check lipids at least annually Continue to work on diet, exercise, weight control Cholesterol, Total Date Value Ref Range Status 06/09/2021 92 <200 mg/dL Final Comment: <200 mg/dL, Desirable 200-239 mg/dL, Borderline high >239 mg/dL, High HDL Cholesterol Date Value Ref Range Status 06/09/2021 33 (L) >39 mg/dL Final Comment: 40-59 mg/dL, Acceptable >59 mg/dL, High: Negative risk factor for coronary heart disease <40 mg/dL, Low: Positive risk factor for coronary heart disease LDL Cholesterol Date Value Ref Range Status 06/09/2021 38 <100 mg/dL Final Comment: <100 mg/dL, Optimal 100-129 mg/dL, Near optimal/above optimal 130-159 mg/dL, Borderline high 160-189 mg/dL, High >189 mg/dL, Very high Secondary prevention optimal LDL Cholesterol levels are recommended to be < 70 mg/dL Triglyceride Date Value Ref Range Status 06/09/2021 107 <150 mg/dL Final Comment: <150 mg/dL, Normal 150-199 mg/dL, Borderline high 200-499 mg/dL, High >499 mg/dL, Very high 7. DDD (degenerative disc disease), lumbar - ICD9: 722.52, ICD10: M51.36 8. Lumbar radiculopathy - ICD9: 724.4, ICD10: M54.16 9. Other chronic pain - ICD9: 338.29, ICD10: G89.29 Has not seen pain management in some time Did get some injections Has not needed the pain medicine in some time Does try to remain mobile and active Continue monitoring for now 10. Benign prostatic hyperplasia with lower urinary tract symptoms, symptom details unspecified - ICD9: 600.01, ICD10: N40.1 Minimal symptoms Not currently on any medications Has some nocturia x1 No dysuria 11. Screening for colon cancer - ICD9: V76.51, ICD10: Z12.11 I FOBT kit was given to patient today - FECAL OCCULT BLOOD TEST MD Denis Kay MD Medicare Yearly Visit Medical B eligibilty date 11/15/19 Date of last exam last year Medications reviewed: Yes Erik likes to exercise by walking. He watches his diet for sodium, low fat and low cholesterol most of the time. List of current specialists seen: Cardiology Pain management Endocrinology Pharm.D. Ophthalmology End of Live Planning discussed including patients advanced directive wishes: Yes I am willing to follow Erik's advanced directives. PHQ-2 / Depression screen He in the past two weeks denies having felt down, depressed, hopeless or with little interest or pleasure in doing things. Functional Ability/Safety Screen 1. Was the patient's timed Up and Go test unsteady or longer than 30 seconds? No 2. Does the patient need help with the phone, transportation, shopping,preparing meals, housework, laundry, medications or managing money? No 3. Does your home have rugs in the hallway, lack of grab bars in the bathroom, lack of handrails on the stairs or have poor lighting? No Hearing Evaluation: normal PHYSICAL EXAM BP 118/64 Pulse 90 Temp 37.1 C (98.7 F) Resp 18 Ht 172.7 cm (5' 7.99) Wt 91.7 kg (202 lb 1.6 oz) SpO2 97% BMI 30.74 kg/m Alert and oriented X 3: YES Body mass index is 30.74 kg/m . Visual acuity: Grossly normal, does see eye doctor regularly ASSESSMENT/PLAN: 66 year old male The following prevention plan was discussed during the office visit and provided to the patient: - Weight Loss - Fall avoidance - Vaccines recommended Pneumococcal - Glaucoma screening - Colorectal Cancer screening Fecal occult blood testing Denis Rivero MD documented in this encounter [facility] 10-28-2021 Miscellaneous Notes Patient called PharmD and LMOM stating he needs a refill of insulin, metoprolol, and amlodipine sent to [facility] mail order pharmacy. He said his numbers were high so he is now taking 44 units of insulin and doing much better. Metoprolol and insulin refilled. Amlodipine should have sufficient fills until March 2022. The following approved medication requests have been transmitted electronically. Signed Prescriptions Disp Refills insulin glargine (LANTUS SOLOSTAR, BASAGLAR KWIKPEN) 100 unit/mL (3 mL) 14 Pen 3 Sig: Inject 44 Units subcutaneously daily at bedtime. BLAKE: No Authorizing Provider: DENIS RIVERO Ordering User: HANY GARCIA metoprolol tartrate, short acting, (LOPRESSOR) 50 mg tablet 180 tablet 1 Sig: Take 1 tablet by mouth twice daily. BLAKE: No Authorizing Provider: DENIS RIVERO Ordering User: HANY GARCIA Patient has upcoming PCP appt on 11/14 and PharmD appt on 12/12. A1c and BMP ordered. Called patient to inform him that refills were sent in. Patient also stated he has not yet received the fecal blood test kit that was mailed out on 10/18. PharmD advised that he call office at the end of next week if still not received. Hany Garcia PharmD, [facility] Primary Care Clinical Pharmacist [facility] documented in this encounter [facility] 10-18-2021 Miscellaneous Notes Patient notified and kit mailed out Pt due for FOBT. Please inform him and mail kit. Thanks, Brandee Bolton PA-C documented in this encounter [facility] 07-26-2021 History of Present illness Narrative Images from the original note were not included. Primary Care Pharmacy Visit CC (Reason for Consult): Diabetes Goal: A1c < 7% Collaborating Provider: Dr. Rivero Last Provider Visit: 06/09/21 Erik Clarke is a 65 year old male presenting for follow up visit in person. Patient consents to pharmacy collaborative practice agreement. . Patient is presenting today for f/up pharmacotherapy management appointment for diabetes. At PharmD visit on 04/12/20, metformin was switched from IR to ER formulation, and Basaglar was increased to 44 units daily. At PharmD visit on 05/10/20, Ozempic was started and Januvia discontinued. Amlodipine was also initiated for better BP control. At PharmD visit on 06/15/20, no DM med changes made but amlodipine was increased. At PharmD visit on 06/28, no med changes were made and CGM insertion/education was performed. At PharmD visit on 07/12, Ozempic was increased, and HCTZ was changed to chlorthalidone. Since then, glimepiride was changes to once daily in the morning to prevent hypoglycemia. At last PharmD visit on 08/16, no med changes made since CGM reports looked decently controlled. At endo visit on 09/28, Jardiance was decreased to 10mg d/t candidal balanitis and Basaglar was increased (recommendation to d/c Jardiance if it occurs again or persists). At last PCP visit, patient was treated for ED. At PharmD visit on 11/23, no med changes made. On 02/17 endo lowered Basaglar dose due to low BG. At last PCP appt, glimepiride dose was reduced. On 06/13 endo stopped Basaglar and switched him to glipizide 2.5mg BID. At last PharmD visit on 06/27, patient reported BGs increased significantly since stopping insulin so he restarted Basaglar 10 days prior. He was having issues accessing Ozempic and had been off x 2 weeks but was planning to start later that week. Insulin was restarted, glipizide was stopped, and patient encouraged to restart Ozempic. Patient also encouraged to reduce caffeine intake. 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 Has been on it for 4-5 weeks. No side effects when restarting med. When sugars get up to 250 mg/dL he gets thirsty. Says this doesn't happen very often, usually when he eats something bad. Current DM Medications: Metformin ER 1000mg BID Empagliflozin (Jardiance) 10mg daily Semaglutide (Ozempic) 1mg weekly on Mondays Insulin glargine (Basaglar) 32 units daily every evening Past DM medications: Ariella Moser, can't remember why he stopped it Current HTN Medications: Lisinopril 40mg BID Metoprolol tartrate 50mg BID Amlodipine 10mg daily Chlorthalidone 25mg daily GLYCEMIC CONTROL: Hypoglycemia: said he had a BG in the 60s several weeks ago around midnight, he didn't feel low How corrected: OJ Preventative Medications: On MARY BETH/ARB: Yes On Statin: Yes ROS: Patient denies CP, SOB, MORGAN, blurred vision, dizziness or lightheadedness Patient denies symptoms of hypoglycemia (sweating, anxiety, palpitations, hunger, and tremor) Patient denies symptoms of hyperglycemia (polyuria, polydipsia, polyphagia) Patient denies potential medication adverse effects DIET/EXERCISE/SOCIAL Hx: No changes Needs to exercise more; plans to start walking more MEDICATIONS: Pill bottles are not present Adherence: denies missed doses Pharmacy: [facility] in [place]; [facility] Mail Order Rx coverage: [facility], on 's insurance Affordability: no issues Diabetes supplies: One Touch Ultra, Free Style Ana Organization System: pill box ACTIVE PROBLEM LIST Type 2 Diabetes Mellitus Without Complication, With Long-Term Current Use of Insulin (Hcc) Hypertension Hyperlipidemia Benign Prostatic Hyperplasia With Lower Urinary Tract Symptoms Colon Polyps Erectile Dysfunction Prolapsed Lumbar Disc Other Chronic Pain Chewing Tobacco Nicotine Dependence Without Complication Lumbar Spondylosis Ddd (Degenerative Disc Disease), Lumbar Lumbar Radiculopathy Bradycardia Nicotine use disorder, F17.2 Non-Rheumatic Aortic Stenosis Coronary Artery Disease Involving [place] Coronary Artery of [place] Heart Without Angina Pectoris Rotator Cuff Syndrome of Left Shoulder PAST MEDICAL HISTORY Diagnosis Date BPH (benign prostatic hypertrophy) with urinary retention 01/22/2012 Bradycardia ED (erectile dysfunction) Hyperlipidemia LDL goal < 100 01/22/2012 Hypertension 01/22/2012 Obesity Type 2 diabetes mellitus not at goal 01/22/2012 Past medical, family and social history reviewed and updated. ALLERGIES No Known Allergies Medication List Medication Directions Comments Action/Plan amLODIPine (NORVASC) 10 mg tablet Take 1 tablet by mouth once daily. aspirin, enteric coated (ECOTRIN LOW STRENGTH) 81 mg EC tablet Take 1 tablet by mouth once daily. BD ULTRAFINE III MINI PEN 31 gauge x 3/16 USE AND DISCARD 1 PEN NEEDLE ONCE DAILY WITH INSULIN PEN Blood Pressure Monitor 1 Each one time a week. chlorthalidone (HYGROTON) 25 mg tablet TAKE 1 TABLET BY MOUTH EVERY DAY empagliflozin (JARDIANCE) 10 mg tablet Take 1 tablet by mouth daily with breakfast. fenofibrate nanocrystallized (TRICOR) 145 mg tablet TAKE 1 TABLET BY MOUTH EVERY DAY flash glucose scanning reader (Outracks TechnologiesSTYLE ANA 2 READER) Use to test blood sugar using CGM scanners as directed. flash glucose sensor (FREESTYLE ANA 2 SENSOR) kit Use one sensor every 14 days, IDDM, E11.9 HYDROcodone-acetaminophen (NORCO) 5-325 mg per tablet Take one po qd prn pain insulin glargine (LANTUS SOLOSTAR, BASAGLAR KWIKPEN) 100 unit/mL (3 mL) Inject 32 Units subcutaneously daily at bedtime. Lancets lancets Use as instructed to test glucose 2 times daily. lisinopril (ZESTRIL, PRINIVIL) 40 mg tablet TAKE 1 TABLET BY MOUTH TWICE A DAY metFORMIN ER (GLUCOPHAGE XR) 500 mg 24 hr tablet TAKE 2 TABLETS 2 TIMES DAILY WITH MEALS metoprolol tartrate, short acting, (LOPRESSOR) 50 mg tablet Take 1 tablet by mouth twice daily. rosuvastatin (CRESTOR) 10 mg tablet TAKE 1 TABLET ONCE DAILY semaglutide (OZEMPIC) 1 mg/dose (4 mg/3 mL) pen injector Inject 1 mg subcutaneously one time a week. sildenafil (VIAGRA) 100 mg tablet Take 1 tablet by mouth as needed. 30-60 minutes before sexual intercourse. Objective: Exam: VITALS: BP 136/71 Pulse 75 Last 3 Encounter BP Readings: Date: BP: 06/27/2021 148/79 06/22/2021 140/84 06/09/2021 124/76 Wt: 93 kg (205 lb 1.6 oz) BMI: 31.19 kg/(m^2) LABS: Reviewed Lab Results Component Value Date HBA1C 7.8 06/09/2021 HBA1C 7.3 02/02/2021 HBA1C 7.1 10/11/2020 HBA1C 9.1 04/05/2020 HBA1C 9.0 11/03/2019 HBA1C 8.4 03/14/2019 HBA1C 8.0 08/24/2018 CMP: Glucose 147 06/09/2021 BUN 19 06/09/2021 Creatinine 0.77 06/09/2021 Sodium 138 06/09/2021 Potassium 3.5 06/09/2021 Chloride 100 06/09/2021 CO2 24 06/09/2021 Protein, Total 7.6 06/09/2021 Albumin 4.7 06/09/2021 Calcium 9.9 06/09/2021 Alkaline Phosphatase 42 06/09/2021 Bilirubin, Total 0.8 06/09/2021 AST 14 06/09/2021 ALT 18 06/09/2021 Estimated Creatinine Clearance: 104.4 mL/min (based on SCr of 0.77 mg/dL). Lab Results Component Value Date CHOL 92 06/09/2021 CHOL 146 04/05/2020 LDL 38 06/09/2021 LDL 53 04/05/2020 HDL 33 06/09/2021 HDL 31 04/05/2020 TG 107 06/09/2021 TG 310 04/05/2020 The ASCVD Risk score (Prabhjot ALVAREZ Jr., et al., 2013) failed to calculate for the following reasons: The valid total cholesterol range is 130 to 320 mg/dL Albumin/Creat Ratio (mg/g) Date Value 06/09/2021 <25 PHARMACOTHERAPY ASSESSMENT/PLAN: 1. Uncontrolled type 2 diabetes mellitus with hyperglycemia (HCC) - ICD9: 250.02, ICD10: E11.65 (primary diagnosis) A1c goal < 7%; uncontrolled (last A1c 7.8%); TIR at goal >70%; no issues with lows - patient did not several low readings around midnight though was asymptomatic and readings were in 60s - could have been false lows; tolerating regimen well; will slightly increase insulin today and f/up after next PCP appt and A1c; renal fxn and LFTs sufficient for use INCREASE Basaglar to 36 units daily CONTINUE metformin ER 1000mg BID, Jardiance 10mg daily, and Ozempic 1mg weekly Advised to contact PharmD with any frequent low BG readings Ordered test strips for patient to test BG when has low CGM readings though asymptomatic ACEi/ARB for renal protection: yes, Scr and K+ sufficient Statin: yes, LFTs WNL HbA1c: due 09/06 2. Essential hypertension - ICD9: 401.9, ICD10: I10 BP goal < 140/90; controlled in office today; patient has not yet had caffeine today; took all meds around 7 AM; tolerating meds well; no dizziness or light-headedness; has BP monitor at home but not checking frequently; no sx alarm sx; no med changes today but will continue to monitor; in future if additional BP med adjustments need made, can consider switching metoprolol to carvedilol or adding spironolactone; renal fxn, K+, and HR sufficient for use CONTINUE lisinopril 40mg BID, metoprolol tartrate 50mg BID, amlodipine 10mg daily, and chlorthalidone 25mg daily Encouraged home BP monitoring with arm cuff Encouraged reducing caffeine intake (split caffeinated and decaf coffee) Patient is scheduled to see PCP on 11/14. Patient to have PharmD f/u on 12/12. Patient verbalized understanding of instructions. Hany Garcia PharmD, [facility] Primary Care Clinical Pharmacist [facility] The majority of the pharmacy visit (> 50%) was spent counseling and/or coordinating care for the patient. interaction: face to face time was 26 minutes. documented in this encounter [facility] 07-26-2021 Instructions Hany Garcia RPh - 07/26/2021 9:00 AM EDT INCREASE Basaglar to 36 units daily. CONTINUE all of your other medications. Try to cut back on your caffeine intake. Try mixing caffeinated with decaffeinated coffee. Start checking your blood pressure at home. Your goal is to be less than 130/80 or 140/90 mmHg. If your CGM reader says you are low but you don't feel it, double check with finger stick. documented in this encounter [facility] 09-28-2020 History of Past i llness Narrative Problem Noted Date Resolved Date Class 1 obesity with serious comorbidity and body mass index (BMI) of 31.0 to 31.9 in adult 09/28/2020 10/12/2020 Abnormal finding on echocardiogram 08/27/2018 10/12/2020 Overview: Thickened ventricular septum on echo from 2016 Heart murmur 08/27/2018 05/30/2019 Other and unspecified angina pectoris 07/15/2014 10/12/2020 documented as of this encounter (statuses as of 07/25/2021) [facility] History of Past illness Narrative* Problem Noted Date Resolved Date Class 1 obesity with serious comorbidity and body mass index (BMI) of 31.0 to 31.9 in adult 09/28/2020 10/12/2020 Abnormal finding on echocardiogram 08/27/2018 10/12/2020 Overview: Thickened ventricular septum on echo from 2015 Heart murmur 08/27/2018 05/30/2019 Other and unspecified angina pectoris 07/15/2014 10/12/2020 documented as of this encounter (statuses as of 07/26/2021) [facility] History of Past illness Narrative* Problem Noted Date Resolved Date Class 1 obesity with serious comorbidity and body mass index (BMI) of 31.0 to 31.9 in adult 09/28/2020 10/12/2020 Abnormal finding on echocardiogram 08/27/2018 10/12/2020 Overview: Thickened ventricular septum on echo from 2015 Heart murmur 08/27/2018 05/30/2019 Other and unspecified angina pectoris 07/15/2014 10/12/2020 documented as of this encounter (statuses as of 10/18/2021) [facility] History of Past illness Narrative* Problem Noted Date Resolved Date Class 1 obesity with serious comorbidity and body mass index (BMI) of 31.0 to 31.9 in adult 09/28/2020 10/12/2020 Abnormal finding on echocardiogram 08/27/2018 10/12/2020 Overview: Thickened ventricular septum on echo from 2015 Heart murmur 08/27/2018 05/30/2019 Other and unspecified angina pectoris 07/15/2014 10/12/2020 documented as of this encounter (statuses as of 10/28/2021) [facility] History of Past illness Narrative* Problem Noted Date Resolved Date Class 1 obesity with serious comorbidity and body mass index (BMI) of 31.0 to 31.9 in adult 09/28/2020 10/12/2020 Abnormal finding on echocardiogram 08/27/2018 10/12/2020 Overview: Thickened ventricular septum on echo from 2015 Heart murmur 08/27/2018 05/30/2019 Other and unspecified angina pectoris 07/15/2014 10/12/2020 documented as of this encounter (statuses as of 11/14/2021) [facility] History of Past illness Narrative* Problem Noted Date Resolved Date Class 1 obesity with serious comorbidity and body mass index (BMI) of 31.0 to 31.9 in adult 09/28/2020 10/12/2020 Abnormal finding on echocardiogram 08/27/2018 10/12/2020 Overview: Thickened ventricular septum on echo from 2015 Heart murmur 08/27/2018 05/30/2019 Other and unspecified angina pectoris 07/15/2014 10/12/2020 documented as of this encounter (statuses as of 12/02/2021) [facility] History of Past illness Narrative* Problem Noted Date Resolved Date Class 1 obesity with serious comorbidity and body mass index (BMI) of 31.0 to 31.9 in adult 09/28/2020 10/12/2020 Abnormal finding on echocardiogram 08/27/2018 10/12/2020 Overview: Thickened ventricular septum on echo from 2015 Heart murmur 08/27/2018 05/30/2019 Other and unspecified angina pectoris 07/15/2014 10/12/2020 documented as of this encounter (statuses as of 12/12/2021) [facility] History of Past illness Narrative* Problem Noted Date Resolved Date Abnormal finding on echocardiogram 08/27/2018 10/12/2020 Overview: Thickened ventricular septum on echo from 2015 Heart murmur 08/27/2018 05/30/2019 Other and unspecified angina pectoris 07/15/2014 10/12/2020 documented as of this encounter (statuses as of 12/13/2021) [facility] History of Past illness Narrative* Problem Noted Date Resolved Date Abnormal finding on echocardiogram 08/27/2018 10/12/2020 Overview: Thickened ventricular septum on echo from 2015 Heart murmur 08/27/2018 05/30/2019 Other and unspecified angina pectoris 07/15/2014 10/12/2020 documented as of this encounter (statuses as of 12/16/2021) [facility] History of Past illness Narrative* Problem Noted Date Resolved Date Abnormal finding on echocardiogram 08/27/2018 10/12/2020 Overview: Thickened ventricular septum on echo from 2015 Heart murmur 08/27/2018 05/30/2019 Other and unspecified angina pectoris 07/15/2014 10/12/2020 documented as of this encounter (statuses as of 12/19/2021) [facility] History of Past illness Narrative* Problem Noted Date Resolved Date Abnormal finding on echocardiogram 08/27/2018 10/12/2020 Overview: Thickened ventricular septum on echo from 2015 Heart murmur 08/27/2018 05/30/2019 Other and unspecified angina pectoris 07/15/2014 10/12/2020 documented as of this encounter (statuses as of 12/29/2021) [facility] History of Past illness Narrative* Problem Noted Date Resolved Date Abnormal finding on echocardiogram 08/27/2018 10/12/2020 Overview: Thickened ventricular septum on echo from 2015 Heart murmur 08/27/2018 05/30/2019 Other and unspecified angina pectoris 07/15/2014 10/12/2020 documented as of this encounter (statuses as of 01/03/2022) [facility] History of Past illness Narrative* Problem Noted Date Resolved Date Abnormal finding on echocardiogram 08/27/2018 10/12/2020 Overview: Thickened ventricular septum on echo from 2015 Heart murmur 08/27/2018 05/30/2019 Other and unspecified angina pectoris 07/15/2014 10/12/2020 documented as of this encounter (statuses as of 01/03/2022) [facility] History of Past illness Narrative* Problem Noted Date Resolved Date Abnormal finding on echocardiogram 08/27/2018 10/12/2020 Overview: Thickened ventricular septum on echo from 2015 Heart murmur 08/27/2018 05/30/2019 Other and unspecified angina pectoris 07/15/2014 10/12/2020 documented as of this encounter (statuses as of 01/04/2022) [address]-2019 History of Past illness Narrative* Problem Noted Date Resolved Date Abnormal finding on echocardiogram 08/27/2018 10/12/2020 Overview: Thickened ventricular septum on echo from 2015 Heart murmur 08/27/2018 05/30/2019 Other and unspecified angina pectoris 07/15/2014 10/12/2020 documented as of this encounter (statuses as of 01/16/2022) [facility] History of Past illness Narrative* Problem Noted Date Resolved Date Abnormal finding on echocardiogram 08/27/2018 10/12/2020 Overview: Thickened ventricular septum on echo from 2015 Heart murmur 08/27/2018 05/30/2019 Other and unspecified angina pectoris 07/15/2014 10/12/2020 documented as of this encounter (statuses as of 02/08/2022) [facility] History of Past illness Narrative* Problem Noted Date Resolved Date Abnormal finding on echocardiogram 08/27/2018 10/12/2020 Overview: Thickened ventricular septum on echo from 2015 Heart murmur 08/27/2018 05/30/2019 Other and unspecified angina pectoris 07/15/2014 10/12/2020 documented as of this encounter (statuses as of 03/07/2022) [facility] History of Past illness Narrative* Problem Noted Date Resolved Date Abnormal finding on echocardiogram 08/27/2018 10/12/2020 Overview: Thickened ventricular septum on echo from 2015 Heart murmur 08/27/2018 05/30/2019 Other and unspecified angina pectoris 07/15/2014 10/12/2020 documented as of this encounter (statuses as of 03/13/2022) [facility] History of Past illness Narrative* Problem Noted Date Resolved Date Abnormal finding on echocardiogram 08/27/2018 10/12/2020 Overview: Thickened ventricular septum on echo from 2015 Heart murmur 08/27/2018 05/30/2019 Other and unspecified angina pectoris 07/15/2014 10/12/2020 documented as of this encounter (statuses as of 03/15/2022) [facility] History of Past illness Narrative* Problem Noted Date Resolved Date Abnormal finding on echocardiogram 08/27/2018 10/12/2020 Overview: Thickened ventricular septum on echo from 2015 Heart murmur 08/27/2018 05/30/2019 Other and unspecified angina pectoris 07/15/2014 10/12/2020 documented as of this encounter (statuses as of 04/07/2022) [facility] History of Past illness Narrative* Problem Noted Date Resolved Date Abnormal finding on echocardiogram 08/27/2018 10/12/2020 Overview: Thickened ventricular septum on echo from 2015 Heart murmur 08/27/2018 05/30/2019 Other and unspecified angina pectoris 07/15/2014 10/12/2020 documented as of this encounter (statuses as of 05/05/2022) [facility] History of Past illness Narrative* Problem Noted Date Resolved Date Abnormal finding on echocardiogram 08/27/2018 10/12/2020 Overview: Thickened ventricular septum on echo from 2015 Heart murmur 08/27/2018 05/30/2019 Other and unspecified angina pectoris 07/15/2014 10/12/2020 documented as of this encounter (statuses as of 05/05/2022) [facility] History of Past illness Narrative* Problem Noted Date Resolved Date Abnormal finding on echocardiogram 08/27/2018 10/12/2020 Overview: Thickened ventricular septum on echo from 2015 Heart murmur 08/27/2018 05/30/2019 Other and unspecified angina pectoris 07/15/2014 10/12/2020 documented as of this encounter (statuses as of 05/05/2022) [facility] History of Past illness Narrative* Problem Noted Date Resolved Date Abnormal finding on echocardiogram 08/27/2018 10/12/2020 Overview: Thickened ventricular septum on echo from 2015 Heart murmur 08/27/2018 05/30/2019 Other and unspecified angina pectoris 07/15/2014 10/12/2020 documented as of this encounter (statuses as of 05/17/2022) [facility] History of Past illness Narrative* Problem Noted Date Resolved Date Abnormal finding on echocardiogram 08/27/2018 10/12/2020 Overview: Thickened ventricular septum on echo from 2015 Heart murmur 08/27/2018 05/30/2019 Other and unspecified angina pectoris 07/15/2014 10/12/2020 documented as of this encounter (statuses as of 05/17/2022) [facility] History of Past illness Narrative* Problem Noted Date Resolved Date Abnormal finding on echocardiogram 08/27/2018 10/12/2020 Overview: Thickened ventricular septum on echo from 2015 Heart murmur 08/27/2018 05/30/2019 Other and unspecified angina pectoris 07/15/2014 10/12/2020 documented as of this encounter (statuses as of 05/18/2022) [facility] History of Past illness Narrative* Problem Noted Date Resolved Date Abnormal finding on echocardiogram 08/27/2018 10/12/2020 Overview: Thickened ventricular septum on echo from 2015 Heart murmur 08/27/2018 05/30/2019 Other and unspecified angina pectoris 07/15/2014 10/12/2020 documented as of this encounter (statuses as of 06/29/2022) [facility] History of Past illness Narrative* Problem Noted Date Resolved Date Abnormal finding on echocardiogram 08/27/2018 10/12/2020 Overview: Thickened ventricular septum on echo from 2015 Heart murmur 08/27/2018 05/30/2019 Other and unspecified angina pectoris 07/15/2014 10/12/2020 documented as of this encounter (statuses as of 07/03/2022) [facility] History of Past illness Narrative* Problem Noted Date Resolved Date Abnormal finding on echocardiogram 08/27/2018 10/12/2020 Overview: Thickened ventricular septum on echo from 2015 Heart murmur 08/27/2018 05/30/2019 Other and unspecified angina pectoris 07/15/2014 10/12/2020 documented as of this encounter (statuses as of 07/04/2022) [facility] History of Past illness Narrative* Problem Noted Date Resolved Date Abnormal finding on echocardiogram 08/27/2018 10/12/2020 Overview: Thickened ventricular septum on echo from 2015 Heart murmur 08/27/2018 05/30/2019 Other and unspecified angina pectoris 07/15/2014 10/12/2020 documented as of this encounter (statuses as of 07/06/2022) [facility] History of Past illness Narrative* Problem Noted Date Resolved Date Abnormal finding on echocardiogram 08/27/2018 10/12/2020 Overview: Thickened ventricular septum on echo from 2015 Heart murmur 08/27/2018 05/30/2019 Other and unspecified angina pectoris 07/15/2014 10/12/2020 documented as of this encounter (statuses as of 07/07/2022) [facility] History of Past illness Narrative* Problem Noted Date Resolved Date Abnormal finding on echocardiogram 08/27/2018 10/12/2020 Overview: Thickened ventricular septum on echo from 2015 Heart murmur 08/27/2018 05/30/2019 Other and unspecified angina pectoris 07/15/2014 10/12/2020 documented as of this encounter (statuses as of 07/07/2022) [facility] History of Past illness Narrative* Problem Noted Date Resolved Date Abnormal finding on echocardiogram 08/27/2018 10/12/2020 Overview: Thickened ventricular septum on echo from 2015 Heart murmur 08/27/2018 05/30/2019 Other and unspecified angina pectoris 07/15/2014 10/12/2020 documented as of this encounter (statuses as of 07/10/2022) [facility] History of Past illness Narrative* Problem Noted Date Resolved Date Abnormal finding on echocardiogram 08/27/2018 10/12/2020 Overview: Thickened ventricular septum on echo from 2015 Heart murmur 08/27/2018 05/30/2019 Other and unspecified angina pectoris 07/15/2014 10/12/2020 documented as of this encounter (statuses as of 07/11/2022) [facility] History of Past illness Narrative* Problem Noted Date Resolved Date Abnormal finding on echocardiogram 08/27/2018 10/12/2020 Overview: Thickened ventricular septum on echo from 2015 Heart murmur 08/27/2018 05/30/2019 Other and unspecified angina pectoris 07/15/2014 10/12/2020 documented as of this encounter (statuses as of 07/21/2022) [facility] History of Past illness Narrative* Problem Noted Date Resolved Date Abnormal finding on echocardiogram 08/27/2018 10/12/2020 Overview: Thickened ventricular septum on echo from 2015 Heart murmur 08/27/2018 05/30/2019 Other and unspecified angina pectoris 07/15/2014 10/12/2020 documented as of this encounter (statuses as of 08/01/2022) [facility] History of Past illness Narrative* Problem Noted Date Resolved Date Abnormal finding on echocardiogram 08/27/2018 10/12/2020 Overview: Thickened ventricular septum on echo from 2015 Heart murmur 08/27/2018 05/30/2019 Other and unspecified angina pectoris 07/15/2014 10/12/2020 documented as of this encounter (statuses as of 08/03/2022) [facility] History of Past illness Narrative* Problem Noted Date Resolved Date Abnormal finding on echocardiogram 08/27/2018 10/12/2020 Overview: Thickened ventricular septum on echo from 2015 Heart murmur 08/27/2018 05/30/2019 Other and unspecified angina pectoris 07/15/2014 10/12/2020 documented as of this encounter (statuses as of 08/03/2022) [facility] History of Past illness Narrative* Problem Noted Date Resolved Date Abnormal finding on echocardiogram 08/27/2018 10/12/2020 Overview: Thickened ventricular septum on echo from 2015 Heart murmur 08/27/2018 05/30/2019 Other and unspecified angina pectoris 07/15/2014 10/12/2020 documented as of this encounter (statuses as of 08/28/2022) [facility] History of Past illness Narrative* Problem Noted Date Resolved Date Abnormal finding on echocardiogram 08/27/2018 10/12/2020 Overview: Thickened ventricular septum on echo from 2015 Heart murmur 08/27/2018 05/30/2019 Other and unspecified angina pectoris 07/15/2014 10/12/2020 documented as of this encounter (statuses as of 09/04/2022) [facility] History of Past illness Narrative* Problem Noted Date Resolved Date Abnormal finding on echocardiogram 08/27/2018 10/12/2020 Overview: Thickened ventricular septum on echo from 2015 Heart murmur 08/27/2018 05/30/2019 Other and unspecified angina pectoris 07/15/2014 10/12/2020 documented as of this encounter (statuses as of 09/22/2022) [facility] History of Past illness Narrative* Problem Noted Date Diagnosed Date Resolved Date Abnormal finding on echocardiogram 08/27/2018 10/12/2020 Overview: Thickened ventricular septum on echo from 2015 Heart murmur 08/27/2018 05/30/2019 Other and unspecified angina pectoris 07/15/2014 10/12/2020 documented as of this encounter (statuses as of 11/18/2022) [facility] History of Past illness Narrative* Problem Noted Date Diagnosed Date Resolved Date Abnormal finding on echocardiogram 08/27/2018 10/12/2020 Overview: Thickened ventricular septum on echo from 2015 Heart murmur 08/27/2018 05/30/2019 Other and unspecified angina pectoris 07/15/2014 10/12/2020 documented as of this encounter (statuses as of 11/21/2022) [facility] History of Past illness Narrative* Problem Noted Date Diagnosed Date Resolved Date Abnormal finding on echocardiogram 08/27/2018 10/12/2020 Overview: Thickened ventricular septum on echo from 2015 Heart murmur 08/27/2018 05/30/2019 Other and unspecified angina pectoris 07/15/2014 10/12/2020 documented as of this encounter (statuses as of 12/27/2022) [facility] History of Past illness Narrative* Problem Noted Date Diagnosed Date Resolved Date Abnormal finding on echocardiogram 08/27/2018 10/12/2020 Overview: Thickened ventricular septum on echo from 2015 Heart murmur 08/27/2018 05/30/2019 Other and unspecified angina pectoris 07/15/2014 10/12/2020 documented as of this encounter (statuses as of 01/04/2023) [facility] History of Past illness Narrative* Problem Noted Date Diagnosed Date Resolved Date Abnormal finding on echocardiogram 08/27/2018 10/12/2020 Overview: Thickened ventricular septum on echo from 2015 Heart murmur 08/27/2018 05/30/2019 Other and unspecified angina pectoris 07/15/2014 10/12/2020 documented as of this encounter (statuses as of 01/16/2023) [facility] History of Past illness Narrative* Problem Noted Date Diagnosed Date Resolved Date Abnormal finding on echocardiogram 08/27/2018 10/12/2020 Overview: Thickened ventricular septum on echo from 2015 Heart murmur 08/27/2018 05/30/2019 Other and unspecified angina pectoris 07/15/2014 10/12/2020 documented as of this encounter (statuses as of 01/29/2023) [facility] History of Past illness Narrative* Problem Noted Date Diagnosed Date Resolved Date Abnormal finding on echocardiogram 08/27/2018 10/12/2020 Overview: Thickened ventricular septum on echo from 2015 Heart murmur 08/27/2018 05/30/2019 Other and unspecified angina pectoris 07/15/2014 10/12/2020 documented as of this encounter (statuses as of 02/02/2023) [facility] History of Past illness Narrative* Problem Noted Date Diagnosed Date Resolved Date Abnormal finding on echocardiogram 08/27/2018 10/12/2020 Overview: Thickened ventricular septum on echo from 2015 Heart murmur 08/27/2018 05/30/2019 Other and unspecified angina pectoris 07/15/2014 10/12/2020 documented as of this encounter (statuses as of 02/09/2023) [facility] History of Past illness Narrative* Problem Noted Date Diagnosed Date Resolved Date Abnormal finding on echocardiogram 08/27/2018 10/12/2020 Overview: Thickened ventricular septum on echo from 2015 Heart murmur 08/27/2018 05/30/2019 Other and unspecified angina pectoris 07/15/2014 10/12/2020 documented as of this encounter (statuses as of 02/24/2023) [facility] History of Past illness Narrative* Problem Noted Date Diagnosed Date Resolved Date Abnormal finding on echocardiogram 08/27/2018 10/12/2020 Overview: Thickened ventricular septum on echo from 2015 Heart murmur 08/27/2018 05/30/2019 Other and unspecified angina pectoris 07/15/2014 10/12/2020 documented as of this encounter (statuses as of 03/05/2023) [facility] History of Past illness Narrative* Problem Noted Date Diagnosed Date Resolved Date Abnormal finding on echocardiogram 08/27/2018 10/12/2020 Overview: Thickened ventricular septum on echo from 2015 Heart murmur 08/27/2018 05/30/2019 Other and unspecified angina pectoris 07/15/2014 10/12/2020 documented as of this encounter (statuses as of 03/19/2023) [facility] History of Past illness Narrative* Problem Noted Date Diagnosed Date Resolved Date Abnormal finding on echocardiogram 08/27/2018 10/12/2020 Overview: Thickened ventricular septum on echo from 2015 Heart murmur 08/27/2018 05/30/2019 Other and unspecified angina pectoris 07/15/2014 10/12/2020 documented as of this encounter (statuses as of 03/23/2023) [facility] History of Past illness Narrative* Problem Noted Date Diagnosed Date Resolved Date Abnormal finding on echocardiogram 08/27/2018 10/12/2020 Overview: Thickened ventricular septum on echo from 2015 Heart murmur 08/27/2018 05/30/2019 Other and unspecified angina pectoris 07/15/2014 10/12/2020 documented as of this encounter (statuses as of 03/27/2023) [facility] History of Past illness Narrative* Problem Noted Date Diagnosed Date Resolved Date Abnormal finding on echocardiogram 08/27/2018 10/12/2020 Overview: Thickened ventricular septum on echo from 2015 Heart murmur 08/27/2018 05/30/2019 Other and unspecified angina pectoris 07/15/2014 10/12/2020 documented as of this encounter (statuses as of 06/05/2023) [facility] History of Past illness Narrative* Problem Noted Date Diagnosed Date Resolved Date Abnormal finding on echocardiogram 08/27/2018 10/12/2020 Overview: Thickened ventricular septum on echo from 2015 Heart murmur 08/27/2018 05/30/2019 Other and unspecified angina pectoris 07/15/2014 10/12/2020 documented as of this encounter (statuses as of 06/28/2023) [facility] History of Past illness Narrative* Problem Noted Date Diagnosed Date Resolved Date Abnormal finding on echocardiogram 08/27/2018 10/12/2020 Overview: Thickened ventricular septum on echo from 2015 Heart murmur 08/27/2018 05/30/2019 Other and unspecified angina pectoris 07/15/2014 10/12/2020 documented as of this encounter (statuses as of 07/02/2023) [facility] History of Past illness Narrative* Problem Noted Date Diagnosed Date Resolved Date Abnormal finding on echocardiogram 08/27/2018 10/12/2020 Overview: Thickened ventricular septum on echo from 2015 Heart murmur 08/27/2018 05/30/2019 Other and unspecified angina pectoris 07/15/2014 10/12/2020 documented as of this encounter (statuses as of 07/05/2023) [facility] History of Past illness Narrative* Problem Noted Date Diagnosed Date Resolved Date Abnormal finding on echocardiogram 08/27/2018 10/12/2020 Overview: Thickened ventricular septum on echo from 2015 Heart murmur 08/27/2018 05/30/2019 Other and unspecified angina pectoris 07/15/2014 10/12/2020 documented as of this encounter (statuses as of 07/10/2023) [facility] History of Past illness Narrative* Problem Noted Date Diagnosed Date Resolved Date Abnormal finding on echocardiogram 08/27/2018 10/12/2020 Overview: Thickened ventricular septum on echo from 2015 Heart murmur 08/27/2018 05/30/2019 Other and unspecified angina pectoris 07/15/2014 10/12/2020 documented as of this encounter (statuses as of 07/13/2023) [facility] History of Past illness Narrative* Problem Noted Date Diagnosed Date Resolved Date Abnormal finding on echocardiogram 08/27/2018 10/12/2020 Overview: Thickened ventricular septum on echo from 2015 Heart murmur 08/27/2018 05/30/2019 Other and unspecified angina pectoris 07/15/2014 10/12/2020 documented as of this encounter (statuses as of 07/17/2023) [facility] History of Past illness Narrative* Problem Noted Date Diagnosed Date Resolved Date Abnormal finding on echocardiogram 08/27/2018 10/12/2020 Overview: Thickened ventricular septum on echo from 2015 Heart murmur 08/27/2018 05/30/2019 Other and unspecified angina pectoris 07/15/2014 10/12/2020 documented as of this encounter (statuses as of 08/07/2023) [facility] Essential hypertension Unspecified essential hypertension [facility] Diagnosis Uncontrolled type 2 diabetes mellitus with hyperglycemia (HCC)- Primary Essential hypertension Unspecified essential hypertension [facility] Diagnosis Screening for colon cancer- Primary Special screening for malignant neoplasms, colon [facility] Diagnosis Uncontrolled type 2 diabetes mellitus with hyperglycemia (HCC)- Primary [facility] Diagnosis Medicare annual wellness visit, initial- Primary Routine general medical examination at a health care facility Type 2 diabetes mellitus without complication, with long-term current use of insulin (HCC) Coronary artery disease involving [place] coronary artery of [place] heart without angina pectoris Primary hypertension Unspecified essential hypertension Mixed hyperlipidemia Obesity, Class I, BMI 30-34.9 Obesity, unspecified DDD (degenerative disc disease), lumbar Degeneration of lumbar or lumbosacral intervertebral disc Lumbar radiculopathy Thoracic or lumbosacral neuritis or radiculitis, unspecified Other chronic pain Benign prostatic hyperplasia with lower urinary tract symptoms, symptom details unspecified Screening for colon cancer Special screening for malignant neoplasms, colon [facility] Diagnosis Uncontrolled type 2 diabetes mellitus with hyperglycemia (HCC)- Primary [facility] Diagnosis Type 2 diabetes mellitus without complication, with long-term current use of insulin (HCC)- Primary Essential hypertension Unspecified essential hypertension Class 1 obesity with serious comorbidity and body mass index (BMI) of 31.0 to 31.9 in adult, unspecified obesity type [facility] Diagnosis Coronary artery disease involving [place] coronary artery of [place] heart without angina pectoris- Primary HERNANDEZ (dyspnea on exertion) Other dyspnea and respiratory abnormality Non-rheumatic aortic stenosis Aortic valve disorders Essential hypertension Unspecified essential hypertension Mixed hyperlipidemia [facility] Diagnosis Mixed hyperlipidemia [facility] Diagnosis Coronary artery disease involving [place] coronary artery of [place] heart without angina pectoris Essential hypertension Unspecified essential hypertension Mixed hyperlipidemia Non-rheumatic aortic stenosis Aortic valve disorders HERNANDEZ (dyspnea on exertion) Other dyspnea and respiratory [facility] Hypokalemia- Primary Hypopotassemia [facility] Diagnosis Type 2 diabetes mellitus without complication, with long-term current use of insulin (HCC)- Primary Essential hypertension Unspecified essential hypertension [facility] Diagnosis Type 2 diabetes mellitus with both eyes affected 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, with long-term current use of insulin (HCC) Hyperlipidemia Other and unspecified hyperlipidemia [facility] Diagnosis Type 2 diabetes mellitus with both eyes affected 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, with long-term current use of insulin (HCC)- Primary Coronary artery disease involving [place] coronary artery of [place] heart without angina pectoris Primary hypertension Unspecified essential hypertension Mixed hyperlipidemia DDD (degenerative disc disease), lumbar Degeneration of lumbar or lumbosacral intervertebral disc Lumbar spondylosis Lumbosacral spondylosis without myelopathy Obesity, Class I, BMI 30-34.9 Obesity, unspecified [facility] Diagnosis Coronary artery disease involving [place] coronary artery of [place] heart without angina pectoris- Primary HERNANDEZ (dyspnea on exertion) Other dyspnea and respiratory abnormality Essential hypertension Unspecified essential hypertension Mixed hyperlipidemia Non-rheumatic aortic stenosis Aortic valve disorders AV block, 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 [facility] Diagnosis Type 2 diabetes mellitus without complication, with long-term current use of insulin (HCC)- Primary Stable angina (HCC) Other and unspecified angina pectoris [facility] Diagnosis Dog bite, initial encounter- Primary Type 2 diabetes mellitus with both eyes affected 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, with long-term current use of insulin (HCC) Stable angina (HCC) Other and unspecified angina pectoris [facility] Diagnosis Coronary artery disease involving [place] coronary artery of [place] heart without angina pectoris HERNANDEZ (dyspnea on exertion) Other dyspnea and respiratory abnormality Essential hypertension Unspecified essential hypertension Mixed hyperlipidemia Non-rheumatic aortic stenosis Aortic valve disorders AV block, 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 Stable angina (HCC) Other and unspecified angina pectoris [facility] Diagnosis Type 2 diabetes mellitus with both eyes affected 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, with long-term current use of insulin (HCC)- Primary Essential hypertension Unspecified essential hypertension Obesity, Class I, BMI 30-34.9 Obesity, unspecified Stable angina (HCC) Other and unspecified angina pectoris [facility] Diagnosis Coronary artery disease involving [place] coronary artery of [place] heart without angina pectoris- Primary Essential hypertension Unspecified essential hypertension Status post insertion of drug [place] coronary artery stent Postsurgical percutaneous transluminal coronary angioplasty status History of bradycardia Other specified cardiac dysrhythmias Mixed hyperlipidemia Non-rheumatic aortic stenosis Aortic valve disorders History of tobacco use Personal history of tobacco use, presenting hazards to health Diastolic dysfunction Heart disease, unspecified History of sleep apnea Personal history of other specified diseases [facility] Diagnosis Type 2 diabetes mellitus without complication, with long-term current use of insulin (HCC)- [facility] Diagnosis Coronary artery disease involving [place] coronary artery of [place] heart without angina pectoris- Primary Status post insertion of drug eluting coronary artery stent Postsurgical percutaneous transluminal coronary angioplasty status [facility] noteNo assessment information availableWMer[facility] Work Phone: Evaluation note* Diagnosis Type 2 diabetes mellitus without complication, with long-term current use of insulin ([facility] Diagnosis Mixed hyperlipidemia documented in this encounter [facility] note* Diagnosis Type 2 diabetes mellitus with both eyes affected 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, with long-term current use of insulin (HCC)- Primary Essential hypertension Unspecified essential hypertension Obesity, Class I, BMI 30-34.9 Obesity, unspecified [facility] Diagnosis Coronary artery disease involving [place] coronary artery of [place] heart without angina pectoris- Primary Nonrheumatic aortic valve stenosis Aortic valve disorders Diastolic dysfunction Heart disease, unspecified Bradycardia Other specified cardiac dysrhythmias Essential hypertension Unspecified essential hypertension Mixed hyperlipidemia History of tobacco use Personal history of tobacco use, presenting hazards to health Sleep apnea, unspecified type [facility]* Diagnosis Type 2 diabetes mellitus without complication, with long-term current use of insulin (HCC)- Primary Type 2 diabetes mellitus with both eyes affected 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, with long-term current use of insulin ([facility]) Medication management Encounter for long-term (current) use of other medications [facility] Diagnosis On continuous oral anticoagulation- Primary Long-term (current) use of anticoagulants Aortic valve stenosis, etiology of cardiac valve disease unspecified Positive colorectal cancer screening using Cologuard test [facility] Diagnosis Type 2 diabetes mellitus without complication, with long-term current use of insulin ([facility])- Primary Type 2 diabetes mellitus with both eyes affected 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, with long-term current use of insulin ([facility]) [facility] Diagnosis Primary hypertension- Primary Unspecified essential hypertension Non-rheumatic aortic stenosis Aortic valve disorders Coronary artery disease involving [place] coronary artery of [place] heart without angina pectoris [facility] Diagnosis Dyspnea on exertion- Primary Other dyspnea and respiratory abnormality Encounter for preprocedural cardiovascular examination Pre-operative cardiovascular examination [facility] Diagnosis Nonrheumatic aortic (valve) stenosis HOCM (hypertrophic obstructive cardiomyopathy) (HCC) Hypertrophic obstructive cardiomyopathy [facility] Diagnosis HOCM (hypertrophic obstructive cardiomyopathy) (HCC)- Primary Hypertrophic obstructive cardiomyopathy Nonrheumatic aortic (valve) stenosis [facility] Diagnosis HOCM (hypertrophic obstructive cardiomyopathy) (HCC)- Primary Hypertrophic obstructive cardiomyopathy Aortic valve stenosis, etiology of cardiac valve disease unspecified Hyperlipidemia, unspecified hyperlipidemia type Hypertension, unspecified type Controlled type 2 diabetes mellitus without complication, unspecified whether half-way insulin use ([facility]) SOB (shortness of breath) Shortness of breath Chest pain, unspecified type Pre-operative cardiovascular examination HOCM (hypertrophic obstructive cardiomyopathy) (HCC) Hypertrophic obstructive cardiomyopathy Aortic valve stenosis, etiology of cardiac valve disease unspecified Hyperlipidemia, unspecified hyperlipidemia type Hypertension, unspecified type Controlled type 2 diabetes mellitus without complication, 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 ([facility]) SOB (shortness of breath) Shortness of breath Chest pain, unspecified type Pre-operative cardiovascular examination [facility] Diagnosis HOCM (hypertrophic obstructive cardiomyopathy) (HCC)- Primary Hypertrophic obstructive cardiomyopathy Nonrheumatic aortic (valve) stenosis Coronary artery disease of [place] artery of [place] heart with stable angina pectoris (HCC) Primary hypertension Unspecified essential hypertension Mixed hyperlipidemia HOCM (hypertrophic obstructive cardiomyopathy) (HCC) Hypertrophic obstructive cardiomyopathy Aortic valve stenosis, etiology of cardiac valve disease unspecified Hyperlipidemia, unspecified hyperlipidemia type Hypertension, unspecified type Controlled type 2 diabetes mellitus without complication, unspecified whether half-way insulin use (HCC) SOB (shortness of breath) Shortness of breath Chest pain, unspecified type Pre-operative cardiovascular examination documented in this encounter [facility] note* Diagnosis Coronary artery disease involving [place] coronary artery of [place] heart without angina pectoris HOCM (hypertrophic obstructive cardiomyopathy) (HCC) Hypertrophic obstructive cardiomyopathy Aortic valve stenosis, etiology of cardiac valve disease unspecified Hyperlipidemia, unspecified hyperlipidemia type Hypertension, unspecified type Controlled type 2 diabetes mellitus without complication, 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) SOB (shortness of breath) Shortness of breath Chest pain, unspecified type Pre-operative cardiovascular examination documented in this encounter [facility] note* Diagnosis Pre-op testing- Primary Preoperative examination, unspecified HOCM (hypertrophic obstructive cardiomyopathy) (HCC) Hypertrophic obstructive cardiomyopathy Aortic valve stenosis, etiology of cardiac valve disease unspecified Hyperlipidemia, unspecified hyperlipidemia type Hypertension, unspecified type Controlled type 2 diabetes mellitus without complication, unspecified whether half-way insulin use (HCC) SOB (shortness of breath) Shortness of breath Chest pain, unspecified type Pre-operative cardiovascular examination documented in this encounter [facility] note* Diagnosis Encounter for preoperative anesthesiology assessment for cardiac surgery- Primary Type 2 diabetes mellitus with both eyes affected 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, with long-term current use of insulin (HCC) HOCM (hypertrophic obstructive cardiomyopathy) (HCC) Hypertrophic obstructive cardiomyopathy Aortic valve stenosis, etiology of cardiac valve disease unspecified Hyperlipidemia, unspecified hyperlipidemia type Hypertension, unspecified type Controlled type 2 diabetes mellitus without complication, unspecified whether half-way insulin use (HCC) SOB (shortness of breath) Shortness of breath Chest pain, unspecified type Pre-operative cardiovascular examination documented in this encounter [facility] note* Diagnosis Nonrheumatic aortic valve stenosis- Primary Aortic valve disorders Type 2 diabetes mellitus with both eyes affected 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, with long-term current use of insulin (HCC) HOCM (hypertrophic obstructive cardiomyopathy) (HCC) Hypertrophic obstructive cardiomyopathy Aortic valve stenosis, etiology of cardiac valve disease unspecified Hyperlipidemia, unspecified hyperlipidemia type Hypertension, unspecified type Controlled type 2 diabetes mellitus without complication, unspecified whether half-way insulin use (HCC) SOB (shortness of breath) Shortness of breath Chest pain, unspecified type Pre-operative cardiovascular examination [facility] Diagnosis HOCM (hypertrophic obstructive cardiomyopathy) (HCC) Hypertrophic obstructive cardiomyopathy Aortic valve stenosis, etiology of cardiac valve disease unspecified Hyperlipidemia, unspecified hyperlipidemia type Hypertension, unspecified type Controlled type 2 diabetes mellitus without complication, 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) SOB (shortness of breath) Shortness of breath Chest pain, unspecified type Pre-operative cardiovascular examination [facility] Diagnosis HOCM (hypertrophic obstructive cardiomyopathy) (HCC) Hypertrophic obstructive cardiomyopathy Aortic valve stenosis, etiology of cardiac valve disease unspecified Hyperlipidemia, unspecified hyperlipidemia type Hypertension, unspecified type Controlled type 2 diabetes mellitus without complication, 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) SOB (shortness of breath) Shortness of breath Chest pain, unspecified type Pre-operative cardiovascular examination [facility]* Diagnosis Nonrheumatic aortic (valve) stenosis- Primary S/P aortic valve replacement Heart valve replaced by other means Coronary artery disease involving [place] coronary artery of [place] heart without angina pectoris Stable angina (HCC) Other and unspecified angina pectoris HOCM (hypertrophic obstructive cardiomyopathy) (HCC) Hypertrophic obstructive cardiomyopathy Type 2 diabetes mellitus without complication, with long-term current use of insulin (HCC) Type 2 diabetes mellitus with both eyes affected 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, with long-term current use of insulin (HCC) [facility]* Diagnosis Type 2 diabetes mellitus without complication, with long-term current use of insulin (HCC)- Primary Type 2 diabetes mellitus with both eyes affected 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, with long-term current use of insulin ([facility]) [facility]* Diagnosis HOCM (hypertrophic obstructive cardiomyopathy) (HCC)- Primary Hypertrophic obstructive cardiomyopathy S/P myomectomy Other postprocedural status S/P AVR Heart valve replaced by other means Nonrheumatic aortic (valve) stenosis Coronary artery disease involving [place] coronary artery of [place] heart without angina pectoris Primary hypertension Unspecified essential hypertension Mixed hyperlipidemia Status post insertion of drug eluting coronary artery stent Postsurgical percutaneous transluminal coronary angioplasty [facility] Type 2 diabetes mellitus with both eyes affected 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, with long-term current use of insulin ([facility] Diagnosis Type 2 diabetes mellitus without complication, with long-term current use of insulin ([facility])- Primary Primary hypertension Unspecified essential hypertension [facility] Diagnosis Nonrheumatic aortic (valve) stenosis HOCM (hypertrophic obstructive cardiomyopathy) (HCC) Hypertrophic obstructive cardiomyopathy Primary hypertension Unspecified essential hypertension [facility] Primary hypertension- Primary Unspecified essential hypertension Nonrheumatic aortic (valve) stenosis HOCM (hypertrophic obstructive cardiomyopathy) (HCC) Hypertrophic obstructive cardiomyopathy [facility]* Diagnosis Diabetes mellitus type 1, controlled, without complications (HCC) Type I (juvenile type) diabetes mellitus without mention of complication, not stated as uncontrolled Hyperlipidemia Other and unspecified hyperlipidemia [facility]* Diagnosis [place] headache- Primary Headache Intractable episodic cluster headache Episodic cluster headache [facility]* Diagnosis Hypertension, unspecified type- Primary [facility]* Diagnosis Type 2 diabetes mellitus with both eyes affected 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, with long-term current use of insulin ([facility])- Primary Essential hypertension Unspecified essential hypertension Mixed hyperlipidemia Coronary artery disease involving [place] coronary artery of [place] heart without angina pectoris HOCM (hypertrophic obstructive cardiomyopathy) (HCC) Hypertrophic obstructive cardiomyopathy S/P AVR Heart valve replaced by other means Nonrheumatic aortic (valve) stenosis Intractable episodic cluster headache Episodic cluster headache Screening for depression Encounter for screening examination for other mental health and behavioral disorders [facility] Diagnosis Rotator cuff syndrome of left shoulder- Primary Disorders of bursae and tendons in shoulder region, unspecified Chronic left shoulder pain Pain in joint, shoulder region Rotator cuff syndrome of left shoulder Disorders of bursae and tendons in shoulder region, unspecified Mixed hyperlipidemia [facility] Diagnosis Rotator cuff syndrome of left shoulder- Primary Disorders of bursae and tendons in shoulder region, unspecified Chronic left shoulder pain Pain in joint, shoulder region Rotator cuff syndrome of left shoulder Disorders of bursae and tendons in shoulder region, unspecified [place] headache Headache [facility] Diagnosis Rotator cuff syndrome of left shoulder- Primary Disorders of bursae and tendons in shoulder region, unspecified Chronic left shoulder pain Pain in joint, shoulder region Rotator cuff syndrome of left shoulder Disorders of bursae and tendons in shoulder region, unspecified Episodic cluster headache, not intractable- Primary Episodic cluster headache SOB (shortness of breath) Shortness of breath Essential hypertension Unspecified essential hypertension Coronary artery disease involving [place] coronary artery of [place] heart without angina pectoris HOCM (hypertrophic obstructive cardiomyopathy) ([facility]) Hypertrophic obstructive cardiomyopathy S/P AVR Heart valve replaced by other means Primary hypertension Unspecified essential hypertension [facility] Diagnosis Rotator cuff syndrome of left shoulder- Primary Disorders of bursae and tendons in shoulder region, unspecified Chronic left shoulder pain Pain in joint, shoulder region Rotator cuff syndrome of left shoulder Disorders of bursae and tendons in shoulder region, unspecified Cardiac arrhythmia, unspecified cardiac arrhythmia type- Primary [place] headache Headache Intractable episodic cluster headache Episodic cluster headache [facility] Diagnosis Rotator cuff syndrome of left shoulder- Primary Disorders of bursae and tendons in shoulder region, unspecified Chronic left shoulder pain Pain in joint, shoulder region Rotator cuff syndrome of left shoulder Disorders of bursae and tendons in shoulder region, unspecified [place] headache Headache [facility] Diagnosis Rotator cuff syndrome of left shoulder- Primary Disorders of bursae and tendons in shoulder region, unspecified Chronic left shoulder pain Pain in joint, shoulder region Rotator cuff syndrome of left shoulder Disorders of bursae and tendons in shoulder region, unspecified Hypertension, unspecified type- Primary Type 2 diabetes mellitus without complication, with long-term current use of insulin ([facility]) [facility] Diagnosis Rotator cuff syndrome of left shoulder- Primary Disorders of bursae and tendons in shoulder region, unspecified Chronic left shoulder pain Pain in joint, shoulder region Rotator cuff syndrome of left shoulder Disorders of bursae and tendons in shoulder region, unspecified SOB (shortness of breath) Shortness of breath [facility] Diagnosis Rotator cuff syndrome of left shoulder- Primary Disorders of bursae and tendons in shoulder region, unspecified Chronic left shoulder pain Pain in joint, shoulder region Rotator cuff syndrome of left shoulder Disorders of bursae and tendons in shoulder region, unspecified Essential hypertension- Primary Unspecified essential hypertension Mixed hyperlipidemia Status post insertion of drug eluting coronary artery stent Postsurgical percutaneous transluminal coronary angioplasty status S/P AVR Heart valve replaced by other means Type 2 diabetes mellitus without complication, with long-term current use of insulin ([facility])- Primary Hypertension, unspecified type [facility] Diagnosis Rotator cuff syndrome of left shoulder- Primary Disorders of bursae and tendons in shoulder region, unspecified Chronic left shoulder pain Pain in joint, shoulder region Rotator cuff syndrome of left shoulder Disorders of bursae and tendons in shoulder region, unspecified Type 2 diabetes mellitus without complication, with long-term current use of insulin ([facility])- Primary [facility] Diagnosis Rotator cuff syndrome of left shoulder- Primary Disorders of bursae and tendons in shoulder region, unspecified Chronic left shoulder pain Pain in joint, shoulder region Rotator cuff syndrome of left shoulder Disorders of bursae and tendons in shoulder region, unspecified Type 2 diabetes mellitus with both eyes affected 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, with long-term current use of insulin ([facility]) [facility] Diagnosis Rotator cuff syndrome of left shoulder- Primary Disorders of bursae and tendons in shoulder region, unspecified Chronic left shoulder pain Pain in joint, shoulder region Rotator cuff syndrome of left shoulder Disorders of bursae and tendons in shoulder region, unspecified Primary hypertension Unspecified essential hypertension Nonrheumatic aortic (valve) stenosis HOCM (hypertrophic obstructive cardiomyopathy) ([facility]) Hypertrophic obstructive cardiomyopathy [facility] Diagnosis Rotator cuff syndrome of left shoulder- Primary Disorders of bursae and tendons in shoulder region, unspecified Chronic left shoulder pain Pain in joint, shoulder region Rotator cuff syndrome of left shoulder Disorders of bursae and tendons in shoulder region, unspecified Type 2 diabetes mellitus without complication, with long-term current use of insulin ([facility])- Primary [facility] Diagnosis Rotator cuff syndrome of left shoulder- Primary Disorders of bursae and tendons in shoulder region, unspecified Chronic left shoulder pain Pain in joint, shoulder region Rotator cuff syndrome of left shoulder Disorders of bursae and tendons in shoulder region, unspecified Type 2 diabetes mellitus with both eyes affected 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, with long-term current use of insulin (HCC) Coronary artery disease involving [place] coronary artery of [place] heart without angina pectoris Mixed hyperlipidemia [facility] Diagnosis Rotator cuff syndrome of left shoulder- Primary Disorders of bursae and tendons in shoulder region, unspecified Chronic left shoulder pain Pain in joint, shoulder region Rotator cuff syndrome of left shoulder Disorders of bursae and tendons in shoulder region, unspecified Type 2 diabetes mellitus with both eyes affected 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, with long-term current use of insulin (HCC) Mixed hyperlipidemia [facility] Diagnosis Rotator cuff syndrome of left shoulder- Primary Disorders of bursae and tendons in shoulder region, unspecified Chronic left shoulder pain Pain in joint, shoulder region Rotator cuff syndrome of left shoulder Disorders of bursae and tendons in shoulder region, unspecified Primary hypertension Unspecified essential hypertension Nonrheumatic aortic (valve) stenosis HOCM (hypertrophic obstructive cardiomyopathy) (HCC) Hypertrophic obstructive cardiomyopathy Coronary artery disease involving [place] coronary artery of [place] heart without angina pectoris [facility] Diagnosis Rotator cuff syndrome of left shoulder- Primary Disorders of bursae and tendons in shoulder region, unspecified Chronic left shoulder pain Pain in joint, shoulder region Rotator cuff syndrome of left shoulder Disorders of bursae and tendons in shoulder region, unspecified Type 2 diabetes mellitus with both eyes affected 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, with long-term current use of insulin (HCC)- Primary Screening for colon cancer Special screening for malignant neoplasms, colon Positive colorectal cancer screening using Cologuard test Essential hypertension Unspecified essential hypertension Mixed hyperlipidemia HOCM (hypertrophic obstructive cardiomyopathy) (HCC) Hypertrophic obstructive cardiomyopathy Coronary artery disease involving [place] coronary artery of [place] heart without angina pectoris Status post insertion of drug eluting coronary artery stent Postsurgical percutaneous transluminal coronary angioplasty status S/P myomectomy Other postprocedural status S/P AVR Heart valve replaced by other means Screening for prostate cancer Special screening for malignant neoplasm of prostate Benign prostatic hyperplasia with lower urinary tract symptoms, symptom details unspecified [facility] Rotator cuff syndrome of left shoulder- Primary Disorders of bursae and tendons in shoulder region, unspecified Chronic left shoulder pain Pain in joint, shoulder region Rotator cuff syndrome of left shoulder Disorders of bursae and tendons in shoulder region, unspecified Benign prostatic hyperplasia with lower urinary tract symptoms, symptom details unspecified- Primary Elevated PSA Elevated prostate specific antigen (PSA) [facility] Rotator cuff syndrome of left shoulder- Primary Disorders of bursae and tendons in shoulder region, unspecified Chronic left shoulder pain Pain in joint, shoulder region Rotator cuff syndrome of left shoulder Disorders of bursae and tendons in shoulder region, unspecified Type 2 diabetes mellitus with both eyes affected 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, with long-term current use of insulin (HCC) [facility] Diagnosis Rotator cuff syndrome of left shoulder- Primary Disorders of bursae and tendons in shoulder region, unspecified Chronic left shoulder pain Pain in joint, shoulder region Rotator cuff syndrome of left shoulder Disorders of bursae and tendons in shoulder region, unspecified Type 2 diabetes mellitus without complication, with long-term current use of insulin (HCC)- Primary [facility] Diagnosis Rotator cuff syndrome of left shoulder- Primary Disorders of bursae and tendons in shoulder region, unspecified Chronic left shoulder pain Pain in joint, shoulder region Rotator cuff syndrome of left shoulder Disorders of bursae and tendons in shoulder region, unspecified Screening for colon cancer Special screening for malignant neoplasms, colon Positive colorectal cancer screening using Cologuard test [facility] Diagnosis Rotator cuff syndrome of left shoulder- Primary Disorders of bursae and tendons in shoulder region, unspecified Chronic left shoulder pain Pain in joint, shoulder region Rotator cuff syndrome of left shoulder Disorders of bursae and tendons in shoulder region, unspecified Type 2 diabetes mellitus with both eyes affected 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, with long-term current use of insulin (HCC) [facility] Diagnosis Rotator cuff syndrome of left shoulder- Primary Disorders of bursae and tendons in shoulder region, unspecified Chronic left shoulder pain Pain in joint, shoulder region Rotator cuff syndrome of left shoulder Disorders of bursae and tendons in shoulder region, unspecified Benign prostatic hyperplasia with incomplete bladder emptying- Primary Elevated PSA Elevated prostate specific antigen (PSA) [facility] Diagnosis Rotator cuff syndrome of left shoulder- Primary Disorders of bursae and tendons in shoulder region, unspecified Chronic left shoulder pain Pain in joint, shoulder region Rotator cuff syndrome of left shoulder Disorders of bursae and tendons in shoulder region, unspecified Type 2 diabetes mellitus without complication, with long-term current use of insulin (HCC)- Primary [facility] Diagnosis Rotator cuff syndrome of left shoulder- Primary Disorders of bursae and tendons in shoulder region, unspecified Chronic left shoulder pain Pain in joint, shoulder region Rotator cuff syndrome of left shoulder Disorders of bursae and tendons in shoulder region, unspecified Essential hypertension- Primary Unspecified essential hypertension Mixed hyperlipidemia Nonrheumatic aortic (valve) stenosis Coronary artery disease involving [place] coronary artery of [place] heart without angina pectoris HOCM (hypertrophic obstructive cardiomyopathy) (HCC) Hypertrophic obstructive cardiomyopathy [facility] Diagnosis Rotator cuff syndrome of left shoulder- Primary Disorders of bursae and tendons in shoulder region, unspecified Chronic left shoulder pain Pain in joint, shoulder region Rotator cuff syndrome of left shoulder Disorders of bursae and tendons in shoulder region, unspecified Type 2 diabetes mellitus without complication, with long-term current use of insulin (HCC)- Primary [facility] Diagnosis Rotator cuff syndrome of left shoulder- Primary Disorders of bursae and tendons in shoulder region, unspecified Chronic left shoulder pain Pain in joint, shoulder region Rotator cuff syndrome of left shoulder Disorders of bursae and tendons in shoulder region, unspecified Type 2 diabetes mellitus without complication, with long-term current use of insulin (HCC)- Primary Primary hypertension Unspecified essential hypertension [facility] Diagnosis Rotator cuff syndrome of left shoulder- Primary Disorders of bursae and tendons in shoulder region, unspecified Chronic left shoulder pain Pain in joint, shoulder region Rotator cuff syndrome of left shoulder Disorders of bursae and tendons in shoulder region, unspecified Elevated PSA- Primary Elevated prostate specific antigen (PSA) Benign prostatic hyperplasia with incomplete bladder emptying Screening for genitourinary condition Screening for other and unspecified genitourinary condition [facility] Diagnosis Rotator cuff syndrome of left shoulder- Primary Disorders of bursae and tendons in shoulder region, unspecified Chronic left shoulder pain Pain in joint, shoulder region Rotator cuff syndrome of left shoulder Disorders of bursae and tendons in shoulder region, unspecified Encounter for Medicare annual wellness exam- Primary Routine general medical examination at a health care facility Type 2 diabetes mellitus with both eyes affected 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, with long-term current use of insulin (HCC) Essential hypertension Unspecified essential hypertension Mixed hyperlipidemia Coronary artery disease involving [place] coronary artery of [place] heart without angina pectoris Nonrheumatic aortic (valve) stenosis S/P AVR Heart valve replaced by other means HOCM (hypertrophic obstructive cardiomyopathy) (HCC) Hypertrophic obstructive cardiomyopathy S/P myomectomy Other postprocedural status Benign prostatic hyperplasia with lower urinary tract symptoms, symptom details unspecified Elevated PSA Elevated prostate specific antigen (PSA) Screening for depression Encounter for screening examination for other mental health and behavioral disorders [facility] Diagnosis Rotator cuff syndrome of left shoulder- Primary Disorders of bursae and tendons in shoulder region, unspecified Chronic left shoulder pain Pain in joint, shoulder region Rotator cuff syndrome of left shoulder Disorders of bursae and tendons in shoulder region, unspecified Type 2 diabetes mellitus without complication, with long-term current use of insulin ([facility])- Primary documented in this encounter [facility] for referral (narrative)* Diagnostic Procedure Only (Routine) - Authorized Specialty Diagnoses / Procedures Referred By Contact Referred To Contact MOLECULAR & FUNCTIONAL IMAGING Diagnoses Coronary artery disease involving [place] coronary artery of [place] heart without angina pectoris Essential hypertension Mixed hyperlipidemia Non-rheumatic aortic stenosis HERNANDEZ (dyspnea on exertion) Procedures NM CARDIAC PERF STRESS/PHARM MYOCARDIAL SPECT MULTIPLE STUDIES Burke Barron DO [address] [place] [address] Molecular & Functional Imaging [address] [place] [address] Referral ID Status Reason Start Date Expiration Date Visits Requested Visits Authorized [id number] Authorized Auto-Generat ed Referral 12/16/2021 01/15/2023 1 1 [facility] for referral (narrative)* Diagnostic Procedure Only (Routine) - Closed Specialty Diagnoses / Procedures Referred By Contact Referred To Contact MOLECULAR & FUNCTIONAL IMAGING Diagnoses Coronary artery disease involving [place] coronary artery of [place] heart without angina pectoris Essential hypertension Mixed hyperlipidemia Non-rheumatic aortic stenosis HERNANDEZ (dyspnea on exertion) Procedures NM CARDIAC PERF STRESS/PHARM MYOCARDIAL SPECT MULTIPLE STUDIES Burke Barron DO [address] [place] [address] Molecular [facility] Functional [facility] [address] [place] [address] Referral ID Status Reason Start Date Expiration Date V isits Requested Visits Authorized [id number] Closed Auto-Generate d Referral 12/16/2021 01/15/2023 1 1 [facility] for referral (narrative)* Outpatient Procedure (Routine) - Authorized Specialty Diagnoses / Procedures Referred By Contac t Referred To Contact [facility] Diagnoses Coronary artery disease involving [place] coronary artery of [place] heart without angina pectoris HERNANDEZ (dyspnea on exertion) Essential hypertension Mixed hyperlipidemia Non-rheumatic aortic stenosis AV block, 1st degree Procedures ECHO ECHO TTHRC R-T 2D W/WOM-MODE COMPL SPEC&COLR Burke Campbell, DO [address] [id number] [facility] [place] [id number] Referral ID Status Reason Start Date Expiration Date Visits Requested Visits Authorized [id number] Authorized Auto-Generat ed Referral 06/29/2022 06/29/2023 1 1 [facility] for referral (narrative)* Outpatient Procedure (Routine) - Closed Specialty Diagnoses / Procedures Referred By Contac t Referred To [facility] Diagnoses Coronary artery disease involving [place] coronary artery of [place] heart without angina pectoris HERNANDEZ (dyspnea on exertion) Essential hypertension Mixed hyperlipidemia Non-rheumatic aortic stenosis AV block, 1st degree Procedures ECHO ECHO TTHRC R-T 2D W/WOM-MODE COMPL SPEC&COLR Burke Campbell, DO [address] [place] [address] [facility] [address] [address] Referral ID Status Reason Start Date Expiration Date V isits Requested Visits Authorized [id number] Closed Patient Cleared - INN Insurance Found OON/Self Pay Override 06/29/2022 06/29/2023 1 1 [facility] for referral (narrative)* Outpatient Procedure (Routine) - Pending Review Specialty Diagnoses / Procedures Referred By Contac t Referred To Contact [facility] Diagnoses Nonrheumatic aortic valve stenosis Procedures ECHO ECHO TTHRC R-T 2D W/WOM-MODE COMPL SPEC&COLR Fernanda Cho APRN.ROUGHENER [address] [address] [facility] [place] [address] Referral ID Status Reason Start Date Expiration Date Visits Requested Visits Authorized [id number] Pending Review Auto-Generat ed Referral 01/15/2023 01/15/2024 1 1 [facility] for referral (narrative)* Outpatient Procedure (Routine) - Pending Review Specialty Diagnoses / Procedures Referred By Contac t Referred To Contact [facility] Diagnoses HOCM (hypertrophic obstructive cardiomyopathy) (HCC) Aortic valve stenosis, etiology of cardiac valve disease unspecified Hyperlipidemia, unspecified hyperlipidemia type Hypertension, unspecified type Controlled type 2 diabetes mellitus without complication, unspecified whether half-way insulin use (HCC) SOB (shortness of breath) Chest pain, unspecified type Pre-operative cardiovascular examination Procedures ECG COMPLETE ECG ROUTINE ECG W/LEAST 12 LDS W/I&R Robert Ferrer MD [address] [place], [place] [id number] [facility] [place] [address] Referral ID Status Reason Start Date Expiration Date Visits Requested Visits Authorized [id number] Pending Review Auto-Generat ed Referral 07/13/2023 07/12/2024 1 1 * Consult, Test, Treat (Routine) - Authorized Specialty Diagnoses / Procedures Referred By Contac t Referred To Contact Cardiac Surg Diagnoses HOCM (hypertrophic obstructive cardiomyopathy) (HCC) Aortic valve stenosis, etiology of cardiac valve disease unspecified Hyperlipidemia, unspecified hyperlipidemia type Hypertension, unspecified type Controlled type 2 diabetes mellitus without complication, 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) SOB (shortness of breath) Chest pain, unspecified type Pre-operative cardiovascular examination Procedures CARDIOTHORACIC PREOP EVALUATION OFFICE/OUTPATIENT [facility] 60 MINUTES Robert Ferrer MD [address] [id number] Referral ID Status Reason Start Date Expiration Date Visits Requested Visits Authorized [id number] Authorized PCP Requested Referral 07/13/2023 07/12/2024 1 1 [facility] for referral (narrative)* Outpatient Procedure (Routine) - Authorized Specialty Diagnoses / Procedures Referred By Mariliaac t Referred To Contact [facility] Diagnoses SOB (shortness of breath) Procedures ECHO ECHO TTHRC R-T 2D W/WOM-MODE COMPL SPEC&COLR D Antoinette Alicea APRN.CNP [address] [id number] [place] [address] Referral ID Status Reason Start Date Expiration Date Visits Requested Visits Authorized [id number] Authorized Auto-Generat ed Referral 12/27/2023 12/26/2024 1 1 [facility] for referral (narrative)* Outpatient Procedure (Routine) - Closed Specialty Diagnoses / Procedures Referred By Contac t Referred To Contact [facility] Diagnoses SOB (shortness of breath) Procedures ECHO ECHO TTHRC R-T 2D W/WOM-MODE COMPL SPEC&COLR D Antoinette Alicea APRN.CNP [address] [place] [address] [address] Referral ID Status Reason Start Date Expiration Date V isits Requested Visits Authorized [id number] Closed Auto-Generate d Referral 12/27/2023 12/26/2024 1 1 [facility] for visit Narrative* Diagnostic Procedure Only (Routine) - Closed Specialty Diagnoses / Procedures Referred By Contact Referred To Contact MOLECULAR & FUNCTIONAL IMAGING Diagnoses Coronary artery disease involving [place] coronary artery of [place] heart without angina pectoris Essential hypertension Mixed hyperlipidemia Non-rheumatic aortic stenosis HERNANDEZ (dyspnea on exertion) Procedures NM CARDIAC PERF STRESS/PHARM MYOCARDIAL SPECT MULTIPLE STUDIES ArianBurke, DO [address] [place] [address] Molecular & Functional Imaging [address] [place] [address] Referral ID Status Reason Start Date Expiration Date V isits Requested Visits Authorized [id number] Closed Auto-Generate d Referral 12/16/2021 01/15/2023 1 1 [facility] for visit Narrative* Outpatient Procedure (Routine) - Closed Specialty Diagnoses / Procedures Referred By Contac t Referred [facility] Diagnoses Coronary artery disease involving [place] coronary artery of [place] heart without angina pectoris HERNANDEZ (dyspnea on exertion) Essential hypertension Mixed hyperlipidemia Non-rheumatic aortic stenosis AV block, 1st degree Procedures ECHO ECHO TTHRC R-T 2D W/WOM-MODE COMPL SPEC&COLR D Burke Barron, DO [address] [place] [address] [facility] [address] [place] [address] Referral ID Status Reason Start Date Expiration Date V isits Requested Visits Authorized [id number] Closed Patient Cleared - INN Insurance Found OON/Self Pay Override 06/29/2022 06/29/2023 1 1 [facility] for visit Narrative* Outpatient Procedure (Routine) - Closed Specialty Diagnoses / Procedures Referred By Contac t Referred To [facility] Diagnoses SOB (shortness of breath) Procedures ECHO ECHO TTHRC R-T 2D W/WOM-MODE COMPL SPEC&COLR D Antoinette Alicea APRN.ROUGHENER [address] [place] [address] [facility] [address] [place] [address] Referral ID Status Reason Start Date Expiration Date V isits Requested Visits Authorized [id number] Closed Auto-Generate d Referral 12/27/2023 12/26/2024 1 1 [facility] Outpatient Procedure (Routine) - Closed Specialty Diagnoses / Procedures Referred By Contac t Referred To Contact [facility] Diagnoses Screening for colon cancer Positive colorectal cancer screening using Cologuard test Procedures COLONOSCOPY SCREENING COLONOSCOPY FLX DX W/COLLJ SPEC WHEN PFRMD Denis Rivero MD [address] [place] [address] Phone: tel: fax: [facility] [address] [place] [id number] Referral ID Status Reason Start Date Expiration Date V isits Requested Visits Authorized [id number] Closed Auto-Generate d Referral 06/05/2024 06/05/2025 1 1 [facility] Summary Purpose Family History No Family History Records FoundNo Family History Records FoundNo Family History Records FoundNo Family History Records FoundNo Family History Records FoundNo Family History Records FoundNo Family History Records Found Advance Directives No Advanced Directives Records FoundDocuments on File 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 Date 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 Advance Directive(s) 04/23/2019 11:06 AM Advance Directive(s) 04/22/2019 4:56 PM Advance Directive(s) 08/24/2018 8:17 AM Latest Code Status on File Code Status Date Activated Date Inactivated Comments Full Code 04/22/2019 9:23 PM 04/26/2019 3:55 PM Full Code Order Discussed With: Patient Latest Code Status on File Code Status Date Activated Date Inactivated Comments Full Code 04/22/2019 9:23 PM 04/26/2019 3:55 PM Advance Directive Response Recorded Date/ Time Living Will Yes October 02, 2022 8:50am Power of Protection Specialist Yes October 02 8:50am Advance Directives on File No October 02, 2022 8:50am Latest Code Status on File Code Status Date Activated Date Inactivated Comments Full Code 04/22/2019 9:23 PM 04/26/2019 3:55 PM Question Answer Comments Full Code Order Discussed With: Patient Latest Code Status on File Code Status Date Activated Date Inactivated Comments Full Code 04/22/2019 9:23 PM 04/26/2019 3:55 PM Question Answer Comments Full Code Order Discussed With: Patient Advance Directive Response Recorded Date/ Time Living Will Yes October 02, 2022 8:50am Power of Protection Specialist Yes October 02 8:50am Latest Code Status on File Code Status Date Activated Date Inactivated Comments Full Code 04/22/2019 9:23 PM 04/26/2019 3:55 PM Question Answer Comments Full Code Order Discussed With: Patient Date Activated Date Inactivated Comments 04/22/2019 9:23 PM 04/26/2019 3:55 PM Question Answer Comments Full Code Order Discussed With: Patient Date Activated Date Inactivated Comments 04/22/2019 9:23 PM 04/26/2019 3:55 PM Question Answer Comments Full Code Order Discussed With: Patient Medications Administered Section Inactive Administered Medications - up to 3 most recent administrations Medication Order MAR Action Action Date Dose Rate Site regadenoson 0.4 mg injection (LEXISCAN) 0.4 mg, INTRAVENOUS, ONCE, 1 dose, On Sun01/02/22 at 1030, Give 0.4 mg (5 mL) over ~10 seconds, followed immediately by a 5 mL saline flush. Wait 10-20 seconds, then administer the radionuclide myocardial perfusion imaging agent. Given 01/02/2022 8:10 AM EDT 0.4 mg Chief Complaint and Reason for Visit Chief Complaint PCI W/CORONARY STENT ING PCI W/CORONARY STENT Chief Complaint PCI W/CORONARY STENT ING PCI W/CORONARY STENT PCI W/CORONARY STENT Chief Complaint PCI W/CORONARY STENT ING PCI W/CORONARY STENT PCI W/CORONARY STENT PCI W/CORONARY STENT Chief Complaint PCI W/CORONARY STENT PCI W/CORONARY STENT PCI W/CORONARY STENT PCI W/CORONARY STENT Reason for Referral Specialty Diagnoses / Procedures Referred By Onesimo t Referred To Contact Diagnoses On continuous oral anticoagulation Aortic valve stenosis, etiology of cardiac valve disease unspecified Positive colorectal cancer screening using Cologuard test Procedures REFER TO PACC - PRE ANESTHESIA CONSULTATION CLINIC OFFICE/OUTPATIENT [facility] 60-74 MINUTES Rey Ordonez PA-C [address] [place] [address] Referral ID Status Reason Start Date Expiration Date Visits Requested Visits Authorized [id number] Authorized PCP Requested Referral 3 02/07/2024 1 1 Specialty Diagnoses / Procedures Referred By Contac t Referred To Contact [facility] Diagnoses Positive colorectal cancer screening using Cologuard test Procedures COLONOSCOPY DIAGNOSTIC COLONOSCOPY FLX DX W/COLLJ SPEC WHEN PFRMD Rey Ordonez PA-C [address] [place] [address] [facility] [address] [place] [address] Referral ID Status Reason Start Date Expiration Date Visits Requested Visits Authorized [id number] Authorized Auto-Generat ed Referral 3 02/08/2024 1 1 Specialty Diagnoses / Procedures Referred By Contac t Referred To Contact CT IMAGING Diagnoses Encounter for preprocedural cardiovascular examination Procedures CTA CHEST (GATED) WO/W IVCON CT ANGIOGRAPHY CHEST W/CONTRAST/NONCONTRAST Gisel Wallace, HOME PERFORMANCE LABORER.ROUGHENER [address] [place] [address] Fax: Ct Imaging [facility] Referral ID Status Reason Start Date Expiration Date Visits Requested Visits Authorized [id number] Authorized Auto-Generat ed Referral 3 04/19/2024 1 1 Specialty Diagnoses / Procedures Referred By Contac t Referred To Contact CT IMAGING Diagnoses Encounter for preprocedural cardiovascular examination Procedures CTA ABD/PEL W IVCON CT ANGIO ABD&PLVIS CNTRST MTRL W/WO CNTRST IMGES Gisel Wallace, HOME PERFORMANCE LABORER.ROUGHENER [address] [place] [address] Fax: Ct Imaging [facility] Referral ID Status Reason Start Date Expiration Date Visits Requested Visits Authorized [id number] Authorized Auto-Generat ed Referral 3 04/19/2024 1 1 Specialty Diagnoses / Procedures Referred By Contac t Referred To Contact MR IMAGING Diagnoses Nonrheumatic aortic (valve) stenosis HOCM (hypertrophic obstructive cardiomyopathy) (HCC) Procedures MRI CARDIAC VELOCITY FLOW MAP CARDIAC MRI FOR VELOCITY FLOW MAPPING Gisel Wallace, HOME PERFORMANCE LABORER.ROUGHENER [address] [place] [address] Fax: [place] [address] Referral ID Status Reason Start Date Expiration Date V isits Requested Visits Authorized [id number] Closed Auto-Generate d Referral 04/25/2023 05/24/2024 1 1 Specialty Diagnoses / Procedures Referred By Contac t Referred To Contact MR IMAGING Diagnoses Nonrheumatic aortic (valve) stenosis HOCM (hypertrophic obstructive cardiomyopathy) (HCC) Procedures MRI CARDIAC MORPH FUNC WO/W IVCON CARDIAC MRI W/WO CONTRAST & FURTHER SEQ Gisel Wallace, HOME PERFORMANCE LABORER.ROUGHENER [address] [place] [address] [place] [address] Referral ID Status Reason Start Date Expiration Date V isits Requested Visits Authorized [id number] Closed Auto-Generate d Referral 04/25/2023 05/24/2024 1 1 Specialty Diagnoses / Procedures Referred By Contac t Referred To Contact Cardiothoracic Surgery Diagnoses Nonrheumatic aortic (valve) stenosis HOCM (hypertrophic obstructive cardiomyopathy) (HCC) Procedures CONSULT TO CARDIOTHORACIC SURGERY Oleksandr Boykin MD [address] [place] [address] Referral ID Status Reason Start Date Expiration Date Visits Requested Visits Authorized [id number] Ref Not Required PCP Requested Referral 07/10/2023 07/09/2024 1 1 Specialty Diagnoses / Procedures Referred By Contac t Referred To Contact Diagnoses S/P aortic valve replacement Rimma Varela, HOME PER[employer]MAN[employer]ER.[employer] [place] [address] Referral ID Status Reason Start Date Expiration Date V isits Requested Visits Authorized [id number] Authorized 09/04/2023 03/02/2024 1 1 Specialty Diagnoses / Procedures Referred By Contac t Referred To Contact Diagnoses Intractable episodic cluster headache Procedures CONSULT TO [facility] Ca Peterson PA-C [address] [place] [address] Referral ID Status Reason Start Date Expiration Date Visits Requested Visits Authorized [id number] New Request PCP Requested Referral 11/30/2023 02/28/2024 3 3 Specialty Diagnoses / Procedures Referred By Contac t Referred To Contact MR IMAGING Diagnoses Thunderclap headache Procedures MRA CAROTID WO/W IVCON MRA,NECK; W/WO CONTRAST Ca Peterson PA-C [address] [place] [address] [place] [address] Referral ID Status Reason Start Date Expiration Date Visits Requested Visits Authorized [id number] Authorized Auto-Generat ed Referral 11/30/2023 12/29/2024 1 1 Specialty Diagnoses / Procedures Referred By Contac t Referred To Contact MR IMAGING Diagnoses Thunderclap headache Procedures MRA BRAIN WO IVCON MRA, HEAD W/O CONTRAST Ca Peterson PA-C [address] [place] [address] [place] [address] Referral ID Status Reason Start Date Expiration Date Visits Requested Visits Authorized [id number] New Request Auto-Generat ed Referral 11/30/2023 12/29/2024 1 1 Specialty Diagnoses / Procedures Referred By Contac t Referred To Contact MR IMAGING Diagnoses Thunderclap headache Procedures MRI BRAIN WO IVCON MRI BRAIN BRAIN STEM W/O CONTRAST MATERIAL Ca Peterson PA-C [address] [place] [address] [place] [address] Referral ID Status Reason Start Date Expiration Date Visits Requested Visits Authorized [id number] Authorized Auto-Generat ed Referral 11/30/2023 12/29/2024 1 1 Referral ID Status Reason Start Date Expiration Date V isits Requested Visits Authorized [id number] Closed Auto-Generate d Referral 11/30/2023 12/29/2024 1 1 Specialty Diagnoses / Procedures Referred By Contac t Referred To Contact Diagnoses Intractable episodic cluster headache Ca Peterson PA-C [address] [place] [address] Referral ID Status Reason Start Date Expiration Date V isits Requested Visits Authorized [id number] Pending Review 12/13/2023 02/11/2024 1 1 Specialty Diagnoses / Procedures Referred By Contac t Referred To Contact Diagnoses Cardiac arrhythmia, unspecified cardiac arrhythmia type Procedures CONSULT TO ELECTROPHYSIOLOGY OFFICE/OUTPATIENT NEW HIGH MDM 60 MINUTES Ca Peterson PA-C [address] [place] [address] Referral ID Status Reason Start Date Expiration Date Visits Requested Visits Authorized [id number] Authorized PCP Requested Referral 12/13/2023 12/12/2024 1 1 Referral ID Status Reason Start Date Expiration Date V isits Requested Visits Authorized [id number] Closed Auto-Generate d Referral 11/30/2023 12/29/2024 1 1 Referral ID Status Reason Start Date Expiration Date V isits Requested Visits Authorized [id number] Closed Auto-Generate d Referral 11/30/2023 12/29/2024 1 1 Specialty Diagnoses / Procedures Referred By Onesimo t Referred To Contact Denis Rivero MD [address] [place] [address] Referral ID Status Reason Start Date Expiration Date V isits Requested Visits Authorized [id number] Pending Review 1 1 Health Concerns Active Problems Noted Date Diagnosed Date Interactive Heart Surgery Education 07/13/2023 Active Problems Noted Date Diagnosed Date Interactive Heart Surgery Education 07/13/2023 Additional Source Comments (unrecognized sect ion and content) No Status Records FoundNo Status Records FoundNo Status Records FoundNo Status Records FoundNo Status Records FoundNo Status Records FoundNo Status Records Found INFORMATION SOURCE (unrecogn ized section and content) DATE CREATED AUTHOR 10/16/2017 [facility] DATE CREATED AUTHOR AUTHOR'S ORGANIZ ATION 10/17/[address] [facility] DATE CREATED AUTHOR AUTHOR'S ORGANIZ ATION 09/18/2020 [facility] DATE CREATED AUTHOR AUTHOR'S ORGANIZ ATION 12/30/2023 [facility] DATE CREATED AUTHOR AUTHOR'S ORGANIZ ATION 02/08/2024 [facility] DATE CREATED AUTHOR AUTHOR'S ORGANIZ ATION 01/07/2025 [facility] DATE CREATED AUTHOR AUTHOR'S ORGANIZ ATION 01/29/2025 [facility] Source Comments (unrecognize d section and content) In the event this informatio n is protected by the Federal Confidentiality of Alcohol and Drug Abuse Patient Records regulations: The Federal rules restrict any use of the information to criminally investigate or prosecute any alcohol or drug abuse patient.[facility] the event this information is protected by the Federal Confidentiality of Alcohol and Drug Abuse Patient Records regulations: The Federal rules restrict any use of the information to criminally investigate or prosecute any alcohol or drug abuse patient.[facility] the event this information is protected by the Federal Confidentiality of Alcohol and Drug Abuse Patient Records regulations: The Federal rules restrict any use of the information to criminally investigate or prosecute any alcohol or drug abuse patient.[facility] the event this information is protected by the Federal Confidentiality of Alcohol and Drug Abuse Patient Records regulations: The Federal rules restrict any use of the information to criminally investigate or prosecute any alcohol or drug abuse patient.[facility] the event this information is protected by the Federal Confidentiality of Alcohol and Drug Abuse Patient Records regulations: The Federal rules restrict any use of the information to criminally investigate or prosecute any alcohol or drug abuse patient.[facility] the event this information is protected by the Federal Confidentiality of Alcohol and Drug Abuse Patient Records regulations: The Federal rules restrict any use of the information to criminally investigate or prosecute any alcohol or drug abuse patient.[facility] the event this information is protected by the Federal Confidentiality of Alcohol and Drug Abuse Patient Records regulations: The Federal rules restrict any use of the information to criminally investigate or prosecute any alcohol or drug abuse patient.[facility] the event this information is protected by the Federal Confidentiality of Alcohol and Drug Abuse Patient Records regulations: The Federal rules restrict any use of the information to criminally investigate or prosecute any alcohol or drug abuse patient.[facility]In the event this information is protected by the Federal Confidentiality of Alcohol and Drug Abuse Patient Records regulations: The Federal rules restrict any use of the information to criminally investigate or prosecute any alcohol or drug abuse patient.[facility]In the event this information is protected by the Federal Confidentiality of Alcohol and Drug Abuse Patient Records regulations: The Federal rules restrict any use of the information to criminally investigate or prosecute any alcohol or drug abuse patient.[facility]In the event this information is protected by the Federal Confidentiality of Alcohol and Drug Abuse Patient Records regulations: The Federal rules restrict any use of the information to criminally investigate or prosecute any alcohol or drug abuse patient.[facility]In the event this information is protected by the Federal Confidentiality of Alcohol and Drug Abuse Patient Records regulations: The Federal rules restrict any use of the information to criminally investigate or prosecute any alcohol or drug abuse patient.[facility]In the event this information is protected by the Federal Confidentiality of Alcohol and Drug Abuse Patient Records regulations: The Federal rules restrict any use of the information to criminally investigate or prosecute any alcohol or drug abuse patient.[facility]In the event this information is protected by the Federal Confidentiality of Alcohol and Drug Abuse Patient Records regulations: The Federal rules restrict any use of the information to criminally investigate or prosecute any alcohol or drug abuse patient.[facility]In the event this information is protected by the Federal Confidentiality of Alcohol and Drug Abuse Patient Records regulations: The Federal rules restrict any use of the information to criminally investigate or prosecute any alcohol or drug abuse patient.[facility]In the event this information is protected by the Federal Confidentiality of Alcohol and Drug Abuse Patient Records regulations: The Federal rules restrict any use of the information to criminally investigate or prosecute any alcohol or drug abuse patient.[facility]In the event this information is protected by the Federal Confidentiality of Alcohol and Drug Abuse Patient Records regulations: The Federal rules restrict any use of the information to criminally investigate or prosecute any alcohol or drug abuse patient.[facility]In the event this information is protected by the Federal Confidentiality of Alcohol and Drug Abuse Patient Records regulations: The Federal rules restrict any use of the information to criminally investigate or prosecute any alcohol or drug abuse patient.[facility]In the event this information is protected by the Federal Confidentiality of Alcohol and Drug Abuse Patient Records regulations: The Federal rules restrict any use of the information to criminally investigate or prosecute any alcohol or drug abuse patient.[facility]In the event this information is protected by the Federal Confidentiality of Alcohol and Drug Abuse Patient Records regulations: The Federal rules restrict any use of the information to criminally investigate or prosecute any alcohol or drug abuse patient.[facility]In the event this information is protected by the Federal Confidentiality of Alcohol and Drug Abuse Patient Records regulations: The Federal rules restrict any use of the information to criminally investigate or prosecute any alcohol or drug abuse patient.[facility] HospitalIn the event this information is protected by the Federal Confidentiality of Alcohol and Drug Abuse Patient Records regulations: The Federal rules restrict any use of the information to criminally investigate or prosecute any alcohol or drug abuse patient.[facility] HospitalIn the event this information is protected by the Federal Confidentiality of Alcohol and Drug Abuse Patient Records regulations: The Federal rules restrict any use of the information to criminally investigate or prosecute any alcohol or drug abuse patient.[facility]In the event this information is protected by the Federal Confidentiality of Alcohol and Drug Abuse Patient Records regulations: The Federal rules restrict any use of the information to criminally investigate or prosecute any alcohol or drug abuse patient.[facility]In the event this information is protected by the Federal Confidentiality of Alcohol and Drug Abuse Patient Records regulations: The Federal rules restrict any use of the information to criminally investigate or prosecute any alcohol or drug abuse patient.[facility]In the event this information is protected by the Federal Confidentiality of Alcohol and Drug Abuse Patient Records regulations: The Federal rules restrict any use of the information to criminally investigate or prosecute any alcohol or drug abuse patient.[facility]In the event this information is protected by the Federal Confidentiality of Alcohol and Drug Abuse Patient Records regulations: The Federal rules restrict any use of the information to criminally investigate or prosecute any alcohol or drug abuse patient.[facility]In the event this information is protected by the Federal Confidentiality of Alcohol and Drug Abuse Patient Records regulations: The Federal rules restrict any use of the information to criminally investigate or prosecute any alcohol or drug abuse patient.[facility]In the event this information is protected by the Federal Confidentiality of Alcohol and Drug Abuse Patient Records regulations: The Federal rules restrict any use of the information to criminally investigate or prosecute any alcohol or drug abuse patient.[facility]In the event this information is protected by the Federal Confidentiality of Alcohol and Drug Abuse Patient Records regulations: The Federal rules restrict any use of the information to criminally investigate or prosecute any alcohol or drug abuse patient.[facility]In the event this information is protected by the Federal Confidentiality of Alcohol and Drug Abuse Patient Records regulations: The Federal rules restrict any use of the information to criminally investigate or prosecute any alcohol or drug abuse patient.[facility]In the event this information is protected by the Federal Confidentiality of Alcohol and Drug Abuse Patient Records regulations: The Federal rules restrict any use of the information to criminally investigate or prosecute any alcohol or drug abuse patient.[facility]In the event this information is protected by the Federal Confidentiality of Alcohol and Drug Abuse Patient Records regulations: The Federal rules restrict any use of the information to criminally investigate or prosecute any alcohol or drug abuse patient.[facility]In the event this information is protected by the Federal Confidentiality of Alcohol and Drug Abuse Patient Records regulations: The Federal rules restrict any use of the information to criminally investigate or prosecute any alcohol or drug abuse patient.[facility]In the event this information is protected by the Federal Confidentiality of Alcohol and Drug Abuse Patient Records regulations: The Federal rules restrict any use of the information to criminally investigate or prosecute any alcohol or drug abuse patient.[facility]In the event this information is protected by the Federal Confidentiality of Alcohol and Drug Abuse Patient Records regulations: The Federal rules restrict any use of the information to criminally investigate or prosecute any alcohol or drug abuse patient.[facility]In the event this information is protected by the Federal Confidentiality of Alcohol and Drug Abuse Patient Records regulations: The Federal rules restrict any use of the information to criminally investigate or prosecute any alcohol or drug abuse patient.[facility]In the event this information is protected by the Federal Confidentiality of Alcohol and Drug Abuse Patient Records regulations: The Federal rules restrict any use of the information to criminally investigate or prosecute any alcohol or drug abuse patient.[facility]In the event this information is protected by the Federal Confidentiality of Alcohol and Drug Abuse Patient Records regulations: The Federal rules restrict any use of the information to criminally investigate or prosecute any alcohol or drug abuse patient.[facility]In the event this information is protected by the Federal Confidentiality of Alcohol and Drug Abuse Patient Records regulations: The Federal rules restrict any use of the information to criminally investigate or prosecute any alcohol or drug abuse patient.[facility]In the event this information is protected by the Federal Confidentiality of Alcohol and Drug Abuse Patient Records regulations: The Federal rules restrict any use of the information to criminally investigate or prosecute any alcohol or drug abuse patient.[facility]In the event this information is protected by the Federal Confidentiality of Alcohol and Drug Abuse Patient Records regulations: The Federal rules restrict any use of the information to criminally investigate or prosecute any alcohol or drug abuse patient.[facility]In the event this information is protected by the Federal Confidentiality of Alcohol and Drug Abuse Patient Records regulations: The Federal rules restrict any use of the information to criminally investigate or prosecute any alcohol or drug abuse patient.[facility]In the event this information is protected by the Federal Confidentiality of Alcohol and Drug Abuse Patient Records regulations: The Federal rules restrict any use of the information to criminally investigate or prosecute any alcohol or drug abuse patient.[facility]In the event this information is protected by the Federal Confidentiality of Alcohol and Drug Abuse Patient Records regulations: The Federal rules restrict any use of the information to criminally investigate or prosecute any alcohol or drug abuse patient.[facility]In the event this information is protected by the Federal Confidentiality of Alcohol and Drug Abuse Patient Records regulations: The Federal rules restrict any use of the information to criminally investigate or prosecute any alcohol or drug abuse patient.[facility] HospitalIn the event this information is protected by the Federal Confidentiality of Alcohol and Drug Abuse Patient Records regulations: The Federal rules restrict any use of the information to criminally investigate or prosecute any alcohol or drug abuse patient.[facility] HospitalIn the event this information is protected by the Federal Confidentiality of Alcohol and Drug Abuse Patient Records regulations: The Federal rules restrict any use of the information to criminally investigate or prosecute any alcohol or drug abuse patient.[facility] HospitalIn the event this information is protected by the Federal Confidentiality of Alcohol and Drug Abuse Patient Records regulations: The Federal rules restrict any use of the information to criminally investigate or prosecute any alcohol or drug abuse patient.[facility]In the event this information is protected by the Federal Confidentiality of Alcohol and Drug Abuse Patient Records regulations: The Federal rules restrict any use of the information to criminally investigate or prosecute any alcohol or drug abuse patient.[facility]In the event this information is protected by the Federal Confidentiality of Alcohol and Drug Abuse Patient Records regulations: The Federal rules restrict any use of the information to criminally investigate or prosecute any alcohol or drug abuse patient.[facility]In the event this information is protected by the Federal Confidentiality of Alcohol and Drug Abuse Patient Records regulations: The Federal rules restrict any use of the information to criminally investigate or prosecute any alcohol or drug abuse patient.[facility]In the event this information is protected by the Federal Confidentiality of Alcohol and Drug Abuse Patient Records regulations: The Federal rules restrict any use of the information to criminally investigate or prosecute any alcohol or drug abuse patient.[facility]In the event this information is protected by the Federal Confidentiality of Alcohol and Drug Abuse Patient Records regulations: The Federal rules restrict any use of the information to criminally investigate or prosecute any alcohol or drug abuse patient.[facility]In the event this information is protected by the Federal Confidentiality of Alcohol and Drug Abuse Patient Records regulations: The Federal rules restrict any use of the information to criminally investigate or prosecute any alcohol or drug abuse patient.[facility]In the event this information is protected by the Federal Confidentiality of Alcohol and Drug Abuse Patient Records regulations: The Federal rules restrict any use of the information to criminally investigate or prosecute any alcohol or drug abuse patient.[facility]In the event this information is protected by the Federal Confidentiality of Alcohol and Drug Abuse Patient Records regulations: The Federal rules restrict any use of the information to criminally investigate or prosecute any alcohol or drug abuse patient.[facility]In the event this information is protected by the Federal Confidentiality of Alcohol and Drug Abuse Patient Records regulations: The Federal rules restrict any use of the information to criminally investigate or prosecute any alcohol or drug abuse patient.[facility]In the event this information is protected by the Federal Confidentiality of Alcohol and Drug Abuse Patient Records regulations: The Federal rules restrict any use of the information to criminally investigate or prosecute any alcohol or drug abuse patient.[facility]In the event this information is protected by the Federal Confidentiality of Alcohol and Drug Abuse Patient Records regulations: The Federal rules restrict any use of the information to criminally investigate or prosecute any alcohol or drug abuse patient.[facility]In the event this information is protected by the Federal Confidentiality of Alcohol and Drug Abuse Patient Records regulations: The Federal rules restrict any use of the information to criminally investigate or prosecute any alcohol or drug abuse patient.[facility]In the event this information is protected by the Federal Confidentiality of Alcohol and Drug Abuse Patient Records regulations: The Federal rules restrict any use of the information to criminally investigate or prosecute any alcohol or drug abuse patient.[facility]In the event this information is protected by the Federal Confidentiality of Alcohol and Drug Abuse Patient Records regulations: The Federal rules restrict any use of the information to criminally investigate or prosecute any alcohol or drug abuse patient.[facility]In the event this information is protected by the Federal Confidentiality of Alcohol and Drug Abuse Patient Records regulations: The Federal rules restrict any use of the information to criminally investigate or prosecute any alcohol or drug abuse patient.[facility]In the event this information is protected by the Federal Confidentiality of Alcohol and Drug Abuse Patient Records regulations: The Federal rules restrict any use of the information to criminally investigate or prosecute any alcohol or drug abuse patient.[facility]In the event this information is protected by the Federal Confidentiality of Alcohol and Drug Abuse Patient Records regulations: The Federal rules restrict any use of the information to criminally investigate or prosecute any alcohol or drug abuse patient.[facility]In the event this information is protected by the Federal Confidentiality of Alcohol and Drug Abuse Patient Records regulations: The Federal rules restrict any use of the information to criminally investigate or prosecute any alcohol or drug abuse patient.[facility]In the event this information is protected by the Federal Confidentiality of Alcohol and Drug Abuse Patient Records regulations: The Federal rules restrict any use of the information to criminally investigate or prosecute any alcohol or drug abuse patient.[facility]In the event this information is protected by the Federal Confidentiality of Alcohol and Drug Abuse Patient Records regulations: The Federal rules restrict any use of the information to criminally investigate or prosecute any alcohol or drug abuse patient.[facility]In the event this information is protected by the Federal Confidentiality of Alcohol and Drug Abuse Patient Records regulations: The Federal rules restrict any use of the information to criminally investigate or prosecute any alcohol or drug abuse patient.[facility] HospitalIn the event this information is protected by the Federal Confidentiality of Alcohol and Drug Abuse Patient Records regulations: The Federal rules restrict any use of the information to criminally investigate or prosecute any alcohol or drug abuse patient.[facility]In the event this information is protected by the Federal Confidentiality of Alcohol and Drug Abuse Patient Records regulations: The Federal rules restrict any use of the information to criminally investigate or prosecute any alcohol or drug abuse patient.[facility]In the event this information is protected by the Federal Confidentiality of Alcohol and Drug Abuse Patient Records regulations: The Federal rules restrict any use of the information to criminally investigate or prosecute any alcohol or drug abuse patient.[facility]In the event this information is protected by the Federal Confidentiality of Alcohol and Drug Abuse Patient Records regulations: The Federal rules restrict any use of the information to criminally investigate or prosecute any alcohol or drug abuse patient.[facility]In the event this information is protected by the Federal Confidentiality of Alcohol and Drug Abuse Patient Records regulations: The Federal rules restrict any use of the information to criminally investigate or prosecute any alcohol or drug abuse patient.[facility]In the event this information is protected by the Federal Confidentiality of Alcohol and Drug Abuse Patient Records regulations: The Federal rules restrict any use of the information to criminally investigate or prosecute any alcohol or drug abuse patient.[facility]In the event this information is protected by the Federal Confidentiality of Alcohol and Drug Abuse Patient Records regulations: The Federal rules restrict any use of the information to criminally investigate or prosecute any alcohol or drug abuse patient.[facility]In the event this information is protected by the Federal Confidentiality of Alcohol and Drug Abuse Patient Records regulations: The Federal rules restrict any use of the information to criminally investigate or prosecute any alcohol or drug abuse patient.[facility]In the event this information is protected by the Federal Confidentiality of Alcohol and Drug Abuse Patient Records regulations: The Federal rules restrict any use of the information to criminally investigate or prosecute any alcohol or drug abuse patient.[facility]In the event this information is protected by the Federal Confidentiality of Alcohol and Drug Abuse Patient Records regulations: The Federal rules restrict any use of the information to criminally investigate or prosecute any alcohol or drug abuse patient.[facility]In the event this information is protected by the Federal Confidentiality of Alcohol and Drug Abuse Patient Records regulations: The Federal rules restrict any use of the information to criminally investigate or prosecute any alcohol or drug abuse patient.[facility]In the event this information is protected by the Federal Confidentiality of Alcohol and Drug Abuse Patient Records regulations: The Federal rules restrict any use of the information to criminally investigate or prosecute any alcohol or drug abuse patient.[facility]In the event this information is protected by the Federal Confidentiality of Alcohol and Drug Abuse Patient Records regulations: The Federal rules restrict any use of the information to criminally investigate or prosecute any alcohol or drug abuse patient.[facility]In the event this information is protected by the Federal Confidentiality of Alcohol and Drug Abuse Patient Records regulations: The Federal rules restrict any use of the information to criminally investigate or prosecute any alcohol or drug abuse patient.[facility]In the event this information is protected by the Federal Confidentiality of Alcohol and Drug Abuse Patient Records regulations: The Federal rules restrict any use of the information to criminally investigate or prosecute any alcohol or drug abuse patient.[facility]In the event this information is protected by the Federal Confidentiality of Alcohol and Drug Abuse Patient Records regulations: The Federal rules restrict any use of the information to criminally investigate or prosecute any alcohol or drug abuse patient.[facility]In the event this information is protected by the Federal Confidentiality of Alcohol and Drug Abuse Patient Records regulations: The Federal rules restrict any use of the information to criminally investigate or prosecute any alcohol or drug abuse patient.[facility]In the event this information is protected by the Federal Confidentiality of Alcohol and Drug Abuse Patient Records regulations: The Federal rules restrict any use of the information to criminally investigate or prosecute any alcohol or drug abuse patient.[facility]In the event this information is protected by the Federal Confidentiality of Alcohol and Drug Abuse Patient Records regulations: The Federal rules restrict any use of the information to criminally investigate or prosecute any alcohol or drug abuse patient.[facility]In the event this information is protected by the Federal Confidentiality of Alcohol and Drug Abuse Patient Records regulations: The Federal rules restrict any use of the information to criminally investigate or prosecute any alcohol or drug abuse patient.[facility]In the event this information is protected by the Federal Confidentiality of Alcohol and Drug Abuse Patient Records regulations: The Federal rules restrict any use of the information to criminally investigate or prosecute any alcohol or drug abuse patient.[facility]In the event this information is protected by the Federal Confidentiality of Alcohol and Drug Abuse Patient Records regulations: The Federal rules restrict any use of the information to criminally investigate or prosecute any alcohol or drug abuse patient.[facility]In the event this information is protected by the Federal Confidentiality of Alcohol and Drug Abuse Patient Records regulations: The Federal rules restrict any use of the information to criminally investigate or prosecute any alcohol or drug abuse patient.[facility]In the event this information is protected by the Federal Confidentiality of Alcohol and Drug Abuse Patient Records regulations: The Federal rules restrict any use of the information to criminally investigate or prosecute any alcohol or drug abuse patient.[facility]In the event this information is protected by the Federal Confidentiality of Alcohol and Drug Abuse Patient Records regulations: The Federal rules restrict any use of the information to criminally investigate or prosecute any alcohol or drug abuse patient.[facility]In the event this information is protected by the Federal Confidentiality of Alcohol and Drug Abuse Patient Records regulations: The Federal rules restrict any use of the information to criminally investigate or prosecute any alcohol or drug abuse patient.[facility]In the event this information is protected by the Federal Confidentiality of Alcohol and Drug Abuse Patient Records regulations: The Federal rules restrict any use of the information to criminally investigate or prosecute any alcohol or drug abuse patient.[facility]In the event this information is protected by the Federal Confidentiality of Alcohol and Drug Abuse Patient Records regulations: The Federal rules restrict any use of the information to criminally investigate or prosecute any alcohol or drug abuse patient.[facility]In the event this information is protected by the Federal Confidentiality of Alcohol and Drug Abuse Patient Records regulations: The Federal rules restrict any use of the information to criminally investigate or prosecute any alcohol or drug abuse patient.[facility]In the event this information is protected by the Federal Confidentiality of Alcohol and Drug Abuse Patient Records regulations: The Federal rules restrict any use of the information to criminally investigate or prosecute any alcohol or drug abuse patient.[facility]In the event this information is protected by the Federal Confidentiality of Alcohol and Drug Abuse Patient Records regulations: The Federal rules restrict any use of the information to criminally investigate or prosecute any alcohol or drug abuse patient.[facility]In the event this information is protected by the Federal Confidentiality of Alcohol and Drug Abuse Patient Records regulations: The Federal rules restrict any use of the information to criminally investigate or prosecute any alcohol or drug abuse patient.[facility]In the event this information is protected by the Federal Confidentiality of Alcohol and Drug Abuse Patient Records regulations: The Federal rules restrict any use of the information to criminally investigate or prosecute any alcohol or drug abuse patient.[facility]In the event this information is protected by the Federal Confidentiality of Alcohol and Drug Abuse Patient Records regulations: The Federal rules restrict any use of the information to criminally investigate or prosecute any alcohol or drug abuse patient.[facility]In the event this information is protected by the Federal Confidentiality of Alcohol and Drug Abuse Patient Records regulations: The Federal rules restrict any use of the information to criminally investigate or prosecute any alcohol or drug abuse patient.[facility]In the event this information is protected by the Federal Confidentiality of Alcohol and Drug Abuse Patient Records regulations: The Federal rules restrict any use of the information to criminally investigate or prosecute any alcohol or drug abuse patient.[facility]In the event this information is protected by the Federal Confidentiality of Alcohol and Drug Abuse Patient Records regulations: The Federal rules restrict any use of the information to criminally investigate or prosecute any alcohol or drug abuse patient.[facility]In the event this information is protected by the Federal Confidentiality of Alcohol and Drug Abuse Patient Records regulations: The Federal rules restrict any use of the information to criminally investigate or prosecute any alcohol or drug abuse patient.[facility]In the event this information is protected by the Federal Confidentiality of Alcohol and Drug Abuse Patient Records regulations: The Federal rules restrict any use of the information to criminally investigate or prosecute any alcohol or drug abuse patient.[facility]In the event this information is protected by the Federal Confidentiality of Alcohol and Drug Abuse Patient Records regulations: The Federal rules restrict any use of the information to criminally investigate or prosecute any alcohol or drug abuse patient.[facility]In the event this information is protected by the Federal Confidentiality of Alcohol and Drug Abuse Patient Records regulations: The Federal rules restrict any use of the information to criminally investigate or prosecute any alcohol or drug abuse patient.[facility]In the event this information is protected by the Federal Confidentiality of Alcohol and Drug Abuse Patient Records regulations: The Federal rules restrict any use of the information to criminally investigate or prosecute any alcohol or drug abuse patient.[facility]In the event this information is protected by the Federal Confidentiality of Alcohol and Drug Abuse Patient Records regulations: The Federal rules restrict any use of the information to criminally investigate or prosecute any alcohol or drug abuse patient.[facility]In the event this information is protected by the Federal Confidentiality of Alcohol and Drug Abuse Patient Records regulations: The Federal rules restrict any use of the information to criminally investigate or prosecute any alcohol or drug abuse patient.[facility]In the event this information is protected by the Federal Confidentiality of Alcohol and Drug Abuse Patient Records regulations: The Federal rules restrict any use of the information to criminally investigate or prosecute any alcohol or drug abuse patient.[facility]In the event this information is protected by the Federal Confidentiality of Alcohol and Drug Abuse Patient Records regulations: The Federal rules restrict any use of the information to criminally investigate or prosecute any alcohol or drug abuse patient.[facility]In the event this information is protected by the Federal Confidentiality of Alcohol and Drug Abuse Patient Records regulations: The Federal rules restrict any use of the information to criminally investigate or prosecute any alcohol or drug abuse patient.[facility]In the event this information is protected by the Federal Confidentiality of Alcohol and Drug Abuse Patient Records regulations: The Federal rules restrict any use of the information to criminally investigate or prosecute any alcohol or drug abuse patient.[facility]In the event this information is protected by the Federal Confidentiality of Alcohol and Drug Abuse Patient Records regulations: The Federal rules restrict any use of the information to criminally investigate or prosecute any alcohol or drug abuse patient.[facility]In the event this information is protected by the Federal Confidentiality of Alcohol and Drug Abuse Patient Records regulations: The Federal rules restrict any use of the information to criminally investigate or prosecute any alcohol or drug abuse patient.[facility]In the event this information is protected by the Federal Confidentiality of Alcohol and Drug Abuse Patient Records regulations: The Federal rules restrict any use of the information to criminally investigate or prosecute any alcohol or drug abuse patient.[facility]In the event this information is protected by the Federal Confidentiality of Alcohol and Drug Abuse Patient Records regulations: The Federal rules restrict any use of the information to criminally investigate or prosecute any alcohol or drug abuse patient.[facility]In the event this information is protected by the Federal Confidentiality of Alcohol and Drug Abuse Patient Records regulations: The Federal rules restrict any use of the information to criminally investigate or prosecute any alcohol or drug abuse patient.[facility]In the event this information is protected by the Federal Confidentiality of Alcohol and Drug Abuse Patient Records regulations: The Federal rules restrict any use of the information to criminally investigate or prosecute any alcohol or drug abuse patient.[facility]In the event this information is protected by the Federal Confidentiality of Alcohol and Drug Abuse Patient Records regulations: The Federal rules restrict any use of the information to criminally investigate or prosecute any alcohol or drug abuse patient.[facility]In the event this information is protected by the Federal Confidentiality of Alcohol and Drug Abuse Patient Records regulations: The Federal rules restrict any use of the information to criminally investigate or prosecute any alcohol or drug abuse patient.[facility]In the event this information is protected by the Federal Confidentiality of Alcohol and Drug Abuse Patient Records regulations: The Federal rules restrict any use of the information to criminally investigate or prosecute any alcohol or drug abuse patient.[facility]In the event this information is protected by the Federal Confidentiality of Alcohol and Drug Abuse Patient Records regulations: The Federal rules restrict any use of the information to criminally investigate or prosecute any alcohol or drug abuse patient.[facility]In the event this information is protected by the Federal Confidentiality of Alcohol and Drug Abuse Patient Records regulations: The Federal rules restrict any use of the information to criminally investigate or prosecute any alcohol or drug abuse patient.[facility]In the event this information is protected by the Federal Confidentiality of Alcohol and Drug Abuse Patient Records regulations: The Federal rules restrict any use of the information to criminally investigate or prosecute any alcohol or drug abuse patient.[facility]In the event this information is protected by the Federal Confidentiality of Alcohol and Drug Abuse Patient Records regulations: The Federal rules restrict any use of the information to criminally investigate or prosecute any alcohol or drug abuse patient.[facility]In the event this information is protected by the Federal Confidentiality of Alcohol and Drug Abuse Patient Records regulations: The Federal rules restrict any use of the information to criminally investigate or prosecute any alcohol or drug abuse patient.[facility]In the event this information is protected by the Federal Confidentiality of Alcohol and Drug Abuse Patient Records regulations: The Federal rules restrict any use of the information to criminally investigate or prosecute any alcohol or drug abuse patient.[facility]In the event this information is protected by the Federal Confidentiality of Alcohol and Drug Abuse Patient Records regulations: The Federal rules restrict any use of the information to criminally investigate or prosecute any alcohol or drug abuse patient.[facility]In the event this information is protected by the Federal Confidentiality of Alcohol and Drug Abuse Patient Records regulations: The Federal rules restrict any use of the information to criminally investigate or prosecute any alcohol or drug abuse patient.[facility]In the event this information is protected by the Federal Confidentiality of Alcohol and Drug Abuse Patient Records regulations: The Federal rules restrict any use of the information to criminally investigate or prosecute any alcohol or drug abuse patient.[facility]In the event this information is protected by the Federal Confidentiality of Alcohol and Drug Abuse Patient Records regulations: The Federal rules restrict any use of the information to criminally investigate or prosecute any alcohol or drug abuse patient.[facility]In the event this information is protected by the Federal Confidentiality of Alcohol and Drug Abuse Patient Records regulations: The Federal rules restrict any use of the information to criminally investigate or prosecute any alcohol or drug abuse patient.[facility]In the event this information is protected by the Federal Confidentiality of Alcohol and Drug Abuse Patient Records regulations: The Federal rules restrict any use of the information to criminally investigate or prosecute any alcohol or drug abuse patient.[facility]In the event this information is protected by the Federal Confidentiality of Alcohol and Drug Abuse Patient Records regulations: The Federal rules restrict any use of the information to criminally investigate or prosecute any alcohol or drug abuse patient.[facility]In the event this information is protected by the Federal Confidentiality of Alcohol and Drug Abuse Patient Records regulations: The Federal rules restrict any use of the information to criminally investigate or prosecute any alcohol or drug abuse patient.[facility]In the event this information is protected by the Federal Confidentiality of Alcohol and Drug Abuse Patient Records regulations: The Federal rules restrict any use of the information to criminally investigate or prosecute any alcohol or drug abuse patient.[facility]In the event this information is protected by the Federal Confidentiality of Alcohol and Drug Abuse Patient Records regulations: The Federal rules restrict any use of the information to criminally investigate or prosecute any alcohol or drug abuse patient.[facility]In the event this information is protected by the Federal Confidentiality of Alcohol and Drug Abuse Patient Records regulations: The Federal rules restrict any use of the information to criminally investigate or prosecute any alcohol or drug abuse patient.[facility]In the event this information is protected by the Federal Confidentiality of Alcohol and Drug Abuse Patient Records regulations: The Federal rules restrict any use of the information to criminally investigate or prosecute any alcohol or drug abuse patient.[facility]In the event this information is protected by the Federal Confidentiality of Alcohol and Drug Abuse Patient Records regulations: The Federal rules restrict any use of the information to criminally investigate or prosecute any alcohol or drug abuse patient.[facility]In the event this information is protected by the Federal Confidentiality of Alcohol and Drug Abuse Patient Records regulations: The Federal rules restrict any use of the information to criminally investigate or prosecute any alcohol or drug abuse patient.[facility]In the event this information is protected by the Federal Confidentiality of Alcohol and Drug Abuse Patient Records regulations: The Federal rules restrict any use of the information to criminally investigate or prosecute any alcohol or drug abuse patient.[facility]In the event this information is protected by the Federal Confidentiality of Alcohol and Drug Abuse Patient Records regulations: The Federal rules restrict any use of the information to criminally investigate or prosecute any alcohol or drug abuse patient.[facility]In the event this information is protected by the Federal Confidentiality of Alcohol and Drug Abuse Patient Records regulations: The Federal rules restrict any use of the information to criminally investigate or prosecute any alcohol or drug abuse patient.[facility]In the event this information is protected by the Federal Confidentiality of Alcohol and Drug Abuse Patient Records regulations: The Federal rules restrict any use of the information to criminally investigate or prosecute any alcohol or drug abuse patient.[facility] Reason for Visit (unrecogniz ed section and content) Reason Comments Refill Request Reason Comments Diabetes Blood Pressure Reason Comments Orders Reason Comments Physical Reason Comments letter out Reason Comments Diabetes Reason Comments Follow Up Reason Comments F/U 6 Month Reason Comments Medication Problem Reason Comments Eye Exam [facility] [place] () Reason Comments Results Zio Reason Comments Results Reason Comments Diabetes Uncontrolled type 2 diabetes mellitus with hyperglycemia (HCC) Reason Onset Date Comments Refill Request 05/05/2022 Reason Comments Follow Up 6 month check up Reason Comments Patient Question Reason Comments Established Patient Follow-Up No current cardiac concerns Reason Comments Follow Up Dog bite Reason Comments Insulin Dependent Diabetes Mellitus Reason Comments Med Change Request Reason Comments Patient Question CGM order issue Reason Comments Insurance Authorization Reason Comments Cardiology Follow Up No new cardiac conc erns Reason Comments Received Outside Medical Records [facility] re: Diabetic Eye Exam (11/17/22) Reason Comments [facility] re: m edical clearance (11/18/22) Reason Comments Follow Up Denies cardiac natasha rns Reason Comments 04-04-23 Colonoscopy [facility] Reason Comments Consult Colonoscopy consulta tion, positive FOBT. Reason Comments Cardiac Clearance Upcoming Colonoscopy Reason Comments Appointment Reason Comments Other Please protocol this Cardiac MRI Specialty Diagnoses / Procedures Referred By Onesimo philippe Referred To Contact MR IMAGING Diagnoses Nonrheumatic aortic (valve) stenosis HOCM (hypertrophic obstructive cardiomyopathy) (HCC) Procedures MRI CARDIAC MORPH FUNC WO/W IVCON CARDIAC MRI W/WO CONTRAST & FURTHER SEQ Gisel Wallace, HOME PERFORMANCE LABORER.ROUGHENER [address] [place] [address] [place] [id number] Referral ID Status Reason Start Date Expiration Date V isits Requested Visits Authorized [id number] Closed Auto-Generate d Referral 04/25/2023 05/24/2024 1 1 Reason Onset Date Comments Refill Request 07/05/2023 Reason Comments Guide Changer - Other Reason Comments Referral Information Schedule Surgery Pre op checklist Reason Comments Follow Up Room 1Follow up Card iac Sx Scheduled 08/16/23 Myectomy / Valve ReplacementEKG 04/27/2023 ECHO 03/19/2023 Reason Comments Patient Education Specialty Diagnoses / Procedures Referred By Onesimo philippe Referred To Contact Cardiac Surg Diagnoses HOCM (hypertrophic obstructive cardiomyopathy) (HCC) Aortic valve stenosis, etiology of cardiac valve disease unspecified Hyperlipidemia, unspecified hyperlipidemia type Hypertension, unspecified type Controlled type 2 diabetes mellitus without complication, 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 Reason Comments Post Dc Program Call - Needs Attn Worsen ing pain requesting a change in medication Reason Comments Chest Pain Reason Comments Follow Up Has some pain around incision Reason Comments Follow Up Room 26 mo f/uEKG ECHO 08/21/23Cath 05/15/23Cath 07/11/22 Reason Comments Forms Imbler re: d/c summar y (09/11/23) Reason Comments Orders [facility] re: POC (09/20/23) Reason Comments Returning Patient's Call Reason Comments Orders [facility] re: Orders (10/22/23) Reason Comments Hypertension Reason Comments Headaches Reason Comments Oxygen Reason Comments Medication Question Starting new BP medi cation Reason Comments Patient Update [facility] b Specialty Diagnoses / Procedures Referred By Onesimo philippe Referred To Contact MR IMAGING Diagnoses Thunderclap headache Procedures MRI BRAIN WO IVCON MRI BRAIN BRAIN STEM W/O CONTRAST MATERIAL Ca Peterson PA-C [address] [place] [address] Mr Imaging [place] [address] Referral ID Status Reason Start Date Expiration Date V isits Requested Visits Authorized [id number] Closed Auto-Generate d Referral 11/30/2023 12/29/2024 1 1 Reason Comments Follow Up Reason Comments Patient Update Specialty Diagnoses / Procedures [facility] Referred To Contact MR IMAGING Diagnoses Thunderclap headache Procedures MRA CAROTID WO/W IVCON MRA,NECK; W/WO CONTRAST Ca Peterson, PA-C [address] [facility] [place] [address] [place] [address] Referral ID Status Reason Start Date Expiration Date V isits Requested Visits Authorized [id number] Closed Auto-Generate d Referral 11/30/2023 12/29/2024 1 1 Reason Comments Hypertension Diabetes Reason Comments Results A1c and BMP Reason Comments Received Outside Medical Records EKG Reason Comments Medication Update Mounjaro Reason Comments Medication Update Reason Comments Opened In Error Reason Comments Refill Request Reason Onset Date Comments Refill Request 05/28/2024 Reason Comments 6 Month Exam Reason Comments Results Blood work Reason Comments Medication Update Dexcom G7 Reason Comments Medication Problem Dexcom G7 Reason Comments Benign Prostatic Hypertrophy BPH with ANNIE TS Specialty Diagnoses / Procedures [facility] Referred To Contact Urology Diagnoses Benign prostatic hyperplasia with lower urinary tract symptoms, symptom details unspecified Elevated PSA Procedures CONSULT TO UROLOGY OFFICE/OUTPATIENT [facility] 60 MINUTES Denis Rivero MD [address] [place] [address] Phone: tel: fax: Referral ID Status Reason Start Date Expiration Date V isits Requested Visits Authorized [id number] Closed PCP Requested Referral 06/17/2024 06/17/2025 1 1 Reason Comments Medication Update Dexcom G7 - CCS Medi connie Reason Comments ICD-10 codes for Rx Test strips/ lancets Reason Comments Follow Up Follow upWants off B rilinta - was told one yearLOV 02/28/24 William ECHO 01/23/24ZIO 01/08/24 EKG 11/18/23 Surgery 08/16/23 Myectomy / Valve Replacement Reason Comments outside notes Eye exam Reason Comments Follow Up Benign Prostatic Hypertrophy Reason Comments Medicare Wellness Exam Care Teams (unrecognized sec tion and content) Russet Repairer Relationship Specialty Start Date End Date Denis Rivero MD [address] [place] [address] PCP - General Family Practice 07/15/14 Paramjit Peterson MD [address] [facility] [address] Physician Neurosurgery 02/14/17 Wero Geller [address] [place] [address] Physician Optometry 02/14/17 Burke Barron DO [address] [place] [address] Primary Staff Physician Cardiology 10/07/19 [employer], [facility] [address] [place] [phone] Pharmacist Pharmacy 04/12/20 Russet Repairer Relationship Specialty Start Date End Date Denis Rivero MD [address] [place] [address] PCP - General Family Practice 07/15/14 Paramjit Peterson MD [address] [place] [phone] Physician Neurosurgery 02/14/17 Wero Geller [address] [place] [address] Physician Optometry 02/14/17 Burke Barron DO [address] [place] [address] Primary Staff Physician Cardiology 10/07/19 Radha [facility] [address] [place] [address] Pharmacist Pharmacy 04/12/20 Russet Repairer Relationship Specialty Start Date End Date Denis Rivero MD [address] [place] [address] PCP - General Family Practice 07/15/14 Paramjit Peterson MD [address] [place] [address] Physician Neurosurgery 02/14/17 Wero Geller [address] [place] [address] Physician Optometry 02/14/17 Burke Barron DO [address] [place] [address] Primary Staff Physician Cardiology 10/07/19 Hany Garcia formerly [facility] [address] [place] [phone] Pharmacist Pharmacy 04/12/20 Russet Repairer Relationship Specialty Start Date End Date Denis Rivero MD [address] [place] [address] PCP - General Family Practice 07/15/14 Paramjit Peterson MD [address] [facility] [address] Physician Neurosurgery 02/14/17 Wero Geller [address] [place] [address] Physician Optometry 02/14/17 Burke Barron DO [address] [place] [address] Primary Staff Physician Cardiology 10/07/19 Hany Garcia formerly [facility] [address] [place] [phone] Pharmacist Pharmacy 04/12/20 Russet Repairer Relationship Specialty Start Date End Date Denis Rivero MD [address] [place] [address] PCP - General Family Practice 07/15/14 Paramjit Peterson MD [address] [facility] [place] [phone] Physician Neurosurgery 02/14/17 Wero Geller [address] [place] [address] Physician Optometry 02/14/17 Burke Barron, [address] [place] [address] Primary Staff Physician Cardiology 10/07/19 [facility] [address] [place] [address] Pharmacist Pharmacy 04/12/20 Russet Repairer Relationship Specialty Start Date End Date Denis Rivero MD [address] [place] [address] PCP - General Family Practice 07/15/14 Paramjit Peterson MD [address] [place] [phone] Physician Neurosurgery 02/14/17 Wero Geller [address] [place] [address] Physician Optometry 02/14/17 Burke Barron, [address] [place] [address] Primary Staff Physician Cardiology 10/07/19 H[facility] [address] [place] [address] Pharmacist Pharmacy 04/12/20 Russet Repairer Relationship Specialty Start Date End Date Denis Rivero MD [address] [place] [address] PCP - General Family Practice 07/15/14 Paramjit Peterson MD [address] [facility] [place] [phone] Physician Neurosurgery 02/14/17 Wero Geller [address] [place] [address] Physician Optometry 02/14/17 Burke Barron DO [address] [place] [address] Primary Staff Physician Cardiology 10/07/19 [facility] [address] [place] [address] Pharmacist Pharmacy 04/12/20 Russet Repairer Relationship Specialty Start Date End Date Denis Rivero MD [address] [place] [address] PCP - General Family Practice 07/15/14 Paramjit Peterson MD [address] [facility] [place] [address] Physician Neurosurgery 02/14/17 Wero Geller [address] [place] [address] Physician Optometry 02/14/17 Burke Barron DO [address] [place] [address] Primary Staff Physician Cardiology 10/07/19 [facility] [address] [place] [address] Pharmacist Pharmacy 04/12/20 Russet Repairer Relationship Specialty Start Date End Date Denis Rivero MD [address] [place] [address] PCP - General Family Practice 07/15/14 Paramjit Peterson MD [address] [facility] [address] Physician Neurosurgery 02/14/17 Wero Geller [address] [place], [place] [address] Physician Optometry 02/14/17 Burke Barron DO [address] [place] [address] Primary Staff Physician Cardiology 10/07/19 [facility] [address] [place] [address] Pharmacist Pharmacy 04/12/20 Russet Repairer Relationship Specialty Start Date End Date Denis Rivero MD [address] [place] [address] PCP - General Family Practice 07/15/14 Paramjit Peterson MD [address] [facility] [place] [phone] Physician Neurosurgery 02/14/17 Wero Geller [address] [place] [address] Physician Optometry 02/14/17 Burke Barron DO [address] [place] [address] Primary Staff Physician Cardiology 10/07/19 [facility] [address] [place] [address] Pharmacist Pharmacy 04/12/20 Russet Repairer Relationship Specialty Start Date End Date Denis Rivero MD [address] [place] [address] PCP - General Family Practice 07/15/14 Paramjit Peterson MD [address] [place] [address] Physician Neurosurgery 02/14/17 Wero Geller [address] [place], [place] [address] Physician Optometry 02/14/17 [facility] [address] [place] [address] Primary Staff Physician Cardiology 10/07/19 [facility] [address] [place] [phone] Pharmacist Pharmacy 04/12/20 Noe Devlin [address] [place] [address] Ophthalmology 01/04/22 Russet Repairer Relationship Specialty Start Date End Date Denis Rivero MD [address] [place] [address] PCP - General Family Medicine 07/15/14 Paramjit Peterson MD [address] [place] [address] Physician Neurosurgery 02/14/17 Wero Geller [address] [place] [address] Physician Optometry 02/14/17 Burke Barron DO [facility] [place] [address] Primary Staff Physician Cardiology 10/07/19 Hany Garcia formerly [facility] [address] [place] [address] Pharmacist Pharmacy 04/12/20 Noe Devlin [address] [place], [place] [phone] Ophthalmology 01/04/22 Russet Repairer Relationship Specialty Start Date End Date Denis Rivero MD [address] [place] [address] PCP - General Family Medicine 07/15/14 Paramjit Peterson MD [address] [place] [phone] Physician Neurosurgery 02/14/17 Wero Geller [address] [place] [address] Physician Optometry 02/14/17 Burke Barron DO [facility] [place] [address] Primary Staff Physician Cardiology 10/07/19 [facility] [address] [place] [address] Pharmacist Pharmacy 04/12/20 Noe Devlin [address] [place], [place] [phone] Ophthalmology 01/04/22 Russet Repairer Relationship Specialty Start Date End Date Denis Rivero MD [address] [place] [address] PCP - General Family Medicine 07/15/14 Paramjit Peterson MD [address] [place] [address] Physician Neurosurgery 02/14/17 Wero Geller [address] [place] [address] Physician Optometry 02/14/17 Burke Barron DO [address] [place] [address] Primary Staff Physician Cardiology 10/07/19 Hany Garcia formerly [facility] [address] [place] [phone] Pharmacist Pharmacy 04/12/20 Noe Devlin [address] [place], [place] 3[address] Ophthalmology 01/04/22 Russet Repairer Relationship Specialty Start Date End Date Denis Rivero MD [address] [place] [address] PCP - General Family Medicine 07/15/14 Paramjit Peterson MD [address] [facility] [place] [phone] Physician Neurosurgery 02/14/17 Wero Geller [address] [place] [address] Physician Optometry 02/14/17 Burke Barron DO [address] [place] [address] Primary Staff Physician Cardiology 10/07/19 Hany Garcia, formerly [facility] [address] [place] [phone] Pharmacist Pharmacy 04/12/20 Noe Devlin [address] [place], [place] [phone] Ophthalmology 01/04/22 Russet Repairer Relationship Specialty Start Date End Date Denis Rivero MD [address] [place] [address] PCP - General Family Medicine 07/15/14 Paramjit Peterson MD [address] [place] [address] Physician Neurosurgery 02/14/17 Wero Geller [address] [place], [place] [address] Physician Optometry 02/14/17 Burke Barron DO [address], [place] [phone] Primary Staff Physician Cardiology 10/07/19 [facility] [address] [place] [phone] Pharmacist Pharmacy 04/12/20 Noe Devlin [address] [place], [place] [phone] Ophthalmology 01/04/22 Russet Repairer Relationship Specialty Start Date End Date Denis Rivero MD [address] [place] [address] PCP - General Family Medicine 07/15/14 Paramjit Peterson MD [address] [place] [phone] Physician Neurosurgery 02/14/17 Wero Geller [address] [place] [address] Physician Optometry 02/14/17 ArianBurke sims [facility] [place] [address] Primary Staff Physician Cardiology 10/07/19 Radha, [place] [address] [place] [address] Pharmacist Pharmacy 04/12/20 Noe Devlin [address] [place], [place] [phone] Ophthalmology 01/04/22 Russet Repairer Relationship Specialty Start Date End Date Denis Rivero MD [facility] [place] [address] PCP - General Family Medicine 07/15/14 Paramjit Peterson MD [address] [place] [phone] Physician Neurosurgery 02/14/17 Wero Geller [address] [place] [address] Physician Optometry 02/14/17 Burke Barron, [facility] [place] [address] Primary Staff Physician Cardiology 10/07/19 [employer], [place] [address] [place] [address] Pharmacist Pharmacy 04/12/20 Noe Devlin [address] [place], [place] [phone] Ophthalmology 01/04/22 Russet Repairer Relationship Specialty Start Date End Date Denis Rivero MD [address] [place] [address] PCP - General Family Medicine 07/15/14 Paramjit Peterson MD [address] [facility] [place] [phone] Physician Neurosurgery 02/14/17 Wero Geller [address] [place] [address] Physician Optometry 02/14/17 Burke Barron DO [facility] [place] [address] Primary Staff Physician Cardiology 10/07/19 [facility] [address] [place] [address] Pharmacist Pharmacy 04/12/20 Noe Devlin [address] [place] [address] Ophthalmology 01/04/22 Russet Repairer Relationship Specialty Start Date End Date Denis Rivero MD [address] [place] [address] PCP - General Family Medicine 07/15/14 Paramjit Peterson MD [address] [place] [phone] Physician Neurosurgery 02/14/17 Wero Geller [address] [place] [address] Physician Optometry 02/14/17 Burke Barron DO [facility] [place] [address] Primary Staff Physician Cardiology 10/07/19 RadhaHany cardMin[facility] [address] [place] [phone] Pharmacist Pharmacy 04/12/20 Noe Devlin [address] [place], [place] [phone] Ophthalmology 01/04/22 Russet Repairer Relationship Specialty Start Date End Date Denis Rivero MD [address] [place] [address] PCP - General Family Medicine 07/15/14 Paramjit Peterson MD [address] [facility] [place] [address] Physician Neurosurgery 02/14/17 Wero Geller [address] [place] [address] Physician Optometry 02/14/17 Burke Barron DO [address] [place] [address] Primary Staff Physician Cardiology 10/07/19 [facility] [address] [place] [phone] Pharmacist Pharmacy 04/12/20 Noe Devlin [address] [place], [place] [phone] Ophthalmology 01/04/22 Russet Repairer Relationship Specialty Start Date End Date Densi Rivero MD [address] [place] [address] PCP - General Family Medicine 07/15/14 Paramjit Peterson MD [address] [place] [address] Physician Neurosurgery 02/14/17 Wero Geller [address] [place] [address] Physician Optometry 02/14/17 Burke Barron DO [address] [place] [address] Primary Staff Physician Cardiology 10/07/19 [employer], [facility] [address] [place] [address] Pharmacist Pharmacy 04/12/20 Noe Devlin [address] [place] [address] Ophthalmology 01/04/22 Russet Repairer Relationship Specialty Start Date End Date Denis Rivero MD [address] [place] [address] PCP - General Family Medicine 07/15/14 Paramjit Peterson MD [address] [place] [address] Physician Neurosurgery 02/14/17 Wero Geller [address] [place] [address] Physician Optometry 02/14/17 Burke Barron DO [address] [place] [address] Primary Staff Physician Cardiology 10/07/19 [facility] [address] [place] [address] Pharmacist Pharmacy 04/12/20 Noe Devlin [address] [place] [address] Ophthalmology 01/04/22 Russet Repairer Relationship Specialty Start Date End Date Denis Rivero MD [address] [place] [address] PCP - General Family Medicine 07/15/14 Paramjit Peterson MD [address] [place] [phone] Physician Neurosurgery 02/14/17 Wero Geller [address] [place] [address] Physician Optometry 02/14/17 Burke Barron DO [address] [place] [address] Primary Staff Physician Cardiology 10/07/19 Hany Garcia, formerly [facility] [address] [place] [phone] Pharmacist Pharmacy 04/12/20 Noe Devlin [address] [place] [address] Ophthalmology 01/04/22 Russet Repairer Relationship Specialty Start Date End Date Denis Rivero MD [address] [place] [address] PCP - General Family Medicine 07/15/14 Paramjit Peterson MD [address] [place] [address] Physician Neurosurgery 02/14/17 Wero Geller [address] [place] [place], [place] [address]29[address] Physician Optometry 02/14/17 Burke Barron DO [address] [place] [address] Primary Staff Physician Cardiology 10/07/19 Radha, [facility] [address] [place] [address] Pharmacist Pharmacy 04/12/20 Noe Devlin [address] [place], [place] [phone] Ophthalmology 01/04/22 Russet Repairer Relationship Specialty Start Date End Date Denis Rivero MD [address] [place], [place] [address] PCP - General Family Medicine 07/15/14 Paramjit Peterson MD [address] [place] [address] Physician Neurosurgery 02/14/17 Wero Geller [address] [place], [place] 14[address] Physician Optometry 02/14/17 Burke Barron [address] [place] [address] Primary Staff Physician Cardiology 10/07/19 [employer], [facility] [address] [place] [phone] Pharmacist Pharmacy 04/12/20 Noe Devlin [address] [place], [place] [phone] Ophthalmology 01/04/22 Russet Repairer Relationship Specialty Start Date End Date Denis Rivero MD [address], [place] [address] PCP - General Family Medicine 07/15/14 Paramjit Peterson MD [address] [facility] [place] [address] Physician Neurosurgery 02/14/17 Wero Geller [address] [place] [address] Physician Optometry 02/14/17 Burke Barron DO [address] [place] [address] Primary Staff Physician Cardiology 10/07/19 RadhaHany [place] [address] [place] [address] Pharmacist Pharmacy 04/12/20 Noe Devlin [address] [place] [address] Ophthalmology 01/04/22 Russet Repairer Relationship Specialty Start Date End Date Denis Rivero MD [address] [place] [address] PCP - General Family Medicine 07/15/14 Paramjit Peterson MD [address] [facility] [place] [address] Physician Neurosurgery 02/14/17 Wero Geller [address] [place] [address] Physician Optometry 02/14/17 Burke Barron DO [address] [place] [address] Primary Staff Physician Cardiology 10/07/19 [facility] [address] [place] [address] Pharmacist Pharmacy 04/12/20 Noe Devlin [address] [place], [place] 0[address]41 Ophthalmology 01/04/22 Russet Repairer Relationship Specialty Start Date End Date Denis Rivero MD [address] [place] [address] PCP - General Family Medicine 07/15/14 Paramjit Peterson MD [address] [place] [address] Physician Neurosurgery 02/14/17 Wero Geller [address] [place] [address] Physician Optometry 02/14/17 Burke Barron DO [address], [place] [phone] Primary Staff Physician Cardiology 10/07/19 Hany Garcia, formerly [facility] [address] [place] [phone] Pharmacist Pharmacy 04/12/20 Noe Devlin [address] [place], [place] 245001 Ophthalmology 01/04/22 Team Status: Active Member Role Status Dates No Primary Care Physician Family Provider Active NANCI HERNANDEZ Primary Care Provider Active Team Status: Inactive Member Role Status Dates Out of Town Doctor Attending Provider Active Team Status: Active Member Role Status Dates EDWIGE CHRISTINE Primary Care Provider, Attending Pr ovider Active Out of Town Doctor Active Team Status: Inactive Member Role Status Dates EDWIGE CHRISTINE Primary Care Provider, Attending Pr ovider Active Out of Town Doctor Active Russet Repairer Relationship Specialty Start Date End Date Denis Rivero MD [address], [place] [phone] PCP - General Family Medicine 07/15/14 Paramjit Peterson MD [address] [place] [phone] Physician Neurosurgery 02/14/17 Wero Geller [address] [place], [place] [address] Physician Optometry 02/14/17 Burke Barron DO [address], [place] [phone] Primary Staff Physician Cardiology 10/07/19 Hany Garcia formerly [facility] [address] [place] [phone] Pharmacist Pharmacy 04/12/20 Noe Devlin [address] [place] [address] Ophthalmology 01/04/22 Team Status: Inactive Member Role Status Dates EDWIGE CHRISTINE Primary Care Provide r, Attending Provider, Referring Provider Active Team Status: Inactive Member Role Status Dates EDWIGE CHRISTINE Primary Care Provide r, Attending Provider, Referring Provider Active Out of Town Doctor Active Russet Repairer Relationship Specialty Start Date End Date Denis Rivero MD [address] [place] [address] PCP - General Family Medicine 07/15/14 Paramjit Peterson MD [address] [place] [address] Physician Neurosurgery 02/14/17 Wero Geller [address] [place] [address] Physician Optometry 02/14/17 Burke Barron DO [facility] [place] [address] Primary Staff Physician Cardiology 10/07/19 Radha, [place] [address] [place] [phone] Pharmacist Pharmacy 04/12/20 Noe Devlin [address] [place] [address] Ophthalmology 01/04/22 Russet Repairer Relationship Specialty Start Date End Date Denis Rivero MD [address] [place] [address] PCP - General Family Medicine 07/15/14 Paramjit Peterson MD [address] [place] [address] Physician Neurosurgery 02/14/17 Wero Geller [address] [place] [address] Physician Optometry 02/14/17 Burke Barron DO [facility] [place] [address] Primary Staff Physician Cardiology 10/07/19 Radha, [facility] [address] [place] [phone] Pharmacist Pharmacy 04/12/20 Noe Devlin [address] [place] [address] Ophthalmology 01/04/22 Russet Repairer Relationship Specialty Start Date End Date Denis Rivero MD [address] [place] [address] PCP - General Family Medicine 07/15/14 Paramjit Peterson MD [address] [place] [phone] Physician Neurosurgery 02/14/17 Wero Geller [address] [place], [place] 5181690 Physician Optometry 02/14/17 Burke Barron DO [address] [place] [address] Primary Staff Physician Cardiology 10/07/19 Hany Garcia, formerly [facility] [address] [place] [address]-0039256-3332 Pharmacist Pharmacy 04/12/20 Noe Devlin [address] [place] [address] Ophthalmology 01/04/22 Russet Repairer Relationship Specialty Start Date End Date Denis Rivero MD [address] [place] [address] PCP - General Family Medicine 07/15/14 Paramjit Peterson MD [address] [facility] [place] [address]7948333[address]3024 Physician Neurosurgery 02/14/17 Wero Geller [address] [place], [place] 2336990 Physician Optometry 02/14/17 Burke Barron DO [address] [place] [address] Primary Staff Physician Cardiology 10/07/19 Noe Devlin [address] [place] [address] Ophthalmology 01/04/22 Ophelia Null, formerly [facility] [address] [place], [place] 943861 Pharmacist Pharmacy 01/29/23 Russet Repairer Relationship Specialty Start Date End Date Denis Rivero MD [address] [place] [address] PCP - General Family Medicine 07/15/14 Paramjit Peterson MD [address] [place] [address]-9233333-3024 Physician Neurosurgery 02/14/17 Wero Geller [address] [place] [address] Physician Optometry 02/14/17 Burke Barron DO [address] [place] [address] Primary Staff Physician Cardiology 10/07/19 Noe Devlin [address] [place] [address] Ophthalmology 01/04/22 Ophelia Null, formerly [facility] [address] [place] [address] Pharmacist Pharmacy 01/29/23 Russet Repairer Relationship Specialty Start Date End Date Denis Rivero MD [address] [place] [address] PCP - General Family Medicine 07/15/14 Paramjit Peterson MD [address] [facility] [address]3092333[address]3024 Physician Neurosurgery 02/14/17 Wero Geller [address] [place] [address] Physician Optometry 02/14/17 Burke Barron DO [address] [place] [address] Primary Staff Physician Cardiology 10/07/19 Noe Devlin [address] [place] [address] Ophthalmology 01/04/22 Ophelia Null, formerly [facility] [address] [place] [address] Pharmacist Pharmacy 01/29/23 Russet Repairer Relationship Specialty Start Date End Date Denis Rivero MD [address] [place] [address] PCP - General Family Medicine 07/15/14 Paramjit Peterson MD [address] [place] [address]-1821333-3024 Physician Neurosurgery 02/14/17 Wero Geller [address] [place], [place] 8743190 Physician Optometry 02/14/17 Burke Barron DO [address] [place] [address] Primary Staff Physician Cardiology 10/07/19 Noe Devlin [address] [place] [address] Ophthalmology 01/04/22 P[facility]ccaOphelia [facility]iroMin[facility] [address] [place], [place] [phone] Pharmacist Pharmacy 01/29/23 Russet Repairer Relationship Specialty Start Date End Date Denis Rivero MD [address] [place], [place] 60190256 PCP - General Family Medicine 07/15/14 Paramjit Peterson MD [address] [place] [address]-5333333-3024 Physician Neurosurgery 02/14/17 Wero Geller [address] [place], [place] 3697590 Physician Optometry 02/14/17 Burke Barron DO [address] [place] [address] Primary Staff Physician Cardiology 10/07/19 Noe Devlin [address] [place] [address] Ophthalmology 01/04/22 PanOphelia [facility]Mineral [facility] [address] [place] [address] Pharmacist Pharmacy 01/29/23 Russet Repairer Relationship Specialty Start Date End Date Denis Rivero MD [address] [place] [address] PCP - General Family Medicine 07/15/14 Paramjit Peterson MD [address] [place] [address]30[address] Physician Neurosurgery 02/14/17 Wero Geller [address] [place] [address] Physician Optometry 02/14/17 Burke Barron DO [address] [place] [address] Primary Staff Physician Cardiology 10/07/19 Noe Devlin [address] [place] [address] Ophthalmology 01/04/22 [facility] [address] [place] [address] Pharmacist Pharmacy 01/29/23 Russet Repairer Relationship Specialty Start Date End Date Denis Rivero MD [address] [place] [address] PCP - General Family Medicine 07/15/14 Paramjit Peterson MD [address] [place] [address]-8935333-3024 Physician Neurosurgery 02/14/17 Wero Geller [address] [place], [place] 7245390 Physician Optometry 02/14/17 Burke Barron DO [address] [place] [address] Primary Staff Physician Cardiology 10/07/19 Neo Devlin [address] [place] [address] Ophthalmology 01/04/22 [facility] [address] [place] [address] Pharmacist Pharmacy 01/29/23 Russet Repairer Relationship Specialty Start Date End Date Denis Rivero MD [address] [place] [address] PCP - General Family Medicine 07/15/14 Paramjit Peterson MD [address] [place] [address] Physician Neurosurgery 02/14/17 Wero Geller [address] [place], [place] 5149990 Physician Optometry 02/14/17 Burke Barron DO [address] [place] [address] Primary Staff Physician Cardiology 10/07/19 Noe Devlin [address] [place] [address] Ophthalmology 01/04/22 [facility] [address] [place] [address] Pharmacist Pharmacy 01/29/23 Russet Repairer Relationship Specialty Start Date End Date Denis Rivero MD [facility] [place] [address] PCP - General Family Medicine 07/15/14 Paramjit Peterson MD [address] [place] [address]-0531333-3024 Physician Neurosurgery 02/14/17 Wero Geller [address] [place] [address] Physician Optometry 02/14/17 Burke Barron DO [facility] [place] [address] Primary Staff Physician Cardiology 10/07/19 Noe Devlin [address] [place] [address] Ophthalmology 01/04/22 [facility] [address] [place] [address] Pharmacist Pharmacy 01/29/23 Russet Repairer Relationship Specialty Start Date End Date Denis Rivero MD [facility] [place] [address] PCP - General Family Medicine 07/15/14 Paramjit Peterson MD [address] [place] [phone] Physician Neurosurgery 02/14/17 Weor Geller [address] [place] [address] Physician Optometry 02/14/17 Burke Barron DO [address] [place] [address] Primary Staff Physician Cardiology 10/07/19 Noe Devlin [facility] [place] [address] Ophthalmology 01/04/22 PaneccasioOphelia, formerly [facility] [address] [place], [place] [phone] Pharmacist Pharmacy 01/29/23 Russet Repairer Relationship Specialty Start Date End Date Denis Rivero MD [address] [place] [address] PCP - General Family Medicine 07/15/14 Paramjti Peterson MD [address] [place] [address]-9170333-3024 Physician Neurosurgery 02/14/17 Wero Geller [address] [place], [place] 9930490 Physician Optometry 02/14/17 Burke Barron DO [facility] [place] [address] Primary Staff Physician Cardiology 10/07/19 Noe Devlin [address] [place] [address] Ophthalmology 01/04/22 [facility] [address] [place] [address] Pharmacist Pharmacy 01/29/23 Russet Repairer Relationship Specialty Start Date End Date Denis Rivero MD [facility] [place] [address] PCP - General Family Medicine 07/15/14 Paramjit Peterson MD [address] [place] [address]728[address]24 Physician Neurosurgery 02/14/17 Wero Geller [address] [place] [address] Physician Optometry 02/14/17 Burke Barron DO [facility] [place] [address] Primary Staff Physician Cardiology 10/07/19 Noe Devlin [address] [place] [address] Ophthalmology 01/04/22 [facility]Op[facility]ia carrollMin[facility] [address] [place], [place] [phone] Pharmacist Pharmacy 01/29/23 Robert Ferrer MD [address] [place], [place] 1464295 Surgeon Cardiac Surg 07/10/23 Gisel Wallace, HOME PERFORMANCE LABORER.ROUGHENER [address] [place] [address] Referring Cardiology 07/10/23 Russet Repairer Relationship Specialty Start Date End Date Denis Rivero MD [address] [place] [address] PCP - General Family Medicine 07/15/14 Paramjit Peterson MD [address] [place] [address]-5829333-3024 Physician Neurosurgery 02/14/17 Wero Geller [address] [place], [place] 2524590 Physician Optometry 02/14/17 Burke Barron DO [address] [place] [address] Primary Staff Physician Cardiology 10/07/19 Noe Devlin [address] [place] [address] Ophthalmology 01/04/22 Ophelia Null formerly [facility] [address] [place], [place] [phone] Pharmacist Pharmacy 01/29/23 Robert Ferrer MD [address] [place], [place] 9571895 Surgeon Cardiac Surg 07/10/23 Gisel Wallace HOME PERFORMANCE LABORER.ROUGHENER [address] [place] [address] Referring Cardiology 07/10/23 Russet Repairer Relationship Specialty Start Date End Date Denis Rivero MD [address] [place] [address] PCP - General Family Medicine 07/15/14 Paramjit Peterson MD [address] [place] [address]-5073333-3024 Physician Neurosurgery 02/14/17 Wero Geller [address] [place], [place] 4244490 Physician Optometry 02/14/17 Burke Barron DO [address] [place] [address] Primary Staff Physician Cardiology 10/07/19 Noe Devlin [address] [place] [address] Ophthalmology 01/04/22 PanOphelia doveMineral [facility] [address] [place] [address] Pharmacist Pharmacy 01/29/23 [place] [address] [place] [address] [phone] Surgeon Cardiac Surg 07/10/23 Gisel Wallace HOME PERFORMANCE LABORER.ROUGHENER [address] [place] [address] Referring Cardiology 07/10/23 Russet Repairer Relationship Specialty Start Date End Date Denis Rivero MD [address] [place] [address] PCP - General Family Medicine 07/15/14 Paramjit Peterson MD [address] [place] [address]-3024 Physician Neurosurgery 02/14/17 Wero Geller [address] [place], [place] 9792690 Physician Optometry 02/14/17 Burke Barron DO [address] [place], [place] 74[address]256 Primary Staff Physician Cardiology 10/07/19 Noe Devlin [address] [place] [address] Ophthalmology 01/04/22 PaneccasioOphelia, formerly [facility] [address] [place], [place] [phone] Pharmacist Pharmacy 01/29/23 Robert Ferrer MD [address] [place] [address] Surgeon Cardiac Surg 07/10/23 Gisel Wallace, HOME PERFORMANCE LABORER.ROUGHENER [address] [facility] [address] [place] [address] Referring Cardiology 07/10/23 Russet Repairer Relationship Specialty Start Date End Date Denis Rivero MD [address] [place] [address] PCP - General Family Medicine 07/15/14 Paramjit Peterson MD [address] [place] [address]-88733024 Physician Neurosurgery 02/14/17 Wero Geller [address] [place] [address] Physician Optometry 02/14/17 Burke Barron DO [address] [place] [address] Primary Staff Physician Cardiology 10/07/19 Noe Devlin [address] [place] [address] Ophthalmology 01/04/22 PaneccaOphelia monteiro, formerly [facility] [address] [place], [place] [phone] Pharmacist Pharmacy 01/29/23 Robert Ferrer MD [address] [place] [address] Surgeon Cardiac Surg 07/10/23 Gisel Wallace, HOME PERFORMANCE LABORER.ROUGHENER [address] [place] [address] Referring Cardiology 07/10/23 Russet Repairer Relationship Specialty Start Date End Date Denis Rivero MD [address] [place] [address] PCP - General Family Medicine 07/15/14 Paramjit Peterson MD [address] [facility] [address]-0724333-3024 Physician Neurosurgery 02/14/17 Wero Geller [address] [place], [place] 1662090 Physician Optometry 02/14/17 Burke Barron DO [address] [place] [address] Primary Staff Physician Cardiology 10/07/19 Noe Devlin [address] [place] [address] Ophthalmology 01/04/22 Ophelia Null formerly [facility] [address] [place] [address] Pharmacist Pharmacy 01/29/23 Robert Ferrer MD [address] [place] [address] Surgeon Cardiac Surg 07/10/23 Gisel Wallace, HOME PERFORMANCE LABORER.ROUGHENER [address] [place] [address] Referring Cardiology 07/10/23 Russet Repairer Relationship Specialty Start Date End Date Denis Rivero MD [address] [place], [place] 49[address]256 PCP - General Family Medicine 07/15/14 Paramjit Peterson MD [address] [place] [address]-9703333-3024 Physician Neurosurgery 02/14/17 Wero Geller [address] [place], [place] 8245890 Physician Optometry 02/14/17 Burke Barron DO [address] [place] [address] Primary Staff Physician Cardiology 10/07/19 Noe Devlin [address] [place] [address] Ophthalmology 01/04/22 [facility]Min[facility] [address] [place] [address] Pharmacist Pharmacy 01/29/23 Robert Ferrer MD [address] [place] [address] [phone] Surgeon Cardiac Surg 07/10/23 Gisel Wallace, HOME PERFORMANCE LABORER.ROUGHENER [address] [facility] [address] [place] [address] Referring Cardiology 07/10/23 Russet Repairer Relationship Specialty Start Date End Date Denis Rivero MD [address] [place] [address] PCP - General Family Medicine 07/15/14 Paramjit Peterson MD [address] [place] [address]-3024 Physician Neurosurgery 02/14/17 Wero Geller [address] [place] 4259290 Physician Optometry 02/14/17 Burke Barron DO [address] [place] [address] Primary Staff Physician Cardiology 10/07/19 Noe Devlin [address] [place] [address] Ophthalmology 01/04/22 PansanjuanitacaOphelia monteiro, formerly [facility] [address] [place], [place] [phone] Pharmacist Pharmacy 01/29/23 [place] [address] [place] [address] Surgeon Cardiac Surg 07/10/23 Gisel Wallace, HOME PERFORMANCE LABORER.ROUGHENER [address] [place] [address] Referring Cardiology 07/10/23 Russet Repairer Relationship Specialty Start Date End Date Denis Rivero MD [address] [place] [address] PCP - General Family Medicine 07/15/14 Paramjit Peterson MD [address] [place] [address]-97163024 Physician Neurosurgery 02/14/17 Wero Geller [address] [place], [place] 7061290 Physician Optometry 02/14/17 Burke Barron DO [address] [place] [address] Primary Staff Physician Cardiology 10/07/19 Noe Devlin [address] [place] [address] Ophthalmology 01/04/22 PanOphelia dove, formerly [facility] [address] [place], [place] [phone] Pharmacist Pharmacy 01/29/23 Robert Ferrer MD [address] [place] [address] Surgeon Cardiac Surg 07/10/23 Gisel Wallace, HOME PERFORMANCE LABORER.ROUGHENER [address] [facility] [address] [place], [place] 24[address] Referring Cardiology 07/10/23 Russet Repairer Relationship Specialty Start Date End Date Denis Rivero MD [address] [place], [place] [id number] PCP - General Family Medicine 07/15/14 Paramjit Peterson MD [address] [place] [address]-5963333-3024 Physician Neurosurgery 02/14/17 Wero Geller [address] [place], [place] 8331390 Physician Optometry 02/14/17 Burke Barron DO [address] [place] [address] Primary Staff Physician Cardiology 10/07/19 Noe Devlin [address] [place] [address] Ophthalmology 01/04/22 Op[facility]Min[facility] [address] [place] [address] Pharmacist Pharmacy 01/29/23 [place] [address] [place] [address] Surgeon Cardiac Surg 07/10/23 Gisel Wallace, HOME PERFORMANCE LABORER.ROUGHENER [address] [facility] [address] [place] [address] Referring Cardiology 07/10/23 Russet Repairer Relationship Specialty Start Date End Date Denis Rivero MD [facility] [place] [address] PCP - General Family Medicine 07/15/14 Paramjit Peterson MD [address] [place] [address]-6887333-3024 Physician Neurosurgery 02/14/17 Wero Geller [address] [place], [place] 6463090 Physician Optometry 02/14/17 Burke Barron DO [address] [place] [address] Primary Staff Physician Cardiology 10/07/19 Noe Devlin [address] [place] [address] Ophthalmology 01/04/22 Eduard NulliettaMineral [facility] [address] [place] [address] Pharmacist Pharmacy 01/29/23 Robert Ferrer MD [address] [place], [place] [phone] Surgeon Cardiac Surg 07/10/23 Gisel Wallace, HOME PERFORMANCE LABORER.ROUGHENER [address] [facility] [address] [place] [address] Referring Cardiology 07/10/23 Russet Repairer Relationship Specialty Start Date End Date Denis Rivero MD [facility] [place] [address] PCP - General Family Medicine 07/15/14 Paramjit Peterson MD [address] [place] [address]-3024 Physician Neurosurgery 02/14/17 Wero Geller [address] [place], [place] 7258290 Physician Optometry 02/14/17 Burke Barron DO [facility] [place] [address] Primary Staff Physician Cardiology 10/07/19 Noe Devlin [address] [place] [address] Ophthalmology 01/04/22 [facility] [address] [place] [address] Pharmacist Pharmacy 01/29/23 [place] [address] [place] [address] Surgeon Cardiac Surg 07/10/23 Gisel Wallace, HOME PERFORMANCE LABORER.ROUGHENER [address] [facility] [address] [place] [address] Referring Cardiology 07/10/23 Russet Repairer Relationship Specialty Start Date End Date Denis Rivero MD [address] [place], [place] 27635256 PCP - General Family Medicine 07/15/14 Paramjit Peterson MD [address] [place] [address]-7674333-3024 Physician Neurosurgery 02/14/17 Wero Geller [address] [place], [place] 5807690 Physician Optometry 02/14/17 Burke Barron DO [address] [place] [address] Primary Staff Physician Cardiology 10/07/19 Noe Devlin [address] [place] [address] Ophthalmology 01/04/22 Ophelia Null formerly [facility] [address] [place], [place] [phone] Pharmacist Pharmacy 01/29/23 Robert Ferrer MD [address] [place] [address] Surgeon Cardiac Surg 07/10/23 Gisel Wallace, HOME PERFORMANCE LABORER.ROUGHENER [address] [place] [address] Referring Cardiology 07/10/23 Russet Repairer Relationship Specialty Start Date End Date Denis Rivero MD [address] [place] [address] PCP - General Family Medicine 07/15/14 Paramjit Peterson MD [address] [place] [address]-4807333-3024 Physician Neurosurgery 02/14/17 Wero Geller [address] [place], [place] 8555590 Physician Optometry 02/14/17 Burke Barron DO [address] [place] [address] Primary Staff Physician Cardiology 10/07/19 Noe Devlin [address] [place] [address] Ophthalmology 01/04/22 PanOphelia dove, formerly [facility] [address] [place] [address] Pharmacist Pharmacy 01/29/23 [place] [address] [place] [address] Surgeon Cardiac Surg 07/10/23 Gisel Wallace, HOME PERFORMANCE LABORER.ROUGHENER [address] [place] [address] Referring Cardiology 07/10/23 Russet Repairer Relationship Specialty Start Date End Date Denis Rivero MD [address] [place] [address] PCP - General Family Medicine 07/15/14 Paramjit Peterson MD [address] [place] [address]14630[address] Physician Neurosurgery 02/14/17 Wero Geller [address] [place] [address] Physician Optometry 02/14/17 Burke Barron DO [address] [place] [address] Primary Staff Physician Cardiology 10/07/19 Noe Devlin [address] [place] [address] Ophthalmology 01/04/22 PaneccaOphelia monteiro, formerly [facility] [address] [place], [place] [phone] Pharmacist Pharmacy 01/29/23 Robert Ferrer MD [address] [place] [address] Surgeon Cardiac Surg 07/10/23 Gisel Wallace, HOME PERFORMANCE LABORER.ROUGHENER [address] [place] [address] Referring Cardiology 07/10/23 Russet Repairer Relationship Specialty Start Date End Date Denis Rivero MD [address] [place] [address] PCP - General Family Medicine 07/15/14 Paramjit Peterson MD [address] [place] [address]2904 Physician Neurosurgery 02/14/17 Wero Geller [address] [place] [address] Physician Optometry 02/14/17 Burke Barron DO [address] [place] [address] Primary Staff Physician Cardiology 10/07/19 Noe Devlin [address] [place] [address] Ophthalmology 01/04/22 PanOphelia dove, formerly [facility] [address] [place] [address] Pharmacist Pharmacy 01/29/23 [place] [address] [place] [address] Surgeon Cardiac Surg 07/10/23 Gisel Wallace, HOME PERFORMANCE LABORER.ROUGHENER [address] [place] [address] Referring Cardiology 07/10/23 Russet Repairer Relationship Specialty Start Date End Date Denis Rivero MD [address] [place] [address] PCP - General Family Medicine 07/15/14 Paramjit Peterson MD [address] [place] [address]-9538333-3024 Physician Neurosurgery 02/14/17 Wero Geller [address] [place], [place] 6002190 Physician Optometry 02/14/17 Burke Barron DO [address] [place], [place] 42[address]256 Primary Staff Physician Cardiology 10/07/19 Noe Devlin [address] [place] [address] Ophthalmology 01/04/22 PansanjuanitacaOphelia monteiro, formerly [facility] [address] [place], [place] [phone] Pharmacist Pharmacy 01/29/23 Robert Ferrer MD [address] [place] [address] Surgeon Cardiac Surg 07/10/23 Gisel Wallace, HOME PERFORMANCE LABORER.ROUGHENER [address] [place] [address] Referring Cardiology 07/10/23 Russet Repairer Relationship Specialty Start Date End Date Denis Rivero MD [address] [place], [place] [id number] PCP - General Family Medicine 07/15/14 Paramjit Peterson MD [address] [place] [address]-3192333-3024 Physician Neurosurgery 02/14/17 Wero Geller [address] [place], [place] 9949190 Physician Optometry 02/14/17 Burke Barron DO [address] [place] [address] Primary Staff Physician Cardiology 10/07/19 Noe Devlin [address] [place] [address] Ophthalmology 01/04/22 [facility]Min[facility] [address] [place], [place] [phone] Pharmacist Pharmacy 01/29/23 Robert Ferrer MD [address] [place] [address] [phone] Surgeon Cardiac Surg 07/10/23 Gisel Wallace, HOME PERFORMANCE LABORER.ROUGHENER [address] [facility] 225 [place] [address] Referring Cardiology 07/10/23 Russet Repairer Relationship Specialty Start Date End Date Denis Rivero MD [address] [place] [address] PCP - General Family Medicine 07/15/14 Paramjit Peterson MD [address] [place] [address]-30[address] Physician Neurosurgery 02/14/17 Wero Geller [address] [place], [place] 3829090 Physician Optometry 02/14/17 Burke Barron DO [facility] [place] [address] Primary Staff Physician Cardiology 10/07/19 Noe Devlin [address] [place] [address] Ophthalmology 01/04/22 PaneccaOphelia monteiro, formerly [facility] [address] [place], [place] [phone] Pharmacist Pharmacy 01/29/23 Robert Ferrer MD [address] [place], [place] [id number] Surgeon Cardiac Surg 07/10/23 Gisel Wallace, HOME PERFORMANCE LABORER.ROUGHENER [address] [place], [place] [id number] Referring Cardiology 07/10/23 Russet Repairer Relationship Specialty Start Date End Date Denis Rivero MD [facility] [place] [address] PCP - General Family Medicine 07/15/14 Paramjit Peterson MD [address] [place] [address]30[address] Physician Neurosurgery 02/14/17 Wero Geller [address] [place] [address] Physician Optometry 02/14/17 Burke Barron DO [address] [place] [address] Primary Staff Physician Cardiology 10/07/19 Noe Devlin [address] [place] [address] Ophthalmology 01/04/22 Ophelia Null formerly [facility] [address] [place] [address] Pharmacist Pharmacy 01/29/23 Robert Ferrer MD [address] [place] [address] Surgeon Cardiac Surg 07/10/23 Gisel Wallace, HOME PERFORMANCE LABORER.ROUGHENER [address] [facility] [address] [place] [address] Referring Cardiology 07/10/23 Russet Repairer Relationship Specialty Start Date End Date Denis Rivero MD [address] [place] [address] PCP - General Family Medicine 07/15/14 Paramjit Peterson MD [address] [place] [address]-0417333-3024 Physician Neurosurgery 02/14/17 Wero Geller [address] [place], [place] 9124290 Physician Optometry 02/14/17 Burke Barron DO [address] [place] [address] Primary Staff Physician Cardiology 10/07/19 Noe Devlin [address] [place] [address] Ophthalmology 01/04/22 Ophelia Null formerly [facility] [address] [place] [address] Pharmacist Pharmacy 01/29/23 [place] [address] [place] [address] Surgeon Cardiac Surg 07/10/23 Gisel Wallace, HOME PERFORMANCE LABORER.ROUGHENER [address] [facility] [address] [place] [address] Referring Cardiology 07/10/23 Russet Repairer Relationship Specialty Start Date End Date Denis Rivero MD [facility] [place] [address] PCP - General Family Medicine 07/15/14 Paramjit Peterson MD [address] [place] [address] Physician Neurosurgery 02/14/17 Wero Geller [address] [place] 348[address]90 Physician Optometry 02/14/17 Burke Barron DO [address] [place], [place] [id number] Primary Staff Physician Cardiology 10/07/19 Noe Devlin [address] [place] [address] Ophthalmology 01/04/22 [facility] [address] [place] [address] Pharmacist Pharmacy 01/29/23 Robert Ferrer MD [address] [place], [place] [phone] Surgeon Cardiac Surg 07/10/23 Gisel Wallace, HOME PERFORMANCE LABORER.ROUGHENER [address] [facility] [address] [place] [address] Referring Cardiology 07/10/23 Russet Repairer Relationship Specialty Start Date End Date Denis Rivero MD [facility] [place] [address] PCP - General Family Medicine 07/15/14 Paramjit Peterson MD [address] [place] [address] Physician Neurosurgery 02/14/17 Wero Geller [address] [place], [place] 7593990 Physician Optometry 02/14/17 Burke Barron DO [address] [place] [address] Primary Staff Physician Cardiology 10/07/19 Noe Devlin [address] [place] [address] Ophthalmology 01/04/22 [facility]helia, formerly [facility] [address] [place] [address] Pharmacist Pharmacy 01/29/23 Robert Ferrer MD [address] [place] [address] Surgeon Cardiac Surg 07/10/23 Gisel Wallace APRN.ROUGHENER [address] [place] [address] Referring Cardiology 07/10/23 Russet Repairer Relationship Specialty Start Date End Date Denis Rivero MD [address] [place], [place] [id number] PCP - General Family Medicine 07/15/14 Paramjit Peterson MD [address] [place] [address]2664[address]3024 Physician Neurosurgery 02/14/17 Wero Geller [address] [place], [place] 8180590 Physician Optometry 02/14/17 Burke Barron DO [address] [place], [place] 15[address]256 Primary Staff Physician Cardiology 10/07/19 Noe Devlin [address] [place] [address] Ophthalmology 01/04/22 Ophelia Null formerly [facility] [address] [place], [place] [id number] Pharmacist Pharmacy 01/29/23 Robert Ferrer MD [address] [place] [address] Surgeon Cardiac Surg 07/10/23 Gisel Wallace APRN.ROUGHENER [address] [place] [address] Referring Cardiology 07/10/23 Russet Repairer Relationship Specialty Start Date End Date Denis Rivero MD [address] [place] [address] PCP - General Family Medicine 07/15/14 Paramjit Peterson MD [address] [place] [address]-7606333[address]3024 Physician Neurosurgery 02/14/17 Wero Geller [address] [place], [place] 0101590 Physician Optometry 02/14/17 Burke Barron DO [address] [place] [address] Primary Staff Physician Cardiology 10/07/19 Noe Devlin [address] [place] [address] Ophthalmology 01/04/22 PanOphelia dove formerly [facility] [address] [place] [address] Pharmacist Pharmacy 01/29/23 Robert Ferrer MD [address] [place] [address] Surgeon Cardiac Surg 07/10/23 Gisel Wallace APRN.ROUGHENER [address] [place] [address] Referring Cardiology 07/10/23 Russet Repairer Relationship Specialty Start Date End Date Denis Rivero MD [address] [place] [address] PCP - General Family Medicine 07/15/14 Paramjit Peterson MD [address] [place] [address] Physician Neurosurgery 02/14/17 Wero Geller [address] [place], [place] 4380690 Physician Optometry 02/14/17 Burke Barron DO [address] [place] [address] Primary Staff Physician Cardiology 10/07/19 Noe Devlin [address] [place] [address] Ophthalmology 01/04/22 PaneccaOphelia monteiro, formerly [facility] [address] [place] [address] Pharmacist Pharmacy 01/29/23 Robert Ferrer MD [address] [place] [address] Surgeon Cardiac Surg 07/10/23 Gisel Wallace, HOME PERFORMANCE LABORER.ROUGHENER [address] [place] [address] Referring Cardiology 07/10/23 Russet Repairer Relationship Specialty Start Date End Date Denis Rivero MD [address] [place] [address] PCP - General Family Medicine 07/15/14 Paramjit Peterson MD [address] [place] [address] Physician Neurosurgery 02/14/17 Wero Geller [address] [place] [address] Physician Optometry 02/14/17 Burke Barron DO [address] [place] [address] Primary Staff Physician Cardiology 10/07/19 Noe Devlin [address] [place] [address] Ophthalmology 01/04/22 [facility] [address] [place] [address] Pharmacist Pharmacy 01/29/23 [place] [address] [place] [address] Surgeon Cardiac Surg 07/10/23 Gisel Wallace, HOME PERFORMANCE LABORER.ROUGHENER [address] [place] [address] Referring Cardiology 07/10/23 Russet Repairer Relationship Specialty Start Date End Date Denis Rivero MD [address] [place] [address] PCP - General Family Medicine 07/15/14 Paramjit Peterson MD [address] [place] [address]24 Physician Neurosurgery 02/14/17 Wero Geller [address] [place], [place] 6091290 Physician Optometry 02/14/17 Burke Barron DO [address] [place], [place] 43387256 Primary Staff Physician Cardiology 10/07/19 Noe Devlin [address] [place] [address] Ophthalmology 01/04/22 PanOphelia [facility]Mineral [facility] [address] [place], [place] [phone] Pharmacist Pharmacy 01/29/23 Robert Ferrer MD [facility] [place] [address] Surgeon Cardiac Surg 07/10/23 Gisle Wallace, HOME PERFORMANCE LABORER.ROUGHENER [address] [place] [address] Referring Cardiology 07/10/23 Russet Repairer Relationship Specialty Start Date End Date Denis Rivero MD [address] [place], [place] [id number] PCP - General Family Medicine 07/15/14 Paramjit Peterson MD [address] [place] [address]-0266[address]3024 Physician Neurosurgery 02/14/17 Wero Geller [address] [place] [place], [place] 1254690 Physician Optometry 02/14/17 Burke Barron DO [address] [place] [address] Primary Staff Physician Cardiology 10/07/19 Noe Devlin [address] [place] [address] Ophthalmology 01/04/22 P[facility]ccaOphelia [facility]Min[facility] [address] [place], [place] [phone] Pharmacist Pharmacy 01/29/23 Robert Ferrer MD [address] [place] [address] Surgeon Cardiac Surg 07/10/23 Gisel Wallace, HOME PERFORMANCE LABORER.ROUGHENER [address] [facility] [address] [place] [address] Referring Cardiology 07/10/23 Russet Repairer Relationship Specialty Start Date End Date Denis Rivero MD [address] [place] [address] PCP - General Family Medicine 07/15/14 Paramjit Peterson MD [address] [place] [address]-8431333[address]3024 Physician Neurosurgery 02/14/17 Wero Geller [address] [place] 6354490 Physician Optometry 02/14/17 Burke Barron DO [address] [place] [address] Primary Staff Physician Cardiology 10/07/19 Noe Devlin [address] [place] [address] Ophthalmology 01/04/22 P[facility]ccaOphelia [facility]Min[facility] [address] [place], [place] 312[address] Pharmacist Pharmacy 01/29/23 [place] [address] [place] [address] Surgeon Cardiac Surg 07/10/23 Gisel Wallace, HOME PERFORMANCE LABORER.ROUGHENER [address] [place], [place] [address] Referring Cardiology 07/10/23 Russet Repairer Relationship Specialty Start Date End Date Denis Rivero MD [address] [place] [address] PCP - General Family Medicine 07/15/14 Paramjit Peterson MD [address] [place] [address]127[address]3024 Physician Neurosurgery 02/14/17 Wero Geller [address] [place] [place], [place] 1557690 Physician Optometry 02/14/17 Burke Barron DO [address] [place] [address] Primary Staff Physician Cardiology 10/07/19 Noe Devlin [address] [place] [address] Ophthalmology 01/04/22 [facility] [address] [place] [address] Pharmacist Pharmacy 01/29/23 [place] [address] [place] [address] Surgeon Cardiac Surg 07/10/23 Gisel Wallace, HOME PERFORMANCE LABORER.ROUGHENER [address] [facility] [address] [place] [address] Referring Cardiology 07/10/23 Russet Repairer Relationship Specialty Start Date End Date Denis Rivero MD [address] [place] [address] PCP - General Family Medicine 07/15/14 Paramjit Peterson MD [address] [place] [address]3024 Physician Neurosurgery 02/14/17 Wero Geller [address] [place], [place] 6624090 Physician Optometry 02/14/17 Burke Barron DO [address] [place] [address] Primary Staff Physician Cardiology 10/07/19 Noe Devlin [address] [place] [address] Ophthalmology 01/04/22 Ophelia [facility] [address] [place] [address] Pharmacist Pharmacy 01/29/23 Robert Ferrer MD [address] [place] [address] Surgeon Cardiac Surg 07/10/23 Gisel Wallace APRN.ROUGHENER [address] [facility] [address] [place] [address] Referring Cardiology 07/10/23 Rimma Varela APRN.ROUGHENER [address] [place] [address] Electric Accounting Machine Operator Family Medicine 03/31/24 Russet Repairer Relationship Specialty Start Date End Date Denis Rivero MD 0 [place] [address] PCP - General Family Medicine 07/15/14 Paramjit Peterson MD [address] [place] [address] Physician Neurosurgery 02/14/17 Wero Geller [address] [place] [place], [place] 8393790 Physician Optometry 02/14/17 Burke Barron DO [address] [place] [address] Primary Staff Physician Cardiology 10/07/19 Noe Devlin [address] [place] [address] Ophthalmology 01/04/22 Ophelia Null formerly [facility] [address] [place] [address] Pharmacist Pharmacy 01/29/23 Robert Ferrer MD [address] [place] [address] Surgeon Cardiac Surg 07/10/23 Gisel Wallace APRN.ROUGHENER [address] [facility] [address] [place] [address] Referring Cardiology 07/10/23 Rimma Varela APRN.ROUGHENER [address] [place] [address] Electric Accounting Machine Operator Family Medicine 03/31/24 Russet Repairer Relationship Specialty Start Date End Date Denis Rivero MD [address] [place] [address] PCP - General Family Medicine 07/15/14 Paramjit Peterson MD [address] [place] [address] Physician Neurosurgery 02/14/17 Wero Geller [address] [place] [address] Physician Optometry 02/14/17 Burke Barron DO [address] [place] [address] Primary Staff Physician Cardiology 10/07/19 Noe Devlin [address] [place] [address] Ophthalmology 01/04/22 PedroeccaOphelia monteiroMineral [facility] [address] [place], [place] [phone] Pharmacist Pharmacy 01/29/23 Robert Ferrer MD [address] [place], [place] 4886595 Surgeon Cardiac Surg 07/10/23 Gisel Wallace, HOME PERFORMANCE LABORER.ROUGHENER [address] [facility] [address] [place] [address] Referring Cardiology 07/10/23 Rimma Varela, TANGELA.ROUGHENER [address] [place] [address] Electric Accounting Machine Operator Family Medicine 03/31/24 Russet Repairer Relationship Specialty Start Date End Date Denis Rivero MD [address] [place] [address] PCP - General Family Medicine 07/15/14 Paramjit Peterson MD [address] [place] [address]3024 Physician Neurosurgery 02/14/17 Wero Geller [address] [place] [address] Physician Optometry 02/14/17 Burke Barron DO [address] [place] [address] Primary Staff Physician Cardiology 10/07/19 Noe Devlin [address] [place] [address] Ophthalmology 01/04/22 Ophelia Null formerly [facility] [address] [place] [address] Pharmacist Pharmacy 01/29/23 [place] [address] [place] [address] Surgeon Cardiac Surg 07/10/23 Gisel Wallace, HOME PERFORMANCE LABORER.ROUGHENER [address] [place] [address] Referring Cardiology 07/10/23 Rimma Varela, HOME PERFORMANCE LABORER.ROUGHENER [address] [place] [address] Electric Accounting Machine Operator Family Medicine 03/31/24 Russet Repairer Relationship Specialty Start Date End Date Denis Rivero MD PCP - General Family Medicine 07/15/14 Paramjit Peterson MD [address] [place] [address]30[address] Physician Neurosurgery 02/14/17 Wero Geller [address] [place] [place], [place] 3414290 Physician Optometry 02/14/17 Burke Barron DO [address] [place] [address] Primary Staff Physician Cardiology 10/07/19 Noe Devlin [address] [place] [address] Ophthalmology 01/04/22 Op[facility] [address] [place] [address] Pharmacist Pharmacy 01/29/23 Robert Ferrer MD [address] [place] [address] Surgeon Cardiac Surg 07/10/23 Gisel Wallace, HOME PERFORMANCE LABORER.ROUGHENER [address] [facility] [address] [place] [address] Referring Cardiology 07/10/23 Rimma Varela, TANGELA.ROUGHENER [address] [place], [place] [phone] Electric Accounting Machine Operator Family Medicine 03/31/24 Russet Repairer Relationship Specialty Start Date End Date Denis Rivero MD PCP - General Family Medicine 07/15/14 Paramjit Peterson MD [address] [place] [address]30[address] Physician Neurosurgery 02/14/17 Wero Geller [address] [place] [place], [place] 9125290 Physician Optometry 02/14/17 Burke Barron DO [address] [place] [address] Primary Staff Physician Cardiology 10/07/19 Noe Devlin [address] [place] [address] Ophthalmology 01/04/22 LyndsaycaOphelia monteiroMineral [facility] [address] [place] [address] Pharmacist Pharmacy 01/29/23 Robert Ferrer MD [address] [place], [place] 6471295 Surgeon Cardiac Surg 07/10/23 Gisel Wallace, HOME PERFORMANCE LABORER.ROUGHENER [address] [facility] [address] [place] [address] Referring Cardiology 07/10/23 Rimma Varela, TANGELA.ROUGHENER [address] [place], [place] 8[address]256 Electric Accounting Machine Operator Family Medicine 03/31/24 Russet Repairer Relationship Specialty Start Date End Date Denis Rivero MD PCP - General Family Medicine 07/15/14 Paramjit Peterson MD [address] [place] [address]-1174[address]3024 Physician Neurosurgery 02/14/17 Wero Geller [address] [place] [place], [place] 7209790 Physician Optometry 02/14/17 Burke Barron DO [address] [place] [address] Primary Staff Physician Cardiology 10/07/19 Noe Devlin [address] [place] [address] Ophthalmology 01/04/22 PansanjuanitacaOphelia monteiroMineral [facility] [address] [place] [address] Pharmacist Pharmacy 01/29/23 Robert Ferrer MD [address] [place], [place] 8476695 Surgeon Cardiac Surg 07/10/23 Gisel Wallace, HOME PERFORMANCE LABORER.ROUGHENER [address] [facility] [address] [place] [address] Referring Cardiology 07/10/23 Rimma Varela, HOME PERFORMANCE LABORER.ROUGHENER [address] [place] [address] Electric Accounting Machine Operator Family Medicine 03/31/24 Russet Repairer Relationship Specialty Start Date End Date Denis Rivero MD PCP - General Family Medicine 07/15/14 Paramjit Peterson MD [address] [place] [address]3024 Physician Neurosurgery 02/14/17 Wero Geller [address] [place], [place] 8764490 Physician Optometry 02/14/17 Burke Barron DO [address] [place] [address] Primary Staff Physician Cardiology 10/07/19 oNe Devlin [address] [place] [address] Ophthalmology 01/04/22 Ophelia [facility]Min[facility] [address] [place] [address] Pharmacist Pharmacy 01/29/23 Robert Ferrer MD [address] [place], [place] 2262895 Surgeon Cardiac Surg 07/10/23 Gisel Wallace, HOME PERFORMANCE LABORER.ROUGHENER [address] [place] [address] Referring Cardiology 07/10/23 Rimma Varela, HOME PERFORMANCE LABORER.ROUGHENER [address] [place] [address] Electric Accounting Machine Operator Family Medicine 03/31/24 Russet Repairer Relationship Specialty Start Date End Date Denis Rivero MD PCP - General Family Medicine 07/15/14 Paramjit Peterson MD [address] [place] [address]-1504[address]3024 Physician Neurosurgery 02/14/17 Wero Geller [address] [place], [place] 4218790 Physician Optometry 02/14/17 Burke Barron DO [address] [place], [place] 84418256 Primary Staff Physician Cardiology 10/07/19 Noe Devlin [address] [place] [address] Ophthalmology 01/04/22 Op[facility] [address] [place] [address] Pharmacist Pharmacy 01/29/23 Robert Ferrer MD [address] [place], [place] 6174195 Surgeon Cardiac Surg 07/10/23 Gisel Wallace, HOME PERFORMANCE LABORER.ROUGHENER [address] [place] [address] Referring Cardiology 07/10/23 Rimma Varela, HOME PERFORMANCE LABORER.ROUGHENER [address] [place] [address] Electric Accounting Machine Operator Family Medicine 03/31/24 Russet Repairer Relationship Specialty Start Date End Date Denis Rivero MD PCP - General Family Medicine 07/15/14 Paramjit Peterson MD [address] [place] [address]-2178[address]3024 Physician Neurosurgery 02/14/17 Wero Geller [address] [place] [place], [place] 2286490 Physician Optometry 02/14/17 Burke Barron DO [address] [place] [address] Primary Staff Physician Cardiology 10/07/19 Noe Devlin [address] [place] [address] Ophthalmology 01/04/22 Op[facility] [address] [place] [address] Pharmacist Pharmacy 01/29/23 Robert Ferrer MD [address] [place], [place] [phone] Surgeon Cardiac Surg 07/10/23 Gisel Wallace, HOME PERFORMANCE LABORER.ROUGHENER [address] [place] [address] Referring Cardiology 07/10/23 Rimma Varela, HOME PERFORMANCE LABORER.ROUGHENER [address] [place] [address] Electric Accounting Machine Operator Family Medicine 03/31/24 Russet Repairer Relationship Specialty Start Date End Date Denis Rivero MD PCP - General Family Medicine 07/15/14 Paramjit Peterson MD [address] [place] [address]-5076[address]3024 Physician Neurosurgery 02/14/17 Wero Geller [address] [place] [place], [place] 2741290 Physician Optometry 02/14/17 Burke Barron DO [address] [place] [address] Primary Staff Physician Cardiology 10/07/19 Noe Devlin [address] [place] [address] Ophthalmology 01/04/22 Op[facility] [address] [place] [address] Pharmacist Pharmacy 01/29/23 Robert Ferrer MD [address] [place], [place] 4854495 Surgeon Cardiac Surg 07/10/23 Gisel Wallace, HOME PERFORMANCE LABORER.ROUGHENER [address] [facility] [address] [place] [address] Referring Cardiology 07/10/23 Rimma Varela, TANGELA.ROUGHENER [address] [place] [address] Electric Accounting Machine Operator Family Medicine 03/31/24 Russet Repairer Relationship Specialty Start Date End Date Denis Rivero MD PCP - General Family Medicine 07/15/14 Paramjit Peterson MD [address] [place] [address]-25513[address]3024 Physician Neurosurgery 02/14/17 Wero Geller [address] [place] [place], [place] 9541390 Physician Optometry 02/14/17 Burke Barron DO [address] [place] [address] Primary Staff Physician Cardiology 10/07/19 Noe Devlin [address] [place] [address] Ophthalmology 01/04/22 PaneccaOphelia mon[facility]iroMineral [facility] [address] [place] [address] Pharmacist Pharmacy 01/29/23 Robert Ferrer MD [address] [place], [place] 2444795 Surgeon Cardiac Surg 07/10/23 Gisel Wallace, HOME PERFORMANCE LABORER.ROUGHENER [address] [place] [address] Referring Cardiology 07/10/23 Rimma Varela APRN.ROUGHENER [address] [place] [address] Electric Accounting Machine Operator Family Medicine 03/31/24 Russet Repairer Relationship Specialty Start Date End Date Denis Rivero MD PCP - General Family Medicine 07/15/14 Paramjit Peterson MD [address] [place] [address]-3256333[address]3024 Physician Neurosurgery 02/14/17 Wero Geller [address] [place] [place], [place] 6815490 Physician Optometry 02/14/17 Burke Barron DO [address] [place], [place] 74960256 Primary Staff Physician Cardiology 10/07/19 Noe Devlin [address] [place] [address] Ophthalmology 01/04/22 PaneccaOphelia monteiro, formerly [facility] [address] [place] [address] Pharmacist Pharmacy 01/29/23 Robert Ferrer MD [address] [place], [place] 8694295 Surgeon Cardiac Surg 07/10/23 Gisel Wallace, HOME PERFORMANCE LABORER.ROUGHENER [address] [place] [address] Referring Cardiology 07/10/23 Rimma Varela, TANGELA.ROUGHENER [address] [place] [address] Electric Accounting Machine Operator Family Medicine 03/31/24 Russet Repairer Relationship Specialty Start Date End Date Denis Rivero MD PCP - General Family Medicine 07/15/14 Paramjit Peterson MD [address] [place] [address]-3971333[address]3024 Physician Neurosurgery 02/14/17 Wero Geller [address] [place], [place] 2864090 Physician Optometry 02/14/17 Burke Barron DO [address] [place], [place] 87712256 Primary Staff Physician Cardiology 10/07/19 Noe Devlin [address] [place] [address] Ophthalmology 01/04/22 PaneccasiOphelia carroll formerly [facility] [address] [place], [place] [phone] Pharmacist Pharmacy 01/29/23 Robert Ferrer MD [address] [place], [place] [id number] Surgeon Cardiac Surg 07/10/23 Gisel Wallace, HOME PERFORMANCE LABORER.ROUGHENER [address] [place] [address] Referring Cardiology 07/10/23 Rimma Varela, TANGELA.ROUGHENER [address] [place] [address] Electric Accounting Machine Operator Family Medicine 03/31/24 Russet Repairer Relationship Specialty Start Date End Date Denis Rivero MD PCP - General Family Medicine 07/15/14 Paramjit Peterson MD [address] [place] [address]-0201333-3024 Physician Neurosurgery 02/14/17 Wero Geller [address] [place], [place] 9406890 Physician Optometry 02/14/17 Burke Barron DO [address] [place], [place] 64387256 Primary Staff Physician Cardiology 10/07/19 Noe Devlin [address] [place] [address] Ophthalmology 01/04/22 PaneccasiOphelia carroll, formerly [facility] [address] [place], [place] [phone] Pharmacist Pharmacy 01/29/23 Robert Ferrer MD [address] [place] [address] Surgeon Cardiac Surg 07/10/23 Gisel Wallace, HOME PERFORMANCE LABORER.ROUGHENER [address] [place] [address] Referring Cardiology 07/10/23 Rimma Varela APRN.ROUGHENER [address] [place] [address] Electric Accounting Machine Operator Family Medicine 03/31/24 Russet Repairer Relationship Specialty Start Date End Date Denis Rivero MD PCP - General Family Medicine 07/15/14 Paramjit Peterson MD [address] [place] [address]-0830333-3024 Physician Neurosurgery 02/14/17 Wero Geller [address] [place], [place] 3525190 Physician Optometry 02/14/17 Burke Barron DO [address] [place] [address] Primary Staff Physician Cardiology 10/07/19 Noe Devlin [address] [place] [address] Ophthalmology 01/04/22 PaneccaOphelia monteiro, formerly [facility] [address] [place], [place] [phone] Pharmacist Pharmacy 01/29/23 Robert Ferrer MD [address] [place], [place] 1123095 Surgeon Cardiac Surg 07/10/23 Gisel Wallace, HOME PERFORMANCE LABORER.ROUGHENER [address] [place] [address] Referring Cardiology 07/10/23 Rimma Varela, HOME PERFORMANCE LABORER.ROUGHENER [address] [place] [address] Electric Accounting Machine Operator Family Medicine 03/31/24 Russet Repairer Relationship Specialty Start Date End Date Denis Rivero MD PCP - General Family Medicine 07/15/14 Paramjit Peterson MD [address] [place] [phone] Physician Neurosurgery 02/14/17 Wero Geller [address] [place], [place] 8715690 Physician Optometry 02/14/17 Burke Barron DO [address] [place] [address] Primary Staff Physician Cardiology 10/07/19 Noe Devlin [address] [place] [address] Ophthalmology 01/04/22 P[facility]ccaOphelia mon[facility]iroMineral [facility] [address] [place], [place] [id number] Pharmacist Pharmacy 01/29/23 Robert Ferrer MD [address] [place], [place] [id number] Surgeon Cardiac Surg 07/10/23 Gisel Wallace, HOME PERFORMANCE LABORER.ROUGHENER [address] [place] [address] Referring Cardiology 07/10/23 Rimma Varela, TANGELA.ROUGHENER [address] [place] [address] Electric Accounting Machine Operator Family Medicine 03/31/24 Russet Repairer Relationship Specialty Start Date End Date Denis Rivero MD PCP - General Family Medicine 07/15/14 Paramjit Peterson MD [address] [place] [address]-3024 Physician Neurosurgery 02/14/17 Wero Geller [address] [place], [place] 4623090 Physician Optometry 02/14/17 Burke Barron DO [address] [place] [address] Primary Staff Physician Cardiology 10/07/19 Noe Devlin [address] [place] [address] Ophthalmology 01/04/22 PaneccasiOphelia carroll, formerly [facility] [address] [place], [place] [phone] Pharmacist Pharmacy 01/29/23 Robert Ferrer MD [address] [place], [place] [id number] Surgeon Cardiac Surg 07/10/23 Gisel Wallace, HOME PERFORMANCE LABORER.ROUGHENER [address] [place] [address] Referring Cardiology 07/10/23 Rimma Varela, TANGELA.ROUGHENER [address] [place] [address] Electric Accounting Machine Operator Family Medicine 03/31/24 Russet Repairer Relationship Specialty Start Date End Date Denis Rivero MD PCP - General Family Medicine 07/15/14 Paramjit Peterson MD [address] [place] [address]-3024 Physician Neurosurgery 02/14/17 Wero Geller [address] [place], [place] [address] Physician Optometry 02/14/17 Burke Barron DO [address] [place] [address] Primary Staff Physician Cardiology 10/07/19 Noe Devlin [address] [place] [address] Ophthalmology 01/04/22 [facility]Ophelia [facility]rollMin[facility] [address] [place], [place] [phone] Pharmacist Pharmacy 01/29/23 [place] [address] [place] [address] [phone] Surgeon Cardiac Surg 07/10/23 Gisel Wallace, HOME PERFORMANCE LABORER.ROUGHENER [address] [place] [address] Referring Cardiology 07/10/23 Rimma Varela, TANGELA.ROUGHENER [address] [place] [address] Electric Accounting Machine Operator Family Medicine 03/31/24 Russet Repairer Relationship Specialty Start Date End Date Denis Rivero MD PCP - General Family Medicine 07/15/14 Paramjit Peterson MD [address] [place] [address] Physician Neurosurgery 02/14/17 Wero Geller [address] [place] [address] Physician Optometry 02/14/17 Burke Barron DO [address] [place] [address] Primary Staff Physician Cardiology 10/07/19 Noe Devlin [address] [place] [address] Ophthalmology 01/04/22 [facility]ccaOphelia monteiroMineral [facility] [address] [place] [address] Pharmacist Pharmacy 01/29/23 [place] [address] [place] [address] [phone] Surgeon Cardiac Surg 07/10/23 Gisel Wallace, HOME PERFORMANCE LABORER.ROUGHENER [address] [place] [address] Referring Cardiology 07/10/23 Rimma Varela, TANGELA.ROUGHENER [address] [place] [address] Electric Accounting Machine Operator Family Medicine 03/31/24 Russet Repairer Relationship Specialty Start Date End Date Denis Rivero MD PCP - General Family Medicine 07/15/14 Paramjit Peterson MD [address] [place] [address] Physician Neurosurgery 02/14/17 Wero Geller [address] [place] [address] Physician Optometry 02/14/17 Burke Barron DO [address] [place] [address] Primary Staff Physician Cardiology 10/07/19 Noe Devlin [address] [place] [address] Ophthalmology 01/04/22 [facility]ccaOphelia monteiroMin[facility] [address] [place], [place] [phone] Pharmacist Pharmacy 01/29/23 Robert Ferrer MD [address] [place], [place] [phone] Surgeon Cardiac Surg 07/10/23 Gisel Wallace, HOME PERFORMANCE LABORER.ROUGHENER [address] [place] [address] Referring Cardiology 07/10/23 Rimma Varela APRN.ROUGHENER [address] [place] [address] Electric Accounting Machine Operator Family Medicine 03/31/24 Russet Repairer Relationship Specialty Start Date End Date Denis Rivero MD PCP - General Family Medicine 07/15/14 Paramjit Peterson MD [address] [place] [phone] Physician Neurosurgery 02/14/17 Wero Geller [address] [place] [address] Physician Optometry 02/14/17 Burke Barron DO [address] [place] [address] Primary Staff Physician Cardiology 10/07/19 Noe Devlin [address] [place] [address] Ophthalmology 01/04/22 Ophelia [facility]Min[facility] [address] [place] [address] Pharmacist Pharmacy 01/29/23 [place] [address] [place] [address] [phone] Surgeon Cardiac Surg 07/10/23 Gisel Wallace, HOME PERFORMANCE LABORER.ROUGHENER [address] [place] [address] Referring Cardiology 07/10/23 Rimma Varela APRN.ROUGHENER [address] [place] [address] Electric Accounting Machine Operator Family Medicine 03/31/24 Russet Repairer Relationship Specialty Start Date End Date Denis Rivero MD PCP - General Family Medicine 07/15/14 Paramjit Peterson MD [address] [place] [phone] Physician Neurosurgery 02/14/17 Wero Geller [address] [place] [address] Physician Optometry 02/14/17 Burke Barron DO [address] [place] [address] Primary Staff Physician Cardiology 10/07/19 Noe Devlin [facility] [place] [address] Ophthalmology 01/04/22 [facility]Min[facility] [address] [place] [address] Pharmacist Pharmacy 01/29/23 Robert Ferrer MD [address] [place] [phone] Surgeon Cardiac Surg 07/10/23 Rimma Varela APRN.ROUGHENER [address] [place] [phone] Electric Accounting Machine Operator Family Medicine 03/31/24 Russet Repairer Relationship Specialty Start Date End Date Denis Rivero MD PCP - General Family Medicine 07/15/14 Paramjit Peterson MD [address] [place] [address] Physician Neurosurgery 02/14/17 Wero Geller [address] [place] [address] Physician Optometry 02/14/17 Burke Barron DO [address] [place] [address] Primary Staff Physician Cardiology 10/07/19 Noe Devlin [address] [place] [address] Ophthalmology 01/04/22 Op[facility]Min[facility] [address] [place] [address] Pharmacist Pharmacy 01/29/23 [place] [address] [place] [phone] Surgeon Cardiac Surg 07/10/23 Rimma Varela APRN.ROUGHENER [address] [place] [phone] Electric Accounting Machine Operator Family Medicine 03/31/24 Russet Repairer Relationship Specialty Start Date End Date Denis Rivero MD PCP - General Family Medicine 07/15/14 Paramjit Peterson MD [address] [place] [phone] Physician Neurosurgery 02/14/17 Wero Geller [address] [place] [address] Physician Optometry 02/14/17 Burke Barron DO [address] [place] [address] Primary Staff Physician Cardiology 10/07/19 Noe Devlin [address] [place] [address] Ophthalmology 01/04/22 [facility] [address] [place] [address] Pharmacist Pharmacy 01/29/23 [place] [address] [place] [address] Surgeon Cardiac Surg 07/10/23 Rimma Varela APRN.ROUGHENER [address] [place] [address] [phone] Electric Accounting Machine Operator Family Medicine 03/31/24 Russet Repairer Relationship Specialty Start Date End Date Denis Rivero MD PCP - General Family Medicine 07/15/14 Paramjit Peterson MD [address] [place] [address] Physician Neurosurgery 02/14/17 Wero Geller [address] [place], [place] [address] Physician Optometry 02/14/17 Burke Barron DO [address] [place] [address] Primary Staff Physician Cardiology 10/07/19 Noe Devlin [address] [place] [address] Ophthalmology 01/04/22 [facility] [address] [place] [address] Pharmacist Pharmacy 01/29/23 Robert Ferrer MD [address] [place] [address] Surgeon Cardiac Surg 07/10/23 Rimma Varela APRN.ROUGHENER [address] [place] [address] Electric Accounting Machine Operator Family Medicine 03/31/24 Russet Repairer Relationship Specialty Start Date End Date Denis Rivero MD PCP - General Family Medicine 07/15/14 Paramjit Peterson MD [address] [place] [address] Physician Neurosurgery 02/14/17 Wero Geller [address] [place] [address] Physician Optometry 02/14/17 Burke Barron DO [address] [place] [address] Primary Staff Physician Cardiology 10/07/19 Noe Devlin [address] [place] [address] Ophthalmology 01/04/22 [facility] [address] [place] [address] Pharmacist Pharmacy 01/29/23 Robert Ferrer MD [address] [place] [address] Surgeon Cardiac Surg 07/10/23 Rimma Varela APRN.CNP [address] [place] [address] Electric Accounting Machine Operator Family Medicine 03/31/24 Russet Repairer Relationship Specialty Start Date End Date Denis Rivero MD PCP - General Family Medicine 07/15/14 Paramjit Peterson MD [address] [place] [phone] Physician Neurosurgery 02/14/17 Wero Geller [address] [place], [place] [phone] Physician Optometry 02/14/17 Burke Barron DO [address] [place] [address] Primary Staff Physician Cardiology 10/07/19 Noe Devlin [address] [place] [address] Ophthalmology 01/04/22 PanOphelia dove, formerly [facility] [address] [place], [place] [phone] Pharmacist Pharmacy 01/29/23 Robert Ferrer MD [address] [place] [address] Surgeon Cardiac Surg 07/10/23 Rimma Varela APRN.ROUGHENER [address] [place] [address] Electric Accounting Machine Operator Family Medicine 03/31/24 Russet Repairer Relationship Specialty Start Date End Date Denis Rivero MD PCP - General Family Medicine 07/15/14 Paramjit Peterson MD [address] [place] [address] Physician Neurosurgery 02/14/17 Wero Geller [address] [place], [place] 32[address] Physician Optometry 02/14/17 Burke Barron DO [address] [place] [address] Primary Staff Physician Cardiology 10/07/19 Noe Devlin [address] [place] [address] Ophthalmology 01/04/22 Ophelia Null, formerly [facility] [address] [place] [address] Pharmacist Pharmacy 01/29/23 Robert Ferrer MD [address] [place] [address] Surgeon Cardiac Surg 07/10/23 Rimma Varela APRN.ROUGHENER [address] [place] [address] Electric Accounting Machine Operator Family Medicine 03/31/24 Russet Repairer Relationship Specialty Start Date End Date Denis Rivero MD PCP - General Family Medicine 07/15/14 Paramjit Peterson MD [address] [place] [address] Physician Neurosurgery 02/14/17 Wero Geller [address] [place], [place] 14[address]190 Physician Optometry 02/14/17 Burke Barron DO [address] [place], [place] [phone] Primary Staff Physician Cardiology 10/07/19 Noe Devlin [address] [place] [address] Ophthalmology 01/04/22 Ophelia Null [facility] [address] [place] [address] Pharmacist Pharmacy 01/29/23 Robert Ferrer MD [address] [place] [address] [phone] Surgeon Cardiac Surg 07/10/23 Rimma Varela APRN.ROUGHENER [address] [place] [address] Electric Accounting Machine Operator Family Medicine 03/31/24 Goals (unrecognized section and content) Goals may be documented in a n alternate sectionGoals may be documented in an alternate sectionGoals may be documented in an alternate sectionGoals may be documented in an alternate sectionGoals may be documented in an alternate section FOR RECORDS PERTAINING TO PATIENTS WHO ARE OR HAVE BEEN ENROLLED IN A CHEMICAL DEPENDENCY/SUBSTANCEABUSE PROGRAM, SOME INFORMATION MAY BE OMITTED. This clinical summary was aggregated from multiple sources. Caution should be exercised in using it in the provision of clinical care. This summary normalizes information from multiple sources, and as a consequence, information in this document may materially change the coding, format and clinical context of patient data. In addition, data may be omitted in some cases. CLINICAL DECISIONS SHOULD BE BASED ON THE PRIMARY CLINICAL RECORDS. [facility] [email or web address]. provides no warranty or guarantee of the accuracy or completeness of information in this document.
== END | disposition home or self-care (01) ==
LOC: PSN 06:55
PROVIDERS: PCP Family Medicine; Referring Provider Nurse Practitioner Family; Visit Provider Nurse Practitioner Family
DX: R00.2 Palpitations (principal)
CPT/HCPCS: 93005